=== PATIENT | male | born 1945 | race American Indian/Alaskan Native ===

== ENCOUNTER 2018-01-18 20:05 | Inpatient (IN) | payer MEDICARE ==
--- NOTE | 2018-01-18 20:49 | Emergency Department Report ---
HPI - General Chief Complaint: Altered Mental Status Time Seen by Provider: 01/18/18 20:38 - HPI HPI: 72-year-old male presents to the emergency department via EMS from [facility] with a complaint of altered mental status. Patient presents awake but confused and with a moderate fever. The notes from the facility say that the resident is usually alert and oriented but he has been having some functional decline and is altered. He was supposed to have a revision of a dialysis port on this week with the appointment to be canceled. His primary care physician is Dr. Keller. There is a listing of a past medical history of prostate cancer, end-stage renal disease, non-insulin- dependent diabetes, history of viral hepatitis, hypertension and he is known for having generalized muscle weakness and/or lack of coordination. The patient himself is a poor historian. ED Past Medical Hx - Past Medical History Previous Medical History?: Yes Hx Hypertension: Yes (unknown) Hx Diabetes: Yes (unknown) Hx Renal Disease: Yes (unknown) - Surgical History Past Surgical History?: Yes Additional Surgical History: dialysis port on right side of chest, left front of foot amputation. - Social History Smoking Status: Unknown if ever smoked Substance Use Type: None ED Review of Systems ROS: Stated complaint: AMS Other details as noted in HPI Comment: Unobtainable due to pts medical conditions Physical Exam - Physical Exam Vital Signs: Vital Signs 01/18/18 20:11 Temperature 103.6 F H Pulse Rate 110 H Blood Pressure 130/66 O2 Sat by Pulse 99 Oximetry Physical Exam: GENERAL: The patient is well-developed well-nourished. HENT: Normocephalic. Atraumatic. Patient has moist mucous membranes. EYES: Extraocular motions are intact. Pupils equal reactive to light bilaterally. NECK: Supple. Trachea is midline. CHEST/LUNGS: Clear to auscultation. There is no respiratory distress noted. Dialysis port to the right side of the chest. HEART/CARDIOVASCULAR: Regular. There is mild tachycardia. There is no murmur. ABDOMEN: Abdomen is soft, nontender. Patient has normal bowel sounds. There is no abdominal distention. SKIN: Skin is hot but dry. NEURO: Patient is awake but confused. He does follow commands. Oriented to name only. MUSCULOSKELETAL: There is no tenderness or deformity. There is no evidence of acute injury. ED Course Vital Signs 01/18/18 20:11 Temperature 103.6 F H Pulse Rate 110 H Blood Pressure 130/66 O2 Sat by Pulse 99 Oximetry ED Medical Decision Making - Lab Data Result diagrams: 01/18/18 21:01 01/18/18 21:01 - EKG Data -: EKG Interpreted by Me EKG shows normal: sinus rhythm (PVCs), axis, intervals, QRS complexes, ST-T waves Rate: tachycardia (121 bpm) - EKG Data When compared to previous EKG there are: previous EKG unavailable Interpretation: other (sinus tachycardia at 121 bpm with PVCs) - Radiology Data Radiology results: report reviewed, image reviewed interpreted by me: Chest x-ray does not show any acute process. There are no pleural effusions, obvious pneumonia and there is no pneumothorax. EXAM: CT HEAD/BRAIN WO CON HISTORY: AMS TECHNIQUE: Axial noncontrast CT images of the brain were performed. Total exam DLP 1380.72 mGy-cm Comparison: None FINDINGS: Exam is motion degraded. There is cortical atrophy and periventricular white matter hypodensity most suggestive of small vessel ischemic disease. There is minimal bilateral basal ganglia calcification. There are no acute extra-axial fluid collections or intraparenchymal blood products. Axial sequence was performed with persistent motion artifact. Mild prominence of the ventricles appears to be due to ex vacuo dilatation. There is bilateral anterior and posterior ethmoid air cell mucosal thickening. Mild bilateral maxillary sinus mucosal thickening. No displaced calvarial fracture. Mildly dysconjugate gaze. The orbital cones and apices are grossly normal. IMPRESSION: Cortical and central atrophy. No acute transcortical infarct or bleed identified. Ethmoid and maxillary sinus mucosal thickening. If symptoms persist and there are no contraindications, recommend MRI brain with diffusion-weighted imaging. Transcribed By: ANN Dictated By: TERRANCE BRENNER Electronically Authenticated By: TERRANCE BRENNER Signed Date/Time: 01/18/182141 - Medical Decision Making Patient presents from his [facility] with the complaint of altered mental status. He has a fever of 103. He has a Maharaj catheter in place that has what appears to be some bloody and infected urine. Urinalysis came back showing a significant urinary tract infection as the source of his sepsis. He will be admitted to the hospital for further evaluation and treatment and has been accepted for admission by the hospitalist, Dr. Morfin. Blood and urine cultures have been sent and the patient was started on Zosyn. Portions of this chart were dictated using dictation software, and therefore there may be some dictation errors within this note. - Differential Diagnosis sepsis, UTI, pneumonia, viral syndrome, dementia Critical Care Time: No Critical care attestation.: If time is entered above; I have spent that time in minutes in the direct care of this critically ill patient, excluding procedure time. ED Disposition Clinical Impression: Sepsis Qualifiers: Sepsis type: sepsis due to unspecified organism Qualified Code(s): A41.9 - Sepsis, unspecified organism UTI (urinary tract infection) Qualifiers: Urinary tract infection type: acute cystitis Hematuria presence: with hematuria Qualified Code(s): N30.01 - Acute cystitis with hematuria Altered mental status Qualifiers: Altered mental status type: unspecified Qualified Code(s): R41.82 - Altered mental status, unspecified Disposition: DC-09 OP ADMIT IP TO THIS HOSP Is pt being admited?: Yes Condition: Serious Time of Disposition: 04:29
[2018-01-18 21:18] LABS: Basophils # (Auto) 0.1 K/mm3 (0.0-0.1); Basophils % (Auto) 0.8 % (0.0-1.8); Eosinophils # (Auto) 0.2 K/mm3 (0.0-0.4); Eosinophils % (Auto) 1.9 % (0.0-4.3); Hematocrit 32.8 % (35.5-45.6); Hemoglobin 10.3 gm/dl (11.8-15.2); Lymphocytes # (Auto) 1.1 K/mm3 (1.2-5.4); Lymphocytes % (Auto) 11.6 % (13.4-35.0); Mean Corpuscular HGB Conc 31 % (32-34); Mean Corpuscular Hemoglobin 27 pg (28-32); Mean Corpuscular Volume 85 fl (84-94); Monocytes # (Auto) 0.9 K/mm3 (0.0-0.8); Monocytes % (Auto) 9.3 % (0.0-7.3); Platelet Count 260 K/mm3 (140-440); Red Blood Count 3.86 M/mm3 (3.65-5.03); Red Cell Distribution Width 19.8 % (13.2-15.2)
[2018-01-18 21:36] LABS: Albumin 2.8 g/dL (3.9-5); Calcium 8.2 mg/dL (8.4-10.2)
--- NOTE | 2018-01-18 21:47 | Cat Scan Report ---
FINAL REPORT EXAM: CT HEAD/BRAIN WO CON HISTORY: AMS TECHNIQUE: Axial noncontrast CT images of the brain were performed. Total exam DLP 1380.72 mGy-cm Comparison: None FINDINGS: Exam is motion degraded. There is cortical atrophy and periventricular white matter hypodensity most suggestive of small vessel ischemic disease. There is minimal bilateral basal ganglia calcification. There are no acute extra-axial fluid collections or intraparenchymal blood products. Axial sequence was performed with persistent motion artifact. Mild prominence of the ventricles appears to be due to ex vacuo dilatation. There is bilateral anterior and posterior ethmoid air cell mucosal thickening. Mild bilateral maxillary sinus mucosal thickening. No displaced calvarial fracture. Mildly dysconjugate gaze. The orbital cones and apices are grossly normal. IMPRESSION: Cortical and central atrophy. No acute transcortical infarct or bleed identified. Ethmoid and maxillary sinus mucosal thickening. If symptoms persist and there are no contraindications, recommend MRI brain with diffusion-weighted imaging.
[2018-01-18] MEDS ORDERED: ZOSYN/NS 4.5GM/100ML 4.5 GM/100 ML VIAL IV SCH (22:00)
[2018-01-18] MEDS ORDERED: TYLENOL ONE (23:06)
[2018-01-18] MEDS ORDERED: TYLENOL PO ONE (23:13)
--- NOTE | 2018-01-18 23:29 | XRay Report ---
FINAL REPORT PROCEDURE: XR CHEST 1V AP TECHNIQUE: Chest radiograph anteroposterior view. CPT 10244 HISTORY: fever COMPARISON: No prior studies are available for comparison. FINDINGS: Heart: Normal. Mediastinum/Vessels: Normal. Lungs/Pleural space: Normal. Bony thorax: No acute osseous abnormality. Life support devices: Central catheter on the right extending to the right atrium. IMPRESSION: No acute cardiopulmonary abnormality.
[2018-01-19] MEDS ORDERED: TYLENOL ONE (02:34)
[2018-01-19] MEDS ORDERED: TYLENOL PO ONE (02:43)
[2018-01-19] MEDS ORDERED: TYLENOL PO PRN (02:55)
[2018-01-19] MEDS ORDERED: D50W (25GM) Syringe IV PRN (02:55)
[2018-01-19] MEDS ORDERED: ZOFRAN IV PRN (02:55)
[2018-01-19] MEDS ORDERED: SODIUM CHLORIDE FLUSH SYRINGE 10 ML IV PRN (02:55)
--- NOTE | 2018-01-19 02:58 | History and Physical Report ---
History of Present Illness Date of examination: 01/19/18 History of present illness: 72 year-old man with history of hypertension, diabetes, ESRD comes to the ER for evaluation of altered mental status. The patient is unable to give a history , review of systems unobtainable. Ge has a foly, urine is purulent PAST MEDICAL HISTORY: hypertension, DM, ESRD PAST SURGICAL HISTORY: Unknown SOCIAL HISTORY: unknown FAMILY HISTORY: Unknown Medications and Allergies Allergies Allergy/AdvReac Type Severity Reaction Status Date / Time No Known Allergies Allergy Verified 01/18/18 20:10 Exam - Physical Exam Narrative exam: Gen. appearance: Patient lying in bed in no acute distress, on BIPAP HEENT: Normocephalic/atraumatic, pupils equal round reactive to light, extra occular movement intact, no scleral icterus, no JVD or thyromegaly or nodule, neck is supple, mucous membrane moist, no erythema or exudate Heart: S1-S2, regular rate and rhythm Lungs:Clear, breathing comfortable Abdomen: Positive bowel sounds, nontender, nondistended, no organomegaly Extremities: No edema, cyanosis, clubbing Neuro:: Oriented to self Skin: No rash, nodules, warm dry - Constitutional Vitals: Temp Pulse Resp BP Pulse Ox 101.0 F H 111 H 19 134/72 98 01/18/18 20:45 01/18/18 22:59 01/18/18 22:59 01/18/18 22:59 01/18/18 22:59 Results - Labs CBC & Chem 7: 01/18/18 21:01 01/18/18 21:01 Labs: Abnormal lab results 01/18/18 01/18/18 Range/Units 21:01 21:01 Hgb 10.3 L (11.8-15.2) gm/dl Hct 32.8 L (35.5-45.6) % MCH 27 L (28-32) pg MCHC 31 L (32-34) % RDW 19.8 H (13.2-15.2) % Lymph % (Auto) 11.6 L (13.4-35.0) % [place] % (Auto) 9.3 H (0.0-7.3) % Lymph # 1.1 L (1.2-5.4) K/mm3 [place] # 0.9 H (0.0-0.8) K/mm3 Seg Neutrophils % 76.4 H (40.0-70.0) % Sodium 133 L (137-145) mmol/L Chloride 95.4 L (98-107) mmol/L BUN 29 H (9-20) mg/dL Creatinine 3.2 H (0.8-1.5) mg/dL Glucose 125 H (75-100) mg/dL Calcium 8.2 L (8.4-10.2) mg/dL Albumin 2.8 L (3.9-5) g/dL - Imaging and Cardiology Chest x-ray: report reviewed CT Scan - head: report reviewed Assessment and Plan assessment Encephalopathy UTI hypertension Diabetes ESRD Plan Admit to medicine Srtart iv zosyn, follow cultures check fingersticks, sliding scale dvt prophalaxis s/p dialysis today
[2018-01-19] MEDS: ZOSYN/NS 2.25 GM/50ML 2.25 GM/50 ML BAG IV SCH ×3 (05:44→21:33)
[2018-01-19 05:58] LABS: Bacteria,Urine 4+ /HPF (Negative); Bilirubin,Urine NEG (Negative); Blood,Urine MOD (Negative); Color,Urine Red (Yellow); Urobilinogen,Urine < 2.0 mg/dL (<2.0)
[2018-01-19 05:59] LABS: RBC,Urine > 182.0 /HPF (0.0-6.0)
[2018-01-19 06:00] LABS: Mucus,Urine 2+ /HPF; WBC,Urine > 182.0 /HPF (0.0-6.0)
[2018-01-19] MEDS: HumaLOG SUB-Q SCH ×4 (07:30→22:30)
--- NOTE | 2018-01-19 10:25 | Progress Note ---
Assessment and Plan 72 year-old man with history of hypertension, diabetes, ESRD comes to the ER for evaluation of altered mental status. The patient is unable to give a history , Has a foly in place. urine is purulent Encephalopathy UTI hypertension Diabetes ESRD Plan Srtart iv zosyn, Urine cx follow cultures Optimize BP control check fingersticks, sliding scale dvt prophalaxis s/p dialysis today Subjective Date of service: 01/19/18 Principal diagnosis: metabolic encephalopathy, UTI, diabetes mellitus Interval history: Patient seen and examined. Lying quietly in bed. No distress. Objective - Exam Narrative Exam: Constitutional: Well-nourished well-developed. In no distress Head: Normocephalic atraumatic Eyes: Pupils are equal round and reactive to light Nose: No enlarged turbinates, no septal deviation. Mouth: Moist mucous membranes. Neck: Supple no thyromegaly. No bruit. No JVD Heart: Regular rate and rhythm, S1-S2 abnormal. No rubs murmurs or gallop Lungs: Clear to auscultation bilaterally no rales or rhonchi Abdomen: Soft, nontender. Bowel sound are present. Extremities: No edema no cyanosis and no clubbing. Neuro: Alert oriented Oriented x3. No focal sensory or motor deficit. Skin: No rashes no hyperemic spots Psychiatry: Euthymic. Calm. - Constitutional Vitals: Vital Signs - 12hr 01/18/18 01/19/18 01/19/18 22:59 01:20 02:56 Temperature 100.9 F H Pulse Rate 111 H 126 H Respiratory 19 20 27 H Rate Blood Pressure Blood Pressure 134/72 [Left] O2 Sat by Pulse 98 95 95 Oximetry 01/19/18 01/19/18 01/19/18 03:16 04:44 06:27 Temperature 100.9 F H 100.9 F H Pulse Rate 125 H 114 H Respiratory 21 16 18 Rate Blood Pressure 95/52 Blood Pressure 130/66 [Left] O2 Sat by Pulse 96 93 Oximetry 01/19/18 08:52 Temperature 98.3 F Pulse Rate 93 H Respiratory 20 Rate Blood Pressure Blood Pressure 94/53 [Left] O2 Sat by Pulse 95 Oximetry - Labs CBC & Chem 7: 01/18/18 21:01 01/18/18 21:01 Labs: Abnormal lab results 01/18/18 01/18/18 01/19/18 Range/Units 21:01 21:01 01:00 Hgb 10.3 L (11.8-15.2) gm/dl Hct 32.8 L (35.5-45.6) % MCH 27 L (28-32) pg MCHC 31 L (32-34) % RDW 19.8 H (13.2-15.2) % Lymph % (Auto) 11.6 L (13.4-35.0) % [place] % (Auto) 9.3 H (0.0-7.3) % Lymph # 1.1 L (1.2-5.4) K/mm3 [place] # 0.9 H (0.0-0.8) K/mm3 Seg Neutrophils % 76.4 H (40.0-70.0) % Sodium 133 L (137-145) mmol/L Chloride 95.4 L (98-107) mmol/L BUN 29 H (9-20) mg/dL Creatinine 3.2 H (0.8-1.5) mg/dL Glucose 125 H (75-100) mg/dL POC Glucose (70-105) Calcium 8.2 L (8.4-10.2) mg/dL Albumin 2.8 L (3.9-5) g/dL Urine pH 8.0 H (5.0-7.0) Urine WBC (Auto) > 182.0 H (0.0-6.0) /HPF 01/19/18 Range/Units 08:04 Hgb (11.8-15.2) gm/dl Hct (35.5-45.6) % MCH (28-32) pg MCHC (32-34) % RDW (13.2-15.2) % Lymph % (Auto) (13.4-35.0) % [place] % (Auto) (0.0-7.3) % Lymph # (1.2-5.4) K/mm3 [place] # (0.0-0.8) K/mm3 Seg Neutrophils % (40.0-70.0) % Sodium (137-145) mmol/L Chloride (98-107) mmol/L BUN (9-20) mg/dL Creatinine (0.8-1.5) mg/dL Glucose (75-100) mg/dL POC Glucose 153 H (70-105) Calcium (8.4-10.2) mg/dL Albumin (3.9-5) g/dL Urine pH (5.0-7.0) Urine WBC (Auto) (0.0-6.0) /HPF
[2018-01-19] MEDS: LOVENOX SUB-Q SCH (11:57)
[2018-01-19] MEDS: SODIUM CHLORIDE FLUSH SYRINGE 10 ML IV SCH ×2 (13:45→21:34)
--- NOTE | 2018-01-19 23:36 | Event Note ---
Date: 01/19/18 Patient of mine that i had sent to ER for sepsis like sxs. Patient seen in the ED, labs revealed uti, patient started on IV ABX. He is seen again, weak looking.and lethargic. easily aroused.exam other kimble fair for heart, lung, and abd. Sepsis due to UTI, Anemia of Chronic dz., NH patient. AFTT/debility.Will follow you with current management.
[2018-01-20] MEDS: ZOSYN/NS 2.25 GM/50ML 2.25 GM/50 ML BAG IV SCH ×3 (05:32→22:21)
[2018-01-20 08:03] LABS: Basophils # (Auto) 0.1 K/mm3 (0.0-0.1); Basophils % (Auto) 0.4 % (0.0-1.8); Eosinophils # (Auto) 0.1 K/mm3 (0.0-0.4); Eosinophils % (Auto) 0.4 % (0.0-4.3); Lymphocytes # (Auto) 1.5 K/mm3 (1.2-5.4); Lymphocytes % (Auto) 8.9 % (13.4-35.0); Mean Corpuscular HGB Conc 30 % (32-34); Mean Corpuscular Volume 87 fl (84-94); Monocytes # (Auto) 1.3 K/mm3 (0.0-0.8); Monocytes % (Auto) 7.8 % (0.0-7.3); Platelet Count 306 K/mm3 (140-440); Red Blood Count 3.86 M/mm3 (3.65-5.03)
[2018-01-20 08:05] LABS: Hematocrit 33.5 % (35.5-45.6); Mean Corpuscular Hemoglobin 26 pg (28-32); Red Cell Distribution Width 20.2 % (13.2-15.2)
[2018-01-20 08:14] LABS: Calcium 8.1 mg/dL (8.4-10.2)
[2018-01-20] MEDS: HumaLOG SUB-Q SCH ×4 (09:47→23:10)
--- NOTE | 2018-01-20 11:47 | Progress Note ---
Assessment and Plan Assessment and Plan 72 year-old man with history of hypertension, diabetes, ESRD comes to the ER for evaluation of altered mental status. The patient is unable to give a history Today more alert and oriented.Able to identify his Oxidation Operator as Dr Chacon, Has a foly in place. urine is purulent Encephalopathy UTI hypertension Diabetes ESRD Plan ON iv zosyn, Blood cultures 1 set --Gram positive cocci in pairs --no sensitivity yet Optimize BP control check fingersticks, sliding scale dvt prophalaxis Nephrology consult ordered Subjective Date of service: 01/20/18 Principal diagnosis: metabolic encephalopathy, UTI, diabetes mellitus Interval history: More alert and oriented today Objective - Constitutional Vitals: Vital Signs - 12hr 01/20/18 01/20/18 01/20/18 02:50 07:22 08:59 Temperature 100.2 F H Pulse Rate 113 H 99 H Respiratory 18 24 Rate Blood Pressure 119/62 Blood Pressure 90/54 [Left] O2 Sat by Pulse 94 92 93 Oximetry General appearance: Present: no acute distress, well-nourished - EENT Eyes: PERRL, EOM intact ENT: hearing intact, clear oral mucosa Ears: bilateral: normal - Neck Neck: supple, normal ROM - Respiratory Respiratory effort: normal Respiratory: bilateral: CTA - Breasts Breasts: normal - Cardiovascular Rhythm: regular Heart Sounds: Present: S1 & S2. Absent: gallop, rub Extremities: pulses intact, No edema, normal color, Full ROM - Gastrointestinal General gastrointestinal: Present: soft, non-tender, non-distended, normal bowel sounds - Genitourinary Male genitourinary: normal - Integumentary Integumentary: clear, warm, dry - Musculoskeletal Musculoskeletal: 1, strength equal bilaterally - Neurologic Neurologic: moves all extremities - Psychiatric Psychiatric: memory intact, appropriate mood/affect, intact judgment & insight - Labs CBC & Chem 7: 01/20/18 07:11 01/20/18 07:11 Labs: Abnormal lab results 01/19/18 01/19/18 01/19/18 Range/Units 11:30 16:35 22:40 WBC (4.5-11.0) K/mm3 Hgb (11.8-15.2) gm/dl Hct (35.5-45.6) % MCH (28-32) pg MCHC (32-34) % RDW (13.2-15.2) % Lymph % (Auto) (13.4-35.0) % [place] % (Auto) (0.0-7.3) % [place] # (0.0-0.8) K/mm3 Seg Neutrophils % (40.0-70.0) % Seg Neutrophils # (1.8-7.7) K/mm3 Sodium (137-145) mmol/L Chloride (98-107) mmol/L BUN (9-20) mg/dL Creatinine (0.8-1.5) mg/dL Glucose (75-100) mg/dL POC Glucose 210 H 177 H 137 H (70-105) Calcium (8.4-10.2) mg/dL 01/20/18 01/20/18 01/20/18 Range/Units 07:11 07:11 07:23 WBC 17.0 H (4.5-11.0) K/mm3 Hgb 10.0 L (11.8-15.2) gm/dl Hct 33.5 L (35.5-45.6) % MCH 26 L (28-32) pg MCHC 30 L (32-34) % RDW 20.2 H (13.2-15.2) % Lymph % (Auto) 8.9 L (13.4-35.0) % [place] % (Auto) 7.8 H (0.0-7.3) % [place] # 1.3 H (0.0-0.8) K/mm3 Seg Neutrophils % 82.5 H (40.0-70.0) % Seg Neutrophils # 14.0 H (1.8-7.7) K/mm3 Sodium 133 L (137-145) mmol/L Chloride 92.4 L (98-107) mmol/L BUN 53 H (9-20) mg/dL Creatinine 5.6 H D (0.8-1.5) mg/dL Glucose 128 H (75-100) mg/dL POC Glucose 132 H (70-105) Calcium 8.1 L (8.4-10.2) mg/dL
[2018-01-20] MEDS: LOVENOX SUB-Q SCH (11:49)
[2018-01-20] MEDS: SODIUM CHLORIDE FLUSH SYRINGE 10 ML IV SCH ×2 (11:49→22:21)
[2018-01-20] MEDS: NACL 0.9% 1000 ML 1,000 ML IV SCH (22:20)
--- NOTE | 2018-01-21 00:29 | Progress Note ---
Assessment and Plan - Patient Problems (1) Altered mental status Current Visit: Yes Status: Acute Qualifiers: Altered mental status type: unspecified Qualified Code(s): R41.82 - Altered mental status, unspecified Plan to address problem: supportive. (2) Sepsis Current Visit: Yes Status: Acute Qualifiers: Sepsis type: sepsis due to unspecified organism Qualified Code(s): A41.9 - Sepsis, unspecified organism Plan to address problem: continue with current management. (3) Debility, unspecified Current Visit: Yes Status: Acute Plan to address problem: supportive care Subjective Date of service: 01/21/18 Principal diagnosis: metabolic encephalopathy, UTI, diabetes mellitus Interval history: Patient seen, resting in bed, labs reviewed, and stable. Objective - Constitutional Vitals: Vital Signs - 12hr 01/20/18 19:37 Temperature 98.4 F Pulse Rate 96 H Respiratory 16 Rate Blood Pressure 93/57 O2 Sat by Pulse 93 Oximetry General appearance: Present: mild distress - EENT Eyes: PERRL, EOM intact ENT: hearing intact, clear oral mucosa Ears: bilateral: normal - Neck Neck: supple, normal ROM - Respiratory Respiratory effort: normal Respiratory: bilateral: CTA - Breasts Breasts: deferred - Cardiovascular Rhythm: regular Heart Sounds: Present: S1 & S2. Absent: gallop, rub Extremities: pulses intact, No edema, normal color, Full ROM - Gastrointestinal General gastrointestinal: Present: soft, non-tender, non-distended, normal bowel sounds Rectal Exam: deferred - Genitourinary Male genitourinary: deferred - Integumentary Integumentary: clear, warm, dry - Musculoskeletal Musculoskeletal: 1, strength equal bilaterally - Neurologic Neurologic: moves all extremities - Psychiatric Psychiatric: memory intact, appropriate mood/affect, intact judgment & insight - Labs CBC & Chem 7: 01/20/18 07:11 01/20/18 07:11 Labs: Abnormal lab results 01/20/18 01/20/18 01/20/18 Range/Units 07:11 07:11 07:23 WBC 17.0 H (4.5-11.0) K/mm3 Hgb 10.0 L (11.8-15.2) gm/dl Hct 33.5 L (35.5-45.6) % MCH 26 L (28-32) pg MCHC 30 L (32-34) % RDW 20.2 H (13.2-15.2) % Lymph % (Auto) 8.9 L (13.4-35.0) % [place] % (Auto) 7.8 H (0.0-7.3) % [place] # 1.3 H (0.0-0.8) K/mm3 Seg Neutrophils % 82.5 H (40.0-70.0) % Seg Neutrophils # 14.0 H (1.8-7.7) K/mm3 Sodium 133 L (137-145) mmol/L Chloride 92.4 L (98-107) mmol/L BUN 53 H (9-20) mg/dL Creatinine 5.6 H D (0.8-1.5) mg/dL Glucose 128 H (75-100) mg/dL POC Glucose 132 H (70-105) Calcium 8.1 L (8.4-10.2) mg/dL 01/20/18 01/20/18 Range/Units 16:28 21:02 WBC (4.5-11.0) K/mm3 Hgb (11.8-15.2) gm/dl Hct (35.5-45.6) % MCH (28-32) pg MCHC (32-34) % RDW (13.2-15.2) % Lymph % (Auto) (13.4-35.0) % [place] % (Auto) (0.0-7.3) % [place] # (0.0-0.8) K/mm3 Seg Neutrophils % (40.0-70.0) % Seg Neutrophils # (1.8-7.7) K/mm3 Sodium (137-145) mmol/L Chloride (98-107) mmol/L BUN (9-20) mg/dL Creatinine (0.8-1.5) mg/dL Glucose (75-100) mg/dL POC Glucose 106 H 169 H (70-105) Calcium (8.4-10.2) mg/dL
[2018-01-21] MEDS: ZOSYN/NS 2.25 GM/50ML 2.25 GM/50 ML BAG IV SCH ×3 (05:37→22:13)
[2018-01-21 05:45] LABS: Creatinine,Urine 69.4 mg/dL (0.1-20.0)
[2018-01-21 06:36] LABS: Calcium 7.8 mg/dL (8.4-10.2)
--- NOTE | 2018-01-21 08:20 | Consultation ---
<ROSANA HAWKINS - Last Filed: 01/21/18 15:25> Medications and Allergies Allergies Allergy/AdvReac Type Severity Reaction Status Date / Time No Known Allergies Allergy Verified 01/18/18 20:10 Active Meds: Active Medications Acetaminophen (Tylenol) 650 mg PO Q4H PRN PRN Reason: Pain MILD(1-3)/Fever >100.5/PARSON Last Admin: 01/19/18 16:37 Dose: 650 mg Dextrose (D50w (25gm) Syringe) 50 ml IV PRN PRN PRN Reason: Hypoglycemia Enoxaparin Sodium (Lovenox) 30 mg SUB-Q QDAY KIRSTEN Last Admin: 01/21/18 11:51 Dose: 30 mg Piperacillin Sod/Tazobactam Sod (Zosyn/Ns 2.25 Gm/50ml) 2.25 gm in 50 mls @ 100 mls/hr IV Q8HR KIRSTEN; Protocol Last Admin: 01/21/18 05:37 Dose: 100 mls/hr Sodium Chloride (Nacl 0.9% 1000 Ml) 1,000 mls @ 50 mls/hr IV DIRECT KIRSTEN Last Admin: 01/20/18 22:20 Dose: 100 mls/hr Insulin Human Lispro (Humalog) 0 unit SUB-Q ACHS KIRSTEN; Protocol Last Admin: 01/21/18 11:52 Dose: 3 unit Ondansetron HCl (Zofran) 4 mg IV Q8H PRN PRN Reason: Nausea And Vomiting Sodium Chloride (Sodium Chloride Flush Syringe 10 Ml) 10 ml IV BID KIRSTEN Last Admin: 01/21/18 11:52 Dose: 10 ml Sodium Chloride (Sodium Chloride Flush Syringe 10 Ml) 10 ml IV PRN PRN PRN Reason: LINE FLUSH Exam - Vital Signs Vital signs: Vital Signs Temp Pulse BP Pulse Ox 103.6 F H 110 H 130/66 99 01/18/18 20:11 01/18/18 20:11 01/18/18 20:11 01/18/18 20:11 Results - Lab Results 01/20/18 07:11 01/21/18 05:22 Most recent lab results Calcium 7.8 mg/dL (8.4-10.2) L 01/21/18 05:22 Urine Creatinine 69.4 mg/dL (0.1-20.0) H 01/20/18 05:00 Urine Sodium 92 mmol/L 01/20/18 05:00 <BEVERLY KNIGHT - Last Filed: 01/21/18 21:55> History of Present Illness - Reason for Consult Consult date: 01/21/18 end stage renal disease - History of Present Illness The patient is a 72 YO male with history significant for DM-2, HTN, ESRD on hemodialysis, Ca prostate and h/o Viral hepatitis who came to the hospital for evaluation of AMS. Patient is a poor historian and his daughters at the bedside were not able to provide any history. He gets hemodialysis at [facility] on TTS. He missed hemodialysis this past Monday and Monday. Patient reports decreased appetite. He denies any N, V, D, abd pain , fever, chills, dizziness, rash, CP, SOB, leg swelling or syncope. Past History Past Medical History: diabetes, dialysis, ESRD, hypertension Medications and Allergies Active Meds: Active Medications Acetaminophen (Tylenol) 650 mg PO Q4H PRN PRN Reason: Pain MILD(1-3)/Fever >100.5/PARSON Last Admin: 01/19/18 16:37 Dose: 650 mg Dextrose (D50w (25gm) Syringe) 50 ml IV PRN PRN PRN Reason: Hypoglycemia Enoxaparin Sodium (Lovenox) 30 mg SUB-Q QDAY KIRSTEN Last Admin: 01/20/18 11:49 Dose: 30 mg Piperacillin Sod/Tazobactam Sod (Zosyn/Ns 2.25 Gm/50ml) 2.25 gm in 50 mls @ 100 mls/hr IV Q8HR KIRSTEN; Protocol Last Admin: 01/21/18 05:37 Dose: 100 mls/hr Sodium Chloride (Nacl 0.9% 1000 Ml) 1,000 mls @ 100 mls/hr IV DIRECT KIRSTEN Last Admin: 01/20/18 22:20 Dose: 100 mls/hr Insulin Human Lispro (Humalog) 0 unit SUB-Q ACHS KIRSTEN; Protocol Last Admin: 01/20/18 23:10 Dose: 3 unit Ondansetron HCl (Zofran) 4 mg IV Q8H PRN PRN Reason: Nausea And Vomiting Sodium Chloride (Sodium Chloride Flush Syringe 10 Ml) 10 ml IV BID KIRSTEN Last Admin: 01/20/18 22:21 Dose: 10 ml Sodium Chloride (Sodium Chloride Flush Syringe 10 Ml) 10 ml IV PRN PRN PRN Reason: LINE FLUSH Review of Systems ROS unobtainable: due to mental status Exam - Vital Signs Vital signs: Vital Signs Temp Pulse BP Pulse Ox 103.6 F H 110 H 130/66 99 01/18/18 20:11 01/18/18 20:11 01/18/18 20:11 01/18/18 20:11 - General Appearance General appearance: well-developed, appears stated age, other (appears emaciated , right IJ tunnel catheter) EENT: ATNC, PERRL, mucous membranes dry Neck: Present: neck supple, trachea midline Respiratory: Clear to Ascultation Heart: regular, S1S2, no murmurs Gastrointestinal: Present: normoactive bowel sounds. Absent: tenderness Integumentary: no rash, warm and dry Neurologic: no focal deficit, no asterixis, confused, disoriented Musculoskeletal: Present: other (no edema) Psychiatric: cooperative Results - Lab Results 01/20/18 07:11 01/21/18 05:22 Most recent lab results Calcium 7.8 mg/dL (8.4-10.2) L 01/21/18 05:22 Urine Creatinine 69.4 mg/dL (0.1-20.0) H 01/20/18 05:00 Urine Sodium 92 mmol/L 01/20/18 05:00 Assessment and Plan 1. ESRD: Continue hemodialysis three times a week. Plan to do HD tomorrow. 2. Volume depletion: IV fluids. 3. Urosepsis. 4. Anemia. 5. AMS.
[2018-01-21] MEDS: HumaLOG SUB-Q SCH ×4 (08:23→22:13)
[2018-01-21] MEDS: LOVENOX SUB-Q SCH (11:51)
[2018-01-21] MEDS: SODIUM CHLORIDE FLUSH SYRINGE 10 ML IV SCH ×2 (11:52→22:14)
--- NOTE | 2018-01-21 15:17 | Progress Note ---
Assessment and Plan 72 year-old man with history of hypertension, diabetes, ESRD comes to the ER for evaluation of altered mental status. The patient is unable to give a history , Has a foly in place. urine is purulent Encephalopathy, metabolic UTI hypertension Diabetes ESRD Plan Continue iv zosyn, Urine cx follow cultures Optimize BP control check fingersticks, sliding scale dvt prophalaxis s/p dialysis today Subjective Date of service: 01/21/18 Principal diagnosis: metabolic encephalopathy, UTI, diabetes mellitus Interval history: Patient seen and examined. Lying quietly in bed. Afebrile, No distress. Objective - Exam Narrative Exam: Constitutional: Well-nourished well-developed. In no distress Head: Normocephalic atraumatic Eyes: Pupils are equal round and reactive to light Nose: No enlarged turbinates, no septal deviation. Mouth: Moist mucous membranes. Neck: Supple no thyromegaly. No bruit. No JVD Heart: Regular rate and rhythm, S1-S2 abnormal. No rubs murmurs or gallop Lungs: Clear to auscultation bilaterally no rales or rhonchi Abdomen: Soft, nontender. Bowel sound are present. Extremities: No edema no cyanosis and no clubbing. Neuro: Alert oriented Oriented x3. No focal sensory or motor deficit. Skin: No rashes no hyperemic spots Psychiatry: Euthymic. Calm. - Constitutional Vitals: Vital Signs - 12hr 01/21/18 01/21/18 07:21 10:00 Temperature 98.8 F Pulse Rate 99 H Respiratory 20 Rate Respiratory 20 Rate [Scrotum] Blood Pressure 128/72 O2 Sat by Pulse 97 Oximetry - Labs CBC & Chem 7: 01/20/18 07:11 01/21/18 05:22 Labs: Abnormal lab results 01/20/18 01/20/18 01/20/18 Range/Units 05:00 16:28 21:02 Sodium (137-145) mmol/L Chloride (98-107) mmol/L BUN (9-20) mg/dL Creatinine (0.8-1.5) mg/dL Glucose (75-100) mg/dL POC Glucose 106 H 169 H (70-105) Calcium (8.4-10.2) mg/dL Total Creatine Kinase (55-170) units/L Urine Creatinine 69.4 H (0.1-20.0) mg/dL 01/21/18 01/21/18 Range/Units 05:22 11:41 Sodium 134 L (137-145) mmol/L Chloride 95.8 L (98-107) mmol/L BUN 67 H (9-20) mg/dL Creatinine 6.5 H (0.8-1.5) mg/dL Glucose 72 L (75-100) mg/dL POC Glucose 234 H (70-105) Calcium 7.8 L (8.4-10.2) mg/dL Total Creatine Kinase 19 L (55-170) units/L Urine Creatinine (0.1-20.0) mg/dL
[2018-01-21] MEDS: NACL 0.9% 1000 ML 1,000 ML IV SCH (17:13)
[2018-01-21] MEDS ORDERED: NACL 0.9% 100 ML IV PRN (21:56)
--- NOTE | 2018-01-21 22:37 | Event Note ---
Date: 01/21/18 pATIENT SEEN/EXAMINED, RESTING IN BED, RECORDS/NOTES REVIEWED, no new issues at this time, He denies any problems, and he looks much stronger today.disposition as per you.
[2018-01-22] MEDS: ZOSYN/NS 2.25 GM/50ML 2.25 GM/50 ML BAG IV SCH (06:48)
[2018-01-22] MEDS: HumaLOG SUB-Q SCH (07:57)
--- NOTE | 2018-01-22 10:50 | Discharge Summary ---
Providers - Providers Date of Admission: 01/19/18 02:55 Attending physician: SANTIAGO POLK MD 01/19/18 16:48 Occupational Therapy Evaluate and Treat [CONS] Routine Comment: returning to SNF Reason For Exam: Debility Physical Therapy Evaluation and Treat [CONS] Routine Comment: Returning to SNF Reason For Exam: Debility 01/20/18 17:39 Consult to Physician [CONS] Routine Comment: left mess. to [id number]/ross Consulting Provider: KATTY SLATER Physician Instructions: Reason For Exam: pcp 01/20/18 18:08 Consult to Physician [CONS] Routine Comment: called answ. serv. /ross Consulting Provider: BEVERLY KNIGHT Physician Instructions: Reason For Exam: esrd Primary care physician: [employer] Hospitalization Reason for admission: encephalopathy Condition: Stable Hospital course: 72 year-old man with history of hypertension, diabetes, ESRD comes to the ER for evaluation of altered mental status. The patient is unable to give a history , Has a foly in place. urine is purulent, the patient has indwelling Maharaj catheter which was changed during admission. He remained afebrile with mental status improving. He was discharged on antibiotics with Cipro. He did have episodes of diarrhea while in-house. Prophylactically was started on Flagyl. Cultures from the urinalysis remained negative blood cultures were negative. Diet was emphasized considered malnutrition. Encephalopathy, metabolic UTI Sepsis secondary to acute cystitis Hypertensive urgency Diabetes ESRD Severe particular malnutrition Disposition: DC/TX-03 SNF [facility] Time spent for discharge: 35 MINS Core Measure Documentation - Palliative Care Palliative Care/ Comfort Measures: Not Applicable - Core Measures Any of the following diagnoses?: none - VTE Discharge Requirements Deep Vein Thrombosis/Pulmonary Embolism Present on Admission: No Exam - Physical Exam Narrative exam: VITAL SIGNS: Reviewed. GENERAL: The patient appeared chronically ill otherwise stable. Vital signs as documented. HEAD: No signs of head trauma. Cachectic EYES: Pupils are equal. Extraocular motions intact. EARS: Hearing grossly intact. MOUTH: Oropharynx is normal. NECK: No adenopathy, no JVD. CHEST: Chest with clear breath sounds bilaterally. No wheezes, rales, or rhonchi. CARDIAC: Regular rate and rhythm. S1 and S2, without murmurs, gallops, or rubs. VASCULAR: No Edema. Peripheral pulses normal and equal in all extremities. ABDOMEN: Soft, without detectable tenderness. No sign of distention. No rebound or guarding, and no masses palpated. Bowel Sounds normal. MUSCULOSKELETAL: Good range of motion of all major joints. Extremities without clubbing, cyanosis or edema. NEUROLOGIC EXAM: Alert and oriented x 3. No focal sensory or strength deficits. Speech normal. Follows commands. PSYCHIATRIC: Mood normal. SKIN: No rash or lesions. - Constitutional Vitals: Temp Pulse Resp BP Pulse Ox 97.9 F 84 18 138/83 96 01/22/18 09:40 01/22/18 10:30 01/22/18 09:40 01/22/18 10:30 01/22/18 08:03 Plan Activity: advance as tolerated, fall precautions Diet: diabetic, renal Special Instructions: record daily weights, record daily BP diary, record blood sugar diary Additional Instructions: FOLLOW WITH [employer] ATTENDANT Follow up with: PRIMARY CARE, [Primary Care Provider] - 3-5 Days Prescriptions: Ciprofloxacin HCl [Ciprofloxacin TAB] 500 mg PO Q12H #14 tab metroNIDAZOLE [Flagyl TAB] 500 mg PO Q8HR #20 tablet
--- NOTE | 2018-01-22 10:59 | Progress Note ---
Assessment and Plan 1. ESRD: Continue hemodialysis three times a week. Received HD today. 2. Volume depletion: IV fluids. 3. Urosepsis. 4. Anemia. 5. AMS. Subjective Date of service: 01/22/18 Principal diagnosis: metabolic encephalopathy, UTI, diabetes mellitus Interval history: Patient is feeling ok. Objective - Vital Signs Vital signs: Vital Signs - 12hr 01/22/18 01/22/18 01/22/18 02:31 08:03 09:40 Temperature 97.5 F L 98.7 F 97.9 F Pulse Rate 92 H 87 97 H Respiratory 18 16 18 Rate Blood Pressure 152/82 109/68 128/63 O2 Sat by Pulse 98 96 Oximetry 01/22/18 01/22/18 01/22/18 09:48 10:00 10:15 Temperature Pulse Rate 91 H 86 82 Respiratory Rate Blood Pressure 114/65 124/71 141/75 O2 Sat by Pulse Oximetry 01/22/18 10:30 Temperature Pulse Rate 84 Respiratory Rate Blood Pressure 138/83 O2 Sat by Pulse Oximetry - General Appearance General appearance: well-developed, appears stated age, other (emaciated, no distress, right IJ tunnel catheter) EENT: ATNC, PERRL, mucous membranes moist, vision intact Neck: supple Respiratory: Present: Clear to Ascultation Cardiology: regular, S1S2, no murmurs Gastrointestinal: normoactive bowel sounds, no tenderness Integumentary: no rash, warm and dry Neurologic: no focal deficit, no asterixis, confused, disoriented Musculoskeletal: other (no edema) Psychiatric: cooperative - Lab 01/20/18 07:11 01/21/18 05:22 Most recent lab results Calcium 7.8 mg/dL (8.4-10.2) L 01/21/18 05:22 Urine Creatinine 69.4 mg/dL (0.1-20.0) H 01/20/18 05:00 Urine Sodium 92 mmol/L 01/20/18 05:00
[2018-01-22] MEDS ORDERED: NACL 0.9 (PRIMING MACHINE ONLY DIALYSIS) MC ONE (11:08)
[2018-01-22 13:21] VITALS: BP 153/79
[2018-01-22] MEDS ORDERED: FLAGYL PO SCH (14:00)
== END 2018-01-22 15:30 | DRG 871 ==
LOC: ED 20:05 → 2B-ACE 01-19 02:55
PROVIDERS: ADMIT Internal Medicine; ATTEND Internal Medicine
PROC: 5A1D70Z Performance of Urinary Filtration, Intermittent, Less than 6 Hours Per Day (ICD-10-PCS; principal; 2018-01-22)
DX: A41.9 Sepsis, unspecified organism (principal); N18.6 End stage renal disease; G93.41 Metabolic encephalopathy; E43 Unspecified severe protein-calorie malnutrition; I12.0 Hypertensive chronic kidney disease with stage 5 chronic kidney disease or end stage renal disease; N30.00 Acute cystitis without hematuria; Z68.1 Body mass index [BMI] 19.9 or less, adult; K21.9 Gastro-esophageal reflux disease without esophagitis; E86.9 Volume depletion, unspecified; D64.9 Anemia, unspecified; I16.0 Hypertensive urgency; E11.22 Type 2 diabetes mellitus with diabetic chronic kidney disease; Z89.432 Acquired absence of left foot; Z85.46 Personal history of malignant neoplasm of prostate
CPT/HCPCS: 36415; 70450; 71045; 80048; 80053; 80320; 81001; 82140; 82550; 82570; 82962; 84300; 84443; 85025; 87040; 87086; 93005; 93010; 96365; 99285; G0480; G8978-GP; G8979-GP; J1650; J1815; J2543; J7030

== ENCOUNTER 2018-02-26 10:31 | Outpatient (CLI) | payer MEDICARE ==
--- NOTE | 2018-02-26 11:48 | Cat Scan Report ---
CT ABDOMEN PELVIS WITHOUT CONTRAST: HISTORY: Urine retention. COMPARISON: none. TECHNIQUE: Helical CT in 1.25mm intervals without IV contrast. Sagittal and coronal reconstructions. FINDINGS: Lung bases: Normal. Liver: Normal. Biliary system: Moderate noncalcified debris consistent with sludge is suspected in the gallbladder. No abnormal biliary dilatation. Pancreas: Normal. Spleen: Normal. Kidneys/ureters/bladder: There is moderate right perinephric stranding. The left kidney is unremarkable. There is moderate urothelial thickening identified in the right ureter. No ureteral stones or hydronephrosis. The bladder is decompressed with a Maharaj catheter. Mild to moderate bladder wall thickening could be present. The prostate gland is mildly enlarged. Adrenal glands: Normal. Aorta: Normal. Intestines: Unremarkable given no oral contrast was administered. No evidence for obstruction or focal inflammation. Appendix: Normal. Pelvic viscera: Normal. Ascites: None. Adenopathy: None. Musculoskeletal: Intact. Moderate lumbar spondylosis is noted. No suspicious bony lesions are detected. IMPRESSION: The bladder is collapsed and contains a Maharaj catheter. There may be mild bladder wall thickening compatible with trabeculation or UTI. Moderate right perinephric stranding. I cannot entirely exclude a right pyelonephritis on noncontrast CT. Please correlate with the patient's clinical presentation. Sludge in the gallbladder.
== END 2018-02-26 10:32 | disposition home or self-care (01) ==
LOC: CT 10:31
PROVIDERS: ATTEND Internal Medicine Hematology & Oncology
DX: K82.9 Disease of gallbladder, unspecified (principal); M47.896 Other spondylosis, lumbar region; I10 Essential (primary) hypertension
CPT/HCPCS: 74176

== ENCOUNTER 2018-03-28 23:31 | Inpatient (IN) | payer MEDICARE ==
--- NOTE | 2018-03-29 00:12 | Emergency Department Report ---
HPI - General Time Seen by Provider: 03/28/18 23:47 - HPI HPI: Room 5 The patient is a 72-year-old male presenting with a chief complaint of right lower extremity DVT. The patient states he had a discomfort in both legs earlier at the snf prompting them to perform bilateral lower extremity Dopplers. The Dopplers reveal right lower extremity DVT. Patient denies chest pain or shortness of breath. Patient currently denies leg pain Location: [See above] Duration: Days Quality: Discomfort Severity: Currently 0/10 Modifying factors: [see above] Context: [see above] Mode of transportation: [not driving] ED Past Medical Hx - Past Medical History Hx Hypertension: Yes (unknown) Hx Diabetes: Yes (unknown) Hx Renal Disease: Yes (unknown) Hx of Cancer: Yes (prostate CA) - Surgical History Past Surgical History?: No Additional Surgical History: dialysis port on right side of chest, left front of foot amputation. - Family History Family history: no significant - Social History Smoking Status: Never Smoker Substance Use Type: None - Medications Home Medications: Home Medications Medication Instructions Recorded Confirmed Last Taken Type Acetaminophen [Acetaminophen TAB] 650 mg PO Q4H PRN 03/12/18 03/12/18 Unknown History Calcium Acetate [Phoslo] 667 mg PO TID 03/12/18 03/12/18 Unknown History Carvedilol [Coreg] 6.25 mg PO BID 03/12/18 03/12/18 Unknown History Ergocalciferol 50,000 unit PO DAILY 03/12/18 03/12/18 Unknown History Flomax 0.4 mg PO HS 03/12/18 03/12/18 Unknown History Insulin Aspart [NovoLOG Flexpen] See Protocol SQ AC 03/12/18 03/12/18 Unknown History Loperamide [Imodium] 4 mg PO DAILY PRN 03/12/18 03/12/18 Unknown History ED Review of Systems ROS: Stated complaint: DVT LOWER LEGS Other details as noted in HPI Constitutional: no symptoms reported Eyes: denies: eye pain ENT: denies: throat pain Respiratory: no symptoms reported Cardiovascular: denies: chest pain Endocrine: no symptoms reported Gastrointestinal: denies: abdominal pain Genitourinary: denies: dysuria Musculoskeletal: denies: back pain Neurological: denies: headache Hematological/Lymphatic: other (right lower extremity DVT) Physical Exam - Physical Exam Physical Exam: GENERAL: The patient is well-developed well-nourished male sitting on stretcher not appearing to be in acute distress. [] HEENT: Normocephalic. Atraumatic. Extraocular motions are intact. Patient has moist mucous membranes. NECK: Supple. Trachea midline CHEST/LUNGS: Clear to auscultation. There is no respiratory distress noted. HEART/CARDIOVASCULAR: Regular. There is no tachycardia. There is no gallop rub or murmur. ABDOMEN: Abdomen is soft, nontender. Patient has normal bowel sounds. There is no abdominal distention. SKIN: There is no rash. There is no diaphoresis. NEURO: The patient is awake, alert, and oriented. The patient is cooperative. The patient has normal speech MUSCULOSKELETAL: There is no evidence of acute injury. ED Medical Decision Making - Lab Data Result diagrams: 03/29/18 00:01 03/29/18 00:01 Laboratory Tests 03/29/18 03/29/18 03/29/18 00:01 00:01 00:01 WBC 4.5 RBC 3.84 Hgb 10.6 L Hct 33.5 L MCV 87 MCH 28 MCHC 32 RDW 21.4 H Plt Count 206 Lymph % (Auto) Head Track Coach [place] % (Auto) Head Track Coach Baso % (Auto) Head Track Coach Lymph # Head Track Coach [place] # Head Track Coach Eos # Head Track Coach Baso # Head Track Coach Seg Neutrophils % Head Track Coach Seg Neutrophils # Head Track Coach PT 14.4 INR 1.07 APTT 39.4 H Sodium 139 Potassium 3.7 Chloride 101.7 Carbon Dioxide 24 Anion Gap 17 BUN 58 H Creatinine 3.4 H Estimated GFR 22 BUN/Creatinine Ratio 17 Glucose 89 Calcium 8.3 L - Differential Diagnosis DVT Critical care attestation.: If time is entered above; I have spent that time in minutes in the direct care of this critically ill patient, excluding procedure time. ED Disposition Clinical Impression: Acute deep vein thrombosis (DVT) of right lower extremity Disposition: OP ADMIT IP TO THIS HOSP Is pt being admited?: Yes Does the pt Need Aspirin: No Condition: Fair Referrals: PRIMARY CARE,MD [Primary Care Provider] - 3-5 Days Time of Disposition: 00:56 (hospitalist paged (Dr. Lilian Morfin))
[2018-03-29 00:23] LABS: INR 1.07 (0.87-1.13)
[2018-03-29 00:24] LABS: Partial Thromboplastin Time 39.4 Sec. (24.2-36.6)
[2018-03-29 00:30] LABS: Hematocrit 33.5 % (35.5-45.6); Hemoglobin 10.6 gm/dl (11.8-15.2); Mean Corpuscular HGB Conc 32 % (32-34); Mean Corpuscular Hemoglobin 28 pg (28-32); Mean Corpuscular Volume 87 fl (84-94); Platelet Count 206 K/mm3 (140-440); Red Blood Count 3.84 M/mm3 (3.65-5.03)
[2018-03-29 00:31] LABS: Red Cell Distribution Width 21.4 % (13.2-15.2)
[2018-03-29 00:53] LABS: Calcium 8.3 mg/dL (8.4-10.2)
[2018-03-29] MEDS ORDERED: LOVENOX SUB-Q ONE (00:59)
[2018-03-29 01:55] LABS: Total Cells Counted 100
[2018-03-29 01:56] LABS: Anisocytosis 1+; Hypochromasia 1+; Platelet Estimate Consistent w Auto
[2018-03-29] MEDS ORDERED: PERCOCET 5/325 PO PRN (02:23)
[2018-03-29] MEDS ORDERED: SODIUM CHLORIDE FLUSH SYRINGE 10 ML IV PRN (02:23)
[2018-03-29] MEDS ORDERED: ZOFRAN IV PRN (02:23)
[2018-03-29] MEDS ORDERED: TYLENOL PO PRN (02:23)
--- NOTE | 2018-03-29 02:23 | History and Physical Report ---
History of Present Illness Date of examination: 03/29/18 History of present illness: 72 year-old man with history of hypertension, diabetes, ESRD on dialysis Monday, , Monday, BPH, Prostate cancer was sent to the ER for evaluation of right leg pain. The patient had Doppler of the lower extremity which shows extensive right leg DVT. He denies any chest pain, shortness of her Review of systems Constitutional: no weight loss, chills, fever Ears, eyes, nose, mouth and throat: no nasal congestion, no nasal discharge, no sinus pressure, no vision change, no red eye. Neck: No neck pain or rigidity. Cardiovascular: no chest pain, palpitations Respiratory: no cough, shortness of breath Gastrointestinal: no abdominal pain hematochezia Genitourinary : no frequency , no hematuria Musculoskeletal: no joint swelling or muscle ache Integumentary: no rash, no pruritis Neurological: no parathesias, no numbness, no focal weakness Endocrine: no cold or heat intolerance, no polyuria or polydipsia Hematologic/Lymphatic: no easy bruising, no easy bleeding, no gland swelling Allergic/Immunologic: no urticaria, no angioedema. PAST MEDICAL HISTORY: hypertension, DM, ESRD PAST SURGICAL HISTORY: left TMA SOCIAL HISTORY: Denies alcohol, tobacco, drugs FAMILY HISTORY: Hypertension Medications and Allergies Allergies Allergy/AdvReac Type Severity Reaction Status Date / Time No Known Allergies Allergy Verified 01/18/18 20:10 Home Medications Medication Instructions Recorded Confirmed Last Taken Type Acetaminophen [Acetaminophen TAB] 650 mg PO Q4H PRN 03/12/18 03/29/18 Unknown History Calcium Acetate [Phoslo] 667 mg PO TID 03/12/18 03/29/18 Unknown History Carvedilol [Coreg] 6.25 mg PO BID 03/12/18 03/29/18 Unknown History Ergocalciferol 50,000 unit PO DAILY 03/12/18 03/29/18 Unknown History Flomax 0.4 mg PO HS 03/12/18 03/29/18 Unknown History Insulin Aspart [NovoLOG Flexpen] See Protocol SQ AC 03/12/18 03/29/18 Unknown History Loperamide [Imodium] 4 mg PO DAILY PRN 03/12/18 03/29/18 Unknown History Exam - Physical Exam Narrative exam: Gen. appearance: Patient lying in bed, no apparent distress HEENT: Normocephalic, atraumatic, pupils equally round and reactive to light, extraocular movement intact, and no sclericterus,. No JVD or thyromegaly or nodule,neck supple, no carotid bruit ,mucous membranes moist, no exudate or erythema Heart: S1, S2, regular rate and rhythm Lungs: Clear bilaterally, breathing comfortable Abdomen: Positive bowel sounds, non-tender, nondistended, no organomegaly Extremity:no edema cyanosis, clubbing Skin: no rash, dry, warm Neuro: Oriented 3, cranial nerves II-12 intact, speech is fluent, motor and sensory intact - Constitutional Vitals: Temp Pulse Resp BP Pulse Ox 98 F 99 H 12 169/90 100 03/29/18 00:38 03/29/18 00:38 03/29/18 00:38 03/29/18 00:38 03/29/18 00:38 Results - Labs CBC & Chem 7: 03/29/18 00:01 03/29/18 00:01 Labs: Abnormal lab results 03/29/18 03/29/18 03/29/18 Range/Units 00:01 00:01 00:01 Hgb 10.6 L (11.8-15.2) gm/dl Hct 33.5 L (35.5-45.6) % RDW 21.4 H (13.2-15.2) % Monocytes % (Manual) 8.0 H (0.0-7.3) % Eosinophils % (Manual) 10.0 H (0.0-4.3) % Lymphocytes # (Manual) 0.6 L (1.2-5.4) K/mm3 Eosinophils # (Manual) 0.5 H (0.0-0.4) K/mm3 APTT 39.4 H (24.2-36.6) Sec. BUN 58 H (9-20) mg/dL Creatinine 3.4 H (0.8-1.5) mg/dL Calcium 8.3 L (8.4-10.2) mg/dL Assessment and Plan assessment Right lower extremity DVT, extensive hypertension Diabetes ESRD Plan Admit to medicine Continue full dose Lovenox, consult renal for dialysis check fingersticks, sliding scale dvt prophalaxis
[2018-03-29] MEDS ORDERED: APRESOLINE IV PRN (02:26)
[2018-03-29] MEDS ORDERED: D50W (25GM) Syringe IV PRN (02:28)
--- NOTE | 2018-03-29 07:58 | Event Note ---
Date: 03/29/18 72-year-old male patient senior living resident was evaluated by lower extremity venous Doppler for swelling and pain Positive for right lower extremity DVT, admitted started on full dose Lovenox End-stage renal disease, on hemodialysis, nephrology consulted Patient seen and evaluated, Medical records reviewed Agree with the current management Consult hematology Assessment and plan; --Acute right lower extremity DVT; Continue Lovenox elevate the limb, transition to oral anticoagulants and stable, Consider hematology consultation as needed --Hypertension; continue current antihypertensives and when necessary medications --Type 2 diabetes mellitus; Accu-Chek sliding scale coverage ADA diet and insulin as needed --End-stage renal disease; on hemodialysis HD per schedule nephrology consulted --History of prostate cancer --DVT prophylaxis; patient is already on full dose Lovenox
[2018-03-29] MEDS: HumaLOG SUB-Q SCH ×4 (08:30→21:39)
[2018-03-29] MEDS ORDERED: NACL 0.9% 100 ML IV PRN (08:49)
[2018-03-29] MEDS: PHOSLO PO SCH ×3 (09:00→21:29)
--- NOTE | 2018-03-29 09:10 | Consultation ---
History of Present Illness - Reason for Consult Consult date: 03/29/18 end stage renal disease - History of Present Illness Pleasant 72 y/o AAM, with h/o DM. HTN and ESRD, HD dependant over the last year , [place] [facility] [place], who presented to the ED secondary to significant RLE swelling, found to have an extensive DVT. He states that he has also been experiencing pain in the right leg. Nephrology consulted for HD needs. Last HD session this past Monday. He is no acute distress at the present time. He is on room air with adequate 02 sats. He was sitting up in bed eating breakfast on my examination. He tells me that they have now started to cannualte his RUE AVF. I called the dialysis unit, and they informed me that they have been still cannulating with a 17 g needle, using low blood flows. Patient states that he still urinates but very little. He is unaware of his EDW. He still has his RIJ permcath in place. Past History Past Medical History: diabetes, dialysis, ESRD, hypertension Past Surgical History: Other (RUE AVF creation, Left TMA ) Social history: no significant social history Family history: hypertension Medications and Allergies Allergies Allergy/AdvReac Type Severity Reaction Status Date / Time No Known Allergies Allergy Verified 01/18/18 20:10 Home Medications Medication Instructions Recorded Confirmed Last Taken Type Acetaminophen [Acetaminophen TAB] 650 mg PO Q4H PRN 03/12/18 03/29/18 Unknown History Calcium Acetate [Phoslo] 667 mg PO TID 03/12/18 03/29/18 Unknown History Carvedilol [Coreg] 6.25 mg PO BID 03/12/18 03/29/18 Unknown History Ergocalciferol 50,000 unit PO DAILY 03/12/18 03/29/18 Unknown History Flomax 0.4 mg PO HS 03/12/18 03/29/18 Unknown History Insulin Aspart [NovoLOG Flexpen] See Protocol SQ AC 03/12/18 03/29/18 Unknown History Loperamide [Imodium] 4 mg PO DAILY PRN 03/12/18 03/29/18 Unknown History Active Meds: Active Medications Acetaminophen (Tylenol) 650 mg PO Q4H PRN PRN Reason: Pain MILD(1-3)/Fever >100.5/[facility] Calcium Acetate (Phoslo) 667 mg PO TID [facility] Carvedilol (Coreg) 6.25 mg PO BID [facility] Dextrose (D50w (25gm) Syringe) 50 ml IV PRN PRN PRN Reason: Hypoglycemia Hydralazine HCl (Apresoline) 5 mg IV Q6HR PRN PRN Reason: Hypertension Sodium Chloride (Nacl 0.9%) 100 mls @ 999 mls/hr IV ALEJO PRN PRN Reason: Hypotension Insulin Human Lispro (Humalog) 0 unit SUB-Q ACHS [facility]; Protocol Last Admin: 03/29/18 08:30 Dose: Not Given Miscellaneous Medication (Ergocalciferol) 50,000 unit PO DAILY [facility] Ondansetron HCl (Zofran) 4 mg IV Q8H PRN PRN Reason: Nausea And Vomiting Oxycodone/Acetaminophen (Percocet 5/325) 1 tab PO Q6H PRN PRN Reason: Pain, Moderate (4-6) Sodium Chloride (Sodium Chloride Flush Syringe 10 Ml) 10 ml IV BID [facility] Sodium Chloride (Sodium Chloride Flush Syringe 10 Ml) 10 ml IV PRN PRN PRN Reason: LINE FLUSH Tamsulosin HCl (Flomax) 0.4 mg PO HS [facility] Review of Systems All systems: negative Musculoskeletal: other (right leg pain. ) Exam - Vital Signs Vital signs: Vital Signs Temp Pulse Resp BP Pulse Ox 98 F 99 H 12 169/90 100 03/29/18 00:38 03/29/18 00:38 03/29/18 00:38 03/29/18 00:38 03/29/18 00:38 - General Appearance General appearance: well-developed, well-nourished, appears stated age EENT: ATNC, PERRL, mucous membranes moist Neck: Present: neck supple, trachea midline, Adenopathy Respiratory: Clear to Ascultation, Normal Exam Heart: regular, normal heart rate, S1S2, no murmurs, other (RUE AVF (+)T/B) Gastrointestinal: Present: normal, normoactive bowel sounds Integumentary: no rash, warm and dry Neurologic: no focal deficit, no asterixis Musculoskeletal: Present: other (RLE swelling, tenderness. ) Psychiatric: mood/affect appropriate, cooperative Results - Lab Results 03/29/18 00:01 03/29/18 00:01 Most recent lab results Calcium 8.3 mg/dL (8.4-10.2) L 03/29/18 00:01 Assessment and Plan - Patient Problems (1) ESRD needing dialysis Current Visit: No Status: Chronic Plan to address problem: Plan for his HD session today, per his TTS schedule Have written orders for low flow of Qb 250, Qd 500, and use of 17 G needles as he has just started with cannulating the AVF. Orders placed and dialysis unit notified. (2) Acute deep vein thrombosis (DVT) of right lower extremity Current Visit: Yes Status: Acute Plan to address problem: Administered lovenox with plan to oral anticoagulant therapy. Possible Hematology consult per primary team note. (3) Hypertension Current Visit: No Status: Chronic Qualifiers: Hypertension type: essential hypertension Qualified Code(s): I10 - Essential (primary) hypertension Plan to address problem: Agree with restarting his home regimen at this time. Will continue to monitor. (4) Diabetes mellitus with ESRD (end-stage renal disease) Current Visit: Yes Status: Acute Plan to address problem: Treatment per primary team.
[2018-03-29] MEDS: COREG PO SCH ×2 (09:54→21:29)
[2018-03-29] MEDS: SODIUM CHLORIDE FLUSH SYRINGE 10 ML IV SCH ×2 (09:54→21:30)
[2018-03-29] MEDS ORDERED: ERGOCALCIFEROL 50000 UNIT PO SCH (10:00)
--- NOTE | 2018-03-29 11:51 | Consultation ---
History of Present Illness - Reason for Consult Consult date: 03/29/18 DVT leg Requesting physician: AISHA HOOKS - History of Present Illness Thank you for this consult, patient seen, records reviewed, patient is my private patient, at the [place], sent by me for DVT management. No previous hx. He is now on LMWH, and will get his HD.Hx of prostate cancer. Please see work up orders. Eventually will remain on oral anticoag once D/Tomás back to the [place].Will also do a V/Q scan. Past History Past Medical History: diabetes, dialysis, ESRD, hypertension Past Surgical History: Other (RUE AVF creation, Left TMA ) Social history: no significant social history Family history: hypertension Medications and Allergies Allergies Allergy/AdvReac Type Severity Reaction Status Date / Time No Known Allergies Allergy Verified 01/18/18 20:10 Home Medications Medication Instructions Recorded Confirmed Last Taken Type Acetaminophen [Acetaminophen TAB] 650 mg PO Q4H PRN 03/12/18 03/29/18 Unknown History Calcium Acetate [Phoslo] 667 mg PO TID 03/12/18 03/29/18 Unknown History Carvedilol [Coreg] 6.25 mg PO BID 03/12/18 03/29/18 Unknown History Ergocalciferol 50,000 unit PO DAILY 03/12/18 03/29/18 Unknown History Flomax 0.4 mg PO HS 03/12/18 03/29/18 Unknown History Insulin Aspart [NovoLOG Flexpen] See Protocol SQ AC 03/12/18 03/29/18 Unknown History Loperamide [Imodium] 4 mg PO DAILY PRN 03/12/18 03/29/18 Unknown History Active Meds: Active Medications Acetaminophen (Tylenol) 650 mg PO Q4H PRN PRN Reason: Pain MILD(1-3)/Fever >100.5/[place] Calcium Acetate (Phoslo) 667 mg PO TID [facility] Last Admin: 03/29/18 09:00 Dose: Not Given Carvedilol (Coreg) 6.25 mg PO BID [facility] Last Admin: 03/29/18 09:54 Dose: Not Given Dextrose (D50w (25gm) Syringe) 50 ml IV PRN PRN PRN Reason: Hypoglycemia Hydralazine HCl (Apresoline) 5 mg IV Q6HR PRN PRN Reason: Hypertension Sodium Chloride (Nacl 0.9%) 100 mls @ 999 mls/hr IV ALEJO PRN PRN Reason: Hypotension Insulin Human Lispro (Humalog) 0 unit SUB-Q ACHS [facility]; Protocol Last Admin: 03/29/18 08:30 Dose: Not Given Miscellaneous Medication (Ergocalciferol) 50,000 unit PO DAILY KIRSTEN Ondansetron HCl (Zofran) 4 mg IV Q8H PRN PRN Reason: Nausea And Vomiting Oxycodone/Acetaminophen (Percocet 5/325) 1 tab PO Q6H PRN PRN Reason: Pain, Moderate (4-6) Sodium Chloride (Sodium Chloride Flush Syringe 10 Ml) 10 ml IV BID [facility] Last Admin: 03/29/18 09:54 Dose: Not Given Sodium Chloride (Sodium Chloride Flush Syringe 10 Ml) 10 ml IV PRN PRN PRN Reason: LINE FLUSH Tamsulosin HCl (Flomax) 0.4 mg PO HS [facility] Review of Systems Constitutional: chronic pain Exam - Constitutional Vitals: Temp Pulse Resp BP Pulse Ox 97.9 F 92 H 18 163/89 99 03/29/18 07:31 03/29/18 07:31 03/29/18 07:31 03/29/18 07:31 03/29/18 07:31 General appearance: Present: mild distress, well-nourished - EENT Eyes: Present: PERRL ENT: hearing intact, clear oral mucosa - Neck Neck: Present: supple, normal ROM - Respiratory Respiratory effort: normal Respiratory: bilateral: CTA - Cardiovascular Heart Sounds: Present: S1 & S2. Absent: rub, click - Extremities Extremities: pulses symmetrical, No edema Peripheral Pulses: within normal limits - Abdominal General gastrointestinal: Present: soft, non-tender, non-distended, normal bowel sounds Male genitourinary: Present: deferred - Rectal Rectal Exam: deferred - Integumentary Integumentary: Present: clear, warm, dry - Musculoskeletal Musculoskeletal: gait normal, strength equal bilaterally - Psychiatric Psychiatric: appropriate mood/affect, intact judgment & insight - Neurologic Neurologic: CNII-XII intact, moves all extremities Results - Labs CBC & Chem 7: 03/29/18 00:01 03/29/18 00:01 Labs: Abnormal lab results 08/30/18 08/30/18 08/30/18 Range/Units 00:01 00:01 00:01 Hgb 10.6 L (11.8-15.2) gm/dl Hct 33.5 L (35.5-45.6) % RDW 21.4 H (13.2-15.2) % Monocytes % (Manual) 8.0 H (0.0-7.3) % Eosinophils % (Manual) 10.0 H (0.0-4.3) % Lymphocytes # (Manual) 0.6 L (1.2-5.4) K/mm3 Eosinophils # (Manual) 0.5 H (0.0-0.4) K/mm3 APTT 39.4 H (24.2-36.6) Sec. BUN 58 H (9-20) mg/dL Creatinine 3.4 H (0.8-1.5) mg/dL Calcium 8.3 L (8.4-10.2) mg/dL Assessment and Plan - Patient Problems (1) Acute deep vein thrombosis (DVT) of right lower extremity Current Visit: Yes Status: Acute Plan to address problem: See notes. (2) Diabetes mellitus with ESRD (end-stage renal disease) Current Visit: Yes Status: Acute Plan to address problem: follow you.
[2018-03-29] MEDS ORDERED: NACL 0.9 (PRIMING MACHINE ONLY DIALYSIS) MC ONE (14:22)
[2018-03-29] MEDS ORDERED: HumaLOG SUB-Q ONE (17:40)
[2018-03-29] MEDS: FLOMAX PO SCH (21:29)
[2018-03-30 06:05] LABS: Basophils # (Auto) 0.1 K/mm3 (0.0-0.1); Basophils % (Auto) 1.2 % (0.0-1.8); Eosinophils # (Auto) 0.7 K/mm3 (0.0-0.4); Eosinophils % (Auto) 12.5 % (0.0-4.3); Hematocrit 33.9 % (35.5-45.6); Hemoglobin 10.5 gm/dl (11.8-15.2); Lymphocytes # (Auto) 1.4 K/mm3 (1.2-5.4); Lymphocytes % (Auto) 27.1 % (13.4-35.0); Mean Corpuscular HGB Conc 31 % (32-34); Mean Corpuscular Hemoglobin 27 pg (28-32); Mean Corpuscular Volume 89 fl (84-94); Monocytes # (Auto) 0.6 K/mm3 (0.0-0.8); Platelet Count 170 K/mm3 (140-440); Red Blood Count 3.83 M/mm3 (3.65-5.03)
[2018-03-30 06:06] LABS: Red Cell Distribution Width 21.2 % (13.2-15.2)
[2018-03-30 06:34] LABS: Calcium 8.2 mg/dL (8.4-10.2)
--- NOTE | 2018-03-30 06:34 | Progress Note ---
Assessment and Plan - Patient Problems (1) ESRD needing dialysis Current Visit: No Status: Chronic Plan to address problem: Tolerated HD yesterday. No acute needs for HD today. next session for tomorrow per his TTS schedule. Had written orders for low flow of Qb 250, Qd 500, and use of 17 G needles as he has just started with cannulating the AVF. (2) Acute deep vein thrombosis (DVT) of right lower extremity Current Visit: Yes Status: Acute Plan to address problem: Plan for chronic anticoagulation per hematology notes/assessment. Further management per primary team/hematology. (3) Hypertension Current Visit: No Status: Chronic Qualifiers: Hypertension type: essential hypertension Qualified Code(s): I10 - Essential (primary) hypertension Plan to address problem: Blood pressure stable on current regimen. Will continue to monitor. (4) Diabetes mellitus with ESRD (end-stage renal disease) Current Visit: Yes Status: Acute Plan to address problem: Treatment per primary team. Subjective Date of service: 03/30/18 Interval history: No acute issues overnight. Tolerated HD yesterday with removal of 2L UF. Labs noted. patient evaluated by hematology in regards to acute DVT and plan for chronic anticoagulation. Objective - Vital Signs Vital signs: Vital Signs - 12hr 03/29/18 03/29/18 03/29/18 20:00 22:00 23:29 Temperature 98.1 F 98.4 F Pulse Rate 103 H 98 H 100 H Respiratory 18 18 Rate Blood Pressure 142/74 Blood Pressure 142/72 [Left] O2 Sat by Pulse 98 97 Oximetry 03/30/18 03/30/18 04:29 06:00 Temperature 98.5 F Pulse Rate 98 H 101 H Respiratory 18 Rate Blood Pressure 142/79 Blood Pressure [Left] O2 Sat by Pulse 95 Oximetry - General Appearance General appearance: well-nourished, appears stated age EENT: ATNC, PERRL Neck: no JVD, no thyromegaly, supple Respiratory: Present: Clear to Ascultation, Normal Exam Cardiology: regular, S1S2 Gastrointestinal: normal, normoactive bowel sounds Integumentary: no rash Neurologic: no focal deficit, no asterixis Musculoskeletal: other (Left TMA, Right LE edema) Psychiatric: mood/affect appropriate, cooperative - Lab 03/30/18 04:39 03/29/18 00:01 Most recent lab results Calcium 8.3 mg/dL (8.4-10.2) L 03/29/18 00:01 - Allied health notes Allied health notes reviewed: nursing
[2018-03-30] MEDS: PHOSLO PO SCH ×3 (08:00→16:35)
--- NOTE | 2018-03-30 08:01 | Nuclear Medicine Report ---
LUNG SCAN, VENTILATION AND PERFUSION: Examination performed with 5 mCi technetium 99m -MAA History: Evaluate for PE. Findings: Inhalation of Xenon gas demonstrates a normal distribution of the activity throughout both lungs. The wash out phases show no focal retention of activity. After injection of Technetium 99m macroaggregated albumin gamma camera imaging of the lungs in multiple projections demonstrates normal pulmonary contours with a homogeneous distribution of activity. No focal areas of perfusion deficiency are identified. IMPRESSION: Normal study.
--- NOTE | 2018-03-30 08:13 | XRay Report ---
Single view chest: History: For lung scan/shortness of breath. Findings: Normal cardiomediastinal silhouette the trachea is midline. No consolidation, pneumothorax or pleural effusion. Stable large bore right venous catheter. Impression: No acute cardiopulmonary findings.
[2018-03-30] MEDS ORDERED: VITAMIN D2 PO SCH (10:00)
[2018-03-30] MEDS: HumaLOG SUB-Q SCH ×4 (11:30→22:56)
[2018-03-30] MEDS: COREG PO SCH ×2 (11:36→22:55)
[2018-03-30] MEDS: SODIUM CHLORIDE FLUSH SYRINGE 10 ML IV SCH ×2 (11:37→22:56)
[2018-03-30] MEDS ORDERED: LOVENOX SUB-Q SCH (12:00)
--- NOTE | 2018-03-30 12:05 | Progress Note ---
Assessment and Plan Assessment and plan: --Acute right lower extremity DVT; Continue Lovenox renal dose, VQ scan negative for PE Hematology evaluation noted and appreciated. Transition to oral anticoagulants tomorrow --End-stage renal disease on hemodialysis;HD per schedule, nephrology following --Hypertension; moderate control Continue current antihypertensives and when necessary medications --Type 2 diabetes mellitus; Accu-Chek sliding scale coverage and ADA diet Insulin if needed, check A1c --DVT prophylaxis; on Lovenox --Full CODE STATUS Condition stable to be transferred out of telemetry Out of bed to chair, ambulate as tolerated Possible discharge in 1-2 days stable History Interval history: Patient seen and examined medical records reviewed Patient feels better no new complaints Vital signs reviewed Alert, wake oriented 3 not in acute distress Hospitalist Physical - Constitutional Vitals: Temp Pulse Resp BP Pulse Ox 98.5 F 100 H 18 140/80 97 03/30/18 04:29 03/30/18 11:36 03/30/18 04:29 03/30/18 11:36 03/30/18 10:00 General appearance: Present: no acute distress, well-nourished - EENT Eyes: Present: PERRL, EOM intact - Neck Neck: Present: supple, normal ROM - Respiratory Respiratory effort: normal Respiratory: bilateral: diminished, negative: rales, rhonchi, wheezing - Cardiovascular Rhythm: regular Heart Sounds: Present: S1 & S2 - Extremities Extremities: no ischemia, No edema, abnormal (right lower extremity DVT) - Abdominal General gastrointestinal: soft, non-tender, non-distended, normal bowel sounds - Integumentary Integumentary: Present: clear, warm - Psychiatric Psychiatric: appropriate mood/affect, cooperative - Neurologic Neurologic: CNII-XII intact, moves all extremities Results - Labs CBC & Chem 7: 03/30/18 04:39 03/30/18 04:39 Labs: Laboratory Last Values WBC 5.3 K/mm3 (4.5-11.0) 03/30/18 04:39 RBC 3.83 M/mm3 (3.65-5.03) 03/30/18 04:39 Hgb 10.5 gm/dl (11.8-15.2) L 03/30/18 04:39 Hct 33.9 % (35.5-45.6) L 03/30/18 04:39 MCV 89 fl (84-94) 03/30/18 04:39 MCH 27 pg (28-32) L 03/30/18 04:39 MCHC 31 % (32-34) L 03/30/18 04:39 RDW 21.2 % (13.2-15.2) H 03/30/18 04:39 Plt Count 170 K/mm3 (140-440) 03/30/18 04:39 Lymph % (Auto) 27.1 % (13.4-35.0) 03/30/18 04:39 [place] % (Auto) 12.0 % (0.0-7.3) H 03/30/18 04:39 Eos % (Auto) 12.5 % (0.0-4.3) H 03/30/18 04:39 Baso % (Auto) 1.2 % (0.0-1.8) 03/30/18 04:39 Lymph # 1.4 K/mm3 (1.2-5.4) 03/30/18 04:39 [place] # 0.6 K/mm3 (0.0-0.8) 03/30/18 04:39 Eos # 0.7 K/mm3 (0.0-0.4) H 03/30/18 04:39 Baso # 0.1 K/mm3 (0.0-0.1) 03/30/18 04:39 Add Manual Diff Complete 03/29/18 00:01 Total Counted 100 03/29/18 00:01 Seg Neutrophils % 47.2 % (40.0-70.0) 03/30/18 04:39 Seg Neuts % (Manual) 66.0 % (40.0-70.0) 03/29/18 00:01 Band Neutrophils % 0 % 03/29/18 00:01 Lymphocytes % (Manual) 14.0 % (13.4-35.0) 03/29/18 00:01 Reactive Lymphs % (Man) 1.0 % 03/29/18 00:01 Monocytes % (Manual) 8.0 % (0.0-7.3) H 03/29/18 00:01 Eosinophils % (Manual) 10.0 % (0.0-4.3) H 03/29/18 00:01 Basophils % (Manual) 1.0 % (0.0-1.8) 03/29/18 00:01 Metamyelocytes % 0 % 03/29/18 00:01 Myelocytes % 0 % 03/29/18 00:01 Promyelocytes % 0 % 03/29/18 00:01 Blast Cells % 0 % 03/29/18 00:01 Nucleated RBC % Not Reportable 03/29/18 00:01 Seg Neutrophils # 2.5 K/mm3 (1.8-7.7) 03/30/18 04:39 Seg Neutrophils # Man 3.0 K/mm3 (1.8-7.7) 03/29/18 00:01 Band Neutrophils # 0.0 K/mm3 03/29/18 00:01 Lymphocytes # (Manual) 0.6 K/mm3 (1.2-5.4) L 03/29/18 00:01 Abs React Lymphs (Man) 0.0 K/mm3 03/29/18 00:01 Monocytes # (Manual) 0.4 K/mm3 (0.0-0.8) 03/29/18 00:01 Eosinophils # (Manual) 0.5 K/mm3 (0.0-0.4) H 03/29/18 00:01 Basophils # (Manual) 0.0 K/mm3 (0.0-0.1) 03/29/18 00:01 Metamyelocytes # 0.0 K/mm3 03/29/18 00:01 Myelocytes # 0.0 K/mm3 03/29/18 00:01 Promyelocytes # 0.0 K/mm3 03/29/18 00:01 Blast Cells # 0.0 K/mm3 03/29/18 00:01 WBC Morphology Not Reportable 03/29/18 00:01 Hypersegmented Neuts Not Reportable 03/29/18 00:01 Hyposegmented Neuts Not Reportable 03/29/18 00:01 Hypogranular Neuts Not Reportable 03/29/18 00:01 Smudge Cells Not Reportable 03/29/18 00:01 Toxic Granulation Not Reportable 03/29/18 00:01 Toxic Vacuolation Not Reportable 03/29/18 00:01 Dohle Bodies Not Reportable 03/29/18 00:01 Pelger-Huet Anomaly Not Reportable 03/29/18 00:01 Kalee Rods Not Reportable 08/30/18 00:01 Platelet Estimate Consistent w auto 03/29/18 00:01 Clumped Platelets Not Reportable 03/29/18 00:01 Plt Clumps, EDTA Not Reportable 03/29/18 00:01 Large Platelets Not Reportable 03/29/18 00:01 Giant Platelets Not Reportable 03/29/18 00:01 Platelet Satelliting Not Reportable 03/29/18 00:01 Plt Morphology Comment Not Reportable 03/29/18 00:01 RBC Morphology Not Reportable 03/29/18 00:01 Dimorphic RBCs Not Reportable 03/29/18 00:01 Polychromasia Not Reportable 03/29/18 00:01 Hypochromasia 1+ 03/29/18 00:01 Poikilocytosis Not Reportable 03/29/18 00:01 Anisocytosis 1+ 03/29/18 00:01 Microcytosis Not Reportable 03/29/18 00:01 Macrocytosis Not Reportable 03/29/18 00:01 Spherocytes Not Reportable 03/29/18 00:01 Pappenheimer Bodies Not Reportable 03/29/18 00:01 Sickle Cells Not Reportable 03/29/18 00:01 Target Cells Not Reportable 03/29/18 00:01 Tear Drop Cells Not Reportable 03/29/18 00:01 Ovalocytes Not Reportable 03/29/18 00:01 Helmet Cells Not Reportable 03/29/18 00:01 [place] Bodies Not Reportable 03/29/18 00:01 [place] Rings Not Reportable 03/29/18 00:01 [place] Cells Not Reportable 03/29/18 00:01 Bite Cells Not Reportable 03/29/18 00:01 Crenated Cell Not Reportable 03/29/18 00:01 Elliptocytes Not Reportable 03/29/18 00:01 Acanthocytes (Spur) Not Reportable 03/29/18 00:01 Rouleaux Not Reportable 03/29/18 00:01 Hemoglobin C Crystals Not Reportable 03/29/18 00:01 Schistocytes Not Reportable 03/29/18 00:01 Malaria parasites Not Reportable 03/29/18 00:01 Andi Bodies Not Reportable 03/29/18 00:01 Hem Pathologist Commnt No 03/29/18 00:01 PT 14.4 Sec. (12.2-14.9) 03/29/18 00:01 INR 1.07 (0.87-1.13) 03/29/18 00:01 APTT 39.4 Sec. (24.2-36.6) H 03/29/18 00:01 Sodium 139 mmol/L (137-145) 03/30/18 04:39 Potassium 4.2 mmol/L (3.6-5.0) 03/30/18 04:39 Chloride 100.3 mmol/L (98-107) 03/30/18 04:39 Carbon Dioxide 24 mmol/L (22-30) 03/30/18 04:39 Anion Gap 19 mmol/L 03/30/18 04:39 BUN 43 mg/dL (9-20) H 03/30/18 04:39 Creatinine 3.4 mg/dL (0.8-1.5) H 03/30/18 04:39 Estimated GFR 22 ml/min 03/30/18 04:39 BUN/Creatinine Ratio 13 % 03/30/18 04:39 Glucose 100 mg/dL (75-100) 03/30/18 04:39 POC Glucose 92 (70-105) 03/30/18 11:49 Calcium 8.2 mg/dL (8.4-10.2) L 03/30/18 04:39 Lactate Dehydrogenase 240 units/L (91-180) H 03/29/18 11:56
[2018-03-30] MEDS: FLOMAX PO SCH (22:55)
[2018-03-31] MEDS: HumaLOG SUB-Q SCH ×4 (07:30→22:01)
--- NOTE | 2018-03-31 08:19 | Progress Note ---
Assessment and Plan Assessment and plan: --Acute right lower extremity DVT; Continue Lovenox renal dose, VQ scan negative for PE Hematology following Transition to oral anticoagulants Eliquis --End-stage renal disease on hemodialysis;HD per schedule, nephrology following --Hypertension; moderate control Continue current antihypertensives and when necessary medications --Type 2 diabetes mellitus; Accu-Chek sliding scale coverage and ADA diet Insulin if needed, check A1c --DVT prophylaxis; on Lovenox --Full CODE STATUS Condition stable to be transferred out of telemetry Out of bed to chair, ambulate as tolerated Possible discharge tomorrow if stable History Interval history: Recent seen and evaluated medical records reviewed Patient feels better no new complaints Lovenox transition to Eliquis per protocol Alert awake oriented 3 Vital signs reviewed Hospitalist Physical - Constitutional Vitals: Temp Pulse Resp BP Pulse Ox 98.8 F 94 H 18 132/76 96 03/31/18 03:11 03/31/18 03:11 03/31/18 03:11 03/31/18 03:11 03/31/18 06:00 General appearance: Present: no acute distress, well-nourished - EENT Eyes: Present: PERRL, EOM intact - Neck Neck: Present: supple, normal ROM - Respiratory Respiratory effort: normal Respiratory: bilateral: diminished, negative: rales, rhonchi, wheezing - Cardiovascular Rhythm: regular Heart Sounds: Present: S1 & S2 - Extremities Extremities: no ischemia, No edema - Abdominal General gastrointestinal: soft, non-tender, non-distended, normal bowel sounds - Integumentary Integumentary: Present: clear - Psychiatric Psychiatric: appropriate mood/affect, cooperative - Neurologic Neurologic: CNII-XII intact, moves all extremities Results - Labs CBC & Chem 7: 03/30/18 04:39 03/30/18 04:39 Labs: Laboratory Last Values WBC 5.3 K/mm3 (4.5-11.0) 03/30/18 04:39 RBC 3.83 M/mm3 (3.65-5.03) 03/30/18 04:39 Hgb 10.5 gm/dl (11.8-15.2) L 03/30/18 04:39 Hct 33.9 % (35.5-45.6) L 03/30/18 04:39 MCV 89 fl (84-94) 03/30/18 04:39 MCH 27 pg (28-32) L 03/30/18 04:39 MCHC 31 % (32-34) L 03/30/18 04:39 RDW 21.2 % (13.2-15.2) H 03/30/18 04:39 Plt Count 170 K/mm3 (140-440) 03/30/18 04:39 Lymph % (Auto) 27.1 % (13.4-35.0) 03/30/18 04:39 [place] % (Auto) 12.0 % (0.0-7.3) H 03/30/18 04:39 Eos % (Auto) 12.5 % (0.0-4.3) H 03/30/18 04:39 Baso % (Auto) 1.2 % (0.0-1.8) 03/30/18 04:39 Lymph # 1.4 K/mm3 (1.2-5.4) 03/30/18 04:39 [place] # 0.6 K/mm3 (0.0-0.8) 03/30/18 04:39 Eos # 0.7 K/mm3 (0.0-0.4) H 03/30/18 04:39 Baso # 0.1 K/mm3 (0.0-0.1) 03/30/18 04:39 Add Manual Diff Complete 03/29/18 00:01 Total Counted 100 03/29/18 00:01 Seg Neutrophils % 47.2 % (40.0-70.0) 03/30/18 04:39 Seg Neuts % (Manual) 66.0 % (40.0-70.0) 03/29/18 00:01 Band Neutrophils % 0 % 03/29/18 00:01 Lymphocytes % (Manual) 14.0 % (13.4-35.0) 03/29/18 00:01 Reactive Lymphs % (Man) 1.0 % 03/29/18 00:01 Monocytes % (Manual) 8.0 % (0.0-7.3) H 03/29/18 00:01 Eosinophils % (Manual) 10.0 % (0.0-4.3) H 03/29/18 00:01 Basophils % (Manual) 1.0 % (0.0-1.8) 03/29/18 00:01 Metamyelocytes % 0 % 03/29/18 00:01 Myelocytes % 0 % 03/29/18 00:01 Promyelocytes % 0 % 03/29/18 00:01 Blast Cells % 0 % 03/29/18 00:01 Nucleated RBC % Not Reportable 03/29/18 00:01 Seg Neutrophils # 2.5 K/mm3 (1.8-7.7) 03/30/18 04:39 Seg Neutrophils # Man 3.0 K/mm3 (1.8-7.7) 03/29/18 00:01 Band Neutrophils # 0.0 K/mm3 03/29/18 00:01 Lymphocytes # (Manual) 0.6 K/mm3 (1.2-5.4) L 03/29/18 00:01 Abs React Lymphs (Man) 0.0 K/mm3 03/29/18 00:01 Monocytes # (Manual) 0.4 K/mm3 (0.0-0.8) 03/29/18 00:01 Eosinophils # (Manual) 0.5 K/mm3 (0.0-0.4) H 03/29/18 00:01 Basophils # (Manual) 0.0 K/mm3 (0.0-0.1) 03/29/18 00:01 Metamyelocytes # 0.0 K/mm3 03/29/18 00:01 Myelocytes # 0.0 K/mm3 03/29/18 00:01 Promyelocytes # 0.0 K/mm3 03/29/18 00:01 Blast Cells # 0.0 K/mm3 03/29/18 00:01 WBC Morphology Not Reportable 03/29/18 00:01 Hypersegmented Neuts Not Reportable 03/29/18 00:01 Hyposegmented Neuts Not Reportable 03/29/18 00:01 Hypogranular Neuts Not Reportable 03/29/18 00:01 Smudge Cells Not Reportable 03/29/18 00:01 Toxic Granulation Not Reportable 03/29/18 00:01 Toxic Vacuolation Not Reportable 03/29/18 00:01 Dohle Bodies Not Reportable 03/29/18 00:01 Pelger-Huet Anomaly Not Reportable 03/29/18 00:01 Kalee Rods Not Reportable 03/29/18 00:01 Platelet Estimate Consistent w auto 03/29/18 00:01 Clumped Platelets Not Reportable 03/29/18 00:01 Plt Clumps, EDTA Not Reportable 03/29/18 00:01 Large Platelets Not Reportable 03/29/18 00:01 Giant Platelets Not Reportable 03/29/18 00:01 Platelet Satelliting Not Reportable 03/29/18 00:01 Plt Morphology Comment Not Reportable 03/29/18 00:01 RBC Morphology Not Reportable 03/29/18 00:01 Dimorphic RBCs Not Reportable 03/29/18 00:01 Polychromasia Not Reportable 03/29/18 00:01 Hypochromasia 1+ 03/29/18 00:01 Poikilocytosis Not Reportable 03/29/18 00:01 Anisocytosis 1+ 03/29/18 00:01 Microcytosis Not Reportable 03/29/18 00:01 Macrocytosis Not Reportable 03/29/18 00:01 Spherocytes Not Reportable 03/29/18 00:01 Pappenheimer Bodies Not Reportable 03/29/18 00:01 Sickle Cells Not Reportable 03/29/18 00:01 Target Cells Not Reportable 03/29/18 00:01 Tear Drop Cells Not Reportable 03/29/18 00:01 Ovalocytes Not Reportable 03/29/18 00:01 Helmet Cells Not Reportable 03/29/18 00:01 Conteh-[place] Bodies Not Reportable 03/29/18 00:01 [place] Rings Not Reportable 03/29/18 00:01 [place] Cells Not Reportable 03/29/18 00:01 Bite Cells Not Reportable 03/29/18 00:01 Crenated Cell Not Reportable 03/29/18 00:01 Elliptocytes Not Reportable 03/29/18 00:01 Acanthocytes (Spur) Not Reportable 03/29/18 00:01 Rouleaux Not Reportable 03/29/18 00:01 Hemoglobin C Crystals Not Reportable 03/29/18 00:01 Schistocytes Not Reportable 03/29/18 00:01 Malaria parasites Not Reportable 03/29/18 00:01 Andi Bodies Not Reportable 03/29/18 00:01 Hem Pathologist Commnt No 03/29/18 00:01 PT 14.4 Sec. (12.2-14.9) 03/29/18 00:01 INR 1.07 (0.87-1.13) 03/29/18 00:01 APTT 39.4 Sec. (24.2-36.6) H 03/29/18 00:01 Sodium 139 mmol/L (137-145) 03/30/18 04:39 Potassium 4.2 mmol/L (3.6-5.0) 03/30/18 04:39 Chloride 100.3 mmol/L (98-107) 03/30/18 04:39 Carbon Dioxide 24 mmol/L (22-30) 03/30/18 04:39 Anion Gap 19 mmol/L 03/30/18 04:39 BUN 43 mg/dL (9-20) H 03/30/18 04:39 Creatinine 3.4 mg/dL (0.8-1.5) H 03/30/18 04:39 Estimated GFR 22 ml/min 03/30/18 04:39 BUN/Creatinine Ratio 13 % 03/30/18 04:39 Glucose 100 mg/dL (75-100) 03/30/18 04:39 POC Glucose 99 (70-105) 03/30/18 21:09 Calcium 8.2 mg/dL (8.4-10.2) L 03/30/18 04:39 Lactate Dehydrogenase 240 units/L (91-180) H 03/29/18 11:56
[2018-03-31] MEDS: COREG PO SCH ×2 (10:00→22:00)
[2018-03-31] MEDS: PHOSLO PO SCH ×3 (10:00→17:34)
[2018-03-31] MEDS: SODIUM CHLORIDE FLUSH SYRINGE 10 ML IV SCH ×2 (10:00→22:01)
[2018-03-31] MEDS ORDERED: ELIQUIS PO SCH (10:00)
--- NOTE | 2018-03-31 10:13 | Progress Note ---
Assessment and Plan - Patient Problems (1) ESRD needing dialysis Current Visit: No Status: Chronic Plan to address problem: Plan for HD today per his TTS schedule. (2) Acute deep vein thrombosis (DVT) of right lower extremity Current Visit: Yes Status: Acute Plan to address problem: Plan for chronic anticoagulation per hematology notes/assessment.To start on eliquis 5mg BID (3) Hypertension Current Visit: No Status: Chronic Qualifiers: Hypertension type: essential hypertension Qualified Code(s): I10 - Essential (primary) hypertension Plan to address problem: Blood pressure stable on current regimen. Will continue to monitor. (4) Diabetes mellitus with ESRD (end-stage renal disease) Current Visit: Yes Status: Acute Plan to address problem: Treatment per primary team. Subjective Date of service: 03/31/18 Interval history: NO acute issues overnight. Started on eliquis 5mg BID. Plan for HD today per his TTS schedule. Objective - Vital Signs Vital signs: Vital Signs - 12hr 03/30/18 03/31/18 03/31/18 22:55 03:11 06:00 Temperature 98.8 F Pulse Rate 94 H 94 H Respiratory 18 Rate Blood Pressure 133/71 132/76 O2 Sat by Pulse 100 96 Oximetry 03/31/18 03/31/18 07:39 07:42 Temperature 98.5 F 98.6 F Pulse Rate 93 H 84 Respiratory 18 18 Rate Blood Pressure 139/77 112/54 O2 Sat by Pulse 98 98 Oximetry - General Appearance General appearance: well-developed, appears stated age EENT: ATNC, PERRL Neck: no JVD, supple Respiratory: Present: Clear to Ascultation, Normal Exam Cardiology: regular, S1S2 Gastrointestinal: normal, normoactive bowel sounds Integumentary: no rash, warm and dry Neurologic: no focal deficit, no asterixis Musculoskeletal: other ((-) edema) Psychiatric: mood/affect appropriate, cooperative - Lab 03/30/18 04:39 03/30/18 04:39 Most recent lab results Calcium 8.2 mg/dL (8.4-10.2) L 03/30/18 04:39 - Allied health notes Allied health notes reviewed: nursing
[2018-03-31] MEDS ORDERED: NACL 0.9 (PRIMING MACHINE ONLY DIALYSIS) MC ONE (13:11)
[2018-03-31] MEDS: ELIQUIS PO SCH ×2 (17:19→22:00)
[2018-03-31] MEDS: FLOMAX PO SCH (22:00)
[2018-04-01] MEDS: HumaLOG SUB-Q SCH ×2 (08:13→11:59)
[2018-04-01] MEDS: PHOSLO PO SCH (08:15)
[2018-04-01 08:20] LABS: Calcium 8.1 mg/dL (8.4-10.2)
--- NOTE | 2018-04-01 08:29 | Progress Note ---
Hospitalist Physical - Constitutional Vitals: Temp Pulse Resp BP Pulse Ox 99.0 F 92 H 18 127/69 100 04/01/18 07:11 04/01/18 07:11 04/01/18 07:11 04/01/18 07:11 04/01/18 07:11 General appearance: Present: no acute distress, well-nourished Results - Labs CBC & Chem 7: 03/30/18 04:39 04/01/18 08:00 Labs: Laboratory Last Values WBC 5.3 K/mm3 (4.5-11.0) 03/30/18 04:39 RBC 3.83 M/mm3 (3.65-5.03) 03/30/18 04:39 Hgb 10.5 gm/dl (11.8-15.2) L 03/30/18 04:39 Hct 33.9 % (35.5-45.6) L 03/30/18 04:39 MCV 89 fl (84-94) 03/30/18 04:39 MCH 27 pg (28-32) L 03/30/18 04:39 MCHC 31 % (32-34) L 03/30/18 04:39 RDW 21.2 % (13.2-15.2) H 03/30/18 04:39 Plt Count 170 K/mm3 (140-440) 03/30/18 04:39 Lymph % (Auto) 27.1 % (13.4-35.0) 03/30/18 04:39 Maries % (Auto) 12.0 % (0.0-7.3) H 03/30/18 04:39 Eos % (Auto) 12.5 % (0.0-4.3) H 03/30/18 04:39 Baso % (Auto) 1.2 % (0.0-1.8) 03/30/18 04:39 Lymph # 1.4 K/mm3 (1.2-5.4) 03/30/18 04:39 Maries # 0.6 K/mm3 (0.0-0.8) 03/30/18 04:39 Eos # 0.7 K/mm3 (0.0-0.4) H 03/30/18 04:39 Baso # 0.1 K/mm3 (0.0-0.1) 03/30/18 04:39 Add Manual Diff Complete 03/29/18 00:01 Total Counted 100 03/29/18 00:01 Seg Neutrophils % 47.2 % (40.0-70.0) 03/30/18 04:39 Seg Neuts % (Manual) 66.0 % (40.0-70.0) 03/29/18 00:01 Band Neutrophils % 0 % 03/29/18 00:01 Lymphocytes % (Manual) 14.0 % (13.4-35.0) 03/29/18 00:01 Reactive Lymphs % (Man) 1.0 % 03/29/18 00:01 Monocytes % (Manual) 8.0 % (0.0-7.3) H 03/29/18 00:01 Eosinophils % (Manual) 10.0 % (0.0-4.3) H 03/29/18 00:01 Basophils % (Manual) 1.0 % (0.0-1.8) 03/29/18 00:01 Metamyelocytes % 0 % 03/29/18 00:01 Myelocytes % 0 % 03/29/18 00:01 Promyelocytes % 0 % 03/29/18 00:01 Blast Cells % 0 % 03/29/18 00:01 Nucleated RBC % Not Reportable 03/29/18 00:01 Seg Neutrophils # 2.5 K/mm3 (1.8-7.7) 03/30/18 04:39 Seg Neutrophils # Man 3.0 K/mm3 (1.8-7.7) 03/29/18 00:01 Band Neutrophils # 0.0 K/mm3 03/29/18 00:01 Lymphocytes # (Manual) 0.6 K/mm3 (1.2-5.4) L 03/29/18 00:01 Abs React Lymphs (Man) 0.0 K/mm3 03/29/18 00:01 Monocytes # (Manual) 0.4 K/mm3 (0.0-0.8) 03/29/18 00:01 Eosinophils # (Manual) 0.5 K/mm3 (0.0-0.4) H 03/29/18 00:01 Basophils # (Manual) 0.0 K/mm3 (0.0-0.1) 03/29/18 00:01 Metamyelocytes # 0.0 K/mm3 03/29/18 00:01 Myelocytes # 0.0 K/mm3 03/29/18 00:01 Promyelocytes # 0.0 K/mm3 03/29/18 00:01 Blast Cells # 0.0 K/mm3 03/29/18 00:01 WBC Morphology Not Reportable 03/29/18 00:01 Hypersegmented Neuts Not Reportable 03/29/18 00:01 Hyposegmented Neuts Not Reportable 03/29/18 00:01 Hypogranular Neuts Not Reportable 03/29/18 00:01 Smudge Cells Not Reportable 03/29/18 00:01 Toxic Granulation Not Reportable 03/29/18 00:01 Toxic Vacuolation Not Reportable 03/29/18 00:01 Dohle Bodies Not Reportable 03/29/18 00:01 Pelger-Huet Anomaly Not Reportable 03/29/18 00:01 Kalee Rods Not Reportable 03/29/18 00:01 Platelet Estimate Consistent w auto 03/29/18 00:01 Clumped Platelets Not Reportable 03/29/18 00:01 Plt Clumps, EDTA Not Reportable 03/29/18 00:01 Large Platelets Not Reportable 03/29/18 00:01 Giant Platelets Not Reportable 03/29/18 00:01 Platelet Satelliting Not Reportable 03/29/18 00:01 Plt Morphology Comment Not Reportable 03/29/18 00:01 RBC Morphology Not Reportable 03/29/18 00:01 Dimorphic RBCs Not Reportable 03/29/18 00:01 Polychromasia Not Reportable 03/29/18 00:01 Hypochromasia 1+ 03/29/18 00:01 Poikilocytosis Not Reportable 03/29/18 00:01 Anisocytosis 1+ 03/29/18 00:01 Microcytosis Not Reportable 03/29/18 00:01 Macrocytosis Not Reportable 03/29/18 00:01 Spherocytes Not Reportable 03/29/18 00:01 Pappenheimer Bodies Not Reportable 03/29/18 00:01 Sickle Cells Not Reportable 03/29/18 00:01 Target Cells Not Reportable 03/29/18 00:01 Tear Drop Cells Not Reportable 03/29/18 00:01 Ovalocytes Not Reportable 03/29/18 00:01 Helmet Cells Not Reportable 03/29/18 00:01 Conteh-Kalifornsky Bodies Not Reportable 03/29/18 00:01 Gerlach Rings Not Reportable 03/29/18 00:01 Mary Cells Not Reportable 03/29/18 00:01 Bite Cells Not Reportable 03/29/18 00:01 Crenated Cell Not Reportable 03/29/18 00:01 Elliptocytes Not Reportable 03/29/18 00:01 Acanthocytes (Spur) Not Reportable 03/29/18 00:01 Rouleaux Not Reportable 03/29/18 00:01 Hemoglobin C Crystals Not Reportable 03/29/18 00:01 Schistocytes Not Reportable 03/29/18 00:01 Malaria parasites Not Reportable 03/29/18 00:01 Andi Bodies Not Reportable 03/29/18 00:01 Hem Pathologist Commnt No 03/29/18 00:01 PT 14.4 Sec. (12.2-14.9) 03/29/18 00:01 INR 1.07 (0.87-1.13) 03/29/18 00:01 APTT 39.4 Sec. (24.2-36.6) H 03/29/18 00:01 APC Resistance 4.6 ratio (>=2.1) 03/29/18 12:50 Antithrombin III Ag 65 % (80-120) L 03/29/18 12:50 Sodium 135 mmol/L (137-145) L 04/01/18 08:00 Potassium 4.0 mmol/L (3.6-5.0) 04/01/18 08:00 Chloride 98.6 mmol/L (98-107) 04/01/18 08:00 Carbon Dioxide 25 mmol/L (22-30) 04/01/18 08:00 Anion Gap 15 mmol/L 04/01/18 08:00 BUN 29 mg/dL (9-20) H 04/01/18 08:00 Creatinine 3.1 mg/dL (0.8-1.5) H 04/01/18 08:00 Estimated GFR 24 ml/min 04/01/18 08:00 BUN/Creatinine Ratio 9 % 04/01/18 08:00 Glucose 150 mg/dL (75-100) H 04/01/18 08:00 POC Glucose 156 (70-105) H 04/01/18 07:31 Calcium 8.1 mg/dL (8.4-10.2) L 04/01/18 08:00 Lactate Dehydrogenase 240 units/L (91-180) H 03/29/18 11:56
[2018-04-01 08:30] LABS: Hematocrit 36.2 % (35.5-45.6); Hemoglobin 11.3 gm/dl (11.8-15.2); Mean Corpuscular HGB Conc 31 % (32-34); Mean Corpuscular Hemoglobin 28 pg (28-32); Mean Corpuscular Volume 89 fl (84-94); Platelet Count 145 K/mm3 (140-440); Red Blood Count 4.07 M/mm3 (3.65-5.03)
[2018-04-01 08:34] LABS: Red Cell Distribution Width 21.5 % (13.2-15.2)
--- NOTE | 2018-04-01 08:37 | Discharge Summary ---
Providers - Providers Date of Admission: 03/29/18 03:38 Date of discharge: 04/01/18 Attending physician: AISHA HOOKS 03/29/18 02:23 Consult to Physician [CONS] Routine Comment: Consulting Provider: FITZ ALCARAZ Physician Instructions: Reason For Exam: hd 03/29/18 08:04 Consult to Physician [CONS] Routine Comment: Consulting Provider: KATTY SLATER Physician Instructions: Reason For Exam: Acute Rt LE DVT Primary care physician: PLUMBING DESIGNER Hospitalization Condition: Fair Disposition: DC-01 TO HOME OR SELFCARE Time spent for discharge: 32 min Core Measure Documentation - Palliative Care Palliative Care/ Comfort Measures: Not Applicable - Core Measures Any of the following diagnoses?: DVT/PE - VTE Discharge Requirements Deep Vein Thrombosis/Pulmonary Embolism Present on Admission: Yes Has pt received <5 days of overlap therapy or INR<2.0: Yes (on Eliquis) Anticoagulant overlap therapy prescribed at discharge: No Contraindication No Overlap Therapy order at DC: Not Indicated (on Eliquis) Exam - Constitutional Vitals: Temp Pulse Resp BP Pulse Ox 99.0 F 92 H 18 127/69 100 04/01/18 07:11 04/01/18 07:11 04/01/18 07:11 04/01/18 07:11 04/01/18 07:11 Plan Follow up with: PRIMARY CAREMD [Primary Care Provider] - 3-5 Days
--- NOTE | 2018-04-01 08:42 | Discharge Summary ---
Providers - Providers Date of Admission: 03/29/18 03:38 Date of discharge: 04/01/18 Attending physician: AISHA HOOKS 03/29/18 02:23 Consult to Physician [CONS] Routine Comment: Consulting Provider: FITZ ALCARAZ Physician Instructions: Reason For Exam: hd 03/29/18 08:04 Consult to Physician [CONS] Routine Comment: Consulting Provider: KATTY SLATER Physician Instructions: Reason For Exam: Acute Rt LE DVT Primary care physician: PROGRAM DIRECTOR GROUP WORK Hospitalization Reason for admission: lower extremity swelling/right lower extremity DVT Condition: Fair Pertinent studies: VQ scan; normal study Lower extremity venous Doppler[ longterm] right lower extremity DVT Chest x-ray; no acute cardiopulmonary abnormality noted Hospital course: Very pleasant 72-year-old male patient in longterm resident with significant history of hypertension diabetes mellitus end-stage renal disease on hemodialysis, Was evaluated by lower extremity swelling at the longterm, Doppler was positive for right lower extremity DVT Patient was sent to the emergency room and subsequently admitted to the hospital , started on full dose Lovenox, VQ scan negative for PE, patient was evaluated by hematology, anticoagulation transition to oral Eliquis Patient was also seen by chin strap maker; received hemodialysis per schedule Today's comfortable no new complaints, Vital signs stable Physical examination prior to discharge is unremarkable Patient is stable at discharge Discharge diagnosis; --Acute right lower extremity DVT; discharged on Eliquis --End-stage renal disease on hemodialysis;HD per schedule, --Hypertension; moderate control --Type 2 diabetes mellitus; Disposition: DC/[place]-03 [facility] Time spent for discharge: 32 min Core Measure Documentation - Palliative Care Palliative Care/ Comfort Measures: Not Applicable - Core Measures Any of the following diagnoses?: DVT/PE - VTE Discharge Requirements Deep Vein Thrombosis/Pulmonary Embolism Present on Admission: Yes Has pt received <5 days of overlap therapy or INR<2.0: No (on Eliquis) Anticoagulant overlap therapy prescribed at discharge: No Contraindication No Overlap Therapy order at DC: Not Indicated (on Eliquis) Exam - Constitutional Vitals: Temp Pulse Resp BP Pulse Ox 99.0 F 92 H 18 127/69 100 04/01/18 07:11 04/01/18 07:11 04/01/18 07:11 04/01/18 07:11 04/01/18 07:11 General appearance: Present: no acute distress, well-nourished - EENT Eyes: Present: PERRL, EOM intact - Neck Neck: Present: supple, normal ROM - Respiratory Respiratory effort: normal Respiratory: negative: rales, rhonchi, wheezing - Cardiovascular Rhythm: regular Heart Sounds: Present: S1 & S2 - Extremities Extremities: no ischemia, No edema - Abdominal General gastrointestinal: Present: soft, non-tender, non-distended, normal bowel sounds - Integumentary Integumentary: Present: clear, warm - Musculoskeletal Musculoskeletal: strength equal bilaterally - Psychiatric Psychiatric: appropriate mood/affect, cooperative - Neurologic Neurologic: CNII-XII intact, moves all extremities Plan Activity: advance as tolerated, fall precautions Diet: renal Additional Instructions: Follow Renal /hemodialysis per schedule. If you notice any bleeding stop Eliquis and contact MD Follow up with: PRIMARY CARE,MD [Primary Care Provider] - 3-5 Days KATTY SLATER DO [Staff Physician] - 7 Days GARCIA OSBORN DO [Staff Physician] - 7 Days Prescriptions: Apixaban [Eliquis] 2 tab PO Q12HR #22 tablet Apixaban [Eliquis] 5 mg PO Q12HR #42 tablet
[2018-04-01] MEDS: ELIQUIS PO SCH ×2 (08:54→10:46)
[2018-04-01] MEDS: COREG PO SCH ×2 (08:54→10:45)
[2018-04-01] MEDS: SODIUM CHLORIDE FLUSH SYRINGE 10 ML IV SCH ×2 (08:55→10:46)
--- NOTE | 2018-04-01 11:56 | Progress Note ---
Assessment and Plan - Patient Problems (1) ESRD needing dialysis Current Visit: No Status: Chronic Plan to address problem: next HD Monday per his TTS schedule. From nephrology standpoint, patient stable for DC. (2) Acute deep vein thrombosis (DVT) of right lower extremity Current Visit: Yes Status: Acute Plan to address problem: Plan for chronic anticoagulation per hematology notes/assessment.To start on eliquis 5mg BID (3) Hypertension Current Visit: No Status: Chronic Qualifiers: Hypertension type: essential hypertension Qualified Code(s): I10 - Essential (primary) hypertension Plan to address problem: Blood pressure stable on current regimen. (4) Diabetes mellitus with ESRD (end-stage renal disease) Current Visit: Yes Status: Acute Plan to address problem: Treatment per primary team. Subjective Date of service: 04/01/18 Interval history: No acute issues overnight. labs noted. Objective - Vital Signs Vital signs: Vital Signs - 12hr 04/01/18 04/01/18 04/01/18 02:20 06:00 07:11 Temperature 97.8 F 99.0 F Pulse Rate 92 H 92 H Respiratory 18 18 Rate Blood Pressure 139/72 127/69 O2 Sat by Pulse 100 Oximetry - General Appearance General appearance: well-developed, well-nourished, appears stated age EENT: ATNC, PERRL Neck: no JVD, no thyromegaly, supple Respiratory: Present: Clear to Ascultation, Normal Exam Cardiology: regular, S1S2 Gastrointestinal: normal, normoactive bowel sounds Integumentary: no rash Neurologic: no focal deficit, no asterixis Musculoskeletal: other (RLE swelling/edema ) Psychiatric: mood/affect appropriate, cooperative - Lab 04/01/18 08:00 04/01/18 08:00 Most recent lab results Calcium 8.1 mg/dL (8.4-10.2) L 04/01/18 08:00 - Allied health notes Allied health notes reviewed: nursing
[2018-04-01 13:18] LABS: Anisocytosis 1+; Basophils % (Manual) 0 % (0.0-1.8); Platelet Estimate Consistent w Auto; Total Cells Counted 100
[2018-04-01 13:47] VITALS: BP 120/66
[2018-04-01 16:59] LABS: Protein S, Free 51 % normal (57-171); Protein S, Total 84 % (70-140)
[2018-04-07] MEDS ORDERED: ELIQUIS PO SCH (10:00)
== END 2018-04-01 14:20 | DRG 299 ==
LOC: ED 23:31 → 4A 03-29 03:38 → 2B-ACE 03-30 21:15
PROVIDERS: ADMIT Internal Medicine; ATTEND Internal Medicine
PROC: 5A1D70Z Performance of Urinary Filtration, Intermittent, Less than 6 Hours Per Day (ICD-10-PCS; principal; 2018-03-29)
PROC: 5A1D70Z Performance of Urinary Filtration, Intermittent, Less than 6 Hours Per Day (ICD-10-PCS; 2018-03-31)
DX: I82.401 Acute embolism and thrombosis of unspecified deep veins of right lower extremity (principal); N18.6 End stage renal disease; I12.0 Hypertensive chronic kidney disease with stage 5 chronic kidney disease or end stage renal disease; G89.29 Other chronic pain; N40.0 Benign prostatic hyperplasia without lower urinary tract symptoms; E11.22 Type 2 diabetes mellitus with diabetic chronic kidney disease; Z85.46 Personal history of malignant neoplasm of prostate; Z82.49 Family history of ischemic heart disease and other diseases of the circulatory system; Z79.4 Long term (current) use of insulin; Z79.899 Other long term (current) drug therapy
CPT/HCPCS: 36415; 71045; 78582; 80048; 82962; 83615; 84154; 85007; 85025; 85220; 85301; 85305; 85307; 85610; 85730; 96372; A9540; A9558; J1650; J1815; J7030

== ENCOUNTER 2018-08-14 08:04 | Outpatient (CLI) | payer MEDICARE ==
[2018-08-14] MEDS ORDERED: DAKIN'S FULL STRENGTH TP ONE (08:39)
[2018-08-14] MEDS ORDERED: DAKIN'S HALF STRENGTH TP SCH (10:00)
== END 2018-08-14 08:05 | disposition home or self-care (01) ==
LOC: WOUND 08:04
PROVIDERS: ATTEND Surgery
DX: E11.621 Type 2 diabetes mellitus with foot ulcer (principal); L89.894 Pressure ulcer of other site, stage 4; L97.516 Non-pressure chronic ulcer of other part of right foot with bone involvement without evidence of necrosis; E11.622 Type 2 diabetes mellitus with other skin ulcer; L97.315 Non-pressure chronic ulcer of right ankle with muscle involvement without evidence of necrosis; L97.821 Non-pressure chronic ulcer of other part of left lower leg limited to breakdown of skin; E11.69 Type 2 diabetes mellitus with other specified complication; M86.471 Chronic osteomyelitis with draining sinus, right ankle and foot; E11.22 Type 2 diabetes mellitus with diabetic chronic kidney disease; Z99.2 Dependence on renal dialysis; Z87.891 Personal history of nicotine dependence
CPT/HCPCS: 99214; A6260; G0463

== ENCOUNTER 2018-08-14 09:15 | Inpatient (IN) | payer MEDICARE ==
[2018-08-14 12:45] LABS: Hematocrit 34.9 % (35.5-45.6); Hemoglobin 10.9 gm/dl (11.8-15.2); Mean Corpuscular HGB Conc 31 % (32-34); Mean Corpuscular Volume 91 fl (84-94); Platelet Count 277 K/mm3 (140-440); Red Blood Count 3.85 M/mm3 (3.65-5.03)
[2018-08-14 12:47] LABS: Red Cell Distribution Width 20.4 % (13.2-15.2)
[2018-08-14 12:57] LABS: Calcium 8.1 mg/dL (8.4-10.2)
[2018-08-14 12:59] LABS: INR 1.14 (0.87-1.13)
[2018-08-14 13:00] LABS: Partial Thromboplastin Time 35.3 Sec. (24.2-36.6)
--- NOTE | 2018-08-14 13:02 | Event Note ---
Date: 08/14/18 Change attending to patient PCP, Dr. Jimenez I was called by Roderick from [facility] for direct admission from wound care center. She did not tell me that patient's PCP was Dr. Jimenez. So, I placed admit orders for Mr. Mcallister. Later after i reviewed old records, I found that patient was just discharged by Dr. Jimenez on 08/03/2018. So, I called and spoke with Dr. Jimenez who has accepted patient and asked that I place a change attending order in the computer.
--- NOTE | 2018-08-14 13:42 | Consultation ---
History of Present Illness Consult date: 08/14/17 Reason for consult: other (Right ankle wound) - History of present illness History of present illness: 73 yo diabetic male with a deep, open left ankle wound. Pt has been non- ambulatory for over 3 months. He is s/p left TMA. Past History Past Medical History: diabetes, other (ckd) Medications and Allergies Allergies Allergy/AdvReac Type Severity Reaction Status Date / Time No Known Allergies Allergy Verified 01/18/18 20:10 Home Medications Medication Instructions Recorded Confirmed Last Taken Type Acetaminophen [Acetaminophen TAB] 650 mg PO Q4H PRN 03/12/18 07/19/18 Unknown History Calcium Acetate [Phoslo] 667 mg PO TID 03/12/18 07/19/18 05/13/18 17:00 History Carvedilol [Coreg] 6.25 mg PO BID 03/12/18 07/19/18 05/13/18 09:00 History Ergocalciferol 50,000 unit PO QWEEK 03/12/18 07/19/18 05/11/18 09:00 History Flomax 0.4 mg PO HS 03/12/18 07/19/18 05/13/18 09:00 History Insulin Aspart [NovoLOG Flexpen] See Protocol SQ TID 03/12/18 07/19/18 05/13/18 History Loperamide [Imodium] 4 mg PO PRN PRN 03/12/18 07/19/18 Unknown History Review of Systems All systems: negative (none) Exam Vital Signs Temp Pulse Resp BP Pulse Ox 98.2 F 107 H 16 140/77 99 08/14/18 10:39 08/14/18 10:39 08/14/18 10:39 08/14/18 10:39 08/14/18 10:39 - General physical appearance Positive: well developed, well nourished, no distress - Eyes Positive: PERRL, normal occular movement - ENT Positive: normal pinna, normal nares, normal mucosa, no hearing loss, no congestion - Neck Positive: no masses, no bruits, trachea midline, no venous distension - Respiratory Positive: normal expansion, normal respiratory effort, clear to auscultation - Cardiovascular Rhythm: regular Heart Sounds: Present: S1 & S2. Absent: rub, click - Extremities Extremity abnormal: other (There is a 5 X 5 cm open wound of the medial right ankle which down to bone. The foot appears to be attached to the leg only by soft tissue as the normal ankle architecture is absent.) - Breasts Breasts: deferred - Abdomen Abdomen: Present: soft, bowel sounds normal. Absent: tender, distended Hernia: none - Genitourinary Male Genitourinary: deferred - Neurologic Neurologic: alert and oriented to time, place and person, motor strength and sensation are grossly intact - Psychiatric Psychiatric: appropriate mood/affect, intact judgment & insight Results - Labs 08/14/18 12:16 08/14/18 12:16 Abnormal lab results 08/14/18 08/14/18 08/14/18 Range/Units 12:16 12:16 12:16 WBC 4.3 L (4.5-11.0) K/mm3 Hgb 10.9 L (11.8-15.2) gm/dl Hct 34.9 L (35.5-45.6) % MCHC 31 L (32-34) % RDW 20.4 H (13.2-15.2) % PT 15.0 H (12.2-14.9) Sec. INR 1.14 H (0.87-1.13) Chloride 110.8 H (98-107) mmol/L BUN 45 H (9-20) mg/dL Creatinine 2.9 H (0.8-1.5) mg/dL Calcium 8.1 L (8.4-10.2) mg/dL Albumin 2.0 L (3.9-5) g/dL Diabetes panel 08/14/18 Range/Units 12:16 Sodium 144 (137-145) mmol/L Potassium 4.3 (3.6-5.0) mmol/L Chloride 110.8 H (98-107) mmol/L Carbon Dioxide 23 (22-30) mmol/L BUN 45 H (9-20) mg/dL Creatinine 2.9 H (0.8-1.5) mg/dL Glucose 82 (75-100) mg/dL Calcium 8.1 L (8.4-10.2) mg/dL AST 21 (5-40) units/L ALT 8 (7-56) units/L Alkaline Phosphatase 91 (35-129) units/L Total Protein 7.7 (6.3-8.2) g/dL Albumin 2.0 L (3.9-5) g/dL Calcium panel 08/14/18 Range/Units 12:16 Calcium 8.1 L (8.4-10.2) mg/dL Albumin 2.0 L (3.9-5) g/dL Pituitary panel 08/14/18 Range/Units 12:16 Sodium 144 (137-145) mmol/L Potassium 4.3 (3.6-5.0) mmol/L Chloride 110.8 H (98-107) mmol/L Carbon Dioxide 23 (22-30) mmol/L BUN 45 H (9-20) mg/dL Creatinine 2.9 H (0.8-1.5) mg/dL Glucose 82 (75-100) mg/dL Calcium 8.1 L (8.4-10.2) mg/dL Adrenal panel 08/14/18 Range/Units 12:16 Sodium 144 (137-145) mmol/L Potassium 4.3 (3.6-5.0) mmol/L Chloride 110.8 H (98-107) mmol/L Carbon Dioxide 23 (22-30) mmol/L BUN 45 H (9-20) mg/dL Creatinine 2.9 H (0.8-1.5) mg/dL Glucose 82 (75-100) mg/dL Calcium 8.1 L (8.4-10.2) mg/dL Total Bilirubin 0.50 (0.1-1.2) mg/dL AST 21 (5-40) units/L ALT 8 (7-56) units/L Alkaline Phosphatase 91 (35-129) units/L Total Protein 7.7 (6.3-8.2) g/dL Albumin 2.0 L (3.9-5) g/dL Assessment and Plan - Patient Problems (1) Diabetes with skin complication Current Visit: Yes Status: Acute (2) Diabetes mellitus with ulcer of ankle Current Visit: Yes Status: Acute Plan to address problem: 1) A major amputation is indicated. Since the pt is non-ambulatory, a right AKA seems prudent. This will be performed tomorrow if an OR is available. 2) NPO after MN 3) Pt is agreeable to #1.
--- NOTE | 2018-08-14 21:17 | History and Physical Report ---
History of Present Illness Date of examination: 08/14/18 Date of admission: 08/14/18 11:08 Chief complaint: Right ankle wound /osteo infection. History of present illness: Patient seen/examined, notes reviewed, case d/w patient. No family at the bed side. Patient was admitted directly from the wound care center for the above reasons.He was just d/c back to the [place], after long debate about need for amputation of the same limb. I have spoken to the patient, and he is now agreeing to amputation, and is planned for tomorrow pending availability of OR space.He has multiple other medical problems, including DM, poor oral intake, remote hx of prostate cancer.He is also anemic, but CBC fairly stable for surgery at this time. Past History Past Medical History: cancer, diabetes, renal failure, other (ckd) Past Surgical History: Other (left foot surgery.) Social history: no significant social history Family history: no significant family history Medications and Allergies Allergies Allergy/AdvReac Type Severity Reaction Status Date / Time No Known Allergies Allergy Verified 01/18/18 20:10 Home Medications Medication Instructions Recorded Confirmed Last Taken Type Acetaminophen [Acetaminophen TAB] 650 mg PO Q4H PRN 03/12/18 07/19/18 Unknown History Calcium Acetate [Phoslo] 667 mg PO TID 03/12/18 07/19/18 05/13/18 17:00 History Carvedilol [Coreg] 6.25 mg PO BID 03/12/18 07/19/18 05/13/18 09:00 History Ergocalciferol 50,000 unit PO QWEEK 03/12/18 07/19/18 05/11/18 09:00 History Flomax 0.4 mg PO HS 03/12/18 07/19/18 05/13/18 09:00 History Insulin Aspart [NovoLOG Flexpen] See Protocol SQ TID 03/12/18 07/19/18 05/13/18 History Loperamide [Imodium] 4 mg PO PRN PRN 03/12/18 07/19/18 Unknown History Review of Systems Constitutional: weight loss, fatigue, chronic pain Musculoskeletal: shooting leg pain Exam - Constitutional Vitals: Temp Pulse Resp BP Pulse Ox 97.9 F 107 H 18 135/84 100 08/14/18 17:24 08/14/18 17:24 08/14/18 17:24 08/14/18 17:24 08/14/18 17:24 General appearance: Present: mild distress, cachectic - EENT Eyes: Present: PERRL ENT: hearing intact, clear oral mucosa - Neck Neck: Present: supple, normal ROM - Respiratory Respiratory effort: normal Respiratory: bilateral: CTA - Cardiovascular Heart Sounds: Present: S1 & S2. Absent: rub, click - Extremities Extremities: pulses symmetrical, No edema Peripheral Pulses: within normal limits - Abdominal General gastrointestinal: Present: soft, tender, normal bowel sounds Male genitourinary: Present: deferred - Rectal Rectal Exam: deferred - Integumentary Integumentary: Present: clear, warm, dry - Musculoskeletal Musculoskeletal: gait normal, strength equal bilaterally - Psychiatric Psychiatric: appropriate mood/affect, intact judgment & insight - Neurologic Neurologic: CNII-XII intact, moves all extremities Results - Labs CBC & Chem 7: 08/14/18 12:16 08/14/18 12:16 Labs: Abnormal lab results 08/14/18 08/14/18 08/14/18 Range/Units 11:47 12:16 12:16 WBC 4.3 L (4.5-11.0) K/mm3 Hgb 10.9 L (11.8-15.2) gm/dl Hct 34.9 L (35.5-45.6) % MCHC 31 L (32-34) % RDW 20.4 H (13.2-15.2) % PT 15.0 H (12.2-14.9) Sec. INR 1.14 H (0.87-1.13) Chloride (98-107) mmol/L BUN (9-20) mg/dL Creatinine (0.8-1.5) mg/dL POC Glucose 122 H (70-105) Calcium (8.4-10.2) mg/dL Albumin (3.9-5) g/dL 08/14/18 08/14/18 Range/Units 12:16 17:31 WBC (4.5-11.0) K/mm3 Hgb (11.8-15.2) gm/dl Hct (35.5-45.6) % MCHC (32-34) % RDW (13.2-15.2) % PT (12.2-14.9) Sec. INR (0.87-1.13) Chloride 110.8 H (98-107) mmol/L BUN 45 H (9-20) mg/dL Creatinine 2.9 H (0.8-1.5) mg/dL POC Glucose 108 H (70-105) Calcium 8.1 L (8.4-10.2) mg/dL Albumin 2.0 L (3.9-5) g/dL Assessment and Plan - Patient Problems (1) Diabetes mellitus with ulcer of ankle Current Visit: Yes Status: Acute Plan to address problem: control BG. (2) Diabetes with skin complication Current Visit: Yes Status: Acute Plan to address problem: skin care. (3) Acute deep vein thrombosis (DVT) of right lower extremity Current Visit: No Status: Acute Plan to address problem: resume Eliquis, once safe.ie post surgery,if tomorrow, otherwise, resume ARPIT until surgery ready. (4) Acute encephalopathy Current Visit: No Status: Acute Plan to address problem: supportive care (5) Debility, unspecified Current Visit: No Status: Acute Plan to address problem: supportive care
[2018-08-14 22:23] LABS: INR 1.33 (0.87-1.13)
--- NOTE | 2018-08-15 07:26 | Anesthesia Consultation ---
Anesthesia Consult and Med Hx Date of service: 08/15/18 - Airway Anesthetic Teeth Evaluation: Poor ROM Head & Neck: Adequate Mental/Hyoid Distance: Adequate Mallampati Class: Class II Intubation Access Assessment: Probably Good - Pulmonary Exam CTA: Yes - Cardiac Exam Cardiac Exam: RRR - Pre-Operative Health Status ASA Pre-Surgery Classification: ASA3 - Pulmonary Hx Smoking: No Hx Sleep Apnea: No (KRISTEN PRE SCREEN HIGH RISK) - Cardiovascular System Hx Hypertension: Yes Hx Heart Attack/AMI: No Hx Cardia Arrhythmia: No Hx Peripheral Vascular Disease: Yes (LEGS-PARTIAL AMPUTATION LEFT FOOT) - Central Nervous System Hx Neuromuscular Disorder: No - Gastrointestinal Hx Gastroesophageal Reflux Disease: No - Endocrine Hx Renal Disease: Yes (unknown) Hx End Stage Renal Disease: Yes (elevated creatinine in chart (2.9) but patient denies renal problem. ) - Hematic Hx Anemia: Yes Hx Sickle Cell Disease: No - Other Systems Hx Alcohol Use: No Hx Substance Use: No Hx Cancer: Yes (H/O of prostate cancer) Hx Obesity: No (patient appears emaciated.) - Additional Comments Anesthesia Medical History Comments: No GAC, No FHAC
--- NOTE | 2018-08-15 09:50 | Consultation ---
History of Present Illness - Reason for Consult Consult date: 08/15/18 chronic renal failure - History of Present Illness Very pleasant 73-year-old -[place] male, resident of half-way facility, well known to us from the outpatient dialysis unit, who has a past medical history significant for advanced chronic kidney disease in the setting of diabetes and hypertension along with a history of nonhealing right ankle wound osteomyelitis who presents to the emergency room department yesterday secondary to worsening right ankle wound drainage and need for surgery. He had previously been at [facility] last month and was evaluated by surgery for the likely need of right [id number] amputation in the setting of nonhealing ulcer and osteomyelitis that had not been responsive to IV antibiotics. At that time patient was not willing to go through with the surgery. Apparently at this time he is willing to go through with the aforementioned procedure per primary physician noted. During that admission we were able to hold off on dialysis and he has not required dialysis over the last 3 weeks. I also confirmed this with the outpatient dialysis unit as Mr. Shine goyal's has not had to come back to the dialysis unit since discharge. Nephrology's has been asked consult on patient secondary to his advanced chronic kidney disease. Past History Past Medical History: cancer, diabetes, renal failure, other (ckd) Past Surgical History: Other (left foot surgery.) Social history: no significant social history Family history: no significant family history Medications and Allergies Allergies Allergy/AdvReac Type Severity Reaction Status Date / Time No Known Allergies Allergy Verified 01/18/18 20:10 Home Medications Medication Instructions Recorded Confirmed Last Taken Type Acetaminophen [Acetaminophen TAB] 650 mg PO Q4H PRN 03/12/18 07/19/18 Unknown History Calcium Acetate [Phoslo] 667 mg PO TID 03/12/18 07/19/18 05/13/18 17:00 History Carvedilol [Coreg] 6.25 mg PO BID 03/12/18 07/19/18 05/13/18 09:00 History Ergocalciferol 50,000 unit PO QWEEK 03/12/18 07/19/18 05/11/18 09:00 History Flomax 0.4 mg PO HS 03/12/18 07/19/18 05/13/18 09:00 History Insulin Aspart [NovoLOG Flexpen] See Protocol SQ TID 03/12/18 07/19/1818 History Loperamide [Imodium] 4 mg PO PRN PRN 03/12/18 07/19/18 Unknown History Review of Systems All systems: negative Constitutional: weakness Integumentary: foot/leg ulcers Exam - Vital Signs Vital signs: Vital Signs Temp Pulse Resp BP Pulse Ox 98.2 F 107 H 16 140/77 99 08/14/18 10:39 08/14/18 10:39 08/14/18 10:39 08/14/18 10:39 08/14/18 10:39 - General Appearance General appearance: well-developed, appears stated age, chronically ill, frail EENT: ATNC, PERRL Neck: Present: neck supple Respiratory: Clear to Ascultation Heart: regular, S1S2 Gastrointestinal: Present: normal, normoactive bowel sounds Integumentary: no rash, warm and dry Neurologic: no focal deficit, no asterixis Psychiatric: mood/affect appropriate, cooperative Results - Lab Results 08/14/18 12:16 08/14/18 12:16 Most recent lab results Calcium 8.1 mg/dL (8.4-10.2) L 08/14/18 12:16 Assessment and Plan - Patient Problems (1) CKD (chronic kidney disease) stage 4, GFR 15-29 ml/min Current Visit: Yes Status: Acute Plan to address problem: Labs noted and overall his renal function and clearance are stable and we will continue to hold off on HD at this time. Will monitor renal function closely especially in postoperative state. (2) Diabetes mellitus with ulcer of ankle Current Visit: Yes Status: Acute Plan to address problem: Plan for OR today. Appropriate wound care. Will follow up on further surgical recommendations. (3) Osteomyelitis Current Visit: No Status: Chronic Qualifiers: Osteomyelitis type: subacute Osteomyelitis location: foot Plan to address problem: s/p antibiotics without appropriate response. Plan for OR today for R. AKA (4) Hypertensive chronic kidney disease with stage 5 chronic kidney disease or end stage renal disease Current Visit: No Status: Chronic Plan to address problem: Continue on current regimen and will monitor closely. (5) Type 2 diabetes mellitus with diabetic chronic kidney disease Current Visit: No Status: Chronic Qualifiers: Chronic kidney disease stage: stage 4 (severe) Plan to address problem: DM management per primary team.
[2018-08-15] MEDS ORDERED: NACL 0.9% 1000 ML 1,000 ML ONE (12:37)
[2018-08-15] MEDS ORDERED: ANCEF/STERILE WATER 2 GM/20 ML 2 GM/20 ML SYRINGE IV ONE (12:38)
[2018-08-15] MEDS ORDERED: HEPARIN ONE (12:38)
[2018-08-15] MEDS: NACL 0.9% 1000 ML 1,000 ML IV SCH ×2 (12:47→23:09)
[2018-08-15] MEDS: HEPARIN SUB-Q SCH (12:48)
[2018-08-15] MEDS ORDERED: ANCEF/STERILE WATER 2 GM/20 ML IV NR (13:00)
[2018-08-15] MEDS ORDERED: Vasostrict ONE (13:14)
[2018-08-15] MEDS ORDERED: DECADRON ONE (13:15)
[2018-08-15] MEDS ORDERED: SUBLIMAZE ONE (13:15)
[2018-08-15] MEDS ORDERED: ZOFRAN ONE (13:15)
[2018-08-15] MEDS ORDERED: AMIDATE IV ONE (13:15)
[2018-08-15] MEDS ORDERED: NEO SYNEPHRINE ONE (13:34)
--- NOTE | 2018-08-15 14:43 | Anesthesia Day of Surgery ---
Anesthesia Day of Surgery - Day of Surgery Patient Examined: Yes Patient H&P Reviewed: Yes Patient is NPO: Yes
[2018-08-15] MEDS ORDERED: ZOFRAN IV PRN (14:44)
[2018-08-15] MEDS ORDERED: DILAUDID IV PRN (14:44)
--- NOTE | 2018-08-15 14:44 | Anesthesia Consultation ---
Anesthesia Consult and Med Hx Date of service: 08/15/18 - Airway Anesthetic Teeth Evaluation: Poor ROM Head & Neck: Adequate Mental/Hyoid Distance: Adequate Mallampati Class: Class I Intubation Access Assessment: Good - Pulmonary Exam CTA: Yes - Cardiac Exam Cardiac Exam: RRR - Pre-Operative Health Status ASA Pre-Surgery Classification: ASA3 Proposed Anesthetic Plan: General - Pulmonary Hx Smoking: No Hx Sleep Apnea: No (KRISTEN PRE SCREEN HIGH RISK) - Cardiovascular System Hx Hypertension: Yes Hx Heart Attack/AMI: No Hx Cardia Arrhythmia: No Hx Peripheral Vascular Disease: Yes (LEGS-PARTIAL AMPUTATION LEFT FOOT) - Central Nervous System Hx Neuromuscular Disorder: No - Gastrointestinal Hx Gastroesophageal Reflux Disease: No - Endocrine Hx Renal Disease: Yes (unknown) Hx End Stage Renal Disease: Yes (elevated creatinine in chart (2.9) but patient denies renal problem. ) - Hematic Hx Anemia: Yes Hx Sickle Cell Disease: No - Other Systems Hx Alcohol Use: No Hx Substance Use: No Hx Cancer: Yes (H/O of prostate cancer) Hx Obesity: No (patient appears emaciated.) - Additional Comments Anesthesia Medical History Comments: No GAC, No FHAC
--- NOTE | 2018-08-15 15:10 | Procedure Note ---
Date of procedure: 08/15/18 Pre-op diagnosis: Osteomyelitis with large open wound of right ankle Post-op diagnosis: same Procedure: Right AKA Description of procedure: Pt was placed supine on the OR table. General anesthesia by LMA was administered. The right lower extremity was prepped and draped. A fish mouth incision was made about the distal thigh. The greater saphenous vein was clamped, divided and ligated with ties of 2-0 silk. Muscle compartments were transected with the Bovie. The superficial femoral artery and vein were clamped, divided and ligated with 2-0 silk stick ties. The periosteum was elevated off of the distal femur. The distal femur was amputated several centimeters proximal to the skin flap with a bone saw. Sciatic nerve was maximally retracted and was amputated proximally with the Bovie. Wound was irrigated with warm saline. Anterior and posterior fascia were approximated with interrupted 3-0 Vicryl's. Skin was approximated with alejandra. Xeroform, fluffed gauze, a Kerlix roll and a Coban roll were applied. Pt tolerated the procedure well. He was taken to PACU in stable condition. Anesthesia: other (LMA) Event Marketing Representative: RONNIE LAY Estimated blood loss: other (150 ml) Pathology: list (right lower extremity) Specimen disposition: to lab Condition: stable Disposition: PACU
--- NOTE | 2018-08-15 15:45 | Post Anesthesia Evaluation ---
- Post Anesthesia Evaluation Patient Participated: Yes Airway Patent: Yes Stable Respiratory Function: Yes Nausea/Vomiting: No Temp > 96.8F: Yes Pain Manageable: Yes Adequeate Hydration: Yes Anesthesia Complications: No
--- NOTE | 2018-08-16 00:12 | Progress Note ---
Assessment and Plan - Patient Problems (1) Diabetes mellitus with ulcer of ankle Current Visit: Yes Status: Acute Plan to address problem: control BG. post amputation. (2) Diabetes with skin complication Current Visit: Yes Status: Acute Plan to address problem: skin care. (3) Acute deep vein thrombosis (DVT) of right lower extremity Current Visit: No Status: Acute Plan to address problem: resume Eliquis, once safe.ie post surgery,if tomorrow, otherwise, resume ARPIT until surgery ready. post amputation. (4) Acute encephalopathy Current Visit: No Status: Acute Plan to address problem: supportive care (5) Debility, unspecified Current Visit: No Status: Acute Plan to address problem: supportive care Subjective Date of service: 08/16/18 (patient seen earlier on 08/15/18) Principal diagnosis: post amputation. Interval history: Patient seen earlier, post amputation, resting ok, labs/records reviewed, as well as notes.will follow surgery, nutrition support. consult nutrition service. Objective - Constitutional Vitals: Vital Signs - 12hr 08/15/18 08/15/18 08/15/18 12:15 15:08 15:20 Temperature 98.7 F 97.1 F L Pulse Rate 97 H 94 H 95 H Respiratory 12 12 12 Rate Respiratory Rate [Bilateral Foot] Respiratory Rate [Left Jaw] Respiratory Rate [Scrotum] Blood Pressure 141/76 133/78 141/75 Blood Pressure [Left] O2 Sat by Pulse 100 100 100 Oximetry 08/15/18 08/15/18 08/15/18 15:28 15:33 16:07 Temperature 98.7 F Pulse Rate 93 H 93 H 94 H Respiratory 13 13 20 Rate Respiratory Rate [Bilateral Foot] Respiratory Rate [Left Jaw] Respiratory Rate [Scrotum] Blood Pressure 135/74 132/72 Blood Pressure 126/69 [Left] O2 Sat by Pulse 100 100 99 Oximetry 08/15/18 08/15/18 17:40 22:00 Temperature 97.5 F L Pulse Rate 95 H Respiratory 18 Rate Respiratory 17 Rate [Bilateral Foot] Respiratory 17 Rate [Left Jaw] Respiratory 17 Rate [Scrotum] Blood Pressure 134/76 Blood Pressure [Left] O2 Sat by Pulse 100 Oximetry General appearance: Present: mild distress, cachectic - EENT Eyes: PERRL, EOM intact ENT: hearing intact, clear oral mucosa Ears: bilateral: normal - Neck Neck: supple, normal ROM - Respiratory Respiratory effort: normal Respiratory: bilateral: CTA - Breasts Breasts: deferred - Cardiovascular Rhythm: regular Heart Sounds: Present: S1 & S2. Absent: gallop, rub Extremities: pulses intact, No edema, normal color, Full ROM - Gastrointestinal General gastrointestinal: Present: soft, non-tender, non-distended, normal bowel sounds Rectal Exam: deferred - Genitourinary Male genitourinary: deferred - Integumentary Integumentary: clear, warm, dry - Musculoskeletal Musculoskeletal: 1, strength equal bilaterally - Neurologic Neurologic: moves all extremities - Psychiatric Psychiatric: appropriate mood/affect - Labs CBC & Chem 7: 08/14/18 12:16 08/14/18 12:16 Labs: Abnormal lab results 08/15/18 08/15/18 08/15/18 Range/Units 13:11 21:08 21:26 POC Hgb 11.2 L (12-17) POC Hct 33 L (38-51) POC Sodium 150 H (138-146) mmol/L POC Chloride 116 H (98-109) POC BUN 40 H (8-26) mg/dl POC Glucose 163 H (70-105) Prealbumin 0.040 L (0.200-0.400) g/L Medications & Allergies - Medications Allergies/Adverse Reactions: Allergies No Known Allergies Allergy (Verified 01/18/18 20:10) Home Medications: Home Medications Medication Instructions Recorded Confirmed Last Taken Type Acetaminophen [Acetaminophen TAB] 650 mg PO Q4H PRN 03/12/18 07/19/18 Unknown History Calcium Acetate [Phoslo] 667 mg PO TID 03/12/18 07/19/18 05/13/18 17:00 History Carvedilol [Coreg] 6.25 mg PO BID 03/12/18 07/19/18 05/13/18 09:00 History Ergocalciferol 50,000 unit PO QWEEK 03/12/18 07/19/18 05/11/18 09:00 History Flomax 0.4 mg PO HS 03/12/18 07/19/18 05/13/18 09:00 History Insulin Aspart [NovoLOG Flexpen] See Protocol SQ TID 03/12/18 07/19/18 05/13/18 History Loperamide [Imodium] 4 mg PO PRN PRN 03/12/18 07/19/18 Unknown History Active Medications: Generic Name Dose Route Start Last Admin Trade Name Freq PRN Reason Stop Dose Admin Heparin Sodium (Porcine) 5,000 unit 08/15/18 12:30 08/15/18 12:48 Heparin SUB-Q 5,000 unit ONCE KIRSTEN Administration Hydromorphone HCl 0.5 mg 08/15/18 14:44 Dilaudid IV 08/16/18 14:43 Q10MIN PRN Pain , Severe (7-10) Sodium Chloride 1,000 mls @ 75 mls/hr 08/15/18 13:00 08/15/18 23:09 Nacl 0.9% 1000 Ml IV 75 mls/hr DIRECT KIRSTEN Administration
[2018-08-16 05:51] LABS: Hematocrit 27.9 % (35.5-45.6); Hemoglobin 8.9 gm/dl (11.8-15.2); Mean Corpuscular Volume 91 fl (84-94); Red Blood Count 3.05 M/mm3 (3.65-5.03)
[2018-08-16 05:52] LABS: Basophils % (Auto) 0.7 % (0.0-1.8); Eosinophils % (Auto) 1.3 % (0.0-4.3); Lymphocytes # (Auto) 0.9 K/mm3 (1.2-5.4); Lymphocytes % (Auto) 21.4 % (13.4-35.0); Mean Corpuscular HGB Conc 32 % (32-34); Monocytes # (Auto) 0.3 K/mm3 (0.0-0.8); Monocytes % (Auto) 8.6 % (0.0-7.3); Platelet Count 233 K/mm3 (140-440); Red Cell Distribution Width 20.1 % (13.2-15.2)
[2018-08-16 06:13] LABS: Albumin 1.8 g/dL (3.9-5); BUN/Creatinine Ratio 18; Blood Urea Nitrogen 42 mg/dL (9-20); Calcium 7.1 mg/dL (8.4-10.2); Hemolysis Index 5
[2018-08-16 06:14] LABS: Alanine Aminotransferase < 5 units/L (7-56)
--- NOTE | 2018-08-16 09:22 | Progress Note ---
Assessment and Plan - Patient Problems (1) CKD (chronic kidney disease) stage 4, GFR 15-29 ml/min Current Visit: Yes Status: Acute Plan to address problem: Labs noted and overall his renal function and clearance are stable and we will continue to hold off on HD at this time. Will monitor renal function closely especially in postoperative state. (2) Diabetes mellitus with ulcer of ankle Current Visit: Yes Status: Acute Plan to address problem: S/P R.AKA POD 1. Appropriate wound care. Will follow up on further surgical recommendations. (3) Osteomyelitis Current Visit: No Status: Chronic Qualifiers: Osteomyelitis type: subacute Osteomyelitis location: foot Plan to address problem: s/p antibiotics without appropriate response. S/P R. AKA POD 1 (4) Hypertensive chronic kidney disease with stage 5 chronic kidney disease or end stage renal disease Current Visit: No Status: Chronic Plan to address problem: Continue on current regimen and will monitor closely. (5) Type 2 diabetes mellitus with diabetic chronic kidney disease Current Visit: No Status: Chronic Qualifiers: Chronic kidney disease stage: stage 4 (severe) Plan to address problem: DM management per primary team. Subjective Date of service: 08/16/18 Principal diagnosis: post amputation. Interval history: s/p R.AKA. Labs noted, and renal function remains stable and there is no acute indications for HD today. On gentle IVF hydration with NS @ 75cc/hr. Objective - Vital Signs Vital signs: Vital Signs - 12hr 08/15/18 08/15/18 22:00 23:43 Temperature 97.4 F L Pulse Rate 93 H Respiratory 20 Rate Respiratory 17 Rate [Bilateral Foot] Respiratory 17 Rate [Left Jaw] Respiratory 17 Rate [Scrotum] Blood Pressure 139/44 O2 Sat by Pulse 100 Oximetry - General Appearance General appearance: appears stated age, cachectic, frail EENT: ATNC, PERRL Neck: no JVD, no thyromegaly Respiratory: Present: Clear to Ascultation, Normal Exam Cardiology: regular, S1S2 Gastrointestinal: normal, normoactive bowel sounds Integumentary: warm and dry, ulcer Neurologic: no focal deficit Musculoskeletal: other (R. AKA, left TMA with dressing in place ) Psychiatric: cooperative - Lab 08/16/18 05:12 08/16/18 05:12 Most recent lab results Calcium 7.1 mg/dL (8.4-10.2) L 08/16/18 05:12 - Allied health notes Allied health notes reviewed: nursing Medications & Allergies - Medications Allergies/Adverse Reactions: Allergies No Known Allergies Allergy (Verified 01/18/18 20:10) Home Medications: Home Medications Medication Instructions Recorded Confirmed Last Taken Type Acetaminophen [Acetaminophen TAB] 650 mg PO Q4H PRN 03/12/18 07/19/18 Unknown History Calcium Acetate [Phoslo] 667 mg PO TID 03/12/18 07/19/18 05/13/18 17:00 History Carvedilol [Coreg] 6.25 mg PO BID 03/12/18 07/19/18 05/13/18 09:00 History Ergocalciferol 50,000 unit PO QWEEK 03/12/18 07/19/18 05/11/18 09:00 History Flomax 0.4 mg PO HS 03/12/18 07/19/18 05/13/18 09:00 History Insulin Aspart [NovoLOG Flexpen] See Protocol SQ TID 03/12/18 07/19/18 05/13/18 History Loperamide [Imodium] 4 mg PO PRN PRN 03/12/18 07/19/18 Unknown History Active Medications: Generic Name Dose Route Start Last Admin Trade Name Freq PRN Reason Stop Dose Admin Heparin Sodium (Porcine) 5,000 unit 08/15/18 12:30 08/15/18 12:48 Heparin SUB-Q 5,000 unit ONCE KIRSTEN Administration Hydromorphone HCl 0.5 mg 08/15/18 14:44 Dilaudid IV 08/16/18 14:43 Q10MIN PRN Pain , Severe (7-10) Sodium Chloride 1,000 mls @ 75 mls/hr 08/15/18 13:00 08/15/18 23:09 Nacl 0.9% 1000 Ml IV 75 mls/hr DIRECT KIRSTEN Administration
[2018-08-16] MEDS: NACL 0.9% 1000 ML 1,000 ML IV SCH ×2 (11:15→21:39)
[2018-08-16] MEDS: HEPARIN SUB-Q SCH (11:17)
--- NOTE | 2018-08-16 11:17 | Progress Note ---
Assessment and Plan - Patient Problems (1) Diabetes with skin complication Current Visit: Yes Status: Acute (2) Diabetes mellitus with ulcer of ankle Current Visit: Yes Status: Acute (3) Severe protein-calorie malnutrition Current Visit: Yes Status: Acute Plan to address problem: 1) I told the pt he was severely malnourished and that I recommended a PEG tube to supplement his nutritional intake. He does not desire a PEG. However, I do not feel he is competent to make a decision (He couldn't give me the date yesterday.). I will discuss the possibility of PEG tube placement with his family. 2) It is okay to resume Eliquis from my perspective. 3) Pt can be discharged from my perspective. [facility]. Subjective Date of service: 08/16/18 Patient Reports: Positive: no new complaints Objective Vital Signs - 12hr 08/15/18 23:43 Temperature 97.4 F L Pulse Rate 93 H Respiratory 20 Rate Blood Pressure 139/44 O2 Sat by Pulse 100 Oximetry - Musculoskeletal other (Right thigh dressing is c/d/i.) - Labs 08/16/18 05:12 08/16/18 05:12 Diabetes panel 08/16/18 Range/Units 05:12 Sodium 141 (137-145) mmol/L Potassium 3.6 (3.6-5.0) mmol/L Chloride 110.4 H (98-107) mmol/L Carbon Dioxide 22 (22-30) mmol/L BUN 42 H (9-20) mg/dL Creatinine 2.4 H (0.8-1.5) mg/dL Glucose 94 (75-100) mg/dL Calcium 7.1 L (8.4-10.2) mg/dL AST 16 (5-40) units/L ALT < 5 L (7-56) units/L Alkaline Phosphatase 76 (35-129) units/L Total Protein 6.4 (6.3-8.2) g/dL Albumin 1.8 L (3.9-5) g/dL Calcium panel 08/16/18 Range/Units 05:12 Calcium 7.1 L (8.4-10.2) mg/dL Albumin 1.8 L (3.9-5) g/dL Pituitary panel 08/16/18 Range/Units 05:12 Sodium 141 (137-145) mmol/L Potassium 3.6 (3.6-5.0) mmol/L Chloride 110.4 H (98-107) mmol/L Carbon Dioxide 22 (22-30) mmol/L BUN 42 H (9-20) mg/dL Creatinine 2.4 H (0.8-1.5) mg/dL Glucose 94 (75-100) mg/dL Calcium 7.1 L (8.4-10.2) mg/dL Adrenal panel 08/16/18 Range/Units 05:12 Sodium 141 (137-145) mmol/L Potassium 3.6 (3.6-5.0) mmol/L Chloride 110.4 H (98-107) mmol/L Carbon Dioxide 22 (22-30) mmol/L BUN 42 H (9-20) mg/dL Creatinine 2.4 H (0.8-1.5) mg/dL Glucose 94 (75-100) mg/dL Calcium 7.1 L (8.4-10.2) mg/dL Total Bilirubin 0.30 (0.1-1.2) mg/dL AST 16 (5-40) units/L ALT < 5 L (7-56) units/L Alkaline Phosphatase 76 (35-129) units/L Total Protein 6.4 (6.3-8.2) g/dL Albumin 1.8 L (3.9-5) g/dL - Imaging Additional Studies: Albumin 1.8, prealbumin 0.04
--- NOTE | 2018-08-16 14:45 | Progress Note ---
Assessment and Plan - Patient Problems (1) Diabetes mellitus with ulcer of ankle Current Visit: Yes Status: Acute Plan to address problem: control BG. post amputation. (2) Diabetes with skin complication Current Visit: Yes Status: Acute Plan to address problem: skin care. (3) Acute deep vein thrombosis (DVT) of right lower extremity Current Visit: No Status: Acute Plan to address problem: resume Eliquis, once safe.ie post surgery,if tomorrow, otherwise, resume ARPIT until surgery ready. post amputation. (4) Acute encephalopathy Current Visit: No Status: Acute Plan to address problem: supportive care (5) Debility, unspecified Current Visit: No Status: Acute Plan to address problem: supportive care Subjective Date of service: 08/16/18 Principal diagnosis: post amputation. Interval history: Patient seen earlier, post amputation, resting ok, labs/records reviewed, as w ell as notes.will follow surgery, nutrition support. consult nutrition service. Patient seen, resting in bed, post op day1of right ankle amputation. He is very malnourished, and had, and continues to refuse peg tube feeding. I had discussed this with his daughter before, and she was deferring decision to him.will resume eliquis, and start TPt for mean time. i am speaking to the physics teacher this joanne dawkins. Objective - Constitutional Vitals: Vital Signs - 12hr 08/16/18 11:24 Temperature 97.6 F Pulse Rate 101 H Respiratory 18 Rate Blood Pressure 115/64 O2 Sat by Pulse 98 Oximetry General appearance: Present: mild distress, cachectic - EENT Eyes: PERRL, EOM intact ENT: hearing intact, clear oral mucosa Ears: bilateral: normal - Neck Neck: supple, normal ROM - Respiratory Respiratory effort: normal Respiratory: bilateral: CTA - Breasts Breasts: deferred - Cardiovascular Rhythm: regular Heart Sounds: Present: S1 & S2. Absent: gallop, rub Extremities: pulses intact, No edema, normal color, Full ROM - Gastrointestinal General gastrointestinal: Present: soft, non-tender, non-distended, normal bowel sounds Rectal Exam: deferred - Genitourinary Male genitourinary: deferred - Integumentary Integumentary: clear, warm, dry - Musculoskeletal Musculoskeletal: 1, strength equal bilaterally - Neurologic Neurologic: moves all extremities - Psychiatric Psychiatric: appropriate mood/affect - Labs CBC & Chem 7: 08/16/18 05:12 08/16/18 05:12 Labs: Abnormal lab results 08/15/18 08/15/18 08/16/18 Range/Units 21:08 21:26 05:12 WBC 4.0 L (4.5-11.0) K/mm3 RBC 3.05 L (3.65-5.03) M/mm3 Hgb 8.9 L (11.8-15.2) gm/dl Hct 27.9 L D (35.5-45.6) % RDW 20.1 H (13.2-15.2) % Meade % (Auto) 8.6 H (0.0-7.3) % Lymph # 0.9 L (1.2-5.4) K/mm3 Chloride (98-107) mmol/L BUN (9-20) mg/dL Creatinine (0.8-1.5) mg/dL POC Glucose 163 H (70-105) Calcium (8.4-10.2) mg/dL ALT (7-56) units/L Albumin (3.9-5) g/dL Prealbumin 0.040 L (0.200-0.400) g/L 08/16/18 Range/Units 05:12 WBC (4.5-11.0) K/mm3 RBC (3.65-5.03) M/mm3 Hgb (11.8-15.2) gm/dl Hct (35.5-45.6) % RDW (13.2-15.2) % Meade % (Auto) (0.0-7.3) % Lymph # (1.2-5.4) K/mm3 Chloride 110.4 H (98-107) mmol/L BUN 42 H (9-20) mg/dL Creatinine 2.4 H (0.8-1.5) mg/dL POC Glucose (70-105) Calcium 7.1 L (8.4-10.2) mg/dL ALT < 5 L (7-56) units/L Albumin 1.8 L (3.9-5) g/dL Prealbumin (0.200-0.400) g/L Medications & Allergies - Medications Allergies/Adverse Reactions: Allergies No Known Allergies Allergy (Verified 01/18/18 20:10) Home Medications: Home Medications Medication Instructions Recorded Confirmed Last Taken Type Acetaminophen [Acetaminophen TAB] 650 mg PO Q4H PRN 03/12/18 07/19/18 Unknown History Calcium Acetate [Phoslo] 667 mg PO TID 03/12/18 07/19/18 05/13/18 17:00 History Carvedilol [Coreg] 6.25 mg PO BID 03/12/18 07/19/18 05/13/18 09:00 History Ergocalciferol 50,000 unit PO QWEEK 03/12/18 07/19/18 05/11/18 09:00 History Flomax 0.4 mg PO HS 03/12/18 07/19/18 05/13/18 09:00 History Insulin Aspart [NovoLOG Flexpen] See Protocol SQ TID 03/12/18 07/19/18 05/13/18 History Loperamide [Imodium] 4 mg PO PRN PRN 03/12/18 07/19/18 Unknown History Active Medications: Generic Name Dose Route Start Last Admin Trade Name Kristen PRN Reason Stop Dose Admin Heparin Sodium (Porcine) 5,000 unit 08/15/18 12:30 08/16/18 11:17 Heparin SUB-Q 5,000 unit ONCE KIRSTEN Administration Hydromorphone HCl 0.5 mg 08/15/18 14:44 Dilaudid IV 08/16/18 14:43 Q10MIN PRN Pain , Severe (7-10) Sodium Chloride 1,000 mls @ 75 mls/hr 08/15/18 13:00 08/16/18 11:15 Nacl 0.9% 1000 Ml IV 75 mls/hr DIRECT KIRTSEN Administration
[2018-08-16] MEDS: ELIQUIS PO SCH (21:38)
[2018-08-16] MEDS ORDERED: ELIQUIS PO SCH (22:00)
--- NOTE | 2018-08-17 08:18 | Progress Note ---
Assessment and Plan - Patient Problems (1) CKD (chronic kidney disease) stage 4, GFR 15-29 ml/min Current Visit: Yes Status: Acute Plan to address problem: Labs pending this am, but overall his renal function and clearance have been stable and we will continue to hold off on HD at this time. Will monitor renal function closely especially in postoperative state. (2) Diabetes mellitus with ulcer of ankle Current Visit: Yes Status: Acute Plan to address problem: S/P R.AKA POD 2. Appropriate wound care. Will follow up on further surgical recommendations. (3) Osteomyelitis Current Visit: No Status: Chronic Qualifiers: Osteomyelitis type: subacute Osteomyelitis location: foot Plan to address problem: s/p antibiotics without appropriate response. S/P R. AKA POD 2 (4) Hypertensive chronic kidney disease with stage 5 chronic kidney disease or end stage renal disease Current Visit: No Status: Chronic Plan to address problem: Continue on current regimen and will monitor closely. (5) Type 2 diabetes mellitus with diabetic chronic kidney disease Current Visit: No Status: Chronic Qualifiers: Chronic kidney disease stage: stage 4 (severe) Plan to address problem: DM management per primary team. Subjective Date of service: 08/17/18 Principal diagnosis: post amputation. Interval history: Events overnight noted. Remains on gentle IVF hydration. No new renal function labs this am. s/p R.AKA POD 2 Objective - Vital Signs Vital signs: Vital Signs - 12hr 08/17/18 08/17/18 00:04 05:26 Temperature 97.5 F L 97.4 F L Pulse Rate 98 H 98 H Respiratory 16 18 Rate Blood Pressure 115/54 135/76 O2 Sat by Pulse 99 99 Oximetry - General Appearance General appearance: appears stated age, cachectic, frail EENT: ATNC, PERRL Neck: no JVD, no thyromegaly Respiratory: Present: Clear to Ascultation Cardiology: regular, S1S2 Gastrointestinal: normal, normoactive bowel sounds Integumentary: ulcer Neurologic: no focal deficit Musculoskeletal: other (RMiguel AKA, Left TMA) Psychiatric: cooperative - Lab 08/16/18 05:12 08/16/18 05:12 Most recent lab results Calcium 7.1 mg/dL (8.4-10.2) L 08/16/18 05:12 - Allied health notes Allied health notes reviewed: nursing Medications & Allergies - Medications Allergies/Adverse Reactions: Allergies No Known Allergies Allergy (Verified 01/18/18 20:10) Home Medications: Home Medications Medication Instructions Recorded Confirmed Last Taken Type Acetaminophen [Acetaminophen TAB] 650 mg PO Q4H PRN 03/12/18 07/19/18 Unknown History Calcium Acetate [Phoslo] 667 mg PO TID 03/12/18 07/19/18 05/13/18 17:00 History Carvedilol [Coreg] 6.25 mg PO BID 03/12/18 07/19/18 05/13/18 09:00 History Ergocalciferol 50,000 unit PO QWEEK 03/12/18 07/19/18 05/11/18 09:00 History Flomax 0.4 mg PO HS 03/12/18 07/19/18 05/13/18 09:00 History Insulin Aspart [NovoLOG Flexpen] See Protocol SQ TID 03/12/18 07/19/18 05/13/18 History Loperamide [Imodium] 4 mg PO PRN PRN 03/12/18 07/19/18 Unknown History Active Medications: Generic Name Dose Route Start Last Admin Trade Name Freq PRN Reason Stop Dose Admin Apixaban 2.5 mg 08/16/18 22:00 08/16/18 21:38 Eliquis PO 2.5 mg BID KIRSTEN Administration Sodium Chloride 1,000 mls @ 75 mls/hr 08/15/18 13:00 08/16/18 21:39 Nacl 0.9% 1000 Ml IV 75 mls/hr DIRECT KIRSTEN Administration
[2018-08-17] MEDS: ELIQUIS PO SCH ×2 (09:16→22:58)
[2018-08-17] MEDS: NACL 0.9% 1000 ML 1,000 ML IV SCH (14:27)
--- NOTE | 2018-08-17 19:28 | Progress Note ---
Assessment and Plan - Patient Problems (1) Diabetes mellitus with ulcer of ankle Current Visit: Yes Status: Acute Plan to address problem: control BG. post amputation. POD#2 (2) Diabetes with skin complication Current Visit: Yes Status: Acute Plan to address problem: skin care. (3) Acute deep vein thrombosis (DVT) of right lower extremity Current Visit: No Status: Acute Plan to address problem: resume Eliquis, once safe.ie post surgery,if tomorrow, otherwise, resume ARPIT until surgery ready. post amputation. (4) Acute encephalopathy Current Visit: No Status: Acute Plan to address problem: supportive care (5) Debility, unspecified Current Visit: No Status: Acute Plan to address problem: supportive care Subjective Date of service: 08/17/18 Principal diagnosis: post amputation. Interval history: Patient seen earlier, post amputation, resting ok, labs/records reviewed, as well as notes.will follow surgery, nutrition support. consult nutrition service. Patient seen, resting in bed, post op day1of right ankle amputation. He is very malnourished, and had, and continues to refuse peg tube feeding. I had discussed this with his daughter before, and she was deferring decision to him.will resume eliquis, and start TPt for mean time. i am speaking to the pattern drafter this moment. patient seen/examined, resting in bed, no new issues at this. Objective - Constitutional Vitals: Vital Signs - 12hr 08/17/18 08/17/18 11:51 17:54 Temperature 98.0 F 98.7 F Respiratory 19 18 Rate Blood Pressure 132/52 132/73 General appearance: Present: mild distress, cachectic - EENT Eyes: PERRL, EOM intact ENT: hearing intact, clear oral mucosa Ears: bilateral: normal - Neck Neck: supple, normal ROM - Respiratory Respiratory effort: normal Respiratory: bilateral: CTA - Breasts Breasts: deferred - Cardiovascular Rhythm: regular Heart Sounds: Present: S1 & S2. Absent: gallop, rub Extremities: pulses intact, No edema, normal color, Full ROM - Gastrointestinal General gastrointestinal: Present: soft, non-tender, non-distended, normal bowel sounds Rectal Exam: deferred - Genitourinary Male genitourinary: deferred - Integumentary Integumentary: clear, warm, dry - Musculoskeletal Musculoskeletal: 1, strength equal bilaterally - Neurologic Neurologic: moves all extremities - Psychiatric Psychiatric: appropriate mood/affect - Labs CBC & Chem 7: 08/16/18 05:12 08/16/18 05:12 Labs: Abnormal lab results 08/17/18 Range/Units 11:53 POC Glucose 119 H (70-105) Medications & Allergies - Medications Allergies/Adverse Reactions: Allergies No Known Allergies Allergy (Verified 01/18/18 20:10) Home Medications: Home Medications Medication Instructions Recorded Confirmed Last Taken Type Acetaminophen [Acetaminophen TAB] 650 mg PO Q4H PRN 03/12/18 07/19/18 Unknown History Calcium Acetate [Phoslo] 667 mg PO TID 03/12/18 07/19/18 05/13/18 17:00 History Carvedilol [Coreg] 6.25 mg PO BID 03/12/18 07/19/18 05/13/18 09:00 History Ergocalciferol 50,000 unit PO QWEEK 03/12/18 07/19/18 05/11/18 09:00 History Flomax 0.4 mg PO HS 03/12/18 07/19/18 05/13/18 09:00 History Insulin Aspart [NovoLOG Flexpen] See Protocol SQ TID 03/12/18 07/19/18 05/13/18 History Loperamide [Imodium] 4 mg PO PRN PRN 03/12/18 07/19/18 Unknown History Active Medications: Generic Name Dose Route Start Last Admin Trade Name Freq PRN Reason Stop Dose Admin Apixaban 2.5 mg 08/16/18 22:00 08/17/18 09:16 Eliquis PO 2.5 mg BID KIRSTEN Administration Sodium Chloride 1,000 mls @ 75 mls/hr 08/15/18 13:00 08/17/18 14:27 Nacl 0.9% 1000 Ml IV 75 mls/hr DIRECT KIRSTEN Administration
[2018-08-18 05:56] LABS: Hematocrit 27.8 % (35.5-45.6); Hemoglobin 8.8 gm/dl (11.8-15.2); Mean Corpuscular HGB Conc 32 % (32-34); Mean Corpuscular Volume 92 fl (84-94); Platelet Count 240 K/mm3 (140-440); Red Blood Count 3.01 M/mm3 (3.65-5.03)
[2018-08-18 06:04] LABS: Calcium 6.4 mg/dL (8.4-10.2)
[2018-08-18 06:34] LABS: Anisocytosis 1+; Ovalocytes 1+; Total Cells Counted 100
[2018-08-18 06:35] LABS: Burr Cells Rare; Tear Drop Cells Rare
[2018-08-18] MEDS: ELIQUIS PO SCH ×2 (10:45→21:42)
--- NOTE | 2018-08-18 10:52 | Progress Note ---
Assessment and Plan - Patient Problems (1) CKD (chronic kidney disease) stage 4, GFR 15-29 ml/min Current Visit: Yes Status: Acute Plan to address problem: Labs pending this am, but overall his renal function and clearance have been stable and we will continue to hold off on HD at this time. Will monitor renal function closely especially in postoperative state. (2) Diabetes mellitus with ulcer of ankle Current Visit: Yes Status: Acute Plan to address problem: S/P R.AKA POD 3. Appropriate wound care. Will follow up on further surgical recommendations. (3) Osteomyelitis Current Visit: No Status: Chronic Qualifiers: Osteomyelitis type: subacute Osteomyelitis location: foot Plan to address problem: s/p antibiotics without appropriate response. S/P R. AKA POD 3 (4) Hypertensive chronic kidney disease with stage 5 chronic kidney disease or end stage renal disease Current Visit: No Status: Chronic Plan to address problem: Continue on current regimen and will monitor closely. (5) Type 2 diabetes mellitus with diabetic chronic kidney disease Current Visit: No Status: Chronic Qualifiers: Chronic kidney disease stage: stage 4 (severe) Plan to address problem: DM management per primary team. Subjective Date of service: 08/18/18 Principal diagnosis: post amputation. Interval history: No acute issues overnight. Labs noted, Renal function is stable. Appetite slowly improving. Objective - Vital Signs Vital signs: Vital Signs - 12hr 08/18/18 08/18/18 08/18/18 00:37 00:41 05:35 Temperature 98.0 F 97.7 F 97.8 F Pulse Rate 96 H 94 H 84 Respiratory 18 18 18 Rate Blood Pressure 141/77 114/84 134/69 O2 Sat by Pulse 100 98 100 Oximetry - General Appearance General appearance: appears stated age, cachectic, frail EENT: ATNC, PERRL Neck: no JVD, no thyromegaly Respiratory: Present: Clear to Ascultation Cardiology: regular, S1S2 Gastrointestinal: normal, normoactive bowel sounds Integumentary: ulcer Neurologic: no focal deficit Musculoskeletal: other (R. AKA, Left TMA ) Psychiatric: mood/affect appropriate, cooperative - Lab 08/18/18 05:03 08/18/18 05:03 Most recent lab results Calcium 6.4 mg/dL (8.4-10.2) L 08/18/18 05:03 - Allied health notes Allied health notes reviewed: nursing Medications & Allergies - Medications Allergies/Adverse Reactions: Allergies No Known Allergies Allergy (Verified 01/18/18 20:10) Home Medications: Home Medications Medication Instructions Recorded Confirmed Last Taken Type Acetaminophen [Acetaminophen TAB] 650 mg PO Q4H PRN 03/12/18 07/19/18 Unknown History Calcium Acetate [Phoslo] 667 mg PO TID 03/12/18 07/19/18 05/13/18 17:00 History Carvedilol [Coreg] 6.25 mg PO BID 03/12/18 07/19/18 05/13/18 09:00 History Ergocalciferol 50,000 unit PO QWEEK 03/12/18 07/19/18 05/11/18 09:00 History Flomax 0.4 mg PO HS 03/12/18 07/19/18 05/13/18 09:00 History Insulin Aspart [NovoLOG Flexpen] See Protocol SQ TID 03/12/18 07/19/18 05/13/18 History Loperamide [Imodium] 4 mg PO PRN PRN 03/12/18 07/19/18 Unknown History Active Medications: Generic Name Dose Route Start Last Admin Trade Name Freq PRN Reason Stop Dose Admin Apixaban 2.5 mg 08/16/18 22:00 08/18/18 10:45 Eliquis PO 2.5 mg BID KIRSTEN Administration Sodium Chloride 1,000 mls @ 75 mls/hr 08/15/18 13:00 08/17/18 14:27 Nacl 0.9% 1000 Ml IV 75 mls/hr DIRECT KIRSTEN Administration
--- NOTE | 2018-08-18 19:54 | Progress Note ---
Assessment and Plan - Patient Problems (1) Diabetes mellitus with ulcer of ankle Current Visit: Yes Status: Acute Plan to address problem: control BG. post amputation. POD#2 POD#3, and doing ok. (2) Diabetes with skin complication Current Visit: Yes Status: Acute Plan to address problem: skin care. (3) Acute deep vein thrombosis (DVT) of right lower extremity Current Visit: No Status: Acute Plan to address problem: resume Eliquis, once safe.ie post surgery,if tomorrow, otherwise, resume ARPIT until surgery ready. post amputation. (4) Acute encephalopathy Current Visit: No Status: Acute Plan to address problem: supportive care (5) Debility, unspecified Current Visit: No Status: Acute Plan to address problem: supportive care Subjective Date of service: 08/18/18 Principal diagnosis: post amputation. Interval history: Patient seen earlier, post amputation, resting ok, labs/records reviewed, as well as notes.will follow surgery, nutrition support. consult nutrition service. Patient seen, resting in bed, post op day1of right ankle amputation. He is very malnourished, and had, and continues to refuse peg tube feeding. I had discussed this with his daughter before, and she was deferring decision to him.will resume eliquis, and start TPt for mean time. i am speaking to the police patrol lieutenant this moment. patient seen/examined, resting in bed, no new issues at this. patient seen/examined, resting in bed, labs reviewed, NAD.He will need knee prostheses, the can d/c back to the NH.Will do physiscal therapy in bed. Objective - Constitutional Vitals: Vital Signs - 12hr 08/18/18 13:15 Temperature 97.6 F Pulse Rate 100 H Respiratory 18 Rate Blood Pressure 140/81 O2 Sat by Pulse 90 Oximetry General appearance: Present: no acute distress, cachectic - EENT Eyes: PERRL, EOM intact ENT: hearing intact, clear oral mucosa Ears: bilateral: normal - Neck Neck: supple, normal ROM - Respiratory Respiratory effort: normal Respiratory: bilateral: CTA - Breasts Breasts: deferred - Cardiovascular Rhythm: regular Heart Sounds: Present: S1 & S2. Absent: gallop, rub Extremities: pulses intact, No edema, normal color, Full ROM - Gastrointestinal General gastrointestinal: Present: soft, non-tender, non-distended, normal bowel sounds Rectal Exam: deferred - Genitourinary Male genitourinary: deferred - Integumentary Integumentary: clear, warm, dry - Musculoskeletal Musculoskeletal: 1, strength equal bilaterally - Neurologic Neurologic: moves all extremities - Psychiatric Psychiatric: appropriate mood/affect, intact judgment & insight - Labs CBC & Chem 7: 08/18/18 05:03 08/18/18 05:03 Labs: Abnormal lab results 08/18/18 08/18/18 Range/Units 05:03 05:03 WBC 3.6 L (4.5-11.0) K/mm3 RBC 3.01 L (3.65-5.03) M/mm3 Hgb 8.8 L (11.8-15.2) gm/dl Hct 27.8 L (35.5-45.6) % RDW 20.0 H (13.2-15.2) % Chloride 111.6 H (98-107) mmol/L Carbon Dioxide 19 L (22-30) mmol/L BUN 41 H (9-20) mg/dL Creatinine 2.0 H (0.8-1.5) mg/dL Glucose 66 L (75-100) mg/dL Calcium 6.4 L (8.4-10.2) mg/dL Medications & Allergies - Medications Allergies/Adverse Reactions: Allergies No Known Allergies Allergy (Verified 01/18/18 20:10) Home Medications: Home Medications Medication Instructions Recorded Confirmed Last Taken Type Acetaminophen [Acetaminophen TAB] 650 mg PO Q4H PRN 03/12/18 07/19/18 Unknown History Calcium Acetate [Phoslo] 667 mg PO TID 03/12/18 07/19/18 05/13/18 17:00 History Carvedilol [Coreg] 6.25 mg PO BID 03/12/18 07/19/18 05/13/18 09:00 History Ergocalciferol 50,000 unit PO QWEEK 03/12/18 07/19/18 05/11/18 09:00 History Flomax 0.4 mg PO HS 03/12/18 07/19/18 05/13/18 09:00 History Insulin Aspart [NovoLOG Flexpen] See Protocol SQ TID 03/12/18 07/19/18 05/13/18 History Loperamide [Imodium] 4 mg PO PRN PRN 03/12/18 07/19/18 Unknown History Active Medications: Generic Name Dose Route Start Last Admin Trade Name Freq PRN Reason Stop Dose Admin Apixaban 2.5 mg 08/16/18 22:00 08/18/18 10:45 Eliquis PO 2.5 mg BID KIRSTEN Administration Sodium Chloride 1,000 mls @ 75 mls/hr 08/15/18 13:00 08/17/18 14:27 Nacl 0.9% 1000 Ml IV 75 mls/hr DIRECT KIRSTEN Administration
[2018-08-18] MEDS: HumaLOG SUB-Q SCH (21:40)
[2018-08-18] MEDS: D5NS 1,000 ML IV SCH (21:42)
[2018-08-19] MEDS: D5NS 1,000 ML IV SCH ×2 (06:40→16:25)
[2018-08-19] MEDS: HumaLOG SUB-Q SCH ×4 (09:26→22:22)
[2018-08-19] MEDS: ELIQUIS PO SCH ×2 (09:28→22:23)
--- NOTE | 2018-08-19 11:30 | Progress Note ---
Assessment and Plan - Patient Problems (1) CKD (chronic kidney disease) stage 4, GFR 15-29 ml/min Current Visit: Yes Status: Acute Plan to address problem: Labs pending this am, but overall his renal function and clearance have been stable and we will continue to hold off on HD at this time. Will monitor renal function closely especially in postoperative state. (2) Diabetes mellitus with ulcer of ankle Current Visit: Yes Status: Acute Plan to address problem: S/P R.AKA POD 4. Appropriate wound care. Will follow up on further surgical recommendations. (3) Osteomyelitis Current Visit: No Status: Chronic Qualifiers: Osteomyelitis type: subacute Osteomyelitis location: foot Plan to address problem: s/p antibiotics without appropriate response. S/P R. AKA POD 4 (4) Hypertensive chronic kidney disease with stage 5 chronic kidney disease or end stage renal disease Current Visit: No Status: Chronic Plan to address problem: Continue on current regimen and will monitor closely. (5) Type 2 diabetes mellitus with diabetic chronic kidney disease Current Visit: No Status: Chronic Qualifiers: Chronic kidney disease stage: stage 4 (severe) Plan to address problem: DM management per primary team. Subjective Date of service: 08/19/18 Principal diagnosis: post amputation. Interval history: No acute issues this morning. No new labs. Vital signs are stable. Objective - Vital Signs Vital signs: Vital Signs - 12hr 08/19/18 05:34 Temperature 98.2 F Pulse Rate 89 Respiratory 20 Rate Blood Pressure 127/70 O2 Sat by Pulse 100 Oximetry - General Appearance General appearance: appears stated age, cachectic, chronically ill, frail EENT: ATNC, PERRL Neck: no JVD, no thyromegaly Respiratory: Present: Clear to Ascultation, Normal Exam Cardiology: regular, normal heart rate, S1S2 Gastrointestinal: normal, normoactive bowel sounds Integumentary: no rash, warm and dry Neurologic: no focal deficit Psychiatric: mood/affect appropriate, cooperative - Lab 08/18/18 05:03 08/18/18 05:03 Most recent lab results Calcium 6.4 mg/dL (8.4-10.2) L 08/18/18 05:03 - Allied health notes Allied health notes reviewed: nursing Medications & Allergies - Medications Allergies/Adverse Reactions: Allergies No Known Allergies Allergy (Verified 01/18/18 20:10) Home Medications: Home Medications Medication Instructions Recorded Confirmed Last Taken Type Acetaminophen [Acetaminophen TAB] 650 mg PO Q4H PRN 03/12/18 07/19/18 Unknown History Calcium Acetate [Phoslo] 667 mg PO TID 03/12/18 07/19/18 05/13/18 17:00 History Carvedilol [Coreg] 6.25 mg PO BID 03/12/18 07/19/18 05/13/18 09:00 History Ergocalciferol 50,000 unit PO QWEEK 03/12/18 07/19/18 05/11/18 09:00 History Flomax 0.4 mg PO HS 03/12/18 07/19/18 05/13/18 09:00 History Insulin Aspart [NovoLOG Flexpen] See Protocol SQ TID 03/12/18 07/19/18 05/13/18 History Loperamide [Imodium] 4 mg PO PRN PRN 03/12/18 07/19/18 Unknown History Active Medications: Generic Name Dose Route Start Last Admin Trade Name Kristen PRN Reason Stop Dose Admin Apixaban 2.5 mg 08/16/18 22:00 08/19/18 09:28 Eliquis PO 2.5 mg BID KIRSTEN Administration Dextrose/Sodium Chloride 1,000 mls @ 125 mls/hr 08/18/18 21:00 08/19/18 06:40 D5ns IV 125 mls/hr DIRECT KIRSTEN Administration Insulin Human Lispro 0 unit 08/18/18 22:00 08/19/18 11:17 Humalog SUB-Q Not Given ACHS KIRSTEN Protocol
--- NOTE | 2018-08-19 14:44 | Progress Note ---
Assessment and Plan - Patient Problems (1) Diabetes mellitus with ulcer of ankle Current Visit: Yes Status: Acute Plan to address problem: control BG. post amputation. POD#2 POD#3, and doing ok. POD#4 (2) Diabetes with skin complication Current Visit: Yes Status: Acute Plan to address problem: skin care. (3) Acute deep vein thrombosis (DVT) of right lower extremity Current Visit: No Status: Acute Plan to address problem: resume Eliquis, once safe.ie post surgery,if tomorrow, otherwise, resume ARPIT until surgery ready. post amputation. (4) Acute encephalopathy Current Visit: No Status: Acute Plan to address problem: supportive care (5) Debility, unspecified Current Visit: No Status: Acute Plan to address problem: supportive care Subjective Date of service: 08/19/18 Principal diagnosis: post amputation. Interval history: Patient seen earlier, post amputation, resting ok, labs/records reviewed, as well as notes.will follow surgery, nutrition support. consult nutrition service. Patient seen, resting in bed, post op day1of right ankle amputation. He is very malnourished, and had, and continues to refuse peg tube feeding. I had discussed this with his daughter before, and she was deferring decision to him.will resume eliquis, and start TPt for mean time. i am speaking to the channel layer this moment. patient seen/examined, resting in bed, no new issues at this. patient seen/examined, resting in bed, labs reviewed, NAD.He will need knee prostheses, the can d/c back to the NH.Will do physiscal therapy in bed. Patient seen/examined, resting in bed, labs reviewed. Objective - Constitutional Vitals: Vital Signs - 12hr 08/19/18 08/19/18 05:34 11:59 Temperature 98.2 F 97.8 F Pulse Rate 89 95 H Respiratory 20 16 Rate Blood Pressure 127/70 137/78 O2 Sat by Pulse 100 100 Oximetry General appearance: Present: no acute distress, cachectic - EENT Eyes: PERRL, EOM intact ENT: hearing intact, clear oral mucosa Ears: bilateral: normal - Neck Neck: supple, normal ROM - Respiratory Respiratory effort: normal Respiratory: bilateral: CTA - Breasts Breasts: deferred - Cardiovascular Rhythm: regular Heart Sounds: Present: S1 & S2. Absent: gallop, rub Extremities: pulses intact, No edema, normal color, Full ROM - Gastrointestinal General gastrointestinal: Present: soft, non-tender, non-distended, normal bowel sounds Rectal Exam: deferred - Genitourinary Male genitourinary: deferred - Integumentary Integumentary: clear, warm, dry - Musculoskeletal Musculoskeletal: 1, strength equal bilaterally - Neurologic Neurologic: moves all extremities - Psychiatric Psychiatric: appropriate mood/affect, intact judgment & insight, memory intact - Labs CBC & Chem 7: 08/18/18 05:03 08/18/18 05:03 Labs: Abnormal lab results 08/19/18 08/19/18 Range/Units 09:10 11:16 POC Glucose 108 H 118 H (70-105) Medications & Allergies - Medications Allergies/Adverse Reactions: Allergies No Known Allergies Allergy (Verified 01/18/18 20:10) Home Medications: Home Medications Medication Instructions Recorded Confirmed Last Taken Type Acetaminophen [Acetaminophen TAB] 650 mg PO Q4H PRN 03/12/18 07/19/18 Unknown History Calcium Acetate [Phoslo] 667 mg PO TID 03/12/18 07/19/18 05/13/18 17:00 History Carvedilol [Coreg] 6.25 mg PO BID 03/12/18 07/19/18 05/13/18 09:00 History Ergocalciferol 50,000 unit PO QWEEK 03/12/18 07/19/18 05/11/18 09:00 History Flomax 0.4 mg PO HS 03/12/18 07/19/18 05/13/18 09:00 History Insulin Aspart [NovoLOG Flexpen] See Protocol SQ TID 03/12/18 07/19/18 05/13/18 History Loperamide [Imodium] 4 mg PO PRN PRN 03/12/18 07/19/18 Unknown History Active Medications: Generic Name Dose Route Start Last Admin Trade Name Freq PRN Reason Stop Dose Admin Apixaban 2.5 mg 08/16/18 22:00 08/19/18 09:28 Eliquis PO 2.5 mg BID KIRSTEN Administration Dextrose/Sodium Chloride 1,000 mls @ 125 mls/hr 08/18/18 21:00 08/19/18 06:40 D5ns IV 125 mls/hr DIRECT KIRSTEN Administration Insulin Human Lispro 0 unit 08/18/18 22:00 08/19/18 11:17 Humalog SUB-Q Not Given ACHS KIRSTEN Protocol Sodium Bicarbonate 650 mg 08/19/18 22:00 Sodium Bicarbonate PO BID KIRSTEN
[2018-08-19] MEDS: SODIUM BICARBONATE PO SCH (22:23)
[2018-08-20] MEDS: D5NS 1,000 ML IV SCH ×3 (01:33→20:28)
[2018-08-20 05:59] LABS: Eosinophils # (Auto) 0.1 K/mm3 (0.0-0.4); Eosinophils % (Auto) 2.8 % (0.0-4.3); Hematocrit 26.3 % (35.5-45.6); Lymphocytes # (Auto) 0.7 K/mm3 (1.2-5.4); Lymphocytes % (Auto) 24.9 % (13.4-35.0); Mean Corpuscular HGB Conc 31 % (32-34); Mean Corpuscular Volume 94 fl (84-94); Monocytes # (Auto) 0.2 K/mm3 (0.0-0.8); Monocytes % (Auto) 6.4 % (0.0-7.3); Platelet Count 235 K/mm3 (140-440)
[2018-08-20 06:07] LABS: Red Cell Distribution Width 20.5 % (13.2-15.2)
[2018-08-20 07:00] LABS: Calcium 6.2 mg/dL (8.4-10.2)
[2018-08-20] MEDS: HumaLOG SUB-Q SCH ×4 (07:30→22:24)
[2018-08-20] MEDS: ELIQUIS PO SCH ×2 (10:55→21:39)
[2018-08-20] MEDS: SODIUM BICARBONATE PO SCH ×2 (10:55→21:39)
--- NOTE | 2018-08-20 12:31 | Progress Note ---
Assessment and Plan - Patient Problems (1) CKD (chronic kidney disease) stage 4, GFR 15-29 ml/min Current Visit: Yes Status: Acute Plan to address problem: Labs noted this am, overall renal function and clearance have been stable and we will continue to hold off on HD at this time. Will monitor renal function closely. (2) Diabetes mellitus with ulcer of ankle Current Visit: Yes Status: Acute Plan to address problem: S/P R.AKA POD 5. Appropriate wound care. Will follow up on further surgical recommendations. (3) Osteomyelitis Current Visit: No Status: Chronic Qualifiers: Osteomyelitis type: subacute Osteomyelitis location: foot Plan to address problem: s/p antibiotics without appropriate response. S/P R. AKA POD 5 (4) Hypertensive chronic kidney disease with stage 5 chronic kidney disease or end stage renal disease Current Visit: No Status: Chronic Plan to address problem: Continue on current regimen and will monitor closely. (5) Type 2 diabetes mellitus with diabetic chronic kidney disease Current Visit: No Status: Chronic Qualifiers: Chronic kidney disease stage: stage 4 (severe) Plan to address problem: DM management per primary team. Subjective Date of service: 08/20/18 Principal diagnosis: post amputation. Interval history: No acute changes overnight. Renal function is improving. Objective - Vital Signs Vital signs: Vital Signs - 12hr 08/20/18 06:20 Temperature 98.5 F Pulse Rate 92 H Respiratory 18 Rate Blood Pressure 131/73 O2 Sat by Pulse 100 Oximetry - General Appearance General appearance: appears stated age, cachectic, chronically ill, frail EENT: ATNC, PERRL Neck: no JVD, no thyromegaly Respiratory: Present: Clear to Ascultation, Normal Exam Cardiology: regular, S1S2 Gastrointestinal: normal, normoactive bowel sounds Integumentary: warm and dry Neurologic: no focal deficit Musculoskeletal: other (R AKA and Left TMA) Psychiatric: cooperative - Lab 08/20/18 05:30 08/20/18 05:30 Most recent lab results Calcium 6.2 mg/dL (8.4-10.2) L 08/20/18 05:30 - Allied health notes Allied health notes reviewed: nursing Medications & Allergies - Medications Allergies/Adverse Reactions: Allergies No Known Allergies Allergy (Verified 01/18/18 20:10) Home Medications: Home Medications Medication Instructions Recorded Confirmed Last Taken Type Acetaminophen [Acetaminophen TAB] 650 mg PO Q4H PRN 03/12/18 07/19/18 Unknown History Calcium Acetate [Phoslo] 667 mg PO TID 03/12/18 07/19/18 05/13/18 17:00 History Carvedilol [Coreg] 6.25 mg PO BID 03/12/18 07/19/18 05/13/18 09:00 History Ergocalciferol 50,000 unit PO QWEEK 03/12/18 07/19/18 05/11/18 09:00 History Flomax 0.4 mg PO HS 03/12/18 07/19/18 05/13/18 09:00 History Insulin Aspart [NovoLOG Flexpen] See Protocol SQ TID 03/12/18 07/19/18 05/13/18 History Loperamide [Imodium] 4 mg PO PRN PRN 03/12/18 07/19/18 Unknown History Active Medications: Generic Name Dose Route Start Last Admin Trade Name Freq PRN Reason Stop Dose Admin Apixaban 2.5 mg 08/16/18 22:00 08/20/18 10:55 Eliquis PO 2.5 mg BID KIRSTEN Administration Dextrose/Sodium Chloride 1,000 mls @ 125 mls/hr 08/18/18 21:00 08/20/18 10:26 D5ns IV 125 mls/hr DIRECT KIRSTEN Administration Insulin Human Lispro 0 unit 08/18/18 22:00 08/20/18 07:30 Humalog SUB-Q Not Given ACHS KIRSTEN Protocol Sodium Bicarbonate 650 mg 08/19/18 22:00 08/20/18 10:55 Sodium Bicarbonate PO 650 mg BID KIRSTEN Administration
[2018-08-20] MEDS ORDERED: ULTRAM PO PRN (12:36)
--- NOTE | 2018-08-20 17:59 | Progress Note ---
Assessment and Plan - Patient Problems (1) Diabetes mellitus with ulcer of ankle Current Visit: Yes Status: Acute Plan to address problem: control BG. post amputation. POD#2 POD#3, and doing ok. POD#4 POD#5 (2) Diabetes with skin complication Current Visit: Yes Status: Acute Plan to address problem: skin care. (3) Acute deep vein thrombosis (DVT) of right lower extremity Current Visit: No Status: Acute Plan to address problem: resume Eliquis, once safe.ie post surgery,if tomorrow, otherwise, resume ARPIT until surgery ready. post amputation. (4) Acute encephalopathy Current Visit: No Status: Acute Plan to address problem: supportive care (5) Debility, unspecified Current Visit: No Status: Acute Plan to address problem: supportive care (6) SIRS without acute organ dysfunction due to infectious process Current Visit: Yes Status: Acute Plan to address problem: continue with current management. Subjective Date of service: 08/20/18 Principal diagnosis: post amputation. Interval history: Patient seen earlier, post amputation, resting ok, labs/records reviewed, as well as notes.will follow surgery, nutrition support. consult nutrition service. Patient seen, resting in bed, post op day1of right ankle amputation. He is very malnourished, and had, and continues to refuse peg tube feeding. I had discussed this with his daughter before, and she was deferring decision to him.will resume eliquis, and start TPt for mean time. 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 patient seen/examined, resting in bed, no new issues at this. patient seen/examined, resting in bed, labs reviewed, NAD.He will need knee prostheses, the can d/c back to the [place].Will do physiscal therapy in bed. Patient seen/examined, resting in bed, labs reviewed. Patient seen/examined, resting in bed, labs reviewed, wbc coming down to 2.9 from 3.6, hgb 8.0 will recheck labs tomorrow, and plan on d/c if ok. Since he had AKA, he does not need any prostheses. Objective - Constitutional Vitals: Vital Signs - 12hr 08/20/18 06:20 Temperature 98.5 F Pulse Rate 92 H Respiratory 18 Rate Blood Pressure 131/73 O2 Sat by Pulse 100 Oximetry General appearance: Present: no acute distress, cachectic - EENT Eyes: PERRL, EOM intact ENT: hearing intact, clear oral mucosa Ears: bilateral: normal - Neck Neck: supple, normal ROM - Respiratory Respiratory effort: normal Respiratory: bilateral: CTA - Breasts Breasts: deferred - Cardiovascular Rhythm: regular Heart Sounds: Present: S1 & S2. Absent: gallop, rub Extremities: pulses intact, No edema, normal color, Full ROM - Gastrointestinal General gastrointestinal: Present: soft, non-tender, non-distended, normal bowel sounds Rectal Exam: deferred - Genitourinary Male genitourinary: deferred - Integumentary Integumentary: clear, warm, dry - Musculoskeletal Musculoskeletal: 1, strength equal bilaterally - Neurologic Neurologic: moves all extremities - Psychiatric Psychiatric: memory intact, appropriate mood/affect, intact judgment & insight - Labs CBC & Chem 7: 08/20/18 05:30 08/20/18 05:30 Labs: Abnormal lab results 08/19/18 08/20/18 08/20/18 Range/Units 21:32 05:30 05:30 WBC 2.9 L (4.5-11.0) K/mm3 RBC 2.80 L (3.65-5.03) M/mm3 Hgb 8.0 L (11.8-15.2) gm/dl Hct 26.3 L (35.5-45.6) % MCHC 31 L (32-34) % RDW 20.5 H (13.2-15.2) % Lymph # 0.7 L (1.2-5.4) K/mm3 Chloride 119.4 H (98-107) mmol/L Carbon Dioxide 18 L (22-30) mmol/L BUN 33 H (9-20) mg/dL Creatinine 1.7 H (0.8-1.5) mg/dL Glucose 221 H (75-100) mg/dL POC Glucose 174 H (70-105) Calcium 6.2 L (8.4-10.2) mg/dL Medications & Allergies - Medications Allergies/Adverse Reactions: Allergies No Known Allergies Allergy (Verified 01/18/18 20:10) Home Medications: Home Medications Medication Instructions Recorded Confirmed Last Taken Type Acetaminophen [Acetaminophen TAB] 650 mg PO Q4H PRN 03/12/18 07/19/18 Unknown History Calcium Acetate [Phoslo] 667 mg PO TID 03/12/18 07/19/18 05/13/18 17:00 History Carvedilol [Coreg] 6.25 mg PO BID 03/12/18 07/19/18 05/13/18 09:00 History Ergocalciferol 50,000 unit PO QWEEK 03/12/18 07/19/18 05/11/18 09:00 History Flomax 0.4 mg PO HS 03/12/18 07/19/18 05/13/18 09:00 History Insulin Aspart [NovoLOG Flexpen] See Protocol SQ TID 03/12/18 07/19/18 05/13/18 History Loperamide [Imodium] 4 mg PO PRN PRN 03/12/18 07/19/18 Unknown History Active Medications: Generic Name Dose Route Start Last Admin Trade Name Freq PRN Reason Stop Dose Admin Apixaban 2.5 mg 08/16/18 22:00 08/20/18 10:55 Eliquis PO 2.5 mg BID KIRSTEN Administration Dextrose/Sodium Chloride 1,000 mls @ 125 mls/hr 08/18/18 21:00 08/20/18 10:26 D5ns IV 125 mls/hr DIRECT KIRSTEN Administration Insulin Human Lispro 0 unit 08/18/18 22:00 08/20/18 13:00 Humalog SUB-Q Not Given ACHS KIRSTEN Protocol Sodium Bicarbonate 650 mg 08/19/18 22:00 08/20/18 10:55 Sodium Bicarbonate PO 650 mg BID KIRSTEN Administration Tramadol HCl 25 mg 08/20/18 12:36 08/20/18 13:11 Ultram PO 25 mg Q12H PRN Administration Pain, Moderate (4-6)
[2018-08-21] MEDS: D5NS 1,000 ML IV SCH (04:55)
[2018-08-21] MEDS: HumaLOG SUB-Q SCH ×3 (07:30→18:01)
--- NOTE | 2018-08-21 10:47 | Progress Note ---
Assessment and Plan - Patient Problems (1) Chronic kidney disease, stage III (moderate) Current Visit: Yes Status: Chronic Plan to address problem: Labs noted, renal function and clearance have been stable and we will continue to hold off on HD at this time. Will monitor renal function. (2) Diabetes mellitus with ulcer of ankle Current Visit: Yes Status: Acute Plan to address problem: S/P R.AKA POD 6. Appropriate wound care. Will follow up on further surgical recommendations. (3) Osteomyelitis Current Visit: No Status: Chronic Qualifiers: Osteomyelitis type: subacute Osteomyelitis location: foot Plan to address problem: s/p antibiotics without appropriate response. S/P R. AKA POD 6 (4) Hypertension Current Visit: No Status: Chronic Qualifiers: Hypertension type: essential hypertension Qualified Code(s): I10 - Essential (primary) hypertension Plan to address problem: Continue on current regimen and will monitor closely. (5) Type 2 diabetes mellitus with diabetic nephropathy Current Visit: No Status: Acute Plan to address problem: DM management per primary team. Subjective Date of service: 08/21/18 Principal diagnosis: post amputation. Interval history: Pt in no acute distress, no interval events reported. Objective - Vital Signs Vital signs: Vital Signs - 12hr 08/20/18 08/21/18 23:43 06:45 Temperature 97.8 F 99.2 F Pulse Rate 98 H 99 H Respiratory 20 20 Rate Blood Pressure 146/81 145/80 O2 Sat by Pulse 99 100 Oximetry - General Appearance General appearance: appears stated age, chronically ill EENT: ATNC, PERRL, mucous membranes moist Neck: no JVD Respiratory: Present: Clear to Ascultation Cardiology: regular, S1S2 Gastrointestinal: normoactive bowel sounds Integumentary: no rash, other (no edema ) Neurologic: no focal deficit, alert and oriented x3, strength 5/5, CN 3-12 intact - Lab 08/20/18 05:30 08/20/18 05:30 Most recent lab results Calcium 6.2 mg/dL (8.4-10.2) L 08/20/18 05:30 Medications & Allergies - Medications Allergies/Adverse Reactions: Allergies No Known Allergies Allergy (Verified 01/18/18 20:10) Home Medications: Home Medications Medication Instructions Recorded Confirmed Last Taken Type Acetaminophen [Acetaminophen TAB] 650 mg PO Q4H PRN 03/12/18 07/19/18 Unknown History Calcium Acetate [Phoslo] 667 mg PO TID 03/12/18 07/19/18 05/13/18 17:00 History Carvedilol [Coreg] 6.25 mg PO BID 03/12/18 07/19/18 05/13/18 09:00 History Ergocalciferol 50,000 unit PO QWEEK 03/12/18 07/19/18 05/11/18 09:00 History Flomax 0.4 mg PO HS 03/12/18 07/19/18 05/13/18 09:00 History Insulin Aspart [NovoLOG Flexpen] See Protocol SQ TID 03/12/18 07/19/18 05/13/18 History Loperamide [Imodium] 4 mg PO PRN PRN 03/12/18 07/19/18 Unknown History Active Medications: Generic Name Dose Route Start Last Admin Trade Name Freq PRN Reason Stop Dose Admin Apixaban 2.5 mg 08/16/18 22:00 08/20/18 21:39 Eliquis PO 2.5 mg BID KIRSTEN Administration Dextrose/Sodium Chloride 1,000 mls @ 125 mls/hr 08/18/18 21:00 08/21/18 04:55 D5ns IV 125 mls/hr DIRECT KIRSTEN Administration Insulin Human Lispro 0 unit 08/18/18 22:00 08/20/18 22:24 Humalog SUB-Q 3 unit ACHS KIRSTEN Administration Protocol Sodium Bicarbonate 650 mg 08/19/18 22:00 08/20/18 21:39 Sodium Bicarbonate PO 650 mg BID KIRSTEN Administration Tramadol HCl 25 mg 08/20/18 12:36 08/20/18 13:11 Ultram PO 25 mg Q12H PRN Administration Pain, Moderate (4-6)
[2018-08-21] MEDS: SODIUM BICARBONATE PO SCH (11:23)
[2018-08-21] MEDS: ELIQUIS PO SCH (11:24)
--- NOTE | 2018-08-21 13:56 | Progress Note ---
Assessment and Plan - Patient Problems (1) Diabetes with skin complication Current Visit: Yes Status: Acute Plan to address problem: 1) Local wound care to his left anterior leg. (2) Diabetes mellitus with ulcer of ankle Current Visit: Yes Status: Acute (3) Severe protein-calorie malnutrition Current Visit: Yes Status: Acute Plan to address problem: 1) I talked this problem over with is daughter. She will try to convince the pt of his need for a PEG tube. Subjective Date of service: 08/21/18 Patient Reports: Positive: no new complaints (Pt ate <10% of his lunch. He again adamantly refuses PEG placement.) Objective Vital Signs - 12hr 08/21/18 06:45 Temperature 99.2 F Pulse Rate 99 H Respiratory 20 Rate Blood Pressure 145/80 O2 Sat by Pulse 100 Oximetry - Integumentary other (Right AKA stump is healing nicely. There is a 1 X 0.7 X 0.4 cm loose eschar on his left anterior leg. This was surgically debrided with scissors down to clean SQ tissue.) - Labs 08/20/18 05:30 08/20/18 05:30
[2018-08-21 14:26] LABS: Basophils # (Auto) 0.1 K/mm3 (0.0-0.1); Basophils % (Auto) 1.3 % (0.0-1.8); Eosinophils # (Auto) 0.1 K/mm3 (0.0-0.4); Eosinophils % (Auto) 3.1 % (0.0-4.3); Hematocrit 30.6 % (35.5-45.6); Hemoglobin 9.5 gm/dl (11.8-15.2); Lymphocytes # (Auto) 1.1 K/mm3 (1.2-5.4); Lymphocytes % (Auto) 26.8 % (13.4-35.0); Mean Corpuscular HGB Conc 31 % (32-34); Mean Corpuscular Volume 93 fl (84-94); Monocytes # (Auto) 0.3 K/mm3 (0.0-0.8); Monocytes % (Auto) 7.9 % (0.0-7.3); Platelet Count 257 K/mm3 (140-440); Red Cell Distribution Width 20.8 % (13.2-15.2)
[2018-08-21 15:33] LABS: Calcium 6.5 mg/dL (8.4-10.2)
[2018-08-21 18:01] VITALS: BP 144/83
--- NOTE | 2018-08-21 18:51 | Discharge Summary ---
Providers - Providers Date of Admission: 08/14/18 11:08 Date of discharge: 08/21/18 Attending physician: KATTY SLATER 08/14/18 13:02 Consult to Physician [CONS] Routine Comment: Consulting Provider: GARCIA OSBORN Physician Instructions: Reason For Exam: esrd, pt known to you 08/14/18 13:04 Consult to Physician [CONS] Routine Comment: Consulting Provider: RONNIE LAY Physician Instructions: Reason For Exam: right ankle osteomyelitis, you sent over 08/14/18 20:55 Consult to Wound/ET Nurse [CONS] Routine Reason For Exam: wound eval 08/16/18 00:13 Consult to Dietitian/Nutrition [CONS] Routine Physician Instructions: Reason For Exam: Reason for Consult: Malnutrition 08/16/18 15:18 Speech Therapy Evaluation and Treat [CONS] Routine Reason For Exam: pt. not eating. 08/20/18 16:46 Consult to Physician [CONS] Routine Comment: Consulting Provider: KATTY SLATER Physician Instructions: Reason For Exam: rt hip and sacral area Primary care physician: KATTY SLATER Hospitalization Procedures: Right AKA. Hospital course: [place] via [facility] [place] [facility], and admitted for right leg amputation. After a lema discussion, with patient, he finally agreed to the surgery. He did fairly well post op, the remaining of his hospital stay. He has chronic poor oral intake, and hence poor nutrition. He tries some times to eat better, but for the most time, he will not eat as much as we desire him to. He has over, and repeatedly, and adamantly,refused peg tube , despite every effort to persuade him . He states, that he will eat better when he gets bacl to the [place].He is examined, and remains stable, case d/w him, and is willing to go back today.He will be d/c with PT/wound care at the [place].He will be transported by EMS. Disposition: [id number] - Discharge Diagnoses (1) Diabetes mellitus with ulcer of ankle Status: Chronic (2) Diabetes with skin complication Status: Chronic (3) Acute deep vein thrombosis (DVT) of right lower extremity Status: Chronic (4) Acute encephalopathy Status: Chronic (5) Debility, unspecified Status: Chronic (6) SIRS without acute organ dysfunction due to infectious process Status: Resolved Core Measure Documentation - Palliative Care Palliative Care/ Comfort Measures: Hospice Care (at the [facility], as he was prior to this admission.) - Core Measures Any of the following diagnoses?: history only (He was on eliquis, and going back with this.) Exam - Constitutional Vitals: Temp Pulse Resp BP Pulse Ox 97.9 F 102 H 18 144/83 99 08/21/18 17:37 08/21/18 17:37 08/21/18 17:37 08/21/18 17:37 08/21/18 17:37 General appearance: Present: no acute distress, cachectic - EENT Eyes: Present: PERRL ENT: hearing intact, clear oral mucosa - Neck Neck: Present: supple, normal ROM - Respiratory Respiratory effort: normal Respiratory: bilateral: CTA - Cardiovascular Heart Sounds: Present: S1 & S2. Absent: rub, click - Extremities Extremities: pulses symmetrical, No edema Peripheral Pulses: within normal limits - Abdominal General gastrointestinal: Present: soft, non-tender, non-distended, normal bowel sounds Male genitourinary: Present: deferred - Rectal Rectal Exam: deferred - Integumentary Integumentary: Present: clear, warm, dry - Musculoskeletal Musculoskeletal: gait normal, strength equal bilaterally - Psychiatric Psychiatric: appropriate mood/affect, intact judgment & insight - Neurologic Neurologic: CNII-XII intact, moves all extremities Plan Activity: up only with assistance, fall precautions Weight Bearing Status: Non-Weight Bearing Diet: diabetic Wound: change dressing, per wound nurse instructions Follow up with: KATTY SLATER DO [Primary Care Provider] - 7 Days
== END 2018-08-21 21:21 | DRG 616 ==
LOC: 3A 09:15 → UNDOADMIN 09:15 → 3A 11:08
PROVIDERS: ADMIT Internal Medicine; ATTEND Internal Medicine Hematology & Oncology
PROC: 0Y6C0Z3 Detachment at Right Upper Leg, Low, Open Approach (ICD-10-PCS; principal; 2018-08-15)
DX: E11.69 Type 2 diabetes mellitus with other specified complication (principal); E43 Unspecified severe protein-calorie malnutrition; L97.319 Non-pressure chronic ulcer of right ankle with unspecified severity; G93.40 Encephalopathy, unspecified; R65.10 Systemic inflammatory response syndrome (SIRS) of non-infectious origin without acute organ dysfunction; M86.271 Subacute osteomyelitis, right ankle and foot; Z68.1 Body mass index [BMI] 19.9 or less, adult; I12.0 Hypertensive chronic kidney disease with stage 5 chronic kidney disease or end stage renal disease; E11.51 Type 2 diabetes mellitus with diabetic peripheral angiopathy without gangrene; E11.22 Type 2 diabetes mellitus with diabetic chronic kidney disease; E11.621 Type 2 diabetes mellitus with foot ulcer; E11.622 Type 2 diabetes mellitus with other skin ulcer; N18.6 End stage renal disease; E11.21 Type 2 diabetes mellitus with diabetic nephropathy; Z79.899 Other long term (current) drug therapy; Z85.46 Personal history of malignant neoplasm of prostate; Z79.4 Long term (current) use of insulin
CPT/HCPCS: 36415; 80048; 80053; 82803; 82962; 84134; 85007; 85025; 85027; 85610; 85730; 87040; 87116; 88307; 88311; 88312; 88313; 88342; 93005; 93010; 99214; G0378; A6260; G0463; J0690; J1100; J1644; J1815; J2370; J2405; J3010; J7030; J7042

== ENCOUNTER 2018-10-29 14:47 | Inpatient (IN) | payer MEDICARE ==
--- NOTE | 2018-10-29 16:53 | Emergency Department Report ---
HPI - General Chief Complaint: Altered Mental Status Time Seen by Provider: 10/29/18 16:39 - HPI HPI: 73-year-old -[place] male presents to the emergency department via EMS from his [facility] with complaints of altered mental status and noncompliance with dialysis. Patient has a history of prostate cancer, end-stage renal disease on hemodialysis, non-insulin dependent diabetes, urinary retention with catheter in place,. The patient is currently nonverbal and is a poor historian. Allegedly, per the facility, the patient has not eaten anything for the past 24 hours and has been refusing dialysis for the past week. ED Past Medical Hx - Past Medical History Previous Medical History?: Yes Hx Hypertension: Yes Hx Heart Attack/AMI: No Hx Diabetes: Yes Hx Renal Disease: Yes (dialysis) Hx Sickle Cell Disease: No - Surgical History Past Surgical History?: Yes Additional Surgical History: dialysis port on right side of chest, left front of foot amputation. - Social History Smoking Status: Unknown if ever smoked Substance Use Type: None - Medications Home Medications: Home Medications Medication Instructions Recorded Confirmed Last Taken Type Acetaminophen [Acetaminophen TAB] 650 mg PO Q4H PRN 03/12/18 07/19/18 Unknown History Calcium Acetate [Phoslo] 667 mg PO TID 03/12/18 07/19/18 05/13/18 17:00 History Carvedilol [Coreg] 6.25 mg PO BID 03/12/18 07/19/18 05/13/18 09:00 History Ergocalciferol 50,000 unit PO QWEEK 03/12/18 07/19/18 05/11/18 09:00 History Flomax 0.4 mg PO HS 03/12/18 07/19/18 05/13/18 09:00 History Insulin Aspart [NovoLOG Flexpen] See Protocol SQ TID 03/12/18 07/19/18 05/13/18 History Apixaban [Eliquis] 2.5 mg PO BID tablet 08/21/18 Unknown Rx Lispro Insulin [Humalog] 0 unit SUB-Q ACHS units 08/21/18 Unknown Rx Sodium Bicarbonate 650 mg PO BID tablet 08/21/18 Unknown Rx traMADol [Ultram 50 MG tab] 25 mg PO Q12H PRN tablet 08/21/18 Unknown Rx ED Review of Systems ROS: Stated complaint: ALTERED MENTAL STATUS Other details as noted in HPI Comment: Unobtainable due to pts medical conditions Physical Exam - Physical Exam Vital Signs: Vital Signs 10/29/18 16:25 Pulse Rate 87 Respiratory 20 Rate Blood Pressure 124/76 O2 Sat by Pulse 100 Oximetry Physical Exam: GENERAL: The patient is cachectic and ill-appearing. HEENT: Normocephalic. Atraumatic. Patient has moist mucous membranes. EYES: Extraocular motions are intact. Pupils are equal and reactive to light bilaterally. NECK: Supple. Trachea is midline. CHEST/LUNGS: Slightly coarse breath sounds. No tachypnea or accessory muscle use. There is no respiratory distress noted. HEART/CARDIOVASCULAR: Regular. There is no tachycardia. There is no obvious murmur. ABDOMEN: Abdomen is soft, nontender. Patient has normal bowel sounds. There is no abdominal distention. SKIN: Skin is warm and dry. NEURO: Patient is nonverbal and appears confused. Withdraws from painful stimuli. MUSCULOSKELETAL: Right above-knee amputation. There is no evidence of acute injury. ED Course Vital Signs 10/29/18 16:25 Pulse Rate 87 Respiratory 20 Rate Blood Pressure 124/76 O2 Sat by Pulse 100 Oximetry - Consultations Consultation #1: 10/29/18 18:58 I spoke with the critical care technician on-call, Dr. Garrison, who is the patient's need for dialysis, hyponatremia, hyperkalemia, uremia. The patient will get dialysis this evening. ED Medical Decision Making - Lab Data Result diagrams: 10/29/18 17:13 10/29/18 17:13 - EKG Data -: EKG Interpreted by Me EKG shows normal: sinus rhythm, axis, intervals, QRS complexes, ST-T waves (nonspecific T waves) Rate: normal - EKG Data When compared to previous EKG there are: previous EKG unavailable Interpretation: other (sinus rhythm, 99 bpm, nonspecific T waves) - Radiology Data Radiology results: report reviewed, image reviewed interpreted by me: Chest x-ray does not show any pneumothorax, pleural effusion, pneumonia or obvious focal consolidation. PROCEDURE: CT HEAD/BRAIN WO CON TECHNIQUE: Spiral imaging of the brain was obtained without IV contrast. HISTORY: Altered Mental Status COMPARISONS: Prior CT scan of the brain 03/10/2018 FINDINGS: Brain: There is no evidence of intracranial hemorrhage. No parenchymal hemorrhage is seen. No mass lesions or mass effect is identified. No abnormal extra-axial fluid collections or masses are seen. There is some decreased density seen in the periventricular white matter without mass effect. This is fairly symmetric and does not exhibit any mass effect consistent with gliosis probably on the basis of microvascular disease or white matter changes of aging. Ventricles: The ventricles, sulcal pattern and fissures are prominent consistent with atrophy. Bone Windows: No evidence of fracture. Paranasal sinuses: There is mucosal thickening and a moderate-sized air-fluid level in the right side of the sphenoid sinus. There appears to be a small amount of mucosal thickening posteriorly in the left maxillary sinus. There are a few opacified ethmoid air cells bilaterally. There is nodular mucosal thickening in the visualized portions of the maxillary sinuses which are otherwise clear. Mastoid air cells: Clear. IMPRESSION: No acute intracranial abnormalities are identified. There is evidence of mild to moderate atrophy and moderate gliosis. Paranasal sinus disease as described. Mucosal thickening and air-fluid level right side of the sphenoid sinus suggesting acute sinusitis. This document is electronically signed by Irena Whatley MD., October 29 2018 06:23:33 PM ET Transcribed By: ISABELLA Dictated By: IRENA WHATLEY MD Electronically Authenticated By: IRENA WAHTLEY MD Signed Date/Time: 10/29/18 3285 - Medical Decision Making This patient presents from his [facility] with a complaint of decreased appetite and oral intake, as well as noncompliance with dialysis for the past week. He is nonverbal and appears confused. Labs show uremia, hyperkalemia, hyponatremia, chronic kidney disease. We are awaiting a urine sample from his [facility] catheter and collection bag but I have high suspicion of urinary tract infection. For the hyperkalemia, the patient has been given calcium, insulin, glucose, albuterol and Kayexalate. Nephrology has been contacted and the patient will receive dialysis this evening. A CT scan of the head was done that does not show any bleed, shift, mass, ischemia, or any other acute process. The patient was accepted for admission by his primary care physician, Dr. Kellre. - Differential Diagnosis CVA, TIA, uremia, encephalopathy Critical Care Time: Yes Critical care time in (mins) excluding proc time.: 35 Critical care attestation.: If time is entered above; I have spent that time in minutes in the direct care of this critically ill patient, excluding procedure time. Critical care time was spent on this patient and during his initial evaluation, multiple re- evaluations, ordering and interpretation of labs and imaging, medications, discussion with the critical care technician and primary care physician. There is a high probability of clinically significant, sudden, or life-threatening deterioration that has required multiple evaluations and direct attention, intervention, and management. Critical Care Time: 35 minutes ED Disposition Clinical Impression: Uremia, ESRD needing dialysis, Acute encephalopathy, Hypernatremia, Hyperkalemia Altered mental status Qualifiers: Altered mental status type: unspecified Qualified Code(s): R41.82 - Altered mental status, unspecified Disposition: DC-[id number] OP ADMIT IP TO THIS HOSP Is pt being admited?: Yes Condition: Serious Time of Disposition: 18:49
[2018-10-29 17:34] LABS: Basophils % (Auto) 0.5 % (0.0-1.8); Eosinophils # (Auto) 0.1 K/mm3 (0.0-0.4); Hematocrit 36.8 % (35.5-45.6); Hemoglobin 12.2 gm/dl (11.8-15.2); Lymphocytes # (Auto) 1.2 K/mm3 (1.2-5.4); Lymphocytes % (Auto) 19.5 % (13.4-35.0); Mean Corpuscular HGB Conc 33 % (32-34); Mean Corpuscular Volume 102 fl (84-94); Monocytes # (Auto) 0.5 K/mm3 (0.0-0.8); Monocytes % (Auto) 7.8 % (0.0-7.3); Platelet Count 273 K/mm3 (140-440); Red Blood Count 3.62 M/mm3 (3.65-5.03); Red Cell Distribution Width 19.6 % (13.2-15.2)
[2018-10-29 17:54] LABS: Albumin 2.6 g/dL (3.9-5); Calcium 10.7 mg/dL (8.4-10.2)
--- NOTE | 2018-10-29 18:02 | XRay Report ---
PROCEDURE: XR CHEST 1V AP TECHNIQUE: Portable upright AP chest HISTORY: Altered Mental Status COMPARISONS: Chest x-ray March 30, 2018 FINDINGS: Right internal jugular line no longer present. Trachea midline. Heart size normal. No pneumothorax. No sizable effusion. No acute airspace disease No acute bony abnormality IMPRESSION: No acute pulmonary disease. This document is electronically signed by Yon Coronel MD., October 29 2018 06:00:18 PM ET
--- NOTE | 2018-10-29 18:25 | Cat Scan Report ---
PROCEDURE: CT HEAD/BRAIN WO CON TECHNIQUE: Spiral imaging of the brain was obtained without IV contrast. HISTORY: Altered Mental Status COMPARISONS: Prior CT scan of the brain 03/10/2018 FINDINGS: Brain: There is no evidence of intracranial hemorrhage. No parenchymal hemorrhage is seen. No mass lesions or mass effect is identified. No abnormal extra-axial fluid collections or masses are seen. There is some decreased density seen in the periventricular white matter without mass effect. This i s fairly symmetric and does not exhibit any mass effect consistent with gliosis probably on the basis of microvascular disease or white matter changes of aging. Ventricles: The ventricles, sulcal pattern and fissures are prominent consistent with atrophy. Bone Windows: No evidence of fracture. Paranasal sinuses: There is mucosal thickening and a moderate-sized air-fluid level in the right side of the sphenoid sinus. There appears to be a small amount of mucosal thickening posteriorly in the l eft maxillary sinus. There are a few opacified ethmoid air cells bilaterally. There is nodular mucosa l thickening in the visualized portions of the maxillary sinuses which are otherwise clear. Mastoid air cells: Clear. IMPRESSION: No acute intracranial abnormalities are identified. There is evidence of mild to moderate atrophy and moderate gliosis. Paranasal sinus disease as described. Mucosal thickening and air-fluid level right side of the spheno id sinus suggesting acute sinusitis. This document is electronically signed by Horacio Amador MD., October 29 2018 06:23:33 PM ET
[2018-10-29] MEDS ORDERED: KIONEX PO ONE (18:43)
[2018-10-29] MEDS ORDERED: PROVENTIL IH ONE (18:46)
[2018-10-29] MEDS ORDERED: HumuLIN R IV ONE (18:46)
[2018-10-29] MEDS ORDERED: D50W (25GM) Syringe IV ONE (18:47)
[2018-10-29] MEDS ORDERED: NACL 0.9% 100 ML IV PRN (19:01)
[2018-10-29] MEDS ORDERED: CALCIUM GLUCONATE 1,000 MG in NACL 0.9% 100 ML IV ONE (19:30)
[2018-10-29] MEDS ORDERED: D5/0.45NS 1,000 ML IV SCH (20:00)
[2018-10-29] MEDS ORDERED: ATROPINE 0.1% (CARDIAC) ONE (22:00)
[2018-10-29] MEDS ORDERED: CALCIUM CHLORIDE IV ONE (22:00)
[2018-10-29] MEDS ORDERED: ADRENALIN ONE (22:00)
--- NOTE | 2018-10-29 22:38 | Emergency Department Report ---
Blank Doc - Documentation Documentation: I responded to Code Blue in hemodialysis unit. Reported agonal breathing and hypotension. I directed ACLS resuscitation with chest compressions, atropine one dose, one dose epinephrine. PEA narrow complex rhythm. After approximately 10 minutes, ROSC achieved with palpable carotid pulse. I gave verbal order of calcium and sodium bicarbonate to treat hyperkalemia. Procedure Note: emergent intubation for airway protection and ventilation Due to comatose state, I performed intubation with direct laryngoscopy without induction medications or paralytics, I was able to insert 7.5 ETT 22 cm at corner of lips with direct visualization of the vocal cords using 4-0 Vincent blade. +condensation +equal breaths sounds. +CO2 detected with color change. I provided order for CXR ordered.
--- NOTE | 2018-10-29 23:19 | XRay Report ---
PROCEDURE: XR CHEST 1V AP TECHNIQUE: Single AP view of the chest HISTORY: intubation COMPARISONS: FINDINGS: Cardiac and mediastinal contours are unremarkable. No focal pulmonary infiltrate identified. No pleur al fluid collection seen. There is been placement of an ET tube in satisfactory position. No addition al interval change appreciated IMPRESSION: ET tube in satisfactory position. This document is electronically signed by Leonel Wolff MD., October 29 2018 11:16:47 PM ET
--- NOTE | 2018-10-29 23:38 | History and Physical Report ---
History of Present Illness Date of examination: 10/29/18 Date of admission: 10/29/18 18:49 Chief complaint: Altered mental. History of present illness: called about patients change in clinical condition, from [facility].Apparently, patient had not had HD in 5days. he was sent to the Ed, W/up revealed hyperkalemia, and sepsis syndrome. He was treated for hyperkalemia, sent to dialysis center, where he coded, ACLS was done, and patient was intubated, for air ways protection. he was moved to the CCU.He has multiple medical problems, including LE amputation, DM, PVD, Prostate cancer. He had been refusing some tx at the [facility], as per the staff.He was under hospice care at the [facility], at some popint, but have elected to come to the hospital.Will discuss with the daughter regarding code status, going forward.Ct of the brain reveals sphenoidal sinusitis, and will therefore, put on IV ABX.He will continue HD under the nephrology. Will ask for NGT, for feeding.He will need anti coagulation. Past History Past Medical History: cancer, diabetes, DVT Past Surgical History: Other (LE amputation.) Social history: no significant social history Family history: no significant family history Medications and Allergies Allergies Allergy/AdvReac Type Severity Reaction Status Date / Time No Known Allergies Allergy Verified 01/18/18 20:10 Home Medications Medication Instructions Recorded Confirmed Last Taken Type Acetaminophen [Acetaminophen TAB] 650 mg PO Q4H PRN 03/12/18 07/19/18 Unknown History Calcium Acetate [Phoslo] 667 mg PO TID 03/12/18 07/19/18 05/13/18 17:00 History Carvedilol [Coreg] 6.25 mg PO BID 03/12/18 07/19/18 05/13/18 09:00 History Ergocalciferol 50,000 unit PO QWEEK 03/12/18 07/19/18 05/11/18 09:00 History Flomax 0.4 mg PO HS 03/12/18 07/19/18 05/13/18 09:00 History Insulin Aspart [NovoLOG Flexpen] See Protocol SQ TID 03/12/18 07/19/18 05/13/18 History Apixaban [Eliquis] 2.5 mg PO BID tablet 08/21/18 Unknown Rx Lispro Insulin [Humalog] 0 unit SUB-Q ACHS units 08/21/18 Unknown Rx Sodium Bicarbonate 650 mg PO BID tablet 08/21/18 Unknown Rx traMADol [Ultram 50 MG tab] 25 mg PO Q12H PRN tablet 08/21/18 Unknown Rx Active Meds: Active Medications Heparin Sodium (Porcine) (Heparin) 5,000 unit SUB-Q Q8HR KIRSTEN Dextrose/Sodium Chloride (D5/0.45ns) 1,000 mls @ 75 mls/hr IV DIRECT KIRSTEN Sodium Chloride (Nacl 0.9%) 100 mls @ 999 mls/hr IV ALEJO PRN PRN Reason: Hypotension Ceftriaxone Sodium (Rocephin/Ns 1 Gm/50 Ml) 1 gm in 50 mls @ 100 mls/hr IV Q24HR KIRSTEN; Protocol Review of Systems Respiratory: other (on full vent support.) Exam - Constitutional Vitals: Temp Pulse Resp BP Pulse Ox 97.7 F 90 18 100/60 100 10/29/18 23:23 10/29/18 20:45 10/29/18 20:15 10/29/18 20:45 10/29/18 20:15 General appearance: Present: severe distress, cachectic - EENT Eyes: Present: PERRL ENT: hearing intact, clear oral mucosa - Neck Neck: Present: supple, normal ROM - Respiratory Respiratory: bilateral: other (on full vent support.) - Cardiovascular Heart Sounds: Present: S1 & S2. Absent: rub, click - Extremities Extremities: No edema, abnormal Extremity abnormal: pulses diminished Peripheral Pulses: within normal limits - Abdominal General gastrointestinal: Present: soft, non-tender, non-distended, normal bowel sounds Male genitourinary: Present: deferred - Rectal Rectal Exam: deferred - Integumentary Integumentary: Present: clear, warm, dry - Musculoskeletal Musculoskeletal: generalized weakness Results - Labs CBC & Chem 7: 10/29/18 17:13 10/29/18 17:13 Labs: Abnormal lab results 10/29/18 10/29/18 10/29/18 Range/Units 17:13 17:13 17:13 RBC 3.62 L (3.65-5.03) M/mm3 MCV 102 H (84-94) fl MCH 34 H (28-32) pg RDW 19.6 H (13.2-15.2) % [place] % (Auto) 7.8 H (0.0-7.3) % Seg Neutrophils % 71.2 H (40.0-70.0) % Sodium 164 H* (137-145) mmol/L Potassium 6.2 H* (3.6-5.0) mmol/L Chloride 127.5 H (98-107) mmol/L BUN 178 H (9-20) mg/dL Creatinine 4.2 H (0.8-1.5) mg/dL Glucose 131 H (75-100) mg/dL Calcium 10.7 H (8.4-10.2) mg/dL Total Protein 9.5 H (6.3-8.2) g/dL Albumin 2.6 L (3.9-5) g/dL TSH 5.310 H (0.270-4.200) mlU/mL Assessment and Plan - Patient Problems (1) Altered mental status Current Visit: Yes Status: Acute Qualifiers: Altered mental status type: unspecified Qualified Code(s): R41.82 - Altered mental status, unspecified Plan to address problem: most likely due to sinus infection. (2) Hyperkalemia Current Visit: Yes Status: Acute Plan to address problem: Treated, and continue to correct with HD. (3) Hypernatremia Current Visit: Yes Status: Acute Plan to address problem: correct with HD. (4) Uremia Current Visit: Yes Status: Acute Plan to address problem: treat underlying cause. (5) Acute encephalopathy Current Visit: Yes Status: Chronic Plan to address problem: supportive care. (6) ESRD needing dialysis Current Visit: Yes Status: Chronic Plan to address problem: Continue on HD. (7) Sepsis Current Visit: Yes Status: Acute Plan to address problem: treat the etiology.Most likely due to sinus infection.
[2018-10-29] MEDS ORDERED: NACL 0.9 (PRIMING MACHINE ONLY DIALYSIS) MC ONE (23:54)
[2018-10-30] MEDS: LEVOPHED DRIP 4 MG/NS 250 ML 4 MG/250 ML BAG IV SCH ×4 (00:20→23:03)
--- NOTE | 2018-10-30 05:28 | XRay Report ---
PROCEDURE: XR ABDOMEN 1V AP TECHNIQUE: A portable supine view the abdomen was obtained. HISTORY: NG tube placement COMPARISONS: None FINDINGS: The tip of the Dobbhoff tube is coiled in the upper stomach. The bowel gas pattern otherwise is nondi agnostic. Free air is not seen. The skeletal structures reveal spurring of the lumbar spine. IMPRESSION: Tip of the Dobbhoff tube is coiled in the upper stomach.. This document is electronically signed by Tj Benz MD., October 30 2018 05:25:19 AM ET
[2018-10-30] MEDS: HEPARIN SUB-Q SCH ×3 (05:50→22:59)
--- NOTE | 2018-10-30 08:14 | Consultation ---
History of Present Illness Consult date: 10/30/18 Requesting physician: KATTY SLATER History of present illness: 73-year-old -[place]ian male presents to the emergency department via EMS from his [place] [facility] with complaints of altered mental status and noncompliance with dialysis. Patient has a history of prostate cancer, end-stage renal disease on hemodialysis, non-insulin dependent diabetes, urinary retention suprapubic catheter in place. Allegedly, per the facility, the patient has not eaten anything for the past 24 hours and has been refusing dialysis for the past week. He was admitted, sent to HD unit for hemodialysis when he went into a PEA arrest, s/p Code blue with ROSC, within 5 minutes. Orally intubated and admitted to the ICU. I was consulted for critical care and ventilator management. Patient was seen and examined. Vitals, labs, medications, chart and imaging reviewed. Documented history is as noted in the medical records. The patient is unable to give any history On 4mcg of norepinephrine Currently on MVS AC 18/400/6/35% ABG 7.43/35/144/23 REVIEW OF SYSTEMS Unable to obtain, orally intubated, encephalopathic - Past Medical History Previous Medical History?: Yes Hx Hypertension: Yes Hx Heart Attack/AMI: No Hx Diabetes: Yes Hx Renal Disease: Yes (dialysis) Hx Sickle Cell Disease: No - Surgical History Past Surgical History?: Yes Additional Surgical History: dialysis port on right side of chest, left front of foot amputation. - Social History Smoking Status: Unknown if ever smoked Substance Use Type: None Past History Past Medical History: cancer, diabetes, DVT Past Surgical History: Other (LE amputation.) Social history: no significant social history Family history: no significant family history Medications and Allergies Allergies Allergy/AdvReac Type Severity Reaction Status Date / Time No Known Allergies Allergy Verified 01/18/18 20:10 Home Medications Medication Instructions Recorded Confirmed Last Taken Type Ergocalciferol 50,000 unit PO QWEEK 03/12/18 07/19/18 05/11/18 09:00 History Flomax 0.4 mg PO HS 03/12/18 07/19/18 05/13/18 09:00 History RX: Acetaminophen [Acetaminophen 650 mg PO Q4H PRN 03/12/18 07/19/18 Unknown History TAB] RX: Calcium Acetate [Phoslo] 667 mg PO TID 03/12/18 07/19/18 05/13/18 17:00 History RX: Carvedilol [Coreg] 6.25 mg PO BID 03/12/18 07/19/18 05/13/18 09:00 History RX: Insulin Aspart [NovoLOG See Protocol SQ TID 03/12/18 07/19/18 05/13/18 History Flexpen] RX: Apixaban [Eliquis] 2.5 mg PO BID tablet 08/21/18 Unknown Rx RX: Lispro Insulin [Humalog] 0 unit SUB-Q ACHS units 08/21/18 Unknown Rx RX: Sodium Bicarbonate 650 mg PO BID tablet 08/21/18 Unknown Rx RX: traMADol [Ultram 50 MG tab] 25 mg PO Q12H PRN tablet 08/21/18 Unknown Rx Active Meds: Active Medications Heparin Sodium (Porcine) (Heparin) 5,000 unit SUB-Q Q8HR KIRSTEN Last Admin: 10/30/18 05:50 Dose: 5,000 unit Documented by: Dextrose/Sodium Chloride (D5/0.45ns) 1,000 mls @ 75 mls/hr IV DIRECT KIRSTEN Last Admin: 10/29/18 23:36 Dose: 75 mls/hr Documented by: Sodium Chloride (Nacl 0.9%) 100 mls @ 999 mls/hr IV ALEJO PRN PRN Reason: Hypotension Ceftriaxone Sodium (Rocephin/Ns 1 Gm/50 Ml) 1 gm in 50 mls @ 100 mls/hr IV Q24HR KIRSTEN; Protocol Norepinephrine (Levophed Drip 4 Mg/Ns 250 Ml) 4 mg in 250 mls @ 7.5 mls/hr IV TITR KIRSTEN; Protocol Last Admin: 10/30/18 06:59 Dose: 10 mcg/min, 37.5 mls/hr Documented by: Review of Systems ROS unobtainable: due to endotracheal tube, due to mental status Physical Examination Vital signs: Vital Signs Pulse Resp BP Pulse Ox 87 20 124/76 100 10/29/18 16:25 10/29/18 16:25 10/29/18 16:25 10/29/18 16:25 GENERAL: The patient is cachectic and ill-appearing, temporal wasting with lanu go hair. ETT to MVS, no patient-ventilator dys-synchrony HEENT: Normocephalic. Atraumatic. Patient has moist mucous membranes. EYES: Extraocular motions are intact. Pupils are equal and reactive to light bilaterally. NECK: Supple. Trachea is midline. CHEST/LUNGS: Slightly coarse breath sounds. No tachypnea or accessory muscle use. There is no respiratory distress noted. HEART/CARDIOVASCULAR: Regular. There is no tachycardia. There is no obvious murmur. ABDOMEN: Abdomen is soft, nontender. Patient has normal bowel sounds. There is no abdominal distention. Supra pubic catheter SKIN: Skin is warm and dry. NEURO: Unresponsive MUSCULOSKELETAL: Right above-knee amputation. RUExt AV-graft, Left IO Results - Laboratory Findings CBC and BMP: 10/30/18 08:54 10/30/18 19:51 ABG POC ABG pH 7.433 (7.35-7.45) 10/30/18 04:35 POC ABG pCO2 34.9 (35-45) L 10/30/18 04:35 POC ABG pO2 144 (80-105) H 10/30/18 04:35 POC ABG HCO3 23.3 (22-26 mml/L) 10/30/18 04:35 POC ABG Total CO2 24 (23-27mmol/L) 10/30/18 04:35 POC ABG O2 Sat 99 10/30/18 04:35 Abnormal lab findings: Abnormal Labs 10/29/18 10/29/18 10/29/18 17:13 17:13 17:13 RBC 3.62 L MCV 102 H MCH 34 H RDW 19.6 H Coles % (Auto) 7.8 H Seg Neutrophils % 71.2 H POC ABG pH POC ABG pCO2 POC ABG pO2 Sodium 164 H* Potassium 6.2 H* Chloride 127.5 H BUN 178 H Creatinine 4.2 H Glucose 131 H POC Glucose Calcium 10.7 H Total Protein 9.5 H Albumin 2.6 L TSH 5.310 H 10/29/18 10/30/18 10/30/18 23:57 00:06 04:35 RBC MCV MCH RDW Coles % (Auto) Seg Neutrophils % POC ABG pH 7.488 H POC ABG pCO2 32.1 L 34.9 L POC ABG pO2 144 H Sodium Potassium Chloride BUN Creatinine Glucose POC Glucose 131 H Calcium Total Protein Albumin TSH 10/30/18 05:13 RBC MCV MCH RDW Coles % (Auto) Seg Neutrophils % POC ABG pH POC ABG pCO2 POC ABG pO2 Sodium Potassium Chloride BUN Creatinine Glucose POC Glucose 316 H Calcium Total Protein Albumin TSH - Diagnostic Findings Chest x-ray: image reviewed (ETT in position, no acute pulmonary infiltrates) Assessment and Plan -s/p PEA arrest -Acute hypoxic respiratory failure on MVS -Acute encephalopathy( toxic, metabolic) -Severe protein calorie malnutrition -Hyperkalemia -ESRD on HD -Hyperosmolar hyperglycemic state -Hypotension, multifactorial, ?sepsis, dehydration -Hypernatremia -PVD s/p right BKA -Prostate cancer s/p suprapubic catheter -Continue with MVS -Lung protective strategies -Supplemental oxygen, wean for O2 sats>90% -Daily SBTs as tolerated -VTE prophylaxis( heparin) -Stress ulcer prophylaxis( Famotidine) -High dose sliding scale insulin with accuchecks -Place small bowel feeding tube, check placement -Nutrition consult for tube feedings -Free water flushes -Wound consult -Supportive HD -Follow cultures. The patient is currently on Ceftriaxone. Lactate was 1:1, no clinical evidence of infection. Follow cultures, then de-escalate based on ID and TOÑO -Wean vasopressor support for MAP.65 -Volume resuscitation -ABG and CXR in am -Serial BMP to monitor sodium levels CONDITION: CRITICAL PROGNOSIS: GUARDED CODE STATUS: FULL Discussed with ICU care team during IDT rounds Discussed with CM/SW to identify the POA/NOK for us to have discussions on goals of care and code status. I have spent 65 minutes in the direct care of this critically ill patient, excluding procedure time. Critical care time was spent on this patient and during his initial evaluation, multiple re-evaluations, ordering and interpretation of labs and imaging, medications, discussion with the ICU care team. There is a high probability of clinically significant, sudden, or life- threatening deterioration that has required multiple evaluations and direct attention, intervention, and management.
--- NOTE | 2018-10-30 08:54 | XRay Report ---
AP ABDOMEN: HISTORY: Dobbhoff tube repositioning. The Dobbhoff tube has been repositioned slightly but still terminates in the fundus of the stomach. The stomach and proximal small bowel loops appear mildly dilated as is unchanged. There is moderate stool the visualized colon. Lung bases are clear.
[2018-10-30 09:09] LABS: Hematocrit 36.4 % (35.5-45.6); Hemoglobin 11.7 gm/dl (11.8-15.2); Mean Corpuscular HGB Conc 32 % (32-34); Mean Corpuscular Volume 102 fl (84-94); Platelet Count 238 K/mm3 (140-440); Red Blood Count 3.56 M/mm3 (3.65-5.03); Red Cell Distribution Width 19.2 % (13.2-15.2)
--- NOTE | 2018-10-30 09:22 | Consultation ---
History of Present Illness - Reason for Consult Consult date: 10/30/18 end stage renal disease, hypernatremia, hyperkalemia - History of Present Illness The patient is a 73 YO AAM with history significant for Prostate cancer, ESRD on hemodialysis, DM type 2, Urinary retention and PAD s/p R AKA who presented to the ED via EMS from his detention with complaints of altered mental status and noncompliance with dialysis. Patient was not able to provide any history and tehre was no family member at the bedside. The patient has been refusing dialysis for the past week. Labs were significant for BUN 178 and K 6.2 He received urgent hemodialysis yesterday. He coded yesterday with agonal breathing. He was resuscitated, intubated and currently on the vent. He was under hospice care at the [place], at some point. Nephrology was consulted for managing ESRD. Past History Past Medical History: cancer, diabetes, dialysis, DVT, ESRD, hypertension Past Surgical History: Other (LE amputation.) Social history: no significant social history Family history: no significant family history Medications and Allergies Allergies Allergy/AdvReac Type Severity Reaction Status Date / Time No Known Allergies Allergy Verified 01/18/18 20:10 Home Medications Medication Instructions Recorded Confirmed Last Taken Type Acetaminophen [Acetaminophen TAB] 650 mg PO Q4H PRN 03/12/18 07/19/18 Unknown History Calcium Acetate [Phoslo] 667 mg PO TID 03/12/18 07/19/18 05/13/18 17:00 History Carvedilol [Coreg] 6.25 mg PO BID 03/12/18 07/19/18 05/13/18 09:00 History Ergocalciferol 50,000 unit PO QWEEK 03/12/18 07/19/18 05/11/18 09:00 History Flomax 0.4 mg PO HS 03/12/18 07/19/18 05/13/18 09:00 History Insulin Aspart [NovoLOG Flexpen] See Protocol SQ TID 03/12/18 07/19/18 05/13/18 History Apixaban [Eliquis] 2.5 mg PO BID tablet 08/21/18 Unknown Rx Lispro Insulin [Humalog] 0 unit SUB-Q ACHS units 08/21/18 Unknown Rx Sodium Bicarbonate 650 mg PO BID tablet 08/21/18 Unknown Rx traMADol [Ultram 50 MG tab] 25 mg PO Q12H PRN tablet 08/21/18 Unknown Rx Active Meds: Active Medications Famotidine (Pepcid) 20 mg IV DAILY [facility] Heparin Sodium (Porcine) (Heparin) 5,000 unit SUB-Q Q8HR [facility] Last Admin: 10/30/18 05:50 Dose: 5,000 unit Documented by: Dextrose/Sodium Chloride (D5/0.45ns) 1,000 mls @ 75 mls/hr IV DIRECT KIRSTEN Last Admin: 10/29/18 23:36 Dose: 75 mls/hr Documented by: Sodium Chloride (Nacl 0.9%) 100 mls @ 999 mls/hr IV ALEJO PRN PRN Reason: Hypotension Ceftriaxone Sodium (Rocephin/Ns 1 Gm/50 Ml) 1 gm in 50 mls @ 100 mls/hr IV Q24HR KIRSTEN; Protocol Norepinephrine (Levophed Drip 4 Mg/Ns 250 Ml) 4 mg in 250 mls @ 7.5 mls/hr IV T ITR KIRSTEN; Protocol Last Admin: 10/30/18 06:59 Dose: 10 mcg/min, 37.5 mls/hr Documented by: Insulin Human Lispro (Humalog) 0 unit SUB-Q Q6HR KIRSTEN; Protocol Review of Systems ROS unobtainable: due to mental status Exam - Vital Signs Vital signs: Vital Signs Pulse Resp BP Pulse Ox 87 20 124/76 100 10/29/18 16:25 10/29/18 16:25 10/29/18 16:25 10/29/18 16:25 - General Appearance General appearance: well-developed, appears stated age, cachectic, intubated, other (on vent) EENT: ATNC, PERRL Neck: Present: neck supple, trachea midline Respiratory: Clear to Ascultation Heart: regular, S1S2, no murmurs Gastrointestinal: Present: normoactive bowel sounds. Absent: tenderness, distended Integumentary: warm and dry Neurologic: obtunded Musculoskeletal: Present: other (right arm AVF, right AKA, left TMA) Results - Lab Results 10/30/18 08:54 10/30/18 08:59 Most recent lab results Calcium 10.7 mg/dL (8.4-10.2) H 10/29/18 17:13 Assessment and Plan 1. ESRD: Patient received hemodialysis yesterday. Monitor. 2. FEN: Hyperkalemia, s/p HD yesterday. Hypernatremia, improving. 3. Respiratory failure: On vent. 4. Shock: Levophed. 5. Urosepsis.
[2018-10-30 09:31] LABS: Albumin 2.2 g/dL (3.9-5); C-Reactive Protein 5.2 mg/dL (0.00-1.30)
[2018-10-30 09:31] LABS: Calcium 9.5 mg/dL (8.4-10.2)
[2018-10-30] MEDS: ROCEPHIN/NS 1 GM/50 ML 1 GM/50 ML BAG IV SCH (09:46)
[2018-10-30] MEDS: PEPCID IV SCH (09:47)
[2018-10-30] MEDS: HumaLOG SUB-Q SCH ×3 (09:47→18:25)
[2018-10-30] MEDS ORDERED: SIMPLE SYRUP FEEDTUBE PRN ×2 (11:37)
[2018-10-30] MEDS ORDERED: PANCREAZE DR 10,500 UNIT FEEDTUBE PRN (11:37)
[2018-10-30] MEDS ORDERED: SODIUM BICARBONATE FEEDTUBE PRN (11:37)
[2018-10-30] MEDS ORDERED: D50W (25GM) Syringe IV STA (19:04)
[2018-10-30 20:14] LABS: Bilirubin,Urine NEG (Negative); Blood,Urine MOD (Negative); Color,Urine Red (Yellow); Mucus,Urine 3+ /HPF; RBC,Urine > 182.0 /HPF (0.0-6.0); Sperm,Urine 3+ /HPF (NP); Urobilinogen,Urine < 2.0 mg/dL (<2.0); WBC,Urine > 182.0 /HPF (0.0-6.0)
--- NOTE | 2018-10-30 23:45 | Progress Note ---
Assessment and Plan - Patient Problems (1) Altered mental status Current Visit: Yes Status: Acute Qualifiers: Altered mental status type: unspecified Qualified Code(s): R41.82 - Altered mental status, unspecified Plan to address problem: most likely due to sinus infection. (2) Hyperkalemia Current Visit: Yes Status: Acute Plan to address problem: Treated, and continue to correct with HD. corrected. (3) Hypernatremia Current Visit: Yes Status: Acute Plan to address problem: correct with HD. As above when feasible with the Renal service. (4) Uremia Current Visit: Yes Status: Acute Plan to address problem: treat underlying cause. (5) Acute encephalopathy Current Visit: Yes Status: Chronic Plan to address problem: supportive care. (6) ESRD needing dialysis Current Visit: Yes Status: Chronic Plan to address problem: Continue on HD. as above once feasible. (7) Sepsis Current Visit: Yes Status: Acute Plan to address problem: treat the etiology.Most likely due to sinus infection. Subjective Date of service: 10/30/18 Principal diagnosis: sepsis, acute resp, failure. Interval history: Patient seen/examined,in the ICU. I have spoken to the daughter, and his sister today, regarding plan of care, and prognosis. I have rec less agressive path, including hospice. They will think about it ,and let me know. Mean while, will continue current management. His prognosis is quite poor at this time. Objective - Constitutional Vitals: Vital Signs - 12hr 10/30/18 10/30/18 10/30/18 11:45 12:00 12:10 Temperature 98.4 F Pulse Rate 101 H 100 H Respiratory 20 20 18 Rate Blood Pressure 69/47 84/57 O2 Sat by Pulse 99 99 100 Oximetry 10/30/18 10/30/18 10/30/18 12:15 12:30 12:45 Temperature Pulse Rate 100 H 101 H 101 H Respiratory 21 19 20 Rate Blood Pressure 87/61 99/71 101/71 O2 Sat by Pulse 99 99 99 Oximetry 10/30/18 10/30/18 10/30/18 12:47 13:00 13:15 Temperature Pulse Rate 101 H 100 H 100 H Respiratory 21 19 Rate Blood Pressure 101/71 107/72 87/55 O2 Sat by Pulse 99 100 99 Oximetry 10/30/18 10/30/18 10/30/18 13:30 13:45 14:00 Temperature Pulse Rate 100 H 101 H 101 H Respiratory 19 24 24 Rate Blood Pressure 83/61 87/65 85/58 O2 Sat by Pulse 99 99 99 Oximetry 10/30/18 10/30/18 10/30/18 14:15 14:30 14:45 Temperature Pulse Rate 100 H 101 H 101 H Respiratory 18 18 24 Rate Blood Pressure 87/62 86/63 97/61 O2 Sat by Pulse 99 100 100 Oximetry 10/30/18 10/30/18 10/30/18 15:00 15:15 15:30 Temperature Pulse Rate 100 H 102 H 101 H Respiratory 18 22 18 Rate Blood Pressure 83/58 77/53 77/53 O2 Sat by Pulse 100 99 100 Oximetry 10/30/18 10/30/18 10/30/18 15:45 16:00 16:05 Temperature 97.7 F Pulse Rate 101 H 101 H Respiratory 19 20 18 Rate Blood Pressure 80/53 69/45 O2 Sat by Pulse 99 99 100 Oximetry 10/30/18 10/30/18 10/30/18 16:15 16:30 16:45 Temperature Pulse Rate 100 H 100 H 100 H Respiratory 18 18 18 Rate Blood Pressure 75/53 69/46 64/43 O2 Sat by Pulse 99 99 99 Oximetry 10/30/18 10/30/18 10/30/18 16:53 17:00 17:15 Temperature Pulse Rate 100 H 99 H 100 H Respiratory 19 20 Rate Blood Pressure 75/48 79/50 93/59 O2 Sat by Pulse 99 100 100 Oximetry 10/30/18 10/30/18 10/30/18 17:30 17:45 18:00 Temperature Pulse Rate 102 H 101 H 101 H Respiratory 19 21 25 H Rate Blood Pressure 110/73 70/33 88/60 O2 Sat by Pulse 100 99 97 Oximetry 10/30/18 10/30/18 10/30/18 20:00 20:20 23:31 Temperature 99.9 F H Pulse Rate 100 H 100 H Respiratory Rate Blood Pressure 125/81 105/71 O2 Sat by Pulse 98 100 Oximetry General appearance: Present: severe distress, cachectic - EENT Ears: bilateral: normal - Neck Neck: supple - Respiratory Respiratory: bilateral: rhonchi - Breasts Breasts: deferred - Cardiovascular Rhythm: regular Heart Sounds: Present: S1 & S2. Absent: gallop, rub Extremities: No edema, Full ROM Extremity abnormal: other (amputation.) - Gastrointestinal General gastrointestinal: Present: soft, non-tender, non-distended, normal bowel sounds Rectal Exam: deferred - Genitourinary Male genitourinary: deferred - Integumentary Integumentary: clear, warm, dry - Labs CBC & Chem 7: 10/30/18 08:54 10/30/18 19:51 Labs: Abnormal lab results 10/29/18 10/30/18 10/30/18 Range/Units 23:57 00:06 04:35 RBC (3.65-5.03) M/mm3 Hgb (11.8-15.2) gm/dl MCV (84-94) fl MCH (28-32) pg RDW (13.2-15.2) % POC ABG pH 7.488 H (7.35-7.45) POC ABG pCO2 32.1 L 34.9 L (35-45) POC ABG pO2 144 H (80-105) Sodium (137-145) mmol/L BUN (9-20) mg/dL Creatinine (0.8-1.5) mg/dL Glucose (75-100) mg/dL POC Glucose 131 H (70-105) C-Reactive Protein (0.00-1.30) mg/dL Albumin (3.9-5) g/dL Urine pH (5.0-7.0) Urine WBC (Auto) (0.0-6.0) /HPF 10/30/18 10/30/18 10/30/18 Range/Units 05:13 08:54 08:54 RBC 3.56 L (3.65-5.03) M/mm3 Hgb 11.7 L (11.8-15.2) gm/dl MCV 102 H (84-94) fl MCH 33 H (28-32) pg RDW 19.2 H (13.2-15.2) % POC ABG pH (7.35-7.45) POC ABG pCO2 (35-45) POC ABG pO2 (80-105) Sodium (137-145) mmol/L BUN (9-20) mg/dL Creatinine (0.8-1.5) mg/dL Glucose (75-100) mg/dL POC Glucose 316 H (70-105) C-Reactive Protein 5.20 H (0.00-1.30) mg/dL Albumin 2.2 L (3.9-5) g/dL Urine pH (5.0-7.0) Urine WBC (Auto) (0.0-6.0) /HPF 10/30/18 10/30/18 10/30/18 Range/Units 08:59 12:03 18:30 RBC (3.65-5.03) M/mm3 Hgb (11.8-15.2) gm/dl MCV (84-94) fl MCH (28-32) pg RDW (13.2-15.2) % POC ABG pH (7.35-7.45) POC ABG pCO2 (35-45) POC ABG pO2 (80-105) Sodium 146 H D (137-145) mmol/L BUN 86 H (9-20) mg/dL Creatinine 2.7 H (0.8-1.5) mg/dL Glucose 262 H (75-100) mg/dL POC Glucose 232 H 57 L (70-105) C-Reactive Protein (0.00-1.30) mg/dL Albumin (3.9-5) g/dL Urine pH (5.0-7.0) Urine WBC (Auto) (0.0-6.0) /HPF 10/30/18 10/30/18 10/30/18 Range/Units 18:39 19:07 19:42 RBC (3.65-5.03) M/mm3 Hgb (11.8-15.2) gm/dl MCV (84-94) fl MCH (28-32) pg RDW (13.2-15.2) % POC ABG pH (7.35-7.45) POC ABG pCO2 (35-45) POC ABG pO2 (80-105) Sodium (137-145) mmol/L BUN (9-20) mg/dL Creatinine (0.8-1.5) mg/dL Glucose (75-100) mg/dL POC Glucose < 40 L 51 L (70-105) C-Reactive Protein (0.00-1.30) mg/dL Albumin (3.9-5) g/dL Urine pH 8.0 H (5.0-7.0) Urine WBC (Auto) > 182.0 H (0.0-6.0) /HPF 10/30/18 10/30/18 10/30/18 Range/Units 19:51 23:13 23:40 RBC (3.65-5.03) M/mm3 Hgb (11.8-15.2) gm/dl MCV (84-94) fl MCH (28-32) pg RDW (13.2-15.2) % POC ABG pH (7.35-7.45) POC ABG pCO2 (35-45) POC ABG pO2 (80-105) Sodium (137-145) mmol/L BUN (9-20) mg/dL Creatinine (0.8-1.5) mg/dL Glucose 865 H* (75-100) mg/dL POC Glucose 152 H 145 H (70-105) C-Reactive Protein (0.00-1.30) mg/dL Albumin (3.9-5) g/dL Urine pH (5.0-7.0) Urine WBC (Auto) (0.0-6.0) /HPF
[2018-10-31] MEDS: HumaLOG SUB-Q SCH ×4 (00:29→17:49)
[2018-10-31] MEDS: LEVOPHED DRIP 4 MG/NS 250 ML 4 MG/250 ML BAG IV SCH ×2 (04:16→13:33)
[2018-10-31 05:31] LABS: Hematocrit 36.8 % (35.5-45.6); Mean Corpuscular HGB Conc 33 % (32-34); Mean Corpuscular Volume 100 fl (84-94); Platelet Count 220 K/mm3 (140-440); Red Blood Count 3.68 M/mm3 (3.65-5.03); Red Cell Distribution Width 18.1 % (13.2-15.2)
[2018-10-31] MEDS: HEPARIN SUB-Q SCH ×3 (06:01→22:01)
[2018-10-31 06:05] LABS: Calcium 8.5 mg/dL (8.4-10.2)
[2018-10-31 06:54] LABS: Anisocytosis 1+; Band Neutrophils # (Manual) 2.4 K/mm3; Basophils % (Manual) 0 % (0.0-1.8); Crenated RBC Few; Eosinophils % (Manual) 0 % (0.0-4.3); Monocytes % (Manual) 0 % (0.0-7.3); Platelet Estimate Consistent w Auto; Target Cells 1+; Total Cells Counted 100
--- NOTE | 2018-10-31 07:04 | Progress Note ---
Assessment and Plan 1. ESRD: Patient received hemodialysis 2 days ago. Monitor for PATIENT SUPPORT TECH needs. Remain on pressors. 2. FEN: Hyperkalemia, improved. Hypernatremia, improved. 3. Respiratory failure: On vent. 4. Shock: Levophed. 5. Urosepsis. Subjective Date of service: 10/31/18 Principal diagnosis: sepsis, acute resp, failure. Interval history: Patient was seen and examined at the bedside. Objective - Vital Signs Vital signs: Vital Signs - 12hr 10/30/18 10/30/18 10/30/18 19:15 19:30 19:45 Temperature Pulse Rate 100 H 100 H 99 H Respiratory 23 23 21 Rate Blood Pressure 105/70 125/80 109/70 O2 Sat by Pulse 98 99 99 Oximetry 10/30/18 10/30/18 10/30/18 20:00 20:15 20:20 Temperature 99.9 F H Pulse Rate 99 H 100 H 100 H Respiratory 21 19 Rate Blood Pressure 109/70 125/81 125/81 O2 Sat by Pulse 99 97 98 Oximetry 10/30/18 10/30/18 10/30/18 20:30 20:45 21:00 Temperature Pulse Rate 100 H 100 H 100 H Respiratory 21 21 23 Rate Blood Pressure 123/78 120/78 128/84 O2 Sat by Pulse 98 99 99 Oximetry 10/30/18 10/30/18 10/30/18 21:15 21:30 21:45 Temperature Pulse Rate 101 H 101 H 102 H Respiratory 22 19 22 Rate Blood Pressure 130/87 118/81 130/86 O2 Sat by Pulse 99 99 99 Oximetry 10/30/18 10/30/18 10/30/18 22:00 22:15 22:30 Temperature Pulse Rate 103 H 103 H 103 H Respiratory 21 22 20 Rate Blood Pressure 135/86 126/85 131/85 O2 Sat by Pulse 100 99 100 Oximetry 10/30/18 10/30/18 10/30/18 22:45 23:00 23:15 Temperature Pulse Rate 102 H 104 H 103 H Respiratory 21 19 19 Rate Blood Pressure 114/72 123/79 115/70 O2 Sat by Pulse 99 99 100 Oximetry 10/30/18 10/30/18 10/30/18 23:30 23:31 23:45 Temperature Pulse Rate 103 H 100 H 103 H Respiratory 20 20 Rate Blood Pressure 105/71 105/71 113/73 O2 Sat by Pulse 100 100 100 Oximetry 10/31/18 10/31/18 10/31/18 00:00 00:15 00:30 Temperature 100.9 F H Pulse Rate 103 H 104 H 105 H Respiratory 20 20 21 Rate Blood Pressure 113/73 119/81 125/84 O2 Sat by Pulse 100 100 100 Oximetry 10/31/18 10/31/18 10/31/18 00:45 01:00 01:15 Temperature Pulse Rate 106 H 107 H 106 H Respiratory 23 20 21 Rate Blood Pressure 115/79 94/67 92/65 O2 Sat by Pulse 99 99 99 Oximetry 10/31/18 10/31/18 10/31/18 01:30 01:45 02:00 Temperature Pulse Rate 106 H 106 H 107 H Respiratory 21 20 23 Rate Blood Pressure 99/65 100/65 108/70 O2 Sat by Pulse 99 99 99 Oximetry 10/31/18 10/31/18 10/31/18 02:15 02:30 02:45 Temperature Pulse Rate 108 H 108 H 108 H Respiratory 20 19 21 Rate Blood Pressure 95/62 80/53 94/67 O2 Sat by Pulse 99 99 99 Oximetry 10/31/18 10/31/18 10/31/18 03:00 03:15 03:20 Temperature Pulse Rate 102 H 108 H 100 H Respiratory 22 18 Rate Blood Pressure 102/64 97/69 97/69 O2 Sat by Pulse 99 36 L 99 Oximetry 10/31/18 10/31/18 10/31/18 03:30 03:45 04:00 Temperature 100.8 F H Pulse Rate 108 H 103 H 103 H Respiratory 22 21 21 Rate Blood Pressure 112/73 107/72 115/74 O2 Sat by Pulse 97 99 99 Oximetry 10/31/18 10/31/18 10/31/18 04:15 04:30 04:45 Temperature Pulse Rate 104 H 103 H 104 H Respiratory 22 20 22 Rate Blood Pressure 88/58 103/64 92/65 O2 Sat by Pulse 98 98 97 Oximetry 10/31/18 10/31/18 10/31/18 05:00 05:15 05:30 Temperature Pulse Rate 103 H 103 H 103 H Respiratory 21 22 21 Rate Blood Pressure 89/63 84/54 69/40 O2 Sat by Pulse 97 98 98 Oximetry 10/31/18 10/31/18 05:45 06:00 Temperature Pulse Rate 103 H 103 H Respiratory 21 21 Rate Blood Pressure 68/38 80/57 O2 Sat by Pulse 98 99 Oximetry - General Appearance General appearance: well-developed, appears stated age, intubated, other (on vent) EENT: ATNC Neck: supple Respiratory: Present: Clear to Ascultation Cardiology: regular, S1S2, no murmurs Gastrointestinal: normoactive bowel sounds, no tenderness Neurologic: obtunded Musculoskeletal: other (right arm AVF, right AKA, left TMA) - Lab 10/31/18 04:43 10/31/18 04:43 Most recent lab results Calcium 8.5 mg/dL (8.4-10.2) 10/31/18 04:43 Phosphorus 3.70 mg/dL (2.5-4.5) 10/31/18 04:43 Medications & Allergies - Medications Allergies/Adverse Reactions: Allergies No Known Allergies Allergy (Verified 01/18/18 20:10) Home Medications: Home Medications Medication Instructions Recorded Confirmed Last Taken Type Acetaminophen [Acetaminophen TAB] 650 mg PO Q4H PRN 03/12/18 10/31/18 Unknown History Calcium Acetate [Phoslo] 667 mg PO TID 03/12/18 10/31/18 05/13/18 17:00 History Carvedilol [Coreg] 6.25 mg PO BID 03/12/18 10/31/18 05/13/18 09:00 History Ergocalciferol 50,000 unit PO QWEEK 03/12/18 10/31/18 05/11/18 09:00 History Apixaban [Eliquis] 2.5 mg PO BID tablet 08/21/18 10/31/18 Unknown Rx Megestrol [Megace] 400 mg PO QDAY 10/31/18 10/31/18 Unknown History Mirtazapine [Remeron] 15 mg PO QHS 10/31/18 10/31/18 Unknown History Elaine-José Rx Tablet 1 tab PO QDAY 10/31/18 10/31/18 Unknown History Sodium Bicarbonate 650 mg PO BID 10/31/18 10/31/18 Unknown History traMADol [Ultram 50 MG tab] 25 mg PO Q12H PRN 10/31/18 10/31/18 Unknown History Active Medications: Generic Name Dose Route Start Last Admin Trade Name Freq PRN Reason Stop Dose Admin Lipase/Protease/Amylase 1 each 10/30/18 11:[address] 10,500 Unit FEEDTUBE PRN PRN For Clogged Feeding Tube Famotidine 20 mg 10/30/18 10:00 10/30/18 09:47 Pepcid IV 20 mg DAILY KIRSTEN Administration Heparin Sodium (Porcine) 5,000 unit 10/29/18 22:00 10/31/18 06:01 Heparin SUB-Q 5,000 unit Q8HR KIRSTEN Administration Sodium Chloride 100 mls @ 999 mls/hr 10/29/18 19:01 Nacl 0.9% IV ALEJO PRN Hypotension Ceftriaxone Sodium 1 gm in 50 mls @ 100 mls/hr 10/30/18 10:00 10/30/18 09:46 Rocephin/Ns 1 Gm/50 Ml IV 100 mls/hr Q24HR KIRSTEN Administration Protocol Norepinephrine 4 mg in 250 mls @ 7.5 mls/hr 10/30/18 01:00 10/31/18 06:01 Levophed Drip 4 Mg/Ns 250 Ml IV 12 mcg/min TITR KIRSTEN 45 mls/hr Titration Protocol 2 MCG/MIN Insulin Human Lispro 0 unit 10/30/18 10:00 10/31/18 06:02 Humalog SUB-Q Not Given Q6HR KIRSTEN Protocol Simple Syrup 15 ml 10/30/18 11:37 Simple Syrup FEEDTUBE PRN PRN Hypoglycemia Simple Syrup 30 ml 10/30/18 11:37 10/30/18 18:43 Simple Syrup FEEDTUBE 30 ml PRN PRN Administration Hypoglycemia Sodium Bicarbonate 325 mg 10/30/18 11:37 Sodium Bicarbonate FEEDTUBE PRN PRN For Clogged Feeding Tube
--- NOTE | 2018-10-31 08:57 | Progress Note ---
Assessment and Plan -s/p PEA arrest -Acute hypoxic respiratory failure on MVS -Acute encephalopathy( toxic, metabolic) -Severe protein calorie malnutrition -Hyperkalemia -ESRD on HD -Hyperosmolar hyperglycemic state -Hypotension, multifactorial, ?sepsis, dehydration -Hypernatremia -PVD s/p right BKA -Prostate cancer s/p suprapubic catheter -Continue with MVS -Lung protective strategies -Supplemental oxygen, wean for O2 sats>90% -Daily SBTs as tolerated -VTE prophylaxis( heparin) -Stress ulcer prophylaxis( Famotidine) -High dose sliding scale insulin with accuchecks -Place small bowel feeding tube, check placement -Nutrition consult for tube feedings -Free water flushes -Wound consult -Supportive HD -Follow cultures. The patient is currently on Ceftriaxone. Follow cultures, then de-escalate based on ID and TOÑO -Wean vasopressor support for MAP>65 -Volume resuscitation -ABG and CXR in am -Serial BMP to monitor sodium levels CONDITION: CRITICAL PROGNOSIS: GUARDED CODE STATUS: FULL Discussed with ICU care team during IDT rounds I have spent 35 minutes in the direct care of this critically ill patient, excluding procedure time. Critical care time was spent on this patient and during his initial evaluation, multiple re-evaluations, ordering and interpretation of labs and imaging, medications, discussion with the ICU care team. There is a high probability of clinically significant, sudden, or life- threatening deterioration that has required multiple evaluations and direct attention, intervention, and management. Subjective Date of service: 10/31/18 Principal diagnosis: sepsis, acute resp, failure. Interval history: Patient is seen today for: Acute hypoxemic respiratory failure on MVS; Severe sepsis with septic shock; acute encephaloapthy; Seen and examined at bedside; 24hour events reviewed; nursing and respiratory care staff consulted; Fevers of 102.9, hypotension Remains unresponsive, on mechanical ventilatory support, no dys-synchrony Objective - Exam Narrative Exam: Physical Exam: Constitutional: unresponsive. on mechnaical ventilatory support Head, Ears, Nose: Normocephalic, atraumatic. External ears, nose normal. Eyes: Conjunctivae/corneas clear. No icterus. No ptosis. Neck: trach + Cardiovascular: S1, S2 normal. Respiratory: Good air entry, clear to auscultation bilaterally GI: Soft, bowel sounds +. PEG + Suprapubic catheter + Musculoskeletal: Right AKA, left TMA stumps healed. Right gluteal region with eschar. Left femoral trialysis cath +. Edema + Skin: No rash or abscess Hem/Lymphatic: No palpable cervical or supraclavicular nodes. No lymphangitis Psych: no agitation Neurological: unresponsive, intubated, on vent. Vital Signs - 12hr 10/30/18 10/30/18 10/30/18 21:00 21:15 21:30 Temperature Pulse Rate 100 H 101 H 101 H Respiratory 23 22 19 Rate Blood Pressure 128/84 130/87 118/81 O2 Sat by Pulse 99 99 99 Oximetry 10/30/18 10/30/18 10/30/18 21:45 22:00 22:15 Temperature Pulse Rate 102 H 103 H 103 H Respiratory 22 21 22 Rate Blood Pressure 130/86 135/86 126/85 O2 Sat by Pulse 99 100 99 Oximetry 10/30/18 10/30/18 10/30/18 22:30 22:45 23:00 Temperature Pulse Rate 103 H 102 H 104 H Respiratory 20 21 19 Rate Blood Pressure 131/85 114/72 123/79 O2 Sat by Pulse 100 99 99 Oximetry 10/30/18 10/30/18 10/30/18 23:15 23:30 23:31 Temperature Pulse Rate 103 H 103 H 100 H Respiratory 19 20 Rate Blood Pressure 115/70 105/71 105/71 O2 Sat by Pulse 100 100 100 Oximetry 10/30/18 10/31/18 10/31/18 23:45 00:00 00:15 Temperature 100.9 F H Pulse Rate 103 H 103 H 104 H Respiratory 20 20 20 Rate Blood Pressure 113/73 113/73 119/81 O2 Sat by Pulse 100 100 100 Oximetry 10/31/18 10/31/18 10/31/18 00:30 00:45 01:00 Temperature Pulse Rate 105 H 106 H 107 H Respiratory 21 23 20 Rate Blood Pressure 125/84 115/79 94/67 O2 Sat by Pulse 100 99 99 Oximetry 10/31/18 10/31/18 10/31/18 01:15 01:30 01:45 Temperature Pulse Rate 106 H 106 H 106 H Respiratory 21 21 20 Rate Blood Pressure 92/65 99/65 100/65 O2 Sat by Pulse 99 99 99 Oximetry 10/31/18 10/31/18 10/31/18 02:00 02:15 02:30 Temperature Pulse Rate 107 H 108 H 108 H Respiratory 23 20 19 Rate Blood Pressure 108/70 95/62 80/53 O2 Sat by Pulse 99 99 99 Oximetry 10/31/18 10/31/18 10/31/18 02:45 03:00 03:15 Temperature Pulse Rate 108 H 102 H 108 H Respiratory 21 22 18 Rate Blood Pressure 94/67 102/64 97/69 O2 Sat by Pulse 99 99 36 L Oximetry 10/31/18 10/31/18 10/31/18 03:20 03:30 03:45 Temperature Pulse Rate 100 H 108 H 103 H Respiratory 22 21 Rate Blood Pressure 97/69 112/73 107/72 O2 Sat by Pulse 99 97 99 Oximetry 10/31/18 10/31/18 10/31/18 04:00 04:15 04:30 Temperature 100.8 F H Pulse Rate 103 H 104 H 103 H Respiratory 21 22 20 Rate Blood Pressure 115/74 88/58 103/64 O2 Sat by Pulse 99 98 98 Oximetry 10/31/18 10/31/18 10/31/18 04:45 05:00 05:15 Temperature Pulse Rate 104 H 103 H 103 H Respiratory 22 21 22 Rate Blood Pressure 92/65 89/63 84/54 O2 Sat by Pulse 97 97 98 Oximetry 10/31/18 10/31/18 10/31/18 05:30 05:45 06:00 Temperature Pulse Rate 103 H 103 H 103 H Respiratory 21 21 21 Rate Blood Pressure 69/40 68/38 80/57 O2 Sat by Pulse 98 98 99 Oximetry 10/31/18 10/31/18 10/31/18 06:15 06:30 06:45 Temperature Pulse Rate 103 H 102 H 103 H Respiratory 20 21 22 Rate Blood Pressure 111/72 96/66 83/51 O2 Sat by Pulse 99 97 96 Oximetry 10/31/18 10/31/18 10/31/18 07:00 07:15 07:30 Temperature Pulse Rate 102 H 102 H 102 H Respiratory 22 20 21 Rate Blood Pressure 98/65 104/68 104/72 O2 Sat by Pulse 98 98 97 Oximetry 10/31/18 10/31/18 10/31/18 07:45 08:00 08:08 Temperature 99.9 F H Pulse Rate 103 H 102 H 102 H Respiratory 24 20 Rate Blood Pressure 83/49 100/67 100/67 O2 Sat by Pulse 96 97 97 Oximetry 10/31/18 10/31/18 10/31/18 08:12 08:15 08:30 Temperature Pulse Rate 102 H 103 H 103 H Respiratory 29 H 29 H 29 H Rate Blood Pressure 100/67 104/69 103/66 O2 Sat by Pulse 98 97 97 Oximetry CBC and BMP: 11/16/18 05:45 11/16/18 05:45 ABG, PT/INR, D-dimer: ABG POC ABG pH 7.433 (7.35-7.45) 10/30/18 04:35 POC ABG pCO2 34.9 (35-45) L 10/30/18 04:35 POC ABG pO2 144 (80-105) H 10/30/18 04:35 POC ABG HCO3 23.3 (22-26 mml/L) 10/30/18 04:35 POC ABG Total CO2 24 (23-27mmol/L) 10/30/18 04:35 POC ABG O2 Sat 99 10/30/18 04:35 Abnormal lab findings: Abnormal Labs 10/29/18 10/29/18 10/29/18 17:13 17:13 17:13 RBC 3.62 L Hgb MCV 102 H MCH 34 H RDW 19.6 H Castro % (Auto) 7.8 H Seg Neutrophils % 71.2 H Lymphocytes % (Manual) Lymphocytes # (Manual) POC ABG pH POC ABG pCO2 POC ABG pO2 Sodium 164 H* Potassium 6.2 H* Chloride 127.5 H Carbon Dioxide BUN 178 H Creatinine 4.2 H Glucose 131 H POC Glucose Calcium 10.7 H C-Reactive Protein Total Protein 9.5 H Albumin 2.6 L TSH 5.310 H Urine pH Urine WBC (Auto) 10/29/18 10/30/18 10/30/18 23:57 00:06 04:35 RBC Hgb MCV MCH RDW Castro % (Auto) Seg Neutrophils % Lymphocytes % (Manual) Lymphocytes # (Manual) POC ABG pH 7.488 H POC ABG pCO2 32.1 L 34.9 L POC ABG pO2 144 H Sodium Potassium Chloride Carbon Dioxide BUN Creatinine Glucose POC Glucose 131 H Calcium C-Reactive Protein Total Protein Albumin TSH Urine pH Urine WBC (Auto) 10/30/18 10/30/18 10/30/18 05:13 08:54 08:54 RBC 3.56 L Hgb 11.7 L MCV 102 H MCH 33 H RDW 19.2 H Castro % (Auto) Seg Neutrophils % Lymphocytes % (Manual) Lymphocytes # (Manual) POC ABG pH POC ABG pCO2 POC ABG pO2 Sodium Potassium Chloride Carbon Dioxide BUN Creatinine Glucose POC Glucose 316 H Calcium C-Reactive Protein 5.20 H Total Protein Albumin 2.2 L TSH Urine pH Urine WBC (Auto) 10/30/18 10/30/18 10/30/18 08:59 12:03 18:30 RBC Hgb MCV MCH RDW Castro % (Auto) Seg Neutrophils % Lymphocytes % (Manual) Lymphocytes # (Manual) POC ABG pH POC ABG pCO2 POC ABG pO2 Sodium 146 H D Potassium Chloride Carbon Dioxide BUN 86 H Creatinine 2.7 H Glucose 262 H POC Glucose 232 H 57 L Calcium C-Reactive Protein Total Protein Albumin TSH Urine pH Urine WBC (Auto) 10/30/18 10/30/18 10/30/18 18:39 19:07 19:42 RBC Hgb MCV MCH RDW Castro % (Auto) Seg Neutrophils % Lymphocytes % (Manual) Lymphocytes # (Manual) POC ABG pH POC ABG pCO2 POC ABG pO2 Sodium Potassium Chloride Carbon Dioxide BUN Creatinine Glucose POC Glucose < 40 L 51 L Calcium C-Reactive Protein Total Protein Albumin TSH Urine pH 8.0 H Urine WBC (Auto) > 182.0 H 10/30/18 10/30/18 10/30/18 19:51 23:13 23:20 RBC Hgb MCV MCH RDW Castro % (Auto) Seg Neutrophils % Lymphocytes % (Manual) Lymphocytes # (Manual) POC ABG pH POC ABG pCO2 POC ABG pO2 Sodium Potassium Chloride 108.5 H Carbon Dioxide 21 L BUN 96 H Creatinine 3.0 H Glucose 865 H* 150 H POC Glucose 152 H Calcium C-Reactive Protein Total Protein Albumin TSH Urine pH Urine WBC (Auto) 10/30/18 10/31/18 10/31/18 23:40 04:43 04:43 RBC Hgb MCV 100 H MCH 33 H RDW 18.1 H Castro % (Auto) Seg Neutrophils % Lymphocytes % (Manual) 4.0 L Lymphocytes # (Manual) 0.3 L POC ABG pH POC ABG pCO2 POC ABG pO2 Sodium Potassium Chloride Carbon Dioxide 19 L BUN 98 H Creatinine 3.2 H Glucose 184 H POC Glucose 145 H Calcium C-Reactive Protein Total Protein Albumin TSH Urine pH Urine WBC (Auto) 10/31/18 05:44 RBC Hgb MCV MCH RDW Castro % (Auto) Seg Neutrophils % Lymphocytes % (Manual) Lymphocytes # (Manual) POC ABG pH POC ABG pCO2 POC ABG pO2 Sodium Potassium Chloride Carbon Dioxide BUN Creatinine Glucose POC Glucose 142 H Calcium C-Reactive Protein Total Protein Albumin TSH Urine pH Urine WBC (Auto)
[2018-10-31] MEDS: ROCEPHIN/NS 1 GM/50 ML 1 GM/50 ML BAG IV SCH (09:46)
[2018-10-31] MEDS: PEPCID IV SCH (09:46)
[2018-10-31] MEDS ORDERED: NACL 0.9% 500 ML IV SCH (10:00)
--- NOTE | 2018-10-31 13:00 | Operative Report ---
Operative Report Operative Report: EXAM: 1. Ultrasound-guided puncture of the left common femoral vein 2. Placement of a left common femoral vein nontunneled noncuffed catheter. DATE: 10/31/18 INDICATION: On pressors, end-stage renal disease, no central IV access. Intubated. Multiple accesses in the neck in the past. MEDICATIONS: Local anesthetic (1% lidocaine). TRAINMASTER: LINDA MEYERS MD DEVICES: 7F triple lumen nontunneled noncuffed catheter CONTRAST: None PROCEDURE: The risks, benefits, and alternatives were discussed and informed consent was obtained. The patient's left common femoral vein was assessed with ultrasound at bedside and determined to be patent prior to procedure. The patient was prepped and draped in a sterile fashion. The puncture site was anesthetized. Under sonographic guidance, the left common femoral vein was punctured with a 18-gauge micropuncture needle and a 0.035 inch wire was advanced through the needle. Over the 0.035 inch wire, dilatation was performed. The catheter was advanced over the wire. 2-0 silk suture was used to secure the catheter. The catheter was charged with saline. Biopatch and tegaderm were applied. Sterile dressing applied. FINDINGS: 1. Ultrasound documented patency of the left common femoral vein. The vessel was accessed under direct ultrasound guidance. IMPRESSION: 1. Successful ultrasound guided bedside placement of a left common femoral vein nontunneled noncuffed triple lumen catheter.
--- NOTE | 2018-10-31 13:07 | Post Operative Note ---
Date of procedure: 10/31/18 Pre-op diagnosis: ESRD with need for pressor support with inability Post-op diagnosis: same Procedure: L CFV TLC catheter placement Anesthesia: local (w/ conscious sedation) Surgeon: LINDA MEYERS Estimated blood loss: minimal Condition: stable Disposition: no change
--- NOTE | 2018-10-31 23:31 | Progress Note ---
Assessment and Plan - Patient Problems (1) Altered mental status Current Visit: Yes Status: Acute Qualifiers: Altered mental status type: unspecified Qualified Code(s): R41.82 - Altered mental status, unspecified Plan to address problem: most likely due to sinus infection. (2) Hyperkalemia Current Visit: Yes Status: Acute Plan to address problem: Treated, and continue to correct with HD. corrected. (3) Hypernatremia Current Visit: Yes Status: Acute Plan to address problem: correct with HD. As above when feasible with the Renal service. (4) Uremia Current Visit: Yes Status: Acute Plan to address problem: treat underlying cause. (5) Acute encephalopathy Current Visit: Yes Status: Chronic Plan to address problem: supportive care. (6) ESRD needing dialysis Current Visit: Yes Status: Chronic Plan to address problem: Continue on HD. as above once feasible. (7) Sepsis Current Visit: Yes Status: Acute Plan to address problem: treat the etiology.Most likely due to sinus infection. Subjective Date of service: 10/31/18 Principal diagnosis: sepsis, acute resp, failure. Interval history: Patient seen/examined,in the ICU. I have spoken to the daughter, and his sister today, regarding plan of care, and prognosis. I have rec less agressive path, including hospice. They will think about it ,and let me know. Mean while, will continue current management. His prognosis is quite poor at this time. Patient seen/examined, resting in bed, labs reviewed.Still on the vent.If unable to be weaned off the vent, on timely /expected time, will push for [facility] eval[facility] at [facility] to start preparing fot this possibility. Objective - Constitutional Vitals: Vital Signs - 12hr 10/31/18 10/31/18 10/31/18 11:30 11:45 12:00 Temperature 98.9 F Pulse Rate 102 H 102 H 102 H Pulse Rate [ From Monitor] Pulse Rate [ Right Radial] Respiratory 34 H 33 H 32 H Rate Blood Pressure 100/67 100/66 94/64 O2 Sat by Pulse 93 93 93 Oximetry 10/31/18 10/31/18 10/31/18 12:15 12:30 12:45 Temperature Pulse Rate 101 H 100 H 99 H Pulse Rate [ From Monitor] Pulse Rate [ Right Radial] Respiratory 32 H 30 H 30 H Rate Blood Pressure 93/63 94/60 101/65 O2 Sat by Pulse 93 94 95 Oximetry 10/31/18 10/31/18 10/31/18 13:00 13:14 13:15 Temperature Pulse Rate 99 H 98 H 98 H Pulse Rate [ From Monitor] Pulse Rate [ Right Radial] Respiratory 30 H 30 H 30 H Rate Blood Pressure 94/64 107/69 107/69 O2 Sat by Pulse 95 95 95 Oximetry 10/31/18 10/31/18 10/31/18 13:19 13:30 13:45 Temperature Pulse Rate 98 H 99 H 100 H Pulse Rate [ From Monitor] Pulse Rate [ Right Radial] Respiratory 21 22 Rate Blood Pressure 107/69 98/71 92/62 O2 Sat by Pulse 95 95 94 Oximetry 10/31/18 10/31/18 10/31/18 14:00 14:15 14:30 Temperature Pulse Rate 101 H 101 H 102 H Pulse Rate [ From Monitor] Pulse Rate [ Right Radial] Respiratory 22 25 H 26 H Rate Blood Pressure 93/59 95/57 92/60 O2 Sat by Pulse 93 94 94 Oximetry 10/31/18 10/31/18 10/31/18 14:45 15:00 15:15 Temperature Pulse Rate 102 H 101 H 100 H Pulse Rate [ From Monitor] Pulse Rate [ Right Radial] Respiratory 23 24 24 Rate Blood Pressure 82/58 92/67 97/67 O2 Sat by Pulse 94 95 95 Oximetry 10/31/18 10/31/18 10/31/18 15:30 15:45 15:56 Temperature 98.0 F Pulse Rate 100 H 100 H Pulse Rate [ From Monitor] Pulse Rate [ Right Radial] Respiratory 22 25 H Rate Blood Pressure 104/67 101/66 O2 Sat by Pulse 95 95 Oximetry 10/31/18 10/31/18 10/31/18 16:00 16:15 16:30 Temperature Pulse Rate 100 H 99 H 99 H Pulse Rate [ From Monitor] Pulse Rate [ Right Radial] Respiratory 21 22 22 Rate Blood Pressure 101/67 97/68 103/74 O2 Sat by Pulse 95 95 95 Oximetry 10/31/18 10/31/18 10/31/18 16:37 16:45 17:00 Temperature Pulse Rate 100 H 99 H 98 H Pulse Rate [ From Monitor] Pulse Rate [ Right Radial] Respiratory 23 20 Rate Blood Pressure 103/74 106/71 93/61 O2 Sat by Pulse 95 95 96 Oximetry 10/31/18 10/31/18 10/31/18 17:15 17:30 17:45 Temperature Pulse Rate 96 H 95 H 95 H Pulse Rate [ From Monitor] Pulse Rate [ Right Radial] Respiratory 23 24 22 Rate Blood Pressure 88/58 93/65 102/71 O2 Sat by Pulse 94 95 96 Oximetry 10/31/18 10/31/18 10/31/18 18:00 18:15 18:30 Temperature Pulse Rate 95 H 94 H 94 H Pulse Rate [ From Monitor] Pulse Rate [ Right Radial] Respiratory 21 21 22 Rate Blood Pressure 87/60 86/60 77/53 O2 Sat by Pulse 96 96 95 Oximetry 10/31/18 10/31/18 10/31/18 18:45 19:00 19:15 Temperature Pulse Rate 93 H 93 H 94 H Pulse Rate [ From Monitor] Pulse Rate [ Right Radial] Respiratory 22 23 24 Rate Blood Pressure 89/62 90/62 92/64 O2 Sat by Pulse 96 96 96 Oximetry 10/31/18 10/31/18 10/31/18 19:30 19:44 19:45 Temperature Pulse Rate 93 H 96 H 94 H Pulse Rate [ From Monitor] Pulse Rate [ Right Radial] Respiratory 23 23 Rate Blood Pressure 92/64 96/67 96/67 O2 Sat by Pulse 96 96 96 Oximetry 10/31/18 10/31/18 10/31/18 20:00 20:15 20:30 Temperature 99.0 F Pulse Rate 94 H 94 H 94 H Pulse Rate [ 95 H From Monitor] Pulse Rate [ 95 H Right Radial] Respiratory 23 24 24 Rate Blood Pressure 104/68 99/68 105/72 O2 Sat by Pulse 96 96 96 Oximetry 10/31/18 10/31/18 10/31/18 20:45 21:00 21:15 Temperature Pulse Rate 95 H 96 H 96 H Pulse Rate [ From Monitor] Pulse Rate [ Right Radial] Respiratory 21 24 24 Rate Blood Pressure 113/72 102/68 107/71 O2 Sat by Pulse 97 95 95 Oximetry 10/31/18 10/31/18 10/31/18 21:30 21:45 23:21 Temperature Pulse Rate 98 H 98 H 99 H Pulse Rate [ From Monitor] Pulse Rate [ Right Radial] Respiratory 20 24 Rate Blood Pressure 100/66 138/79 114/68 O2 Sat by Pulse 98 97 95 Oximetry General appearance: Present: cachectic - EENT Eyes: PERRL, EOM intact ENT: hearing intact, clear oral mucosa Ears: bilateral: normal - Neck Neck: supple, normal ROM - Breasts Breasts: deferred - Cardiovascular Rhythm: regular Heart Sounds: Present: S1 & S2. Absent: gallop, rub Extremities: pulses intact, No edema, normal color, Full ROM - Gastrointestinal General gastrointestinal: Present: soft, non-tender, non-distended, normal bowel sounds Rectal Exam: deferred - Genitourinary Male genitourinary: deferred - Integumentary Integumentary: clear, warm, dry - Labs CBC & Chem 7: 10/31/18 04:43 10/31/18 04:43 Labs: Abnormal lab results 10/30/18 10/30/18 10/31/18 Range/Units 23:20 23:40 04:43 MCV 100 H (84-94) fl MCH 33 H (28-32) pg RDW 18.1 H (13.2-15.2) % Lymphocytes % (Manual) 4.0 L (13.4-35.0) % Lymphocytes # (Manual) 0.3 L (1.2-5.4) K/mm3 POC ABG pO2 (80-105) Chloride 108.5 H (98-107) mmol/L Carbon Dioxide 21 L (22-30) mmol/L BUN 96 H (9-20) mg/dL Creatinine 3.0 H (0.8-1.5) mg/dL Glucose 150 H (75-100) mg/dL POC Glucose 145 H (70-105) 10/31/18 10/31/18 10/31/18 Range/Units 04:43 05:44 11:44 MCV (84-94) fl MCH (28-32) pg RDW (13.2-15.2) % Lymphocytes % (Manual) (13.4-35.0) % Lymphocytes # (Manual) (1.2-5.4) K/mm3 POC ABG pO2 (80-105) Chloride (98-107) mmol/L Carbon Dioxide 19 L (22-30) mmol/L BUN 98 H (9-20) mg/dL Creatinine 3.2 H (0.8-1.5) mg/dL Glucose 184 H (75-100) mg/dL POC Glucose 142 H 196 H (70-105) 10/31/18 10/31/18 Range/Units 13:19 17:36 MCV (84-94) fl MCH (28-32) pg RDW (13.2-15.2) % Lymphocytes % (Manual) (13.4-35.0) % Lymphocytes # (Manual) (1.2-5.4) K/mm3 POC ABG pO2 64 L (80-105) Chloride (98-107) mmol/L Carbon Dioxide (22-30) mmol/L BUN (9-20) mg/dL Creatinine (0.8-1.5) mg/dL Glucose (75-100) mg/dL POC Glucose 174 H (70-105) Medications & Allergies - Medications Allergies/Adverse Reactions: Allergies No Known Allergies Allergy (Verified 01/18/18 20:10) Home Medications: Home Medications Medication Instructions Recorded Confirmed Last Taken Type Acetaminophen [Acetaminophen TAB] 650 mg PO Q4H PRN 03/12/18 10/31/18 Unknown History Calcium Acetate [Phoslo] 667 mg PO TID 03/12/18 10/31/18 05/13/18 17:00 History Carvedilol [Coreg] 6.25 mg PO BID 03/12/18 10/31/18 05/13/18 09:00 History Ergocalciferol 50,000 unit PO QWEEK 03/12/18 10/31/18 05/11/18 09:00 History Apixaban [Eliquis] 2.5 mg PO BID tablet 08/21/18 10/31/18 Unknown Rx Megestrol [Megace] 400 mg PO QDAY 10/31/18 10/31/18 Unknown History Mirtazapine [Remeron] 15 mg PO QHS 10/31/18 10/31/18 Unknown History Elaine-José Rx Tablet 1 tab PO QDAY 10/31/18 10/31/18 Unknown History Sodium Bicarbonate 650 mg PO BID 10/31/18 10/31/18 Unknown History traMADol [Ultram 50 MG tab] 25 mg PO Q12H PRN 10/31/18 10/31/18 Unknown History Active Medications: Generic Name Dose Route Start Last Admin Trade Name Freq PRN Reason Stop Dose Admin Lipase/Protease/Amylase 1 each 10/30/18 11:[address] 10,500 Unit FEEDTUBE PRN PRN For Clogged Feeding Tube Famotidine 20 mg 10/30/18 10:00 10/31/18 09:46 Pepcid IV 20 mg DAILY KIRSTEN Administration Heparin Sodium (Porcine) 5,000 unit 10/29/18 22:00 10/31/18 22:01 Heparin SUB-Q 5,000 unit Q8HR KIRSTEN Administration Sodium Chloride 100 mls @ 999 mls/hr 10/29/18 19:01 Nacl 0.9% IV ALEJO PRN Hypotension Ceftriaxone Sodium 1 gm in 50 mls @ 100 mls/hr 10/30/18 10:00 10/31/18 09:46 Rocephin/Ns 1 Gm/50 Ml IV 100 mls/hr Q24HR KIRSTEN Administration Protocol Norepinephrine 4 mg in 250 mls @ 7.5 mls/hr 10/30/18 01:00 10/31/18 18:45 Levophed Drip 4 Mg/Ns 250 Ml IV 2 mcg/min TITR KIRSTEN 7.5 mls/hr Titration Protocol 2 MCG/MIN Insulin Human Lispro 0 unit 10/30/18 10:00 10/31/18 17:49 Humalog SUB-Q 3 unit Q6HR KIRSTEN Administration Protocol Simple Syrup 15 ml 10/30/18 11:37 Simple Syrup FEEDTUBE PRN PRN Hypoglycemia Simple Syrup 30 ml 10/30/18 11:37 10/30/18 18:43 Simple Syrup FEEDTUBE 30 ml PRN PRN Administration Hypoglycemia Sodium Bicarbonate 325 mg 10/30/18 11:37 Sodium Bicarbonate FEEDTUBE PRN PRN For Clogged Feeding Tube
[2018-11-01] MEDS: HumaLOG SUB-Q SCH ×4 (00:36→18:34)
[2018-11-01 04:43] LABS: Hematocrit 33.6 % (35.5-45.6); Hemoglobin 11.2 gm/dl (11.8-15.2); Mean Corpuscular HGB Conc 33 % (32-34); Mean Corpuscular Volume 99 fl (84-94); Platelet Count 172 K/mm3 (140-440); Red Cell Distribution Width 17.5 % (13.2-15.2)
[2018-11-01 05:03] LABS: Calcium 7.9 mg/dL (8.4-10.2)
[2018-11-01] MEDS: HEPARIN SUB-Q SCH ×4 (06:09→22:35)
--- NOTE | 2018-11-01 09:07 | Progress Note ---
Assessment and Plan 1. ESRD: Patient was last dialzyed 3 days ago. HD today. Monitor for [employer] needs. 2. FEN: Hyperkalemia, improved. Hypernatremia, improved. 3. Respiratory failure: On vent. 4. Shock: Off pressors. No UF with HD. 5. Urosepsis. Subjective Date of service: 11/01/18 Principal diagnosis: sepsis, acute resp, failure. Interval history: Patient was seen and examined at the bedside. Objective - Vital Signs Vital signs: Vital Signs - 12hr 10/31/18 10/31/18 10/31/18 21:15 21:30 21:45 Temperature Pulse Rate 96 H 98 H 98 H Pulse Rate [ From Monitor] Pulse Rate [ Right Radial] Respiratory 24 20 24 Rate Blood Pressure 107/71 100/66 138/79 O2 Sat by Pulse 95 98 97 Oximetry 10/31/18 10/31/18 10/31/18 22:00 22:15 22:30 Temperature Pulse Rate 99 H 99 H 101 H Pulse Rate [ From Monitor] Pulse Rate [ Right Radial] Respiratory 24 27 H 20 Rate Blood Pressure 128/74 125/75 146/84 O2 Sat by Pulse 97 96 97 Oximetry 10/31/18 10/31/18 10/31/18 22:45 23:00 23:15 Temperature Pulse Rate 100 H 99 H 98 H Pulse Rate [ From Monitor] Pulse Rate [ Right Radial] Respiratory 26 H 27 H 26 H Rate Blood Pressure 128/79 122/73 114/68 O2 Sat by Pulse 94 94 94 Oximetry 10/31/18 10/31/18 10/31/18 23:21 23:30 23:45 Temperature Pulse Rate 99 H 99 H 99 H Pulse Rate [ From Monitor] Pulse Rate [ Right Radial] Respiratory 25 H 26 H Rate Blood Pressure 114/68 127/80 120/77 O2 Sat by Pulse 95 96 92 Oximetry 11/01/18 11/01/18 11/01/18 00:00 00:01 00:15 Temperature 98.7 F Pulse Rate 97 H 98 H 99 H Pulse Rate [ 99 H From Monitor] Pulse Rate [ 99 H Right Radial] Respiratory 27 H 26 H 29 H Rate Blood Pressure 108/72 108/72 114/72 O2 Sat by Pulse 93 94 93 Oximetry 11/01/18 11/01/18 11/01/18 00:30 00:45 01:00 Temperature Pulse Rate 99 H 97 H 97 H Pulse Rate [ From Monitor] Pulse Rate [ Right Radial] Respiratory 28 H 26 H 26 H Rate Blood Pressure 112/69 110/74 121/69 O2 Sat by Pulse 90 95 96 Oximetry 11/01/18 11/01/18 11/01/18 01:15 01:30 01:45 Temperature Pulse Rate 97 H 97 H 98 H Pulse Rate [ From Monitor] Pulse Rate [ Right Radial] Respiratory 26 H 25 H 26 H Rate Blood Pressure 114/74 120/73 125/80 O2 Sat by Pulse 96 96 97 Oximetry 11/01/18 11/01/18 11/01/18 02:00 02:15 02:30 Temperature Pulse Rate 96 H 97 H 96 H Pulse Rate [ From Monitor] Pulse Rate [ Right Radial] Respiratory 25 H 27 H 25 H Rate Blood Pressure 125/80 117/76 126/77 O2 Sat by Pulse 96 96 96 Oximetry 11/01/18 11/01/18 11/01/18 02:45 03:00 03:15 Temperature Pulse Rate 95 H 96 H 97 H Pulse Rate [ From Monitor] Pulse Rate [ Right Radial] Respiratory 24 31 H 28 H Rate Blood Pressure 95/62 136/80 124/76 O2 Sat by Pulse 95 94 94 Oximetry 11/01/18 11/01/18 11/01/18 03:30 03:42 03:45 Temperature Pulse Rate 97 H 97 H Pulse Rate [ 98 H From Monitor] Pulse Rate [ 95 H Right Radial] Respiratory 30 H 29 H Rate Blood Pressure 116/75 120/73 O2 Sat by Pulse 95 95 Oximetry 11/01/18 11/01/18 11/01/18 04:00 04:15 04:30 Temperature 98.8 F Pulse Rate 97 H 98 H 97 H Pulse Rate [ From Monitor] Pulse Rate [ Right Radial] Respiratory 27 H 29 H 27 H Rate Blood Pressure 104/66 113/72 113/71 O2 Sat by Pulse 95 96 96 Oximetry 11/01/18 11/01/18 11/01/18 04:45 05:00 05:15 Temperature Pulse Rate 98 H 97 H 96 H Pulse Rate [ From Monitor] Pulse Rate [ Right Radial] Respiratory 28 H 25 H 25 H Rate Blood Pressure 111/74 123/77 107/66 O2 Sat by Pulse 96 96 96 Oximetry 11/01/18 11/01/18 11/01/18 05:30 05:45 06:00 Temperature Pulse Rate 97 H 98 H 99 H Pulse Rate [ From Monitor] Pulse Rate [ Right Radial] Respiratory 25 H 26 H 26 H Rate Blood Pressure 117/69 116/69 116/69 O2 Sat by Pulse 96 96 97 Oximetry 11/01/18 11/01/18 11/01/18 06:15 06:30 06:45 Temperature Pulse Rate 101 H 101 H 102 H Pulse Rate [ From Monitor] Pulse Rate [ Right Radial] Respiratory 26 H 27 H 26 H Rate Blood Pressure 107/67 103/68 107/70 O2 Sat by Pulse 97 97 97 Oximetry 11/01/18 11/01/18 11/01/18 07:00 07:15 07:30 Temperature Pulse Rate 101 H 105 H 103 H Pulse Rate [ From Monitor] Pulse Rate [ Right Radial] Respiratory 25 H 26 H 25 H Rate Blood Pressure 107/70 123/78 108/69 O2 Sat by Pulse 97 97 97 Oximetry 11/01/18 11/01/18 11/01/18 07:45 08:00 08:15 Temperature 98.2 F Pulse Rate 103 H 104 H 105 H Pulse Rate [ From Monitor] Pulse Rate [ Right Radial] Respiratory 26 H 25 H 26 H Rate Blood Pressure 116/69 112/71 113/68 O2 Sat by Pulse 97 97 97 Oximetry 11/01/18 11/01/18 08:30 08:45 Temperature Pulse Rate 106 H 106 H Pulse Rate [ From Monitor] Pulse Rate [ Right Radial] Respiratory 26 H 26 H Rate Blood Pressure 110/71 109/65 O2 Sat by Pulse 96 97 Oximetry - General Appearance General appearance: well-developed, appears stated age, cachectic, intubated, ot her (on vent) EENT: ATNC Neck: supple Respiratory: Present: Clear to Ascultation Cardiology: regular, S1S2, no murmurs Gastrointestinal: normoactive bowel sounds, no tenderness, other (PEG tube noted) Integumentary: chronic venous stasis (left LE) Neurologic: obtunded Musculoskeletal: other (right arm AVF with bruit, right AKA) - Lab 11/01/18 04:07 11/01/18 04:07 Most recent lab results Calcium 7.9 mg/dL (8.4-10.2) L 11/01/18 04:07 Phosphorus 3.70 mg/dL (2.5-4.5) 10/31/18 04:43 Medications & Allergies - Medications Allergies/Adverse Reactions: Allergies No Known Allergies Allergy (Verified 01/18/18 20:10) Home Medications: Home Medications Medication Instructions Recorded Confirmed Last Taken Type Acetaminophen [Acetaminophen TAB] 650 mg PO Q4H PRN 03/12/18 10/31/18 Unknown History Calcium Acetate [Phoslo] 667 mg PO TID 03/12/18 10/31/18 05/13/18 17:00 History Carvedilol [Coreg] 6.25 mg PO BID 03/12/18 10/31/18 05/13/18 09:00 History Ergocalciferol 50,000 unit PO QWEEK 03/12/18 10/31/18 05/11/18 09:00 History Apixaban [Eliquis] 2.5 mg PO BID tablet 08/21/18 10/31/18 Unknown Rx Megestrol [Megace] 400 mg PO QDAY 10/31/18 10/31/18 Unknown History Mirtazapine [Remeron] 15 mg PO QHS 10/31/18 10/31/18 Unknown History Elaine-José Rx Tablet 1 tab PO QDAY 10/31/18 10/31/18 Unknown History Sodium Bicarbonate 650 mg PO BID 10/31/18 10/31/18 Unknown History traMADol [Ultram 50 MG tab] 25 mg PO Q12H PRN 10/31/18 10/31/18 Unknown History Active Medications: Generic Name Dose Route Start Last Admin Trade Name Freq PRN Reason Stop Dose Admin Lipase/Protease/Amylase 1 each 10/30/18 11:37 Pancreazjoselyn Palomo 10,500 Unit FEEDTUBE PRN PRN For Clogged Feeding Tube Famotidine 20 mg 11/01/18 10:00 Pepcid PO DAILY KIRSTEN Heparin Sodium (Porcine) 5,000 unit 10/29/18 22:00 11/01/18 06:09 Heparin SUB-Q 5,000 unit Q8HR KIRSTEN Administration Sodium Chloride 100 mls @ 999 mls/hr 10/29/18 19:01 Nacl 0.9% IV ALEJO PRN Hypotension Ceftriaxone Sodium 1 gm in 50 mls @ 100 mls/hr 10/30/18 10:00 10/31/18 09:46 Rocephin/Ns 1 Gm/50 Ml IV 11/05/18 10:29 100 mls/hr Q24HR KIRSTEN Administration Protocol Norepinephrine 4 mg in 250 mls @ 7.5 mls/hr 10/30/18 01:00 10/31/18 18:45 Levophed Drip 4 Mg/Ns 250 Ml IV 2 mcg/min TITR KIRSTEN 7.5 mls/hr Titration Protocol 2 MCG/MIN Insulin Human Lispro 0 unit 10/30/18 10:00 11/01/18 06:11 Humalog SUB-Q 3 unit Q6HR KIRSTEN Administration Protocol Simple Syrup 15 ml 10/30/18 11:37 Simple Syrup FEEDTUBE PRN PRN Hypoglycemia Simple Syrup 30 ml 10/30/18 11:37 10/30/18 18:43 Simple Syrup FEEDTUBE 30 ml PRN PRN Administration Hypoglycemia Sodium Bicarbonate 325 mg 10/30/18 11:37 Sodium Bicarbonate FEEDTUBE PRN PRN For Clogged Feeding Tube
[2018-11-01] MEDS ORDERED: NACL 0.9% 100 ML IV PRN (09:22)
[2018-11-01] MEDS ORDERED: PANCREAZE DR 10,500 UNIT FEEDTUBE PRN (10:04)
[2018-11-01] MEDS ORDERED: SIMPLE SYRUP FEEDTUBE PRN ×2 (10:04)
[2018-11-01] MEDS ORDERED: SODIUM BICARBONATE FEEDTUBE PRN (10:04)
[2018-11-01] MEDS: PEPCID PO SCH (10:15)
[2018-11-01 10:22] LABS: Anisocytosis 1+; Band Neutrophils # (Manual) 0.9 K/mm3; Eosinophils % (Manual) 0 % (0.0-4.3); Platelet Estimate Consistent w Auto; Total Cells Counted 100
[2018-11-01] MEDS: ROCEPHIN/NS 1 GM/50 ML 1 GM/50 ML BAG IV SCH (11:00)
--- NOTE | 2018-11-01 13:28 | Progress Note ---
Assessment and Plan -s/p PEA arrest -Severe sepsis with septic shock -Acute hypoxic respiratory failure on MVS -Acute encephalopathy( toxic, metabolic) -Severe protein calorie malnutrition -Hyperkalemia -ESRD on HD -Hyperosmolar hyperglycemic state, imroving -Hypernatremia -PVD s/p right BKA -Prostate cancer s/p suprapubic catheter Continue with antibiotics, vasopressor support Wean vasopressors for MAP >65 No weaning trials at this time secondary to hemodynamic instability Discussed with the daughters who state he is to be full code and full aggressive care Discussed in ICU-IDT rounds -Continue with MVS -Lung protective strategies -Supplemental oxygen, wean for O2 sats>90% -Daily SBTs when hemodynamically normal -VTE prophylaxis( heparin) -Stress ulcer prophylaxis( Famotidine) -High dose sliding scale insulin with accuchecks -Enteric nutrition with aspiration precautions -HOB>40 -Free water flushes -Wound care on going -Supportive HD, per Renal service -Antibiotics per ID -Wean vasopressor support for MAP.65 -ABG and CXR daily for the next few days CONDITION: CRITICAL PROGNOSIS: GUARDED CODE STATUS: FULL I have spent 35 minutes in the direct care of this critically ill patient, excluding procedure time. Critical care time was spent on this patient and during his initial evaluation, multiple re-evaluations, ordering and interpretation of labs and imaging, medications, discussion with the ICU care team. There is a high probability of clinically significant, sudden, or life- threatening deterioration that has required multiple evaluations and direct attention, intervention, and management. Subjective Date of service: 11/01/18 Principal diagnosis: sepsis, acute resp, failure. Interval history: Patient is seen today for: Acute hypoxemic respiratory failure on MVS; Severe sepsis with septic shock; acute encephaloapthy; Seen and examined at bedside; 24hour events reviewed; nursing and respiratory care staff consulted; On going fevers, no vomiting, remains on norepinephrine for hemodynamic support and on full mechanical ventilatory support Remains unresponsive Objective - Exam Narrative Exam: Physical Exam: Constitutional: unresponsive. on mechnaical ventilatory support Head, Ears, Nose: Normocephalic, atraumatic. External ears, nose normal. Eyes: Conjunctivae/corneas clear. No icterus. No ptosis. Neck: trach + Cardiovascular: S1, S2 normal. Respiratory: Good air entry, clear to auscultation bilaterally GI: Soft, bowel sounds +. PEG + Suprapubic catheter + Musculoskeletal: Right AKA, left TMA stumps healed. Right gluteal region with eschar. Left femoral trialysis cath +. Edema + Skin: No rash or abscess Hem/Lymphatic: No palpable cervical or supraclavicular nodes. No lymphangitis Psych: no agitation Neurological: unresponsive, intubated, on vent. Vital Signs - 12hr 11/01/18 11/01/18 11/01/18 01:30 01:45 02:00 Temperature Pulse Rate 97 H 98 H 96 H Pulse Rate [ From Monitor] Pulse Rate [ Right Radial] Respiratory 25 H 26 H 25 H Rate Blood Pressure 120/73 125/80 125/80 O2 Sat by Pulse 96 97 96 Oximetry 11/01/18 11/01/18 11/01/18 02:15 02:30 02:45 Temperature Pulse Rate 97 H 96 H 95 H Pulse Rate [ From Monitor] Pulse Rate [ Right Radial] Respiratory 27 H 25 H 24 Rate Blood Pressure 117/76 126/77 95/62 O2 Sat by Pulse 96 96 95 Oximetry 11/01/18 11/01/18 11/01/18 03:00 03:15 03:30 Temperature Pulse Rate 96 H 97 H 97 H Pulse Rate [ From Monitor] Pulse Rate [ Right Radial] Respiratory 31 H 28 H 30 H Rate Blood Pressure 136/80 124/76 116/75 O2 Sat by Pulse 94 94 95 Oximetry 11/01/18 11/01/18 11/01/18 03:42 03:45 04:00 Temperature 98.8 F Pulse Rate 97 H 97 H Pulse Rate [ 98 H From Monitor] Pulse Rate [ 95 H Right Radial] Respiratory 29 H 27 H Rate Blood Pressure 120/73 104/66 O2 Sat by Pulse 95 95 Oximetry 11/01/18 11/01/18 11/01/18 04:15 04:30 04:45 Temperature Pulse Rate 98 H 97 H 98 H Pulse Rate [ From Monitor] Pulse Rate [ Right Radial] Respiratory 29 H 27 H 28 H Rate Blood Pressure 113/72 113/71 111/74 O2 Sat by Pulse 96 96 96 Oximetry 11/01/18 11/01/18 11/01/18 05:00 05:15 05:30 Temperature Pulse Rate 97 H 96 H 97 H Pulse Rate [ From Monitor] Pulse Rate [ Right Radial] Respiratory 25 H 25 H 25 H Rate Blood Pressure 123/77 107/66 117/69 O2 Sat by Pulse 96 96 96 Oximetry 11/01/18 11/01/18 11/01/18 05:45 06:00 06:15 Temperature Pulse Rate 98 H 99 H 101 H Pulse Rate [ From Monitor] Pulse Rate [ Right Radial] Respiratory 26 H 26 H 26 H Rate Blood Pressure 116/69 116/69 107/67 O2 Sat by Pulse 96 97 97 Oximetry 11/01/18 11/01/18 11/01/18 06:30 06:45 07:00 Temperature Pulse Rate 101 H 102 H 101 H Pulse Rate [ From Monitor] Pulse Rate [ Right Radial] Respiratory 27 H 26 H 25 H Rate Blood Pressure 103/68 107/70 107/70 O2 Sat by Pulse 97 97 97 Oximetry 11/01/18 11/01/18 11/01/18 07:15 07:30 07:45 Temperature Pulse Rate 105 H 103 H 103 H Pulse Rate [ From Monitor] Pulse Rate [ Right Radial] Respiratory 26 H 25 H 26 H Rate Blood Pressure 123/78 108/69 116/69 O2 Sat by Pulse 97 97 97 Oximetry 11/01/18 11/01/18 11/01/18 08:00 08:15 08:30 Temperature 98.2 F Pulse Rate 104 H 105 H 106 H Pulse Rate [ From Monitor] Pulse Rate [ Right Radial] Respiratory 25 H 26 H 26 H Rate Blood Pressure 112/71 113/68 110/71 O2 Sat by Pulse 97 97 96 Oximetry 11/01/18 11/01/18 11/01/18 08:45 09:51 12:35 Temperature Pulse Rate 106 H 106 H 104 H Pulse Rate [ From Monitor] Pulse Rate [ Right Radial] Respiratory 26 H 24 23 Rate Blood Pressure 109/65 91/57 107/67 O2 Sat by Pulse 97 96 97 Oximetry CBC and BMP: 11/16/18 05:45 11/16/18 05:45 ABG, PT/INR, D-dimer: ABG POC ABG pH 7.405 (7.35-7.45) 11/01/18 05:36 POC ABG pCO2 34.9 (35-45) L 10/30/18 04:35 POC ABG pO2 65 (80-105) L 11/01/18 05:36 POC ABG HCO3 18.5 (22-26 mml/L) 11/01/18 05:36 POC ABG Total CO2 19 (23-27mmol/L) 11/01/18 05:36 POC ABG O2 Sat 93 11/01/18 05:36 Abnormal lab findings: Abnormal Labs 10/29/18 10/29/18 10/29/18 17:13 17:13 17:13 RBC 3.62 L Hgb Hct MCV 102 H MCH 34 H RDW 19.6 H [place] % (Auto) 7.8 H Seg Neutrophils % 71.2 H Seg Neuts % (Manual) Lymphocytes % (Manual) Lymphocytes # (Manual) POC ABG pH POC ABG pCO2 POC ABG pO2 Sodium 164 H* Potassium 6.2 H* Chloride 127.5 H Carbon Dioxide BUN 178 H Creatinine 4.2 H Glucose 131 H POC Glucose Calcium 10.7 H C-Reactive Protein Total Protein 9.5 H Albumin 2.6 L TSH 5.310 H Urine pH Urine WBC (Auto) 10/29/18 10/30/18 10/30/18 23:57 00:06 04:35 RBC Hgb Hct MCV MCH RDW [place] % (Auto) Seg Neutrophils % Seg Neuts % (Manual) Lymphocytes % (Manual) Lymphocytes # (Manual) POC ABG pH 7.488 H POC ABG pCO2 32.1 L 34.9 L POC ABG pO2 144 H Sodium Potassium Chloride Carbon Dioxide BUN Creatinine Glucose POC Glucose 131 H Calcium C-Reactive Protein Total Protein Albumin TSH Urine pH Urine WBC (Auto) 10/30/18 10/30/18 10/30/18 05:13 08:54 08:54 RBC 3.56 L Hgb 11.7 L Hct MCV 102 H MCH 33 H RDW 19.2 H [place] % (Auto) Seg Neutrophils % Seg Neuts % (Manual) Lymphocytes % (Manual) Lymphocytes # (Manual) POC ABG pH POC ABG pCO2 POC ABG pO2 Sodium Potassium Chloride Carbon Dioxide BUN Creatinine Glucose POC Glucose 316 H Calcium C-Reactive Protein 5.20 H Total Protein Albumin 2.2 L TSH Urine pH Urine WBC (Auto) 10/30/18 10/30/18 10/30/18 08:59 12:03 18:30 RBC Hgb Hct MCV MCH RDW [place] % (Auto) Seg Neutrophils % Seg Neuts % (Manual) Lymphocytes % (Manual) Lymphocytes # (Manual) POC ABG pH POC ABG pCO2 POC ABG pO2 Sodium 146 H D Potassium Chloride Carbon Dioxide BUN 86 H Creatinine 2.7 H Glucose 262 H POC Glucose 232 H 57 L Calcium C-Reactive Protein Total Protein Albumin TSH Urine pH Urine WBC (Auto) 10/30/18 10/30/18 10/30/18 18:39 19:07 19:42 RBC Hgb Hct MCV MCH RDW [place] % (Auto) Seg Neutrophils % Seg Neuts % (Manual) Lymphocytes % (Manual) Lymphocytes # (Manual) POC ABG pH POC ABG pCO2 POC ABG pO2 Sodium Potassium Chloride Carbon Dioxide BUN Creatinine Glucose POC Glucose < 40 L 51 L Calcium C-Reactive Protein Total Protein Albumin TSH Urine pH 8.0 H Urine WBC (Auto) > 182.0 H 10/30/18 10/30/18 10/30/18 19:51 23:13 23:20 RBC Hgb Hct MCV MCH RDW [place] % (Auto) Seg Neutrophils % Seg Neuts % (Manual) Lymphocytes % (Manual) Lymphocytes # (Manual) POC ABG pH POC ABG pCO2 POC ABG pO2 Sodium Potassium Chloride 108.5 H Carbon Dioxide 21 L BUN 96 H Creatinine 3.0 H Glucose 865 H* 150 H POC Glucose 152 H Calcium C-Reactive Protein Total Protein Albumin TSH Urine pH Urine WBC (Auto) 10/30/18 10/31/18 10/31/18 23:40 04:43 04:43 RBC Hgb Hct MCV 100 H MCH 33 H RDW 18.1 H [place] % (Auto) Seg Neutrophils % Seg Neuts % (Manual) Lymphocytes % (Manual) 4.0 L Lymphocytes # (Manual) 0.3 L POC ABG pH POC ABG pCO2 POC ABG pO2 Sodium Potassium Chloride Carbon Dioxide 19 L BUN 98 H Creatinine 3.2 H Glucose 184 H POC Glucose 145 H Calcium C-Reactive Protein Total Protein Albumin TSH Urine pH Urine WBC (Auto) 10/31/18 10/31/18 10/31/18 05:44 11:44 13:19 RBC Hgb Hct MCV MCH RDW [place] % (Auto) Seg Neutrophils % Seg Neuts % (Manual) Lymphocytes % (Manual) Lymphocytes # (Manual) POC ABG pH POC ABG pCO2 POC ABG pO2 64 L Sodium Potassium Chloride Carbon Dioxide BUN Creatinine Glucose POC Glucose 142 H 196 H Calcium C-Reactive Protein Total Protein Albumin TSH Urine pH Urine WBC (Auto) 10/31/18 11/01/18 11/01/18 17:36 04:07 04:07 RBC 3.40 L Hgb 11.2 L Hct 33.6 L MCV 99 H MCH 33 H RDW 17.5 H [place] % (Auto) Seg Neutrophils % Seg Neuts % (Manual) 80.0 H Lymphocytes % (Manual) 4.0 L Lymphocytes # (Manual) 0.3 L POC ABG pH POC ABG pCO2 POC ABG pO2 Sodium Potassium Chloride Carbon Dioxide 19 L BUN 108 H Creatinine 3.9 H Glucose 138 H POC Glucose 174 H Calcium 7.9 L C-Reactive Protein Total Protein Albumin TSH Urine pH Urine WBC (Auto) 11/01/18 11/01/18 11/01/18 05:24 05:36 13:09 RBC Hgb Hct MCV MCH RDW [place] % (Auto) Seg Neutrophils % Seg Neuts % (Manual) Lymphocytes % (Manual) Lymphocytes # (Manual) POC ABG pH POC ABG pCO2 POC ABG pO2 65 L Sodium Potassium Chloride Carbon Dioxide BUN Creatinine Glucose POC Glucose 153 H 249 H Calcium C-Reactive Protein Total Protein Albumin TSH Urine pH Urine WBC (Auto) Chest x-ray: image reviewed (No new CXR) Allied health notes reviewed: RT
--- NOTE | 2018-11-01 14:56 | Operative Report ---
Operative Report Operative Report: EXAM: 1. Exchange of a left common femoral vein triple lumen non-tunneled non-cuffed catheter for a left common femoral vein triple lumen nontunneled noncuffed hemodialysis catheter. DATE: 11/01/18 INDICATION: Right upper extremity AV access has thrombosed and patient needs alternative dialysis access. MEDICATIONS: Local anesthetic (1% lidocaine). DEVICES: Triple lumen nontunneled noncuffed hemodialysis catheter MED[employer] INSURANCE SPECIALIST: LINDA MEYERS MD CONTRAST: None PROCEDURE: The risks, benefits, and alternatives were discussed and informed consent was obtained. The left common femoral vein triple lumen catheter was prepped and draped in a sterile fashion. The triple lumen catheter was then removed over 0.035 inch wire. Over the 0.035 inch wire, dilatation was performed. The temporary hemodialysis catheter was advanced over the wire. 2-0 silk suture was used to secure the catheter. The central catheter lumen was charged with saline. The peripheral lumens were charged with heparinized saline at 1000 units per mL of heparin per mL of space. Biopatch and tegaderm were applied. Sterile dressing applied. FINDINGS: Successful exchange of a non-tunneled non-cuffed triple-lumen catheter. IMPRESSION: 1. Successful exchange of a left common femoral vein triple lumen non-tunneled non-cuffed catheter for a left common femoral vein triple lumen nontunneled noncuffed hemodialysis catheter.
--- NOTE | 2018-11-01 14:58 | Progress Note ---
Assessment and Plan 73-year-old male with end-stage renal disease and thrombosed right upper extremity AV graft. Patient has multiple medical issues that make long-term prognosis poor. He has an eschar of the left foot, right above-knee amputation, severe cachexia, and malignancy. He would not be able to tolerate an AV graft thrombectomy. He is also currently intubated. Plan to exchange the triple-lumen catheter in his groin for a dialysis catheter. Subjective Date of service: 11/01/18 Principal diagnosis: sepsis, acute resp, failure. Interval history: Intubated. Does not respond. Cachectic. Objective - Constitutional Vitals: Vital Signs - 12hr 11/01/18 11/01/18 11/01/18 03:00 03:15 03:30 Temperature Pulse Rate 96 H 97 H 97 H Pulse Rate [ From Monitor] Pulse Rate [ Right Radial] Respiratory 31 H 28 H 30 H Rate Blood Pressure 136/80 124/76 116/75 O2 Sat by Pulse 94 94 95 Oximetry 11/01/18 11/01/18 11/01/18 03:42 03:45 04:00 Temperature 98.8 F Pulse Rate 97 H 97 H Pulse Rate [ 98 H From Monitor] Pulse Rate [ 95 H Right Radial] Respiratory 29 H 27 H Rate Blood Pressure 120/73 104/66 O2 Sat by Pulse 95 95 Oximetry 11/01/18 11/01/18 11/01/18 04:15 04:30 04:45 Temperature Pulse Rate 98 H 97 H 98 H Pulse Rate [ From Monitor] Pulse Rate [ Right Radial] Respiratory 29 H 27 H 28 H Rate Blood Pressure 113/72 113/71 111/74 O2 Sat by Pulse 96 96 96 Oximetry 11/01/18 11/01/18 11/01/18 05:00 05:15 05:30 Temperature Pulse Rate 97 H 96 H 97 H Pulse Rate [ From Monitor] Pulse Rate [ Right Radial] Respiratory 25 H 25 H 25 H Rate Blood Pressure 123/77 107/66 117/69 O2 Sat by Pulse 96 96 96 Oximetry 11/01/18 11/01/18 11/01/18 05:45 06:00 06:15 Temperature Pulse Rate 98 H 99 H 101 H Pulse Rate [ From Monitor] Pulse Rate [ Right Radial] Respiratory 26 H 26 H 26 H Rate Blood Pressure 116/69 116/69 107/67 O2 Sat by Pulse 96 97 97 Oximetry 04/04/19 04/04/19 04/04/19 06:30 06:45 07:00 Temperature Pulse Rate 101 H 102 H 101 H Pulse Rate [ From Monitor] Pulse Rate [ Right Radial] Respiratory 27 H 26 H 25 H Rate Blood Pressure 103/68 107/70 107/70 O2 Sat by Pulse 97 97 97 Oximetry 11/01/18 11/01/18 11/01/18 07:15 07:30 07:45 Temperature Pulse Rate 105 H 103 H 103 H Pulse Rate [ From Monitor] Pulse Rate [ Right Radial] Respiratory 26 H 25 H 26 H Rate Blood Pressure 123/78 108/69 116/69 O2 Sat by Pulse 97 97 97 Oximetry 11/01/18 11/01/18 11/01/18 08:00 08:15 08:30 Temperature 98.2 F Pulse Rate 104 H 105 H 106 H Pulse Rate [ From Monitor] Pulse Rate [ Right Radial] Respiratory 25 H 26 H 26 H Rate Blood Pressure 112/71 113/68 110/71 O2 Sat by Pulse 97 97 96 Oximetry 11/01/18 11/01/18 11/01/18 08:45 09:51 12:35 Temperature Pulse Rate 106 H 106 H 104 H Pulse Rate [ From Monitor] Pulse Rate [ Right Radial] Respiratory 26 H 24 23 Rate Blood Pressure 109/65 91/57 107/67 O2 Sat by Pulse 97 96 97 Oximetry General appearance: Present: cachectic, other (intubated) - Respiratory Respiratory effort: other (intubated) Extremities: abnormal (eschars on the left foot, right AKA) - Psychiatric Psychiatric: other (intubated) - Labs CBC & Chem 7: 11/01/18 04:07 11/01/18 04:07 Labs: Abnormal lab results 10/31/18 11/01/18 11/01/18 Range/Units 17:36 04:07 04:07 RBC 3.40 L (3.65-5.03) M/mm3 Hgb 11.2 L (11.8-15.2) gm/dl Hct 33.6 L (35.5-45.6) % MCV 99 H (84-94) fl MCH 33 H (28-32) pg RDW 17.5 H (13.2-15.2) % Seg Neuts % (Manual) 80.0 H (40.0-70.0) % Lymphocytes % (Manual) 4.0 L (13.4-35.0) % Lymphocytes # (Manual) 0.3 L (1.2-5.4) K/mm3 POC ABG pO2 (80-105) Carbon Dioxide 19 L (22-30) mmol/L BUN 108 H (9-20) mg/dL Creatinine 3.9 H (0.8-1.5) mg/dL Glucose 138 H (75-100) mg/dL POC Glucose 174 H (70-105) Calcium 7.9 L (8.4-10.2) mg/dL 11/01/18 11/01/18 11/01/18 Range/Units 05:24 05:36 13:09 RBC (3.65-5.03) M/mm3 Hgb (11.8-15.2) gm/dl Hct (35.5-45.6) % MCV (84-94) fl MCH (28-32) pg RDW (13.2-15.2) % Seg Neuts % (Manual) (40.0-70.0) % Lymphocytes % (Manual) (13.4-35.0) % Lymphocytes # (Manual) (1.2-5.4) K/mm3 POC ABG pO2 65 L (80-105) Carbon Dioxide (22-30) mmol/L BUN (9-20) mg/dL Creatinine (0.8-1.5) mg/dL Glucose (75-100) mg/dL POC Glucose 153 H 249 H (70-105) Calcium (8.4-10.2) mg/dL Medications & Allergies - Medications Allergies/Adverse Reactions: Allergies No Known Allergies Allergy (Verified 01/18/18 20:10) Home Medications: Home Medications Medication Instructions Recorded Confirmed Last Taken Type Acetaminophen [Acetaminophen TAB] 650 mg PO Q4H PRN 03/12/18 10/31/18 Unknown History Calcium Acetate [Phoslo] 667 mg PO TID 03/12/18 10/31/18 05/13/18 17:00 History Carvedilol [Coreg] 6.25 mg PO BID 03/12/18 10/31/18 05/13/18 09:00 History Ergocalciferol 50,000 unit PO QWEEK 03/12/18 10/31/1818 09:00 History Apixaban [Eliquis] 2.5 mg PO BID tablet 08/21/18 10/31/18 Unknown Rx Megestrol [Megace] 400 mg PO QDAY 10/31/18 10/31/18 Unknown History Mirtazapine [Remeron] 15 mg PO QHS 10/31/18 10/31/18 Unknown History Elaine-José Rx Tablet 1 tab PO QDAY 10/31/18 10/31/18 Unknown History Sodium Bicarbonate 650 mg PO BID 10/31/18 10/31/18 Unknown History traMADol [Ultram 50 MG tab] 25 mg PO Q12H PRN 10/31/18 10/31/18 Unknown History Active Medications: Generic Name Dose Route Start Last Admin Trade Name Freq PRN Reason Stop Dose Admin Lipase/Protease/Amylase 1 each 10/30/18 11:37 Pancreyobani Palomo 10,500 Unit FEEDTUBE PRN PRN For Clogged Feeding Tube Lipase/Protease/Amylase 1 each 11/01/18 10:04 Raf Palomo 10,500 Unit FEEDTUBE PRN PRN For Clogged Feeding Tube Famotidine 20 mg 11/01/18 10:00 11/01/18 10:15 Pepcid PO 20 mg DAILY KIRSTEN Administration Heparin Sodium (Porcine) 5,000 unit 10/29/18 22:00 11/01/18 13:15 Heparin SUB-Q 5,000 unit Q8HR KIRSTEN Administration Ceftriaxone Sodium 1 gm in 50 mls @ 100 mls/hr 10/30/18 10:00 11/01/18 11:00 Rocephin/Ns 1 Gm/50 Ml IV 11/05/18 10:29 100 mls/hr Q24HR KIRSTEN Administration Protocol Norepinephrine 4 mg in 250 mls @ 7.5 mls/hr 10/30/18 01:00 10/31/18 18:45 Levophed Drip 4 Mg/Ns 250 Ml IV 2 mcg/min TITR KIRSTEN 7.5 mls/hr Titration Protocol 2 MCG/MIN Sodium Chloride 100 mls @ 999 mls/hr 11/01/18 09:22 Nacl 0.9% IV ALEJO PRN Hypotension Insulin Human Lispro 0 unit 10/30/18 10:00 11/01/18 13:16 Humalog SUB-Q 4 unit Q6HR KIRSTEN Administration Protocol Simple Syrup 15 ml 10/30/18 11:37 Simple Syrup FEEDTUBE PRN PRN Hypoglycemia Simple Syrup 30 ml 10/30/18 11:37 10/30/18 18:43 Simple Syrup FEEDTUBE 30 ml PRN PRN Administration Hypoglycemia Simple Syrup 15 ml 11/01/18 10:04 Simple Syrup FEEDTUBE PRN PRN Hypoglycemia Simple Syrup 30 ml 11/01/18 10:04 Simple Syrup FEEDTUBE PRN PRN Hypoglycemia Sodium Bicarbonate 325 mg 10/30/18 11:37 Sodium Bicarbonate FEEDTUBE PRN PRN For Clogged Feeding Tube Sodium Bicarbonate 325 mg 11/01/18 10:04 Sodium Bicarbonate FEEDTUBE PRN PRN For Clogged Feeding Tube
--- NOTE | 2018-11-01 22:52 | Progress Note ---
Assessment and Plan - Patient Problems (1) Altered mental status Current Visit: Yes Status: Acute Qualifiers: Altered mental status type: unspecified Qualified Code(s): R41.82 - Altered mental status, unspecified Plan to address problem: most likely due to sinus infection. (2) Hyperkalemia Current Visit: Yes Status: Acute Plan to address problem: Treated, and continue to correct with HD. corrected. (3) Hypernatremia Current Visit: Yes Status: Acute Plan to address problem: correct with HD. As above when feasible with the Renal service. (4) Uremia Current Visit: Yes Status: Acute Plan to address problem: treat underlying cause. (5) Acute encephalopathy Current Visit: Yes Status: Chronic Plan to address problem: supportive care. (6) ESRD needing dialysis Current Visit: Yes Status: Chronic Plan to address problem: Continue on HD. as above once feasible. (7) Sepsis Current Visit: Yes Status: Acute Plan to address problem: treat the etiology.Most likely due to sinus infection. Subjective Date of service: 11/01/18 Principal diagnosis: sepsis, acute resp, failure. Interval history: Patient seen/examined,in the ICU. I have spoken to the daughter, and his sister today, regarding plan of care, and prognosis. I have rec less agressive path, including hospice. They will think about it ,and let me know. Mean while, will continue current management. His prognosis is quite poor at this time. Patient seen/examined, resting in bed, labs reviewed.Still on the vent.If unable to be weaned off the vent, on timely /expected time, will push for [facility] eval[facility]placement at [facility] proposal development [facility] to start preparing fot this possibility. Patient seen/examined, resting in bed, still not weanable yet.He had HD today. Objective - Constitutional Vitals: Vital Signs - 12hr 11/01/18 11/01/18 11/01/18 11:00 11:15 11:30 Temperature Pulse Rate 104 H 104 H 106 H Respiratory 23 23 24 Rate Blood Pressure 97/60 97/60 89/65 O2 Sat by Pulse 97 97 97 Oximetry O2 Sat by Pulse Oximetry [ Anterior Bilateral] 11/01/18 11/01/18 11/01/18 11:45 12:00 12:15 Temperature Pulse Rate 105 H 103 H 103 H Respiratory 24 25 H 20 Rate Blood Pressure 107/63 93/63 94/60 O2 Sat by Pulse 96 97 97 Oximetry O2 Sat by Pulse Oximetry [ Anterior Bilateral] 11/01/18 11/01/18 11/01/18 12:30 12:35 12:45 Temperature Pulse Rate 103 H 104 H 105 H Respiratory 22 23 26 H Rate Blood Pressure 107/67 107/67 95/61 O2 Sat by Pulse 100 97 95 Oximetry O2 Sat by Pulse Oximetry [ Anterior Bilateral] 11/01/18 11/01/18 11/01/18 13:00 13:15 13:30 Temperature Pulse Rate 105 H 105 H 104 H Respiratory 26 H 22 22 Rate Blood Pressure 92/61 88/64 88/64 O2 Sat by Pulse 95 96 96 Oximetry O2 Sat by Pulse Oximetry [ Anterior Bilateral] 11/01/18 11/01/18 11/01/18 13:45 14:00 14:15 Temperature Pulse Rate 103 H 103 H 105 H Respiratory 22 24 23 Rate Blood Pressure 98/62 94/59 95/59 O2 Sat by Pulse 96 95 96 Oximetry O2 Sat by Pulse Oximetry [ Anterior Bilateral] 11/01/18 11/01/18 11/01/18 14:30 14:45 15:00 Temperature Pulse Rate 104 H 103 H 104 H Respiratory 29 H 27 H 31 H Rate Blood Pressure 101/63 90/57 93/57 O2 Sat by Pulse 95 95 93 Oximetry O2 Sat by Pulse Oximetry [ Anterior Bilateral] 11/01/18 11/01/18 11/01/18 15:15 15:30 15:45 Temperature 98.3 F Pulse Rate 103 H 103 H 104 H Respiratory 30 H 24 28 H Rate Blood Pressure 100/61 100/65 103/61 O2 Sat by Pulse 97 97 97 Oximetry O2 Sat by Pulse 97 Oximetry [ Anterior Bilateral] 11/01/18 11/01/18 11/01/18 16:00 16:15 16:30 Temperature 98.3 F Pulse Rate 106 H 107 H 109 H Respiratory 27 H 25 H 27 H Rate Blood Pressure 83/57 79/51 106/69 O2 Sat by Pulse 97 94 95 Oximetry O2 Sat by Pulse Oximetry [ Anterior Bilateral] 11/01/18 11/01/18 11/01/18 16:45 17:00 17:15 Temperature Pulse Rate 110 H 109 H 112 H Respiratory 24 22 28 H Rate Blood Pressure 111/73 101/68 104/68 O2 Sat by Pulse 96 96 94 Oximetry O2 Sat by Pulse Oximetry [ Anterior Bilateral] 11/01/18 11/01/18 11/01/18 17:19 17:30 17:45 Temperature Pulse Rate 109 H 110 H 112 H Respiratory 32 H 31 H Rate Blood Pressure 104/68 103/69 102/67 O2 Sat by Pulse 100 94 95 Oximetry O2 Sat by Pulse Oximetry [ Anterior Bilateral] 11/01/18 11/01/18 11/01/18 17:46 18:00 18:15 Temperature Pulse Rate 112 H 112 H 113 H Respiratory 31 H 31 H Rate Blood Pressure 102/67 103/66 110/68 O2 Sat by Pulse 95 95 Oximetry O2 Sat by Pulse Oximetry [ Anterior Bilateral] 11/01/18 11/01/18 11/01/18 18:30 18:45 19:05 Temperature 98.3 F Pulse Rate 113 H 114 H 113 H Respiratory 30 H 32 H Rate Blood Pressure 113/67 101/66 123/79 O2 Sat by Pulse 94 Oximetry O2 Sat by Pulse 95 Oximetry [ Anterior Bilateral] 11/01/18 11/01/18 19:28 20:00 Temperature 98.2 F Pulse Rate 113 H Respiratory Rate Blood Pressure 108/70 O2 Sat by Pulse 94 Oximetry O2 Sat by Pulse Oximetry [ Anterior Bilateral] General appearance: Present: mild distress, cachectic - EENT Eyes: PERRL, EOM intact ENT: hearing intact, clear oral mucosa Ears: bilateral: normal - Neck Neck: supple, normal ROM - Respiratory Respiratory effort: normal Respiratory: bilateral: other (on the vent.) - Breasts Breasts: deferred - Cardiovascular Rhythm: regular Heart Sounds: Present: S1 & S2. Absent: gallop, rub Extremities: pulses intact, No edema, normal color, Full ROM - Gastrointestinal General gastrointestinal: Present: soft, non-tender, non-distended, normal bowel sounds - Genitourinary Male genitourinary: deferred - Integumentary Integumentary: clear, warm, dry - Labs CBC & Chem 7: 11/01/18 04:07 11/01/18 04:07 Labs: Abnormal lab results 11/01/18 11/01/18 11/01/18 Range/Units 04:07 04:07 05:24 RBC 3.40 L (3.65-5.03) M/mm3 Hgb 11.2 L (11.8-15.2) gm/dl Hct 33.6 L (35.5-45.6) % MCV 99 H (84-94) fl MCH 33 H (28-32) pg RDW 17.5 H (13.2-15.2) % Seg Neuts % (Manual) 80.0 H (40.0-70.0) % Lymphocytes % (Manual) 4.0 L (13.4-35.0) % Lymphocytes # (Manual) 0.3 L (1.2-5.4) K/mm3 POC ABG pO2 (80-105) Carbon Dioxide 19 L (22-30) mmol/L BUN 108 H (9-20) mg/dL Creatinine 3.9 H (0.8-1.5) mg/dL Glucose 138 H (75-100) mg/dL POC Glucose 153 H (70-105) Calcium 7.9 L (8.4-10.2) mg/dL 11/01/18 11/01/18 11/01/18 Range/Units 05:36 13:09 18:11 RBC (3.65-5.03) M/mm3 Hgb (11.8-15.2) gm/dl Hct (35.5-45.6) % MCV (84-94) fl MCH (28-32) pg RDW (13.2-15.2) % Seg Neuts % (Manual) (40.0-70.0) % Lymphocytes % (Manual) (13.4-35.0) % Lymphocytes # (Manual) (1.2-5.4) K/mm3 POC ABG pO2 65 L (80-105) Carbon Dioxide (22-30) mmol/L BUN (9-20) mg/dL Creatinine (0.8-1.5) mg/dL Glucose (75-100) mg/dL POC Glucose 249 H 175 H (70-105) Calcium (8.4-10.2) mg/dL Medications & Allergies - Medications Allergies/Adverse Reactions: Allergies No Known Allergies Allergy (Verified 01/18/18 20:10) Home Medications: Home Medications Medication Instructions Recorded Confirmed Last Taken Type Acetaminophen [Acetaminophen TAB] 650 mg PO Q4H PRN 03/12/18 10/31/18 Unknown History Calcium Acetate [Phoslo] 667 mg PO TID 03/12/18 10/31/18 05/13/18 17:00 History Carvedilol [Coreg] 6.25 mg PO BID 03/12/18 10/31/18 05/13/18 09:00 History Ergocalciferol 50,000 unit PO QWEEK 03/12/18 10/31/18 05/11/18 09:00 History Apixaban [Eliquis] 2.5 mg PO BID tablet 08/21/18 10/31/18 Unknown Rx Megestrol [Megace] 400 mg PO QDAY 10/31/18 10/31/18 Unknown History Mirtazapine [Remeron] 15 mg PO QHS 10/31/18 10/31/18 Unknown History Elaine-José Rx Tablet 1 tab PO QDAY 10/31/18 10/31/18 Unknown History Sodium Bicarbonate 650 mg PO BID 10/31/18 10/31/18 Unknown History traMADol [Ultram 50 MG tab] 25 mg PO Q12H PRN 10/31/18 10/31/18 Unknown History Active Medications: Generic Name Dose Route Start Last Admin Trade Name Freq PRN Reason Stop Dose Admin Lipase/Protease/Amylase 1 each 10/30/18 11:37 Raf Palomo 10,500 Unit FEEDTUBE PRN PRN For Clogged Feeding Tube Lipase/Protease/Amylase 1 each 11/01/18 10:04 Raf aPlomo 10,500 Unit FEEDTUBE PRN PRN For Clogged Feeding Tube Famotidine 20 mg 11/01/18 10:00 11/01/18 10:15 Pepcid PO 20 mg DAILY KIRSTEN Administration Heparin Sodium (Porcine) 5,000 unit 10/29/18 22:00 11/01/18 22:31 Heparin SUB-Q 5,000 unit Q8HR KIRSTEN Administration Ceftriaxone Sodium 1 gm in 50 mls @ 100 mls/hr 10/30/18 10:00 11/01/18 11:00 Rocephin/Ns 1 Gm/50 Ml IV 11/05/18 10:29 100 mls/hr Q24HR KIRSTEN Administration Protocol Norepinephrine 4 mg in 250 mls @ 7.5 mls/hr 10/30/18 01:00 11/01/18 22:26 Levophed Drip 4 Mg/Ns 250 Ml IV 4 mcg/min TITR KIRSTEN 15 mls/hr Titration Protocol 2 MCG/MIN Sodium Chloride 100 mls @ 999 mls/hr 11/01/18 09:22 Nacl 0.9% IV ALEJO PRN Hypotension Insulin Human Lispro 0 unit 10/30/18 10:00 11/01/18 18:34 Humalog SUB-Q 3 unit Q6HR KIRSTEN Administration Protocol Simple Syrup 15 ml 10/30/18 11:37 Simple Syrup FEEDTUBE PRN PRN Hypoglycemia Simple Syrup 30 ml 10/30/18 11:37 10/30/18 18:43 Simple Syrup FEEDTUBE 30 ml PRN PRN Administration Hypoglycemia Simple Syrup 15 ml 11/01/18 10:04 Simple Syrup FEEDTUBE PRN PRN Hypoglycemia Simple Syrup 30 ml 11/01/18 10:04 Simple Syrup FEEDTUBE PRN PRN Hypoglycemia Sodium Bicarbonate 325 mg 10/30/18 11:37 Sodium Bicarbonate FEEDTUBE PRN PRN For Clogged Feeding Tube Sodium Bicarbonate 325 mg 11/01/18 10:04 Sodium Bicarbonate FEEDTUBE PRN PRN For Clogged Feeding Tube
[2018-11-01] MEDS: LEVOPHED DRIP 4 MG/NS 250 ML 4 MG/250 ML BAG IV SCH (23:00)
[2018-11-02] MEDS: HumaLOG SUB-Q SCH ×4 (00:28→17:52)
[2018-11-02] MEDS: HEPARIN SUB-Q SCH ×3 (05:51→21:18)
[2018-11-02] MEDS: LEVOPHED DRIP 4 MG/NS 250 ML 4 MG/250 ML BAG IV SCH ×3 (06:03→20:30)
[2018-11-02 07:30] LABS: Hematocrit 30.1 % (35.5-45.6); Hemoglobin 10.1 gm/dl (11.8-15.2); Mean Corpuscular HGB Conc 34 % (32-34); Mean Corpuscular Volume 98 fl (84-94); Platelet Count 176 K/mm3 (140-440); Red Blood Count 3.08 M/mm3 (3.65-5.03); Red Cell Distribution Width 16.7 % (13.2-15.2)
--- NOTE | 2018-11-02 07:41 | Progress Note ---
Assessment and Plan 1. ESRD: Patient was last dialyzed yesterday. 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 2. FEN: Hyperkalemia, improved. Hypernatremia, improved. 3. Respiratory failure: On vent. 4. Shock: On Levophed. 5. Urosepsis. Subjective Date of service: 11/02/18 Principal diagnosis: sepsis, acute resp, failure. Interval history: Patient was seen and examined at the bedside. Objective - Vital Signs Vital signs: Vital Signs - 12hr 11/01/18 11/01/18 11/01/18 19:45 20:00 20:15 Temperature 98.2 F Pulse Rate 114 H 114 H 116 H Respiratory 32 H 31 H 31 H Rate Blood Pressure 92/57 98/63 95/57 O2 Sat by Pulse 93 91 93 Oximetry 11/01/18 11/01/18 11/01/18 20:31 20:45 21:00 Temperature Pulse Rate 121 H 120 H 122 H Respiratory 34 H 30 H 33 H Rate Blood Pressure 124/64 99/59 100/63 O2 Sat by Pulse 95 92 94 Oximetry 11/01/18 11/01/18 11/01/18 21:15 21:30 21:45 Temperature Pulse Rate 122 H 126 H 124 H Respiratory 35 H 35 H 36 H Rate Blood Pressure 100/60 100/60 94/60 O2 Sat by Pulse 93 95 92 Oximetry 11/01/18 11/01/18 11/01/18 22:00 22:15 22:30 Temperature Pulse Rate 126 H 125 H 128 H Respiratory 35 H 35 H 38 H Rate Blood Pressure 81/63 78/57 118/68 O2 Sat by Pulse 92 92 88 Oximetry 11/01/18 11/01/18 11/01/18 22:45 23:00 23:15 Temperature Pulse Rate 125 H 133 H 123 H Respiratory 38 H 40 H 34 H Rate Blood Pressure 97/58 143/95 143/95 O2 Sat by Pulse 90 95 92 Oximetry 11/01/18 11/01/18 11/01/18 23:30 23:40 23:45 Temperature Pulse Rate 126 H 125 H 127 H Respiratory 14 34 H 37 H Rate Blood Pressure 86/56 86/56 89/59 O2 Sat by Pulse 93 100 95 Oximetry 11/01/18 11/01/18 11/02/18 23:51 23:57 00:00 Temperature 98.8 F Pulse Rate 127 H 126 H Respiratory 38 H 34 H Rate Blood Pressure 89/59 81/52 O2 Sat by Pulse 92 90 Oximetry 11/02/18 11/02/18 11/02/18 00:03 00:15 00:30 Temperature Pulse Rate 125 H 126 H 125 H Respiratory 34 H 35 H 35 H Rate Blood Pressure 81/52 94/59 98/62 O2 Sat by Pulse 90 91 94 Oximetry 11/02/18 11/02/18 11/02/18 00:45 01:00 01:15 Temperature Pulse Rate 123 H 124 H 125 H Respiratory 31 H 31 H 29 H Rate Blood Pressure 83/54 93/57 102/65 O2 Sat by Pulse 93 93 95 Oximetry 11/02/18 11/02/18 11/02/18 01:30 01:45 02:00 Temperature Pulse Rate 124 H 122 H 121 H Respiratory 29 H 24 32 H Rate Blood Pressure 106/66 87/55 85/56 O2 Sat by Pulse 96 94 95 Oximetry 11/02/18 11/02/18 11/02/18 02:15 02:30 02:45 Temperature Pulse Rate 120 H 117 H 124 H Respiratory 29 H 26 H 33 H Rate Blood Pressure 85/57 70/40 122/71 O2 Sat by Pulse 95 94 96 Oximetry 11/02/18 11/02/18 11/02/18 03:00 03:15 03:20 Temperature Pulse Rate 117 H 117 H 117 H Respiratory 25 H 26 H 8 L Rate Blood Pressure 68/43 85/51 88/51 O2 Sat by Pulse 94 95 95 Oximetry 11/02/18 11/02/18 11/02/18 03:30 03:45 04:00 Temperature 101.6 F H Pulse Rate 115 H 114 H Respiratory 26 H 25 H 30 H Rate Blood Pressure 97/56 91/57 91/57 O2 Sat by Pulse 95 96 96 Oximetry 11/02/18 11/02/18 11/02/18 04:15 04:30 04:45 Temperature Pulse Rate 120 H 117 H 124 H Respiratory 18 36 H 34 H Rate Blood Pressure 98/68 89/53 118/67 O2 Sat by Pulse 97 95 97 Oximetry 11/02/18 11/02/18 11/02/18 05:00 05:15 05:30 Temperature Pulse Rate 118 H 119 H 121 H Respiratory 33 H 37 H 35 H Rate Blood Pressure 91/57 91/55 108/64 O2 Sat by Pulse 95 95 96 Oximetry 11/02/18 11/02/18 11/02/18 05:45 06:00 06:15 Temperature Pulse Rate 121 H 120 H 125 H Respiratory 33 H 33 H 37 H Rate Blood Pressure 70/45 91/58 110/65 O2 Sat by Pulse 96 96 97 Oximetry 11/02/18 07:31 Temperature Pulse Rate 127 H Respiratory Rate Blood Pressure 118/66 O2 Sat by Pulse 98 Oximetry - General Appearance General appearance: well-developed, appears stated age, cachectic, intubated, other (on vent) EENT: ATNC Neck: supple Respiratory: Present: Clear to Ascultation Cardiology: regular, S1S2, no murmurs Gastrointestinal: normoactive bowel sounds, no tenderness, other (Suprapubic catheter noted) Integumentary: chronic venous stasis (left leg) Neurologic: obtunded Musculoskeletal: other (right AKA) - Lab 11/03/18 05:10 11/02/18 07:54 Most recent lab results Calcium 7.9 mg/dL (8.4-10.2) L 11/01/18 04:07 Phosphorus 3.70 mg/dL (2.5-4.5) 10/31/18 04:43 Medications & Allergies - Medications Allergies/Adverse Reactions: Allergies No Known Allergies Allergy (Verified 01/18/18 20:10) Home Medications: Home Medications Medication Instructions Recorded Confirmed Last Taken Type Acetaminophen [Acetaminophen TAB] 650 mg PO Q4H PRN 03/12/18 10/31/18 Unknown History Calcium Acetate [Phoslo] 667 mg PO TID 03/12/18 10/31/18 05/13/18 17:00 History Carvedilol [Coreg] 6.25 mg PO BID 03/12/18 10/31/18 05/13/18 09:00 History Ergocalciferol 50,000 unit PO QWEEK 03/12/18 10/31/18 05/11/18 09:00 History Apixaban [Eliquis] 2.5 mg PO BID tablet 08/21/18 10/31/18 Unknown Rx Megestrol [Megace] 400 mg PO QDAY 10/31/18 10/31/18 Unknown History Mirtazapine [Remeron] 15 mg PO QHS 10/31/18 10/31/18 Unknown History Elaine-José Rx Tablet 1 tab PO QDAY 10/31/18 10/31/18 Unknown History Sodium Bicarbonate 650 mg PO BID 10/31/18 10/31/18 Unknown History traMADol [Ultram 50 MG tab] 25 mg PO Q12H PRN 10/31/18 10/31/18 Unknown History Active Medications: Generic Name Dose Route Start Last Admin Trade Name Freq PRN Reason Stop Dose Admin Lipase/Protease/Amylase 1 each 10/30/18 11:37 Raf Palomo 10,500 Unit FEEDTUBE PRN PRN For Clogged Feeding Tube Lipase/Protease/Amylase 1 each 11/01/18 10:04 Raf Palomo 10,500 Unit FEEDTUBE PRN PRN For Clogged Feeding Tube Famotidine 20 mg 11/01/18 10:00 11/01/18 10:15 Pepcid PO 20 mg DAILY KIRSTEN Administration Heparin Sodium (Porcine) 5,000 unit 10/29/18 22:00 11/02/18 05:51 Heparin SUB-Q 5,000 unit Q8HR KIRSTEN Administration Ceftriaxone Sodium 1 gm in 50 mls @ 100 mls/hr 10/30/18 10:00 11/01/18 11:00 Rocephin/Ns 1 Gm/50 Ml IV 11/05/18 10:29 100 mls/hr Q24HR KIRSTEN Administration Protocol Norepinephrine 4 mg in 250 mls @ 7.5 mls/hr 10/30/18 01:00 11/02/18 06:19 Levophed Drip 4 Mg/Ns 250 Ml IV 14 mcg/min TITR KIRSTEN 52.5 mls/hr Titration Protocol 2 MCG/MIN Sodium Chloride 100 mls @ 999 mls/hr 11/01/18 09:22 Nacl 0.9% IV ALEJO PRN Hypotension Insulin Human Lispro 0 unit 10/30/18 10:00 11/02/18 06:21 Humalog SUB-Q Not Given Q6HR KIRSTEN Protocol Simple Syrup 15 ml 10/30/18 11:37 Simple Syrup FEEDTUBE PRN PRN Hypoglycemia Simple Syrup 30 ml 10/30/18 11:37 10/30/18 18:43 Simple Syrup FEEDTUBE 30 ml PRN PRN Administration Hypoglycemia Simple Syrup 15 ml 11/01/18 10:04 Simple Syrup FEEDTUBE PRN PRN Hypoglycemia Simple Syrup 30 ml 11/01/18 10:04 Simple Syrup FEEDTUBE PRN PRN Hypoglycemia Sodium Bicarbonate 325 mg 10/30/18 11:37 Sodium Bicarbonate FEEDTUBE PRN PRN For Clogged Feeding Tube Sodium Bicarbonate 325 mg 11/01/18 10:04 Sodium Bicarbonate FEEDTUBE PRN PRN For Clogged Feeding Tube
[2018-11-02 08:28] LABS: Basophils % (Manual) 0 % (0.0-1.8); Eosinophils % (Manual) 0 % (0.0-4.3); Total Cells Counted 100
[2018-11-02 08:29] LABS: Anisocytosis 1+; Platelet Estimate Consistent w Auto; Poikilocytosis Few; Target Cells Rare
[2018-11-02 08:53] LABS: Calcium 7.4 mg/dL (8.4-10.2)
--- NOTE | 2018-11-02 09:42 | XRay Report ---
Portable chest: Respiratory failure. There is a patchy infiltrate at the right lung base. The lungs otherwise appear generally hyperinflated, and clear. The heart is normal in size and there is no vascular congestion. Endotracheal and nasogastric tubes are in good positions. Compared to prior exam of October 29 right lower lobe infiltrate is new as is the nasogastric tube. Impression: Pulmonary hyperinflation; interval development of right lower lobe infiltrate.
[2018-11-02] MEDS: ROCEPHIN/NS 1 GM/50 ML 1 GM/50 ML BAG IV SCH (11:04)
[2018-11-02] MEDS: PEPCID PO SCH (11:04)
--- NOTE | 2018-11-02 12:35 | Progress Note ---
Assessment and Plan -s/p PEA arrest -Severe sepsis with septic shock -Fevers -Acute hypoxic respiratory failure on MVS -Acute encephalopathy( toxic, metabolic) -Severe protein calorie malnutrition -Hyperkalemia -ESRD on HD -Hyperosmolar hyperglycemic state -Hypotension, multifactorial, ?sepsis, dehydration -Hypernatremia -PVD s/p right BKA -Prostate cancer s/p suprapubic catheter -Continue with MVS -Lung protective strategies -VAP bundle addressed. -With new fevers, re-culture -Supplemental oxygen, wean for O2 sats>90% -Daily SBTs as tolerated -VTE prophylaxis( heparin) -Stress ulcer prophylaxis( Famotidine) -High dose sliding scale insulin with accuchecks -Tube feedings with aspiration precautions -Glycemic control, target blood glucose of 140-180mg/dL -Free water flushes -Wound care be wound care team -Supportive HD -Wean vasopressor support for MAP>65 -Volume resuscitation -ABG and CXR in am -Serial BMP to monitor sodium levels Sputum positive for MRSA, start Vancomycin, ID consult, Pharmacy fro pharmacokinteics/dosing CONDITION: CRITICAL PROGNOSIS: GUARDED CODE STATUS: FULL Discussed with ICU care team during IDT rounds Discussed with CM/SW to identify the POA/NOK for us to have discussions on goals of care and code status. One daughter has signed DNAR and we are waiting on lamont second daughter to come and co-sign the DNAR orders I have spent 35 minutes in the direct care of this critically ill patient, excluding procedure time. Critical care time was spent on this patient and during his initial evaluation, multiple re-evaluations, ordering and interpretation of labs and imaging, medications, discussion with the ICU care team. There is a high probability of clinically significant, sudden, or life- threatening deterioration that has required multiple evaluations and direct attention, intervention, and management. Subjective Date of service: 11/02/18 Principal diagnosis: sepsis, acute resp, failure. Interval history: Patient is seen today for: Acute hypoxemic respiratory failure on MVS; Severe sepsis with septic shock; acute encephaloapthy; Seen and examined at bedside; 24hour events reviewed; nursing and respiratory care staff consulted; fevers of 102.9, remains on norepinephrine fro hemodynamic support remains unresponsive, on mechanical ventilatory support, no dys-synchrony Vent AC- 18/350/6/25% ABG Respiratory failure Objective - Exam Narrative Exam: GENERAL: The patient is cachectic and ill-appearing, temporal wasting with lanugo hair. ETT to MVS, no patient-ventilator dys-synchrony HEENT: Normocephalic. Atraumatic. Patient has moist mucous membranes. EYES: Extraocular motions are intact. Pupils are equal and reactive to light bilaterally. NECK: Supple. Trachea is midline. CHEST/LUNGS: Slightly coarse breath sounds. No tachypnea or accessory muscle use. There is no respiratory distress noted. HEART/CARDIOVASCULAR: Regular. There is no tachycardia. There is no obvious murmur. ABDOMEN: Abdomen is soft, nontender. Patient has normal bowel sounds. There is no abdominal distention. Supra pubic catheter. Right groin CVC SKIN: Skin is warm and dry. NEURO: Unresponsive MUSCULOSKELETAL: Right above-knee amputation. RUExt AV-graft Vital Signs - 12hr 11/02/18 11/02/18 11/02/18 00:30 00:45 01:00 Temperature Pulse Rate 125 H 123 H 124 H Respiratory 35 H 31 H 31 H Rate Blood Pressure 98/62 83/54 93/57 O2 Sat by Pulse 94 93 93 Oximetry 11/02/18 11/02/18 11/02/18 01:15 01:30 01:45 Temperature Pulse Rate 125 H 124 H 122 H Respiratory 29 H 29 H 24 Rate Blood Pressure 102/65 106/66 87/55 O2 Sat by Pulse 95 96 94 Oximetry 11/02/18 11/02/18 11/02/18 02:00 02:15 02:30 Temperature Pulse Rate 121 H 120 H 117 H Respiratory 32 H 29 H 26 H Rate Blood Pressure 85/56 85/57 70/40 O2 Sat by Pulse 95 95 94 Oximetry 11/02/18 11/02/18 11/02/18 02:45 03:00 03:15 Temperature Pulse Rate 124 H 117 H 117 H Respiratory 33 H 25 H 26 H Rate Blood Pressure 122/71 68/43 85/51 O2 Sat by Pulse 96 94 95 Oximetry 11/02/18 11/02/18 11/02/18 03:20 03:30 03:45 Temperature Pulse Rate 117 H 115 H 114 H Respiratory 8 L 26 H 25 H Rate Blood Pressure 88/51 97/56 91/57 O2 Sat by Pulse 95 95 96 Oximetry 11/02/18 11/02/18 11/02/18 04:00 04:15 04:30 Temperature 101.6 F H Pulse Rate 120 H 117 H Respiratory 30 H 18 36 H Rate Blood Pressure 91/57 98/68 89/53 O2 Sat by Pulse 96 97 95 Oximetry 11/02/18 11/02/18 11/02/18 04:45 05:00 05:15 Temperature Pulse Rate 124 H 118 H 119 H Respiratory 34 H 33 H 37 H Rate Blood Pressure 118/67 91/57 91/55 O2 Sat by Pulse 97 95 95 Oximetry 11/02/18 11/02/18 11/02/18 05:30 05:45 06:00 Temperature Pulse Rate 121 H 121 H 120 H Respiratory 35 H 33 H 33 H Rate Blood Pressure 108/64 70/45 91/58 O2 Sat by Pulse 96 96 96 Oximetry 11/02/18 11/02/18 11/02/18 06:15 06:30 06:45 Temperature Pulse Rate 125 H 125 H 125 H Respiratory 37 H 31 H 35 H Rate Blood Pressure 110/65 101/65 99/66 O2 Sat by Pulse 97 97 97 Oximetry 11/02/18 11/02/18 11/02/18 07:00 07:15 07:30 Temperature Pulse Rate 130 H 124 H 126 H Respiratory 38 H 36 H 38 H Rate Blood Pressure 140/73 102/63 118/66 O2 Sat by Pulse 98 98 98 Oximetry 11/02/18 11/02/18 11/02/18 07:31 07:45 08:00 Temperature 102.9 F H Pulse Rate 127 H 126 H 124 H Respiratory 27 H 37 H Rate Blood Pressure 118/66 116/70 104/68 O2 Sat by Pulse 98 99 99 Oximetry 11/02/18 11/02/18 11/02/18 09:32 10:26 12:21 Temperature Pulse Rate 122 H 123 H 120 H Respiratory 30 H 17 Rate Blood Pressure 88/57 91/57 90/60 O2 Sat by Pulse 98 98 97 Oximetry CBC and BMP: 11/02/18 07:17 11/02/18 07:54 ABG, PT/INR, D-dimer: ABG POC ABG pH 7.514 (7.35-7.45) H 11/02/18 09:32 POC ABG pCO2 34.9 (35-45) L 10/30/18 04:35 POC ABG pO2 70 (80-105) L 11/02/18 09:32 POC ABG HCO3 23.4 (22-26 mml/L) 11/02/18 09:32 POC ABG Total CO2 24 (23-27mmol/L) 11/02/18 09:32 POC ABG O2 Sat 96 11/02/18 09:32 Abnormal lab findings: Abnormal Labs 10/29/18 10/29/18 10/29/18 17:13 17:13 17:13 RBC 3.62 L Hgb Hct MCV 102 H MCH 34 H RDW 19.6 H [place] % (Auto) 7.8 H Seg Neutrophils % 71.2 H Seg Neuts % (Manual) Lymphocytes % (Manual) Lymphocytes # (Manual) POC ABG pH POC ABG pCO2 POC ABG pO2 Sodium 164 H* Potassium 6.2 H* Chloride 127.5 H Carbon Dioxide BUN 178 H Creatinine 4.2 H Glucose 131 H POC Glucose Calcium 10.7 H C-Reactive Protein Total Protein 9.5 H Albumin 2.6 L TSH 5.310 H Urine pH Urine WBC (Auto) 10/29/18 10/30/18 10/30/18 23:57 00:06 04:35 RBC Hgb Hct MCV MCH RDW [place] % (Auto) Seg Neutrophils % Seg Neuts % (Manual) Lymphocytes % (Manual) Lymphocytes # (Manual) POC ABG pH 7.488 H POC ABG pCO2 32.1 L 34.9 L POC ABG pO2 144 H Sodium Potassium Chloride Carbon Dioxide BUN Creatinine Glucose POC Glucose 131 H Calcium C-Reactive Protein Total Protein Albumin TSH Urine pH Urine WBC (Auto) 10/30/18 10/30/18 10/30/18 05:13 08:54 08:54 RBC 3.56 L Hgb 11.7 L Hct MCV 102 H MCH 33 H RDW 19.2 H [place] % (Auto) Seg Neutrophils % Seg Neuts % (Manual) Lymphocytes % (Manual) Lymphocytes # (Manual) POC ABG pH POC ABG pCO2 POC ABG pO2 Sodium Potassium Chloride Carbon Dioxide BUN Creatinine Glucose POC Glucose 316 H Calcium C-Reactive Protein 5.20 H Total Protein Albumin 2.2 L TSH Urine pH Urine WBC (Auto) 10/30/18 10/30/18 10/30/18 08:59 12:03 18:30 RBC Hgb Hct MCV MCH RDW [place] % (Auto) Seg Neutrophils % Seg Neuts % (Manual) Lymphocytes % (Manual) Lymphocytes # (Manual) POC ABG pH POC ABG pCO2 POC ABG pO2 Sodium 146 H D Potassium Chloride Carbon Dioxide BUN 86 H Creatinine 2.7 H Glucose 262 H POC Glucose 232 H 57 L Calcium C-Reactive Protein Total Protein Albumin TSH Urine pH Urine WBC (Auto) 10/30/18 10/30/18 10/30/18 18:39 19:07 19:42 RBC Hgb Hct MCV MCH RDW [place] % (Auto) Seg Neutrophils % Seg Neuts % (Manual) Lymphocytes % (Manual) Lymphocytes # (Manual) POC ABG pH POC ABG pCO2 POC ABG pO2 Sodium Potassium Chloride Carbon Dioxide BUN Creatinine Glucose POC Glucose < 40 L 51 L Calcium C-Reactive Protein Total Protein Albumin TSH Urine pH 8.0 H Urine WBC (Auto) > 182.0 H 10/30/18 10/30/18 10/30/18 19:51 23:13 23:20 RBC Hgb Hct MCV MCH RDW [place] % (Auto) Seg Neutrophils % Seg Neuts % (Manual) Lymphocytes % (Manual) Lymphocytes # (Manual) POC ABG pH POC ABG pCO2 POC ABG pO2 Sodium Potassium Chloride 108.5 H Carbon Dioxide 21 L BUN 96 H Creatinine 3.0 H Glucose 865 H* 150 H POC Glucose 152 H Calcium C-Reactive Protein Total Protein Albumin TSH Urine pH Urine WBC (Auto) 10/30/18 10/31/18 10/31/18 23:40 04:43 04:43 RBC Hgb Hct MCV 100 H MCH 33 H RDW 18.1 H [place] % (Auto) Seg Neutrophils % Seg Neuts % (Manual) Lymphocytes % (Manual) 4.0 L Lymphocytes # (Manual) 0.3 L POC ABG pH POC ABG pCO2 POC ABG pO2 Sodium Potassium Chloride Carbon Dioxide 19 L BUN 98 H Creatinine 3.2 H Glucose 184 H POC Glucose 145 H Calcium C-Reactive Protein Total Protein Albumin TSH Urine pH Urine WBC (Auto) 10/31/18 10/31/18 10/31/18 05:44 11:44 13:19 RBC Hgb Hct MCV MCH RDW [place] % (Auto) Seg Neutrophils % Seg Neuts % (Manual) Lymphocytes % (Manual) Lymphocytes # (Manual) POC ABG pH POC ABG pCO2 POC ABG pO2 64 L Sodium Potassium Chloride Carbon Dioxide BUN Creatinine Glucose POC Glucose 142 H 196 H Calcium C-Reactive Protein Total Protein Albumin TSH Urine pH Urine WBC (Auto) 10/31/18 11/01/18 11/01/18 17:36 04:07 04:07 RBC 3.40 L Hgb 11.2 L Hct 33.6 L MCV 99 H MCH 33 H RDW 17.5 H [place] % (Auto) Seg Neutrophils % Seg Neuts % (Manual) 80.0 H Lymphocytes % (Manual) 4.0 L Lymphocytes # (Manual) 0.3 L POC ABG pH POC ABG pCO2 POC ABG pO2 Sodium Potassium Chloride Carbon Dioxide 19 L BUN 108 H Creatinine 3.9 H Glucose 138 H POC Glucose 174 H Calcium 7.9 L C-Reactive Protein Total Protein Albumin TSH Urine pH Urine WBC (Auto) 11/01/18 11/01/18 11/01/18 05:24 05:36 13:09 RBC Hgb Hct MCV MCH RDW [place] % (Auto) Seg Neutrophils % Seg Neuts % (Manual) Lymphocytes % (Manual) Lymphocytes # (Manual) POC ABG pH POC ABG pCO2 POC ABG pO2 65 L Sodium Potassium Chloride Carbon Dioxide BUN Creatinine Glucose POC Glucose 153 H 249 H Calcium C-Reactive Protein Total Protein Albumin TSH Urine pH Urine WBC (Auto) 11/01/18 11/02/18 11/02/18 18:11 05:04 07:17 RBC 3.08 L Hgb 10.1 L Hct 30.1 L MCV 98 H MCH 33 H RDW 16.7 H [place] % (Auto) Seg Neutrophils % Seg Neuts % (Manual) 92.0 H Lymphocytes % (Manual) 3.0 L Lymphocytes # (Manual) 0.2 L POC ABG pH POC ABG pCO2 POC ABG pO2 Sodium Potassium Chloride Carbon Dioxide BUN Creatinine Glucose POC Glucose 175 H 118 H Calcium C-Reactive Protein Total Protein Albumin TSH Urine pH Urine WBC (Auto) 11/02/18 11/02/18 07:54 09:32 RBC Hgb Hct MCV MCH RDW [place] % (Auto) Seg Neutrophils % Seg Neuts % (Manual) Lymphocytes % (Manual) Lymphocytes # (Manual) POC ABG pH 7.514 H POC ABG pCO2 POC ABG pO2 70 L Sodium 135 L Potassium Chloride Carbon Dioxide BUN 48 H Creatinine 2.2 H Glucose 170 H POC Glucose Calcium 7.4 L C-Reactive Protein Total Protein Albumin TSH Urine pH Urine WBC (Auto) Chest x-ray: image reviewed (Right lower lobe infiltrate, ETT in good position)
[2018-11-02] MEDS ORDERED: VANCOMYCIN IV ONE (12:57)
[2018-11-02] MEDS ORDERED: NACL 0.9% IV ONE (12:57)
[2018-11-02] MEDS ORDERED: VANCOMYCIN 500 MG in NACL 0.9% 100 ML IV ONE (13:30)
--- NOTE | 2018-11-02 16:28 | Consultation ---
History of Present Illness - Reason for Consult Consult date: 11/02/18 Fever Requesting physician: JESSICA MILLS - History of Present Illness The patient is a 73-year-old male with prostate cancer, ESRD on hemodialysis, diabetes mellitus, peripheral vascular disease status post right-sided AKA is admitted to the [facility] due to altered mental status. Apparently, the patient had been refusing dialysis for a week prior to admission. He was admitted to the hospital and then developed a cardiac arrest requiring ACLS and resuscitation with ROSC in ~5 minutes. He was noted to have a thrombosed AV graft but since he remains critically ill, he underwent a right femoral dialysis catheter placement. Patient had a few low-grade temperatures on 10/30/2018 and 10/31/2018. Since this morning, the patient has been spiking high fevers, MAXIMUM TEMPERATURE of 102.9F. Hence, infectious diseases was consulted. Patient has been on IV ce ftriaxone since 10/30/2018 and vancomycin was added today. Remains critically ill, on pressors and intubated on mechanical ventilation. Review of Systems: Intubated, unable to provide ROS. Past History Past Medical History: cancer, diabetes, DVT Past Surgical History: Other (LE amputation.) Social history: no significant social history Family history: no significant family history Medications and Allergies Allergies Allergy/AdvReac Type Severity Reaction Status Date / Time No Known Allergies Allergy Verified 01/18/18 20:10 Home Medications Medication Instructions Recorded Confirmed Last Taken Type Acetaminophen [Acetaminophen TAB] 650 mg PO Q4H PRN 03/12/18 10/31/18 Unknown History Calcium Acetate [Phoslo] 667 mg PO TID 03/12/18 10/31/18 05/13/18 17:00 History Carvedilol [Coreg] 6.25 mg PO BID 03/12/18 10/31/18 05/13/18 09:00 History Ergocalciferol 50,000 unit PO QWEEK 03/12/18 10/31/18 05/11/18 09:00 History Apixaban [Eliquis] 2.5 mg PO BID tablet 08/21/18 10/31/18 Unknown Rx Megestrol [Megace] 400 mg PO QDAY 10/31/18 10/31/18 Unknown History Mirtazapine [Remeron] 15 mg PO QHS 10/31/18 10/31/18 Unknown History Elaine-José Rx Tablet 1 tab PO QDAY 10/31/18 10/31/18 Unknown History Sodium Bicarbonate 650 mg PO BID 10/31/18 10/31/18 Unknown History traMADol [Ultram 50 MG tab] 25 mg PO Q12H PRN 10/31/18 10/31/18 Unknown History Active Meds: Active Medications Acetaminophen (Tylenol) 650 mg FEEDTUBE Q6H PRN PRN Reason: Fever >101 Lipase/Protease/Amylase (Pancreaze Dr 10,500 Unit) 1 each FEEDTUBE PRN PRN PRN Reason: For Clogged Feeding Tube Lipase/Protease/Amylase (Pancreaze Dr 10,500 Unit) 1 each FEEDTUBE PRN PRN PRN Reason: For Clogged Feeding Tube Famotidine (Pepcid) 20 mg PO DAILY [facility] Last Admin: 11/02/18 11:04 Dose: 20 mg Documented by: Heparin Sodium (Porcine) (Heparin) 5,000 unit SUB-Q Q8HR KIRSTEN Last Admin: 11/02/18 13:15 Dose: 5,000 unit Documented by: Norepinephrine (Levophed Drip 4 Mg/Ns 250 Ml) 4 mg in 250 mls @ 7.5 mls/hr IV TITR KIRSTEN; Protocol Last Admin: 11/02/18 13:00 Dose: 6 mcg/min, 22.5 mls/hr Documented by: Sodium Chloride (Nacl 0.9%) 100 mls @ 999 mls/hr IV ALEJO PRN PRN Reason: Hypotension Insulin Human Lispro (Humalog) 0 unit SUB-Q Q6HR KIRSTEN; Protocol Last Admin: 11/02/18 13:15 Dose: 3 unit Documented by: Simple Syrup (Simple Syrup) 15 ml FEEDTUBE PRN PRN PRN Reason: Hypoglycemia Simple Syrup (Simple Syrup) 30 ml FEEDTUBE PRN PRN PRN Reason: Hypoglycemia Last Admin: 10/30/18 18:43 Dose: 30 ml Documented by: Simple Syrup (Simple Syrup) 15 ml FEEDTUBE PRN PRN PRN Reason: Hypoglycemia Simple Syrup (Simple Syrup) 30 ml FEEDTUBE PRN PRN PRN Reason: Hypoglycemia Sodium Bicarbonate (Sodium Bicarbonate) 325 mg FEEDTUBE PRN PRN PRN Reason: For Clogged Feeding Tube Sodium Bicarbonate (Sodium Bicarbonate) 325 mg FEEDTUBE PRN PRN PRN Reason: For Clogged Feeding Tube Physical Examination - Physical Exam Narrative exam: Physical Exam: Constitutional: sedated, intubated Head, Ears, Nose: Normocephalic, atraumatic. External ears, nose normal Eyes: Conjunctivae/corneas clear. No icterus. No ptosis. Neck: Supple, no meningeal signs Oral: intubated Cardiovascular: S1, S2 normal. Respiratory: Good air entry, clear to auscultation bilaterally GI: Soft, bowel sounds hypoactive. Suprapubic cath + with cloudy urine Musculoskeletal: Right AKA, left TMA stumps healed. Right gluteal region with eschar. Left femoral HD cath + Skin: No rash or abscess Hem/Lymphatic: No palpable cervical or supraclavicular nodes. No lymphangitis Psych: no agitation Neurological: sedated, intubated, on vent - Constitutional Vitals: Vital Signs Temp Pulse Resp BP Pulse Ox 100.4 F H 117 H 36 H 99/72 98 11/02/18 12:00 11/02/18 15:34 11/02/18 14:30 11/02/18 15:34 11/02/18 15:34 Temperature -Last 24 Hours Temperature 100.4 F Temperature 102.9 F Temperature 101.6 F Temperature 98.8 F Temperature 98.2 F Temperature 98.3 F Results - Labs CBC & Chem 7: 11/02/18 07:17 11/02/18 07:54 Labs: Abnormal lab results 11/01/18 11/02/18 11/02/18 Range/Units 18:11 05:04 07:17 RBC 3.08 L (3.65-5.03) M/mm3 Hgb 10.1 L (11.8-15.2) gm/dl Hct 30.1 L (35.5-45.6) % MCV 98 H (84-94) fl MCH 33 H (28-32) pg RDW 16.7 H (13.2-15.2) % Seg Neuts % (Manual) 92.0 H (40.0-70.0) % Lymphocytes % (Manual) 3.0 L (13.4-35.0) % Lymphocytes # (Manual) 0.2 L (1.2-5.4) K/mm3 POC ABG pH (7.35-7.45) POC ABG pO2 (80-105) Sodium (137-145) mmol/L BUN (9-20) mg/dL Creatinine (0.8-1.5) mg/dL Glucose (75-100) mg/dL POC Glucose 175 H 118 H (70-105) Calcium (8.4-10.2) mg/dL 11/02/18 11/02/18 11/02/18 Range/Units 07:54 09:32 12:28 RBC (3.65-5.03) M/mm3 Hgb (11.8-15.2) gm/dl Hct (35.5-45.6) % MCV (84-94) fl MCH (28-32) pg RDW (13.2-15.2) % Seg Neuts % (Manual) (40.0-70.0) % Lymphocytes % (Manual) (13.4-35.0) % Lymphocytes # (Manual) (1.2-5.4) K/mm3 POC ABG pH 7.514 H (7.35-7.45) POC ABG pO2 70 L (80-105) Sodium 135 L (137-145) mmol/L BUN 48 H (9-20) mg/dL Creatinine 2.2 H (0.8-1.5) mg/dL Glucose 170 H (75-100) mg/dL POC Glucose 242 H (70-105) Calcium 7.4 L (8.4-10.2) mg/dL - Imaging and Cardiology Chest x-ray: report reviewed, image reviewed (Chest x-ray from today shows interval development of right lower lobe infiltrate.) Abdominal x-ray: report reviewed, image reviewed (X-ray abdomen 10/30/2018 shows mildly dilated bowel.) Assessment and Plan Cultures: 10/29/2018 Blood culture: No growth 10/30/2018 sputum culture: MRSA 10/30/2018 urine culture: Mixed growth 11/02/2018 blood culture: In progress A/P: 73-year-old male with prostate cancer, ESRD on hemodialysis, diabetes mellitus, peripheral vascular disease status post right-sided AKA is admitted to the [facility] due to altered mental status. Apparently, the patient had been refusing dialysis for a week prior to admission. Now with: 1) Severe sepsis with shock s/p PEA arrest: on pressors, mechanical ventilation. 2) Right-sided pneumonia with acute hypoxic respiratory failure: On mechanical ventilation. Chest x-ray showing right-sided infiltrate. Sputum culture growing MRSA. 3) Possible UTI: Patient with indwelling suprapubic catheter. Also with ESRD on hemodialysis. This makes UA difficult to interpret for infection since quite likely to have urinary sediment. 4) ESRD on hemodialysis: Noncompliant. Renally dose abx. 5) Peripheral vascular disease: Status post right BKA, left TMA. 6) Right gluteal decubitus ulcer with eschar: continue wound care. 7) R sphenoid sinusitis noted on CT: already on abx. Recs: Renally adjusted IV cefepime and vancomycin, target pre-dialysis level 10-20 mcg/ml Follow-up blood cultures Overall extremely poor prognosis MD [facility] C: [phone] O: [phone] F: [phone]
[2018-11-02] MEDS ORDERED: VANCOMYCIN PHARMACY TO DOSE IV SCH (17:00)
--- NOTE | 2018-11-02 18:32 | Progress Note ---
Assessment and Plan - Patient Problems (1) Altered mental status Current Visit: Yes Status: Acute Qualifiers: Altered mental status type: unspecified Qualified Code(s): R41.82 - Altered mental status, unspecified Plan to address problem: most likely due to sinus infection. (2) Hyperkalemia Current Visit: Yes Status: Acute Plan to address problem: Treated, and continue to correct with HD. corrected. (3) Hypernatremia Current Visit: Yes Status: Acute Plan to address problem: correct with HD. As above when feasible with the Renal service. (4) Uremia Current Visit: Yes Status: Acute Plan to address problem: treat underlying cause. (5) Acute encephalopathy Current Visit: Yes Status: Chronic Plan to address problem: supportive care. (6) ESRD needing dialysis Current Visit: Yes Status: Chronic Plan to address problem: Continue on HD. as above once feasible. (7) Sepsis Current Visit: Yes Status: Acute Plan to address problem: treat the etiology.Most likely due to sinus infection. Subjective Date of service: 11/02/18 Principal diagnosis: sepsis, acute resp, failure. Interval history: Patient seen/examined,in the ICU. I have spoken to the daughter, and his sister today, regarding plan of care, and prognosis. I have rec less agressive path, including hospice. They will think about it ,and let me know. Mean while, will continue current management. His prognosis is quite poor at this time. Patient seen/examined, resting in bed, labs reviewed.Still on the vent.If unable to be weaned off the vent, on timely /expected time, will push for [facility] eval[facility] to start preparing fot this possibility. Patient seen/examined, resting in bed, still not weanable yet.He had HD today. patient seen/examined, resting in bed. labs/records/notes reviewed, including ID consult notes. Cxr with PNA., 24hr Tm 102. Objective - Constitutional Vitals: Vital Signs - 12hr 11/02/18 11/02/18 11/02/18 06:30 06:45 07:00 Temperature Pulse Rate 125 H 125 H 130 H Respiratory 31 H 35 H 38 H Rate Blood Pressure 101/65 99/66 140/73 O2 Sat by Pulse 97 97 98 Oximetry 11/02/18 11/02/18 11/02/18 07:15 07:30 07:31 Temperature Pulse Rate 124 H 126 H 127 H Respiratory 36 H 38 H Rate Blood Pressure 102/63 118/66 118/66 O2 Sat by Pulse 98 98 98 Oximetry 11/02/18 11/02/18 11/02/18 07:45 08:00 08:15 Temperature 102.9 F H Pulse Rate 126 H 124 H 123 H Respiratory 27 H 37 H 38 H Rate Blood Pressure 116/70 104/68 113/67 O2 Sat by Pulse 99 99 99 Oximetry 11/02/18 11/02/18 11/02/18 08:30 08:45 09:00 Temperature Pulse Rate 122 H 122 H 123 H Respiratory 38 H 38 H 37 H Rate Blood Pressure 102/63 100/61 96/56 O2 Sat by Pulse 98 98 98 Oximetry 11/02/18 11/02/18 11/02/18 09:15 09:30 09:32 Temperature Pulse Rate 121 H 122 H 122 H Respiratory 36 H 35 H Rate Blood Pressure 98/58 88/57 88/57 O2 Sat by Pulse 99 97 98 Oximetry 11/02/18 11/02/18 11/02/18 09:45 10:00 10:15 Temperature Pulse Rate 122 H 123 H 123 H Respiratory 38 H 37 H 37 H Rate Blood Pressure 95/56 93/59 91/57 O2 Sat by Pulse 98 98 98 Oximetry 11/02/18 11/02/18 11/02/18 10:26 10:30 10:45 Temperature Pulse Rate 123 H 123 H 122 H Respiratory 30 H 35 H 38 H Rate Blood Pressure 91/57 90/63 99/62 O2 Sat by Pulse 98 98 98 Oximetry 11/02/18 11/02/18 11/02/18 11:00 11:15 11:30 Temperature Pulse Rate 122 H 121 H 118 H Respiratory 36 H 36 H 34 H Rate Blood Pressure 92/54 95/57 82/50 O2 Sat by Pulse 97 98 97 Oximetry 11/02/18 11/02/18 11/02/18 11:45 12:00 12:15 Temperature 100.4 F H Pulse Rate 118 H 119 H 120 H Respiratory 35 H 41 H 35 H Rate Blood Pressure 92/53 81/53 90/60 O2 Sat by Pulse 97 98 98 Oximetry 11/02/18 11/02/18 11/02/18 12:21 12:30 12:45 Temperature Pulse Rate 120 H 120 H 119 H Respiratory 17 35 H 35 H Rate Blood Pressure 90/60 99/60 98/61 O2 Sat by Pulse 97 97 97 Oximetry 11/02/18 11/02/18 11/02/18 13:00 13:15 13:30 Temperature Pulse Rate 120 H 120 H 118 H Respiratory 36 H 34 H 34 H Rate Blood Pressure 84/49 97/58 109/66 O2 Sat by Pulse 97 98 98 Oximetry 11/02/18 11/02/18 11/02/18 13:45 14:00 14:15 Temperature Pulse Rate 117 H 118 H 118 H Respiratory 37 H 34 H 34 H Rate Blood Pressure 103/64 142/76 109/63 O2 Sat by Pulse 98 100 99 Oximetry 11/02/18 11/02/18 11/02/18 14:30 14:45 15:00 Temperature Pulse Rate 117 H 118 H 117 H Respiratory 36 H 35 H 36 H Rate Blood Pressure 96/61 97/63 100/61 O2 Sat by Pulse 98 98 98 Oximetry 11/02/18 11/02/18 11/02/18 15:15 15:30 15:34 Temperature Pulse Rate 118 H 117 H 117 H Respiratory 36 H 33 H Rate Blood Pressure 109/65 99/72 99/72 O2 Sat by Pulse 98 99 98 Oximetry 11/02/18 11/02/18 11/02/18 15:45 16:00 16:15 Temperature Pulse Rate 117 H 118 H 118 H Respiratory 35 H 34 H 33 H Rate Blood Pressure 116/71 98/64 95/60 O2 Sat by Pulse 100 98 98 Oximetry 11/02/18 11/02/18 11/02/18 16:30 16:45 17:00 Temperature Pulse Rate 119 H 116 H 115 H Respiratory 37 H 33 H 34 H Rate Blood Pressure 84/53 88/54 92/59 O2 Sat by Pulse 98 98 99 Oximetry 11/02/18 17:21 Temperature Pulse Rate 113 H Respiratory Rate Blood Pressure 106/65 O2 Sat by Pulse 98 Oximetry General appearance: Present: mild distress, cachectic - EENT Eyes: PERRL, EOM intact ENT: hearing intact, clear oral mucosa Ears: bilateral: normal - Neck Neck: supple, normal ROM - Breasts Breasts: deferred - Cardiovascular Rhythm: regular Heart Sounds: Present: S1 & S2. Absent: gallop, rub Extremities: pulses intact, No edema, normal color, Full ROM - Gastrointestinal General gastrointestinal: Present: soft, non-tender, non-distended, normal bowel sounds Rectal Exam: deferred - Genitourinary Male genitourinary: deferred - Integumentary Integumentary: clear, warm, dry - Labs CBC & Chem 7: 11/02/18 07:17 11/02/18 07:54 Labs: Abnormal lab results 11/01/18 11/02/18 11/02/18 Range/Units 18:11 05:04 07:17 RBC 3.08 L (3.65-5.03) M/mm3 Hgb 10.1 L (11.8-15.2) gm/dl Hct 30.1 L (35.5-45.6) % MCV 98 H (84-94) fl MCH 33 H (28-32) pg RDW 16.7 H (13.2-15.2) % Seg Neuts % (Manual) 92.0 H (40.0-70.0) % Lymphocytes % (Manual) 3.0 L (13.4-35.0) % Lymphocytes # (Manual) 0.2 L (1.2-5.4) K/mm3 POC ABG pH (7.35-7.45) POC ABG pO2 (80-105) Sodium (137-145) mmol/L BUN (9-20) mg/dL Creatinine (0.8-1.5) mg/dL Glucose (75-100) mg/dL POC Glucose 175 H 118 H (70-105) Calcium (8.4-10.2) mg/dL 11/02/18 11/02/18 11/02/18 Range/Units 07:54 09:32 12:28 RBC (3.65-5.03) M/mm3 Hgb (11.8-15.2) gm/dl Hct (35.5-45.6) % MCV (84-94) fl MCH (28-32) pg RDW (13.2-15.2) % Seg Neuts % (Manual) (40.0-70.0) % Lymphocytes % (Manual) (13.4-35.0) % Lymphocytes # (Manual) (1.2-5.4) K/mm3 POC ABG pH 7.514 H (7.35-7.45) POC ABG pO2 70 L (80-105) Sodium 135 L (137-145) mmol/L BUN 48 H (9-20) mg/dL Creatinine 2.2 H (0.8-1.5) mg/dL Glucose 170 H (75-100) mg/dL POC Glucose 242 H (70-105) Calcium 7.4 L (8.4-10.2) mg/dL Medications & Allergies - Medications Allergies/Adverse Reactions: Allergies No Known Allergies Allergy (Verified 01/18/18 20:10) Home Medications: Home Medications Medication Instructions Recorded Confirmed Last Taken Type Acetaminophen [Acetaminophen TAB] 650 mg PO Q4H PRN 03/12/18 10/31/18 Unknown History Calcium Acetate [Phoslo] 667 mg PO TID 03/12/18 10/31/18 05/13/18 17:00 History Carvedilol [Coreg] 6.25 mg PO BID 03/12/18 10/31/18 05/13/18 09:00 History Ergocalciferol 50,000 unit PO QWEEK 03/12/18 10/31/18 05/11/18 09:00 History Apixaban [Eliquis] 2.5 mg PO BID tablet 08/21/18 10/31/18 Unknown Rx Megestrol [Megace] 400 mg PO QDAY 10/31/18 10/31/18 Unknown History Mirtazapine [Remeron] 15 mg PO QHS 10/31/18 10/31/18 Unknown History Elaine-José Rx Tablet 1 tab PO QDAY 10/31/18 10/31/18 Unknown History Sodium Bicarbonate 650 mg PO BID 10/31/18 10/31/18 Unknown History traMADol [Ultram 50 MG tab] 25 mg PO Q12H PRN 10/31/18 10/31/18 Unknown History Active Medications: Generic Name Dose Route Start Last Admin Trade Name Freq PRN Reason Stop Dose Admin Acetaminophen 650 mg 11/02/18 09:25 Tylenol FEEDTUBE Q6H PRN Fever >101 Lipase/Protease/Amylase 1 each 10/30/18 11:37 Raf Palomo 10,500 Unit FEEDTUBE PRN PRN For Clogged Feeding Tube Lipase/Protease/Amylase 1 each 11/01/18 10:[address] 10,500 Unit FEEDTUBE PRN PRN For Clogged Feeding Tube Famotidine 20 mg 11/01/18 10:00 11/02/18 11:04 Pepcid PO 20 mg DAILY KIRSTEN Administration Heparin Sodium (Porcine) 5,000 unit 10/29/18 22:00 11/02/18 13:15 Heparin SUB-Q 5,000 unit Q8HR KIRSTEN Administration Norepinephrine 4 mg in 250 mls @ 7.5 mls/hr 10/30/18 01:00 11/02/18 17:51 Levophed Drip 4 Mg/Ns 250 Ml IV 8 mcg/min TITR KIRSTEN 30 mls/hr Titration Protocol 2 MCG/MIN Sodium Chloride 100 mls @ 999 mls/hr 11/01/18 09:22 Nacl 0.9% IV ALEJO PRN Hypotension Cefepime HCl 1 gm in 100 mls @ 200 mls/hr 11/02/18 18:00 Maxipime/Ns 1 Gm/100 Ml IV QPM KIRSTEN Protocol Insulin Human Lispro 0 unit 10/30/18 10:00 11/02/18 17:52 Humalog SUB-Q 4 unit Q6HR KIRSTEN Administration Protocol Simple Syrup 15 ml 10/30/18 11:37 Simple Syrup FEEDTUBE PRN PRN Hypoglycemia Simple Syrup 30 ml 10/30/18 11:37 10/30/18 18:43 Simple Syrup FEEDTUBE 30 ml PRN PRN Administration Hypoglycemia Simple Syrup 15 ml 11/01/18 10:04 Simple Syrup FEEDTUBE PRN PRN Hypoglycemia Simple Syrup 30 ml 11/01/18 10:04 Simple Syrup FEEDTUBE PRN PRN Hypoglycemia Sodium Bicarbonate 325 mg 10/30/18 11:37 Sodium Bicarbonate FEEDTUBE PRN PRN For Clogged Feeding Tube Sodium Bicarbonate 325 mg 11/01/18 10:04 Sodium Bicarbonate FEEDTUBE PRN PRN For Clogged Feeding Tube
[2018-11-02] MEDS: MAXIPIME/NS 1 GM/100 ML 1 GM/100 ML BAG IV SCH (18:35)
[2018-11-03] MEDS: LEVOPHED DRIP 4 MG/NS 250 ML 4 MG/250 ML BAG IV SCH ×3 (03:21→20:49)
[2018-11-03] MEDS: HEPARIN SUB-Q SCH ×3 (05:11→23:48)
[2018-11-03 05:29] LABS: Hematocrit 28.5 % (35.5-45.6); Hemoglobin 9.4 gm/dl (11.8-15.2); Mean Corpuscular HGB Conc 33 % (32-34); Mean Corpuscular Volume 99 fl (84-94); Platelet Count 159 K/mm3 (140-440); Red Blood Count 2.87 M/mm3 (3.65-5.03); Red Cell Distribution Width 16.7 % (13.2-15.2)
[2018-11-03 06:16] LABS: Basophils % (Manual) 0 % (0.0-1.8); Eosinophils % (Manual) 0 % (0.0-4.3); Platelet Estimate Consistent w Auto; RBC Morphology Normal; Total Cells Counted 100
[2018-11-03] MEDS: HumaLOG SUB-Q SCH ×5 (06:30→23:48)
--- NOTE | 2018-11-03 07:35 | Progress Note ---
Assessment and Plan 1. ESRD: Patient was last dialyzed 2 days ago. Since patient is hypotensive on pressors and tachycardia will hold HD today. No acute indication for HD today. Monitor for [employer] needs. 2. FEN: Hyperkalemia, improved. Hypernatremia, improved. 3. Respiratory failure: On vent. 4. Shock: On Levophed. 5. Urosepsis. 6. Anemia. Subjective Date of service: 11/03/18 Principal diagnosis: sepsis, acute resp, failure. Interval history: Patient was seen and examined at the bedside. Objective - Vital Signs Vital signs: Vital Signs - 12hr 11/02/18 11/02/18 11/02/18 19:45 20:00 20:15 Temperature 100.0 F H Pulse Rate 111 H 110 H 110 H Respiratory 36 H 35 H 36 H Rate Blood Pressure 78/50 95/59 95/62 O2 Sat by Pulse 98 99 100 Oximetry 11/02/18 11/02/18 11/02/18 20:24 20:28 20:30 Temperature Pulse Rate 109 H 113 H 107 H Respiratory 32 H 19 Rate Blood Pressure 95/62 95/62 101/56 O2 Sat by Pulse 99 99 100 Oximetry 11/02/18 11/02/18 11/02/18 20:46 21:00 21:15 Temperature Pulse Rate 110 H 109 H 109 H Respiratory 37 H 35 H 35 H Rate Blood Pressure 126/76 99/59 135/76 O2 Sat by Pulse 100 99 100 Oximetry 11/02/18 11/02/18 11/02/18 21:30 21:45 22:00 Temperature Pulse Rate 108 H 110 H 106 H Respiratory 35 H 38 H 32 H Rate Blood Pressure 109/63 105/63 113/63 O2 Sat by Pulse 99 99 99 Oximetry 11/02/18 11/02/18 11/02/18 22:15 22:30 22:45 Temperature Pulse Rate 108 H 111 H 106 H Respiratory 37 H 35 H 36 H Rate Blood Pressure 97/59 65/33 88/54 O2 Sat by Pulse 99 99 99 Oximetry 11/02/18 11/02/18 11/02/18 23:00 23:15 23:30 Temperature Pulse Rate 107 H 108 H 105 H Respiratory 36 H 36 H 31 H Rate Blood Pressure 106/63 107/63 106/64 O2 Sat by Pulse 99 99 99 Oximetry 11/02/18 11/02/18 11/03/18 23:45 23:46 00:00 Temperature 100.4 F H Pulse Rate 106 H 108 H 107 H Respiratory 34 H 37 H Rate Blood Pressure 103/66 107/63 119/71 O2 Sat by Pulse 99 99 99 Oximetry 11/03/18 11/03/18 11/03/18 00:15 00:30 00:45 Temperature Pulse Rate 104 H 107 H 107 H Respiratory 25 H 35 H 29 H Rate Blood Pressure 99/59 106/62 116/68 O2 Sat by Pulse 99 99 99 Oximetry 11/03/18 11/03/18 11/03/18 01:00 01:15 01:30 Temperature Pulse Rate 106 H 109 H 109 H Respiratory 22 21 37 H Rate Blood Pressure 93/54 120/73 118/73 O2 Sat by Pulse 99 100 100 Oximetry 11/03/18 11/03/18 11/03/18 01:45 02:00 02:15 Temperature Pulse Rate 107 H 107 H 105 H Respiratory 35 H 15 32 H Rate Blood Pressure 120/75 112/79 100/63 O2 Sat by Pulse 100 100 99 Oximetry 11/03/18 11/03/18 11/03/18 02:30 02:45 03:00 Temperature Pulse Rate 105 H 107 H 104 H Respiratory 36 H 39 H 34 H Rate Blood Pressure 99/72 112/73 102/69 O2 Sat by Pulse 100 99 100 Oximetry 11/03/18 11/03/18 11/03/18 03:15 03:30 03:45 Temperature Pulse Rate 108 H 103 H 103 H Respiratory 38 H 32 H 36 H Rate Blood Pressure 87/50 150/75 132/77 O2 Sat by Pulse 100 100 100 Oximetry 11/03/18 11/03/18 11/03/18 04:00 04:15 04:30 Temperature 100.6 F H Pulse Rate 101 H 102 H 103 H Respiratory 25 H 33 H 26 H Rate Blood Pressure 115/67 123/74 128/68 O2 Sat by Pulse 100 100 100 Oximetry 11/03/18 11/03/18 11/03/18 04:34 04:45 05:00 Temperature Pulse Rate 103 H 109 H 101 H Respiratory 35 H 33 H Rate Blood Pressure 123/74 128/95 126/64 O2 Sat by Pulse 100 100 100 Oximetry 11/03/18 11/03/18 11/03/18 05:15 05:30 05:45 Temperature Pulse Rate 100 H 101 H 101 H Respiratory 19 30 H 31 H Rate Blood Pressure 130/71 96/54 119/67 O2 Sat by Pulse 100 99 100 Oximetry 11/03/18 11/03/18 11/03/18 06:00 06:15 06:30 Temperature Pulse Rate 100 H 101 H 102 H Respiratory 25 H 30 H 24 Rate Blood Pressure 115/71 113/71 123/78 O2 Sat by Pulse 100 99 98 Oximetry - General Appearance General appearance: well-developed, appears stated age, cachectic, intubated EENT: ATNC Neck: supple Respiratory: Present: Clear to Ascultation Cardiology: regular, tachycardia, S1S2, no murmurs Gastrointestinal: normoactive bowel sounds, no tenderness, other (suprapubic catheter noted) Integumentary: ulcer (left LE) Neurologic: obtunded Musculoskeletal: other (right AKA, left TMA, left groin hemodialysis catheter) - Lab 11/04/18 05:05 11/04/18 05:05 Most recent lab results Calcium 7.4 mg/dL (8.4-10.2) L 11/02/18 07:54 Phosphorus 3.70 mg/dL (2.5-4.5) 10/31/18 04:43 Medications & Allergies - Medications Allergies/Adverse Reactions: Allergies No Known Allergies Allergy (Verified 01/18/18 20:10) Home Medications: Home Medications Medication Instructions Recorded Confirmed Last Taken Type Acetaminophen [Acetaminophen TAB] 650 mg PO Q4H PRN 03/12/18 10/31/18 Unknown History Calcium Acetate [Phoslo] 667 mg PO TID 03/12/18 10/31/18 05/13/18 17:00 History Carvedilol [Coreg] 6.25 mg PO BID 03/12/18 10/31/18 05/13/18 09:00 History Ergocalciferol 50,000 unit PO QWEEK 03/12/18 10/31/18 05/11/18 09:00 History Apixaban [Eliquis] 2.5 mg PO BID tablet 08/21/18 10/31/18 Unknown Rx Megestrol [Megace] 400 mg PO QDAY 10/31/18 10/31/18 Unknown History Mirtazapine [Remeron] 15 mg PO QHS 10/31/18 10/31/18 Unknown History Elaine-José Rx Tablet 1 tab PO QDAY 10/31/18 10/31/18 Unknown History Sodium Bicarbonate 650 mg PO BID 10/31/18 10/31/18 Unknown History traMADol [Ultram 50 MG tab] 25 mg PO Q12H PRN 10/31/18 10/31/18 Unknown History Active Medications: Generic Name Dose Route Start Last Admin Trade Name Gustavoq PRN Reason Stop Dose Admin Acetaminophen 650 mg 11/02/18 09:25 Tylenol FEEDTUBE Q6H PRN Fever >101 Lipase/Protease/Amylase 1 each 11/01/18 10:[address] 10,500 Unit FEEDTUBE PRN PRN For Clogged Feeding Tube Famotidine 20 mg 11/01/18 10:00 11/02/18 11:04 Pepcid PO 20 mg DAILY KIRSTEN Administration Heparin Sodium (Porcine) 5,000 unit 10/29/18 22:00 11/03/18 05:11 Heparin SUB-Q 5,000 unit Q8HR KIRSTEN Administration Norepinephrine 4 mg in 250 mls @ 7.5 mls/hr 10/30/18 01:00 11/03/18 03:21 Levophed Drip 4 Mg/Ns 250 Ml IV 10 mcg/min TITR KIRSTEN 37.5 mls/hr Administration Protocol 2 MCG/MIN Sodium Chloride 100 mls @ 999 mls/hr 11/01/18 09:22 Nacl 0.9% IV ALEJO PRN Hypotension Cefepime HCl 1 gm in 100 mls @ 200 mls/hr 11/02/18 18:00 11/02/18 18:35 Maxipime/Ns 1 Gm/100 Ml IV 200 mls/hr QPM KIRSTEN Administration Protocol Insulin Human Lispro 0 unit 10/30/18 10:00 11/03/18 06:30 Humalog SUB-Q 3 unit Q6HR KIRSTEN Administration Protocol Simple Syrup 15 ml 11/01/18 10:04 Simple Syrup FEEDTUBE PRN PRN Hypoglycemia Simple Syrup 30 ml 11/01/18 10:04 Simple Syrup FEEDTUBE PRN PRN Hypoglycemia Sodium Bicarbonate 325 mg 11/01/18 10:04 Sodium Bicarbonate FEEDTUBE PRN PRN For Clogged Feeding Tube
[2018-11-03] MEDS: PEPCID PO SCH (14:42)
--- NOTE | 2018-11-03 17:33 | Progress Note ---
Assessment and Plan - Patient Problems (1) Altered mental status Current Visit: Yes Status: Acute Qualifiers: Altered mental status type: unspecified Qualified Code(s): R41.82 - Altered mental status, unspecified Plan to address problem: most likely due to sinus infection. (2) Hyperkalemia Current Visit: Yes Status: Acute Plan to address problem: Treated, and continue to correct with HD. corrected. (3) Hypernatremia Current Visit: Yes Status: Acute Plan to address problem: correct with HD. As above when feasible with the Renal service. (4) Uremia Current Visit: Yes Status: Acute Plan to address problem: treat underlying cause. (5) Acute encephalopathy Current Visit: Yes Status: Chronic Plan to address problem: supportive care. (6) ESRD needing dialysis Current Visit: Yes Status: Chronic Plan to address problem: Continue on HD. as above once feasible. (7) Sepsis Current Visit: Yes Status: Acute Plan to address problem: treat the etiology.Most likely due to sinus infection. Subjective Date of service: 11/03/18 Principal diagnosis: sepsis, acute resp, failure. Interval history: Patient seen/examined,in the ICU. I have spoken to the daughter, and his sister today, regarding plan of care, and prognosis. I have rec less aggressive path, including hospice. They will think about it ,and let me know. Mean while, will continue current management. His prognosis is quite poor at this time. Patient seen/examined, resting in bed, labs reviewed.Still on the vent.If unable to be weaned off the vent, on timely /expected time, will push for LTAC eval/placement at [facility].[employer] site manager to start preparing for this possibility. Patient seen/examined, resting in bed, still not wean able yet.He had HD today. patient seen/examined, resting in bed. labs/records/notes reviewed, including ID consult notes. Cxr with PNA., 24hr Tm 102. Patient seen/examined, resting in bed, NR, BP low, and Levo increased back up ,to maintain any appreciable reading. Labs reviewed. I have discussed/updated the daughter Ramón today, discussed code status again, and prognosis,as well as long time plan/disposition.She has signed a Do NOT Resuscitate, and the other family member suppose to sign hers today, or tomorrow. I have recommended, and she is in agreement to the LTAC placement at [facility], where he can also get trached, if, and when feasible. I want the case sealer to act on this on timely manner.MRSA positive in the sputum.ID on the case. Objective - Constitutional Vitals: Vital Signs - 12hr 11/03/18 11/03/18 11/03/18 05:30 05:45 06:00 Temperature Pulse Rate 101 H 101 H 100 H Pulse Rate [ From Monitor] Respiratory 30 H 31 H 25 H Rate Blood Pressure 96/54 119/67 115/71 O2 Sat by Pulse 99 100 100 Oximetry 11/03/18 11/03/18 11/03/18 06:15 06:30 06:45 Temperature Pulse Rate 101 H 102 H 104 H Pulse Rate [ From Monitor] Respiratory 30 H 24 23 Rate Blood Pressure 113/71 123/78 107/58 O2 Sat by Pulse 99 98 98 Oximetry 11/03/18 11/03/18 11/03/18 07:00 07:15 07:30 Temperature Pulse Rate 101 H 103 H 105 H Pulse Rate [ From Monitor] Respiratory 24 32 H 32 H Rate Blood Pressure 119/69 87/51 116/74 O2 Sat by Pulse 98 98 98 Oximetry 11/03/18 11/03/18 11/03/18 07:33 07:45 08:00 Temperature Pulse Rate 107 H 105 H 107 H Pulse Rate [ 105 H From Monitor] Respiratory 33 H 35 H Rate Blood Pressure 116/74 105/68 140/78 O2 Sat by Pulse 99 99 99 Oximetry 11/03/18 11/03/18 11/03/18 08:15 08:30 08:32 Temperature 99.3 F Pulse Rate 107 H 108 H Pulse Rate [ From Monitor] Respiratory 33 H 36 H Rate Blood Pressure 127/74 138/80 O2 Sat by Pulse 99 99 Oximetry 11/03/18 11/03/18 11/03/18 08:45 09:00 09:15 Temperature Pulse Rate 107 H 108 H 106 H Pulse Rate [ From Monitor] Respiratory 35 H 36 H 36 H Rate Blood Pressure 121/76 114/75 128/79 O2 Sat by Pulse 98 99 99 Oximetry 11/03/18 11/03/18 11/03/18 09:30 09:45 10:00 Temperature Pulse Rate 108 H 111 H 110 H Pulse Rate [ From Monitor] Respiratory 35 H 35 H 37 H Rate Blood Pressure 131/72 133/72 87/52 O2 Sat by Pulse 99 100 100 Oximetry 11/03/18 11/03/18 11/03/18 10:15 10:30 10:45 Temperature Pulse Rate 109 H 106 H 105 H Pulse Rate [ From Monitor] Respiratory 36 H 34 H 32 H Rate Blood Pressure 78/49 89/58 107/62 O2 Sat by Pulse 99 99 99 Oximetry 11/03/18 11/03/18 11/03/18 11:00 11:15 11:30 Temperature Pulse Rate 105 H 105 H 104 H Pulse Rate [ From Monitor] Respiratory 36 H 36 H 34 H Rate Blood Pressure 112/72 97/61 125/69 O2 Sat by Pulse 99 99 100 Oximetry 11/03/18 11/03/18 11/03/18 11:45 12:00 12:15 Temperature 99.1 F Pulse Rate 103 H 106 H 112 H Pulse Rate [ From Monitor] Respiratory 25 H 34 H 36 H Rate Blood Pressure 92/58 125/77 163/90 O2 Sat by Pulse 98 99 100 Oximetry 11/03/18 11/03/18 11/03/18 12:30 12:45 13:00 Temperature Pulse Rate 107 H 107 H 106 H Pulse Rate [ From Monitor] Respiratory 36 H 34 H 32 H Rate Blood Pressure 119/74 118/72 130/72 O2 Sat by Pulse 99 99 99 Oximetry 11/03/18 11/03/18 11/03/18 13:15 13:30 13:45 Temperature Pulse Rate 105 H 105 H 107 H Pulse Rate [ From Monitor] Respiratory 32 H 34 H 37 H Rate Blood Pressure 138/69 111/70 111/70 O2 Sat by Pulse 99 98 98 Oximetry 11/03/18 11/03/18 11/03/18 14:00 14:15 14:30 Temperature Pulse Rate 106 H 105 H 110 H Pulse Rate [ From Monitor] Respiratory 25 H 33 H 35 H Rate Blood Pressure 92/52 102/62 150/78 O2 Sat by Pulse 98 98 99 Oximetry 11/03/18 11/03/18 11/03/18 14:45 15:00 15:15 Temperature Pulse Rate 107 H 107 H 108 H Pulse Rate [ From Monitor] Respiratory 32 H 32 H 33 H Rate Blood Pressure 112/67 111/62 119/63 O2 Sat by Pulse 99 99 99 Oximetry 11/03/18 11/03/1819 15:30 15:45 16:00 Temperature Pulse Rate 112 H 113 H 112 H Pulse Rate [ 105 H From Monitor] Respiratory 35 H 32 H 33 H Rate Blood Pressure 106/61 85/46 95/48 O2 Sat by Pulse 99 98 98 Oximetry 11/03/18 11/03/18 11/03/18 16:15 16:30 16:57 Temperature 99.8 F H Pulse Rate 112 H 113 H Pulse Rate [ From Monitor] Respiratory 21 38 H Rate Blood Pressure 100/56 123/72 O2 Sat by Pulse 98 98 Oximetry General appearance: Present: mild distress, cachectic - EENT Eyes: PERRL, EOM intact ENT: hearing intact, clear oral mucosa Ears: bilateral: normal - Neck Neck: supple, normal ROM - Respiratory Respiratory: bilateral: other (on the vent.) - Breasts Breasts: deferred - Cardiovascular Rhythm: regular Heart Sounds: Present: S1 & S2. Absent: gallop, rub Extremities: pulses intact, No edema, normal color, Full ROM - Gastrointestinal General gastrointestinal: Present: soft, non-tender, non-distended, normal bowel sounds Rectal Exam: deferred - Genitourinary Male genitourinary: deferred - Integumentary Integumentary: clear, warm, dry - Labs CBC & Chem 7: 11/03/18 05:10 11/02/18 07:54 Labs: Abnormal lab results 11/02/18 11/03/18 11/03/18 Range/Units 23:32 04:34 05:10 RBC 2.87 L (3.65-5.03) M/mm3 Hgb 9.4 L (11.8-15.2) gm/dl Hct 28.5 L (35.5-45.6) % MCV 99 H (84-94) fl MCH 33 H (28-32) pg RDW 16.7 H (13.2-15.2) % Seg Neuts % (Manual) 91.0 H (40.0-70.0) % Lymphocytes % (Manual) 4.0 L (13.4-35.0) % Lymphocytes # (Manual) 0.3 L (1.2-5.4) K/mm3 POC ABG pCO2 33.2 L (35-45) POC ABG pO2 76 L (80-105) POC Glucose 177 H (70-105) 11/03/18 11/03/18 Range/Units 06:04 12:26 RBC (3.65-5.03) M/mm3 Hgb (11.8-15.2) gm/dl Hct (35.5-45.6) % MCV (84-94) fl MCH (28-32) pg RDW (13.2-15.2) % Seg Neuts % (Manual) (40.0-70.0) % Lymphocytes % (Manual) (13.4-35.0) % Lymphocytes # (Manual) (1.2-5.4) K/mm3 POC ABG pCO2 (35-45) POC ABG pO2 (80-105) POC Glucose 168 H 196 H (70-105) Medications & Allergies - Medications Allergies/Adverse Reactions: Allergies No Known Allergies Allergy (Verified 01/18/18 20:10) Home Medications: Home Medications Medication Instructions Recorded Confirmed Last Taken Type Acetaminophen [Acetaminophen TAB] 650 mg PO Q4H PRN 03/12/18 10/31/18 Unknown History Calcium Acetate [Phoslo] 667 mg PO TID 03/12/18 10/31/18 05/13/18 17:00 History Carvedilol [Coreg] 6.25 mg PO BID 03/12/18 10/31/18 05/13/18 09:00 History Ergocalciferol 50,000 unit PO QWEEK 03/12/18 10/31/18 05/11/18 09:00 History Apixaban [Eliquis] 2.5 mg PO BID tablet 08/21/18 10/31/18 Unknown Rx Megestrol [Megace] 400 mg PO QDAY 10/31/18 10/31/18 Unknown History Mirtazapine [Remeron] 15 mg PO QHS 10/31/18 10/31/18 Unknown History Elaine-José Rx Tablet 1 tab PO QDAY 10/31/18 10/31/18 Unknown History Sodium Bicarbonate 650 mg PO BID 10/31/18 10/31/18 Unknown History traMADol [Ultram 50 MG tab] 25 mg PO Q12H PRN 10/31/18 10/31/18 Unknown History Active Medications: Generic Name Dose Route Start Last Admin Trade Name Freq PRN Reason Stop Dose Admin Acetaminophen 650 mg 11/02/18 09:25 Tylenol FEEDTUBE Q6H PRN Fever >101 Lipase/Protease/Amylase 1 each 11/01/18 10:[address] 10,500 Unit FEEDTUBE PRN PRN For Clogged Feeding Tube Famotidine 20 mg 11/01/18 10:00 11/03/18 14:42 Pepcid PO 20 mg DAILY KIRSTEN Administration Heparin Sodium (Porcine) 5,000 unit 10/29/18 22:00 11/03/18 14:42 Heparin SUB-Q 5,000 unit Q8HR KIRSTEN Administration Norepinephrine 4 mg in 250 mls @ 7.5 mls/hr 10/30/18 01:00 11/03/18 16:05 Levophed Drip 4 Mg/Ns 250 Ml IV 8 mcg/min TITR KIRSTEN 30 mls/hr Titration Protocol 2 MCG/MIN Sodium Chloride 100 mls @ 999 mls/hr 11/01/18 09:22 Nacl 0.9% IV ALEJO PRN Hypotension Cefepime HCl 1 gm in 100 mls @ 200 mls/hr 11/02/18 18:00 11/02/18 18:35 Maxipime/Ns 1 Gm/100 Ml IV 200 mls/hr QPM KIRSTEN Administration Protocol Insulin Human Lispro 0 unit 10/30/18 10:00 11/03/18 14:42 Humalog SUB-Q 4 unit Q6HR KIRSTEN Administration Protocol Simple Syrup 15 ml 11/01/18 10:04 Simple Syrup FEEDTUBE PRN PRN Hypoglycemia Simple Syrup 30 ml 11/01/18 10:04 Simple Syrup FEEDTUBE PRN PRN Hypoglycemia Sodium Bicarbonate 325 mg 11/01/18 10:04 Sodium Bicarbonate FEEDTUBE PRN PRN For Clogged Feeding Tube
[2018-11-03] MEDS: MAXIPIME/NS 1 GM/100 ML 1 GM/100 ML BAG IV SCH (17:54)
--- NOTE | 2018-11-03 18:38 | Progress Note ---
Assessment and Plan -s/p PEA arrest -Severe sepsis with septic shock -Fevers -Acute hypoxic respiratory failure on MVS -Acute encephalopathy( toxic, metabolic) -Severe protein calorie malnutrition -Hyperkalemia -ESRD on HD -Hyperosmolar hyperglycemic state -Hypotension, multifactorial, ?sepsis, dehydration -Hypernatremia -PVD s/p right BKA -Prostate cancer s/p suprapubic catheter -Continue with MVS -Lung protective strategies -VAP bundle addressed. -With new fevers, re-culture -Supplemental oxygen, wean for O2 sats>90% -Aspiration precautions, HOB >40 -Mobility as tolerated by hemodynamics -Daily SBTs as tolerated -VTE prophylaxis( heparin) -Stress ulcer prophylaxis( Famotidine) -Tube feedings -Glycemic control, target blood glucose of 140-180mg/dL -Free water flushes -Wound care by wound care team -Supportive HD -Wean vasopressor support for MAP>65 -ABG and CXR in am Sputum positive for MRSA, on Vancomycin, ID following Pharmacy following for pharmacokinteics/dosing CONDITION: CRITICAL PROGNOSIS: GUARDED I have spent 35 minutes in the direct care of this critically ill patient, excluding procedure time. Critical care time was spent on this patient and during his initial evaluation, multiple re-evaluations, ordering and interpretation of labs and imaging, medications, discussion with the ICU care team. There is a high probability of clinically significant, sudden, or life- threatening deterioration that has required multiple evaluations and direct attention, intervention, and management. Subjective Date of service: 11/03/18 Principal diagnosis: sepsis, acute resp, failure. Interval history: Patient is seen today for: Acute hypoxemic respiratory failure on MVS; Severe sepsis with septic shock; acute encephaloapthy; Seen and examined at bedside; 24hour events reviewed; nursing and respiratory care staff consulted; Remains unresponsive, on mechanical ventilatory support, no dys-synchrony, critically ill Objective - Exam Narrative Exam: Physical Exam: Constitutional: unresponsive. on mechnaical ventilatory support Head, Ears, Nose: Normocephalic, atraumatic. External ears, nose normal. Eyes: Conjunctivae/corneas clear. No icterus. No ptosis. Neck: trach + Cardiovascular: S1, S2 normal. Respiratory: Good air entry, clear to auscultation bilaterally GI: Soft, bowel sounds +. PEG + Suprapubic catheter + Musculoskeletal: Right AKA, left TMA stumps healed. Right gluteal region with eschar. Left femoral trialysis cath +. Edema + Skin: No rash or abscess Hem/Lymphatic: No palpable cervical or supraclavicular nodes. No lymphangitis Psych: no agitation Neurological: unresponsive, intubated, on vent. Vital Signs - 12hr 11/03/18 11/03/18 11/03/18 06:45 07:00 07:15 Temperature Pulse Rate 104 H 101 H 103 H Pulse Rate [ From Monitor] Respiratory 23 24 32 H Rate Blood Pressure 107/58 119/69 87/51 O2 Sat by Pulse 98 98 98 Oximetry 11/03/18 11/03/18 11/03/18 07:30 07:33 07:45 Temperature Pulse Rate 105 H 107 H 105 H Pulse Rate [ From Monitor] Respiratory 32 H 33 H Rate Blood Pressure 116/74 116/74 105/68 O2 Sat by Pulse 98 99 99 Oximetry 11/03/18 11/03/18 11/03/18 08:00 08:15 08:30 Temperature Pulse Rate 107 H 107 H 108 H Pulse Rate [ 105 H From Monitor] Respiratory 35 H 33 H 36 H Rate Blood Pressure 140/78 127/74 138/80 O2 Sat by Pulse 99 99 99 Oximetry 11/03/18 11/03/18 11/03/18 08:32 08:45 09:00 Temperature 99.3 F Pulse Rate 107 H 108 H Pulse Rate [ From Monitor] Respiratory 35 H 36 H Rate Blood Pressure 121/76 114/75 O2 Sat by Pulse 98 99 Oximetry 11/03/18 11/03/18 11/03/18 09:15 09:30 09:45 Temperature Pulse Rate 106 H 108 H 111 H Pulse Rate [ From Monitor] Respiratory 36 H 35 H 35 H Rate Blood Pressure 128/79 131/72 133/72 O2 Sat by Pulse 99 99 100 Oximetry 11/03/18 11/03/18 11/03/18 10:00 10:15 10:30 Temperature Pulse Rate 110 H 109 H 106 H Pulse Rate [ From Monitor] Respiratory 37 H 36 H 34 H Rate Blood Pressure 87/52 78/49 89/58 O2 Sat by Pulse 100 99 99 Oximetry 11/03/18 11/03/18 11/03/18 10:45 11:00 11:15 Temperature Pulse Rate 105 H 105 H 105 H Pulse Rate [ From Monitor] Respiratory 32 H 36 H 36 H Rate Blood Pressure 107/62 112/72 97/61 O2 Sat by Pulse 99 99 99 Oximetry 11/03/18 11/03/18 11/03/18 11:30 11:45 12:00 Temperature 99.1 F Pulse Rate 104 H 103 H 106 H Pulse Rate [ From Monitor] Respiratory 34 H 25 H 34 H Rate Blood Pressure 125/69 92/58 125/77 O2 Sat by Pulse 100 98 99 Oximetry 11/03/18 11/03/18 11/03/18 12:15 12:30 12:45 Temperature Pulse Rate 112 H 107 H 107 H Pulse Rate [ From Monitor] Respiratory 36 H 36 H 34 H Rate Blood Pressure 163/90 119/74 118/72 O2 Sat by Pulse 100 99 99 Oximetry 11/03/18 11/03/18 11/03/18 13:00 13:15 13:30 Temperature Pulse Rate 106 H 105 H 105 H Pulse Rate [ From Monitor] Respiratory 32 H 32 H 34 H Rate Blood Pressure 130/72 138/69 111/70 O2 Sat by Pulse 99 99 98 Oximetry 11/03/18 11/03/18 11/03/18 13:45 14:00 14:15 Temperature Pulse Rate 107 H 106 H 105 H Pulse Rate [ From Monitor] Respiratory 37 H 25 H 33 H Rate Blood Pressure 111/70 92/52 102/62 O2 Sat by Pulse 98 98 98 Oximetry 11/03/18 11/03/18 11/03/18 14:30 14:45 15:00 Temperature Pulse Rate 110 H 107 H 107 H Pulse Rate [ From Monitor] Respiratory 35 H 32 H 32 H Rate Blood Pressure 150/78 112/67 111/62 O2 Sat by Pulse 99 99 99 Oximetry 11/03/18 11/03/18 11/03/18 15:15 15:30 15:45 Temperature Pulse Rate 108 H 112 H 113 H Pulse Rate [ From Monitor] Respiratory 33 H 35 H 32 H Rate Blood Pressure 119/63 106/61 85/46 O2 Sat by Pulse 99 99 98 Oximetry 11/03/18 11/03/18 11/03/18 16:00 16:15 16:30 Temperature Pulse Rate 112 H 112 H 113 H Pulse Rate [ 105 H From Monitor] Respiratory 33 H 21 38 H Rate Blood Pressure 95/48 100/56 123/72 O2 Sat by Pulse 98 98 98 Oximetry 11/03/18 11/03/18 11/03/18 16:45 16:57 17:00 Temperature 99.8 F H Pulse Rate 117 H 112 H Pulse Rate [ From Monitor] Respiratory 33 H 37 H Rate Blood Pressure 149/74 135/74 O2 Sat by Pulse 99 99 Oximetry 11/03/18 11/03/18 11/03/18 17:15 17:30 17:45 Temperature Pulse Rate 109 H 114 H 110 H Pulse Rate [ From Monitor] Respiratory 34 H 36 H 33 H Rate Blood Pressure 126/68 158/85 115/63 O2 Sat by Pulse 99 99 99 Oximetry 11/03/18 11/03/18 11/03/18 18:00 18:15 18:30 Temperature Pulse Rate 108 H 109 H 112 H Pulse Rate [ From Monitor] Respiratory 31 H 36 H 32 H Rate Blood Pressure 118/63 117/71 112/66 O2 Sat by Pulse 98 98 98 Oximetry CBC and BMP: 11/16/18 05:45 11/16/18 05:45 ABG, PT/INR, D-dimer: ABG POC ABG pH 7.445 (7.35-7.45) 11/03/18 04:34 POC ABG pCO2 33.2 (35-45) L 11/03/18 04:34 POC ABG pO2 76 (80-105) L 11/03/18 04:34 POC ABG HCO3 22.8 (22-26 mml/L) 11/03/18 04:34 POC ABG Total CO2 24 (23-27mmol/L) 11/03/18 04:34 POC ABG O2 Sat 96 11/03/18 04:34 Abnormal lab findings: Abnormal Labs 10/29/18 10/29/18 10/29/18 17:13 17:13 17:13 RBC 3.62 L Hgb Hct MCV 102 H MCH 34 H RDW 19.6 H Knott % (Auto) 7.8 H Seg Neutrophils % 71.2 H Seg Neuts % (Manual) Lymphocytes % (Manual) Lymphocytes # (Manual) POC ABG pH POC ABG pCO2 POC ABG pO2 Sodium 164 H* Potassium 6.2 H* Chloride 127.5 H Carbon Dioxide BUN 178 H Creatinine 4.2 H Glucose 131 H POC Glucose Calcium 10.7 H C-Reactive Protein Total Protein 9.5 H Albumin 2.6 L TSH 5.310 H Urine pH Urine WBC (Auto) 10/29/18 10/30/18 10/30/18 23:57 00:06 04:35 RBC Hgb Hct MCV MCH RDW Knott % (Auto) Seg Neutrophils % Seg Neuts % (Manual) Lymphocytes % (Manual) Lymphocytes # (Manual) POC ABG pH 7.488 H POC ABG pCO2 32.1 L 34.9 L POC ABG pO2 144 H Sodium Potassium Chloride Carbon Dioxide BUN Creatinine Glucose POC Glucose 131 H Calcium C-Reactive Protein Total Protein Albumin TSH Urine pH Urine WBC (Auto) 10/30/18 10/30/18 10/30/18 05:13 08:54 08:54 RBC 3.56 L Hgb 11.7 L Hct MCV 102 H MCH 33 H RDW 19.2 H Knott % (Auto) Seg Neutrophils % Seg Neuts % (Manual) Lymphocytes % (Manual) Lymphocytes # (Manual) POC ABG pH POC ABG pCO2 POC ABG pO2 Sodium Potassium Chloride Carbon Dioxide BUN Creatinine Glucose POC Glucose 316 H Calcium C-Reactive Protein 5.20 H Total Protein Albumin 2.2 L TSH Urine pH Urine WBC (Auto) 10/30/18 10/30/18 10/30/18 08:59 12:03 18:30 RBC Hgb Hct MCV MCH RDW Knott % (Auto) Seg Neutrophils % Seg Neuts % (Manual) Lymphocytes % (Manual) Lymphocytes # (Manual) POC ABG pH POC ABG pCO2 POC ABG pO2 Sodium 146 H D Potassium Chloride Carbon Dioxide BUN 86 H Creatinine 2.7 H Glucose 262 H POC Glucose 232 H 57 L Calcium C-Reactive Protein Total Protein Albumin TSH Urine pH Urine WBC (Auto) 10/30/18 10/30/18 10/30/18 18:39 19:07 19:42 RBC Hgb Hct MCV MCH RDW Knott % (Auto) Seg Neutrophils % Seg Neuts % (Manual) Lymphocytes % (Manual) Lymphocytes # (Manual) POC ABG pH POC ABG pCO2 POC ABG pO2 Sodium Potassium Chloride Carbon Dioxide BUN Creatinine Glucose POC Glucose < 40 L 51 L Calcium C-Reactive Protein Total Protein Albumin TSH Urine pH 8.0 H Urine WBC (Auto) > 182.0 H 10/30/18 10/30/18 10/30/18 19:51 23:13 23:20 RBC Hgb Hct MCV MCH RDW Knott % (Auto) Seg Neutrophils % Seg Neuts % (Manual) Lymphocytes % (Manual) Lymphocytes # (Manual) POC ABG pH POC ABG pCO2 POC ABG pO2 Sodium Potassium Chloride 108.5 H Carbon Dioxide 21 L BUN 96 H Creatinine 3.0 H Glucose 865 H* 150 H POC Glucose 152 H Calcium C-Reactive Protein Total Protein Albumin TSH Urine pH Urine WBC (Auto) 10/30/18 10/31/18 10/31/18 23:40 04:43 04:43 RBC Hgb Hct MCV 100 H MCH 33 H RDW 18.1 H Knott % (Auto) Seg Neutrophils % Seg Neuts % (Manual) Lymphocytes % (Manual) 4.0 L Lymphocytes # (Manual) 0.3 L POC ABG pH POC ABG pCO2 POC ABG pO2 Sodium Potassium Chloride Carbon Dioxide 19 L BUN 98 H Creatinine 3.2 H Glucose 184 H POC Glucose 145 H Calcium C-Reactive Protein Total Protein Albumin TSH Urine pH Urine WBC (Auto) 10/31/18 10/31/18 10/31/18 05:44 11:44 13:19 RBC Hgb Hct MCV MCH RDW Knott % (Auto) Seg Neutrophils % Seg Neuts % (Manual) Lymphocytes % (Manual) Lymphocytes # (Manual) POC ABG pH POC ABG pCO2 POC ABG pO2 64 L Sodium Potassium Chloride Carbon Dioxide BUN Creatinine Glucose POC Glucose 142 H 196 H Calcium C-Reactive Protein Total Protein Albumin TSH Urine pH Urine WBC (Auto) 10/31/18 11/01/18 11/01/18 17:36 04:07 04:07 RBC 3.40 L Hgb 11.2 L Hct 33.6 L MCV 99 H MCH 33 H RDW 17.5 H Knott % (Auto) Seg Neutrophils % Seg Neuts % (Manual) 80.0 H Lymphocytes % (Manual) 4.0 L Lymphocytes # (Manual) 0.3 L POC ABG pH POC ABG pCO2 POC ABG pO2 Sodium Potassium Chloride Carbon Dioxide 19 L BUN 108 H Creatinine 3.9 H Glucose 138 H POC Glucose 174 H Calcium 7.9 L C-Reactive Protein Total Protein Albumin TSH Urine pH Urine WBC (Auto) 11/01/18 11/01/18 11/01/18 05:24 05:36 13:09 RBC Hgb Hct MCV MCH RDW Knott % (Auto) Seg Neutrophils % Seg Neuts % (Manual) Lymphocytes % (Manual) Lymphocytes # (Manual) POC ABG pH POC ABG pCO2 POC ABG pO2 65 L Sodium Potassium Chloride Carbon Dioxide BUN Creatinine Glucose POC Glucose 153 H 249 H Calcium C-Reactive Protein Total Protein Albumin TSH Urine pH Urine WBC (Auto) 11/01/18 11/02/18 11/02/18 18:11 05:04 07:17 RBC 3.08 L Hgb 10.1 L Hct 30.1 L MCV 98 H MCH 33 H RDW 16.7 H Knott % (Auto) Seg Neutrophils % Seg Neuts % (Manual) 92.0 H Lymphocytes % (Manual) 3.0 L Lymphocytes # (Manual) 0.2 L POC ABG pH POC ABG pCO2 POC ABG pO2 Sodium Potassium Chloride Carbon Dioxide BUN Creatinine Glucose POC Glucose 175 H 118 H Calcium C-Reactive Protein Total Protein Albumin TSH Urine pH Urine WBC (Auto) 11/02/18 11/02/18 11/02/18 07:54 09:32 12:28 RBC Hgb Hct MCV MCH RDW Knott % (Auto) Seg Neutrophils % Seg Neuts % (Manual) Lymphocytes % (Manual) Lymphocytes # (Manual) POC ABG pH 7.514 H POC ABG pCO2 POC ABG pO2 70 L Sodium 135 L Potassium Chloride Carbon Dioxide BUN 48 H Creatinine 2.2 H Glucose 170 H POC Glucose 242 H Calcium 7.4 L C-Reactive Protein Total Protein Albumin TSH Urine pH Urine WBC (Auto) 11/02/18 11/03/18 11/03/18 23:32 04:34 05:10 RBC 2.87 L Hgb 9.4 L Hct 28.5 L MCV 99 H MCH 33 H RDW 16.7 H [place] % (Auto) Seg Neutrophils % Seg Neuts % (Manual) 91.0 H Lymphocytes % (Manual) 4.0 L Lymphocytes # (Manual) 0.3 L POC ABG pH POC ABG pCO2 33.2 L POC ABG pO2 76 L Sodium Potassium Chloride Carbon Dioxide BUN Creatinine Glucose POC Glucose 177 H Calcium C-Reactive Protein Total Protein Albumin TSH Urine pH Urine WBC (Auto) 11/03/18 11/03/18 06:04 12:26 RBC Hgb Hct MCV MCH RDW [place] % (Auto) Seg Neutrophils % Seg Neuts % (Manual) Lymphocytes % (Manual) Lymphocytes # (Manual) POC ABG pH POC ABG pCO2 POC ABG pO2 Sodium Potassium Chloride Carbon Dioxide BUN Creatinine Glucose POC Glucose 168 H 196 H Calcium C-Reactive Protein Total Protein Albumin TSH Urine pH Urine WBC (Auto)
[2018-11-04] MEDS: LEVOPHED DRIP 4 MG/NS 250 ML 4 MG/250 ML BAG IV SCH ×3 (05:10→22:16)
[2018-11-04] MEDS: HEPARIN SUB-Q SCH ×3 (05:11→22:15)
[2018-11-04 05:41] LABS: Hematocrit 27.3 % (35.5-45.6); Hemoglobin 9.1 gm/dl (11.8-15.2); Mean Corpuscular HGB Conc 33 % (32-34); Mean Corpuscular Volume 99 fl (84-94); Platelet Count 147 K/mm3 (140-440); Red Blood Count 2.74 M/mm3 (3.65-5.03); Red Cell Distribution Width 16.5 % (13.2-15.2)
[2018-11-04 05:52] LABS: Calcium 7.6 mg/dL (8.4-10.2)
[2018-11-04] MEDS: HumaLOG SUB-Q SCH ×3 (06:27→17:17)
--- NOTE | 2018-11-04 10:11 | Progress Note ---
Assessment and Plan 1. ESRD: Patient was last dialyzed 3 days ago. Patient remain hypotensive on pressors. No acute indication for HD today. Monitor for [employer] needs. 2. FEN: Hyperkalemia, improved. Hypernatremia, improved. 3. Respiratory failure: On vent. 4. Shock: On Levophed. 5. Urosepsis. 6. Anemia: One dose of Epogen today. Subjective Date of service: 11/04/18 Principal diagnosis: sepsis, acute resp, failure. Interval history: Patient was seen and examined at the bedside. Objective - Vital Signs Vital signs: Vital Signs - 12hr 11/03/18 11/03/18 11/03/18 22:15 22:30 22:45 Temperature Pulse Rate 104 H 105 H 105 H Pulse Rate [ From Monitor] Respiratory 31 H 26 H 33 H Rate Blood Pressure 116/66 110/61 125/75 O2 Sat by Pulse 100 100 99 Oximetry 11/03/18 11/03/18 11/03/18 22:46 23:00 23:15 Temperature Pulse Rate 103 H 106 H 104 H Pulse Rate [ From Monitor] Respiratory 31 H 33 H 33 H Rate Blood Pressure 125/75 136/73 122/73 O2 Sat by Pulse 99 100 100 Oximetry 11/03/18 11/03/18 11/03/18 23:30 23:45 23:47 Temperature Pulse Rate 104 H 102 H 105 H Pulse Rate [ From Monitor] Respiratory 32 H 28 H Rate Blood Pressure 138/74 105/59 122/73 O2 Sat by Pulse 100 100 100 Oximetry 11/04/18 11/04/18 11/04/18 00:00 00:15 00:30 Temperature 98.8 F Pulse Rate 104 H 105 H 103 H Pulse Rate [ 110 H From Monitor] Respiratory 21 35 H 29 H Rate Blood Pressure 108/56 109/61 109/62 O2 Sat by Pulse 100 100 100 Oximetry 11/04/18 11/04/18 11/04/18 00:45 01:00 01:15 Temperature Pulse Rate 103 H 101 H 104 H Pulse Rate [ From Monitor] Respiratory 29 H 33 H 33 H Rate Blood Pressure 106/61 106/61 119/67 O2 Sat by Pulse 100 100 100 Oximetry 11/04/18 11/04/18 11/04/18 01:30 01:45 02:00 Temperature Pulse Rate 102 H 102 H 101 H Pulse Rate [ 101 H From Monitor] Respiratory 32 H 34 H 34 H Rate Blood Pressure 117/66 118/68 111/67 O2 Sat by Pulse 100 99 100 Oximetry 11/04/18 11/04/18 11/04/18 02:15 02:30 02:45 Temperature Pulse Rate 102 H 100 H 99 H Pulse Rate [ From Monitor] Respiratory 34 H 27 H 28 H Rate Blood Pressure 122/70 114/68 109/65 O2 Sat by Pulse 100 100 100 Oximetry 11/04/18 11/04/18 11/04/18 03:00 03:15 03:30 Temperature Pulse Rate 99 H 99 H 99 H Pulse Rate [ From Monitor] Respiratory 22 32 H 33 H Rate Blood Pressure 117/66 126/72 133/71 O2 Sat by Pulse 100 100 100 Oximetry 11/04/18 11/04/18 11/04/18 03:44 03:45 04:00 Temperature 100.0 F H Pulse Rate 99 H 99 H 97 H Pulse Rate [ 97 H From Monitor] Respiratory 33 H 30 H Rate Blood Pressure 126/74 126/74 126/74 O2 Sat by Pulse 100 100 100 Oximetry 11/04/18 11/04/18 11/04/18 04:15 04:30 04:45 Temperature Pulse Rate 99 H 97 H 99 H Pulse Rate [ From Monitor] Respiratory 33 H 26 H 32 H Rate Blood Pressure 125/74 119/67 114/67 O2 Sat by Pulse 100 99 99 Oximetry 11/04/18 11/04/18 11/04/18 05:00 05:15 08:00 Temperature 98.8 F Pulse Rate 97 H 99 H Pulse Rate [ From Monitor] Respiratory 28 H 31 H Rate Blood Pressure 119/67 96/54 O2 Sat by Pulse 99 100 Oximetry - General Appearance General appearance: well-developed, appears stated age, cachectic, intubated EENT: ATNC Neck: supple Respiratory: Present: Clear to Ascultation Cardiology: regular, S1S2, no murmurs Gastrointestinal: normoactive bowel sounds, no tenderness, distended, other (suprapubic catheter) Integumentary: ulcer (left LE) Neurologic: obtunded Musculoskeletal: other (right AKA, clotted right arm AVF, left groin hemodialysis catheter) - Lab 11/04/18 05:05 11/04/18 05:05 Most recent lab results Calcium 7.6 mg/dL (8.4-10.2) L 11/04/18 05:05 Phosphorus 3.70 mg/dL (2.5-4.5) 10/31/18 04:43 Medications & Allergies - Medications Allergies/Adverse Reactions: Allergies No Known Allergies Allergy (Verified 01/18/18 20:10) Home Medications: Home Medications Medication Instructions Recorded Confirmed Last Taken Type Acetaminophen [Acetaminophen TAB] 650 mg PO Q4H PRN 03/12/18 10/31/18 Unknown History Calcium Acetate [Phoslo] 667 mg PO TID 03/12/18 10/31/18 05/13/18 17:00 History Carvedilol [Coreg] 6.25 mg PO BID 03/12/18 10/31/18 05/13/18 09:00 History Ergocalciferol 50,000 unit PO QWEEK 03/12/18 10/31/18 05/11/18 09:00 History Apixaban [Eliquis] 2.5 mg PO BID tablet 08/21/18 10/31/18 Unknown Rx Megestrol [Megace] 400 mg PO QDAY 10/31/18 10/31/18 Unknown History Mirtazapine [Remeron] 15 mg PO QHS 10/31/18 10/31/18 Unknown History Elaine-José Rx Tablet 1 tab PO QDAY 10/31/18 10/31/18 Unknown History Sodium Bicarbonate 650 mg PO BID 10/31/18 10/31/18 Unknown History traMADol [Ultram 50 MG tab] 25 mg PO Q12H PRN 10/31/18 10/31/18 Unknown History Active Medications: Generic Name Dose Route Start Last Admin Trade Name Freq PRN Reason Stop Dose Admin Acetaminophen 650 mg 11/02/18 09:25 Tylenol FEEDTUBE Q6H PRN Fever >101 Lipase/Protease/Amylase 1 each 11/01/18 10:04 Pancreyobani Palomo 10,500 Unit FEEDTUBE PRN PRN For Clogged Feeding Tube Famotidine 20 mg 11/01/18 10:00 11/03/18 14:42 Pepcid PO 20 mg DAILY KIRSTEN Administration Heparin Sodium (Porcine) 5,000 unit 10/29/18 22:00 11/04/18 05:11 Heparin SUB-Q 5,000 unit Q8HR KIRSTEN Administration Norepinephrine 4 mg in 250 mls @ 7.5 mls/hr 10/30/18 01:00 11/04/18 05:10 Levophed Drip 4 Mg/Ns 250 Ml IV 8 mcg/min TITR KIRSTEN 30 mls/hr Administration Protocol 2 MCG/MIN Sodium Chloride 100 mls @ 999 mls/hr 11/01/18 09:22 Nacl 0.9% IV ALEJO PRN Hypotension Cefepime HCl 1 gm in 100 mls @ 200 mls/hr 11/02/18 18:00 11/03/18 17:54 Maxipime/Ns 1 Gm/100 Ml IV 200 mls/hr QPM KIRSTEN Administration Protocol Insulin Human Lispro 0 unit 10/30/18 10:00 11/04/18 06:27 Humalog SUB-Q 3 unit Q6HR KIRSTEN Administration Protocol Simple Syrup 15 ml 11/01/18 10:04 Simple Syrup FEEDTUBE PRN PRN Hypoglycemia Simple Syrup 30 ml 11/01/18 10:04 Simple Syrup FEEDTUBE PRN PRN Hypoglycemia Sodium Bicarbonate 325 mg 11/01/18 10:04 Sodium Bicarbonate FEEDTUBE PRN PRN For Clogged Feeding Tube
[2018-11-04] MEDS: PEPCID PO SCH (10:13)
--- NOTE | 2018-11-04 11:03 | Progress Note ---
Assessment and Plan - Patient Problems (1) Altered mental status Current Visit: Yes Status: Acute Qualifiers: Altered mental status type: unspecified Qualified Code(s): R41.82 - Altered mental status, unspecified Plan to address problem: most likely due to sinus infection. (2) Hyperkalemia Current Visit: Yes Status: Acute Plan to address problem: Treated, and continue to correct with HD. corrected. (3) Hypernatremia Current Visit: Yes Status: Acute Plan to address problem: correct with HD. As above when feasible with the Renal service. (4) Uremia Current Visit: Yes Status: Acute Plan to address problem: treat underlying cause. (5) Acute encephalopathy Current Visit: Yes Status: Chronic Plan to address problem: supportive care. (6) ESRD needing dialysis Current Visit: Yes Status: Chronic Plan to address problem: Continue on HD. as above once feasible. (7) Sepsis Current Visit: Yes Status: Acute Plan to address problem: treat the etiology.Most likely due to sinus infection. Subjective Date of service: 11/04/18 Principal diagnosis: sepsis, acute resp, failure. Interval history: Patient seen/examined,in the ICU. I have spoken to the daughter, and his sister today, regarding plan of care, and prognosis. I have rec less aggressive path, including hospice. They will think about it ,and let me know. Mean while, will continue current management. His prognosis is quite poor at this time. Patient seen/examined, resting in bed, labs reviewed.Still on the vent.If unable to be weaned off the vent, on timely /expected time, will push for LTAC eval/placement at [email or web address] senior facilities manager to start preparing for this possibility. Patient seen/examined, resting in bed, still not wean able yet.He had HD today. patient seen/examined, resting in bed. labs/records/notes reviewed, including ID consult notes. Cxr with PNA., 24hr Tm 102. Patient seen/examined, resting in bed, NR, BP low, and Levo increased back up ,to maintain any appreciable reading. Labs reviewed. I have discussed/updated the daughter Ramón today, discussed code status again, and prognosis,as well as long time plan/disposition.She has signed a Do NOT Resuscitate, and the other family member suppose to sign hers today, or tomorrow. I have recommended, and she is in agreement to the LTAC placement at [facility], where he can also get trached, if, and when feasible. I want the case assistant to act on this on timely manner.MRSA positive in the sputum.ID on the case. Patient seen/examined, resting in bed, labs reviewed. Patient is now an AND stat us.Plan for LTAC refferal by the case assistant, I have spoken to the family about [facility], and she was in agreement. Objective - Constitutional Vitals: Vital Signs - 12hr 11/03/18 11/03/18 11/03/18 23:00 23:15 23:30 Temperature Pulse Rate 106 H 104 H 104 H Pulse Rate [ From Monitor] Respiratory 33 H 33 H 32 H Rate Blood Pressure 136/73 122/73 138/74 O2 Sat by Pulse 100 100 100 Oximetry 11/03/18 11/03/18 11/04/18 23:45 23:47 00:00 Temperature 98.8 F Pulse Rate 102 H 105 H 104 H Pulse Rate [ 110 H From Monitor] Respiratory 28 H 21 Rate Blood Pressure 105/59 122/73 108/56 O2 Sat by Pulse 100 100 100 Oximetry 11/04/18 11/04/18 11/04/18 00:15 00:30 00:45 Temperature Pulse Rate 105 H 103 H 103 H Pulse Rate [ From Monitor] Respiratory 35 H 29 H 29 H Rate Blood Pressure 109/61 109/62 106/61 O2 Sat by Pulse 100 100 100 Oximetry 11/04/18 11/04/18 11/04/18 01:00 01:15 01:30 Temperature Pulse Rate 101 H 104 H 102 H Pulse Rate [ From Monitor] Respiratory 33 H 33 H 32 H Rate Blood Pressure 106/61 119/67 117/66 O2 Sat by Pulse 100 100 100 Oximetry 11/04/18 11/04/18 11/04/18 01:45 02:00 02:15 Temperature Pulse Rate 102 H 101 H 102 H Pulse Rate [ 101 H From Monitor] Respiratory 34 H 34 H 34 H Rate Blood Pressure 118/68 111/67 122/70 O2 Sat by Pulse 99 100 100 Oximetry 11/04/18 11/04/18 11/04/18 02:30 02:45 03:00 Temperature Pulse Rate 100 H 99 H 99 H Pulse Rate [ From Monitor] Respiratory 27 H 28 H 22 Rate Blood Pressure 114/68 109/65 117/66 O2 Sat by Pulse 100 100 100 Oximetry 11/04/18 11/04/18 11/04/18 03:15 03:30 03:44 Temperature Pulse Rate 99 H 99 H 99 H Pulse Rate [ From Monitor] Respiratory 32 H 33 H Rate Blood Pressure 126/72 133/71 126/74 O2 Sat by Pulse 100 100 100 Oximetry 11/04/18 11/04/18 11/04/18 03:45 04:00 04:15 Temperature 100.0 F H Pulse Rate 99 H 97 H 99 H Pulse Rate [ 97 H From Monitor] Respiratory 33 H 30 H 33 H Rate Blood Pressure 126/74 126/74 125/74 O2 Sat by Pulse 100 100 100 Oximetry 11/04/18 11/04/18 11/04/18 04:30 04:45 05:00 Temperature Pulse Rate 97 H 99 H 97 H Pulse Rate [ From Monitor] Respiratory 26 H 32 H 28 H Rate Blood Pressure 119/67 114/67 119/67 O2 Sat by Pulse 99 99 99 Oximetry 11/04/18 11/04/18 05:15 08:00 Temperature 98.8 F Pulse Rate 99 H Pulse Rate [ From Monitor] Respiratory 31 H Rate Blood Pressure 96/54 O2 Sat by Pulse 100 Oximetry General appearance: Present: mild distress, cachectic - EENT Eyes: PERRL, EOM intact ENT: hearing intact, clear oral mucosa Ears: bilateral: normal - Neck Neck: supple, normal ROM - Respiratory Respiratory effort: normal Respiratory: bilateral: CTA - Breasts Breasts: deferred - Cardiovascular Rhythm: regular Heart Sounds: Present: S1 & S2. Absent: gallop, rub Extremities: pulses intact, No edema, normal color, Full ROM - Gastrointestinal General gastrointestinal: Present: soft, non-tender, non-distended, normal bowel sounds Rectal Exam: deferred - Genitourinary Male genitourinary: deferred - Integumentary Integumentary: clear, warm, dry - Labs CBC & Chem 7: 11/04/18 05:05 11/04/18 05:05 Labs: Abnormal lab results 11/03/18 11/03/18 11/03/18 Range/Units 12:26 18:43 23:34 RBC (3.65-5.03) M/mm3 Hgb (11.8-15.2) gm/dl Hct (35.5-45.6) % MCV (84-94) fl MCH (28-32) pg RDW (13.2-15.2) % POC ABG pCO2 (35-45) POC ABG pO2 (80-105) BUN (9-20) mg/dL Creatinine (0.8-1.5) mg/dL Glucose (75-100) mg/dL POC Glucose 196 H 153 H 213 H (70-105) Calcium (8.4-10.2) mg/dL 11/04/18 11/04/18 11/04/18 Range/Units 03:50 05:05 05:05 RBC 2.74 L (3.65-5.03) M/mm3 Hgb 9.1 L (11.8-15.2) gm/dl Hct 27.3 L (35.5-45.6) % MCV 99 H (84-94) fl MCH 33 H (28-32) pg RDW 16.5 H (13.2-15.2) % POC ABG pCO2 31.7 L (35-45) POC ABG pO2 74 L (80-105) BUN 84 H (9-20) mg/dL Creatinine 3.3 H (0.8-1.5) mg/dL Glucose 177 H (75-100) mg/dL POC Glucose (70-105) Calcium 7.6 L (8.4-10.2) mg/dL 11/04/18 Range/Units 05:23 RBC (3.65-5.03) M/mm3 Hgb (11.8-15.2) gm/dl Hct (35.5-45.6) % MCV (84-94) fl MCH (28-32) pg RDW (13.2-15.2) % POC ABG pCO2 (35-45) POC ABG pO2 (80-105) BUN (9-20) mg/dL Creatinine (0.8-1.5) mg/dL Glucose (75-100) mg/dL POC Glucose 196 H (70-105) Calcium (8.4-10.2) mg/dL Medications & Allergies - Medications Allergies/Adverse Reactions: Allergies No Known Allergies Allergy (Verified 01/18/18 20:10) Home Medications: Home Medications Medication Instructions Recorded Confirmed Last Taken Type Acetaminophen [Acetaminophen TAB] 650 mg PO Q4H PRN 03/12/18 10/31/18 Unknown History Calcium Acetate [Phoslo] 667 mg PO TID 03/12/18 10/31/18 05/13/18 17:00 History Carvedilol [Coreg] 6.25 mg PO BID 03/12/18 10/31/18 05/13/18 09:00 History Ergocalciferol 50,000 unit PO QWEEK 03/12/18 10/31/18 05/11/18 09:00 History Apixaban [Eliquis] 2.5 mg PO BID tablet 08/21/18 10/31/18 Unknown Rx Megestrol [Megace] 400 mg PO QDAY 10/31/18 10/31/18 Unknown History Mirtazapine [Remeron] 15 mg PO QHS 10/31/18 10/31/18 Unknown History Elaine-José Rx Tablet 1 tab PO QDAY 10/31/18 10/31/18 Unknown History Sodium Bicarbonate 650 mg PO BID 10/31/18 10/31/18 Unknown History traMADol [Ultram 50 MG tab] 25 mg PO Q12H PRN 10/31/18 10/31/18 Unknown History Active Medications: Generic Name Dose Route Start Last Admin Trade Name Freq PRN Reason Stop Dose Admin Acetaminophen 650 mg 11/02/18 09:25 Tylenol FEEDTUBE Q6H PRN Fever >101 Lipase/Protease/Amylase 1 each 11/01/18 10:[address] 10,500 Unit FEEDTUBE PRN PRN For Clogged Feeding Tube Famotidine 20 mg 11/01/18 10:00 11/04/18 10:13 Pepcid PO 20 mg DAILY KIRSTEN Administration Heparin Sodium (Porcine) 5,000 unit 10/29/18 22:00 11/04/18 05:11 Heparin SUB-Q 5,000 unit Q8HR KIRSTEN Administration Norepinephrine 4 mg in 250 mls @ 7.5 mls/hr 10/30/18 01:00 11/04/18 05:10 Levophed Drip 4 Mg/Ns 250 Ml IV 8 mcg/min TITR KIRSTEN 30 mls/hr Administration Protocol 2 MCG/MIN Sodium Chloride 100 mls @ 999 mls/hr 11/01/18 09:22 Nacl 0.9% IV ALEJO PRN Hypotension Cefepime HCl 1 gm in 100 mls @ 200 mls/hr 11/02/18 18:00 11/03/18 17:54 Maxipime/Ns 1 Gm/100 Ml IV 200 mls/hr QPM KIRSTEN Administration Protocol Insulin Human Lispro 0 unit 10/30/18 10:00 11/04/18 06:27 Humalog SUB-Q 3 unit Q6HR KIRSTEN Administration Protocol Simple Syrup 15 ml 11/01/18 10:04 Simple Syrup FEEDTUBE PRN PRN Hypoglycemia Simple Syrup 30 ml 11/01/18 10:04 Simple Syrup FEEDTUBE PRN PRN Hypoglycemia Sodium Bicarbonate 325 mg 11/01/18 10:04 Sodium Bicarbonate FEEDTUBE PRN PRN For Clogged Feeding Tube
[2018-11-04 11:28] LABS: Basophils % (Manual) 0 % (0.0-1.8); Total Cells Counted 100
[2018-11-04 11:29] LABS: Dohle Bodies Few; Platelet Estimate Consistent w Auto; Poikilocytosis Few
--- NOTE | 2018-11-04 13:41 | Progress Note ---
Assessment and Plan -s/p PEA arrest -Severe sepsis with septic shock -Fevers, Tracheal aspirate positive for MRSA -Acute hypoxic respiratory failure on MVS -Acute encephalopathy( toxic, metabolic) -Severe protein calorie malnutrition -Hyperkalemia( resolved) -ESRD on HD, clotted graft femoral HD catheter -Hyperosmolar hyperglycemic state( improving) -Hypotension, multifactorial, ?sepsis, dehydration -Hypernatremia, resolved -PVD s/p right BKA -Prostate cancer s/p suprapubic catheter -Continue with MVS -With lateral gaze, get EEG -Lung protective strategies -VAP bundle addressed. -Supplemental oxygen, wean for O2 sats>90% -Daily SBTs as tolerated -VTE prophylaxis( heparin) -Stress ulcer prophylaxis( Famotidine) -High dose sliding scale insulin with accuchecks -Tube feedings with aspiration precautions -Glycemic control, target blood glucose of 140-180mg/dL -Free water flushes - Continue wound care by wound care team -Supportive HD -Wean vasopressor support for MAP>65 -Volume resuscitation -ABG and CXR in am -Serial BMP to monitor sodium levels Sputum positive for MRSA, CONDITION: CRITICAL PROGNOSIS: GUARDED CODE STATUS: DNAR DNAR per daughters wishes, yesterday bith signed. Goals of care to be determined I have spent 35 minutes in the direct care of this critically ill patient, excluding procedure time. Critical care time was spent on this patient and during his initial evaluation, multiple re-evaluations, ordering and interpretation of labs and imaging, medications, discussion with the ICU care team. There is a high probability of clinically significant, sudden, or life- threatening deterioration that has required multiple evaluations and direct attention, intervention, and management. Subjective Date of service: 11/04/18 Principal diagnosis: sepsis, acute resp, failure. Interval history: Patient is seen today for: Acute hypoxemic respiratory failure on MVS; Severe sepsis with septic shock; acute encephaloapthy; Seen and examined at bedside; 24hour events reviewed; nursing and respiratory care staff consulted; No fevers overnight, remains on norepinephrine for hemodynamic support Remains unresponsive, on mechanical ventilatory support, no dys-synchrony Vent AC- 18/350/6/25% ABG 7.424/31.7/74/20.8 Objective - Exam Narrative Exam: Physical Exam: Constitutional: unresponsive, intubated No dyssynchrony Head, Ears, Nose: Normocephalic, atraumatic. External ears, nose normal Eyes: Conjunctivae/corneas clear. No icterus. Lateral gaze, fixed Neck: Supple, no meningeal signs Oral: intubated Cardiovascular: RRR, S1, S2 normal. Respiratory: Good air entry, clear to auscultation bilaterally GI: Soft, bowel sounds hypoactive. Suprapubic cath + with cloudy urine, with some purulence around the catheter site Musculoskeletal: Right AKA, left TMA stumps healed. Right gluteal region with eschar. Left femoral HD cath + Skin: No rash or abscess Hem/Lymphatic: No palpable cervical or supraclavicular nodes. No lymphangitis Psych: no agitation Neurological: unresponsive, intubated, on vent Vital Signs - 12hr 11/04/18 11/04/18 11/04/18 01:45 02:00 02:15 Temperature Pulse Rate 102 H 101 H 102 H Pulse Rate [ 101 H From Monitor] Respiratory 34 H 34 H 34 H Rate Blood Pressure 118/68 111/67 122/70 O2 Sat by Pulse 99 100 100 Oximetry 11/04/18 11/04/18 11/04/18 02:30 02:45 03:00 Temperature Pulse Rate 100 H 99 H 99 H Pulse Rate [ From Monitor] Respiratory 27 H 28 H 22 Rate Blood Pressure 114/68 109/65 117/66 O2 Sat by Pulse 100 100 100 Oximetry 11/04/18 11/04/18 11/04/18 03:15 03:30 03:44 Temperature Pulse Rate 99 H 99 H 99 H Pulse Rate [ From Monitor] Respiratory 32 H 33 H Rate Blood Pressure 126/72 133/71 126/74 O2 Sat by Pulse 100 100 100 Oximetry 11/04/18 11/04/18 11/04/18 03:45 04:00 04:15 Temperature 100.0 F H Pulse Rate 99 H 97 H 99 H Pulse Rate [ 97 H From Monitor] Respiratory 33 H 30 H 33 H Rate Blood Pressure 126/74 126/74 125/74 O2 Sat by Pulse 100 100 100 Oximetry 11/04/18 11/04/18 11/04/18 04:30 04:45 05:00 Temperature Pulse Rate 97 H 99 H 97 H Pulse Rate [ From Monitor] Respiratory 26 H 32 H 28 H Rate Blood Pressure 119/67 114/67 119/67 O2 Sat by Pulse 99 99 99 Oximetry 11/04/18 11/04/18 11/04/18 05:15 08:00 12:00 Temperature 98.8 F 98.4 F Pulse Rate 99 H Pulse Rate [ From Monitor] Respiratory 31 H Rate Blood Pressure 96/54 O2 Sat by Pulse 100 Oximetry 11/04/18 13:13 Temperature Pulse Rate 94 H Pulse Rate [ From Monitor] Respiratory Rate Blood Pressure 120/67 O2 Sat by Pulse 100 Oximetry CBC and BMP: 11/04/18 05:05 11/04/18 05:05 ABG, PT/INR, D-dimer: ABG POC ABG pH 7.424 (7.35-7.45) 11/04/18 03:50 POC ABG pCO2 31.7 (35-45) L 11/04/18 03:50 POC ABG pO2 74 (80-105) L 11/04/18 03:50 POC ABG HCO3 20.8 (22-26 mml/L) 11/04/18 03:50 POC ABG Total CO2 22 (23-27mmol/L) 11/04/18 03:50 POC ABG O2 Sat 95 11/04/18 03:50 Abnormal lab findings: Abnormal Labs 10/29/18 10/29/18 10/29/18 17:13 17:13 17:13 RBC 3.62 L Hgb Hct MCV 102 H MCH 34 H RDW 19.6 H [place] % (Auto) 7.8 H Seg Neutrophils % 71.2 H Seg Neuts % (Manual) Lymphocytes % (Manual) Lymphocytes # (Manual) POC ABG pH POC ABG pCO2 POC ABG pO2 Sodium 164 H* Potassium 6.2 H* Chloride 127.5 H Carbon Dioxide BUN 178 H Creatinine 4.2 H Glucose 131 H POC Glucose Calcium 10.7 H C-Reactive Protein Total Protein 9.5 H Albumin 2.6 L TSH 5.310 H Urine pH Urine WBC (Auto) 10/29/18 10/30/18 10/30/18 23:57 00:06 04:35 RBC Hgb Hct MCV MCH RDW [place] % (Auto) Seg Neutrophils % Seg Neuts % (Manual) Lymphocytes % (Manual) Lymphocytes # (Manual) POC ABG pH 7.488 H POC ABG pCO2 32.1 L 34.9 L POC ABG pO2 144 H Sodium Potassium Chloride Carbon Dioxide BUN Creatinine Glucose POC Glucose 131 H Calcium C-Reactive Protein Total Protein Albumin TSH Urine pH Urine WBC (Auto) 10/30/18 10/30/18 10/30/18 05:13 08:54 08:54 RBC 3.56 L Hgb 11.7 L Hct MCV 102 H MCH 33 H RDW 19.2 H [place] % (Auto) Seg Neutrophils % Seg Neuts % (Manual) Lymphocytes % (Manual) Lymphocytes # (Manual) POC ABG pH POC ABG pCO2 POC ABG pO2 Sodium Potassium Chloride Carbon Dioxide BUN Creatinine Glucose POC Glucose 316 H Calcium C-Reactive Protein 5.20 H Total Protein Albumin 2.2 L TSH Urine pH Urine WBC (Auto) 10/30/18 10/30/18 10/30/18 08:59 12:03 18:30 RBC Hgb Hct MCV MCH RDW [place] % (Auto) Seg Neutrophils % Seg Neuts % (Manual) Lymphocytes % (Manual) Lymphocytes # (Manual) POC ABG pH POC ABG pCO2 POC ABG pO2 Sodium 146 H D Potassium Chloride Carbon Dioxide BUN 86 H Creatinine 2.7 H Glucose 262 H POC Glucose 232 H 57 L Calcium C-Reactive Protein Total Protein Albumin TSH Urine pH Urine WBC (Auto) 10/30/18 10/30/18 10/30/18 18:39 19:07 19:42 RBC Hgb Hct MCV MCH RDW [place] % (Auto) Seg Neutrophils % Seg Neuts % (Manual) Lymphocytes % (Manual) Lymphocytes # (Manual) POC ABG pH POC ABG pCO2 POC ABG pO2 Sodium Potassium Chloride Carbon Dioxide BUN Creatinine Glucose POC Glucose < 40 L 51 L Calcium C-Reactive Protein Total Protein Albumin TSH Urine pH 8.0 H Urine WBC (Auto) > 182.0 H 10/30/18 10/30/18 10/30/18 19:51 23:13 23:20 RBC Hgb Hct MCV MCH RDW [place] % (Auto) Seg Neutrophils % Seg Neuts % (Manual) Lymphocytes % (Manual) Lymphocytes # (Manual) POC ABG pH POC ABG pCO2 POC ABG pO2 Sodium Potassium Chloride 108.5 H Carbon Dioxide 21 L BUN 96 H Creatinine 3.0 H Glucose 865 H* 150 H POC Glucose 152 H Calcium C-Reactive Protein Total Protein Albumin TSH Urine pH Urine WBC (Auto) 10/30/18 10/31/18 10/31/18 23:40 04:43 04:43 RBC Hgb Hct MCV 100 H MCH 33 H RDW 18.1 H [place] % (Auto) Seg Neutrophils % Seg Neuts % (Manual) Lymphocytes % (Manual) 4.0 L Lymphocytes # (Manual) 0.3 L POC ABG pH POC ABG pCO2 POC ABG pO2 Sodium Potassium Chloride Carbon Dioxide 19 L BUN 98 H Creatinine 3.2 H Glucose 184 H POC Glucose 145 H Calcium C-Reactive Protein Total Protein Albumin TSH Urine pH Urine WBC (Auto) 10/31/18 10/31/18 10/31/18 05:44 11:44 13:19 RBC Hgb Hct MCV MCH RDW [place] % (Auto) Seg Neutrophils % Seg Neuts % (Manual) Lymphocytes % (Manual) Lymphocytes # (Manual) POC ABG pH POC ABG pCO2 POC ABG pO2 64 L Sodium Potassium Chloride Carbon Dioxide BUN Creatinine Glucose POC Glucose 142 H 196 H Calcium C-Reactive Protein Total Protein Albumin TSH Urine pH Urine WBC (Auto) 10/31/18 11/01/18 11/01/18 17:36 04:07 04:07 RBC 3.40 L Hgb 11.2 L Hct 33.6 L MCV 99 H MCH 33 H RDW 17.5 H [place] % (Auto) Seg Neutrophils % Seg Neuts % (Manual) 80.0 H Lymphocytes % (Manual) 4.0 L Lymphocytes # (Manual) 0.3 L POC ABG pH POC ABG pCO2 POC ABG pO2 Sodium Potassium Chloride Carbon Dioxide 19 L BUN 108 H Creatinine 3.9 H Glucose 138 H POC Glucose 174 H Calcium 7.9 L C-Reactive Protein Total Protein Albumin TSH Urine pH Urine WBC (Auto) 11/01/18 11/01/18 11/01/18 05:24 05:36 13:09 RBC Hgb Hct MCV MCH RDW [place] % (Auto) Seg Neutrophils % Seg Neuts % (Manual) Lymphocytes % (Manual) Lymphocytes # (Manual) POC ABG pH POC ABG pCO2 POC ABG pO2 65 L Sodium Potassium Chloride Carbon Dioxide BUN Creatinine Glucose POC Glucose 153 H 249 H Calcium C-Reactive Protein Total Protein Albumin TSH Urine pH Urine WBC (Auto) 11/01/18 11/02/18 11/02/18 18:11 05:04 07:17 RBC 3.08 L Hgb 10.1 L Hct 30.1 L MCV 98 H MCH 33 H RDW 16.7 H [place] % (Auto) Seg Neutrophils % Seg Neuts % (Manual) 92.0 H Lymphocytes % (Manual) 3.0 L Lymphocytes # (Manual) 0.2 L POC ABG pH POC ABG pCO2 POC ABG pO2 Sodium Potassium Chloride Carbon Dioxide BUN Creatinine Glucose POC Glucose 175 H 118 H Calcium C-Reactive Protein Total Protein Albumin TSH Urine pH Urine WBC (Auto) 11/02/18 11/02/18 11/02/18 07:54 09:32 12:28 RBC Hgb Hct MCV MCH RDW [place] % (Auto) Seg Neutrophils % Seg Neuts % (Manual) Lymphocytes % (Manual) Lymphocytes # (Manual) POC ABG pH 7.514 H POC ABG pCO2 POC ABG pO2 70 L Sodium 135 L Potassium Chloride Carbon Dioxide BUN 48 H Creatinine 2.2 H Glucose 170 H POC Glucose 242 H Calcium 7.4 L C-Reactive Protein Total Protein Albumin TSH Urine pH Urine WBC (Auto) 11/02/18 11/03/18 11/03/18 23:32 04:34 05:10 RBC 2.87 L Hgb 9.4 L Hct 28.5 L MCV 99 H MCH 33 H RDW 16.7 H [place] % (Auto) Seg Neutrophils % Seg Neuts % (Manual) 91.0 H Lymphocytes % (Manual) 4.0 L Lymphocytes # (Manual) 0.3 L POC ABG pH POC ABG pCO2 33.2 L POC ABG pO2 76 L Sodium Potassium Chloride Carbon Dioxide BUN Creatinine Glucose POC Glucose 177 H Calcium C-Reactive Protein Total Protein Albumin TSH Urine pH Urine WBC (Auto) 11/03/18 11/03/18 11/03/18 06:04 12:26 18:43 RBC Hgb Hct MCV MCH RDW [place] % (Auto) Seg Neutrophils % Seg Neuts % (Manual) Lymphocytes % (Manual) Lymphocytes # (Manual) POC ABG pH POC ABG pCO2 POC ABG pO2 Sodium Potassium Chloride Carbon Dioxide BUN Creatinine Glucose POC Glucose 168 H 196 H 153 H Calcium C-Reactive Protein Total Protein Albumin TSH Urine pH Urine WBC (Auto) 11/03/18 11/04/18 11/04/18 23:34 03:50 05:05 RBC 2.74 L Hgb 9.1 L Hct 27.3 L MCV 99 H MCH 33 H RDW 16.5 H [place] % (Auto) Seg Neutrophils % Seg Neuts % (Manual) 87.0 H Lymphocytes % (Manual) 7.0 L Lymphocytes # (Manual) 0.5 L POC ABG pH POC ABG pCO2 31.7 L POC ABG pO2 74 L Sodium Potassium Chloride Carbon Dioxide BUN Creatinine Glucose POC Glucose 213 H Calcium C-Reactive Protein Total Protein Albumin TSH Urine pH Urine WBC (Auto) 11/04/18 11/04/18 11/04/18 05:05 05:23 12:26 RBC Hgb Hct MCV MCH RDW [place] % (Auto) Seg Neutrophils % Seg Neuts % (Manual) Lymphocytes % (Manual) Lymphocytes # (Manual) POC ABG pH POC ABG pCO2 POC ABG pO2 Sodium Potassium Chloride Carbon Dioxide BUN 84 H Creatinine 3.3 H Glucose 177 H POC Glucose 196 H 182 H Calcium 7.6 L C-Reactive Protein Total Protein Albumin TSH Urine pH Urine WBC (Auto) Chest x-ray: image reviewed
[2018-11-04] MEDS ORDERED: HEPARIN ONE (14:24)
--- NOTE | 2018-11-04 16:41 | Progress Note ---
Assessment and Plan Cultures: 10/29/2018 Blood culture: No growth 10/30/2018 sputum culture: MRSA 10/30/2018 urine culture: Mixed growth 11/02/2018 blood culture: no growth A/P: 73-year-old male with prostate cancer, ESRD on hemodialysis, diabetes mellitus, peripheral vascular disease status post right-sided AKA is admitted to the hospital [facility] a [facility] due to altered mental status. Apparently, the patient had been refusing dialysis for a week prior to admission. Now with: 1) Severe sepsis with shock s/p PEA arrest: on pressors, mechanical ventilation. 2) Right-sided pneumonia with acute hypoxic respiratory failure: On mechanical ventilation. Chest x-ray showing right-sided infiltrate. Sputum culture growing MRSA. 3) Possible UTI: Patient with indwelling suprapubic catheter. Also with ESRD on hemodialysis. This makes UA difficult to interpret for infection since quite likely to have urinary sediment. 4) ESRD on hemodialysis: Noncompliant. Renally dose abx. 5) Peripheral vascular disease: Status post right BKA, left TMA. 6) Right gluteal decubitus ulcer with eschar: continue wound care. 7) R sphenoid sinusitis noted on CT: already on abx. Recs: continue renally adjusted IV cefepime and vancomycin, target pre-dialysis level 10-20 mcg/ml Overall extremely poor prognosis, recommend comfort care Aaron Regan MD [facility] C: [phone] O: [phone] F: [phone] Subjective Date of service: 11/04/18 Principal diagnosis: sepsis, acute resp, failure. Interval history: Remains unresponsive. on vent. Intermittent fevers + Objective - Exam Narrative Exam: Physical Exam: Constitutional: unresponsive, intubated Head, Ears, Nose: Normocephalic, atraumatic. External ears, nose normal Eyes: Conjunctivae/corneas clear. No icterus. No ptosis. Neck: Supple, no meningeal signs Oral: intubated Cardiovascular: S1, S2 normal. Respiratory: Good air entry, clear to auscultation bilaterally GI: Soft, bowel sounds hypoactive. Suprapubic cath + with cloudy urine Musculoskeletal: Right AKA, left TMA stumps healed. Right gluteal region with eschar. Left femoral HD cath + Skin: No rash or abscess Hem/Lymphatic: No palpable cervical or supraclavicular nodes. No lymphangitis Psych: no agitation Neurological: unresponsive, intubated, on vent - Constitutional Vitals: Vital Signs Temp Pulse Resp BP Pulse Ox 98.4 F 97 H 25 H 124/71 100 11/04/18 12:00 11/04/18 16:00 11/04/18 16:00 11/04/18 16:00 11/04/18 16:00 Temperature -Last 24 Hours Temperature 98.4 F Temperature 98.8 F Temperature 100.0 F Temperature 98.8 F Temperature 98.4 F Temperature 99.8 F - Labs CBC & Chem 7: 11/04/18 05:05 11/04/18 05:05 Labs: Abnormal lab results 11/03/18 11/03/18 11/04/18 Range/Units 18:43 23:34 03:50 RBC (3.65-5.03) M/mm3 Hgb (11.8-15.2) gm/dl Hct (35.5-45.6) % MCV (84-94) fl MCH (28-32) pg RDW (13.2-15.2) % Seg Neuts % (Manual) (40.0-70.0) % Lymphocytes % (Manual) (13.4-35.0) % Lymphocytes # (Manual) (1.2-5.4) K/mm3 POC ABG pCO2 31.7 L (35-45) POC ABG pO2 74 L (80-105) BUN (9-20) mg/dL Creatinine (0.8-1.5) mg/dL Glucose (75-100) mg/dL POC Glucose 153 H 213 H (70-105) Calcium (8.4-10.2) mg/dL Vancomycin Trough (5.0-20.0) ug/mL 11/04/18 11/04/18 11/04/18 Range/Units 05:05 05:05 05:23 RBC 2.74 L (3.65-5.03) M/mm3 Hgb 9.1 L (11.8-15.2) gm/dl Hct 27.3 L (35.5-45.6) % MCV 99 H (84-94) fl MCH 33 H (28-32) pg RDW 16.5 H (13.2-15.2) % Seg Neuts % (Manual) 87.0 H (40.0-70.0) % Lymphocytes % (Manual) 7.0 L (13.4-35.0) % Lymphocytes # (Manual) 0.5 L (1.2-5.4) K/mm3 POC ABG pCO2 (35-45) POC ABG pO2 (80-105) BUN 84 H (9-20) mg/dL Creatinine 3.3 H (0.8-1.5) mg/dL Glucose 177 H (75-100) mg/dL POC Glucose 196 H (70-105) Calcium 7.6 L (8.4-10.2) mg/dL Vancomycin Trough (5.0-20.0) ug/mL 11/04/18 11/04/18 Range/Units 12:26 13:25 RBC (3.65-5.03) M/mm3 Hgb (11.8-15.2) gm/dl Hct (35.5-45.6) % MCV (84-94) fl MCH (28-32) pg RDW (13.2-15.2) % Seg Neuts % (Manual) (40.0-70.0) % Lymphocytes % (Manual) (13.4-35.0) % Lymphocytes # (Manual) (1.2-5.4) K/mm3 POC ABG pCO2 (35-45) POC ABG pO2 (80-105) BUN (9-20) mg/dL Creatinine (0.8-1.5) mg/dL Glucose (75-100) mg/dL POC Glucose 182 H (70-105) Calcium (8.4-10.2) mg/dL Vancomycin Trough 4.4 L (5.0-20.0) ug/mL
[2018-11-04] MEDS: MAXIPIME/NS 1 GM/100 ML 1 GM/100 ML BAG IV SCH (17:16)
[2018-11-04] MEDS ORDERED: VANCOMYCIN 500 MG in NACL 0.9% 100 ML IV ONE (18:00)
[2018-11-05] MEDS: LEVOPHED DRIP 4 MG/NS 250 ML 4 MG/250 ML BAG IV SCH (05:52)
[2018-11-05] MEDS: HumaLOG SUB-Q SCH ×4 (06:00→19:35)
[2018-11-05 07:16] LABS: Calcium 7.8 mg/dL (8.4-10.2)
[2018-11-05] MEDS ORDERED: NACL 0.9% 100 ML IV PRN (08:53)
[2018-11-05] MEDS: PEPCID PO SCH (09:58)
--- NOTE | 2018-11-05 11:25 | Progress Note ---
Assessment and Plan Cultures: 10/29/2018 Blood culture: No growth 10/30/2018 sputum culture: MRSA 10/30/2018 urine culture: Mixed growth 11/02/2018 blood culture: no growth A/P: 73-year-old male with prostate cancer, ESRD on hemodialysis, diabetes mellitus, peripheral vascular disease status post right-sided AKA is admitted to the hospital as a transfer from the [facility] due to altered mental status. Apparently, the patient had been refusing dialysis for a week prior to admission. Now with: 1) Severe sepsis with shock s/p PEA arrest: on pressors, mechanical ventilation. 2) Right-sided pneumonia with acute hypoxic respiratory failure: On mechanical ventilation. Chest x-ray showing right-sided infiltrate. Sputum culture growing MRSA. 3) Possible UTI: Patient with indwelling suprapubic catheter. Also with ESRD on hemodialysis. This makes UA difficult to interpret for infection since quite likely to have urinary sediment. 4) ESRD on hemodialysis: Noncompliant. Renally dose abx. 5) Peripheral vascular disease: Status post right BKA, left TMA. 6) Right gluteal decubitus ulcer with eschar: continue wound care. 7) R sphenoid sinusitis noted on CT: already on abx. Recs: continue renally adjusted IV cefepime and vancomycin, target pre-dialysis level 10-20 mcg/ml Overall extremely poor prognosis, recommend comfort care Aaron Regan MD [facility] C: [phone] O: [phone] F: [phone] Subjective Date of service: 11/05/18 Principal diagnosis: sepsis, acute resp, failure. Interval history: Remains on pressors. Low grade fevers. On the vent. Objective - Exam Narrative Exam: Physical Exam: Constitutional: unresponsive, intubated Head, Ears, Nose: Normocephalic, atraumatic. External ears, nose normal Eyes: Conjunctivae/corneas clear. No icterus. No ptosis. Neck: Supple, no meningeal signs Oral: intubated Cardiovascular: S1, S2 normal. Respiratory: Good air entry, clear to auscultation bilaterally GI: Soft, bowel sounds hypoactive. Suprapubic cath + with cloudy urine Musculoskeletal: Right AKA, left TMA stumps healed. Right gluteal region with eschar. Left femoral HD cath + Skin: No rash or abscess Hem/Lymphatic: No palpable cervical or supraclavicular nodes. No lymphangitis Psych: no agitation Neurological: unresponsive, intubated, on vent - Constitutional Vitals: Vital Signs Temp Pulse Resp BP Pulse Ox 98.7 F 90 23 135/74 99 11/04/18 17:21 11/05/18 11:00 11/05/18 11:00 11/05/18 11:00 11/05/18 11:00 Temperature -Last 24 Hours Temperature 98.7 F Temperature 98.4 F - Labs CBC & Chem 7: 11/04/18 05:05 11/05/18 06:36 Labs: Abnormal lab results 11/04/18 11/04/18 11/04/18 Range/Units 05:05 12:26 13:25 Seg Neuts % (Manual) 87.0 H (40.0-70.0) % Lymphocytes % (Manual) 7.0 L (13.4-35.0) % Lymphocytes # (Manual) 0.5 L (1.2-5.4) K/mm3 POC ABG pCO2 (35-45) POC ABG pO2 (80-105) Sodium (137-145) mmol/L Potassium (3.6-5.0) mmol/L Carbon Dioxide (22-30) mmol/L BUN (9-20) mg/dL Creatinine (0.8-1.5) mg/dL Glucose (75-100) mg/dL POC Glucose 182 H (70-105) Calcium (8.4-10.2) mg/dL Vancomycin Trough 4.4 L (5.0-20.0) ug/mL 11/04/18 11/05/18 11/05/18 Range/Units 22:36 05:07 05:42 Seg Neuts % (Manual) (40.0-70.0) % Lymphocytes % (Manual) (13.4-35.0) % Lymphocytes # (Manual) (1.2-5.4) K/mm3 POC ABG pCO2 30.1 L (35-45) POC ABG pO2 63 L (80-105) Sodium (137-145) mmol/L Potassium (3.6-5.0) mmol/L Carbon Dioxide (22-30) mmol/L BUN (9-20) mg/dL Creatinine (0.8-1.5) mg/dL Glucose (75-100) mg/dL POC Glucose 159 H 233 H (70-105) Calcium (8.4-10.2) mg/dL Vancomycin Trough (5.0-20.0) ug/mL 11/05/18 Range/Units 06:36 Seg Neuts % (Manual) (40.0-70.0) % Lymphocytes % (Manual) (13.4-35.0) % Lymphocytes # (Manual) (1.2-5.4) K/mm3 POC ABG pCO2 (35-45) POC ABG pO2 (80-105) Sodium 134 L (137-145) mmol/L Potassium 3.4 L (3.6-5.0) mmol/L Carbon Dioxide 18 L (22-30) mmol/L BUN 93 H (9-20) mg/dL Creatinine 3.7 H (0.8-1.5) mg/dL Glucose 230 H (75-100) mg/dL POC Glucose (70-105) Calcium 7.8 L (8.4-10.2) mg/dL Vancomycin Trough (5.0-20.0) ug/mL
--- NOTE | 2018-11-05 11:44 | Progress Note ---
Assessment and Plan s/p PEA arrest Severe sepsis with septic shock Fevers, Tracheal aspirate positive for MRSA Acute hypoxic respiratory failure on MVS Acute encephalopathy( toxic, metabolic) Severe protein calorie malnutrition Hyperkalemia( resolved) ESRD on HD, clotted graft femoral HD catheter Hyperosmolar hyperglycemic state( improving) Hypotension, multifactorial, ?sepsis, dehydration Hypernatremia, resolved PVD s/p right BKA Prostate cancer s/p suprapubic catheter - prn saline boluses for MAP < 65 mmHg - target vasopressors to keep MAP > 65 mmHg if not volume responsive - Continue with full MVS - follow EEG report - neurology evaluation - continue Lung protective strategies - daily SAT's - VAP bundle addressed. - Supplemental oxygen, wean for O2 sats>90% - Daily SBTs as tolerated - VTE prophylaxis( heparin) - Stress ulcer prophylaxis( Famotidine) - High dose sliding scale insulin with accuchecks - Tube feedings with aspiration precautions - Glycemic control, target blood glucose of 140-180mg/dL - Free water flushes - Continue wound care by wound care team - Supportive HD/UF for toxin and volu - Wean vasopressor support for MAP>65 - Volume resuscitation - ABG and CXR in am - Serial BMP to monitor sodium levels - Sputum positive for MRSA (contact isolation instituted) CONDITION: CRITICAL PROGNOSIS: GUARDED CODE STATUS: DNAR DNAR per daughters wishes, yesterday bith signed. Goals of care to be determined Subjective Date of service: 11/05/18 Principal diagnosis: sepsis, acute resp, failure. Interval history: Patient is seen today for: Acute hypoxemic respiratory failure on MVS; Severe sepsis with septic shock; acute encephaloapthy Seen and examined at bedside; 24hour events reviewed; nursing and respiratory care staff consulted; no adverse overnight events reported to me; resting peacefully in bed; remains on MVS; AMS is persistent; BP's labile and on vasopressors; no emesis or overt aspiration Objective Vital Signs - 12hr 11/04/18 11/05/18 11/05/18 23:45 00:00 00:15 Pulse Rate 99 H 99 H 98 H Pulse Rate [ 102 H From Monitor] Respiratory 15 30 H 29 H Rate Blood Pressure 121/65 116/66 120/66 O2 Sat by Pulse 97 96 96 Oximetry 11/05/18 11/05/18 11/05/18 00:30 00:45 01:00 Pulse Rate 99 H 99 H 100 H Pulse Rate [ From Monitor] Respiratory 31 H 29 H 31 H Rate Blood Pressure 116/66 115/62 115/62 O2 Sat by Pulse 96 96 96 Oximetry 11/05/18 11/05/18 11/05/18 01:15 01:30 01:45 Pulse Rate 100 H 100 H 100 H Pulse Rate [ From Monitor] Respiratory 30 H 29 H 31 H Rate Blood Pressure 116/66 117/64 113/63 O2 Sat by Pulse 96 97 96 Oximetry 11/05/18 11/05/18 11/05/18 02:00 02:15 02:30 Pulse Rate 101 H 101 H 102 H Pulse Rate [ From Monitor] Respiratory 29 H 29 H 30 H Rate Blood Pressure 113/63 120/65 111/64 O2 Sat by Pulse 97 97 96 Oximetry 11/05/18 11/05/18 11/05/18 02:45 03:00 03:15 Pulse Rate 102 H 102 H 102 H Pulse Rate [ From Monitor] Respiratory 30 H 30 H 30 H Rate Blood Pressure 116/66 121/64 111/64 O2 Sat by Pulse 96 96 95 Oximetry 11/05/18 11/05/18 11/05/18 03:30 03:45 04:00 Pulse Rate 103 H 102 H 105 H Pulse Rate [ 98 H From Monitor] Respiratory 31 H 30 H 30 H Rate Blood Pressure 120/67 110/64 125/71 O2 Sat by Pulse 96 94 100 Oximetry 11/05/18 11/05/18 11/05/18 04:15 04:28 04:30 Pulse Rate 100 H 100 H 101 H Pulse Rate [ From Monitor] Respiratory 30 H 30 H Rate Blood Pressure 113/65 115/66 115/66 O2 Sat by Pulse 93 94 94 Oximetry 11/05/18 11/05/18 11/05/18 04:45 05:00 05:15 Pulse Rate 100 H 103 H 102 H Pulse Rate [ From Monitor] Respiratory 31 H 29 H 29 H Rate Blood Pressure 124/67 85/51 103/57 O2 Sat by Pulse 94 95 95 Oximetry 11/05/18 11/05/18 11/05/18 05:30 05:45 06:00 Pulse Rate 99 H 99 H 99 H Pulse Rate [ From Monitor] Respiratory 29 H 28 H 28 H Rate Blood Pressure 120/64 125/67 125/67 O2 Sat by Pulse 96 97 96 Oximetry 11/05/18 11/05/18 11/05/18 06:15 06:30 06:45 Pulse Rate 98 H 98 H 98 H Pulse Rate [ From Monitor] Respiratory 27 H 29 H 26 H Rate Blood Pressure 123/64 121/65 116/63 O2 Sat by Pulse 97 97 97 Oximetry 11/05/18 11/05/18 11/05/18 07:00 07:15 07:28 Pulse Rate 98 H 97 H 96 H Pulse Rate [ From Monitor] Respiratory 28 H 28 H Rate Blood Pressure 113/64 109/63 109/63 O2 Sat by Pulse 97 98 98 Oximetry 11/05/18 11/05/18 11/05/18 07:30 07:31 07:45 Pulse Rate 96 H 96 H 97 H Pulse Rate [ From Monitor] Respiratory 27 H 26 H 22 Rate Blood Pressure 118/66 118/66 130/68 O2 Sat by Pulse 98 98 98 Oximetry 11/05/18 11/05/18 11/05/18 08:00 08:15 08:30 Pulse Rate 95 H 96 H 97 H Pulse Rate [ From Monitor] Respiratory 25 H 28 H 27 H Rate Blood Pressure 113/63 117/65 122/66 O2 Sat by Pulse 98 98 98 Oximetry 11/05/18 11/05/18 11/05/18 08:45 09:00 09:15 Pulse Rate 95 H 93 H 93 H Pulse Rate [ From Monitor] Respiratory 27 H 23 24 Rate Blood Pressure 124/66 114/63 113/61 O2 Sat by Pulse 96 97 96 Oximetry 11/05/18 11/05/18 11/05/18 09:30 09:45 10:00 Pulse Rate 93 H 94 H 91 H Pulse Rate [ From Monitor] Respiratory 25 H 25 H 24 Rate Blood Pressure 120/67 127/68 121/64 O2 Sat by Pulse 97 97 98 Oximetry 11/05/18 11/05/18 11/05/18 10:15 10:30 10:45 Pulse Rate 91 H 90 91 H Pulse Rate [ From Monitor] Respiratory 26 H 26 H 26 H Rate Blood Pressure 133/73 123/76 125/76 O2 Sat by Pulse 99 99 99 Oximetry 11/05/18 11:00 Pulse Rate 90 Pulse Rate [ From Monitor] Respiratory 23 Rate Blood Pressure 135/74 O2 Sat by Pulse 99 Oximetry Constitutional: no acute distress, other (elderly looking AAM, normocepahlic and atraumatic with mildly increased resp effort at rest) Eyes: non-icteric ENT: oropharynx moist, other (ETT 23 cm CATHLEEN) Neck: supple, no lymphadenopathy, no JVD, other (no thyromegaly) Effort: mildly labored Ascultation: Bilateral: diminished breath sounds, rhonchi Percussion: Bilateral: not dull Cardiovascular: regular rate and rhythm, murmur noted (systolic) Gastrointestinal: normoactive bowel sounds, soft, non-tender, non-distended Integumentary: rash Extremities: no cyanosis, no edema, pulses normal, no ischemia or petechiae Neurologic: unable to assess Psychiatric: other (unable to assess) CBC and BMP: 11/15/18 07:40 11/14/18 04:32 ABG, PT/INR, D-dimer: ABG POC ABG pH 7.412 (7.35-7.45) 11/05/18 05:07 POC ABG pCO2 30.1 (35-45) L 11/05/18 05:07 POC ABG pO2 63 (80-105) L 11/05/18 05:07 POC ABG HCO3 19.2 (22-26 mml/L) 11/05/18 05:07 POC ABG Total CO2 20 (23-27mmol/L) 11/05/18 05:07 POC ABG O2 Sat 93 11/05/18 05:07 Abnormal lab findings: Abnormal Labs 10/29/18 10/29/18 10/29/18 17:13 17:13 17:13 RBC 3.62 L Hgb Hct MCV 102 H MCH 34 H RDW 19.6 H [place] % (Auto) 7.8 H Seg Neutrophils % 71.2 H Seg Neuts % (Manual) Lymphocytes % (Manual) Lymphocytes # (Manual) POC ABG pH POC ABG pCO2 POC ABG pO2 Sodium 164 H* Potassium 6.2 H* Chloride 127.5 H Carbon Dioxide BUN 178 H Creatinine 4.2 H Glucose 131 H POC Glucose Calcium 10.7 H C-Reactive Protein Total Protein 9.5 H Albumin 2.6 L TSH 5.310 H Urine pH Urine WBC (Auto) Vancomycin Trough 10/29/18 10/30/18 10/30/18 23:57 00:06 04:35 RBC Hgb Hct MCV MCH RDW [place] % (Auto) Seg Neutrophils % Seg Neuts % (Manual) Lymphocytes % (Manual) Lymphocytes # (Manual) POC ABG pH 7.488 H POC ABG pCO2 32.1 L 34.9 L POC ABG pO2 144 H Sodium Potassium Chloride Carbon Dioxide BUN Creatinine Glucose POC Glucose 131 H Calcium C-Reactive Protein Total Protein Albumin TSH Urine pH Urine WBC (Auto) Vancomycin Trough 10/30/18 10/30/18 10/30/18 05:13 08:54 08:54 RBC 3.56 L Hgb 11.7 L Hct MCV 102 H MCH 33 H RDW 19.2 H [place] % (Auto) Seg Neutrophils % Seg Neuts % (Manual) Lymphocytes % (Manual) Lymphocytes # (Manual) POC ABG pH POC ABG pCO2 POC ABG pO2 Sodium Potassium Chloride Carbon Dioxide BUN Creatinine Glucose POC Glucose 316 H Calcium C-Reactive Protein 5.20 H Total Protein Albumin 2.2 L TSH Urine pH Urine WBC (Auto) Vancomycin Trough 10/30/18 10/30/18 10/30/18 08:59 12:03 18:30 RBC Hgb Hct MCV MCH RDW [place] % (Auto) Seg Neutrophils % Seg Neuts % (Manual) Lymphocytes % (Manual) Lymphocytes # (Manual) POC ABG pH POC ABG pCO2 POC ABG pO2 Sodium 146 H D Potassium Chloride Carbon Dioxide BUN 86 H Creatinine 2.7 H Glucose 262 H POC Glucose 232 H 57 L Calcium C-Reactive Protein Total Protein Albumin TSH Urine pH Urine WBC (Auto) Vancomycin Trough 10/30/18 10/30/18 10/30/18 18:39 19:07 19:42 RBC Hgb Hct MCV MCH RDW [place] % (Auto) Seg Neutrophils % Seg Neuts % (Manual) Lymphocytes % (Manual) Lymphocytes # (Manual) POC ABG pH POC ABG pCO2 POC ABG pO2 Sodium Potassium Chloride Carbon Dioxide BUN Creatinine Glucose POC Glucose < 40 L 51 L Calcium C-Reactive Protein Total Protein Albumin TSH Urine pH 8.0 H Urine WBC (Auto) > 182.0 H Vancomycin Trough 10/30/18 10/30/18 10/30/18 19:51 23:13 23:20 RBC Hgb Hct MCV MCH RDW [place] % (Auto) Seg Neutrophils % Seg Neuts % (Manual) Lymphocytes % (Manual) Lymphocytes # (Manual) POC ABG pH POC ABG pCO2 POC ABG pO2 Sodium Potassium Chloride 108.5 H Carbon Dioxide 21 L BUN 96 H Creatinine 3.0 H Glucose 865 H* 150 H POC Glucose 152 H Calcium C-Reactive Protein Total Protein Albumin TSH Urine pH Urine WBC (Auto) Vancomycin Trough 10/30/18 10/31/18 10/31/18 23:40 04:43 04:43 RBC Hgb Hct MCV 100 H MCH 33 H RDW 18.1 H [place] % (Auto) Seg Neutrophils % Seg Neuts % (Manual) Lymphocytes % (Manual) 4.0 L Lymphocytes # (Manual) 0.3 L POC ABG pH POC ABG pCO2 POC ABG pO2 Sodium Potassium Chloride Carbon Dioxide 19 L BUN 98 H Creatinine 3.2 H Glucose 184 H POC Glucose 145 H Calcium C-Reactive Protein Total Protein Albumin TSH Urine pH Urine WBC (Auto) Vancomycin Trough 10/31/18 10/31/18 10/31/18 05:44 11:44 13:19 RBC Hgb Hct MCV MCH RDW [place] % (Auto) Seg Neutrophils % Seg Neuts % (Manual) Lymphocytes % (Manual) Lymphocytes # (Manual) POC ABG pH POC ABG pCO2 POC ABG pO2 64 L Sodium Potassium Chloride Carbon Dioxide BUN Creatinine Glucose POC Glucose 142 H 196 H Calcium C-Reactive Protein Total Protein Albumin TSH Urine pH Urine WBC (Auto) Vancomycin Trough 10/31/18 11/01/18 11/01/18 17:36 04:07 04:07 RBC 3.40 L Hgb 11.2 L Hct 33.6 L MCV 99 H MCH 33 H RDW 17.5 H [place] % (Auto) Seg Neutrophils % Seg Neuts % (Manual) 80.0 H Lymphocytes % (Manual) 4.0 L Lymphocytes # (Manual) 0.3 L POC ABG pH POC ABG pCO2 POC ABG pO2 Sodium Potassium Chloride Carbon Dioxide 19 L BUN 108 H Creatinine 3.9 H Glucose 138 H POC Glucose 174 H Calcium 7.9 L C-Reactive Protein Total Protein Albumin TSH Urine pH Urine WBC (Auto) Vancomycin Trough 11/01/18 11/01/18 11/01/18 05:24 05:36 13:09 RBC Hgb Hct MCV MCH RDW [place] % (Auto) Seg Neutrophils % Seg Neuts % (Manual) Lymphocytes % (Manual) Lymphocytes # (Manual) POC ABG pH POC ABG pCO2 POC ABG pO2 65 L Sodium Potassium Chloride Carbon Dioxide BUN Creatinine Glucose POC Glucose 153 H 249 H Calcium C-Reactive Protein Total Protein Albumin TSH Urine pH Urine WBC (Auto) Vancomycin Trough 11/01/18 11/02/18 11/02/18 18:11 05:04 07:17 RBC 3.08 L Hgb 10.1 L Hct 30.1 L MCV 98 H MCH 33 H RDW 16.7 H [place] % (Auto) Seg Neutrophils % Seg Neuts % (Manual) 92.0 H Lymphocytes % (Manual) 3.0 L Lymphocytes # (Manual) 0.2 L POC ABG pH POC ABG pCO2 POC ABG pO2 Sodium Potassium Chloride Carbon Dioxide BUN Creatinine Glucose POC Glucose 175 H 118 H Calcium C-Reactive Protein Total Protein Albumin TSH Urine pH Urine WBC (Auto) Vancomycin Trough 11/02/18 11/02/18 11/02/18 07:54 09:32 12:28 RBC Hgb Hct MCV MCH RDW [place] % (Auto) Seg Neutrophils % Seg Neuts % (Manual) Lymphocytes % (Manual) Lymphocytes # (Manual) POC ABG pH 7.514 H POC ABG pCO2 POC ABG pO2 70 L Sodium 135 L Potassium Chloride Carbon Dioxide BUN 48 H Creatinine 2.2 H Glucose 170 H POC Glucose 242 H Calcium 7.4 L C-Reactive Protein Total Protein Albumin TSH Urine pH Urine WBC (Auto) Vancomycin Trough 11/02/18 11/03/18 11/03/18 23:32 04:34 05:10 RBC 2.87 L Hgb 9.4 L Hct 28.5 L MCV 99 H MCH 33 H RDW 16.7 H [place] % (Auto) Seg Neutrophils % Seg Neuts % (Manual) 91.0 H Lymphocytes % (Manual) 4.0 L Lymphocytes # (Manual) 0.3 L POC ABG pH POC ABG pCO2 33.2 L POC ABG pO2 76 L Sodium Potassium Chloride Carbon Dioxide BUN Creatinine Glucose POC Glucose 177 H Calcium C-Reactive Protein Total Protein Albumin TSH Urine pH Urine WBC (Auto) Vancomycin Trough 11/03/18 11/03/18 11/03/18 06:04 12:26 18:43 RBC Hgb Hct MCV MCH RDW [place] % (Auto) Seg Neutrophils % Seg Neuts % (Manual) Lymphocytes % (Manual) Lymphocytes # (Manual) POC ABG pH POC ABG pCO2 POC ABG pO2 Sodium Potassium Chloride Carbon Dioxide BUN Creatinine Glucose POC Glucose 168 H 196 H 153 H Calcium C-Reactive Protein Total Protein Albumin TSH Urine pH Urine WBC (Auto) Vancomycin Trough 11/03/18 11/04/18 11/04/18 23:34 03:50 05:05 RBC 2.74 L Hgb 9.1 L Hct 27.3 L MCV 99 H MCH 33 H RDW 16.5 H [place] % (Auto) Seg Neutrophils % Seg Neuts % (Manual) 87.0 H Lymphocytes % (Manual) 7.0 L Lymphocytes # (Manual) 0.5 L POC ABG pH POC ABG pCO2 31.7 L POC ABG pO2 74 L Sodium Potassium Chloride Carbon Dioxide BUN Creatinine Glucose POC Glucose 213 H Calcium C-Reactive Protein Total Protein Albumin TSH Urine pH Urine WBC (Auto) Vancomycin Trough 11/04/18 11/04/18 11/04/18 05:05 05:23 12:26 RBC Hgb Hct MCV MCH RDW [place] % (Auto) Seg Neutrophils % Seg Neuts % (Manual) Lymphocytes % (Manual) Lymphocytes # (Manual) POC ABG pH POC ABG pCO2 POC ABG pO2 Sodium Potassium Chloride Carbon Dioxide BUN 84 H Creatinine 3.3 H Glucose 177 H POC Glucose 196 H 182 H Calcium 7.6 L C-Reactive Protein Total Protein Albumin TSH Urine pH Urine WBC (Auto) Vancomycin Trough 11/04/18 11/04/18 11/05/18 13:25 22:36 05:07 RBC Hgb Hct MCV MCH RDW [place] % (Auto) Seg Neutrophils % Seg Neuts % (Manual) Lymphocytes % (Manual) Lymphocytes # (Manual) POC ABG pH POC ABG pCO2 30.1 L POC ABG pO2 63 L Sodium Potassium Chloride Carbon Dioxide BUN Creatinine Glucose POC Glucose 159 H Calcium C-Reactive Protein Total Protein Albumin TSH Urine pH Urine WBC (Auto) Vancomycin Trough 4.4 L 11/05/18 11/05/18 05:42 06:36 RBC Hgb Hct MCV MCH RDW [place] % (Auto) Seg Neutrophils % Seg Neuts % (Manual) Lymphocytes % (Manual) Lymphocytes # (Manual) POC ABG pH POC ABG pCO2 POC ABG pO2 Sodium 134 L Potassium 3.4 L Chloride Carbon Dioxide 18 L BUN 93 H Creatinine 3.7 H Glucose 230 H POC Glucose 233 H Calcium 7.8 L C-Reactive Protein Total Protein Albumin TSH Urine pH Urine WBC (Auto) Vancomycin Trough Chest x-ray: pending Allied health notes reviewed: nursing
--- NOTE | 2018-11-05 12:48 | Progress Note ---
Assessment and Plan 1. ESRD: Patient was last dialyzed 4 days ago. Patient remain hypotensive on pressors. HD today. Monitor for COWLMAN needs. 2. FEN: Hyperkalemia, improved. Hypernatremia, improved. 3. Respiratory failure: On vent. 4. Septic Shock: On Levophed. 5. Pneumonia. 6. Anemia: Epogen today. D/w his daughters at the bedside. Subjective Date of service: 11/05/18 Principal diagnosis: sepsis, acute resp, failure. Interval history: Patient was seen and examined at the bedside. Objective - Vital Signs Vital signs: Vital Signs - 12hr 11/05/18 11/05/18 11/05/18 01:00 01:15 01:30 Pulse Rate 100 H 100 H 100 H Pulse Rate [ From Monitor] Respiratory 31 H 30 H 29 H Rate Blood Pressure 115/62 116/66 117/64 O2 Sat by Pulse 96 96 97 Oximetry 11/05/18 11/05/18 11/05/18 01:45 02:00 02:15 Pulse Rate 100 H 101 H 101 H Pulse Rate [ From Monitor] Respiratory 31 H 29 H 29 H Rate Blood Pressure 113/63 113/63 120/65 O2 Sat by Pulse 96 97 97 Oximetry 11/05/18 11/05/18 11/05/18 02:30 02:45 03:00 Pulse Rate 102 H 102 H 102 H Pulse Rate [ From Monitor] Respiratory 30 H 30 H 30 H Rate Blood Pressure 111/64 116/66 121/64 O2 Sat by Pulse 96 96 96 Oximetry 11/05/18 11/05/18 11/05/18 03:15 03:30 03:45 Pulse Rate 102 H 103 H 102 H Pulse Rate [ From Monitor] Respiratory 30 H 31 H 30 H Rate Blood Pressure 111/64 120/67 110/64 O2 Sat by Pulse 95 96 94 Oximetry 11/05/18 11/05/18 11/05/18 04:00 04:15 04:28 Pulse Rate 105 H 100 H 100 H Pulse Rate [ 98 H From Monitor] Respiratory 30 H 30 H Rate Blood Pressure 125/71 113/65 115/66 O2 Sat by Pulse 100 93 94 Oximetry 11/05/18 11/05/18 11/05/18 04:30 04:45 05:00 Pulse Rate 101 H 100 H 103 H Pulse Rate [ From Monitor] Respiratory 30 H 31 H 29 H Rate Blood Pressure 115/66 124/67 85/51 O2 Sat by Pulse 94 94 95 Oximetry 11/05/18 11/05/18 11/05/18 05:15 05:30 05:45 Pulse Rate 102 H 99 H 99 H Pulse Rate [ From Monitor] Respiratory 29 H 29 H 28 H Rate Blood Pressure 103/57 120/64 125/67 O2 Sat by Pulse 95 96 97 Oximetry 11/05/18 11/05/18 11/05/18 06:00 06:15 06:30 Pulse Rate 99 H 98 H 98 H Pulse Rate [ From Monitor] Respiratory 28 H 27 H 29 H Rate Blood Pressure 125/67 123/64 121/65 O2 Sat by Pulse 96 97 97 Oximetry 11/05/18 11/05/18 11/05/18 06:45 07:00 07:15 Pulse Rate 98 H 98 H 97 H Pulse Rate [ From Monitor] Respiratory 26 H 28 H 28 H Rate Blood Pressure 116/63 113/64 109/63 O2 Sat by Pulse 97 97 98 Oximetry 11/05/18 11/05/18 11/05/18 07:28 07:30 07:31 Pulse Rate 96 H 96 H 96 H Pulse Rate [ From Monitor] Respiratory 27 H 26 H Rate Blood Pressure 109/63 118/66 118/66 O2 Sat by Pulse 98 98 98 Oximetry 11/05/18 11/05/18 11/05/18 07:45 08:00 08:15 Pulse Rate 97 H 95 H 96 H Pulse Rate [ From Monitor] Respiratory 22 25 H 28 H Rate Blood Pressure 130/68 113/63 117/65 O2 Sat by Pulse 98 98 98 Oximetry 11/05/18 11/05/18 11/05/18 08:30 08:45 09:00 Pulse Rate 97 H 95 H 93 H Pulse Rate [ From Monitor] Respiratory 27 H 27 H 23 Rate Blood Pressure 122/66 124/66 114/63 O2 Sat by Pulse 98 96 97 Oximetry 11/05/18 11/05/18 11/05/18 09:15 09:30 09:45 Pulse Rate 93 H 93 H 94 H Pulse Rate [ From Monitor] Respiratory 24 25 H 25 H Rate Blood Pressure 113/61 120/67 127/68 O2 Sat by Pulse 96 97 97 Oximetry 11/05/18 11/05/18 11/05/18 10:00 10:15 10:30 Pulse Rate 91 H 91 H 90 Pulse Rate [ From Monitor] Respiratory 24 26 H 26 H Rate Blood Pressure 121/64 133/73 123/76 O2 Sat by Pulse 98 99 99 Oximetry 11/05/18 11/05/18 11/05/18 10:45 11:00 12:41 Pulse Rate 91 H 90 90 Pulse Rate [ From Monitor] Respiratory 26 H 23 23 Rate Blood Pressure 125/76 135/74 124/68 O2 Sat by Pulse 99 99 98 Oximetry - General Appearance General appearance: well-developed, appears stated age, cachectic, intubated EENT: ATNC Neck: supple Respiratory: Present: Other (coarse breath sounds) Cardiology: regular, S1S2, no murmurs Gastrointestinal: normoactive bowel sounds, no tenderness, no distended Integumentary: ulcer (left LE) Neurologic: obtunded Musculoskeletal: other (Left groin hemodialysis catheter, right AKA, left TMA) - Lab 11/04/18 05:05 11/05/18 06:36 Most recent lab results Calcium 7.8 mg/dL (8.4-10.2) L 11/05/18 06:36 Phosphorus 3.10 mg/dL (2.5-4.5) 11/05/18 06:36 Medications & Allergies - Medications Allergies/Adverse Reactions: Allergies No Known Allergies Allergy (Verified 01/18/18 20:10) Home Medications: Home Medications Medication Instructions Recorded Confirmed Last Taken Type Acetaminophen [Acetaminophen TAB] 650 mg PO Q4H PRN 03/12/18 10/31/18 Unknown History Calcium Acetate [Phoslo] 667 mg PO TID 03/12/18 10/31/18 05/13/18 17:00 History Carvedilol [Coreg] 6.25 mg PO BID 03/12/18 10/31/18 05/13/18 09:00 History Ergocalciferol 50,000 unit PO QWEEK 03/12/18 10/31/18 05/11/18 09:00 History Apixaban [Eliquis] 2.5 mg PO BID tablet 08/21/18 10/31/18 Unknown Rx Megestrol [Megace] 400 mg PO QDAY 10/31/18 10/31/18 Unknown History Mirtazapine [Remeron] 15 mg PO QHS 10/31/18 10/31/18 Unknown History Elaine-José Rx Tablet 1 tab PO QDAY 10/31/18 10/31/18 Unknown History Sodium Bicarbonate 650 mg PO BID 10/31/18 10/31/18 Unknown History traMADol [Ultram 50 MG tab] 25 mg PO Q12H PRN 10/31/18 10/31/18 Unknown History Active Medications: Generic Name Dose Route Start Last Admin Trade Name Freq PRN Reason Stop Dose Admin Acetaminophen 650 mg 11/02/18 09:25 Tylenol FEEDTUBE Q6H PRN Fever >101 Lipase/Protease/Amylase 1 each 11/01/18 10:[address] 10,500 Unit FEEDTUBE PRN PRN For Clogged Feeding Tube Epoetin [place] 20,000 unit 11/05/18 10:21 Procrit SUB-Q ALEJO PRN hemodialysis Famotidine 20 mg 11/01/18 10:00 11/05/18 09:58 Pepcid PO 20 mg DAILY KIRSTEN Administration Heparin Sodium (Porcine) 5,000 unit 10/29/18 22:00 11/04/18 22:15 Heparin SUB-Q 5,000 unit Q8HR KIRSTEN Administration Norepinephrine 4 mg in 250 mls @ 7.5 mls/hr 10/30/18 01:00 11/05/18 05:52 Levophed Drip 4 Mg/Ns 250 Ml IV 8 mcg/min TITR KIRSTEN 30 mls/hr Administration Protocol 2 MCG/MIN Sodium Chloride 100 mls @ 999 mls/hr 11/01/18 09:22 Nacl 0.9% IV ALEJO PRN Hypotension Cefepime HCl 1 gm in 100 mls @ 200 mls/hr 11/02/18 18:00 11/04/18 17:16 Maxipime/Ns 1 Gm/100 Ml IV 200 mls/hr QPM KIRSTEN Administration Protocol Sodium Chloride 100 mls @ 999 mls/hr 11/05/18 08:53 Nacl 0.9% IV ALEJO PRN Hypotension Vancomycin HCl 500 mg/ Sodium 110 mls @ 66.667 mls/hr 11/05/18 20:00 Chloride IV 11/05/18 21:38 ONCE ONE Insulin Human Lispro 0 unit 10/30/18 10:00 11/05/18 06:00 Humalog SUB-Q 4 unit Q6HR KIRSTEN Administration Protocol Simple Syrup 15 ml 11/01/18 10:04 Simple Syrup FEEDTUBE PRN PRN Hypoglycemia Simple Syrup 30 ml 11/01/18 10:04 Simple Syrup FEEDTUBE PRN PRN Hypoglycemia Sodium Bicarbonate 325 mg 11/01/18 10:04 Sodium Bicarbonate FEEDTUBE PRN PRN For Clogged Feeding Tube
[2018-11-05] MEDS: HEPARIN SUB-Q SCH ×3 (12:50→22:11)
[2018-11-05] MEDS ORDERED: NACL 0.9% 1000 ML 2,000 ML ONE (18:13)
[2018-11-05] MEDS: PROCRIT SUB-Q PRN (18:44)
--- NOTE | 2018-11-05 19:53 | Progress Note ---
Assessment and Plan - Patient Problems (1) Altered mental status Current Visit: Yes Status: Acute Qualifiers: Altered mental status type: unspecified Qualified Code(s): R41.82 - Altered mental status, unspecified Plan to address problem: most likely due to sinus infectionfollow ID. (2) Hyperkalemia Current Visit: Yes Status: Acute Plan to address problem: Treated, and continue to correct with HD. corrected. (3) Hypernatremia Current Visit: Yes Status: Acute Plan to address problem: correct with HD. As above when feasible with the Renal service. patient continues with HD. (4) Uremia Current Visit: Yes Status: Acute Plan to address problem: treat underlying cause. Follow Renal. (5) Acute encephalopathy Current Visit: Yes Status: Chronic Plan to address problem: supportive care. (6) ESRD needing dialysis Current Visit: Yes Status: Chronic (7) Sepsis Current Visit: Yes Status: Acute Subjective Date of service: 11/05/18 Principal diagnosis: sepsis, acute resp, failure. Interval history: Patient seen/examined,in the ICU. I have spoken to the daughter, and his sister today, regarding plan of care, and prognosis. I have rec less aggressive path, including hospice. They will think about it ,and let me know. Mean while, will continue current management. His prognosis is quite poor at this time. Patient seen/examined, resting in bed, labs reviewed.Still on the vent.If unable to be weaned off the vent, on timely /expected time, will push for LTAC eval/placement at [facility].[email or web address] to start preparing for this possibility. Patient seen/examined, resting in bed, still not wean able yet.He had HD today. patient seen/examined, resting in bed. labs/records/notes reviewed, including ID consult notes. Cxr with PNA., 24hr Tm 102. Patient seen/examined, resting in bed, NR, BP low, and Levo increased back up ,to maintain any appreciable reading. Labs reviewed. I have discussed/updated the daughter Ramón today, discussed code status again, and prognosis,as well as long time plan/disposition.She has signed a Do NOT Resuscitate, and the other family member suppose to sign hers today, or tomorrow. I have recommended, and she is in agreement to the LTAC placement at [facility], where he can also get trached, if, and when feasible. I want the case worker to act on this on timely manner.MRSA positive in the sputum.ID on the case. Patient seen/examined, resting in bed, labs reviewed. Patient is now an AND status.Plan for LTAC refferal by the case worker, I have spoken to the family about [facility] LTAC, and she was in agreement. patient seen/examined, resting in bed, records reviewed, case d/w Dr Garcia.I had already spoken to the primary daughter about LTAC this past week, and she was in agreement. I do not think patient has to be trached/peg here before d/c, and transfer to the LTAC, both the patient, and family will have ample time to think tis over ,if /when it comes to that.I will however continue to speak to them. PLs read notes, so we can all be on the same plan for disposition. Objective - Constitutional Vitals: Vital Signs - 12hr 11/05/18 11/05/18 11/05/18 08:00 08:15 08:30 Temperature Pulse Rate 95 H 96 H 97 H Respiratory 25 H 28 H 27 H Rate Blood Pressure 113/63 117/65 122/66 O2 Sat by Pulse 98 98 98 Oximetry O2 Sat by Pulse Oximetry [ Bilateral Lower Lobe] 11/05/18 11/05/18 11/05/18 08:45 09:00 09:15 Temperature Pulse Rate 95 H 93 H 93 H Respiratory 27 H 23 24 Rate Blood Pressure 124/66 114/63 113/61 O2 Sat by Pulse 96 97 96 Oximetry O2 Sat by Pulse Oximetry [ Bilateral Lower Lobe] 11/05/18 11/05/18 11/05/18 09:30 09:45 10:00 Temperature Pulse Rate 93 H 94 H 91 H Respiratory 25 H 25 H 24 Rate Blood Pressure 120/67 127/68 121/64 O2 Sat by Pulse 97 97 98 Oximetry O2 Sat by Pulse Oximetry [ Bilateral Lower Lobe] 11/05/18 11/05/18 11/05/18 10:15 10:30 10:45 Temperature Pulse Rate 91 H 90 91 H Respiratory 26 H 26 H 26 H Rate Blood Pressure 133/73 123/76 125/76 O2 Sat by Pulse 99 99 99 Oximetry O2 Sat by Pulse Oximetry [ Bilateral Lower Lobe] 11/05/18 11/05/18 11/05/18 11:00 11:15 11:30 Temperature Pulse Rate 90 92 H 89 Respiratory 23 21 23 Rate Blood Pressure 135/74 135/76 126/72 O2 Sat by Pulse 99 99 98 Oximetry O2 Sat by Pulse Oximetry [ Bilateral Lower Lobe] 11/05/18 11/05/18 11/05/18 11:45 12:00 12:15 Temperature 96.9 F L Pulse Rate 91 H 90 89 Respiratory 23 24 22 Rate Blood Pressure 133/76 131/73 136/69 O2 Sat by Pulse 99 99 98 Oximetry O2 Sat by Pulse Oximetry [ Bilateral Lower Lobe] 11/05/18 11/05/18 11/05/18 12:30 12:41 12:45 Temperature Pulse Rate 89 90 89 Respiratory 21 23 23 Rate Blood Pressure 124/68 124/68 128/72 O2 Sat by Pulse 98 98 98 Oximetry O2 Sat by Pulse Oximetry [ Bilateral Lower Lobe] 11/05/18 11/05/18 11/05/18 13:00 13:15 13:30 Temperature Pulse Rate 89 93 H 93 H Respiratory 23 25 H 24 Rate Blood Pressure 133/73 101/56 98/55 O2 Sat by Pulse 98 97 98 Oximetry O2 Sat by Pulse Oximetry [ Bilateral Lower Lobe] 11/05/18 11/05/18 11/05/18 13:45 14:00 14:15 Temperature Pulse Rate 92 H 92 H 94 H Respiratory 24 25 H 23 Rate Blood Pressure 95/53 97/54 101/56 O2 Sat by Pulse 99 98 98 Oximetry O2 Sat by Pulse Oximetry [ Bilateral Lower Lobe] 11/05/18 11/05/18 11/05/18 14:30 14:45 15:00 Temperature Pulse Rate 92 H 92 H 91 H Respiratory 23 21 21 Rate Blood Pressure 106/58 100/60 112/64 O2 Sat by Pulse 99 99 99 Oximetry O2 Sat by Pulse Oximetry [ Bilateral Lower Lobe] 11/05/18 11/05/18 11/05/18 15:15 15:30 15:45 Temperature Pulse Rate 91 H 95 H 93 H Respiratory 21 16 22 Rate Blood Pressure 110/64 123/70 107/61 O2 Sat by Pulse 99 97 95 Oximetry O2 Sat by Pulse Oximetry [ Bilateral Lower Lobe] 11/05/18 11/05/18 11/05/18 16:00 16:10 16:15 Temperature 98.9 F Pulse Rate 91 H 91 H 90 Respiratory 21 22 21 Rate Blood Pressure 105/60 105/60 110/62 O2 Sat by Pulse 95 95 Oximetry O2 Sat by Pulse 98 Oximetry [ Bilateral Lower Lobe] 11/05/18 11/05/18 11/05/18 16:30 16:45 16:52 Temperature Pulse Rate 91 H 93 H 94 H Respiratory 23 22 21 Rate Blood Pressure 118/64 113/64 113/64 O2 Sat by Pulse 97 98 98 Oximetry O2 Sat by Pulse Oximetry [ Bilateral Lower Lobe] 11/05/18 11/05/18 11/05/18 17:00 17:15 17:30 Temperature 97.5 F L Pulse Rate 93 H 93 H 94 H Respiratory 24 21 23 Rate Blood Pressure 96/59 98/65 105/69 O2 Sat by Pulse 98 98 99 Oximetry O2 Sat by Pulse Oximetry [ Bilateral Lower Lobe] 11/05/18 11/05/18 11/05/18 17:45 18:00 18:15 Temperature Pulse Rate 95 H 92 H 93 H Respiratory 22 23 23 Rate Blood Pressure 110/67 108/67 116/68 O2 Sat by Pulse 100 100 100 Oximetry O2 Sat by Pulse Oximetry [ Bilateral Lower Lobe] 11/05/18 11/05/18 11/05/18 18:30 18:45 19:00 Temperature Pulse Rate 94 H 98 H 97 H Respiratory 23 Rate Blood Pressure 115/64 116/68 100/56 O2 Sat by Pulse 98 Oximetry O2 Sat by Pulse Oximetry [ Bilateral Lower Lobe] 11/05/18 11/05/18 19:15 19:40 Temperature 98.9 F Pulse Rate 98 H 99 H Respiratory 31 H Rate Blood Pressure 115/65 130/74 O2 Sat by Pulse Oximetry O2 Sat by Pulse 91 Oximetry [ Bilateral Lower Lobe] General appearance: Present: mild distress, cachectic - EENT Eyes: PERRL, EOM intact ENT: hearing intact, clear oral mucosa Ears: bilateral: normal - Respiratory Respiratory: bilateral: other (remains on the vent.) - Breasts Breasts: deferred - Cardiovascular Rhythm: regular Heart Sounds: Present: S1 & S2. Absent: gallop, rub Extremities: pulses intact, No edema, normal color, Full ROM - Gastrointestinal General gastrointestinal: Present: soft, non-tender, non-distended, normal bowel sounds Rectal Exam: deferred - Genitourinary Male genitourinary: deferred - Integumentary Integumentary: clear, warm, dry - Musculoskeletal Musculoskeletal: 1, strength equal bilaterally - Neurologic Neurologic: moves all extremities - Labs CBC & Chem 7: 11/04/18 05:05 11/05/18 06:36 Labs: Abnormal lab results 11/04/18 11/05/18 11/05/18 Range/Units 22:36 05:07 05:42 POC ABG pCO2 30.1 L (35-45) POC ABG pO2 63 L (80-105) Sodium (137-145) mmol/L Potassium (3.6-5.0) mmol/L Carbon Dioxide (22-30) mmol/L BUN (9-20) mg/dL Creatinine (0.8-1.5) mg/dL Glucose (75-100) mg/dL POC Glucose 159 H 233 H (70-105) Calcium (8.4-10.2) mg/dL 11/05/18 11/05/18 11/05/18 Range/Units 06:36 12:54 19:36 POC ABG pCO2 (35-45) POC ABG pO2 (80-105) Sodium 134 L (137-145) mmol/L Potassium 3.4 L (3.6-5.0) mmol/L Carbon Dioxide 18 L (22-30) mmol/L BUN 93 H (9-20) mg/dL Creatinine 3.7 H (0.8-1.5) mg/dL Glucose 230 H (75-100) mg/dL POC Glucose 237 H 174 H (70-105) Calcium 7.8 L (8.4-10.2) mg/dL Medications & Allergies - Medications Allergies/Adverse Reactions: Allergies No Known Allergies Allergy (Verified 01/18/18 20:10) Home Medications: Home Medications Medication Instructions Recorded Confirmed Last Taken Type Acetaminophen [Acetaminophen TAB] 650 mg PO Q4H PRN 03/12/18 10/31/18 Unknown History Calcium Acetate [Phoslo] 667 mg PO TID 03/12/18 10/31/18 05/13/18 17:00 History Carvedilol [Coreg] 6.25 mg PO BID 03/12/18 10/31/18 05/13/18 09:00 History Ergocalciferol 50,000 unit PO QWEEK 03/12/18 10/31/1818 09:00 History Apixaban [Eliquis] 2.5 mg PO BID tablet 08/21/18 10/31/18 Unknown Rx Megestrol [Megace] 400 mg PO QDAY 10/31/18 10/31/18 Unknown History Mirtazapine [Remeron] 15 mg PO QHS 10/31/18 10/31/18 Unknown History Elaine-José Rx Tablet 1 tab PO QDAY 10/31/18 10/31/18 Unknown History Sodium Bicarbonate 650 mg PO BID 10/31/18 10/31/18 Unknown History traMADol [Ultram 50 MG tab] 25 mg PO Q12H PRN 10/31/18 10/31/18 Unknown History Active Medications: Generic Name Dose Route Start Last Admin Trade Name Freq PRN Reason Stop Dose Admin Acetaminophen 650 mg 11/02/18 09:25 Tylenol FEEDTUBE Q6H PRN Fever >101 Lipase/Protease/Amylase 1 each 11/01/18 10:[address] 10,500 Unit FEEDTUBE PRN PRN For Clogged Feeding Tube E[place]etin [place] 20,000 unit 11/05/18 10:21 11/05/18 18:44 Procrit SUB-Q 20,000 unit ALEJO PRN Administration hemodialysis Famotidine 20 mg 11/01/18 10:00 11/05/18 09:58 Pepcid PO 20 mg DAILY KIRSTEN Administration Heparin Sodium (Porcine) 5,000 unit 10/29/18 22:00 11/05/18 13:23 Heparin SUB-Q 5,000 unit Q8HR KIRSTEN Administration Norepinephrine 4 mg in 250 mls @ 7.5 mls/hr 10/30/18 01:00 11/05/18 18:57 Levophed Drip 4 Mg/Ns 250 Ml IV Infused TITR KIRSTEN Titration Protocol 2 MCG/MIN Sodium Chloride 100 mls @ 999 mls/hr 11/01/18 09:22 Nacl 0.9% IV ALEJO PRN Hypotension Cefepime HCl 1 gm in 100 mls @ 200 mls/hr 11/02/18 18:00 11/04/18 17:16 Maxipime/Ns 1 Gm/100 Ml IV 200 mls/hr QPM KIRSTEN Administration Protocol Sodium Chloride 100 mls @ 999 mls/hr 11/05/18 08:53 Nacl 0.9% IV ALEJO PRN Hypotension Vancomycin HCl 500 mg/ Sodium 110 mls @ 66.667 mls/hr 11/05/18 20:00 Chloride IV 11/05/18 21:38 ONCE ONE Insulin Human Lispro 0 unit 10/30/18 10:00 11/05/18 19:35 Humalog SUB-Q 3 unit Q6HR KIRSTEN Administration Protocol Simple Syrup 15 ml 11/01/18 10:04 Simple Syrup FEEDTUBE PRN PRN Hypoglycemia Simple Syrup 30 ml 11/01/18 10:04 Simple Syrup FEEDTUBE PRN PRN Hypoglycemia Sodium Bicarbonate 325 mg 11/01/18 10:04 Sodium Bicarbonate FEEDTUBE PRN PRN For Clogged Feeding Tube
[2018-11-05] MEDS ORDERED: VANCOMYCIN 500 MG in NACL 0.9% 100 ML IV ONE (20:00)
[2018-11-06] MEDS: HumaLOG SUB-Q SCH ×4 (00:04→17:56)
[2018-11-06] MEDS: LEVOPHED DRIP 4 MG/NS 250 ML 4 MG/250 ML BAG IV SCH ×2 (00:38→17:56)
[2018-11-06] MEDS: HEPARIN SUB-Q SCH ×3 (05:55→21:56)
[2018-11-06 08:07] LABS: Hematocrit 27.9 % (35.5-45.6); Hemoglobin 9.3 gm/dl (11.8-15.2); Mean Corpuscular HGB Conc 33 % (32-34); Mean Corpuscular Volume 99 fl (84-94); Platelet Count 133 K/mm3 (140-440); Red Blood Count 2.83 M/mm3 (3.65-5.03); Red Cell Distribution Width 15.9 % (13.2-15.2)
[2018-11-06 08:23] LABS: Calcium 7.4 mg/dL (8.4-10.2)
[2018-11-06] MEDS: MAXIPIME/NS 1 GM/100 ML 1 GM/100 ML BAG IV SCH (08:55)
--- NOTE | 2018-11-06 09:30 | Progress Note ---
Assessment and Plan -s/p PEA arrest -Severe sepsis with septic shock -Fevers, Tracheal aspirate positive for MRSA -Acute hypoxic respiratory failure on MVS -Acute encephalopathy( toxic, metabolic) -Severe protein calorie malnutrition -Hyperkalemia( resolved) -ESRD on HD, clotted graft femoral HD catheter -Hyperosmolar hyperglycemic state( improving) -Hypotension, multifactorial, -Hypernatremia, resolved -PVD s/p right BKA -Prostate cancer s/p suprapubic catheter -Continue with MVS -With lateral gaze, get EEG -Lung protective strategies -VAP bundle addressed. -Supplemental oxygen, wean for O2 sats>90% -Daily SBTs as tolerated -VTE prophylaxis( heparin) -Stress ulcer prophylaxis( Famotidine) -Tube feedings with aspiration precautions -Glycemic control, target blood glucose of 140-180mg/dL -Free water flushes - Continue wound care by wound care team -Supportive HD -Wean vasopressor support for MAP>65 -Volume resuscitation CONDITION: CRITICAL PROGNOSIS: GUARDED CODE STATUS: DNAR I have spent 35 minutes in the direct care of this critically ill patient, excluding procedure time. Critical care time was spent on this patient and during his initial evaluation, multiple re-evaluations, ordering and interpretation of labs and imaging, medications, discussion with the ICU care team. There is a high probability of clinically significant, sudden, or life- threatening deterioration that has required multiple evaluations and direct attention, intervention, and management. Subjective Date of service: 11/06/18 Principal diagnosis: sepsis, acute resp, failure. Interval history: Patient is seen today for: Acute hypoxemic respiratory failure on MVS; Severe sepsis with septic shock; acute encephaloapthy; Seen and examined at bedside; 24hour events reviewed; nursing and respiratory care staff consulted; No fevers overnight, remains on norepinephrine for hemodynamic support Remains unresponsive, on mechanical ventilatory support, no dys-synchrony Vent AC- 18/350/6/25% ABG 7.424/31.7/74/20.8 Objective - Exam Narrative Exam: Physical Exam: Constitutional: unresponsive. on mechnaical ventilatory support Head, Ears, Nose: Normocephalic, atraumatic. External ears, nose normal. Eyes: Conjunctivae/corneas clear. No icterus. No ptosis. Neck: trach + Cardiovascular: S1, S2 normal. Respiratory: Good air entry, clear to auscultation bilaterally GI: Soft, bowel sounds +. PEG + Suprapubic catheter + Musculoskeletal: Right AKA, left TMA stumps healed. Right gluteal region with eschar. Left femoral trialysis cath +. Edema + Skin: No rash or abscess Hem/Lymphatic: No palpable cervical or supraclavicular nodes. No lymphangitis Psych: no agitation Neurological: unresponsive, intubated, on vent. Vital Signs - 12hr 11/05/18 11/05/18 11/05/18 21:45 22:00 22:16 Temperature Pulse Rate 112 H 115 H 120 H Respiratory 29 H 28 H 27 H Rate Blood Pressure 113/62 119/59 103/61 O2 Sat by Pulse 94 94 95 Oximetry 11/05/18 11/05/18 11/05/18 22:30 22:45 23:00 Temperature Pulse Rate 121 H 120 H 118 H Respiratory 27 H 27 H 18 Rate Blood Pressure 123/63 123/63 118/56 O2 Sat by Pulse 94 94 94 Oximetry 11/05/18 11/05/18 11/05/18 23:12 23:15 23:30 Temperature 97.9 F Pulse Rate 117 H 114 H 117 H Respiratory 20 22 21 Rate Blood Pressure 118/56 106/54 99/62 O2 Sat by Pulse 94 94 96 Oximetry 11/05/18 11/06/18 11/06/18 23:45 00:00 00:15 Temperature Pulse Rate 117 H 116 H 115 H Respiratory 24 22 25 H Rate Blood Pressure 90/60 96/58 90/60 O2 Sat by Pulse 98 98 98 Oximetry 11/06/18 11/06/18 11/06/18 00:30 00:45 00:51 Temperature Pulse Rate 118 H 116 H 119 H Respiratory 28 H 22 Rate Blood Pressure 92/54 123/69 123/69 O2 Sat by Pulse 98 98 98 Oximetry 11/06/18 11/06/18 11/06/18 01:00 01:15 01:30 Temperature Pulse Rate 117 H 117 H 112 H Respiratory 25 H 27 H 24 Rate Blood Pressure 139/73 139/73 91/54 O2 Sat by Pulse 98 98 98 Oximetry 11/06/18 11/06/18 11/06/18 01:45 02:00 02:15 Temperature Pulse Rate 111 H 116 H 116 H Respiratory 23 23 25 H Rate Blood Pressure 99/48 91/59 98/56 O2 Sat by Pulse 98 98 97 Oximetry 11/06/18 11/06/18 11/06/18 02:30 02:45 03:00 Temperature Pulse Rate 115 H 114 H 116 H Respiratory 26 H 24 26 H Rate Blood Pressure 107/55 97/49 101/58 O2 Sat by Pulse 98 98 98 Oximetry 11/06/18 11/06/18 11/06/18 03:15 03:16 03:30 Temperature 99.8 F H Pulse Rate 117 H 113 H Respiratory 26 H 26 H Rate Blood Pressure 92/59 107/56 O2 Sat by Pulse 98 98 Oximetry 11/06/18 11/06/18 11/06/18 03:45 04:00 04:15 Temperature Pulse Rate 113 H 112 H 110 H Respiratory 26 H 26 H 26 H Rate Blood Pressure 92/53 100/58 90/51 O2 Sat by Pulse 98 97 98 Oximetry 11/06/18 11/06/18 11/06/18 04:16 04:30 04:45 Temperature Pulse Rate 112 H 109 H 108 H Respiratory 26 H 24 Rate Blood Pressure 90/51 94/52 86/49 O2 Sat by Pulse 98 98 98 Oximetry 11/06/18 11/06/18 11/06/18 05:00 05:15 05:30 Temperature Pulse Rate 109 H 107 H 109 H Respiratory 24 25 H 23 Rate Blood Pressure 86/49 80/52 91/61 O2 Sat by Pulse 99 99 100 Oximetry 11/06/18 11/06/18 11/06/18 05:46 06:00 06:15 Temperature Pulse Rate 106 H 106 H 105 H Respiratory 24 24 24 Rate Blood Pressure 113/60 118/60 100/54 O2 Sat by Pulse 100 100 99 Oximetry 11/06/18 11/06/18 11/06/18 06:30 06:45 07:00 Temperature Pulse Rate 103 H 103 H 103 H Respiratory 23 22 26 H Rate Blood Pressure 94/53 108/56 118/59 O2 Sat by Pulse 99 99 100 Oximetry 11/06/18 11/06/18 11/06/18 07:15 07:30 07:46 Temperature Pulse Rate 105 H 105 H 102 H Respiratory 25 H 24 25 H Rate Blood Pressure 115/64 120/66 115/64 O2 Sat by Pulse 99 100 99 Oximetry 04/09/19 04/09/19 04/09/19 08:00 08:16 08:25 Temperature 99.6 F Pulse Rate 101 H 100 H 103 H Respiratory 23 22 Rate Blood Pressure 115/64 120/66 O2 Sat by Pulse 99 99 100 Oximetry 11/06/18 11/06/18 11/06/18 08:28 08:30 08:46 Temperature Pulse Rate 104 H 102 H 101 H Respiratory 19 24 24 Rate Blood Pressure 120/66 120/66 O2 Sat by Pulse 100 100 100 Oximetry CBC and BMP: 11/16/18 05:45 11/16/18 05:45 ABG, PT/INR, D-dimer: ABG POC ABG pH 7.443 (7.35-7.45) 11/06/18 04:33 POC ABG pCO2 32.4 (35-45) L 11/06/18 04:33 POC ABG pO2 73 (80-105) L 11/06/18 04:33 POC ABG HCO3 22.2 (22-26 mml/L) 11/06/18 04:33 POC ABG Total CO2 23 (23-27mmol/L) 11/06/18 04:33 POC ABG O2 Sat 95 11/06/18 04:33 Abnormal lab findings: Abnormal Labs 10/29/18 10/29/18 10/29/18 17:13 17:13 17:13 RBC 3.62 L Hgb Hct MCV 102 H MCH 34 H RDW 19.6 H Plt Count [place] % (Auto) 7.8 H Seg Neutrophils % 71.2 H Seg Neuts % (Manual) Lymphocytes % (Manual) Lymphocytes # (Manual) POC ABG pH POC ABG pCO2 POC ABG pO2 Sodium 164 H* Potassium 6.2 H* Chloride 127.5 H Carbon Dioxide BUN 178 H Creatinine 4.2 H Glucose 131 H POC Glucose Calcium 10.7 H C-Reactive Protein Total Protein 9.5 H Albumin 2.6 L TSH 5.310 H Urine pH Urine WBC (Auto) Vancomycin Trough 10/29/18 10/30/18 10/30/18 23:57 00:06 04:35 RBC Hgb Hct MCV MCH RDW Plt Count [place] % (Auto) Seg Neutrophils % Seg Neuts % (Manual) Lymphocytes % (Manual) Lymphocytes # (Manual) POC ABG pH 7.488 H POC ABG pCO2 32.1 L 34.9 L POC ABG pO2 144 H Sodium Potassium Chloride Carbon Dioxide BUN Creatinine Glucose POC Glucose 131 H Calcium C-Reactive Protein Total Protein Albumin TSH Urine pH Urine WBC (Auto) Vancomycin Trough 10/30/18 10/30/18 10/30/18 05:13 08:54 08:54 RBC 3.56 L Hgb 11.7 L Hct MCV 102 H MCH 33 H RDW 19.2 H Plt Count [place] % (Auto) Seg Neutrophils % Seg Neuts % (Manual) Lymphocytes % (Manual) Lymphocytes # (Manual) POC ABG pH POC ABG pCO2 POC ABG pO2 Sodium Potassium Chloride Carbon Dioxide BUN Creatinine Glucose POC Glucose 316 H Calcium C-Reactive Protein 5.20 H Total Protein Albumin 2.2 L TSH Urine pH Urine WBC (Auto) Vancomycin Trough 10/30/18 10/30/18 10/30/18 08:59 12:03 18:30 RBC Hgb Hct MCV MCH RDW Plt Count [place] % (Auto) Seg Neutrophils % Seg Neuts % (Manual) Lymphocytes % (Manual) Lymphocytes # (Manual) POC ABG pH POC ABG pCO2 POC ABG pO2 Sodium 146 H D Potassium Chloride Carbon Dioxide BUN 86 H Creatinine 2.7 H Glucose 262 H POC Glucose 232 H 57 L Calcium C-Reactive Protein Total Protein Albumin TSH Urine pH Urine WBC (Auto) Vancomycin Trough 10/30/18 10/30/18 10/30/18 18:39 19:07 19:42 RBC Hgb Hct MCV MCH RDW Plt Count [place] % (Auto) Seg Neutrophils % Seg Neuts % (Manual) Lymphocytes % (Manual) Lymphocytes # (Manual) POC ABG pH POC ABG pCO2 POC ABG pO2 Sodium Potassium Chloride Carbon Dioxide BUN Creatinine Glucose POC Glucose < 40 L 51 L Calcium C-Reactive Protein Total Protein Albumin TSH Urine pH 8.0 H Urine WBC (Auto) > 182.0 H Vancomycin Trough 10/30/18 10/30/18 10/30/18 19:51 23:13 23:20 RBC Hgb Hct MCV MCH RDW Plt Count [place] % (Auto) Seg Neutrophils % Seg Neuts % (Manual) Lymphocytes % (Manual) Lymphocytes # (Manual) POC ABG pH POC ABG pCO2 POC ABG pO2 Sodium Potassium Chloride 108.5 H Carbon Dioxide 21 L BUN 96 H Creatinine 3.0 H Glucose 865 H* 150 H POC Glucose 152 H Calcium C-Reactive Protein Total Protein Albumin TSH Urine pH Urine WBC (Auto) Vancomycin Trough 10/30/18 10/31/18 10/31/18 23:40 04:43 04:43 RBC Hgb Hct MCV 100 H MCH 33 H RDW 18.1 H Plt Count [place] % (Auto) Seg Neutrophils % Seg Neuts % (Manual) Lymphocytes % (Manual) 4.0 L Lymphocytes # (Manual) 0.3 L POC ABG pH POC ABG pCO2 POC ABG pO2 Sodium Potassium Chloride Carbon Dioxide 19 L BUN 98 H Creatinine 3.2 H Glucose 184 H POC Glucose 145 H Calcium C-Reactive Protein Total Protein Albumin TSH Urine pH Urine WBC (Auto) Vancomycin Trough 10/31/18 10/31/18 10/31/18 05:44 11:44 13:19 RBC Hgb Hct MCV MCH RDW Plt Count [place] % (Auto) Seg Neutrophils % Seg Neuts % (Manual) Lymphocytes % (Manual) Lymphocytes # (Manual) POC ABG pH POC ABG pCO2 POC ABG pO2 64 L Sodium Potassium Chloride Carbon Dioxide BUN Creatinine Glucose POC Glucose 142 H 196 H Calcium C-Reactive Protein Total Protein Albumin TSH Urine pH Urine WBC (Auto) Vancomycin Trough 10/31/18 11/01/18 11/01/18 17:36 04:07 04:07 RBC 3.40 L Hgb 11.2 L Hct 33.6 L MCV 99 H MCH 33 H RDW 17.5 H Plt Count [place] % (Auto) Seg Neutrophils % Seg Neuts % (Manual) 80.0 H Lymphocytes % (Manual) 4.0 L Lymphocytes # (Manual) 0.3 L POC ABG pH POC ABG pCO2 POC ABG pO2 Sodium Potassium Chloride Carbon Dioxide 19 L BUN 108 H Creatinine 3.9 H Glucose 138 H POC Glucose 174 H Calcium 7.9 L C-Reactive Protein Total Protein Albumin TSH Urine pH Urine WBC (Auto) Vancomycin Trough 11/01/18 11/01/18 11/01/18 05:24 05:36 13:09 RBC Hgb Hct MCV MCH RDW Plt Count [place] % (Auto) Seg Neutrophils % Seg Neuts % (Manual) Lymphocytes % (Manual) Lymphocytes # (Manual) POC ABG pH POC ABG pCO2 POC ABG pO2 65 L Sodium Potassium Chloride Carbon Dioxide BUN Creatinine Glucose POC Glucose 153 H 249 H Calcium C-Reactive Protein Total Protein Albumin TSH Urine pH Urine WBC (Auto) Vancomycin Trough 11/01/18 11/02/18 11/02/18 18:11 05:04 07:17 RBC 3.08 L Hgb 10.1 L Hct 30.1 L MCV 98 H MCH 33 H RDW 16.7 H Plt Count [place] % (Auto) Seg Neutrophils % Seg Neuts % (Manual) 92.0 H Lymphocytes % (Manual) 3.0 L Lymphocytes # (Manual) 0.2 L POC ABG pH POC ABG pCO2 POC ABG pO2 Sodium Potassium Chloride Carbon Dioxide BUN Creatinine Glucose POC Glucose 175 H 118 H Calcium C-Reactive Protein Total Protein Albumin TSH Urine pH Urine WBC (Auto) Vancomycin Trough 11/02/18 11/02/18 11/02/18 07:54 09:32 12:28 RBC Hgb Hct MCV MCH RDW Plt Count [place] % (Auto) Seg Neutrophils % Seg Neuts % (Manual) Lymphocytes % (Manual) Lymphocytes # (Manual) POC ABG pH 7.514 H POC ABG pCO2 POC ABG pO2 70 L Sodium 135 L Potassium Chloride Carbon Dioxide BUN 48 H Creatinine 2.2 H Glucose 170 H POC Glucose 242 H Calcium 7.4 L C-Reactive Protein Total Protein Albumin TSH Urine pH Urine WBC (Auto) Vancomycin Trough 11/02/18 11/03/18 11/03/18 23:32 04:34 05:10 RBC 2.87 L Hgb 9.4 L Hct 28.5 L MCV 99 H MCH 33 H RDW 16.7 H Plt Count [place] % (Auto) Seg Neutrophils % Seg Neuts % (Manual) 91.0 H Lymphocytes % (Manual) 4.0 L Lymphocytes # (Manual) 0.3 L POC ABG pH POC ABG pCO2 33.2 L POC ABG pO2 76 L Sodium Potassium Chloride Carbon Dioxide BUN Creatinine Glucose POC Glucose 177 H Calcium C-Reactive Protein Total Protein Albumin TSH Urine pH Urine WBC (Auto) Vancomycin Trough 11/03/18 11/03/18 11/03/18 06:04 12:26 18:43 RBC Hgb Hct MCV MCH RDW Plt Count [place] % (Auto) Seg Neutrophils % Seg Neuts % (Manual) Lymphocytes % (Manual) Lymphocytes # (Manual) POC ABG pH POC ABG pCO2 POC ABG pO2 Sodium Potassium Chloride Carbon Dioxide BUN Creatinine Glucose POC Glucose 168 H 196 H 153 H Calcium C-Reactive Protein Total Protein Albumin TSH Urine pH Urine WBC (Auto) Vancomycin Trough 11/03/18 11/04/18 11/04/18 23:34 03:50 05:05 RBC 2.74 L Hgb 9.1 L Hct 27.3 L MCV 99 H MCH 33 H RDW 16.5 H Plt Count [place] % (Auto) Seg Neutrophils % Seg Neuts % (Manual) 87.0 H Lymphocytes % (Manual) 7.0 L Lymphocytes # (Manual) 0.5 L POC ABG pH POC ABG pCO2 31.7 L POC ABG pO2 74 L Sodium Potassium Chloride Carbon Dioxide BUN Creatinine Glucose POC Glucose 213 H Calcium C-Reactive Protein Total Protein Albumin TSH Urine pH Urine WBC (Auto) Vancomycin Trough 11/04/18 11/04/18 11/04/18 05:05 05:23 12:26 RBC Hgb Hct MCV MCH RDW Plt Count [place] % (Auto) Seg Neutrophils % Seg Neuts % (Manual) Lymphocytes % (Manual) Lymphocytes # (Manual) POC ABG pH POC ABG pCO2 POC ABG pO2 Sodium Potassium Chloride Carbon Dioxide BUN 84 H Creatinine 3.3 H Glucose 177 H POC Glucose 196 H 182 H Calcium 7.6 L C-Reactive Protein Total Protein Albumin TSH Urine pH Urine WBC (Auto) Vancomycin Trough 11/04/18 11/04/18 11/05/18 13:25 22:36 05:07 RBC Hgb Hct MCV MCH RDW Plt Count [place] % (Auto) Seg Neutrophils % Seg Neuts % (Manual) Lymphocytes % (Manual) Lymphocytes # (Manual) POC ABG pH POC ABG pCO2 30.1 L POC ABG pO2 63 L Sodium Potassium Chloride Carbon Dioxide BUN Creatinine Glucose POC Glucose 159 H Calcium C-Reactive Protein Total Protein Albumin TSH Urine pH Urine WBC (Auto) Vancomycin Trough 4.4 L 11/05/18 11/05/18 11/05/18 05:42 06:36 12:54 RBC Hgb Hct MCV MCH RDW Plt Count [place] % (Auto) Seg Neutrophils % Seg Neuts % (Manual) Lymphocytes % (Manual) Lymphocytes # (Manual) POC ABG pH POC ABG pCO2 POC ABG pO2 Sodium 134 L Potassium 3.4 L Chloride Carbon Dioxide 18 L BUN 93 H Creatinine 3.7 H Glucose 230 H POC Glucose 233 H 237 H Calcium 7.8 L C-Reactive Protein Total Protein Albumin TSH Urine pH Urine WBC (Auto) Vancomycin Trough 11/05/18 11/05/18 11/06/18 19:36 23:35 01:59 RBC Hgb Hct MCV MCH RDW Plt Count [place] % (Auto) Seg Neutrophils % Seg Neuts % (Manual) Lymphocytes % (Manual) Lymphocytes # (Manual) POC ABG pH POC ABG pCO2 POC ABG pO2 Sodium Potassium Chloride Carbon Dioxide BUN Creatinine Glucose POC Glucose 174 H 56 L 112 H Calcium C-Reactive Protein Total Protein Albumin TSH Urine pH Urine WBC (Auto) Vancomycin Trough 11/06/18 11/06/18 11/06/18 04:33 05:06 07:24 RBC 2.83 L Hgb 9.3 L Hct 27.9 L MCV 99 H MCH 33 H RDW 15.9 H Plt Count 133 L [place] % (Auto) Seg Neutrophils % Seg Neuts % (Manual) Lymphocytes % (Manual) Lymphocytes # (Manual) POC ABG pH POC ABG pCO2 32.4 L POC ABG pO2 73 L Sodium Potassium Chloride Carbon Dioxide BUN Creatinine Glucose POC Glucose 139 H Calcium C-Reactive Protein Total Protein Albumin TSH Urine pH Urine WBC (Auto) Vancomycin Trough 11/06/18 07:24 RBC Hgb Hct MCV MCH RDW Plt Count [place] % (Auto) Seg Neutrophils % Seg Neuts % (Manual) Lymphocytes % (Manual) Lymphocytes # (Manual) POC ABG pH POC ABG pCO2 POC ABG pO2 Sodium 136 L Potassium 3.2 L Chloride Carbon Dioxide BUN 59 H Creatinine 2.3 H Glucose 137 H POC Glucose Calcium 7.4 L C-Reactive Protein Total Protein Albumin TSH Urine pH Urine WBC (Auto) Vancomycin Trough
[2018-11-06] MEDS ORDERED: POTASSIUM CHLORIDE FEEDTUBE ONE (10:00)
[2018-11-06 10:09] LABS: Basophils % (Manual) 0 % (0.0-1.8); Eosinophils % (Manual) 0 % (0.0-4.3); Total Cells Counted 100
[2018-11-06 10:10] LABS: Platelet Estimate Consistent w Auto; Poikilocytosis Few
--- NOTE | 2018-11-06 10:30 | Progress Note ---
Assessment and Plan 1. ESRD: Patient was last dialyzed yesterday. Patient remain hypotensive on pressors. 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 2. FEN: Hyperkalemia, improved. Hypernatremia, improved. 3. Respiratory failure: On vent. 4. Septic Shock: On Levophed. 5. Pneumonia. 6. Anemia: Epogen. Subjective Date of service: 11/06/18 Principal diagnosis: sepsis, acute resp, failure. Interval history: Patient was seen and examined at the bedside. Objective - Vital Signs Vital signs: Vital Signs - 12hr 11/05/18 11/05/18 11/05/18 22:45 23:00 23:12 Temperature 97.9 F Pulse Rate 120 H 118 H 117 H Respiratory 27 H 18 20 Rate Blood Pressure 123/63 118/56 118/56 O2 Sat by Pulse 94 94 94 Oximetry 11/05/18 11/05/18 11/05/18 23:15 23:30 23:45 Temperature Pulse Rate 114 H 117 H 117 H Respiratory 22 21 24 Rate Blood Pressure 106/54 99/62 90/60 O2 Sat by Pulse 94 96 98 Oximetry 11/06/18 11/06/18 11/06/18 00:00 00:15 00:30 Temperature Pulse Rate 116 H 115 H 118 H Respiratory 22 25 H 28 H Rate Blood Pressure 96/58 90/60 92/54 O2 Sat by Pulse 98 98 98 Oximetry 11/06/18 11/06/18 11/06/18 00:45 00:51 01:00 Temperature Pulse Rate 116 H 119 H 117 H Respiratory 22 25 H Rate Blood Pressure 123/69 123/69 139/73 O2 Sat by Pulse 98 98 98 Oximetry 11/06/18 11/06/18 11/06/18 01:15 01:30 01:45 Temperature Pulse Rate 117 H 112 H 111 H Respiratory 27 H 24 23 Rate Blood Pressure 139/73 91/54 99/48 O2 Sat by Pulse 98 98 98 Oximetry 11/06/18 11/06/18 11/06/18 02:00 02:15 02:30 Temperature Pulse Rate 116 H 116 H 115 H Respiratory 23 25 H 26 H Rate Blood Pressure 91/59 98/56 107/55 O2 Sat by Pulse 98 97 98 Oximetry 11/06/18 11/06/18 11/06/18 02:45 03:00 03:15 Temperature Pulse Rate 114 H 116 H 117 H Respiratory 24 26 H 26 H Rate Blood Pressure 97/49 101/58 92/59 O2 Sat by Pulse 98 98 98 Oximetry 11/06/18 11/06/18 11/06/18 03:16 03:30 03:45 Temperature 99.8 F H Pulse Rate 113 H 113 H Respiratory 26 H 26 H Rate Blood Pressure 107/56 92/53 O2 Sat by Pulse 98 98 Oximetry 11/06/18 11/06/18 11/06/18 04:00 04:15 04:16 Temperature Pulse Rate 112 H 110 H 112 H Respiratory 26 H 26 H Rate Blood Pressure 100/58 90/51 90/51 O2 Sat by Pulse 97 98 98 Oximetry 11/06/18 11/06/18 11/06/18 04:30 04:45 05:00 Temperature Pulse Rate 109 H 108 H 109 H Respiratory 26 H 24 24 Rate Blood Pressure 94/52 86/49 86/49 O2 Sat by Pulse 98 98 99 Oximetry 11/06/18 11/06/18 11/06/18 05:15 05:30 05:46 Temperature Pulse Rate 107 H 109 H 106 H Respiratory 25 H 23 24 Rate Blood Pressure 80/52 91/61 113/60 O2 Sat by Pulse 99 100 100 Oximetry 11/06/18 11/06/18 11/06/18 06:00 06:15 06:30 Temperature Pulse Rate 106 H 105 H 103 H Respiratory 24 24 23 Rate Blood Pressure 118/60 100/54 94/53 O2 Sat by Pulse 100 99 99 Oximetry 11/06/18 11/06/18 11/06/18 06:45 07:00 07:15 Temperature Pulse Rate 103 H 103 H 105 H Respiratory 22 26 H 25 H Rate Blood Pressure 108/56 118/59 115/64 O2 Sat by Pulse 99 100 99 Oximetry 11/06/18 11/06/18 11/06/18 07:30 07:46 08:00 Temperature 99.6 F Pulse Rate 105 H 102 H 101 H Respiratory 24 25 H 23 Rate Blood Pressure 120/66 115/64 115/64 O2 Sat by Pulse 100 99 99 Oximetry 11/06/18 11/06/18 11/06/18 08:16 08:25 08:28 Temperature Pulse Rate 100 H 103 H 104 H Respiratory 22 19 Rate Blood Pressure 120/66 O2 Sat by Pulse 99 100 100 Oximetry 11/06/18 11/06/18 08:30 08:46 Temperature Pulse Rate 102 H 101 H Respiratory 24 24 Rate Blood Pressure 120/66 120/66 O2 Sat by Pulse 100 100 Oximetry - General Appearance General appearance: well-developed, appears stated age, cachectic, intubated, other (left groin hemodialysis catheter) EENT: ATNC Neck: supple Respiratory: Present: Clear to Ascultation Cardiology: regular, S1S2, no murmurs Gastrointestinal: normoactive bowel sounds, no tenderness, other (suprapubic catheter noted) Integumentary: ulcer (left leg) Neurologic: obtunded Musculoskeletal: other (right AKA, left TMA) - Lab 11/06/18 07:24 11/06/18 07:24 Most recent lab results Calcium 7.4 mg/dL (8.4-10.2) L 11/06/18 07:24 Phosphorus 3.10 mg/dL (2.5-4.5) 11/05/18 06:36 Medications & Allergies - Medications Allergies/Adverse Reactions: Allergies No Known Allergies Allergy (Verified 01/18/18 20:10) Home Medications: Home Medications Medication Instructions Recorded Confirmed Last Taken Type Acetaminophen [Acetaminophen TAB] 650 mg PO Q4H PRN 03/12/18 10/31/18 Unknown History Calcium Acetate [Phoslo] 667 mg PO TID 03/12/18 10/31/18 05/13/18 17:00 History Carvedilol [Coreg] 6.25 mg PO BID 03/12/18 10/31/18 05/13/18 09:00 History Ergocalciferol 50,000 unit PO QWEEK 03/12/18 10/31/18 05/11/18 09:00 History Apixaban [Eliquis] 2.5 mg PO BID tablet 08/21/18 10/31/18 Unknown Rx Megestrol [Megace] 400 mg PO QDAY 10/31/18 10/31/18 Unknown History Mirtazapine [Remeron] 15 mg PO QHS 10/31/18 10/31/18 Unknown History Elaine-José Rx Tablet 1 tab PO QDAY 10/31/18 10/31/18 Unknown History Sodium Bicarbonate 650 mg PO BID 10/31/18 10/31/18 Unknown History traMADol [Ultram 50 MG tab] 25 mg PO Q12H PRN 10/31/18 10/31/18 Unknown History Active Medications: Generic Name Dose Route Start Last Admin Trade Name Kristen PRN Reason Stop Dose Admin Acetaminophen 650 mg 11/02/18 09:25 Tylenol FEEDTUBE Q6H PRN Fever >101 Lipase/Protease/Amylase 1 each 11/01/18 10:[address] 10,500 Unit FEEDTUBE PRN PRN For Clogged Feeding Tube E[place] 20,000 unit 11/05/18 10:21 11/05/18 18:44 Procrit SUB-Q 20,000 unit ALEJO PRN Administration hemodialysis Famotidine 20 mg 11/01/18 10:00 11/05/18 09:58 Pepcid PO 20 mg DAILY KIRSTEN Administration Heparin Sodium (Porcine) 5,000 unit 10/29/18 22:00 11/06/18 05:55 Heparin SUB-Q 5,000 unit Q8HR KIRSTEN Administration Norepinephrine 4 mg in 250 mls @ 7.5 mls/hr 10/30/18 01:00 11/06/18 10:00 Levophed Drip 4 Mg/Ns 250 Ml IV 7 mcg/min TITR KIRSTEN 26.25 mls/hr Titration Protocol 2 MCG/MIN Cefepime HCl 1 gm in 100 mls @ 200 mls/hr 11/02/18 18:00 11/06/18 08:55 Maxipime/Ns 1 Gm/100 Ml IV Not Given QPM KIRSTEN Protocol Sodium Chloride 100 mls @ 999 mls/hr 11/05/18 08:53 Nacl 0.9% IV ALEJO PRN Hypotension Insulin Human Lispro 0 unit 10/30/18 10:00 11/06/18 06:00 Humalog SUB-Q Not Given Q6HR KIRSTEN Protocol Simple Syrup 15 ml 11/01/18 10:04 11/06/18 00:09 Simple Syrup FEEDTUBE 15 ml PRN PRN Administration Hypoglycemia Simple Syrup 30 ml 11/01/18 10:04 Simple Syrup FEEDTUBE PRN PRN Hypoglycemia Sodium Bicarbonate 325 mg 11/01/18 10:04 Sodium Bicarbonate FEEDTUBE PRN PRN For Clogged Feeding Tube
[2018-11-06] MEDS: PEPCID PO SCH (11:50)
--- NOTE | 2018-11-06 14:39 | Progress Note ---
Assessment and Plan Cultures: 10/29/2018 Blood culture: No growth 10/30/2018 sputum culture: MRSA 10/30/2018 urine culture: Mixed growth 11/02/2018 blood culture: no growth A/P: 73-year-old male with prostate cancer, ESRD on hemodialysis, diabetes mellitus, peripheral vascular disease status post right-sided AKA is admitted to the hospital [facility] a [facility] due to altered mental status. Apparently, the patient had been refusing dialysis for a week prior to admission. Now with: 1) Severe sepsis with shock s/p PEA arrest: on pressors, mechanical ventilation. 2) Right-sided pneumonia with acute hypoxic respiratory failure: On mechanical ventilation. Chest x-ray showing right-sided infiltrate. Sputum culture growing MRSA. 3) Possible UTI: Patient with indwelling suprapubic catheter. Also with ESRD on hemodialysis. This makes UA difficult to interpret for infection since quite likely to have urinary sediment. 4) ESRD on hemodialysis: Noncompliant. Renally dose abx. 5) Peripheral vascular disease: Status post right BKA, left TMA. 6) Right gluteal decubitus ulcer with eschar: continue wound care. 7) R sphenoid sinusitis noted on CT: already on abx. Recs: discontinued Cefepime continue renally vancomycin, target pre-dialysis level 10-20 mcg/ml (today is Day 7 of 10) Overall extremely poor prognosis, recommend comfort care Aaron Regan MD [facility] C: [phone] O: [phone] F: [phone] Subjective Date of service: 11/06/18 Principal diagnosis: sepsis, acute resp, failure. Interval history: Remains intubated. Remains on pressors. Unresponsive. Objective - Exam Narrative Exam: Physical Exam: Constitutional: unresponsive, intubated Head, Ears, Nose: Normocephalic, atraumatic. External ears, nose normal Eyes: Conjunctivae/corneas clear. No icterus. No ptosis. Neck: Supple, no meningeal signs Oral: intubated Cardiovascular: S1, S2 normal. Respiratory: Good air entry, clear to auscultation bilaterally GI: Soft, bowel sounds hypoactive. Suprapubic cath + with cloudy urine Musculoskeletal: Right AKA, left TMA stumps healed. Right gluteal region with eschar. Left femoral HD cath + Skin: No rash or abscess Hem/Lymphatic: No palpable cervical or supraclavicular nodes. No lymphangitis Psych: no agitation Neurological: unresponsive, intubated, on vent. - Constitutional Vitals: Vital Signs Temp Pulse Resp BP Pulse Ox 97 F L 102 H 26 H 124/67 99 11/06/18 12:00 11/06/18 13:38 11/06/18 13:38 11/06/18 13:38 11/06/18 13:38 Temperature -Last 24 Hours Temperature 97.0 F Temperature 97 F Temperature 99.6 F Temperature 99.8 F Temperature 97.9 F Temperature 98.2 F Temperature 98.9 F Temperature 97.5 F Temperature 98.9 F - Labs CBC & Chem 7: 11/06/18 07:24 11/06/18 07:24 Labs: Abnormal lab results 11/05/18 11/05/18 11/06/18 Range/Units 19:36 23:35 01:59 RBC (3.65-5.03) M/mm3 Hgb (11.8-15.2) gm/dl Hct (35.5-45.6) % MCV (84-94) fl MCH (28-32) pg RDW (13.2-15.2) % Plt Count (140-440) K/mm3 Seg Neuts % (Manual) (40.0-70.0) % Lymphocytes % (Manual) (13.4-35.0) % Lymphocytes # (Manual) (1.2-5.4) K/mm3 POC ABG pCO2 (35-45) POC ABG pO2 (80-105) Sodium (137-145) mmol/L Potassium (3.6-5.0) mmol/L BUN (9-20) mg/dL Creatinine (0.8-1.5) mg/dL Glucose (75-100) mg/dL POC Glucose 174 H 56 L 112 H (70-105) Calcium (8.4-10.2) mg/dL 11/06/18 11/06/18 11/06/18 Range/Units 04:33 05:06 07:24 RBC 2.83 L (3.65-5.03) M/mm3 Hgb 9.3 L (11.8-15.2) gm/dl Hct 27.9 L (35.5-45.6) % MCV 99 H (84-94) fl MCH 33 H (28-32) pg RDW 15.9 H (13.2-15.2) % Plt Count 133 L (140-440) K/mm3 Seg Neuts % (Manual) 94.0 H (40.0-70.0) % Lymphocytes % (Manual) 4.0 L (13.4-35.0) % Lymphocytes # (Manual) 0.3 L (1.2-5.4) K/mm3 POC ABG pCO2 32.4 L (35-45) POC ABG pO2 73 L (80-105) Sodium (137-145) mmol/L Potassium (3.6-5.0) mmol/L BUN (9-20) mg/dL Creatinine (0.8-1.5) mg/dL Glucose (75-100) mg/dL POC Glucose 139 H (70-105) Calcium (8.4-10.2) mg/dL 11/06/18 11/06/18 Range/Units 07:24 11:52 RBC (3.65-5.03) M/mm3 Hgb (11.8-15.2) gm/dl Hct (35.5-45.6) % MCV (84-94) fl MCH (28-32) pg RDW (13.2-15.2) % Plt Count (140-440) K/mm3 Seg Neuts % (Manual) (40.0-70.0) % Lymphocytes % (Manual) (13.4-35.0) % Lymphocytes # (Manual) (1.2-5.4) K/mm3 POC ABG pCO2 (35-45) POC ABG pO2 (80-105) Sodium 136 L (137-145) mmol/L Potassium 3.2 L (3.6-5.0) mmol/L BUN 59 H (9-20) mg/dL Creatinine 2.3 H (0.8-1.5) mg/dL Glucose 137 H (75-100) mg/dL POC Glucose 212 H (70-105) Calcium 7.4 L (8.4-10.2) mg/dL
--- NOTE | 2018-11-06 20:13 | Progress Note ---
Assessment and Plan - Patient Problems (1) Altered mental status Current Visit: Yes Status: Acute Qualifiers: Altered mental status type: unspecified Qualified Code(s): R41.82 - Altered mental status, unspecified Plan to address problem: most likely due to sinus infection follow ID. (2) Hyperkalemia Current Visit: Yes Status: Acute Plan to address problem: Treated, and continue to correct with HD. corrected. (3) Hypernatremia Current Visit: Yes Status: Acute Plan to address problem: correct with HD. As above when feasible with the Renal service. patient continues with HD. (4) Uremia Current Visit: Yes Status: Acute Plan to address problem: treat underlying cause. Follow Renal. (5) Acute encephalopathy Current Visit: Yes Status: Chronic Plan to address problem: supportive care. (6) ESRD needing dialysis Current Visit: Yes Status: Chronic Plan to address problem: Continue on HD. as above once feasible. (7) Sepsis Current Visit: Yes Status: Acute Plan to address problem: treat the etiology.Most likely due to sinus infection. Subjective Date of service: 11/06/18 Principal diagnosis: sepsis, acute resp, failure. Interval history: Patient seen/examined,in the ICU. I have spoken to the daughter, and his sister today, regarding plan of care, and prognosis. I have rec less aggressive path, including hospice. They will think about it ,and let me know. Mean while, will continue current management. His prognosis is quite poor at this time. Patient seen/examined, resting in bed, labs reviewed.Still on the vent.If unable to be weaned off the vent, on timely /expected time, will push for LTAC eval[facility]placement [facility] to start preparing for this possibility. Patient seen/examined, resting in bed, still not wean able yet.He had HD today. patient seen/examined, resting in bed. labs/records/notes reviewed, including ID consult notes. Cxr with PNA., 24hr Tm 102. Patient seen/examined, resting in bed, NR, BP low, and Levo increased back up ,to maintain any appreciable reading. Labs reviewed. I have discussed/updated the daughter Ramón today, discussed code status again, and prognosis,as well as long time plan/disposition.She has signed a Do NOT Resuscitate, and the other family member suppose to sign hers today, or tomorrow. I have recommended, and she is in agreement to the LTAC placement at [facility], where he can also get trached, if, and when feasible. I want the casey saw operator to act on this on timely manner.MRSA positive in the sputum.ID on the case. Patient seen/examined, resting in bed, labs reviewed. Patient is now an AND status.Plan for LTAC referral by the casey saw operator, I have spoken to the family about [facility], and she was in agreement. patient seen/examined, resting in bed, records reviewed, case d/w Dr Garcia.I had already spoken to the primary daughter about LTAC this past week, and she was in agreement. I do not think patient has to be trached/peg here before d/c, and transfer to the LTAC, both the patient, and family will have ample time to think tis over ,if /when it comes to that.I will however continue to speak to them. PLs read notes, so we can all be on the same plan for disposition. patient seen/examined, resting in bed. labs/records reviewed, family meeting held with the 3 Daughters by me. Spent time discussing prognosis, trach/peg. they have agreed to these procedures, even if there could be serious complication. I will consult ENT- Dr West,while waiting on EEG results.Once completed, will transfer to the LTAC as agreed to by the family.I have ensured them , that the prognosis is poor, no matter what is done hence forth. Objective - Constitutional Vitals: Vital Signs - 12hr 11/06/18 11/06/18 11/06/18 08:16 08:25 08:28 Temperature Pulse Rate 100 H 103 H 104 H Respiratory 22 19 Rate Blood Pressure 120/66 O2 Sat by Pulse 99 100 100 Oximetry 11/06/18 11/06/18 11/06/18 08:30 08:46 09:00 Temperature Pulse Rate 102 H 101 H 102 H Respiratory 24 24 25 H Rate Blood Pressure 120/66 120/66 120/66 O2 Sat by Pulse 100 100 99 Oximetry 11/06/18 11/06/18 11/06/18 09:16 09:30 09:46 Temperature Pulse Rate 100 H 100 H 100 H Respiratory 21 20 23 Rate Blood Pressure 120/66 120/66 120/66 O2 Sat by Pulse 99 99 99 Oximetry 04/04/1811/06/18 11/06/18 10:00 10:16 10:30 Temperature Pulse Rate 99 H 101 H 101 H Respiratory 22 25 H 24 Rate Blood Pressure 87/48 108/64 126/69 O2 Sat by Pulse 99 100 100 Oximetry 11/06/18 11/06/18 11/06/18 10:46 11:00 11:16 Temperature Pulse Rate 99 H 98 H 98 H Respiratory 21 21 22 Rate Blood Pressure 115/62 126/66 126/61 O2 Sat by Pulse 100 100 100 Oximetry 11/06/18 11/06/18 11/06/18 11:30 11:46 12:00 Temperature 97.0 F L Pulse Rate 99 H 101 H 100 H Respiratory 22 24 24 Rate Blood Pressure 110/55 122/63 131/69 O2 Sat by Pulse 100 100 100 Oximetry 11/06/18 11/06/18 11/06/18 12:16 12:30 12:45 Temperature Pulse Rate 102 H 103 H 102 H Respiratory 23 24 24 Rate Blood Pressure 136/69 134/71 127/67 O2 Sat by Pulse 100 100 99 Oximetry 11/06/18 11/06/18 11/06/18 13:00 13:15 13:31 Temperature Pulse Rate 102 H 103 H 103 H Respiratory 24 26 H 22 Rate Blood Pressure 120/68 101/54 117/62 O2 Sat by Pulse 100 99 100 Oximetry 11/06/18 11/06/18 11/06/18 13:38 13:45 14:01 Temperature Pulse Rate 102 H 102 H 102 H Respiratory 26 H 25 H 25 H Rate Blood Pressure 124/67 122/65 126/66 O2 Sat by Pulse 99 100 100 Oximetry 11/06/18 11/06/18 11/06/18 14:15 14:31 14:45 Temperature Pulse Rate 102 H 100 H 100 H Respiratory 24 25 H 25 H Rate Blood Pressure 126/67 126/64 115/61 O2 Sat by Pulse 100 100 99 Oximetry 11/06/18 11/06/18 11/06/18 15:01 15:15 15:31 Temperature Pulse Rate 100 H 100 H 101 H Respiratory 25 H 25 H 24 Rate Blood Pressure 120/62 126/67 123/66 O2 Sat by Pulse 100 100 100 Oximetry 11/06/18 11/06/18 11/06/18 15:45 16:01 16:15 Temperature Pulse Rate 100 H 100 H 99 H Respiratory 26 H 26 H 25 H Rate Blood Pressure 133/69 122/65 112/59 O2 Sat by Pulse 100 99 100 Oximetry 11/06/18 11/06/18 11/06/18 16:28 16:30 16:45 Temperature 99.2 F Pulse Rate 99 H 100 H Respiratory 23 26 H Rate Blood Pressure 116/59 117/59 O2 Sat by Pulse 100 100 Oximetry 11/06/18 11/06/18 11/06/18 17:00 17:10 17:15 Temperature 99.6 F Pulse Rate 102 H 100 H Respiratory 28 H 25 H Rate Blood Pressure 106/59 143/71 O2 Sat by Pulse 100 100 Oximetry 11/06/18 11/06/18 11/06/18 17:31 17:45 17:48 Temperature Pulse Rate 102 H 102 H 102 H Respiratory 26 H 26 H 27 H Rate Blood Pressure 91/49 86/48 86/48 O2 Sat by Pulse 100 100 100 Oximetry 11/06/18 11/06/18 18:01 18:15 Temperature Pulse Rate 100 H 99 H Respiratory 25 H 24 Rate Blood Pressure 101/54 119/65 O2 Sat by Pulse 100 100 Oximetry General appearance: Present: cachectic - EENT Eyes: PERRL, EOM intact ENT: hearing intact, clear oral mucosa Ears: bilateral: normal - Neck Neck: supple, normal ROM - Respiratory Respiratory effort: normal Respiratory: bilateral: CTA - Breasts Breasts: deferred - Cardiovascular Rhythm: regular Heart Sounds: Present: S1 & S2. Absent: gallop, rub - Gastrointestinal General gastrointestinal: Present: soft, non-tender, non-distended, normal bowel sounds Rectal Exam: deferred - Genitourinary Male genitourinary: deferred - Integumentary Integumentary: clear, warm, dry - Musculoskeletal Musculoskeletal: 1, strength equal bilaterally - Labs CBC & Chem 7: 11/06/18 07:24 11/06/18 07:24 Labs: Abnormal lab results 11/05/18 11/06/18 11/06/18 Range/Units 23:35 01:59 04:33 RBC (3.65-5.03) M/mm3 Hgb (11.8-15.2) gm/dl Hct (35.5-45.6) % MCV (84-94) fl MCH (28-32) pg RDW (13.2-15.2) % Plt Count (140-440) K/mm3 Seg Neuts % (Manual) (40.0-70.0) % Lymphocytes % (Manual) (13.4-35.0) % Lymphocytes # (Manual) (1.2-5.4) K/mm3 POC ABG pCO2 32.4 L (35-45) POC ABG pO2 73 L (80-105) Sodium (137-145) mmol/L Potassium (3.6-5.0) mmol/L BUN (9-20) mg/dL Creatinine (0.8-1.5) mg/dL Glucose (75-100) mg/dL POC Glucose 56 L 112 H (70-105) Calcium (8.4-10.2) mg/dL 11/06/18 11/06/18 11/06/18 Range/Units 05:06 07:24 07:24 RBC 2.83 L (3.65-5.03) M/mm3 Hgb 9.3 L (11.8-15.2) gm/dl Hct 27.9 L (35.5-45.6) % MCV 99 H (84-94) fl MCH 33 H (28-32) pg RDW 15.9 H (13.2-15.2) % Plt Count 133 L (140-440) K/mm3 Seg Neuts % (Manual) 94.0 H (40.0-70.0) % Lymphocytes % (Manual) 4.0 L (13.4-35.0) % Lymphocytes # (Manual) 0.3 L (1.2-5.4) K/mm3 POC ABG pCO2 (35-45) POC ABG pO2 (80-105) Sodium 136 L (137-145) mmol/L Potassium 3.2 L (3.6-5.0) mmol/L BUN 59 H (9-20) mg/dL Creatinine 2.3 H (0.8-1.5) mg/dL Glucose 137 H (75-100) mg/dL POC Glucose 139 H (70-105) Calcium 7.4 L (8.4-10.2) mg/dL 11/06/18 11/06/18 Range/Units 11:52 17:16 RBC (3.65-5.03) M/mm3 Hgb (11.8-15.2) gm/dl Hct (35.5-45.6) % MCV (84-94) fl MCH (28-32) pg RDW (13.2-15.2) % Plt Count (140-440) K/mm3 Seg Neuts % (Manual) (40.0-70.0) % Lymphocytes % (Manual) (13.4-35.0) % Lymphocytes # (Manual) (1.2-5.4) K/mm3 POC ABG pCO2 (35-45) POC ABG pO2 (80-105) Sodium (137-145) mmol/L Potassium (3.6-5.0) mmol/L BUN (9-20) mg/dL Creatinine (0.8-1.5) mg/dL Glucose (75-100) mg/dL POC Glucose 212 H 194 H (70-105) Calcium (8.4-10.2) mg/dL Medications & Allergies - Medications Allergies/Adverse Reactions: Allergies No Known Allergies Allergy (Verified 01/18/18 20:10) Home Medications: Home Medications Medication Instructions Recorded Confirmed Last Taken Type Acetaminophen [Acetaminophen TAB] 650 mg PO Q4H PRN 03/12/18 10/31/18 Unknown History Calcium Acetate [Phoslo] 667 mg PO TID 03/12/18 10/31/18 05/13/18 17:00 History Carvedilol [Coreg] 6.25 mg PO BID 03/12/18 10/31/18 05/13/18 09:00 History Ergocalciferol 50,000 unit PO QWEEK 03/12/18 10/31/18 05/11/18 09:00 History Apixaban [Eliquis] 2.5 mg PO BID tablet 08/21/18 10/31/18 Unknown Rx Megestrol [Megace] 400 mg PO QDAY 10/31/18 10/31/18 Unknown History Mirtazapine [Remeron] 15 mg PO QHS 10/31/18 10/31/18 Unknown History Elaine-José Rx Tablet 1 tab PO QDAY 10/31/18 10/31/18 Unknown History Sodium Bicarbonate 650 mg PO BID 10/31/18 10/31/18 Unknown History traMADol [Ultram 50 MG tab] 25 mg PO Q12H PRN 10/31/18 10/31/18 Unknown History Active Medications: Generic Name Dose Route Start Last Admin Trade Name Kristen PRN Reason Stop Dose Admin Acetaminophen 650 mg 11/02/18 09:25 Tylenol FEEDTUBE Q6H PRN Fever >101 Lipase/Protease/Amylase 1 each 11/01/18 10:[address] 10,500 Unit FEEDTUBE PRN PRN For Clogged Feeding Tube Epoetin [place] 20,000 unit 11/05/18 10:21 11/05/18 18:44 Procrit SUB-Q 20,000 unit ALEJO PRN Administration hemodialysis Famotidine 20 mg 11/01/18 10:00 11/06/18 11:50 Pepcid PO 20 mg DAILY KIRSTEN Administration Heparin Sodium (Porcine) 5,000 unit 10/29/18 22:00 11/06/18 16:06 Heparin SUB-Q 5,000 unit Q8HR KIRSTEN Administration Norepinephrine 4 mg in 250 mls @ 7.5 mls/hr 10/30/18 01:00 11/06/18 17:56 Levophed Drip 4 Mg/Ns 250 Ml IV 6 mcg/min TITR KIRSTEN 22.5 mls/hr Administration Protocol 2 MCG/MIN Sodium Chloride 100 mls @ 999 mls/hr 11/05/18 08:53 Nacl 0.9% IV ALEJO PRN Hypotension Insulin Human Lispro 0 unit 10/30/18 10:00 11/06/18 17:56 Humalog SUB-Q 3 unit Q6HR KIRSTEN Administration Protocol Simple Syrup 15 ml 11/01/18 10:04 11/06/18 00:09 Simple Syrup FEEDTUBE 15 ml PRN PRN Administration Hypoglycemia Simple Syrup 30 ml 11/01/18 10:04 Simple Syrup FEEDTUBE PRN PRN Hypoglycemia Sodium Bicarbonate 325 mg 11/01/18 10:04 Sodium Bicarbonate FEEDTUBE PRN PRN For Clogged Feeding Tube
[2018-11-07] MEDS: HumaLOG SUB-Q SCH ×4 (01:08→18:18)
[2018-11-07 06:30] LABS: Basophils % (Auto) 0.2 % (0.0-1.8); Eosinophils # (Auto) 0.1 K/mm3 (0.0-0.4); Eosinophils % (Auto) 1.2 % (0.0-4.3); Hematocrit 26.3 % (35.5-45.6); Hemoglobin 8.7 gm/dl (11.8-15.2); Lymphocytes # (Auto) 0.4 K/mm3 (1.2-5.4); Lymphocytes % (Auto) 4.6 % (13.4-35.0); Mean Corpuscular HGB Conc 33 % (32-34); Mean Corpuscular Volume 100 fl (84-94); Monocytes # (Auto) 0.4 K/mm3 (0.0-0.8); Monocytes % (Auto) 4.6 % (0.0-7.3); Platelet Count 172 K/mm3 (140-440); Red Blood Count 2.64 M/mm3 (3.65-5.03); Red Cell Distribution Width 15.7 % (13.2-15.2)
[2018-11-07] MEDS: HEPARIN SUB-Q SCH ×3 (06:42→22:08)
[2018-11-07 07:00] LABS: Calcium 7.7 mg/dL (8.4-10.2)
[2018-11-07] MEDS ORDERED: NACL 0.9% 100 ML IV PRN (07:09)
[2018-11-07] MEDS: LEVOPHED DRIP 4 MG/NS 250 ML 4 MG/250 ML BAG IV SCH ×2 (08:57→18:25)
[2018-11-07] MEDS ORDERED: ATIVAN IV ONE (09:30)
--- NOTE | 2018-11-07 09:37 | Progress Note ---
Assessment and Plan -s/p PEA arrest -Severe sepsis with septic shock -Fevers, Tracheal aspirate positive for MRSA -Acute hypoxic respiratory failure on MVS -Acute encephalopathy( toxic, metabolic) -Severe protein calorie malnutrition -Hyperkalemia( resolved) -ESRD on HD, clotted graft s/p femoral HD catheter -Hyperosmolar hyperglycemic state( improving) -Hypotension, multifactorial, -Hypernatremia, resolved -PVD s/p right BKA -Prostate cancer s/p suprapubic catheter -Continue with MVS -Lung protective strategies -VAP bundle addressed. -Supplemental oxygen, wean for O2 sats>90% -Daily SBTs as tolerated -VTE prophylaxis( heparin) -Stress ulcer prophylaxis( Famotidine) -High dose sliding scale insulin with accuchecks -Tube feedings with aspiration precautions -Glycemic control, target blood glucose of 140-180mg/dL -Free water flushes - Continue wound care by wound care team -Supportive HD -Wean vasopressor support for MAP>65 -Volume resuscitation -ABG and CXR in am -Critical care bundles addressed CONDITION: CRITICAL PROGNOSIS: GUARDED CODE STATUS: DNAR I have spent 35 minutes in the direct care of this critically ill patient, excluding procedure time. Critical care time was spent on this patient and during his initial evaluation, multiple re-evaluations, ordering and interpretation of labs and imaging, medications, discussion with the ICU care team. There is a high probability of clinically significant, sudden, or life-threatening deterioration that has required multiple evaluations and direct attention, intervention, and management. Subjective Date of service: 11/07/18 Principal diagnosis: sepsis, acute resp, failure. Interval history: Patient is seen today for: Acute hypoxemic respiratory failure on MVS; Severe sepsis with septic shock; acute encephaloapthy; Seen and examined at bedside; 24hour events reviewed; nursing and respiratory care staff consulted; No fevers overnight, remains on norepinephrine for hemodynamic support Remains unresponsive, on mechanical ventilatory support, no dys-synchrony Objective - Exam Narrative Exam: Physical Exam: Constitutional: unresponsive. on mechanical ventilatory support Head, Ears, Nose: Normocephalic, atraumatic. External ears, nose normal. Eyes: Conjunctivae/corneas clear. No icterus. No ptosis. Neck: trach + Cardiovascular: S1, S2 normal. Respiratory: Good air entry, clear to auscultation bilaterally GI: Soft, bowel sounds +. PEG + Suprapubic catheter + Musculoskeletal: Right AKA, left TMA stumps healed. Right gluteal region with eschar. Left femoral trialysis cath +. Edema + Skin: No rash or abscess Hem/Lymphatic: No palpable cervical or supraclavicular nodes. No lymphangitis Psych: no agitation Neurological: unresponsive, intubated, on vent. Vital Signs - 12hr 11/06/18 11/06/18 11/06/18 21:45 22:01 22:15 Temperature Pulse Rate 99 H 100 H 100 H Pulse Rate [ From Monitor] Respiratory 24 25 H 27 H Rate Blood Pressure 114/64 101/58 127/68 O2 Sat by Pulse 100 100 100 Oximetry 11/06/18 11/06/18 11/06/18 22:30 22:45 22:52 Temperature Pulse Rate 99 H 98 H 97 H Pulse Rate [ From Monitor] Respiratory 24 23 22 Rate Blood Pressure 97/54 98/54 111/63 O2 Sat by Pulse 100 100 100 Oximetry 11/06/18 11/06/18 11/06/18 23:01 23:03 23:15 Temperature Pulse Rate 97 H 97 H 97 H Pulse Rate [ From Monitor] Respiratory 22 22 24 Rate Blood Pressure 108/61 114/60 112/61 O2 Sat by Pulse 100 100 100 Oximetry 11/06/18 11/06/18 11/07/18 23:31 23:45 00:00 Temperature Pulse Rate 99 H 97 H 83 Pulse Rate [ 98 H From Monitor] Respiratory 20 25 H Rate Blood Pressure 112/62 115/63 O2 Sat by Pulse 100 100 100 Oximetry 11/07/18 11/07/18 11/07/18 00:01 00:10 00:15 Temperature Pulse Rate 98 H 99 H 99 H Pulse Rate [ From Monitor] Respiratory 24 20 24 Rate Blood Pressure 110/60 111/60 111/60 O2 Sat by Pulse 100 100 100 Oximetry 11/07/18 11/07/18 11/07/18 00:31 00:45 01:01 Temperature Pulse Rate 98 H 98 H 97 H Pulse Rate [ From Monitor] Respiratory 24 12 25 H Rate Blood Pressure 118/65 122/88 107/59 O2 Sat by Pulse 100 100 100 Oximetry 11/07/18 11/07/18 11/07/18 01:15 01:31 01:45 Temperature Pulse Rate 97 H 97 H 98 H Pulse Rate [ From Monitor] Respiratory 24 24 25 H Rate Blood Pressure 109/60 113/60 114/60 O2 Sat by Pulse 100 100 100 Oximetry 11/07/18 11/07/18 11/07/18 02:00 02:01 02:15 Temperature 99.6 F Pulse Rate 99 H 99 H Pulse Rate [ From Monitor] Respiratory 25 H 26 H Rate Blood Pressure 111/59 109/58 O2 Sat by Pulse 100 100 Oximetry 11/07/18 11/07/18 11/07/18 02:31 02:45 03:01 Temperature Pulse Rate 99 H 100 H 101 H Pulse Rate [ From Monitor] Respiratory 25 H 25 H 25 H Rate Blood Pressure 106/57 105/57 106/57 O2 Sat by Pulse 99 100 100 Oximetry 11/07/18 11/07/18 11/07/18 03:15 03:31 03:45 Temperature Pulse Rate 101 H 103 H 103 H Pulse Rate [ From Monitor] Respiratory 26 H 26 H 17 Rate Blood Pressure 106/55 99/54 101/55 O2 Sat by Pulse 100 99 99 Oximetry 11/07/18 11/07/18 11/07/18 04:00 04:01 04:15 Temperature Pulse Rate 102 H 103 H Pulse Rate [ 102 H From Monitor] Respiratory 25 H 25 H Rate Blood Pressure 100/53 107/61 O2 Sat by Pulse 100 99 100 Oximetry 11/07/18 11/07/18 11/07/18 04:31 04:45 05:01 Temperature Pulse Rate 102 H 101 H 102 H Pulse Rate [ From Monitor] Respiratory 25 H 25 H 25 H Rate Blood Pressure 93/51 97/54 101/55 O2 Sat by Pulse 99 99 99 Oximetry 11/07/18 11/07/18 11/07/18 05:15 05:31 05:45 Temperature Pulse Rate 101 H 104 H 102 H Pulse Rate [ From Monitor] Respiratory 25 H 25 H 30 H Rate Blood Pressure 100/56 114/62 118/58 O2 Sat by Pulse 100 97 98 Oximetry 11/07/18 11/07/18 11/07/18 06:01 06:15 06:31 Temperature Pulse Rate 102 H 101 H 100 H Pulse Rate [ From Monitor] Respiratory 27 H 22 23 Rate Blood Pressure 110/59 103/56 110/59 O2 Sat by Pulse 99 98 96 Oximetry 11/07/18 11/07/18 06:45 08:58 Temperature Pulse Rate 100 H 98 H Pulse Rate [ From Monitor] Respiratory 23 Rate Blood Pressure 116/61 94/45 O2 Sat by Pulse 95 97 Oximetry CBC and BMP: 11/16/18 05:45 11/16/18 05:45 ABG, PT/INR, D-dimer: ABG POC ABG pH 7.443 (7.35-7.45) 11/06/18 04:33 POC ABG pCO2 32.4 (35-45) L 11/06/18 04:33 POC ABG pO2 73 (80-105) L 11/06/18 04:33 POC ABG HCO3 22.2 (22-26 mml/L) 11/06/18 04:33 POC ABG Total CO2 23 (23-27mmol/L) 11/06/18 04:33 POC ABG O2 Sat 95 11/06/18 04:33 Abnormal lab findings: Abnormal Labs 10/29/18 10/29/18 10/29/18 17:13 17:13 17:13 RBC 3.62 L Hgb Hct MCV 102 H MCH 34 H RDW 19.6 H Plt Count Lymph % (Auto) [place] % (Auto) 7.8 H Lymph # Seg Neutrophils % 71.2 H Seg Neuts % (Manual) Lymphocytes % (Manual) Seg Neutrophils # Lymphocytes # (Manual) POC ABG pH POC ABG pCO2 POC ABG pO2 Sodium 164 H* Potassium 6.2 H* Chloride 127.5 H Carbon Dioxide BUN 178 H Creatinine 4.2 H Glucose 131 H POC Glucose Calcium 10.7 H C-Reactive Protein Total Protein 9.5 H Albumin 2.6 L TSH 5.310 H Urine pH Urine WBC (Auto) Vancomycin Trough 10/29/18 10/30/18 10/30/18 23:57 00:06 04:35 RBC Hgb Hct MCV MCH RDW Plt Count Lymph % (Auto) [place] % (Auto) Lymph # Seg Neutrophils % Seg Neuts % (Manual) Lymphocytes % (Manual) Seg Neutrophils # Lymphocytes # (Manual) POC ABG pH 7.488 H POC ABG pCO2 32.1 L 34.9 L POC ABG pO2 144 H Sodium Potassium Chloride Carbon Dioxide BUN Creatinine Glucose POC Glucose 131 H Calcium C-Reactive Protein Total Protein Albumin TSH Urine pH Urine WBC (Auto) Vancomycin Trough 10/30/18 10/30/18 10/30/18 05:13 08:54 08:54 RBC 3.56 L Hgb 11.7 L Hct MCV 102 H MCH 33 H RDW 19.2 H Plt Count Lymph % (Auto) [place] % (Auto) Lymph # Seg Neutrophils % Seg Neuts % (Manual) Lymphocytes % (Manual) Seg Neutrophils # Lymphocytes # (Manual) POC ABG pH POC ABG pCO2 POC ABG pO2 Sodium Potassium Chloride Carbon Dioxide BUN Creatinine Glucose POC Glucose 316 H Calcium C-Reactive Protein 5.20 H Total Protein Albumin 2.2 L TSH Urine pH Urine WBC (Auto) Vancomycin Trough 10/30/18 10/30/18 10/30/18 08:59 12:03 18:30 RBC Hgb Hct MCV MCH RDW Plt Count Lymph % (Auto) [place] % (Auto) Lymph # Seg Neutrophils % Seg Neuts % (Manual) Lymphocytes % (Manual) Seg Neutrophils # Lymphocytes # (Manual) POC ABG pH POC ABG pCO2 POC ABG pO2 Sodium 146 H D Potassium Chloride Carbon Dioxide BUN 86 H Creatinine 2.7 H Glucose 262 H POC Glucose 232 H 57 L Calcium C-Reactive Protein Total Protein Albumin TSH Urine pH Urine WBC (Auto) Vancomycin Trough 10/30/18 10/30/18 10/30/18 18:39 19:07 19:42 RBC Hgb Hct MCV MCH RDW Plt Count Lymph % (Auto) [place] % (Auto) Lymph # Seg Neutrophils % Seg Neuts % (Manual) Lymphocytes % (Manual) Seg Neutrophils # Lymphocytes # (Manual) POC ABG pH POC ABG pCO2 POC ABG pO2 Sodium Potassium Chloride Carbon Dioxide BUN Creatinine Glucose POC Glucose < 40 L 51 L Calcium C-Reactive Protein Total Protein Albumin TSH Urine pH 8.0 H Urine WBC (Auto) > 182.0 H Vancomycin Trough 10/30/18 10/30/18 10/30/18 19:51 23:13 23:20 RBC Hgb Hct MCV MCH RDW Plt Count Lymph % (Auto) [place] % (Auto) Lymph # Seg Neutrophils % Seg Neuts % (Manual) Lymphocytes % (Manual) Seg Neutrophils # Lymphocytes # (Manual) POC ABG pH POC ABG pCO2 POC ABG pO2 Sodium Potassium Chloride 108.5 H Carbon Dioxide 21 L BUN 96 H Creatinine 3.0 H Glucose 865 H* 150 H POC Glucose 152 H Calcium C-Reactive Protein Total Protein Albumin TSH Urine pH Urine WBC (Auto) Vancomycin Trough 10/30/18 10/31/18 10/31/18 23:40 04:43 04:43 RBC Hgb Hct MCV 100 H MCH 33 H RDW 18.1 H Plt Count Lymph % (Auto) [place] % (Auto) Lymph # Seg Neutrophils % Seg Neuts % (Manual) Lymphocytes % (Manual) 4.0 L Seg Neutrophils # Lymphocytes # (Manual) 0.3 L POC ABG pH POC ABG pCO2 POC ABG pO2 Sodium Potassium Chloride Carbon Dioxide 19 L BUN 98 H Creatinine 3.2 H Glucose 184 H POC Glucose 145 H Calcium C-Reactive Protein Total Protein Albumin TSH Urine pH Urine WBC (Auto) Vancomycin Trough 10/31/18 10/31/18 10/31/18 05:44 11:44 13:19 RBC Hgb Hct MCV MCH RDW Plt Count Lymph % (Auto) [place] % (Auto) Lymph # Seg Neutrophils % Seg Neuts % (Manual) Lymphocytes % (Manual) Seg Neutrophils # Lymphocytes # (Manual) POC ABG pH POC ABG pCO2 POC ABG pO2 64 L Sodium Potassium Chloride Carbon Dioxide BUN Creatinine Glucose POC Glucose 142 H 196 H Calcium C-Reactive Protein Total Protein Albumin TSH Urine pH Urine WBC (Auto) Vancomycin Trough 10/31/18 11/01/18 11/01/18 17:36 04:07 04:07 RBC 3.40 L Hgb 11.2 L Hct 33.6 L MCV 99 H MCH 33 H RDW 17.5 H Plt Count Lymph % (Auto) [place] % (Auto) Lymph # Seg Neutrophils % Seg Neuts % (Manual) 80.0 H Lymphocytes % (Manual) 4.0 L Seg Neutrophils # Lymphocytes # (Manual) 0.3 L POC ABG pH POC ABG pCO2 POC ABG pO2 Sodium Potassium Chloride Carbon Dioxide 19 L BUN 108 H Creatinine 3.9 H Glucose 138 H POC Glucose 174 H Calcium 7.9 L C-Reactive Protein Total Protein Albumin TSH Urine pH Urine WBC (Auto) Vancomycin Trough 11/01/18 11/01/18 11/01/18 05:24 05:36 13:09 RBC Hgb Hct MCV MCH RDW Plt Count Lymph % (Auto) [place] % (Auto) Lymph # Seg Neutrophils % Seg Neuts % (Manual) Lymphocytes % (Manual) Seg Neutrophils # Lymphocytes # (Manual) POC ABG pH POC ABG pCO2 POC ABG pO2 65 L Sodium Potassium Chloride Carbon Dioxide BUN Creatinine Glucose POC Glucose 153 H 249 H Calcium C-Reactive Protein Total Protein Albumin TSH Urine pH Urine WBC (Auto) Vancomycin Trough 11/01/18 11/02/18 11/02/18 18:11 05:04 07:17 RBC 3.08 L Hgb 10.1 L Hct 30.1 L MCV 98 H MCH 33 H RDW 16.7 H Plt Count Lymph % (Auto) [place] % (Auto) Lymph # Seg Neutrophils % Seg Neuts % (Manual) 92.0 H Lymphocytes % (Manual) 3.0 L Seg Neutrophils # Lymphocytes # (Manual) 0.2 L POC ABG pH POC ABG pCO2 POC ABG pO2 Sodium Potassium Chloride Carbon Dioxide BUN Creatinine Glucose POC Glucose 175 H 118 H Calcium C-Reactive Protein Total Protein Albumin TSH Urine pH Urine WBC (Auto) Vancomycin Trough 11/02/18 11/02/18 11/02/18 07:54 09:32 12:28 RBC Hgb Hct MCV MCH RDW Plt Count Lymph % (Auto) [place] % (Auto) Lymph # Seg Neutrophils % Seg Neuts % (Manual) Lymphocytes % (Manual) Seg Neutrophils # Lymphocytes # (Manual) POC ABG pH 7.514 H POC ABG pCO2 POC ABG pO2 70 L Sodium 135 L Potassium Chloride Carbon Dioxide BUN 48 H Creatinine 2.2 H Glucose 170 H POC Glucose 242 H Calcium 7.4 L C-Reactive Protein Total Protein Albumin TSH Urine pH Urine WBC (Auto) Vancomycin Trough 11/02/18 11/03/18 11/03/18 23:32 04:34 05:10 RBC 2.87 L Hgb 9.4 L Hct 28.5 L MCV 99 H MCH 33 H RDW 16.7 H Plt Count Lymph % (Auto) [place] % (Auto) Lymph # Seg Neutrophils % Seg Neuts % (Manual) 91.0 H Lymphocytes % (Manual) 4.0 L Seg Neutrophils # Lymphocytes # (Manual) 0.3 L POC ABG pH POC ABG pCO2 33.2 L POC ABG pO2 76 L Sodium Potassium Chloride Carbon Dioxide BUN Creatinine Glucose POC Glucose 177 H Calcium C-Reactive Protein Total Protein Albumin TSH Urine pH Urine WBC (Auto) Vancomycin Trough 11/03/18 11/03/18 11/03/18 06:04 12:26 18:43 RBC Hgb Hct MCV MCH RDW Plt Count Lymph % (Auto) [place] % (Auto) Lymph # Seg Neutrophils % Seg Neuts % (Manual) Lymphocytes % (Manual) Seg Neutrophils # Lymphocytes # (Manual) POC ABG pH POC ABG pCO2 POC ABG pO2 Sodium Potassium Chloride Carbon Dioxide BUN Creatinine Glucose POC Glucose 168 H 196 H 153 H Calcium C-Reactive Protein Total Protein Albumin TSH Urine pH Urine WBC (Auto) Vancomycin Trough 11/03/18 11/04/18 11/04/18 23:34 03:50 05:05 RBC 2.74 L Hgb 9.1 L Hct 27.3 L MCV 99 H MCH 33 H RDW 16.5 H Plt Count Lymph % (Auto) [place] % (Auto) Lymph # Seg Neutrophils % Seg Neuts % (Manual) 87.0 H Lymphocytes % (Manual) 7.0 L Seg Neutrophils # Lymphocytes # (Manual) 0.5 L POC ABG pH POC ABG pCO2 31.7 L POC ABG pO2 74 L Sodium Potassium Chloride Carbon Dioxide BUN Creatinine Glucose POC Glucose 213 H Calcium C-Reactive Protein Total Protein Albumin TSH Urine pH Urine WBC (Auto) Vancomycin Trough 11/04/18 11/04/18 11/04/18 05:05 05:23 12:26 RBC Hgb Hct MCV MCH RDW Plt Count Lymph % (Auto) [place] % (Auto) Lymph # Seg Neutrophils % Seg Neuts % (Manual) Lymphocytes % (Manual) Seg Neutrophils # Lymphocytes # (Manual) POC ABG pH POC ABG pCO2 POC ABG pO2 Sodium Potassium Chloride Carbon Dioxide BUN 84 H Creatinine 3.3 H Glucose 177 H POC Glucose 196 H 182 H Calcium 7.6 L C-Reactive Protein Total Protein Albumin TSH Urine pH Urine WBC (Auto) Vancomycin Trough 11/04/18 11/04/18 11/05/18 13:25 22:36 05:07 RBC Hgb Hct MCV MCH RDW Plt Count Lymph % (Auto) [place] % (Auto) Lymph # Seg Neutrophils % Seg Neuts % (Manual) Lymphocytes % (Manual) Seg Neutrophils # Lymphocytes # (Manual) POC ABG pH POC ABG pCO2 30.1 L POC ABG pO2 63 L Sodium Potassium Chloride Carbon Dioxide BUN Creatinine Glucose POC Glucose 159 H Calcium C-Reactive Protein Total Protein Albumin TSH Urine pH Urine WBC (Auto) Vancomycin Trough 4.4 L 11/05/18 11/05/18 11/05/18 05:42 06:36 12:54 RBC Hgb Hct MCV MCH RDW Plt Count Lymph % (Auto) [place] % (Auto) Lymph # Seg Neutrophils % Seg Neuts % (Manual) Lymphocytes % (Manual) Seg Neutrophils # Lymphocytes # (Manual) POC ABG pH POC ABG pCO2 POC ABG pO2 Sodium 134 L Potassium 3.4 L Chloride Carbon Dioxide 18 L BUN 93 H Creatinine 3.7 H Glucose 230 H POC Glucose 233 H 237 H Calcium 7.8 L C-Reactive Protein Total Protein Albumin TSH Urine pH Urine WBC (Auto) Vancomycin Trough 11/05/18 11/05/18 11/06/18 19:36 23:35 01:59 RBC Hgb Hct MCV MCH RDW Plt Count Lymph % (Auto) [place] % (Auto) Lymph # Seg Neutrophils % Seg Neuts % (Manual) Lymphocytes % (Manual) Seg Neutrophils # Lymphocytes # (Manual) POC ABG pH POC ABG pCO2 POC ABG pO2 Sodium Potassium Chloride Carbon Dioxide BUN Creatinine Glucose POC Glucose 174 H 56 L 112 H Calcium C-Reactive Protein Total Protein Albumin TSH Urine pH Urine WBC (Auto) Vancomycin Trough 11/06/18 11/06/18 11/06/18 04:33 05:06 07:24 RBC 2.83 L Hgb 9.3 L Hct 27.9 L MCV 99 H MCH 33 H RDW 15.9 H Plt Count 133 L Lymph % (Auto) [place] % (Auto) Lymph # Seg Neutrophils % Seg Neuts % (Manual) 94.0 H Lymphocytes % (Manual) 4.0 L Seg Neutrophils # Lymphocytes # (Manual) 0.3 L POC ABG pH POC ABG pCO2 32.4 L POC ABG pO2 73 L Sodium Potassium Chloride Carbon Dioxide BUN Creatinine Glucose POC Glucose 139 H Calcium C-Reactive Protein Total Protein Albumin TSH Urine pH Urine WBC (Auto) Vancomycin Trough 11/06/18 11/06/18 11/06/18 07:24 11:52 17:16 RBC Hgb Hct MCV MCH RDW Plt Count Lymph % (Auto) [place] % (Auto) Lymph # Seg Neutrophils % Seg Neuts % (Manual) Lymphocytes % (Manual) Seg Neutrophils # Lymphocytes # (Manual) POC ABG pH POC ABG pCO2 POC ABG pO2 Sodium 136 L Potassium 3.2 L Chloride Carbon Dioxide BUN 59 H Creatinine 2.3 H Glucose 137 H POC Glucose 212 H 194 H Calcium 7.4 L C-Reactive Protein Total Protein Albumin TSH Urine pH Urine WBC (Auto) Vancomycin Trough 11/07/18 11/07/18 11/07/18 00:44 05:56 06:12 RBC 2.64 L Hgb 8.7 L Hct 26.3 L MCV 100 H MCH 33 H RDW 15.7 H Plt Count Lymph % (Auto) 4.6 L [place] % (Auto) Lymph # 0.4 L Seg Neutrophils % 89.4 H Seg Neuts % (Manual) Lymphocytes % (Manual) Seg Neutrophils # 8.3 H Lymphocytes # (Manual) POC ABG pH POC ABG pCO2 POC ABG pO2 Sodium Potassium Chloride Carbon Dioxide BUN Creatinine Glucose POC Glucose 193 H 145 H Calcium C-Reactive Protein Total Protein Albumin TSH Urine pH Urine WBC (Auto) Vancomycin Trough 11/07/18 06:12 RBC Hgb Hct MCV MCH RDW Plt Count Lymph % (Auto) [place] % (Auto) Lymph # Seg Neutrophils % Seg Neuts % (Manual) Lymphocytes % (Manual) Seg Neutrophils # Lymphocytes # (Manual) POC ABG pH POC ABG pCO2 POC ABG pO2 Sodium Potassium Chloride Carbon Dioxide BUN 74 H Creatinine 2.8 H Glucose 143 H POC Glucose Calcium 7.7 L C-Reactive Protein Total Protein Albumin TSH Urine pH Urine WBC (Auto) Vancomycin Trough
[2018-11-07] MEDS ORDERED: NACL 0.9% 500 ML IV SCH ×2 (10:00→11:00)
[2018-11-07] MEDS: PEPCID PO SCH (10:01)
[2018-11-07] MEDS: KEPPRA PO SCH ×2 (10:01→22:07)
--- NOTE | 2018-11-07 12:49 | Progress Note ---
Assessment and Plan Cultures: 10/29/2018 Blood culture: No growth 10/30/2018 sputum culture: MRSA 10/30/2018 urine culture: Mixed growth 11/02/2018 blood culture: no growth A/P: 73-year-old male with prostate cancer, ESRD on hemodialysis, diabetes mellitus, peripheral vascular disease status post right-sided AKA is admitted to the hospital as a transfer from the group home due to altered mental status. Apparently, the patient had been refusing dialysis for a week prior to admission. Now with: 1) Severe sepsis with shock s/p PEA arrest: on pressors, mechanical ventilation. 2) Right-sided pneumonia with acute hypoxic respiratory failure: On mechanical ventilation. Chest x-ray showing right-sided infiltrate. Sputum culture growing MRSA. 3) Possible UTI: Patient with indwelling suprapubic catheter. Also with ESRD on hemodialysis. This makes UA difficult to interpret for infection since quite likely to have urinary sediment. 4) ESRD on hemodialysis: Noncompliant. Renally dose abx. 5) Peripheral vascular disease: Status post right BKA, left TMA. 6) Right gluteal decubitus ulcer with eschar: continue wound care. 7) R sphenoid sinusitis noted on CT: already on abx. Recs: continue renally vancomycin, target pre-dialysis level 10-20 mcg/ml (today is Day 8 of 10) Overall extremely poor prognosis, strongly recommend comfort care Aaron Regan MD [facility] C: [phone] O: [phone] F: [phone] Subjective Date of service: 11/07/18 Principal diagnosis: sepsis, acute resp, failure. Interval history: no fever. remains on pressors. unresponsive. Objective - Exam Narrative Exam: Physical Exam: Constitutional: unresponsive, intubated Head, Ears, Nose: Normocephalic, atraumatic. External ears, nose normal Eyes: Conjunctivae/corneas clear. No icterus. No ptosis. Neck: Supple, no meningeal signs Oral: intubated Cardiovascular: S1, S2 normal. Respiratory: Good air entry, clear to auscultation bilaterally GI: Soft, bowel sounds hypo. Suprapubic cath + Musculoskeletal: Right AKA, left TMA stumps healed. Right gluteal region with eschar. Left femoral HD cath + Skin: No rash or abscess Hem/Lymphatic: No palpable cervical or supraclavicular nodes. No lymphangitis Psych: no agitation Neurological: unresponsive, intubated, on vent. - Constitutional Vitals: Vital Signs Temp Pulse Resp BP Pulse Ox 97.5 F L 97 H 31 H 118/59 100 11/07/18 08:00 11/07/18 11:00 11/07/18 11:00 11/07/18 11:00 11/07/18 11:00 Temperature -Last 24 Hours Temperature 97.5 F Temperature 99.6 F Temperature 99.1 F Temperature 99.6 F Temperature 99.2 F - Labs CBC & Chem 7: 11/07/18 06:12 11/07/18 06:12 Labs: Abnormal lab results 11/06/18 11/07/18 11/07/18 Range/Units 17:16 00:44 05:56 RBC (3.65-5.03) M/mm3 Hgb (11.8-15.2) gm/dl Hct (35.5-45.6) % MCV (84-94) fl MCH (28-32) pg RDW (13.2-15.2) % Lymph % (Auto) (13.4-35.0) % Lymph # (1.2-5.4) K/mm3 Seg Neutrophils % (40.0-70.0) % Seg Neutrophils # (1.8-7.7) K/mm3 BUN (9-20) mg/dL Creatinine (0.8-1.5) mg/dL Glucose (75-100) mg/dL POC Glucose 194 H 193 H 145 H (70-105) Calcium (8.4-10.2) mg/dL 11/07/18 11/07/18 11/07/18 Range/Units 06:12 06:12 12:20 RBC 2.64 L (3.65-5.03) M/mm3 Hgb 8.7 L (11.8-15.2) gm/dl Hct 26.3 L (35.5-45.6) % MCV 100 H (84-94) fl MCH 33 H (28-32) pg RDW 15.7 H (13.2-15.2) % Lymph % (Auto) 4.6 L (13.4-35.0) % Lymph # 0.4 L (1.2-5.4) K/mm3 Seg Neutrophils % 89.4 H (40.0-70.0) % Seg Neutrophils # 8.3 H (1.8-7.7) K/mm3 BUN 74 H (9-20) mg/dL Creatinine 2.8 H (0.8-1.5) mg/dL Glucose 143 H (75-100) mg/dL POC Glucose 207 H (70-105) Calcium 7.7 L (8.4-10.2) mg/dL
--- NOTE | 2018-11-07 15:01 | Progress Note ---
Assessment and Plan 1. ESRD: Patient was last dialyzed 2 days ago. Patient remain hypotensive on pressors. HD today. Monitor for GEOTECHNICIAN needs. 2. FEN: Hyperkalemia, improved. Hypernatremia, improved. UF witH HD as tolerated. 3. Respiratory failure: On vent. 4. Septic Shock: On Levophed. 5. Pneumonia. 6. Anemia: Epogen. Subjective Date of service: 11/07/18 Principal diagnosis: sepsis, acute resp, failure. Interval history: Patient was seen and examined at the bedside. Objective - Vital Signs Vital signs: Vital Signs - 12hr 11/07/18 11/07/18 11/07/18 03:15 03:31 03:45 Temperature Pulse Rate 101 H 103 H 103 H Pulse Rate [ From Monitor] Respiratory 26 H 26 H 17 Rate Blood Pressure 106/55 99/54 101/55 O2 Sat by Pulse 100 99 99 Oximetry 11/07/18 11/07/18 11/07/18 04:00 04:01 04:15 Temperature Pulse Rate 102 H 103 H Pulse Rate [ 102 H From Monitor] Respiratory 25 H 25 H Rate Blood Pressure 100/53 107/61 O2 Sat by Pulse 100 99 100 Oximetry 11/07/18 11/07/18 11/07/18 04:31 04:45 05:01 Temperature Pulse Rate 102 H 101 H 102 H Pulse Rate [ From Monitor] Respiratory 25 H 25 H 25 H Rate Blood Pressure 93/51 97/54 101/55 O2 Sat by Pulse 99 99 99 Oximetry 11/07/18 11/07/18 11/07/18 05:15 05:31 05:45 Temperature Pulse Rate 101 H 104 H 102 H Pulse Rate [ From Monitor] Respiratory 25 H 25 H 30 H Rate Blood Pressure 100/56 114/62 118/58 O2 Sat by Pulse 100 97 98 Oximetry 11/07/18 11/07/18 11/07/18 06:01 06:15 06:31 Temperature Pulse Rate 102 H 101 H 100 H Pulse Rate [ From Monitor] Respiratory 27 H 22 23 Rate Blood Pressure 110/59 103/56 110/59 O2 Sat by Pulse 99 98 96 Oximetry 11/07/18 11/07/18 11/07/18 06:45 07:01 07:15 Temperature Pulse Rate 100 H 102 H 102 H Pulse Rate [ From Monitor] Respiratory 23 24 21 Rate Blood Pressure 116/61 126/66 118/64 O2 Sat by Pulse 95 95 93 Oximetry 11/07/18 11/07/18 11/07/18 07:30 07:45 08:00 Temperature 97.5 F L Pulse Rate 103 H 103 H Pulse Rate [ From Monitor] Respiratory 17 26 H Rate Blood Pressure 117/65 124/67 O2 Sat by Pulse 95 95 100 Oximetry 11/07/18 11/07/18 11/07/18 08:01 08:15 08:30 Temperature Pulse Rate 102 H 103 H 100 H Pulse Rate [ From Monitor] Respiratory 24 18 20 Rate Blood Pressure 115/60 89/50 83/48 O2 Sat by Pulse 95 98 97 Oximetry 11/07/18 11/07/18 11/07/18 08:45 08:58 09:00 Temperature Pulse Rate 99 H 98 H 98 H Pulse Rate [ From Monitor] Respiratory 25 H 21 Rate Blood Pressure 86/47 94/45 94/45 O2 Sat by Pulse 97 97 98 Oximetry 11/07/18 11/07/18 11/07/18 09:15 09:30 09:45 Temperature Pulse Rate 97 H 95 H 96 H Pulse Rate [ From Monitor] Respiratory 24 25 H 25 H Rate Blood Pressure 84/46 103/51 98/49 O2 Sat by Pulse 98 98 99 Oximetry 11/07/18 11/07/18 11/07/18 10:00 10:15 10:30 Temperature Pulse Rate 96 H 96 H 97 H Pulse Rate [ From Monitor] Respiratory 26 H 25 H 11 L Rate Blood Pressure 102/55 100/51 117/57 O2 Sat by Pulse 100 100 100 Oximetry 11/07/18 11/07/18 11/07/18 10:45 11:00 12:00 Temperature 98.0 F Pulse Rate 101 H 97 H Pulse Rate [ From Monitor] Respiratory 25 H 31 H Rate Blood Pressure 89/45 118/59 O2 Sat by Pulse 99 100 Oximetry 11/07/18 13:00 Temperature Pulse Rate 97 H Pulse Rate [ From Monitor] Respiratory Rate Blood Pressure 104/55 O2 Sat by Pulse 100 Oximetry - General Appearance General appearance: well-developed, appears stated age, cachectic, intubated, other (on vent) EENT: ATNC Neck: supple Respiratory: Present: Clear to Ascultation Cardiology: regular, S1S2, no murmurs Gastrointestinal: normoactive bowel sounds, no tenderness, no distended, other (suprapubic catheter) Integumentary: ulcer (left leg) Neurologic: obtunded Musculoskeletal: other (trace extremity edema noted, left groin dialysis catheter) - Lab 11/07/18 06:12 11/07/18 06:12 Most recent lab results Calcium 7.7 mg/dL (8.4-10.2) L 11/07/18 06:12 Phosphorus 3.10 mg/dL (2.5-4.5) 11/05/18 06:36 Medications & Allergies - Medications Allergies/Adverse Reactions: Allergies No Known Allergies Allergy (Verified 01/18/18 20:10) Home Medications: Home Medications Medication Instructions Recorded Confirmed Last Taken Type Acetaminophen [Acetaminophen TAB] 650 mg PO Q4H PRN 03/12/18 10/31/18 Unknown History Calcium Acetate [Phoslo] 667 mg PO TID 03/12/18 10/31/18 05/13/18 17:00 History Carvedilol [Coreg] 6.25 mg PO BID 03/12/18 10/31/18 05/13/18 09:00 History Ergocalciferol 50,000 unit PO QWEEK 03/12/18 10/31/18 05/11/18 09:00 History Apixaban [Eliquis] 2.5 mg PO BID tablet 08/21/18 10/31/18 Unknown Rx Megestrol [Megace] 400 mg PO QDAY 10/31/18 10/31/18 Unknown History Mirtazapine [Remeron] 15 mg PO QHS 10/31/18 10/31/18 Unknown History Elaine-José Rx Tablet 1 tab PO QDAY 10/31/18 10/31/18 Unknown History Sodium Bicarbonate 650 mg PO BID 10/31/18 10/31/18 Unknown History traMADol [Ultram 50 MG tab] 25 mg PO Q12H PRN 10/31/18 10/31/18 Unknown History Active Medications: Generic Name Dose Route Start Last Admin Trade Name Freq PRN Reason Stop Dose Admin Acetaminophen 650 mg 11/02/18 09:25 Tylenol FEEDTUBE Q6H PRN Fever >101 Lipase/Protease/Amylase 1 each 11/01/18 10:04 Pancreazjoselyn Palomo 10,500 Unit FEEDTUBE PRN PRN For Clogged Feeding Tube Epoetin [place] 20,000 unit 11/05/18 10:21 11/05/18 18:44 Procrit SUB-Q 20,000 unit ALEJO PRN Administration hemodialysis Famotidine 20 mg 11/01/18 10:00 11/07/18 10:01 Pepcid PO 20 mg DAILY KIRSTEN Administration Heparin Sodium (Porcine) 5,000 unit 10/29/18 22:00 11/07/18 06:42 Heparin SUB-Q 5,000 unit Q8HR KIRSTEN Administration Norepinephrine 4 mg in 250 mls @ 7.5 mls/hr 10/30/18 01:00 11/07/18 08:57 Levophed Drip 4 Mg/Ns 250 Ml IV 4 mcg/min TITR KIRSTEN 15 mls/hr Administration Protocol 2 MCG/MIN Sodium Chloride 100 mls @ 999 mls/hr 11/07/18 07:09 Nacl 0.9% IV ALEJO PRN Hypotension Vancomycin HCl 500 mg/ Sodium 110 mls @ 66.667 mls/hr 11/07/18 20:00 Chloride IV 11/09/18 23:59 MoWeFr [facility] Insulin Human Lispro 0 unit 10/30/18 10:00 11/07/18 06:51 Humalog SUB-Q Not Given Q6HR [facility] Protocol Levetiracetam 500 mg 11/07/18 10:00 11/07/18 10:01 Keppra PO 500 mg BID KIRSTEN Administration Simple Syrup 15 ml 11/01/18 10:04 11/06/18 00:09 Simple Syrup FEEDTUBE 15 ml PRN PRN Administration Hypoglycemia Simple Syrup 30 ml 11/01/18 10:04 Simple Syrup FEEDTUBE PRN PRN Hypoglycemia Sodium Bicarbonate 325 mg 11/01/18 10:04 Sodium Bicarbonate FEEDTUBE PRN PRN For Clogged Feeding Tube
[2018-11-07] MEDS: PROCRIT SUB-Q PRN (21:35)
[2018-11-07] MEDS: VANCOMYCIN 500 MG in NACL 0.9% 100 ML IV SCH (22:07)
--- NOTE | 2018-11-07 23:49 | Progress Note ---
Assessment and Plan - Patient Problems (1) Altered mental status Current Visit: Yes Status: Acute Qualifiers: Altered mental status type: unspecified Qualified Code(s): R41.82 - Altered mental status, unspecified Plan to address problem: most likely due to sinus infection follow ID. (2) Hyperkalemia Current Visit: Yes Status: Acute Plan to address problem: Treated, and continue to correct with HD. corrected. (3) Hypernatremia Current Visit: Yes Status: Acute Plan to address problem: correct with HD. As above when feasible with the Renal service. patient continues with HD. (4) Uremia Current Visit: Yes Status: Acute Plan to address problem: treat underlying cause. Follow Renal. (5) Acute encephalopathy Current Visit: Yes Status: Chronic Plan to address problem: supportive care. (6) ESRD needing dialysis Current Visit: Yes Status: Chronic Plan to address problem: Continue on HD. as above once feasible. (7) Sepsis Current Visit: Yes Status: Acute Plan to address problem: treat the etiology.Most likely due to sinus infection. Subjective Date of service: 11/07/18 Principal diagnosis: sepsis, acute resp, failure. Interval history: Patient seen/examined,in the ICU. I have spoken to the daughter, and his sister today, regarding plan of care, and prognosis. I have rec less aggressive path, including hospice. They will think about it ,and let me know. Mean while, will continue current management. His prognosis is quite poor at this time. Patient seen/examined, resting in bed, labs reviewed.Still on the vent.If unable to be weaned off the vent, on timely /expected time, will push for LTAC eval/placement at [facility] human [employer] manager to start preparing for this possibility. Patient seen/examined, resting in bed, still not wean able yet.He had HD today. patient seen/examined, resting in bed. labs/records/notes reviewed, including ID consult notes. Cxr with PNA., 24hr Tm 102. Patient seen/examined, resting in bed, NR, BP low, and Levo increased back up ,to maintain any appreciable reading. Labs reviewed. I have discussed/updated the daughter Ramón today, discussed code status again, and prognosis,as well as long time plan/disposition.She has signed a Do NOT Resuscitate, and the other family member suppose to sign hers today, or tomorrow. I have recommended, and she is in agreement to the LTAC placement at [facility], where he can also get trached, if, and when feasible. I want the disability case manager to act on this on timely manner.MRSA positive in the sputum.ID on the case. Patient seen/examined, resting in bed, labs reviewed. Patient is now an AND status.Plan for LTAC referral by the disability case manager, I have spoken to the family about [facility], and she was in agreement. patient seen/examined, resting in bed, records reviewed, case d/w Dr Garcia.I had already spoken to the primary daughter about LTAC this past week, and she was in agreement. I do not think patient has to be trached/peg here before d/c, and transfer to the LTAC, both the patient, and family will have ample time to think tis over ,if /when it comes to that.I will however continue to speak to them. PLs read notes, so we can all be on the same plan for disposition. patient seen/examined, resting in bed. labs/records reviewed, family meeting held with the 3 Daughters by me. Spent time discussing prognosis, trach/peg. they have agreed to these procedures, even if there could be serious complication. I will consult ENT- Dr West,while waiting on EEG results.Once completed, will transfer to the LTAC as agreed to by the family.I have ensured them , that the prognosis is poor, no matter what is done hence forth. patient seen/examined, resting in bed, discussed EEG results with pulm, and with the Nurse. This an abn EEG, and the family had indicated the wish to proceed with treach/peg.Will consult Gen surgery. Objective - Constitutional Vitals: Vital Signs - 12hr 11/07/18 11/07/18 11/07/18 12:00 12:15 12:30 Temperature 98.0 F Pulse Rate 94 H 95 H 94 H Pulse Rate [ From Monitor] Respiratory 30 H 28 H 28 H Rate Blood Pressure 111/59 113/60 104/56 O2 Sat by Pulse 100 100 100 Oximetry O2 Sat by Pulse Oximetry [ Anterior Bilateral] 11/07/18 11/07/18 11/07/18 12:45 13:00 13:15 Temperature Pulse Rate 94 H 95 H 97 H Pulse Rate [ From Monitor] Respiratory 27 H 29 H 29 H Rate Blood Pressure 108/57 104/55 105/51 O2 Sat by Pulse 100 100 100 Oximetry O2 Sat by Pulse Oximetry [ Anterior Bilateral] 11/07/18 11/07/18 11/07/18 13:30 13:45 14:00 Temperature 98.8 F Pulse Rate 94 H 97 H 95 H Pulse Rate [ From Monitor] Respiratory 22 13 22 Rate Blood Pressure 103/51 117/60 100/56 O2 Sat by Pulse 100 100 100 Oximetry O2 Sat by Pulse Oximetry [ Anterior Bilateral] 11/07/18 11/07/18 11/07/18 14:15 14:30 14:45 Temperature Pulse Rate 93 H 93 H 93 H Pulse Rate [ From Monitor] Respiratory 26 H 21 27 H Rate Blood Pressure 102/55 120/63 102/59 O2 Sat by Pulse 100 100 100 Oximetry O2 Sat by Pulse Oximetry [ Anterior Bilateral] 11/07/18 11/07/18 11/07/18 15:00 15:15 15:30 Temperature Pulse Rate 94 H 94 H 93 H Pulse Rate [ From Monitor] Respiratory 21 27 H 26 H Rate Blood Pressure 104/58 118/63 116/59 O2 Sat by Pulse 100 100 100 Oximetry O2 Sat by Pulse Oximetry [ Anterior Bilateral] 11/07/18 11/07/18 11/07/18 15:45 16:00 16:15 Temperature Pulse Rate 95 H 101 H 99 H Pulse Rate [ From Monitor] Respiratory 24 14 30 H Rate Blood Pressure 114/59 127/61 108/60 O2 Sat by Pulse 100 100 100 Oximetry O2 Sat by Pulse Oximetry [ Anterior Bilateral] 11/07/18 11/07/18 11/07/18 16:30 16:35 16:45 Temperature Pulse Rate 101 H 101 H 100 H Pulse Rate [ From Monitor] Respiratory 27 H 31 H 28 H Rate Blood Pressure 121/63 121/63 115/58 O2 Sat by Pulse 100 100 100 Oximetry O2 Sat by Pulse Oximetry [ Anterior Bilateral] 11/07/18 11/07/18 11/07/18 17:00 17:15 17:30 Temperature Pulse Rate 101 H 103 H 103 H Pulse Rate [ From Monitor] Respiratory 24 26 H 32 H Rate Blood Pressure 109/61 113/64 118/65 O2 Sat by Pulse 100 100 100 Oximetry O2 Sat by Pulse Oximetry [ Anterior Bilateral] 11/07/18 11/07/18 11/07/18 17:45 18:00 18:15 Temperature Pulse Rate 102 H 102 H 102 H Pulse Rate [ From Monitor] Respiratory 27 H 22 28 H Rate Blood Pressure 116/63 112/60 106/58 O2 Sat by Pulse 100 100 100 Oximetry O2 Sat by Pulse Oximetry [ Anterior Bilateral] 11/07/18 11/07/18 11/07/18 18:30 18:45 19:00 Temperature 99.8 F H Pulse Rate 104 H 103 H 102 H Pulse Rate [ From Monitor] Respiratory 28 H 22 32 H Rate Blood Pressure 132/67 116/63 113/63 O2 Sat by Pulse 100 100 99 Oximetry O2 Sat by Pulse 99 Oximetry [ Anterior Bilateral] 11/07/18 11/07/18 11/07/18 19:15 19:30 19:45 Temperature Pulse Rate 98 H 98 H 100 H Pulse Rate [ From Monitor] Respiratory 25 H 31 H 26 H Rate Blood Pressure 113/60 103/57 109/57 O2 Sat by Pulse 99 98 98 Oximetry O2 Sat by Pulse Oximetry [ Anterior Bilateral] 11/07/18 11/07/18 11/07/18 19:47 20:00 20:15 Temperature 99.0 F Pulse Rate 100 H 102 H 104 H Pulse Rate [ 102 H From Monitor] Respiratory 31 H 28 H 25 H Rate Blood Pressure 109/57 124/67 118/71 O2 Sat by Pulse 98 98 98 Oximetry O2 Sat by Pulse Oximetry [ Anterior Bilateral] 11/07/18 11/07/18 11/07/18 20:30 20:45 21:00 Temperature Pulse Rate 106 H 106 H 110 H Pulse Rate [ From Monitor] Respiratory 18 28 H 28 H Rate Blood Pressure 124/71 118/65 113/69 O2 Sat by Pulse 96 95 96 Oximetry O2 Sat by Pulse Oximetry [ Anterior Bilateral] 11/07/18 11/07/18 11/07/18 21:15 21:30 21:45 Temperature Pulse Rate 108 H 109 H 108 H Pulse Rate [ From Monitor] Respiratory 27 H 29 H 24 Rate Blood Pressure 105/63 118/69 132/81 O2 Sat by Pulse 97 97 98 Oximetry O2 Sat by Pulse Oximetry [ Anterior Bilateral] 11/07/18 11/07/18 11/07/18 22:00 22:05 22:15 Temperature 99.0 F Pulse Rate 107 H 107 H 110 H Pulse Rate [ From Monitor] Respiratory 26 H 22 25 H Rate Blood Pressure 123/75 132/81 123/75 O2 Sat by Pulse 98 98 Oximetry O2 Sat by Pulse 98 Oximetry [ Anterior Bilateral] 11/07/18 11/07/18 11/07/18 22:30 22:45 23:00 Temperature Pulse Rate 108 H 108 H 107 H Pulse Rate [ From Monitor] Respiratory 26 H 27 H 24 Rate Blood Pressure 116/66 104/57 91/51 O2 Sat by Pulse 98 97 98 Oximetry O2 Sat by Pulse Oximetry [ Anterior Bilateral] 11/07/18 23:39 Temperature Pulse Rate 107 H Pulse Rate [ From Monitor] Respiratory 31 H Rate Blood Pressure 91/51 O2 Sat by Pulse 98 Oximetry O2 Sat by Pulse Oximetry [ Anterior Bilateral] General appearance: Present: no acute distress, cachectic - EENT Eyes: PERRL, EOM intact ENT: hearing intact, clear oral mucosa Ears: bilateral: normal - Neck Neck: supple, normal ROM - Respiratory Respiratory: bilateral: other (vent support.) - Breasts Breasts: deferred - Cardiovascular Rhythm: regular Heart Sounds: Present: S1 & S2. Absent: gallop, rub Extremities: pulses intact, No edema, normal color, Full ROM - Gastrointestinal General gastrointestinal: Present: soft, non-tender, non-distended, normal bowel sounds Rectal Exam: deferred - Genitourinary Male genitourinary: deferred - Integumentary Integumentary: clear, warm, dry - Musculoskeletal Musculoskeletal: 1, strength equal bilaterally - Neurologic Neurologic: moves all extremities - Psychiatric Psychiatric: memory intact, appropriate mood/affect, intact judgment & insight - Labs CBC & Chem 7: 11/07/18 06:12 11/07/18 06:12 Labs: Abnormal lab results 11/07/18 11/07/18 11/07/18 Range/Units 00:44 05:56 06:12 RBC 2.64 L (3.65-5.03) M/mm3 Hgb 8.7 L (11.8-15.2) gm/dl Hct 26.3 L (35.5-45.6) % MCV 100 H (84-94) fl MCH 33 H (28-32) pg RDW 15.7 H (13.2-15.2) % Lymph % (Auto) 4.6 L (13.4-35.0) % Lymph # 0.4 L (1.2-5.4) K/mm3 Seg Neutrophils % 89.4 H (40.0-70.0) % Seg Neutrophils # 8.3 H (1.8-7.7) K/mm3 BUN (9-20) mg/dL Creatinine (0.8-1.5) mg/dL Glucose (75-100) mg/dL POC Glucose 193 H 145 H (70-105) Calcium (8.4-10.2) mg/dL 11/07/18 11/07/18 11/07/18 Range/Units 06:12 12:20 17:27 RBC (3.65-5.03) M/mm3 Hgb (11.8-15.2) gm/dl Hct (35.5-45.6) % MCV (84-94) fl MCH (28-32) pg RDW (13.2-15.2) % Lymph % (Auto) (13.4-35.0) % Lymph # (1.2-5.4) K/mm3 Seg Neutrophils % (40.0-70.0) % Seg Neutrophils # (1.8-7.7) K/mm3 BUN 74 H (9-20) mg/dL Creatinine 2.8 H (0.8-1.5) mg/dL Glucose 143 H (75-100) mg/dL POC Glucose 207 H 170 H (70-105) Calcium 7.7 L (8.4-10.2) mg/dL Medications & Allergies - Medications Allergies/Adverse Reactions: Allergies No Known Allergies Allergy (Verified 01/18/18 20:10) Home Medications: Home Medications Medication Instructions Recorded Confirmed Last Taken Type Acetaminophen [Acetaminophen TAB] 650 mg PO Q4H PRN 03/12/18 10/31/18 Unknown History Calcium Acetate [Phoslo] 667 mg PO TID 03/12/18 10/31/18 05/13/18 17:00 History Carvedilol [Coreg] 6.25 mg PO BID 03/12/18 10/31/18 05/13/18 09:00 History Ergocalciferol 50,000 unit PO QWEEK 03/12/18 10/31/18 05/11/18 09:00 History Apixaban [Eliquis] 2.5 mg PO BID tablet 08/21/18 10/31/18 Unknown Rx Megestrol [Megace] 400 mg PO QDAY 10/31/18 10/31/18 Unknown History Mirtazapine [Remeron] 15 mg PO QHS 10/31/18 10/31/18 Unknown History Elaine-José Rx Tablet 1 tab PO QDAY 10/31/18 10/31/18 Unknown History Sodium Bicarbonate 650 mg PO BID 10/31/18 10/31/18 Unknown History traMADol [Ultram 50 MG tab] 25 mg PO Q12H PRN 10/31/18 10/31/18 Unknown History Active Medications: Generic Name Dose Route Start Last Admin Trade Name Freq PRN Reason Stop Dose Admin Acetaminophen 650 mg 11/02/18 09:25 Tylenol FEEDTUBE Q6H PRN Fever >101 Lipase/Protease/Amylase 1 each 11/01/18 10:[address] 10,500 Unit FEEDTUBE PRN PRN For Clogged Feeding Tube Epoetin Cliff 20,000 unit 11/05/18 10:21 11/07/18 21:35 Procrit SUB-Q 20,000 unit ALEJO PRN Administration hemodialysis Famotidine 20 mg 11/01/18 10:00 11/07/18 10:01 Pepcid PO 20 mg DAILY KIRSTEN Administration Heparin Sodium (Porcine) 5,000 unit 10/29/18 22:00 11/07/18 22:08 Heparin SUB-Q 5,000 unit Q8HR KIRSTEN Administration Norepinephrine 4 mg in 250 mls @ 7.5 mls/hr 10/30/18 01:00 11/07/18 18:25 Levophed Drip 4 Mg/Ns 250 Ml IV 6 mcg/min TITR KIRSTEN 22.5 mls/hr Administration Protocol 2 MCG/MIN Sodium Chloride 100 mls @ 999 mls/hr 11/07/18 07:09 Nacl 0.9% IV ALEJO PRN Hypotension Vancomycin HCl 500 mg/ Sodium 110 mls @ 66.667 mls/hr 11/07/18 20:00 11/07/18 22:07 Chloride IV 11/09/18 23:59 66.667 mls/hr MoWeFr KIRSTEN Administration Insulin Human Lispro 0 unit 10/30/18 10:00 11/07/18 18:18 Humalog SUB-Q 3 unit Q6HR KIRSTEN Administration Protocol Levetiracetam 500 mg 11/07/18 10:00 11/07/18 22:07 Keppra PO 500 mg BID KIRSTEN Administration Simple Syrup 15 ml 11/01/18 10:04 11/06/18 00:09 Simple Syrup FEEDTUBE 15 ml PRN PRN Administration Hypoglycemia Simple Syrup 30 ml 11/01/18 10:04 Simple Syrup FEEDTUBE PRN PRN Hypoglycemia Sodium Bicarbonate 325 mg 11/01/18 10:04 Sodium Bicarbonate FEEDTUBE PRN PRN For Clogged Feeding Tube
[2018-11-08] MEDS: HumaLOG SUB-Q SCH ×4 (01:00→18:31)
[2018-11-08] MEDS: HEPARIN SUB-Q SCH ×3 (06:22→22:02)
[2018-11-08 07:38] LABS: INR 1.18 (0.87-1.13)
[2018-11-08 07:39] LABS: Partial Thromboplastin Time 35.4 Sec. (24.2-36.6)
--- NOTE | 2018-11-08 09:56 | Progress Note ---
Assessment and Plan -s/p PEA arrest -Severe sepsis with septic shock -Fevers, Tracheal aspirate positive for MRSA -Acute hypoxic respiratory failure on MVS -Acute encephalopathy( toxic, metabolic) -Severe protein calorie malnutrition -Hyperkalemia( resolved) -ESRD on HD, clotted graft femoral HD catheter -Hyperosmolar hyperglycemic state( improving) -Hypotension, multifactorial, -Hypernatremia, resolved -PVD s/p right BKA -Prostate cancer s/p suprapubic catheter -Continue with MVS -Lung protective strategies -VAP bundle addressed. -Supplemental oxygen, wean for O2 sats>90% -Daily SBTs as tolerated -VTE prophylaxis( heparin) -Stress ulcer prophylaxis( Famotidine) -High dose sliding scale insulin with accuchecks -Tube feedings with aspiration precautions, HOB >40 -Glycemic control, target blood glucose of 140-180mg/dL -Free water flushes -Continue wound care by wound care team -Supportive HD -Wean vasopressor support for MAP>65 -Volume resuscitation -ABG and CXR in am -Antibitoics per ID CONDITION: CRITICAL PROGNOSIS: GUARDED CODE STATUS: DNAR I have spent 35 minutes in the direct care of this critically ill patient, excluding procedure time. Critical care time was spent on this patient and during his initial evaluation, multiple re-evaluations, ordering and interpretation of labs and imaging, medications, discussion with the ICU care team. There is a high probability of clinically significant, sudden, or life- threatening deterioration that has required multiple evaluations and direct attention, intervention, and management. Subjective Date of service: 11/08/18 Principal diagnosis: sepsis, acute resp, failure. Interval history: Patient is seen today for: Acute hypoxemic respiratory failure on MVS; Severe sepsis with septic shock; acute encephaloapthy; Seen and examined at bedside; 24hour events reviewed; nursing and respiratory care staff consulted; Fevers, remains on norepinephrine for hemodynamic support Remains unresponsive, on mechanical ventilatory support, no dys-synchrony Objective - Exam Narrative Exam: Physical Exam: Constitutional: unresponsive. on mechnaical ventilatory support Head, Ears, Nose: Normocephalic, atraumatic. External ears, nose normal. Eyes: Conjunctivae/corneas clear. No icterus. No ptosis. Neck: trach + Cardiovascular: S1, S2 normal. Respiratory: Good air entry, clear to auscultation bilaterally GI: Soft, bowel sounds +. PEG + Suprapubic catheter + Musculoskeletal: Right AKA, left TMA stumps healed. Right gluteal region with eschar. Left femoral trialysis cath +. Edema + Skin: No rash or abscess Hem/Lymphatic: No palpable cervical or supraclavicular nodes. No lymphangitis Psych: no agitation Neurological: unresponsive, intubated, on vent. Vital Signs - 12hr 11/07/18 11/07/18 11/07/18 22:00 22:05 22:15 Temperature 99.0 F Pulse Rate 107 H 107 H 110 H Pulse Rate [ From Monitor] Respiratory 26 H 22 25 H Rate Blood Pressure 123/75 132/81 123/75 O2 Sat by Pulse 98 98 Oximetry O2 Sat by Pulse 98 Oximetry [ Anterior Bilateral] 11/07/18 11/07/18 11/07/18 22:30 22:42 22:45 Temperature Pulse Rate 108 H 107 H 108 H Pulse Rate [ From Monitor] Respiratory 26 H 28 H 27 H Rate Blood Pressure 116/66 113/69 104/57 O2 Sat by Pulse 98 98 97 Oximetry O2 Sat by Pulse Oximetry [ Anterior Bilateral] 11/07/18 11/07/18 11/07/18 23:00 23:05 23:15 Temperature Pulse Rate 107 H 107 H 108 H Pulse Rate [ From Monitor] Respiratory 24 22 27 H Rate Blood Pressure 91/51 91/51 105/59 O2 Sat by Pulse 98 98 98 Oximetry O2 Sat by Pulse Oximetry [ Anterior Bilateral] 11/07/18 11/07/18 11/07/18 23:30 23:39 23:45 Temperature Pulse Rate 108 H 107 H 108 H Pulse Rate [ From Monitor] Respiratory 28 H 31 H 27 H Rate Blood Pressure 106/58 91/51 95/52 O2 Sat by Pulse 97 98 97 Oximetry O2 Sat by Pulse Oximetry [ Anterior Bilateral] 11/08/18 11/08/18 11/08/18 00:00 00:15 00:30 Temperature 98.9 F Pulse Rate 108 H 109 H 108 H Pulse Rate [ 108 H From Monitor] Respiratory 28 H 27 H 26 H Rate Blood Pressure 100/56 97/57 98/56 O2 Sat by Pulse 98 98 98 Oximetry O2 Sat by Pulse Oximetry [ Anterior Bilateral] 11/08/18 11/08/18 11/08/18 00:45 01:00 01:15 Temperature Pulse Rate 108 H 108 H 108 H Pulse Rate [ From Monitor] Respiratory 26 H 26 H 28 H Rate Blood Pressure 99/58 91/52 100/56 O2 Sat by Pulse 98 98 98 Oximetry O2 Sat by Pulse Oximetry [ Anterior Bilateral] 11/08/18 11/08/18 11/08/18 01:30 01:45 02:00 Temperature Pulse Rate 106 H 107 H 109 H Pulse Rate [ From Monitor] Respiratory 30 H 30 H 31 H Rate Blood Pressure 92/53 95/52 95/52 O2 Sat by Pulse 99 99 99 Oximetry O2 Sat by Pulse Oximetry [ Anterior Bilateral] 11/08/18 11/08/18 11/08/18 02:15 02:30 02:45 Temperature Pulse Rate 110 H 110 H 110 H Pulse Rate [ From Monitor] Respiratory 30 H 30 H 31 H Rate Blood Pressure 91/57 100/54 93/54 O2 Sat by Pulse 99 100 100 Oximetry O2 Sat by Pulse Oximetry [ Anterior Bilateral] 11/08/18 11/08/18 11/08/18 03:00 03:15 03:30 Temperature Pulse Rate 111 H 112 H 110 H Pulse Rate [ From Monitor] Respiratory 30 H 29 H 32 H Rate Blood Pressure 100/56 101/56 88/54 O2 Sat by Pulse 99 99 99 Oximetry O2 Sat by Pulse Oximetry [ Anterior Bilateral] 11/08/18 11/08/18 11/08/18 03:45 03:52 04:00 Temperature 99.3 F Pulse Rate 110 H 110 H Pulse Rate [ 110 H From Monitor] Respiratory 29 H 28 H Rate Blood Pressure 96/56 90/55 O2 Sat by Pulse 98 99 Oximetry O2 Sat by Pulse Oximetry [ Anterior Bilateral] 11/08/18 11/08/18 11/08/18 04:15 04:30 04:36 Temperature Pulse Rate 109 H 110 H 110 H Pulse Rate [ From Monitor] Respiratory 22 25 H 27 H Rate Blood Pressure 93/53 93/50 93/50 O2 Sat by Pulse 99 98 98 Oximetry O2 Sat by Pulse Oximetry [ Anterior Bilateral] 11/08/18 11/08/18 11/08/18 04:45 05:00 05:15 Temperature Pulse Rate 109 H 110 H 109 H Pulse Rate [ From Monitor] Respiratory 23 29 H 16 Rate Blood Pressure 86/50 92/50 94/48 O2 Sat by Pulse 98 98 100 Oximetry O2 Sat by Pulse Oximetry [ Anterior Bilateral] 11/08/18 11/08/18 11/08/18 05:30 05:45 06:00 Temperature Pulse Rate 110 H 109 H 110 H Pulse Rate [ From Monitor] Respiratory 28 H 25 H 25 H Rate Blood Pressure 89/56 101/54 100/55 O2 Sat by Pulse 99 99 98 Oximetry O2 Sat by Pulse Oximetry [ Anterior Bilateral] 11/08/18 11/08/18 11/08/18 06:15 06:30 06:45 Temperature Pulse Rate 111 H 110 H 110 H Pulse Rate [ From Monitor] Respiratory 26 H 23 24 Rate Blood Pressure 106/56 112/56 86/44 O2 Sat by Pulse 99 99 97 Oximetry O2 Sat by Pulse Oximetry [ Anterior Bilateral] 11/08/18 11/08/18 11/08/18 07:00 07:15 07:30 Temperature Pulse Rate 113 H 112 H 114 H Pulse Rate [ From Monitor] Respiratory 24 26 H 28 H Rate Blood Pressure 103/45 94/49 89/52 O2 Sat by Pulse 98 98 98 Oximetry O2 Sat by Pulse Oximetry [ Anterior Bilateral] 11/08/18 11/08/18 11/08/18 07:45 08:00 08:15 Temperature 101.9 F H Pulse Rate 115 H 118 H 118 H Pulse Rate [ 116 H From Monitor] Respiratory 32 H 19 26 H Rate Blood Pressure 98/54 119/69 119/69 O2 Sat by Pulse 99 98 97 Oximetry O2 Sat by Pulse Oximetry [ Anterior Bilateral] 11/08/18 11/08/18 11/08/18 08:30 08:45 09:00 Temperature Pulse Rate 116 H 116 H 115 H Pulse Rate [ From Monitor] Respiratory 30 H 29 H 33 H Rate Blood Pressure 105/49 96/53 102/50 O2 Sat by Pulse 98 98 98 Oximetry O2 Sat by Pulse Oximetry [ Anterior Bilateral] 11/08/18 11/08/18 09:15 09:30 Temperature Pulse Rate 115 H 115 H Pulse Rate [ From Monitor] Respiratory 27 H 30 H Rate Blood Pressure 97/49 100/51 O2 Sat by Pulse 98 98 Oximetry O2 Sat by Pulse Oximetry [ Anterior Bilateral] CBC and BMP: 11/16/18 05:45 11/16/18 05:45 ABG, PT/INR, D-dimer: ABG POC ABG pH 7.384 (7.35-7.45) 11/07/18 11:37 POC ABG pCO2 35.9 (35-45) 11/07/18 11:37 POC ABG pO2 94 (80-105) 11/07/18 11:37 POC ABG HCO3 21.5 (22-26 mml/L) 11/07/18 11:37 POC ABG Total CO2 23 (23-27mmol/L) 11/07/18 11:37 POC ABG O2 Sat 97 11/07/18 11:37 PT/INR, D-dimer PT 15.8 Sec. (12.2-14.9) H 11/08/18 07:09 INR 1.18 (0.87-1.13) H 11/08/18 07:09 Abnormal lab findings: Abnormal Labs 10/29/18 10/29/18 10/29/18 17:13 17:13 17:13 RBC 3.62 L Hgb Hct MCV 102 H MCH 34 H RDW 19.6 H Plt Count Lymph % (Auto) [place] % (Auto) 7.8 H Lymph # Seg Neutrophils % 71.2 H Seg Neuts % (Manual) Lymphocytes % (Manual) Seg Neutrophils # Lymphocytes # (Manual) PT INR POC ABG pH POC ABG pCO2 POC ABG pO2 Sodium 164 H* Potassium 6.2 H* Chloride 127.5 H Carbon Dioxide BUN 178 H Creatinine 4.2 H Glucose 131 H POC Glucose Calcium 10.7 H C-Reactive Protein Total Protein 9.5 H Albumin 2.6 L TSH 5.310 H Urine pH Urine WBC (Auto) Vancomycin Trough 10/29/18 10/30/18 10/30/18 23:57 00:06 04:35 RBC Hgb Hct MCV MCH RDW Plt Count Lymph % (Auto) [place] % (Auto) Lymph # Seg Neutrophils % Seg Neuts % (Manual) Lymphocytes % (Manual) Seg Neutrophils # Lymphocytes # (Manual) PT INR POC ABG pH 7.488 H POC ABG pCO2 32.1 L 34.9 L POC ABG pO2 144 H Sodium Potassium Chloride Carbon Dioxide BUN Creatinine Glucose POC Glucose 131 H Calcium C-Reactive Protein Total Protein Albumin TSH Urine pH Urine WBC (Auto) Vancomycin Trough 10/30/18 10/30/18 10/30/18 05:13 08:54 08:54 RBC 3.56 L Hgb 11.7 L Hct MCV 102 H MCH 33 H RDW 19.2 H Plt Count Lymph % (Auto) [place] % (Auto) Lymph # Seg Neutrophils % Seg Neuts % (Manual) Lymphocytes % (Manual) Seg Neutrophils # Lymphocytes # (Manual) PT INR POC ABG pH POC ABG pCO2 POC ABG pO2 Sodium Potassium Chloride Carbon Dioxide BUN Creatinine Glucose POC Glucose 316 H Calcium C-Reactive Protein 5.20 H Total Protein Albumin 2.2 L TSH Urine pH Urine WBC (Auto) Vancomycin Trough 10/30/18 10/30/18 10/30/18 08:59 12:03 18:30 RBC Hgb Hct MCV MCH RDW Plt Count Lymph % (Auto) [place] % (Auto) Lymph # Seg Neutrophils % Seg Neuts % (Manual) Lymphocytes % (Manual) Seg Neutrophils # Lymphocytes # (Manual) PT INR POC ABG pH POC ABG pCO2 POC ABG pO2 Sodium 146 H D Potassium Chloride Carbon Dioxide BUN 86 H Creatinine 2.7 H Glucose 262 H POC Glucose 232 H 57 L Calcium C-Reactive Protein Total Protein Albumin TSH Urine pH Urine WBC (Auto) Vancomycin Trough 10/30/18 10/30/18 10/30/18 18:39 19:07 19:42 RBC Hgb Hct MCV MCH RDW Plt Count Lymph % (Auto) [place] % (Auto) Lymph # Seg Neutrophils % Seg Neuts % (Manual) Lymphocytes % (Manual) Seg Neutrophils # Lymphocytes # (Manual) PT INR POC ABG pH POC ABG pCO2 POC ABG pO2 Sodium Potassium Chloride Carbon Dioxide BUN Creatinine Glucose POC Glucose < 40 L 51 L Calcium C-Reactive Protein Total Protein Albumin TSH Urine pH 8.0 H Urine WBC (Auto) > 182.0 H Vancomycin Trough 10/30/18 10/30/18 10/30/18 19:51 23:13 23:20 RBC Hgb Hct MCV MCH RDW Plt Count Lymph % (Auto) [place] % (Auto) Lymph # Seg Neutrophils % Seg Neuts % (Manual) Lymphocytes % (Manual) Seg Neutrophils # Lymphocytes # (Manual) PT INR POC ABG pH POC ABG pCO2 POC ABG pO2 Sodium Potassium Chloride 108.5 H Carbon Dioxide 21 L BUN 96 H Creatinine 3.0 H Glucose 865 H* 150 H POC Glucose 152 H Calcium C-Reactive Protein Total Protein Albumin TSH Urine pH Urine WBC (Auto) Vancomycin Trough 10/30/18 10/31/18 10/31/18 23:40 04:43 04:43 RBC Hgb Hct MCV 100 H MCH 33 H RDW 18.1 H Plt Count Lymph % (Auto) [place] % (Auto) Lymph # Seg Neutrophils % Seg Neuts % (Manual) Lymphocytes % (Manual) 4.0 L Seg Neutrophils # Lymphocytes # (Manual) 0.3 L PT INR POC ABG pH POC ABG pCO2 POC ABG pO2 Sodium Potassium Chloride Carbon Dioxide 19 L BUN 98 H Creatinine 3.2 H Glucose 184 H POC Glucose 145 H Calcium C-Reactive Protein Total Protein Albumin TSH Urine pH Urine WBC (Auto) Vancomycin Trough 10/31/18 10/31/18 10/31/18 05:44 11:44 13:19 RBC Hgb Hct MCV MCH RDW Plt Count Lymph % (Auto) [place] % (Auto) Lymph # Seg Neutrophils % Seg Neuts % (Manual) Lymphocytes % (Manual) Seg Neutrophils # Lymphocytes # (Manual) PT INR POC ABG pH POC ABG pCO2 POC ABG pO2 64 L Sodium Potassium Chloride Carbon Dioxide BUN Creatinine Glucose POC Glucose 142 H 196 H Calcium C-Reactive Protein Total Protein Albumin TSH Urine pH Urine WBC (Auto) Vancomycin Trough 10/31/18 11/01/18 11/01/18 17:36 04:07 04:07 RBC 3.40 L Hgb 11.2 L Hct 33.6 L MCV 99 H MCH 33 H RDW 17.5 H Plt Count Lymph % (Auto) [place] % (Auto) Lymph # Seg Neutrophils % Seg Neuts % (Manual) 80.0 H Lymphocytes % (Manual) 4.0 L Seg Neutrophils # Lymphocytes # (Manual) 0.3 L PT INR POC ABG pH POC ABG pCO2 POC ABG pO2 Sodium Potassium Chloride Carbon Dioxide 19 L BUN 108 H Creatinine 3.9 H Glucose 138 H POC Glucose 174 H Calcium 7.9 L C-Reactive Protein Total Protein Albumin TSH Urine pH Urine WBC (Auto) Vancomycin Trough 11/01/18 11/01/18 11/01/18 05:24 05:36 13:09 RBC Hgb Hct MCV MCH RDW Plt Count Lymph % (Auto) [place] % (Auto) Lymph # Seg Neutrophils % Seg Neuts % (Manual) Lymphocytes % (Manual) Seg Neutrophils # Lymphocytes # (Manual) PT INR POC ABG pH POC ABG pCO2 POC ABG pO2 65 L Sodium Potassium Chloride Carbon Dioxide BUN Creatinine Glucose POC Glucose 153 H 249 H Calcium C-Reactive Protein Total Protein Albumin TSH Urine pH Urine WBC (Auto) Vancomycin Trough 11/01/18 11/02/18 11/02/18 18:11 05:04 07:17 RBC 3.08 L Hgb 10.1 L Hct 30.1 L MCV 98 H MCH 33 H RDW 16.7 H Plt Count Lymph % (Auto) [place] % (Auto) Lymph # Seg Neutrophils % Seg Neuts % (Manual) 92.0 H Lymphocytes % (Manual) 3.0 L Seg Neutrophils # Lymphocytes # (Manual) 0.2 L PT INR POC ABG pH POC ABG pCO2 POC ABG pO2 Sodium Potassium Chloride Carbon Dioxide BUN Creatinine Glucose POC Glucose 175 H 118 H Calcium C-Reactive Protein Total Protein Albumin TSH Urine pH Urine WBC (Auto) Vancomycin Trough 11/02/18 11/02/18 11/02/18 07:54 09:32 12:28 RBC Hgb Hct MCV MCH RDW Plt Count Lymph % (Auto) [place] % (Auto) Lymph # Seg Neutrophils % Seg Neuts % (Manual) Lymphocytes % (Manual) Seg Neutrophils # Lymphocytes # (Manual) PT INR POC ABG pH 7.514 H POC ABG pCO2 POC ABG pO2 70 L Sodium 135 L Potassium Chloride Carbon Dioxide BUN 48 H Creatinine 2.2 H Glucose 170 H POC Glucose 242 H Calcium 7.4 L C-Reactive Protein Total Protein Albumin TSH Urine pH Urine WBC (Auto) Vancomycin Trough 11/02/18 11/03/18 11/03/18 23:32 04:34 05:10 RBC 2.87 L Hgb 9.4 L Hct 28.5 L MCV 99 H MCH 33 H RDW 16.7 H Plt Count Lymph % (Auto) [place] % (Auto) Lymph # Seg Neutrophils % Seg Neuts % (Manual) 91.0 H Lymphocytes % (Manual) 4.0 L Seg Neutrophils # Lymphocytes # (Manual) 0.3 L PT INR POC ABG pH POC ABG pCO2 33.2 L POC ABG pO2 76 L Sodium Potassium Chloride Carbon Dioxide BUN Creatinine Glucose POC Glucose 177 H Calcium C-Reactive Protein Total Protein Albumin TSH Urine pH Urine WBC (Auto) Vancomycin Trough 11/03/18 11/03/18 11/03/18 06:04 12:26 18:43 RBC Hgb Hct MCV MCH RDW Plt Count Lymph % (Auto) [place] % (Auto) Lymph # Seg Neutrophils % Seg Neuts % (Manual) Lymphocytes % (Manual) Seg Neutrophils # Lymphocytes # (Manual) PT INR POC ABG pH POC ABG pCO2 POC ABG pO2 Sodium Potassium Chloride Carbon Dioxide BUN Creatinine Glucose POC Glucose 168 H 196 H 153 H Calcium C-Reactive Protein Total Protein Albumin TSH Urine pH Urine WBC (Auto) Vancomycin Trough 11/03/18 11/04/18 11/04/18 23:34 03:50 05:05 RBC 2.74 L Hgb 9.1 L Hct 27.3 L MCV 99 H MCH 33 H RDW 16.5 H Plt Count Lymph % (Auto) [place] % (Auto) Lymph # Seg Neutrophils % Seg Neuts % (Manual) 87.0 H Lymphocytes % (Manual) 7.0 L Seg Neutrophils # Lymphocytes # (Manual) 0.5 L PT INR POC ABG pH POC ABG pCO2 31.7 L POC ABG pO2 74 L Sodium Potassium Chloride Carbon Dioxide BUN Creatinine Glucose POC Glucose 213 H Calcium C-Reactive Protein Total Protein Albumin TSH Urine pH Urine WBC (Auto) Vancomycin Trough 11/04/18 11/04/18 11/04/18 05:05 05:23 12:26 RBC Hgb Hct MCV MCH RDW Plt Count Lymph % (Auto) [place] % (Auto) Lymph # Seg Neutrophils % Seg Neuts % (Manual) Lymphocytes % (Manual) Seg Neutrophils # Lymphocytes # (Manual) PT INR POC ABG pH POC ABG pCO2 POC ABG pO2 Sodium Potassium Chloride Carbon Dioxide BUN 84 H Creatinine 3.3 H Glucose 177 H POC Glucose 196 H 182 H Calcium 7.6 L C-Reactive Protein Total Protein Albumin TSH Urine pH Urine WBC (Auto) Vancomycin Trough 11/04/18 11/04/18 11/05/18 13:25 22:36 05:07 RBC Hgb Hct MCV MCH RDW Plt Count Lymph % (Auto) [place] % (Auto) Lymph # Seg Neutrophils % Seg Neuts % (Manual) Lymphocytes % (Manual) Seg Neutrophils # Lymphocytes # (Manual) PT INR POC ABG pH POC ABG pCO2 30.1 L POC ABG pO2 63 L Sodium Potassium Chloride Carbon Dioxide BUN Creatinine Glucose POC Glucose 159 H Calcium C-Reactive Protein Total Protein Albumin TSH Urine pH Urine WBC (Auto) Vancomycin Trough 4.4 L 11/05/18 11/05/18 11/05/18 05:42 06:36 12:54 RBC Hgb Hct MCV MCH RDW Plt Count Lymph % (Auto) [place] % (Auto) Lymph # Seg Neutrophils % Seg Neuts % (Manual) Lymphocytes % (Manual) Seg Neutrophils # Lymphocytes # (Manual) PT INR POC ABG pH POC ABG pCO2 POC ABG pO2 Sodium 134 L Potassium 3.4 L Chloride Carbon Dioxide 18 L BUN 93 H Creatinine 3.7 H Glucose 230 H POC Glucose 233 H 237 H Calcium 7.8 L C-Reactive Protein Total Protein Albumin TSH Urine pH Urine WBC (Auto) Vancomycin Trough 11/05/18 11/05/18 11/06/18 19:36 23:35 01:59 RBC Hgb Hct MCV MCH RDW Plt Count Lymph % (Auto) [place] % (Auto) Lymph # Seg Neutrophils % Seg Neuts % (Manual) Lymphocytes % (Manual) Seg Neutrophils # Lymphocytes # (Manual) PT INR POC ABG pH POC ABG pCO2 POC ABG pO2 Sodium Potassium Chloride Carbon Dioxide BUN Creatinine Glucose POC Glucose 174 H 56 L 112 H Calcium C-Reactive Protein Total Protein Albumin TSH Urine pH Urine WBC (Auto) Vancomycin Trough 11/06/18 11/06/18 11/06/18 04:33 05:06 07:24 RBC 2.83 L Hgb 9.3 L Hct 27.9 L MCV 99 H MCH 33 H RDW 15.9 H Plt Count 133 L Lymph % (Auto) [place] % (Auto) Lymph # Seg Neutrophils % Seg Neuts % (Manual) 94.0 H Lymphocytes % (Manual) 4.0 L Seg Neutrophils # Lymphocytes # (Manual) 0.3 L PT INR POC ABG pH POC ABG pCO2 32.4 L POC ABG pO2 73 L Sodium Potassium Chloride Carbon Dioxide BUN Creatinine Glucose POC Glucose 139 H Calcium C-Reactive Protein Total Protein Albumin TSH Urine pH Urine WBC (Auto) Vancomycin Trough 11/06/18 11/06/18 11/06/18 07:24 11:52 17:16 RBC Hgb Hct MCV MCH RDW Plt Count Lymph % (Auto) [place] % (Auto) Lymph # Seg Neutrophils % Seg Neuts % (Manual) Lymphocytes % (Manual) Seg Neutrophils # Lymphocytes # (Manual) PT INR POC ABG pH POC ABG pCO2 POC ABG pO2 Sodium 136 L Potassium 3.2 L Chloride Carbon Dioxide BUN 59 H Creatinine 2.3 H Glucose 137 H POC Glucose 212 H 194 H Calcium 7.4 L C-Reactive Protein Total Protein Albumin TSH Urine pH Urine WBC (Auto) Vancomycin Trough 11/07/18 11/07/18 11/07/18 00:44 05:56 06:12 RBC 2.64 L Hgb 8.7 L Hct 26.3 L MCV 100 H MCH 33 H RDW 15.7 H Plt Count Lymph % (Auto) 4.6 L [place] % (Auto) Lymph # 0.4 L Seg Neutrophils % 89.4 H Seg Neuts % (Manual) Lymphocytes % (Manual) Seg Neutrophils # 8.3 H Lymphocytes # (Manual) PT INR POC ABG pH POC ABG pCO2 POC ABG pO2 Sodium Potassium Chloride Carbon Dioxide BUN Creatinine Glucose POC Glucose 193 H 145 H Calcium C-Reactive Protein Total Protein Albumin TSH Urine pH Urine WBC (Auto) Vancomycin Trough 11/07/18 11/07/18 11/07/18 06:12 12:20 17:27 RBC Hgb Hct MCV MCH RDW Plt Count Lymph % (Auto) [place] % (Auto) Lymph # Seg Neutrophils % Seg Neuts % (Manual) Lymphocytes % (Manual) Seg Neutrophils # Lymphocytes # (Manual) PT INR POC ABG pH POC ABG pCO2 POC ABG pO2 Sodium Potassium Chloride Carbon Dioxide BUN 74 H Creatinine 2.8 H Glucose 143 H POC Glucose 207 H 170 H Calcium 7.7 L C-Reactive Protein Total Protein Albumin TSH Urine pH Urine WBC (Auto) Vancomycin Trough 11/07/18 11/08/18 11/08/18 23:40 06:04 07:09 RBC Hgb Hct MCV MCH RDW Plt Count Lymph % (Auto) [place] % (Auto) Lymph # Seg Neutrophils % Seg Neuts % (Manual) Lymphocytes % (Manual) Seg Neutrophils # Lymphocytes # (Manual) PT 15.8 H INR 1.18 H POC ABG pH POC ABG pCO2 POC ABG pO2 Sodium Potassium Chloride Carbon Dioxide BUN Creatinine Glucose POC Glucose 188 H 170 H Calcium C-Reactive Protein Total Protein Albumin TSH Urine pH Urine WBC (Auto) Vancomycin Trough Chest x-ray: image reviewed
--- NOTE | 2018-11-08 10:52 | Progress Note ---
Assessment and Plan Cultures: 10/29/2018 Blood culture: No growth 10/30/2018 sputum culture: MRSA 10/30/2018 urine culture: Mixed growth 11/02/2018 blood culture: no growth A/P: 73-year-old male with prostate cancer, ESRD on hemodialysis, diabetes mellitus, peripheral vascular disease status post right-sided AKA is admitted to the hospital as a transfer from the group home due to altered mental status. Apparently, the patient had been refusing dialysis for a week prior to admission. Now with: 1) Severe sepsis with shock s/p PEA arrest: remains on pressors, mechanical ventilation. 2) Right-sided pneumonia with acute hypoxic respiratory failure: On mechanical ventilation. Chest x-ray showing right-sided infiltrate. Sputum culture growing MRSA. 3) Possible UTI: Patient with indwelling suprapubic catheter. Also with ESRD on hemodialysis. This makes UA difficult to interpret for infection since quite likely to have urinary sediment. 4) ESRD on hemodialysis: Noncompliant. Renally dose abx. 5) Peripheral vascular disease: Status post right BKA, left TMA. 6) Right gluteal decubitus ulcer with eschar: continue wound care. 7) R sphenoid sinusitis noted on CT: already on abx. Recs: continue renally vancomycin, target pre-dialysis level 10-20 mcg/ml (today is Day 9 of 10) fevers could be from seizure activity Overall extremely poor prognosis, strongly recommend comfort care Aaron Regan MD [facility], [place], [facility] C: [phone] O: [phone] F: [phone] Subjective Date of service: 11/08/18 Principal diagnosis: sepsis, acute resp, failure. Interval history: Fever +. Remains on pressors. Unresponsive. On the ventilator. Objective - Exam Narrative Exam: Physical Exam: Constitutional: unresponsive, intubated Head, Ears, Nose: Normocephalic, atraumatic. External ears, nose normal Eyes: Conjunctivae/corneas clear. No icterus. No ptosis. Neck: Supple, no meningeal signs Oral: intubated Cardiovascular: S1, S2 normal. Respiratory: Good air entry, clear to auscultation bilaterally GI: Soft, bowel sounds hypo. Suprapubic cath + Musculoskeletal: Right AKA, left TMA stumps healed. Right gluteal region with eschar. Left femoral HD cath + Skin: No rash or abscess Hem/Lymphatic: No palpable cervical or supraclavicular nodes. No lymphangitis Psych: no agitation Neurological: unresponsive, intubated, on vent. - Constitutional Vitals: Vital Signs Temp Pulse Resp BP Pulse Ox 101.9 F H 115 H 30 H 100/51 98 11/08/18 08:00 11/08/18 09:30 11/08/18 09:30 11/08/18 09:30 11/08/18 09:30 Temperature -Last 24 Hours Temperature 101.9 F Temperature 99.3 F Temperature 98.9 F Temperature 99.0 F Temperature 99.0 F Temperature 99.8 F Temperature 98.8 F Temperature 98.0 F - Labs CBC & Chem 7: 11/07/18 06:12 11/07/18 06:12 Labs: Abnormal lab results 11/07/18 11/07/18 11/07/18 Range/Units 12:20 17:27 23:40 PT (12.2-14.9) Sec. INR (0.87-1.13) POC Glucose 207 H 170 H 188 H (70-105) 11/08/18 11/08/18 Range/Units 06:04 07:09 PT 15.8 H (12.2-14.9) Sec. INR 1.18 H (0.87-1.13) POC Glucose 170 H (70-105)
[2018-11-08] MEDS: TYLENOL FEEDTUBE PRN (10:57)
[2018-11-08] MEDS: KEPPRA PO SCH ×2 (10:57→21:58)
[2018-11-08] MEDS: PEPCID PO SCH (10:57)
[2018-11-08] MEDS: LEVOPHED DRIP 4 MG/NS 250 ML 4 MG/250 ML BAG IV SCH ×2 (11:30→23:34)
--- NOTE | 2018-11-08 11:53 | Progress Note ---
Assessment and Plan 1. ESRD: Patient was last dialyzed yesterday. Patient remain hypotensive on pressors. Monitor for INTERVENTIONAL TECHNOLOGIST needs. 2. FEN: Hyperkalemia, improved. Hypernatremia, improved. UF with HD as tolerated. 3. Respiratory failure: On vent. 4. Septic Shock: On Levophed. 5. Pneumonia. 6. Anemia: Epogen. Subjective Date of service: 11/08/18 Principal diagnosis: sepsis, acute resp, failure. Interval history: Patient was seen and examined at the bedside. Objective - Vital Signs Vital signs: Vital Signs - 12hr 11/08/18 11/08/18 11/08/18 00:00 00:15 00:30 Temperature 98.9 F Pulse Rate 108 H 109 H 108 H Pulse Rate [ 108 H From Monitor] Respiratory 28 H 27 H 26 H Rate Blood Pressure 100/56 97/57 98/56 O2 Sat by Pulse 98 98 98 Oximetry 11/08/18 11/08/18 11/08/18 00:45 01:00 01:15 Temperature Pulse Rate 108 H 108 H 108 H Pulse Rate [ From Monitor] Respiratory 26 H 26 H 28 H Rate Blood Pressure 99/58 91/52 100/56 O2 Sat by Pulse 98 98 98 Oximetry 11/08/18 11/08/18 11/08/18 01:30 01:45 02:00 Temperature Pulse Rate 106 H 107 H 109 H Pulse Rate [ From Monitor] Respiratory 30 H 30 H 31 H Rate Blood Pressure 92/53 95/52 95/52 O2 Sat by Pulse 99 99 99 Oximetry 11/08/18 11/08/18 11/08/18 02:15 02:30 02:45 Temperature Pulse Rate 110 H 110 H 110 H Pulse Rate [ From Monitor] Respiratory 30 H 30 H 31 H Rate Blood Pressure 91/57 100/54 93/54 O2 Sat by Pulse 99 100 100 Oximetry 11/08/18 11/08/18 11/08/18 03:00 03:15 03:30 Temperature Pulse Rate 111 H 112 H 110 H Pulse Rate [ From Monitor] Respiratory 30 H 29 H 32 H Rate Blood Pressure 100/56 101/56 88/54 O2 Sat by Pulse 99 99 99 Oximetry 11/08/18 11/08/18 11/08/18 03:45 03:52 04:00 Temperature 99.3 F Pulse Rate 110 H 110 H Pulse Rate [ 110 H From Monitor] Respiratory 29 H 28 H Rate Blood Pressure 96/56 90/55 O2 Sat by Pulse 98 99 Oximetry 11/08/18 11/08/18 11/08/18 04:15 04:30 04:36 Temperature Pulse Rate 109 H 110 H 110 H Pulse Rate [ From Monitor] Respiratory 22 25 H 27 H Rate Blood Pressure 93/53 93/50 93/50 O2 Sat by Pulse 99 98 98 Oximetry 11/08/18 11/08/18 11/08/18 04:45 05:00 05:15 Temperature Pulse Rate 109 H 110 H 109 H Pulse Rate [ From Monitor] Respiratory 23 29 H 16 Rate Blood Pressure 86/50 92/50 94/48 O2 Sat by Pulse 98 98 100 Oximetry 11/08/18 11/08/18 11/08/18 05:30 05:45 06:00 Temperature Pulse Rate 110 H 109 H 110 H Pulse Rate [ From Monitor] Respiratory 28 H 25 H 25 H Rate Blood Pressure 89/56 101/54 100/55 O2 Sat by Pulse 99 99 98 Oximetry 11/08/18 11/08/18 11/08/18 06:15 06:30 06:45 Temperature Pulse Rate 111 H 110 H 110 H Pulse Rate [ From Monitor] Respiratory 26 H 23 24 Rate Blood Pressure 106/56 112/56 86/44 O2 Sat by Pulse 99 99 97 Oximetry 11/08/18 11/08/18 11/08/18 07:00 07:15 07:30 Temperature Pulse Rate 113 H 112 H 114 H Pulse Rate [ From Monitor] Respiratory 24 26 H 28 H Rate Blood Pressure 103/45 94/49 89/52 O2 Sat by Pulse 98 98 98 Oximetry 11/08/18 11/08/18 11/08/18 07:45 08:00 08:15 Temperature 101.9 F H Pulse Rate 115 H 118 H 118 H Pulse Rate [ 116 H From Monitor] Respiratory 32 H 19 26 H Rate Blood Pressure 98/54 119/69 119/69 O2 Sat by Pulse 99 98 97 Oximetry 11/08/18 11/08/18 11/08/18 08:30 08:45 09:00 Temperature Pulse Rate 116 H 116 H 115 H Pulse Rate [ From Monitor] Respiratory 30 H 29 H 33 H Rate Blood Pressure 105/49 96/53 102/50 O2 Sat by Pulse 98 98 98 Oximetry 11/08/18 11/08/18 11/08/18 09:15 09:30 09:45 Temperature Pulse Rate 115 H 115 H 115 H Pulse Rate [ From Monitor] Respiratory 27 H 30 H 26 H Rate Blood Pressure 97/49 100/51 108/49 O2 Sat by Pulse 98 98 98 Oximetry 11/08/18 11/08/18 11/08/18 10:00 10:15 10:30 Temperature Pulse Rate 115 H 114 H 114 H Pulse Rate [ From Monitor] Respiratory 24 34 H 35 H Rate Blood Pressure 97/53 108/54 108/54 O2 Sat by Pulse 99 99 100 Oximetry 11/08/18 11/08/18 11/08/18 10:45 11:00 11:15 Temperature Pulse Rate 115 H 115 H 118 H Pulse Rate [ From Monitor] Respiratory 35 H 35 H 43 H Rate Blood Pressure 115/60 110/56 133/64 O2 Sat by Pulse 100 99 100 Oximetry 11/08/18 11:31 Temperature Pulse Rate 121 H Pulse Rate [ From Monitor] Respiratory 36 H Rate Blood Pressure 87/46 O2 Sat by Pulse 99 Oximetry - General Appearance General appearance: well-developed, appears stated age, cachectic, intubated, other (on vent, NG tube noted) EENT: ATNC Respiratory: Present: Clear to Ascultation Cardiology: tachycardia, S1S2, no murmurs Gastrointestinal: normoactive bowel sounds, no tenderness, no distended, other (suprapubic catheter noted) Neurologic: obtunded Musculoskeletal: other (left TMA and right AKA, extremity edema noted, left groin dialysis catheter noted) - Lab 11/07/18 06:12 11/07/18 06:12 Most recent lab results Calcium 7.7 mg/dL (8.4-10.2) L 11/07/18 06:12 Phosphorus 3.10 mg/dL (2.5-4.5) 11/05/18 06:36 Medications & Allergies - Medications Allergies/Adverse Reactions: Allergies No Known Allergies Allergy (Verified 01/18/18 20:10) Home Medications: Home Medications Medication Instructions Recorded Confirmed Last Taken Type Acetaminophen [Acetaminophen TAB] 650 mg PO Q4H PRN 03/12/18 10/31/18 Unknown History Calcium Acetate [Phoslo] 667 mg PO TID 03/12/18 10/31/18 05/13/18 17:00 History Carvedilol [Coreg] 6.25 mg PO BID 03/12/18 10/31/18 05/13/18 09:00 History Ergocalciferol 50,000 unit PO QWEEK 03/12/18 10/31/18 05/11/18 09:00 History Apixaban [Eliquis] 2.5 mg PO BID tablet 08/21/18 10/31/18 Unknown Rx Megestrol [Megace] 400 mg PO QDAY 10/31/18 10/31/18 Unknown History Mirtazapine [Remeron] 15 mg PO QHS 10/31/18 10/31/18 Unknown History Elaine-José Rx Tablet 1 tab PO QDAY 10/31/18 10/31/18 Unknown History Sodium Bicarbonate 650 mg PO BID 10/31/18 10/31/18 Unknown History traMADol [Ultram 50 MG tab] 25 mg PO Q12H PRN 10/31/18 10/31/18 Unknown History Active Medications: Generic Name Dose Route Start Last Admin Trade Name Freq PRN Reason Stop Dose Admin Acetaminophen 650 mg 11/02/18 09:25 11/08/18 10:57 Tylenol FEEDTUBE 650 mg Q6H PRN Administration Fever >101 Lipase/Protease/Amylase 1 each 11/01/18 10:[address] 10,500 Unit FEEDTUBE PRN PRN For Clogged Feeding Tube Epoetin Cliff 20,000 unit 11/05/18 10:21 11/07/18 21:35 Procrit SUB-Q 20,000 unit ALEJO PRN Administration hemodialysis Famotidine 20 mg 11/01/18 10:00 11/08/18 10:57 Pepcid PO 20 mg DAILY KIRSTEN Administration Heparin Sodium (Porcine) 5,000 unit 10/29/18 22:00 11/08/18 06:22 Heparin SUB-Q 5,000 unit Q8HR KIRSTEN Administration Norepinephrine 4 mg in 250 mls @ 7.5 mls/hr 10/30/18 01:00 11/08/18 11:30 Levophed Drip 4 Mg/Ns 250 Ml IV 2 mcg/min TITR KIRSTEN 7.5 mls/hr Administration Protocol 2 MCG/MIN Sodium Chloride 100 mls @ 999 mls/hr 11/07/18 07:09 Nacl 0.9% IV ALEJO PRN Hypotension Vancomycin HCl 500 mg/ Sodium 110 mls @ 66.667 mls/hr 11/07/18 20:00 11/07/18 22:07 Chloride IV 11/09/18 23:59 66.667 mls/hr MoWeFr KIRSTEN Administration Insulin Human Lispro 0 unit 10/30/18 10:00 11/08/18 11:34 Humalog SUB-Q 3 unit Q6HR KIRSTEN Administration Protocol Levetiracetam 500 mg 11/07/18 10:00 11/08/18 10:57 Keppra PO 500 mg BID KIRSTEN Administration Simple Syrup 15 ml 11/01/18 10:04 11/06/18 00:09 Simple Syrup FEEDTUBE 15 ml PRN PRN Administration Hypoglycemia Simple Syrup 30 ml 11/01/18 10:04 Simple Syrup FEEDTUBE PRN PRN Hypoglycemia Sodium Bicarbonate 325 mg 11/01/18 10:04 Sodium Bicarbonate FEEDTUBE PRN PRN For Clogged Feeding Tube
--- NOTE | 2018-11-08 12:32 | Consultation ---
Past History Past Medical History: cancer, diabetes, DVT Past Surgical History: Other (LE amputation.) Social history: no significant social history Family history: no significant family history Medications and Allergies Allergies Allergy/AdvReac Type Severity Reaction Status Date / Time No Known Allergies Allergy Verified 01/18/18 20:10 Home Medications Medication Instructions Recorded Confirmed Last Taken Type Acetaminophen [Acetaminophen TAB] 650 mg PO Q4H PRN 03/12/18 10/31/18 Unknown History Calcium Acetate [Phoslo] 667 mg PO TID 03/12/18 10/31/18 05/13/18 17:00 History Carvedilol [Coreg] 6.25 mg PO BID 03/12/18 10/31/18 05/13/18 09:00 History Ergocalciferol 50,000 unit PO QWEEK 03/12/18 10/31/18 05/11/18 09:00 History Apixaban [Eliquis] 2.5 mg PO BID tablet 08/21/18 10/31/18 Unknown Rx Megestrol [Megace] 400 mg PO QDAY 10/31/18 10/31/18 Unknown History Mirtazapine [Remeron] 15 mg PO QHS 10/31/18 10/31/18 Unknown History Elaine-José Rx Tablet 1 tab PO QDAY 10/31/18 10/31/18 Unknown History Sodium Bicarbonate 650 mg PO BID 10/31/18 10/31/18 Unknown History traMADol [Ultram 50 MG tab] 25 mg PO Q12H PRN 10/31/18 10/31/18 Unknown History Active Meds: Active Medications Acetaminophen (Tylenol) 650 mg FEEDTUBE Q6H PRN PRN Reason: Fever >101 Last Admin: 11/08/18 10:57 Dose: 650 mg Documented by: Lipase/Protease/Amylase (Pancreyobani Palomo 10,500 Unit) 1 each FEEDTUBE PRN PRN PRN Reason: For Clogged Feeding Tube Epoetin Cliff (Procrit) 20,000 unit SUB-Q ALEJO PRN PRN Reason: hemodialysis Last Admin: 11/07/18 21:35 Dose: 20,000 unit Documented by: Famotidine (Pepcid) 20 mg PO DAILY KIRSTEN Last Admin: 11/08/18 10:57 Dose: 20 mg Documented by: Heparin Sodium (Porcine) (Heparin) 5,000 unit SUB-Q Q8HR [facility] Last Admin: 11/08/18 06:22 Dose: 5,000 unit Documented by: Norepinephrine (Levophed Drip 4 Mg/Ns 250 Ml) 4 mg in 250 mls @ 7.5 mls/hr IV TITR KIRSTEN; Protocol Last Admin: 11/08/18 11:30 Dose: 2 mcg/min, 7.5 mls/hr Documented by: Sodium Chloride (Nacl 0.9%) 100 mls @ 999 mls/hr IV ALEJO PRN PRN Reason: Hypotension Vancomycin HCl 500 mg/ Sodium (Chloride) 110 mls @ 66.667 mls/hr IV MoWeFr [facility] Stop: 11/09/18 23:59 Last Admin: 11/07/18 22:07 Dose: 66.667 mls/hr Documented by: Insulin Human Lispro (Humalog) 0 unit SUB-Q Q6HR [facility]; Protocol Last Admin: 11/08/18 11:34 Dose: 3 unit Documented by: Levetiracetam (Keppra) 500 mg PO BID [facility] Last Admin: 11/08/18 10:57 Dose: 500 mg Documented by: Simple Syrup (Simple Syrup) 15 ml FEEDTUBE PRN PRN PRN Reason: Hypoglycemia Last Admin: 11/06/18 00:09 Dose: 15 ml Documented by: Simple Syrup (Simple Syrup) 30 ml FEEDTUBE PRN PRN PRN Reason: Hypoglycemia Sodium Bicarbonate (Sodium Bicarbonate) 325 mg FEEDTUBE PRN PRN PRN Reason: For Clogged Feeding Tube Exam Vital Signs Pulse Resp BP Pulse Ox 87 20 124/76 100 10/29/18 16:25 10/29/18 16:25 10/29/18 16:25 10/29/18 16:25 Results - Labs 11/07/18 06:12 11/07/18 06:12 Abnormal lab results 11/07/18 11/07/18 11/07/18 Range/Units 12:20 17:27 23:40 PT (12.2-14.9) Sec. INR (0.87-1.13) POC Glucose 207 H 170 H 188 H (70-105) 11/08/18 11/08/18 11/08/18 Range/Units 06:04 07:09 11:21 PT 15.8 H (12.2-14.9) Sec. INR 1.18 H (0.87-1.13) POC Glucose 170 H 191 H (70-105)
--- NOTE | 2018-11-08 16:51 | Event Note ---
Date: 11/08/18 Pt has been seen and evaluated. Will hold off on placing formal consult until family meeting is completed and plan of care has been determined.
--- NOTE | 2018-11-08 19:00 | Progress Note ---
Assessment and Plan - Patient Problems (1) Altered mental status Current Visit: Yes Status: Acute Qualifiers: Altered mental status type: unspecified Qualified Code(s): R41.82 - Altered mental status, unspecified Plan to address problem: most likely due to sinus infection follow ID. (2) Hyperkalemia Current Visit: Yes Status: Acute Plan to address problem: Treated, and continue to correct with HD. corrected. (3) Hypernatremia Current Visit: Yes Status: Acute Plan to address problem: correct with HD. As above when feasible with the Renal service. patient continues with HD. (4) Uremia Current Visit: Yes Status: Acute Plan to address problem: treat underlying cause. Follow Renal. (5) Acute encephalopathy Current Visit: Yes Status: Chronic Plan to address problem: supportive care. (6) ESRD needing dialysis Current Visit: Yes Status: Chronic Plan to address problem: Continue on HD. as above once feasible. (7) Sepsis Current Visit: Yes Status: Acute Plan to address problem: treat the etiology.Most likely due to sinus infection. Subjective Date of service: 11/08/18 Principal diagnosis: sepsis, acute resp, failure. Interval history: Patient seen/examined,in the ICU. I have spoken to the daughter, and his sister today, regarding plan of care, and prognosis. I have rec less aggressive path, including hospice. They will think about it ,and let me know. Mean while, will continue current management. His prognosis is quite poor at this time. Patient seen/examined, resting in bed, labs reviewed.Still on the vent.If unable to be weaned off the vent, on timely /expected time, will push for LTAC eval[facility]placement [facility] to start preparing for this possibility. Patient seen/examined, resting in bed, still not wean able yet.He had HD today. patient seen/examined, resting in bed. labs/records/notes reviewed, including ID consult notes. Cxr with PNA., 24hr Tm 102. Patient seen/examined, resting in bed, NR, BP low, and Levo increased back up ,to maintain any appreciable reading. Labs reviewed. I have discussed/updated the daughter Ramón today, discussed code status again, and prognosis,as well as long time plan/disposition.She has signed a Do NOT Resuscitate, and the other family member suppose to sign hers today, or tomorrow. I have recommended, and she is in agreement to the LTAC placement at [facility], where he can also get trached, if, and when feasible. I want the case therapist to act on this on timely manner.MRSA positive in the sputum.ID on the case. Patient seen/examined, resting in bed, labs reviewed. Patient is now an AND status.Plan for LTAC referral by the case therapist, I have spoken to the family about [facility], and she was in agreement. patient seen/examined, resting in bed, records reviewed, case d/w Dr Garcia.I had already spoken to the primary daughter about LTAC this past week, and she was in agreement. I do not think patient has to be trached/peg here before d/c, and transfer to the LTAC, both the patient, and family will have ample time to think tis over ,if /when it comes to that.I will however continue to speak to them. PLs read notes, so we can all be on the same plan for disposition. patient seen/examined, resting in bed. labs/records reviewed, family meeting held with the 3 Daughters by me. Spent time discussing prognosis, trach/peg. they have agreed to these procedures, even if there could be serious complication. I will consult ENT- Dr West,while waiting on EEG results.Once completed, will transfer to the LTAC as agreed to by the family.I have ensured them , that the prognosis is poor, no matter what is done hence forth. patient seen/examined, resting in bed, discussed EEG results with pulm, and with the Nurse. This an abn EEG, and the family had indicated the wish to proceed with treach/peg.Will consult Gen surgery. Patient seen/examined, resting in bed, not readily responsive. Gen surgery awaiting family meeting between himself, and the family, before proceeding with any surgery. I have had all the meeting needed with the family , and every thing is documented on the notes.Dr Phipps will cover my rounds from monday till monday. I am avalable on the phone [phone]. Objective - Constitutional Vitals: Vital Signs - 12hr 11/08/18 11/08/18 11/08/18 07:00 07:15 07:30 Temperature Pulse Rate 113 H 112 H 114 H Pulse Rate [ From Monitor] Respiratory 24 26 H 28 H Rate Blood Pressure 103/45 94/49 89/52 O2 Sat by Pulse 98 98 98 Oximetry 11/08/18 11/08/18 11/08/18 07:45 08:00 08:15 Temperature 101.9 F H Pulse Rate 115 H 118 H 118 H Pulse Rate [ 116 H From Monitor] Respiratory 32 H 19 26 H Rate Blood Pressure 98/54 119/69 119/69 O2 Sat by Pulse 99 98 97 Oximetry 11/08/18 11/08/18 11/08/18 08:30 08:45 09:00 Temperature Pulse Rate 116 H 116 H 115 H Pulse Rate [ From Monitor] Respiratory 30 H 29 H 33 H Rate Blood Pressure 105/49 96/53 102/50 O2 Sat by Pulse 98 98 98 Oximetry 11/08/18 11/08/18 11/08/18 09:15 09:30 09:45 Temperature Pulse Rate 115 H 115 H 115 H Pulse Rate [ From Monitor] Respiratory 27 H 30 H 26 H Rate Blood Pressure 97/49 100/51 108/49 O2 Sat by Pulse 98 98 98 Oximetry 11/08/18 11/08/18 11/08/18 10:00 10:15 10:30 Temperature Pulse Rate 115 H 114 H 114 H Pulse Rate [ From Monitor] Respiratory 24 34 H 35 H Rate Blood Pressure 97/53 108/54 108/54 O2 Sat by Pulse 99 99 100 Oximetry 11/08/18 11/08/18 11/08/18 10:45 11:00 11:15 Temperature Pulse Rate 115 H 115 H 118 H Pulse Rate [ From Monitor] Respiratory 35 H 35 H 43 H Rate Blood Pressure 115/60 110/56 133/64 O2 Sat by Pulse 100 99 100 Oximetry 11/08/18 11/08/18 11/08/18 11:31 11:45 11:54 Temperature Pulse Rate 121 H 118 H 117 H Pulse Rate [ From Monitor] Respiratory 36 H 33 H 35 H Rate Blood Pressure 87/46 74/53 74/53 O2 Sat by Pulse 99 99 100 Oximetry 11/08/18 11/08/18 11/08/18 12:00 12:15 12:30 Temperature 100.4 F H Pulse Rate 118 H 118 H 120 H Pulse Rate [ 116 H From Monitor] Respiratory 31 H 35 H 34 H Rate Blood Pressure 95/50 96/47 102/50 O2 Sat by Pulse 100 100 100 Oximetry 11/08/18 11/08/18 11/08/18 12:45 13:00 13:15 Temperature Pulse Rate 120 H 119 H 121 H Pulse Rate [ From Monitor] Respiratory 35 H 31 H 35 H Rate Blood Pressure 106/51 99/49 99/48 O2 Sat by Pulse 100 99 99 Oximetry 11/08/18 11/08/18 11/08/18 13:30 13:45 14:00 Temperature Pulse Rate 120 H 123 H 117 H Pulse Rate [ From Monitor] Respiratory 33 H 36 H 35 H Rate Blood Pressure 106/48 115/61 108/57 O2 Sat by Pulse 99 94 99 Oximetry 11/08/18 11/08/18 11/08/18 14:15 14:30 14:45 Temperature Pulse Rate 115 H 114 H 112 H Pulse Rate [ From Monitor] Respiratory 35 H 31 H 32 H Rate Blood Pressure 115/64 96/52 101/54 O2 Sat by Pulse 99 99 100 Oximetry 11/08/18 11/08/18 11/08/18 15:00 15:15 15:30 Temperature Pulse Rate 112 H 111 H 107 H Pulse Rate [ From Monitor] Respiratory 32 H 33 H 32 H Rate Blood Pressure 102/55 101/58 104/54 O2 Sat by Pulse 100 100 100 Oximetry 11/08/18 11/08/18 11/08/18 15:33 15:45 16:00 Temperature 101.1 F H Pulse Rate 109 H 110 H 108 H Pulse Rate [ 108 H From Monitor] Respiratory 35 H 25 H 25 H Rate Blood Pressure 104/54 111/60 90/49 O2 Sat by Pulse 100 100 100 Oximetry 11/08/18 11/08/18 11/08/18 16:15 16:30 16:45 Temperature Pulse Rate 107 H 107 H 106 H Pulse Rate [ From Monitor] Respiratory 22 24 22 Rate Blood Pressure 91/48 90/57 96/53 O2 Sat by Pulse 99 100 100 Oximetry 11/08/18 11/08/18 11/08/18 17:00 17:15 17:30 Temperature Pulse Rate 106 H 106 H 107 H Pulse Rate [ From Monitor] Respiratory 22 20 26 H Rate Blood Pressure 103/57 95/57 111/59 O2 Sat by Pulse 100 100 100 Oximetry 11/08/18 11/08/18 17:45 18:00 Temperature Pulse Rate 106 H 105 H Pulse Rate [ From Monitor] Respiratory 25 H 26 H Rate Blood Pressure 96/56 92/56 O2 Sat by Pulse 100 100 Oximetry General appearance: Present: no acute distress, cachectic - EENT Eyes: PERRL, EOM intact ENT: hearing intact, clear oral mucosa Ears: bilateral: normal - Neck Neck: supple, normal ROM - Respiratory Respiratory effort: normal Respiratory: bilateral: other (on the vent.) - Breasts Breasts: normal - Cardiovascular Rhythm: regular Heart Sounds: Present: S1 & S2. Absent: gallop, rub Extremities: pulses intact, No edema, normal color, Full ROM - Gastrointestinal General gastrointestinal: Present: soft, non-tender, non-distended, normal bowel sounds Rectal Exam: deferred - Genitourinary Male genitourinary: deferred - Integumentary Integumentary: clear, warm, dry - Labs CBC & Chem 7: 11/07/18 06:12 11/07/18 06:12 Labs: Abnormal lab results 11/07/18 11/07/18 11/08/18 Range/Units 17:27 23:40 06:04 PT (12.2-14.9) Sec. INR (0.87-1.13) POC Glucose 170 H 188 H 170 H (70-105) 11/08/18 11/08/18 11/08/18 Range/Units 07:09 11:21 18:29 PT 15.8 H (12.2-14.9) Sec. INR 1.18 H (0.87-1.13) POC Glucose 191 H 224 H (70-105) Medications & Allergies - Medications Allergies/Adverse Reactions: Allergies No Known Allergies Allergy (Verified 01/18/18 20:10) Home Medications: Home Medications Medication Instructions Recorded Confirmed Last Taken Type Acetaminophen [Acetaminophen TAB] 650 mg PO Q4H PRN 03/12/18 10/31/18 Unknown History Calcium Acetate [Phoslo] 667 mg PO TID 03/12/18 10/31/18 05/13/18 17:00 History Carvedilol [Coreg] 6.25 mg PO BID 03/12/18 10/31/18 05/13/18 09:00 History Ergocalciferol 50,000 unit PO QWEEK 03/12/18 10/31/18 05/11/18 09:00 History Apixaban [Eliquis] 2.5 mg PO BID tablet 08/21/18 10/31/18 Unknown Rx Megestrol [Megace] 400 mg PO QDAY 10/31/18 10/31/18 Unknown History Mirtazapine [Remeron] 15 mg PO QHS 10/31/18 10/31/18 Unknown History Elaine-José Rx Tablet 1 tab PO QDAY 10/31/18 10/31/18 Unknown History Sodium Bicarbonate 650 mg PO BID 10/31/18 10/31/18 Unknown History traMADol [Ultram 50 MG tab] 25 mg PO Q12H PRN 10/31/18 10/31/18 Unknown History Active Medications: Generic Name Dose Route Start Last Admin Trade Name Freq PRN Reason Stop Dose Admin Acetaminophen 650 mg 11/02/18 09:25 11/08/18 10:57 Tylenol FEEDTUBE 650 mg Q6H PRN Administration Fever >101 Lipase/Protease/Amylase 1 each 11/01/18 10:[address] 10,500 Unit FEEDTUBE PRN PRN For Clogged Feeding Tube Epoetin Cliff 20,000 unit 11/05/18 10:21 11/07/18 21:35 Procrit SUB-Q 20,000 unit ALEJO PRN Administration hemodialysis Famotidine 20 mg 11/01/18 10:00 11/08/18 10:57 Pepcid PO 20 mg DAILY KIRSTEN Administration Heparin Sodium (Porcine) 5,000 unit 10/29/18 22:00 11/08/18 13:52 Heparin SUB-Q 5,000 unit Q8HR KIRSTEN Administration Norepinephrine 4 mg in 250 mls @ 7.5 mls/hr 10/30/18 01:00 11/08/18 11:30 Levophed Drip 4 Mg/Ns 250 Ml IV 2 mcg/min TITR KIRSTEN 7.5 mls/hr Administration Protocol 2 MCG/MIN Sodium Chloride 100 mls @ 999 mls/hr 11/07/18 07:09 Nacl 0.9% IV ALEJO PRN Hypotension Vancomycin HCl 500 mg/ Sodium 110 mls @ 66.667 mls/hr 11/07/18 20:00 11/07/18 22:07 Chloride IV 11/09/18 23:59 66.667 mls/hr MoWeFr KIRSTEN Administration Insulin Human Lispro 0 unit 10/30/18 10:00 11/08/18 18:31 Humalog SUB-Q 4 unit Q6HR KIRSTEN Administration Protocol Levetiracetam 500 mg 11/07/18 10:00 11/08/18 10:57 Keppra PO 500 mg BID KIRSTEN Administration Simple Syrup 15 ml 11/01/18 10:04 11/06/18 00:09 Simple Syrup FEEDTUBE 15 ml PRN PRN Administration Hypoglycemia Simple Syrup 30 ml 11/01/18 10:04 Simple Syrup FEEDTUBE PRN PRN Hypoglycemia Sodium Bicarbonate 325 mg 11/01/18 10:04 Sodium Bicarbonate FEEDTUBE PRN PRN For Clogged Feeding Tube
[2018-11-09] MEDS: HumaLOG SUB-Q SCH ×4 (00:01→17:58)
[2018-11-09] MEDS: HEPARIN SUB-Q SCH ×3 (05:58→23:44)
--- NOTE | 2018-11-09 07:14 | Progress Note ---
Assessment and Plan 1. ESRD: Patient was last dialyzed 2 days ago. Patient remain hypotensive on pressors. Monitor for [employer] needs. Hemodialysis today. 2. FEN: Hyperkalemia, improved. Hypernatremia, improved. UF with HD as tolerated. 3. Respiratory failure: On vent. 4. Septic Shock: On Levophed. Persistent fever, hemodialysis catheter can be taken out after dialysis today for line holiday. 5. Pneumonia. 6. Anemia: Epogen. Subjective Date of service: 11/09/18 Principal diagnosis: sepsis, acute resp, failure. Interval history: Patient was seen and examined at the bedside. Objective - Vital Signs Vital signs: Vital Signs - 12hr 11/08/18 11/08/18 11/08/18 19:15 19:30 19:45 Temperature Pulse Rate 108 H 110 H 109 H Respiratory 29 H 28 H 29 H Rate Blood Pressure 91/47 85/49 89/51 O2 Sat by Pulse 98 98 99 Oximetry 11/08/18 11/08/18 11/08/18 19:47 20:00 20:15 Temperature Pulse Rate 109 H 109 H 110 H Respiratory 31 H 33 H Rate Blood Pressure 89/51 96/54 93/55 O2 Sat by Pulse 99 100 100 Oximetry 11/08/18 11/08/18 11/08/18 20:30 20:45 21:00 Temperature Pulse Rate 110 H 109 H 109 H Respiratory 28 H 29 H 27 H Rate Blood Pressure 95/54 97/52 92/50 O2 Sat by Pulse 99 100 100 Oximetry 11/08/18 11/08/18 11/08/18 21:15 21:30 21:45 Temperature Pulse Rate 108 H 107 H 108 H Respiratory 35 H 29 H 32 H Rate Blood Pressure 94/50 103/55 103/59 O2 Sat by Pulse 99 100 100 Oximetry 11/08/18 11/08/18 11/08/18 22:00 22:10 22:15 Temperature Pulse Rate 108 H 108 H 108 H Respiratory 30 H 32 H 26 H Rate Blood Pressure 108/59 108/59 103/57 O2 Sat by Pulse 100 100 100 Oximetry 11/08/18 11/08/18 11/08/18 22:18 22:30 22:33 Temperature Pulse Rate 108 H 108 H 107 H Respiratory 29 H 29 H 25 H Rate Blood Pressure 103/57 109/58 109/58 O2 Sat by Pulse 100 100 100 Oximetry 04/11/19 04/11/19 04/11/19 22:45 23:00 23:15 Temperature Pulse Rate 108 H 108 H 109 H Respiratory 29 H 31 H 26 H Rate Blood Pressure 103/57 101/57 97/56 O2 Sat by Pulse 100 100 100 Oximetry 11/08/18 11/08/18 11/08/18 23:30 23:41 23:45 Temperature Pulse Rate 109 H 109 H 109 H Respiratory 28 H 25 H Rate Blood Pressure 104/55 103/57 108/56 O2 Sat by Pulse 100 100 100 Oximetry 11/09/18 11/09/18 11/09/18 00:00 00:15 00:30 Temperature 99.4 F Pulse Rate 108 H 108 H 108 H Respiratory 28 H 29 H 35 H Rate Blood Pressure 96/52 105/55 99/53 O2 Sat by Pulse 100 100 100 Oximetry 11/09/18 11/09/18 11/09/18 00:45 01:00 01:15 Temperature Pulse Rate 108 H 111 H 112 H Respiratory 13 30 H 33 H Rate Blood Pressure 113/52 95/55 106/56 O2 Sat by Pulse 100 99 100 Oximetry 11/09/18 11/09/18 11/09/18 01:30 01:45 02:00 Temperature Pulse Rate 112 H 114 H 112 H Respiratory 30 H 36 H 33 H Rate Blood Pressure 94/50 112/58 98/51 O2 Sat by Pulse 100 100 100 Oximetry 11/09/18 11/09/18 11/09/18 02:15 02:30 02:45 Temperature Pulse Rate 114 H 113 H 113 H Respiratory 35 H 28 H 27 H Rate Blood Pressure 100/53 101/50 93/48 O2 Sat by Pulse 100 100 99 Oximetry 11/09/18 11/09/18 11/09/18 03:00 03:15 03:30 Temperature Pulse Rate 113 H 114 H 114 H Respiratory 26 H 31 H 31 H Rate Blood Pressure 93/48 94/53 94/52 O2 Sat by Pulse 99 100 100 Oximetry 11/09/18 11/09/18 11/09/18 03:45 03:47 04:00 Temperature 99.9 F H Pulse Rate 114 H 114 H Respiratory 31 H 29 H Rate Blood Pressure 93/50 92/53 O2 Sat by Pulse 100 99 Oximetry 11/09/18 11/09/18 11/09/18 04:15 04:17 04:30 Temperature Pulse Rate 114 H 114 H 115 H Respiratory 24 25 H Rate Blood Pressure 93/52 92/53 95/53 O2 Sat by Pulse 99 99 99 Oximetry 11/09/18 11/09/18 11/09/18 04:45 05:00 05:15 Temperature Pulse Rate 117 H 118 H 115 H Respiratory 33 H 32 H 28 H Rate Blood Pressure 103/58 97/57 96/52 O2 Sat by Pulse 98 98 98 Oximetry 11/09/18 11/09/18 11/09/18 05:30 05:45 06:00 Temperature Pulse Rate 116 H 116 H 117 H Respiratory 29 H 19 21 Rate Blood Pressure 105/55 85/52 97/51 O2 Sat by Pulse 99 99 99 Oximetry 11/09/18 06:15 Temperature Pulse Rate 116 H Respiratory 25 H Rate Blood Pressure 94/55 O2 Sat by Pulse 99 Oximetry - General Appearance General appearance: well-developed, appears stated age, cachectic, intubated, other (on vent) EENT: ATNC Neck: supple Respiratory: Present: Clear to Ascultation Cardiology: regular, tachycardia, S1S2, no murmurs Gastrointestinal: normoactive bowel sounds, no tenderness, no distended, other (suprapubic catheter) Neurologic: obtunded Musculoskeletal: other (left TMA, R AKA, left groin hemodialysis catheter, extremity edema noted) - Lab 11/09/18 07:35 11/09/18 07:35 Most recent lab results Calcium 7.7 mg/dL (8.4-10.2) L 11/07/18 06:12 Phosphorus 3.10 mg/dL (2.5-4.5) 11/05/18 06:36 Medications & Allergies - Medications Allergies/Adverse Reactions: Allergies No Known Allergies Allergy (Verified 01/18/18 20:10) Home Medications: Home Medications Medication Instructions Recorded Confirmed Last Taken Type Acetaminophen [Acetaminophen TAB] 650 mg PO Q4H PRN 03/12/18 10/31/18 Unknown History Calcium Acetate [Phoslo] 667 mg PO TID 03/12/18 10/31/18 05/13/18 17:00 History Carvedilol [Coreg] 6.25 mg PO BID 03/12/18 10/31/18 05/13/18 09:00 History Ergocalciferol 50,000 unit PO QWEEK 03/12/18 10/31/18 05/11/18 09:00 History Apixaban [Eliquis] 2.5 mg PO BID tablet 08/21/18 10/31/18 Unknown Rx Megestrol [Megace] 400 mg PO QDAY 10/31/18 10/31/18 Unknown History Mirtazapine [Remeron] 15 mg PO QHS 10/31/18 10/31/18 Unknown History Elaine-José Rx Tablet 1 tab PO QDAY 10/31/18 10/31/18 Unknown History Sodium Bicarbonate 650 mg PO BID 10/31/18 10/31/18 Unknown History traMADol [Ultram 50 MG tab] 25 mg PO Q12H PRN 10/31/18 10/31/18 Unknown History Active Medications: Generic Name Dose Route Start Last Admin Trade Name Freq PRN Reason Stop Dose Admin Acetaminophen 650 mg 11/02/18 09:25 11/08/18 10:57 Tylenol FEEDTUBE 650 mg Q6H PRN Administration Fever >101 Lipase/Protease/Amylase 1 each 11/01/18 10:[address] 10,500 Unit FEEDTUBE PRN PRN For Clogged Feeding Tube Epoetin [place] 20,000 unit 11/05/18 10:21 11/07/18 21:35 Procrit SUB-Q 20,000 unit ALEJO PRN Administration hemodialysis Famotidine 20 mg 11/01/18 10:00 11/08/18 10:57 Pepcid PO 20 mg DAILY KIRSTEN Administration Heparin Sodium (Porcine) 5,000 unit 10/29/18 22:00 11/09/18 05:58 Heparin SUB-Q 5,000 unit Q8HR KIRSTEN Administration Norepinephrine 4 mg in 250 mls @ 7.5 mls/hr 10/30/18 01:00 11/09/18 01:00 Levophed Drip 4 Mg/Ns 250 Ml IV 4 mcg/min TITR KIRSTEN 15 mls/hr Titration Protocol 2 MCG/MIN Sodium Chloride 100 mls @ 999 mls/hr 11/07/18 07:09 Nacl 0.9% IV ALEJO PRN Hypotension Vancomycin HCl 500 mg/ Sodium 110 mls @ 66.667 mls/hr 11/07/18 20:00 11/07/18 22:07 Chloride IV 11/09/18 23:59 66.667 mls/hr MoWeFr KIRSTEN Administration Insulin Human Lispro 0 unit 10/30/18 10:00 11/09/18 05:56 Humalog SUB-Q 3 unit Q6HR KIRSTEN Administration Protocol Levetiracetam 500 mg 11/07/18 10:00 11/08/18 21:58 Keppra PO 500 mg BID KIRSTEN Administration Simple Syrup 15 ml 11/01/18 10:04 11/06/18 00:09 Simple Syrup FEEDTUBE 15 ml PRN PRN Administration Hypoglycemia Simple Syrup 30 ml 11/01/18 10:04 Simple Syrup FEEDTUBE PRN PRN Hypoglycemia Sodium Bicarbonate 325 mg 11/01/18 10:04 Sodium Bicarbonate FEEDTUBE PRN PRN For Clogged Feeding Tube
[2018-11-09 08:03] LABS: Hematocrit 25.3 % (35.5-45.6); Hemoglobin 8.3 gm/dl (11.8-15.2); Mean Corpuscular HGB Conc 33 % (32-34); Mean Corpuscular Volume 101 fl (84-94); Platelet Count 254 K/mm3 (140-440); Red Blood Count 2.51 M/mm3 (3.65-5.03); Red Cell Distribution Width 15.1 % (13.2-15.2)
[2018-11-09] MEDS ORDERED: NACL 0.9% 100 ML IV PRN (08:48)
--- NOTE | 2018-11-09 09:04 | Progress Note ---
Assessment and Plan - Severe sepsis with septic shock with positive MRSA in tracheal aspirate On pressors and ivf iv antibiotic per ID - s/p PEA arrest continue cardiac monitoring with vent support - Right sided Pneumonia Sputum Cx showed MRSA continue with iv antibiotic per ID - Hypotension Multifactorial On pressors - Acute hypoxemic respiratory failure continue with mechanical ventilation - Acute metabolic encephalopathy with lateral gaze on mechamical ventilation and treatment of multiple underlying factors - ESRD on HD nephrology following - Hypokalemia Trend, and continue to supplement. - Hypernatremia - corrected - s/p right BKA - Prostate cancer s/p s/p catheter functioning wll - DVT on Heparin - Severe protein calorie malnutrition Dietary consult - Prognosis : very poor Subjective Date of service: 11/09/18 Principal diagnosis: sepsis, acute resp, failure. Interval history: remins intubated and on vent Objective - Constitutional Vitals: Vital Signs - 12hr 11/08/18 11/08/18 11/08/18 21:15 21:30 21:45 Temperature Pulse Rate 108 H 107 H 108 H Respiratory 35 H 29 H 32 H Rate Blood Pressure 94/50 103/55 103/59 O2 Sat by Pulse 99 100 100 Oximetry 11/08/18 11/08/18 11/08/18 22:00 22:10 22:15 Temperature Pulse Rate 108 H 108 H 108 H Respiratory 30 H 32 H 26 H Rate Blood Pressure 108/59 108/59 103/57 O2 Sat by Pulse 100 100 100 Oximetry 11/08/18 11/08/18 11/08/18 22:18 22:30 22:33 Temperature Pulse Rate 108 H 108 H 107 H Respiratory 29 H 29 H 25 H Rate Blood Pressure 103/57 109/58 109/58 O2 Sat by Pulse 100 100 100 Oximetry 11/08/18 11/08/18 11/08/18 22:45 23:00 23:15 Temperature Pulse Rate 108 H 108 H 109 H Respiratory 29 H 31 H 26 H Rate Blood Pressure 103/57 101/57 97/56 O2 Sat by Pulse 100 100 100 Oximetry 11/08/18 11/08/18 11/08/18 23:30 23:41 23:45 Temperature Pulse Rate 109 H 109 H 109 H Respiratory 28 H 25 H Rate Blood Pressure 104/55 103/57 108/56 O2 Sat by Pulse 100 100 100 Oximetry 11/09/18 11/09/18 11/09/18 00:00 00:15 00:30 Temperature 99.4 F Pulse Rate 108 H 108 H 108 H Respiratory 28 H 29 H 35 H Rate Blood Pressure 96/52 105/55 99/53 O2 Sat by Pulse 100 100 100 Oximetry 11/09/18 11/09/18 11/09/18 00:45 01:00 01:15 Temperature Pulse Rate 108 H 111 H 112 H Respiratory 13 30 H 33 H Rate Blood Pressure 113/52 95/55 106/56 O2 Sat by Pulse 100 99 100 Oximetry 11/09/18 11/09/18 11/09/18 01:30 01:45 02:00 Temperature Pulse Rate 112 H 114 H 112 H Respiratory 30 H 36 H 33 H Rate Blood Pressure 94/50 112/58 98/51 O2 Sat by Pulse 100 100 100 Oximetry 11/09/18 11/09/18 11/09/18 02:15 02:30 02:45 Temperature Pulse Rate 114 H 113 H 113 H Respiratory 35 H 28 H 27 H Rate Blood Pressure 100/53 101/50 93/48 O2 Sat by Pulse 100 100 99 Oximetry 11/09/18 11/09/18 11/09/18 03:00 03:15 03:30 Temperature Pulse Rate 113 H 114 H 114 H Respiratory 26 H 31 H 31 H Rate Blood Pressure 93/48 94/53 94/52 O2 Sat by Pulse 99 100 100 Oximetry 11/09/18 11/09/18 11/09/18 03:45 03:47 04:00 Temperature 99.9 F H Pulse Rate 114 H 114 H Respiratory 31 H 29 H Rate Blood Pressure 93/50 92/53 O2 Sat by Pulse 100 99 Oximetry 11/09/18 11/09/18 11/09/18 04:15 04:17 04:30 Temperature Pulse Rate 114 H 114 H 115 H Respiratory 24 25 H Rate Blood Pressure 93/52 92/53 95/53 O2 Sat by Pulse 99 99 99 Oximetry 11/09/18 11/09/18 11/09/18 04:45 05:00 05:15 Temperature Pulse Rate 117 H 118 H 115 H Respiratory 33 H 32 H 28 H Rate Blood Pressure 103/58 97/57 96/52 O2 Sat by Pulse 98 98 98 Oximetry 11/09/18 11/09/18 11/09/18 05:30 05:45 06:00 Temperature Pulse Rate 116 H 116 H 117 H Respiratory 29 H 19 21 Rate Blood Pressure 105/55 85/52 97/51 O2 Sat by Pulse 99 99 99 Oximetry 11/09/18 11/09/18 06:15 08:00 Temperature Pulse Rate 116 H 117 H Respiratory 25 H Rate Blood Pressure 94/55 124/56 O2 Sat by Pulse 99 97 Oximetry General appearance: Present: no acute distress, well-nourished, other (intubate mauro don vent) - EENT Eyes: PERRL - Neck Neck: supple - Respiratory Respiratory effort: normal Respiratory: bilateral: diminished - Cardiovascular Rhythm: regular Heart Sounds: Present: S1 & S2. Absent: gallop, rub Extremities: pulses intact, No edema, normal color, Full ROM Extremity abnormal: other (ro=ight AKA and left TMA) - Gastrointestinal General gastrointestinal: Present: soft, non-tender, normal bowel sounds - Integumentary Integumentary: clear, warm, dry - Musculoskeletal Musculoskeletal: other (on vent) - Neurologic Neurologic: moves all extremities - Labs CBC & Chem 7: 11/10/18 04:34 11/10/18 04:34 Labs: Abnormal lab results 11/08/18 11/08/18 11/08/18 Range/Units 11:21 18:29 23:10 RBC (3.65-5.03) M/mm3 Hgb (11.8-15.2) gm/dl Hct (35.5-45.6) % MCV (84-94) fl MCH (28-32) pg Sodium (137-145) mmol/L Potassium (3.6-5.0) mmol/L BUN (9-20) mg/dL Creatinine (0.8-1.5) mg/dL Glucose (75-100) mg/dL POC Glucose 191 H 224 H 197 H (70-105) Calcium (8.4-10.2) mg/dL 11/09/18 11/09/18 11/09/18 Range/Units 04:59 07:35 07:35 RBC 2.51 L (3.65-5.03) M/mm3 Hgb 8.3 L (11.8-15.2) gm/dl Hct 25.3 L (35.5-45.6) % MCV 101 H (84-94) fl MCH 33 H (28-32) pg Sodium 133 L (137-145) mmol/L Potassium 3.5 L (3.6-5.0) mmol/L BUN 54 H (9-20) mg/dL Creatinine 2.4 H (0.8-1.5) mg/dL Glucose 166 H (75-100) mg/dL POC Glucose 173 H (70-105) Calcium 8.0 L (8.4-10.2) mg/dL
[2018-11-09 09:33] LABS: Basophils % (Manual) 0 % (0.0-1.8); Total Cells Counted 100
[2018-11-09 09:34] LABS: Anisocytosis 1+; Macrocytosis 1+
[2018-11-09 09:35] LABS: Platelet Estimate Consistent w Auto
[2018-11-09] MEDS: TYLENOL FEEDTUBE PRN ×2 (09:50→18:46)
[2018-11-09] MEDS: PEPCID PO SCH (09:51)
[2018-11-09] MEDS: KEPPRA PO SCH ×2 (09:51→23:44)
--- NOTE | 2018-11-09 10:23 | Progress Note ---
Assessment and Plan Cultures: 10/29/2018 Blood culture: No growth 10/30/2018 sputum culture: MRSA 10/30/2018 urine culture: Mixed growth 11/02/2018 blood culture: no growth A/P: 73-year-old male with prostate cancer, ESRD on hemodialysis, diabetes mellitus, peripheral vascular disease status post right-sided AKA is admitted to the hospital as a transfer from the halfway due to altered mental status. Apparently, the patient had been refusing dialysis for a week prior to admission. Now with: 1) Severe sepsis with shock s/p PEA arrest: remains on pressors, mechanical ventilation. 2) Right-sided pneumonia with acute hypoxic respiratory failure: On mechanical ventilation. Chest x-ray showing right-sided infiltrate. Sputum culture growing MRSA. 3) Possible UTI: Patient with indwelling suprapubic catheter. Also with ESRD on hemodialysis. This makes UA difficult to interpret for infection since quite likely to have urinary sediment. 4) ESRD on hemodialysis: Noncompliant. Renally dose abx. 5) Peripheral vascular disease: Status post right BKA, left TMA. 6) Right gluteal decubitus ulcer with eschar: continue wound care. 7) R sphenoid sinusitis noted on CT: already on abx. Recs: continue renally vancomycin, target pre-dialysis level 10-20 mcg/ml (today is Day 10) repeat blood cultures ordered added IV Cefepime renally adjusted new fevers, etiology unclear, agree with nephrology, consider removal of femoral HD cath Overall extremely poor prognosis, strongly recommend comfort care MD [facility] C: [phone] O: [phone] F: [phone] Subjective Date of service: 11/09/18 Principal diagnosis: sepsis, acute resp, failure. Interval history: Fevers +. Remains unresponsive, on the vent, on pressors. Objective - Exam Narrative Exam: Physical Exam: Constitutional: unresponsive, intubated Head, Ears, Nose: Normocephalic, atraumatic. External ears, nose normal Eyes: Conjunctivae/corneas clear. No icterus. No ptosis. Neck: Supple, no meningeal signs Oral: intubated Cardiovascular: S1, S2 normal. Respiratory: Good air entry, clear to auscultation bilaterally GI: Soft, bowel sounds hypo. Suprapubic cath + Musculoskeletal: Right AKA, left TMA stumps healed. Right gluteal region with eschar. Left femoral HD cath + Skin: No rash or abscess Hem/Lymphatic: No palpable cervical or supraclavicular nodes. No lymphangitis Psych: no agitation Neurological: unresponsive, intubated, on vent - Constitutional Vitals: Vital Signs Temp Pulse Resp BP Pulse Ox 102.1 F H 117 H 35 H 128/55 98 11/09/18 08:00 11/09/18 09:15 11/09/18 09:15 11/09/18 09:15 11/09/18 09:15 Temperature -Last 24 Hours Temperature 102.1 F Temperature 99.9 F Temperature 99.4 F Temperature 99.4 F Temperature 101.1 F Temperature 100.4 F - Labs CBC & Chem 7: 11/09/18 07:35 11/09/18 07:35 Labs: Abnormal lab results 11/08/18 11/08/18 11/08/18 Range/Units 11:21 18:29 23:10 RBC (3.65-5.03) M/mm3 Hgb (11.8-15.2) gm/dl Hct (35.5-45.6) % MCV (84-94) fl MCH (28-32) pg Seg Neuts % (Manual) (40.0-70.0) % Lymphocytes % (Manual) (13.4-35.0) % Monocytes % (Manual) (0.0-7.3) % Lymphocytes # (Manual) (1.2-5.4) K/mm3 Sodium (137-145) mmol/L Potassium (3.6-5.0) mmol/L BUN (9-20) mg/dL Creatinine (0.8-1.5) mg/dL Glucose (75-100) mg/dL POC Glucose 191 H 224 H 197 H (70-105) Calcium (8.4-10.2) mg/dL 11/09/18 11/09/18 11/09/18 Range/Units 04:59 07:35 07:35 RBC 2.51 L (3.65-5.03) M/mm3 Hgb 8.3 L (11.8-15.2) gm/dl Hct 25.3 L (35.5-45.6) % MCV 101 H (84-94) fl MCH 33 H (28-32) pg Seg Neuts % (Manual) 79.0 H (40.0-70.0) % Lymphocytes % (Manual) 8.0 L (13.4-35.0) % Monocytes % (Manual) 9.0 H (0.0-7.3) % Lymphocytes # (Manual) 0.6 L (1.2-5.4) K/mm3 Sodium 133 L (137-145) mmol/L Potassium 3.5 L (3.6-5.0) mmol/L BUN 54 H (9-20) mg/dL Creatinine 2.4 H (0.8-1.5) mg/dL Glucose 166 H (75-100) mg/dL POC Glucose 173 H (70-105) Calcium 8.0 L (8.4-10.2) mg/dL
[2018-11-09] MEDS: PROCRIT SUB-Q PRN (12:15)
[2018-11-09] MEDS: LEVOPHED DRIP 4 MG/NS 250 ML 4 MG/250 ML BAG IV SCH ×2 (12:26→23:46)
--- NOTE | 2018-11-09 13:43 | Progress Note ---
Assessment and Plan -s/p PEA arrest -Severe sepsis with septic shock -Fevers, Tracheal aspirate positive for MRSA -Acute hypoxic respiratory failure on MVS -Acute encephalopathy( toxic, metabolic) -Severe protein calorie malnutrition -Hyperkalemia( resolved) -ESRD on HD, clotted graft , now has femoral HD catheter -Hyperosmolar hyperglycemic state( improving) -Hypotension, multifactorial, -Hypernatremia, resolved -PVD s/p right BKA -Prostate cancer s/p suprapubic catheter -Continue with MVS -Lung protective strategies -VAP bundle addressed. -Supplemental oxygen, wean for O2 sats>90% -Daily SBTs as tolerated -VTE prophylaxis( heparin) -Stress ulcer prophylaxis( Famotidine) -Tube feedings with aspiration precautions, HOB >40 -Glycemic control, target blood glucose of 140-180mg/dL -Free water flushes -Continue wound care by wound care team -Supportive HD -Wean vasopressor support for MAP>65 -Volume resuscitation -ABG and CXR in am -Antibitoics per ID CONDITION: CRITICAL PROGNOSIS: GUARDED CODE STATUS: DNAR I have spent 35 minutes in the direct care of this critically ill patient, excluding procedure time. Critical care time was spent on this patient and during his initial evaluation, multiple re-evaluations, ordering and interpretation of labs and imaging, medications, discussion with the ICU care team. There is a high probability of clinically significant, sudden, or life- threatening deterioration that has required multiple evaluations and direct attention, intervention, and management. Subjective Date of service: 11/09/18 Principal diagnosis: sepsis, acute resp, failure. Interval history: Patient is seen today for: Acute hypoxemic respiratory failure on MVS; Severe sepsis with septic shock; acute encephaloapthy; Seen and examined at bedside; 24hour events reviewed; nursing and respiratory care staff consulted; No fevers overnight, remains on norepinephrine for hemodynamic support Remains unresponsive, on mechanical ventilatory support, no dys-synchrony Vent AC- 18/350/6/25% ABG 7.424/31.7/74/20.8 Objective - Exam Narrative Exam: Physical Exam: Constitutional: unresponsive. on mechanical ventilatory support Head, Ears, Nose: Normocephalic, atraumatic. External ears, nose normal. Eyes: Conjunctivae/corneas clear. No icterus. No ptosis. Neck: trach + Cardiovascular: S1, S2 normal. Respiratory: Good air entry, clear to auscultation bilaterally GI: Soft, bowel sounds +. PEG + Suprapubic catheter + Musculoskeletal: Right AKA, left TMA stumps healed. Right gluteal region with eschar. Left femoral trialysis cath +. Edema + Skin: No rash or abscess Hem/Lymphatic: No palpable cervical or supraclavicular nodes. No lymphangitis Psych: no agitation Neurological: unresponsive, intubated, on vent. Vital Signs - 12hr 11/09/18 11/09/18 11/09/18 01:45 02:00 02:15 Temperature Pulse Rate 114 H 112 H 114 H Pulse Rate [ From Monitor] Respiratory 36 H 33 H 35 H Rate Blood Pressure 112/58 98/51 100/53 O2 Sat by Pulse 100 100 100 Oximetry O2 Sat by Pulse Oximetry [ Bilateral Lower Lobe] 11/09/18 11/09/18 11/09/18 02:30 02:45 03:00 Temperature Pulse Rate 113 H 113 H 113 H Pulse Rate [ From Monitor] Respiratory 28 H 27 H 26 H Rate Blood Pressure 101/50 93/48 93/48 O2 Sat by Pulse 100 99 99 Oximetry O2 Sat by Pulse Oximetry [ Bilateral Lower Lobe] 11/09/18 11/09/18 11/09/18 03:15 03:30 03:45 Temperature Pulse Rate 114 H 114 H 114 H Pulse Rate [ From Monitor] Respiratory 31 H 31 H 31 H Rate Blood Pressure 94/53 94/52 93/50 O2 Sat by Pulse 100 100 100 Oximetry O2 Sat by Pulse Oximetry [ Bilateral Lower Lobe] 11/09/18 11/09/18 11/09/18 03:47 04:00 04:15 Temperature 99.9 F H Pulse Rate 114 H 114 H Pulse Rate [ From Monitor] Respiratory 29 H 24 Rate Blood Pressure 92/53 93/52 O2 Sat by Pulse 99 99 Oximetry O2 Sat by Pulse Oximetry [ Bilateral Lower Lobe] 11/09/18 11/09/18 11/09/18 04:17 04:30 04:45 Temperature Pulse Rate 114 H 115 H 117 H Pulse Rate [ From Monitor] Respiratory 25 H 33 H Rate Blood Pressure 92/53 95/53 103/58 O2 Sat by Pulse 99 99 98 Oximetry O2 Sat by Pulse Oximetry [ Bilateral Lower Lobe] 11/09/18 11/09/18 11/09/18 05:00 05:15 05:30 Temperature Pulse Rate 118 H 115 H 116 H Pulse Rate [ From Monitor] Respiratory 32 H 28 H 29 H Rate Blood Pressure 97/57 96/52 105/55 O2 Sat by Pulse 98 98 99 Oximetry O2 Sat by Pulse Oximetry [ Bilateral Lower Lobe] 11/09/18 11/09/18 11/09/18 05:45 06:00 06:15 Temperature Pulse Rate 116 H 117 H 116 H Pulse Rate [ From Monitor] Respiratory 19 21 25 H Rate Blood Pressure 85/52 97/51 94/55 O2 Sat by Pulse 99 99 99 Oximetry O2 Sat by Pulse Oximetry [ Bilateral Lower Lobe] 11/09/18 11/09/18 11/09/18 06:30 06:45 07:00 Temperature Pulse Rate 119 H 120 H 119 H Pulse Rate [ From Monitor] Respiratory 32 H 34 H 19 Rate Blood Pressure 89/53 92/53 104/56 O2 Sat by Pulse 99 99 99 Oximetry O2 Sat by Pulse Oximetry [ Bilateral Lower Lobe] 11/09/18 11/09/18 11/09/18 07:15 07:31 07:45 Temperature Pulse Rate 118 H 118 H 117 H Pulse Rate [ From Monitor] Respiratory 21 28 H 29 H Rate Blood Pressure 104/56 104/56 103/56 O2 Sat by Pulse 100 99 98 Oximetry O2 Sat by Pulse Oximetry [ Bilateral Lower Lobe] 11/09/18 11/09/18 11/09/18 08:00 08:15 08:30 Temperature 102.1 F H Pulse Rate 117 H 116 H 117 H Pulse Rate [ 108 H From Monitor] Respiratory 29 H 37 H 36 H Rate Blood Pressure 124/56 141/64 129/64 O2 Sat by Pulse 97 97 97 Oximetry O2 Sat by Pulse Oximetry [ Bilateral Lower Lobe] 11/09/18 11/09/18 11/09/18 08:45 09:00 09:15 Temperature Pulse Rate 118 H 118 H 117 H Pulse Rate [ From Monitor] Respiratory 36 H 37 H 35 H Rate Blood Pressure 146/65 135/59 128/55 O2 Sat by Pulse 99 98 98 Oximetry O2 Sat by Pulse Oximetry [ Bilateral Lower Lobe] 11/09/18 11/09/18 11/09/18 09:55 10:00 10:15 Temperature 100.1 F H Pulse Rate 115 H 114 H 113 H Pulse Rate [ From Monitor] Respiratory 35 H Rate Blood Pressure 124/58 122/59 134/60 O2 Sat by Pulse Oximetry O2 Sat by Pulse 98 Oximetry [ Bilateral Lower Lobe] 11/09/18 11/09/18 11/09/18 10:30 10:45 11:00 Temperature Pulse Rate 116 H 118 H 120 H Pulse Rate [ From Monitor] Respiratory Rate Blood Pressure 115/52 120/52 105/56 O2 Sat by Pulse Oximetry O2 Sat by Pulse Oximetry [ Bilateral Lower Lobe] 11/09/18 11/09/18 11/09/18 11:15 11:30 12:00 Temperature Pulse Rate 118 H 120 H Pulse Rate [ From Monitor] Respiratory Rate Blood Pressure 107/54 109/53 105/51 O2 Sat by Pulse 97 Oximetry O2 Sat by Pulse Oximetry [ Bilateral Lower Lobe] CBC and BMP: 11/16/18 05:45 11/16/18 05:45 ABG, PT/INR, D-dimer: ABG POC ABG pH 7.384 (7.35-7.45) 11/07/18 11:37 POC ABG pCO2 35.9 (35-45) 11/07/18 11:37 POC ABG pO2 94 (80-105) 11/07/18 11:37 POC ABG HCO3 21.5 (22-26 mml/L) 11/07/18 11:37 POC ABG Total CO2 23 (23-27mmol/L) 11/07/18 11:37 POC ABG O2 Sat 97 11/07/18 11:37 PT/INR, D-dimer PT 15.8 Sec. (12.2-14.9) H 11/08/18 07:09 INR 1.18 (0.87-1.13) H 11/08/18 07:09 Abnormal lab findings: Abnormal Labs 10/29/18 10/29/18 10/29/18 17:13 17:13 17:13 RBC 3.62 L Hgb Hct MCV 102 H MCH 34 H RDW 19.6 H Plt Count Lymph % (Auto) [place] % (Auto) 7.8 H Lymph # Seg Neutrophils % 71.2 H Seg Neuts % (Manual) Lymphocytes % (Manual) Monocytes % (Manual) Seg Neutrophils # Lymphocytes # (Manual) PT INR POC ABG pH POC ABG pCO2 POC ABG pO2 Sodium 164 H* Potassium 6.2 H* Chloride 127.5 H Carbon Dioxide BUN 178 H Creatinine 4.2 H Glucose 131 H POC Glucose Calcium 10.7 H C-Reactive Protein Total Protein 9.5 H Albumin 2.6 L TSH 5.310 H Urine pH Urine WBC (Auto) Vancomycin Trough 10/29/18 10/30/18 10/30/18 23:57 00:06 04:35 RBC Hgb Hct MCV MCH RDW Plt Count Lymph % (Auto) [place] % (Auto) Lymph # Seg Neutrophils % Seg Neuts % (Manual) Lymphocytes % (Manual) Monocytes % (Manual) Seg Neutrophils # Lymphocytes # (Manual) PT INR POC ABG pH 7.488 H POC ABG pCO2 32.1 L 34.9 L POC ABG pO2 144 H Sodium Potassium Chloride Carbon Dioxide BUN Creatinine Glucose POC Glucose 131 H Calcium C-Reactive Protein Total Protein Albumin TSH Urine pH Urine WBC (Auto) Vancomycin Trough 10/30/18 10/30/18 10/30/18 05:13 08:54 08:54 RBC 3.56 L Hgb 11.7 L Hct MCV 102 H MCH 33 H RDW 19.2 H Plt Count Lymph % (Auto) [place] % (Auto) Lymph # Seg Neutrophils % Seg Neuts % (Manual) Lymphocytes % (Manual) Monocytes % (Manual) Seg Neutrophils # Lymphocytes # (Manual) PT INR POC ABG pH POC ABG pCO2 POC ABG pO2 Sodium Potassium Chloride Carbon Dioxide BUN Creatinine Glucose POC Glucose 316 H Calcium C-Reactive Protein 5.20 H Total Protein Albumin 2.2 L TSH Urine pH Urine WBC (Auto) Vancomycin Trough 10/30/18 10/30/18 10/30/18 08:59 12:03 18:30 RBC Hgb Hct MCV MCH RDW Plt Count Lymph % (Auto) [place] % (Auto) Lymph # Seg Neutrophils % Seg Neuts % (Manual) Lymphocytes % (Manual) Monocytes % (Manual) Seg Neutrophils # Lymphocytes # (Manual) PT INR POC ABG pH POC ABG pCO2 POC ABG pO2 Sodium 146 H D Potassium Chloride Carbon Dioxide BUN 86 H Creatinine 2.7 H Glucose 262 H POC Glucose 232 H 57 L Calcium C-Reactive Protein Total Protein Albumin TSH Urine pH Urine WBC (Auto) Vancomycin Trough 10/30/18 10/30/18 10/30/18 18:39 19:07 19:42 RBC Hgb Hct MCV MCH RDW Plt Count Lymph % (Auto) [place] % (Auto) Lymph # Seg Neutrophils % Seg Neuts % (Manual) Lymphocytes % (Manual) Monocytes % (Manual) Seg Neutrophils # Lymphocytes # (Manual) PT INR POC ABG pH POC ABG pCO2 POC ABG pO2 Sodium Potassium Chloride Carbon Dioxide BUN Creatinine Glucose POC Glucose < 40 L 51 L Calcium C-Reactive Protein Total Protein Albumin TSH Urine pH 8.0 H Urine WBC (Auto) > 182.0 H Vancomycin Trough 10/30/18 10/30/18 10/30/18 19:51 23:13 23:20 RBC Hgb Hct MCV MCH RDW Plt Count Lymph % (Auto) [place] % (Auto) Lymph # Seg Neutrophils % Seg Neuts % (Manual) Lymphocytes % (Manual) Monocytes % (Manual) Seg Neutrophils # Lymphocytes # (Manual) PT INR POC ABG pH POC ABG pCO2 POC ABG pO2 Sodium Potassium Chloride 108.5 H Carbon Dioxide 21 L BUN 96 H Creatinine 3.0 H Glucose 865 H* 150 H POC Glucose 152 H Calcium C-Reactive Protein Total Protein Albumin TSH Urine pH Urine WBC (Auto) Vancomycin Trough 10/30/18 10/31/18 10/31/18 23:40 04:43 04:43 RBC Hgb Hct MCV 100 H MCH 33 H RDW 18.1 H Plt Count Lymph % (Auto) [place] % (Auto) Lymph # Seg Neutrophils % Seg Neuts % (Manual) Lymphocytes % (Manual) 4.0 L Monocytes % (Manual) Seg Neutrophils # Lymphocytes # (Manual) 0.3 L PT INR POC ABG pH POC ABG pCO2 POC ABG pO2 Sodium Potassium Chloride Carbon Dioxide 19 L BUN 98 H Creatinine 3.2 H Glucose 184 H POC Glucose 145 H Calcium C-Reactive Protein Total Protein Albumin TSH Urine pH Urine WBC (Auto) Vancomycin Trough 10/31/18 10/31/18 10/31/18 05:44 11:44 13:19 RBC Hgb Hct MCV MCH RDW Plt Count Lymph % (Auto) [place] % (Auto) Lymph # Seg Neutrophils % Seg Neuts % (Manual) Lymphocytes % (Manual) Monocytes % (Manual) Seg Neutrophils # Lymphocytes # (Manual) PT INR POC ABG pH POC ABG pCO2 POC ABG pO2 64 L Sodium Potassium Chloride Carbon Dioxide BUN Creatinine Glucose POC Glucose 142 H 196 H Calcium C-Reactive Protein Total Protein Albumin TSH Urine pH Urine WBC (Auto) Vancomycin Trough 04/10/1611/01/18 11/01/18 17:36 04:07 04:07 RBC 3.40 L Hgb 11.2 L Hct 33.6 L MCV 99 H MCH 33 H RDW 17.5 H Plt Count Lymph % (Auto) [place] % (Auto) Lymph # Seg Neutrophils % Seg Neuts % (Manual) 80.0 H Lymphocytes % (Manual) 4.0 L Monocytes % (Manual) Seg Neutrophils # Lymphocytes # (Manual) 0.3 L PT INR POC ABG pH POC ABG pCO2 POC ABG pO2 Sodium Potassium Chloride Carbon Dioxide 19 L BUN 108 H Creatinine 3.9 H Glucose 138 H POC Glucose 174 H Calcium 7.9 L C-Reactive Protein Total Protein Albumin TSH Urine pH Urine WBC (Auto) Vancomycin Trough 11/01/18 11/01/18 11/01/18 05:24 05:36 13:09 RBC Hgb Hct MCV MCH RDW Plt Count Lymph % (Auto) [place] % (Auto) Lymph # Seg Neutrophils % Seg Neuts % (Manual) Lymphocytes % (Manual) Monocytes % (Manual) Seg Neutrophils # Lymphocytes # (Manual) PT INR POC ABG pH POC ABG pCO2 POC ABG pO2 65 L Sodium Potassium Chloride Carbon Dioxide BUN Creatinine Glucose POC Glucose 153 H 249 H Calcium C-Reactive Protein Total Protein Albumin TSH Urine pH Urine WBC (Auto) Vancomycin Trough 11/01/18 11/02/18 11/02/18 18:11 05:04 07:17 RBC 3.08 L Hgb 10.1 L Hct 30.1 L MCV 98 H MCH 33 H RDW 16.7 H Plt Count Lymph % (Auto) [place] % (Auto) Lymph # Seg Neutrophils % Seg Neuts % (Manual) 92.0 H Lymphocytes % (Manual) 3.0 L Monocytes % (Manual) Seg Neutrophils # Lymphocytes # (Manual) 0.2 L PT INR POC ABG pH POC ABG pCO2 POC ABG pO2 Sodium Potassium Chloride Carbon Dioxide BUN Creatinine Glucose POC Glucose 175 H 118 H Calcium C-Reactive Protein Total Protein Albumin TSH Urine pH Urine WBC (Auto) Vancomycin Trough 11/02/18 11/02/18 11/02/18 07:54 09:32 12:28 RBC Hgb Hct MCV MCH RDW Plt Count Lymph % (Auto) [place] % (Auto) Lymph # Seg Neutrophils % Seg Neuts % (Manual) Lymphocytes % (Manual) Monocytes % (Manual) Seg Neutrophils # Lymphocytes # (Manual) PT INR POC ABG pH 7.514 H POC ABG pCO2 POC ABG pO2 70 L Sodium 135 L Potassium Chloride Carbon Dioxide BUN 48 H Creatinine 2.2 H Glucose 170 H POC Glucose 242 H Calcium 7.4 L C-Reactive Protein Total Protein Albumin TSH Urine pH Urine WBC (Auto) Vancomycin Trough 11/02/18 11/03/18 11/03/18 23:32 04:34 05:10 RBC 2.87 L Hgb 9.4 L Hct 28.5 L MCV 99 H MCH 33 H RDW 16.7 H Plt Count Lymph % (Auto) [place] % (Auto) Lymph # Seg Neutrophils % Seg Neuts % (Manual) 91.0 H Lymphocytes % (Manual) 4.0 L Monocytes % (Manual) Seg Neutrophils # Lymphocytes # (Manual) 0.3 L PT INR POC ABG pH POC ABG pCO2 33.2 L POC ABG pO2 76 L Sodium Potassium Chloride Carbon Dioxide BUN Creatinine Glucose POC Glucose 177 H Calcium C-Reactive Protein Total Protein Albumin TSH Urine pH Urine WBC (Auto) Vancomycin Trough 11/03/18 11/03/18 11/03/18 06:04 12:26 18:43 RBC Hgb Hct MCV MCH RDW Plt Count Lymph % (Auto) [place] % (Auto) Lymph # Seg Neutrophils % Seg Neuts % (Manual) Lymphocytes % (Manual) Monocytes % (Manual) Seg Neutrophils # Lymphocytes # (Manual) PT INR POC ABG pH POC ABG pCO2 POC ABG pO2 Sodium Potassium Chloride Carbon Dioxide BUN Creatinine Glucose POC Glucose 168 H 196 H 153 H Calcium C-Reactive Protein Total Protein Albumin TSH Urine pH Urine WBC (Auto) Vancomycin Trough 11/03/18 11/04/18 11/04/18 23:34 03:50 05:05 RBC 2.74 L Hgb 9.1 L Hct 27.3 L MCV 99 H MCH 33 H RDW 16.5 H Plt Count Lymph % (Auto) [place] % (Auto) Lymph # Seg Neutrophils % Seg Neuts % (Manual) 87.0 H Lymphocytes % (Manual) 7.0 L Monocytes % (Manual) Seg Neutrophils # Lymphocytes # (Manual) 0.5 L PT INR POC ABG pH POC ABG pCO2 31.7 L POC ABG pO2 74 L Sodium Potassium Chloride Carbon Dioxide BUN Creatinine Glucose POC Glucose 213 H Calcium C-Reactive Protein Total Protein Albumin TSH Urine pH Urine WBC (Auto) Vancomycin Trough 11/04/18 11/04/18 11/04/18 05:05 05:23 12:26 RBC Hgb Hct MCV MCH RDW Plt Count Lymph % (Auto) [place] % (Auto) Lymph # Seg Neutrophils % Seg Neuts % (Manual) Lymphocytes % (Manual) Monocytes % (Manual) Seg Neutrophils # Lymphocytes # (Manual) PT INR POC ABG pH POC ABG pCO2 POC ABG pO2 Sodium Potassium Chloride Carbon Dioxide BUN 84 H Creatinine 3.3 H Glucose 177 H POC Glucose 196 H 182 H Calcium 7.6 L C-Reactive Protein Total Protein Albumin TSH Urine pH Urine WBC (Auto) Vancomycin Trough 11/04/18 11/04/18 11/05/18 13:25 22:36 05:07 RBC Hgb Hct MCV MCH RDW Plt Count Lymph % (Auto) [place] % (Auto) Lymph # Seg Neutrophils % Seg Neuts % (Manual) Lymphocytes % (Manual) Monocytes % (Manual) Seg Neutrophils # Lymphocytes # (Manual) PT INR POC ABG pH POC ABG pCO2 30.1 L POC ABG pO2 63 L Sodium Potassium Chloride Carbon Dioxide BUN Creatinine Glucose POC Glucose 159 H Calcium C-Reactive Protein Total Protein Albumin TSH Urine pH Urine WBC (Auto) Vancomycin Trough 4.4 L 11/05/18 11/05/18 11/05/18 05:42 06:36 12:54 RBC Hgb Hct MCV MCH RDW Plt Count Lymph % (Auto) [place] % (Auto) Lymph # Seg Neutrophils % Seg Neuts % (Manual) Lymphocytes % (Manual) Monocytes % (Manual) Seg Neutrophils # Lymphocytes # (Manual) PT INR POC ABG pH POC ABG pCO2 POC ABG pO2 Sodium 134 L Potassium 3.4 L Chloride Carbon Dioxide 18 L BUN 93 H Creatinine 3.7 H Glucose 230 H POC Glucose 233 H 237 H Calcium 7.8 L C-Reactive Protein Total Protein Albumin TSH Urine pH Urine WBC (Auto) Vancomycin Trough 11/05/18 11/05/18 11/06/18 19:36 23:35 01:59 RBC Hgb Hct MCV MCH RDW Plt Count Lymph % (Auto) [place] % (Auto) Lymph # Seg Neutrophils % Seg Neuts % (Manual) Lymphocytes % (Manual) Monocytes % (Manual) Seg Neutrophils # Lymphocytes # (Manual) PT INR POC ABG pH POC ABG pCO2 POC ABG pO2 Sodium Potassium Chloride Carbon Dioxide BUN Creatinine Glucose POC Glucose 174 H 56 L 112 H Calcium C-Reactive Protein Total Protein Albumin TSH Urine pH Urine WBC (Auto) Vancomycin Trough 11/06/18 11/06/18 11/06/18 04:33 05:06 07:24 RBC 2.83 L Hgb 9.3 L Hct 27.9 L MCV 99 H MCH 33 H RDW 15.9 H Plt Count 133 L Lymph % (Auto) [place] % (Auto) Lymph # Seg Neutrophils % Seg Neuts % (Manual) 94.0 H Lymphocytes % (Manual) 4.0 L Monocytes % (Manual) Seg Neutrophils # Lymphocytes # (Manual) 0.3 L PT INR POC ABG pH POC ABG pCO2 32.4 L POC ABG pO2 73 L Sodium Potassium Chloride Carbon Dioxide BUN Creatinine Glucose POC Glucose 139 H Calcium C-Reactive Protein Total Protein Albumin TSH Urine pH Urine WBC (Auto) Vancomycin Trough 11/06/18 11/06/18 11/06/18 07:24 11:52 17:16 RBC Hgb Hct MCV MCH RDW Plt Count Lymph % (Auto) [place] % (Auto) Lymph # Seg Neutrophils % Seg Neuts % (Manual) Lymphocytes % (Manual) Monocytes % (Manual) Seg Neutrophils # Lymphocytes # (Manual) PT INR POC ABG pH POC ABG pCO2 POC ABG pO2 Sodium 136 L Potassium 3.2 L Chloride Carbon Dioxide BUN 59 H Creatinine 2.3 H Glucose 137 H POC Glucose 212 H 194 H Calcium 7.4 L C-Reactive Protein Total Protein Albumin TSH Urine pH Urine WBC (Auto) Vancomycin Trough 11/07/18 11/07/18 11/07/18 00:44 05:56 06:12 RBC 2.64 L Hgb 8.7 L Hct 26.3 L MCV 100 H MCH 33 H RDW 15.7 H Plt Count Lymph % (Auto) 4.6 L [place] % (Auto) Lymph # 0.4 L Seg Neutrophils % 89.4 H Seg Neuts % (Manual) Lymphocytes % (Manual) Monocytes % (Manual) Seg Neutrophils # 8.3 H Lymphocytes # (Manual) PT INR POC ABG pH POC ABG pCO2 POC ABG pO2 Sodium Potassium Chloride Carbon Dioxide BUN Creatinine Glucose POC Glucose 193 H 145 H Calcium C-Reactive Protein Total Protein Albumin TSH Urine pH Urine WBC (Auto) Vancomycin Trough 11/07/18 11/07/18 11/07/18 06:12 12:20 17:27 RBC Hgb Hct MCV MCH RDW Plt Count Lymph % (Auto) [place] % (Auto) Lymph # Seg Neutrophils % Seg Neuts % (Manual) Lymphocytes % (Manual) Monocytes % (Manual) Seg Neutrophils # Lymphocytes # (Manual) PT INR POC ABG pH POC ABG pCO2 POC ABG pO2 Sodium Potassium Chloride Carbon Dioxide BUN 74 H Creatinine 2.8 H Glucose 143 H POC Glucose 207 H 170 H Calcium 7.7 L C-Reactive Protein Total Protein Albumin TSH Urine pH Urine WBC (Auto) Vancomycin Trough 11/07/18 11/08/18 11/08/18 23:40 06:04 07:09 RBC Hgb Hct MCV MCH RDW Plt Count Lymph % (Auto) [place] % (Auto) Lymph # Seg Neutrophils % Seg Neuts % (Manual) Lymphocytes % (Manual) Monocytes % (Manual) Seg Neutrophils # Lymphocytes # (Manual) PT 15.8 H INR 1.18 H POC ABG pH POC ABG pCO2 POC ABG pO2 Sodium Potassium Chloride Carbon Dioxide BUN Creatinine Glucose POC Glucose 188 H 170 H Calcium C-Reactive Protein Total Protein Albumin TSH Urine pH Urine WBC (Auto) Vancomycin Trough 11/08/18 11/08/18 11/08/18 11:21 18:29 23:10 RBC Hgb Hct MCV MCH RDW Plt Count Lymph % (Auto) [place] % (Auto) Lymph # Seg Neutrophils % Seg Neuts % (Manual) Lymphocytes % (Manual) Monocytes % (Manual) Seg Neutrophils # Lymphocytes # (Manual) PT INR POC ABG pH POC ABG pCO2 POC ABG pO2 Sodium Potassium Chloride Carbon Dioxide BUN Creatinine Glucose POC Glucose 191 H 224 H 197 H Calcium C-Reactive Protein Total Protein Albumin TSH Urine pH Urine WBC (Auto) Vancomycin Trough 11/09/18 11/09/18 11/09/18 04:59 07:35 07:35 RBC 2.51 L Hgb 8.3 L Hct 25.3 L MCV 101 H MCH 33 H RDW Plt Count Lymph % (Auto) [place] % (Auto) Lymph # Seg Neutrophils % Seg Neuts % (Manual) 79.0 H Lymphocytes % (Manual) 8.0 L Monocytes % (Manual) 9.0 H Seg Neutrophils # Lymphocytes # (Manual) 0.6 L PT INR POC ABG pH POC ABG pCO2 POC ABG pO2 Sodium 133 L Potassium 3.5 L Chloride Carbon Dioxide BUN 54 H Creatinine 2.4 H Glucose 166 H POC Glucose 173 H Calcium 8.0 L C-Reactive Protein Total Protein Albumin TSH Urine pH Urine WBC (Auto) Vancomycin Trough 11/09/18 11:47 RBC Hgb Hct MCV MCH RDW Plt Count Lymph % (Auto) [place] % (Auto) Lymph # Seg Neutrophils % Seg Neuts % (Manual) Lymphocytes % (Manual) Monocytes % (Manual) Seg Neutrophils # Lymphocytes # (Manual) PT INR POC ABG pH POC ABG pCO2 POC ABG pO2 Sodium Potassium Chloride Carbon Dioxide BUN Creatinine Glucose POC Glucose 226 H Calcium C-Reactive Protein Total Protein Albumin TSH Urine pH Urine WBC (Auto) Vancomycin Trough Chest x-ray: image reviewed
[2018-11-09] MEDS: MAXIPIME/NS 1 GM/100 ML 1 GM/100 ML BAG IV SCH (17:57)
[2018-11-09] MEDS: VANCOMYCIN 500 MG in NACL 0.9% 100 ML IV SCH (23:44)
[2018-11-10] MEDS: HumaLOG SUB-Q SCH ×5 (02:29→23:56)
[2018-11-10 04:58] LABS: Hematocrit 24.1 % (35.5-45.6); Hemoglobin 7.8 gm/dl (11.8-15.2); Mean Corpuscular HGB Conc 32 % (32-34); Mean Corpuscular Volume 102 fl (84-94); Platelet Count 231 K/mm3 (140-440); Red Blood Count 2.36 M/mm3 (3.65-5.03)
[2018-11-10 05:23] LABS: Albumin 1.4 g/dL (3.9-5); Calcium 8.3 mg/dL (8.4-10.2)
[2018-11-10 07:15] LABS: Band Neutrophils # (Manual) 0.3 K/mm3; Basophils % (Manual) 0 % (0.0-1.8); Eosinophils % (Manual) 0 % (0.0-4.3); Total Cells Counted 100
[2018-11-10 07:16] LABS: Hypochromasia Few; Platelet Estimate Consistent w Auto; Target Cells Few
[2018-11-10] MEDS: KEPPRA PO SCH ×2 (10:19→22:01)
[2018-11-10] MEDS: PEPCID PO SCH (10:19)
--- NOTE | 2018-11-10 12:04 | Progress Note ---
Assessment and Plan 1. ESRD: Patient was last dialyzed 2 days ago. Patient remain hypotensive on pressors. Monitor for HEAD OF MOBILE needs. S/p Hemodialysis yesterday. 2. FEN: Hyperkalemia, improved. Hypernatremia, improved. UF with HD as tolerated. 3. Respiratory failure: On vent. 4. Septic Shock: On Levophed. 5. Pneumonia. 6. Anemia: Epogen. Subjective Date of service: 11/10/18 Principal diagnosis: sepsis, acute resp, failure. Interval history: Patient was seen and examined at the bedside. Objective - Vital Signs Vital signs: Vital Signs - 12hr 11/10/18 11/10/18 11/10/18 00:15 00:30 00:45 Temperature Pulse Rate 106 H 106 H 106 H Pulse Rate [ From Monitor] Respiratory 22 22 25 H Rate Blood Pressure 100/48 100/49 88/52 O2 Sat by Pulse 100 100 100 Oximetry 11/10/18 11/10/18 11/10/18 01:00 01:15 01:30 Temperature Pulse Rate 105 H 108 H 108 H Pulse Rate [ From Monitor] Respiratory 22 26 H 25 H Rate Blood Pressure 88/46 98/53 109/53 O2 Sat by Pulse 99 100 99 Oximetry 11/10/18 11/10/18 11/10/18 01:45 02:00 02:15 Temperature Pulse Rate 108 H 108 H 109 H Pulse Rate [ From Monitor] Respiratory 23 23 18 Rate Blood Pressure 117/52 106/49 100/55 O2 Sat by Pulse 99 100 100 Oximetry 11/10/18 11/10/18 11/10/18 02:30 02:45 03:00 Temperature Pulse Rate 109 H 108 H 110 H Pulse Rate [ From Monitor] Respiratory 21 23 17 Rate Blood Pressure 105/57 109/51 119/56 O2 Sat by Pulse 99 99 99 Oximetry 11/10/18 11/10/18 11/10/18 03:15 03:18 03:30 Temperature 101.3 F H Pulse Rate 110 H 112 H Pulse Rate [ From Monitor] Respiratory 25 H 26 H Rate Blood Pressure 105/49 119/51 O2 Sat by Pulse 99 99 Oximetry 11/10/18 11/10/18 11/10/18 03:45 04:00 04:15 Temperature Pulse Rate 114 H 112 H 113 H Pulse Rate [ 113 H From Monitor] Respiratory 30 H 25 H 29 H Rate Blood Pressure 130/55 107/51 114/50 O2 Sat by Pulse 99 99 99 Oximetry 11/10/18 11/10/18 11/10/18 04:30 04:45 05:00 Temperature Pulse Rate 113 H 113 H 114 H Pulse Rate [ From Monitor] Respiratory 25 H 26 H 24 Rate Blood Pressure 114/49 111/53 112/51 O2 Sat by Pulse 99 99 99 Oximetry 11/10/18 11/10/18 11/10/18 05:15 05:21 05:30 Temperature Pulse Rate 114 H 99 H 114 H Pulse Rate [ From Monitor] Respiratory 27 H 27 H Rate Blood Pressure 108/50 108/50 109/52 O2 Sat by Pulse 99 100 99 Oximetry 11/10/18 11/10/18 11/10/18 05:45 06:00 06:15 Temperature Pulse Rate 114 H 113 H 115 H Pulse Rate [ From Monitor] Respiratory 24 24 25 H Rate Blood Pressure 108/52 107/53 116/52 O2 Sat by Pulse 99 99 99 Oximetry 11/10/18 11/10/18 11/10/18 06:30 06:45 07:00 Temperature Pulse Rate 114 H 116 H 115 H Pulse Rate [ From Monitor] Respiratory 24 28 H 25 H Rate Blood Pressure 117/52 121/55 113/51 O2 Sat by Pulse 100 99 100 Oximetry 11/10/18 11/10/18 11/10/18 07:15 07:30 07:45 Temperature Pulse Rate 117 H 117 H 116 H Pulse Rate [ From Monitor] Respiratory 26 H 29 H 25 H Rate Blood Pressure 105/48 110/50 109/49 O2 Sat by Pulse 99 99 100 Oximetry 11/10/18 11/10/18 11/10/18 08:00 08:15 08:25 Temperature 100 F H Pulse Rate 117 H 116 H 117 H Pulse Rate [ From Monitor] Respiratory 27 H 25 H Rate Blood Pressure 119/52 117/53 117/53 O2 Sat by Pulse 99 99 100 Oximetry 11/10/18 11/10/18 11/10/18 08:29 08:30 08:32 Temperature Pulse Rate 117 H 118 H 116 H Pulse Rate [ From Monitor] Respiratory 36 H 36 H Rate Blood Pressure 124/56 124/56 124/56 O2 Sat by Pulse 100 100 100 Oximetry 11/10/18 11:37 Temperature Pulse Rate 117 H Pulse Rate [ From Monitor] Respiratory Rate Blood Pressure 102/52 O2 Sat by Pulse 97 Oximetry - General Appearance General appearance: well-developed, appears stated age, cachectic, intubated, other (on vent) EENT: ATNC Respiratory: Present: Clear to Ascultation Cardiology: regular, S1S2, no murmurs Gastrointestinal: normoactive bowel sounds, no tenderness, no distended, other (suprapubic catheter) Neurologic: obtunded Musculoskeletal: other (R AKA, L TMA, L groin dialysis catheter, tarce extremity edema noted) - Lab 11/11/18 06:07 11/11/18 06:07 Most recent lab results Calcium 8.3 mg/dL (8.4-10.2) L 11/10/18 04:34 Phosphorus 3.10 mg/dL (2.5-4.5) 11/05/18 06:36 Medications & Allergies - Medications Allergies/Adverse Reactions: Allergies No Known Allergies Allergy (Verified 01/18/18 20:10) Home Medications: Home Medications Medication Instructions Recorded Confirmed Last Taken Type Acetaminophen [Acetaminophen TAB] 650 mg PO Q4H PRN 03/12/18 10/31/18 Unknown History Calcium Acetate [Phoslo] 667 mg PO TID 03/12/18 10/31/18 05/13/18 17:00 History Carvedilol [Coreg] 6.25 mg PO BID 03/12/18 10/31/18 05/13/18 09:00 History Ergocalciferol 50,000 unit PO QWEEK 03/12/18 10/31/18 05/11/18 09:00 History Apixaban [Eliquis] 2.5 mg PO BID tablet 08/21/18 10/31/18 Unknown Rx Megestrol [Megace] 400 mg PO QDAY 10/31/18 10/31/18 Unknown History Mirtazapine [Remeron] 15 mg PO QHS 10/31/18 10/31/18 Unknown History Elaine-José Rx Tablet 1 tab PO QDAY 10/31/18 10/31/18 Unknown History Sodium Bicarbonate 650 mg PO BID 10/31/18 10/31/18 Unknown History traMADol [Ultram 50 MG tab] 25 mg PO Q12H PRN 10/31/18 10/31/18 Unknown History Active Medications: Generic Name Dose Route Start Last Admin Trade Name Freq PRN Reason Stop Dose Admin Acetaminophen 650 mg 11/02/18 09:25 11/09/18 18:46 Tylenol FEEDTUBE 650 mg Q6H PRN Administration Fever >101 Lipase/Protease/Amylase 1 each 11/01/18 10:[address] 10,500 Unit FEEDTUBE PRN PRN For Clogged Feeding Tube Epoetin [place] 20,000 unit 11/05/18 10:21 11/09/18 12:15 Procrit SUB-Q 20,000 unit ALEJO PRN Administration hemodialysis Famotidine 20 mg 11/01/18 10:00 11/10/18 10:19 Pepcid PO 20 mg DAILY KIRSTEN Administration Heparin Sodium (Porcine) 5,000 unit 10/29/18 22:00 11/09/18 23:44 Heparin SUB-Q 5,000 unit Q8HR KIRSTEN Administration Norepinephrine 4 mg in 250 mls @ 7.5 mls/hr 10/30/18 01:00 11/09/18 23:46 Levophed Drip 4 Mg/Ns 250 Ml IV 4 mcg/min TITR KIRSTEN 15 mls/hr Administration Protocol 2 MCG/MIN Sodium Chloride 100 mls @ 999 mls/hr 11/09/18 08:48 Nacl 0.9% IV ALEJO PRN Hypotension Cefepime HCl 1 gm in 100 mls @ 200 mls/hr 11/09/18 18:00 11/09/18 17:57 Maxipime/Ns 1 Gm/100 Ml IV 200 mls/hr QPM KIRSTEN Administration Protocol Insulin Human Lispro 0 unit 10/30/18 10:00 11/10/18 06:33 Humalog SUB-Q 3 unit Q6HR KIRSTEN Administration Protocol Levetiracetam 500 mg 11/07/18 10:00 11/10/18 10:19 Keppra PO 500 mg BID KIRSTEN Administration Simple Syrup 15 ml 11/01/18 10:04 11/06/18 00:09 Simple Syrup FEEDTUBE 15 ml PRN PRN Administration Hypoglycemia Simple Syrup 30 ml 11/01/18 10:04 Simple Syrup FEEDTUBE PRN PRN Hypoglycemia Sodium Bicarbonate 325 mg 11/01/18 10:04 Sodium Bicarbonate FEEDTUBE PRN PRN For Clogged Feeding Tube
--- NOTE | 2018-11-10 12:13 | Progress Note ---
Assessment and Plan - Severe sepsis with septic shock with positive MRSA in tracheal aspirate On pressors and ivf iv antibiotic per ID - s/p PEA arrest continue cardiac monitoring with vent support - Right sided Pneumonia continue with iv antibiotic per ID - Hypotension Multifactorial On pressors - Acute hypoxemic respiratory failure continue with mechanical ventilation - Acute metabolic encephalopathy with lateral gaze on mechamical ventilation and treatment of multiple underlying factors - ESRD on HD nephrology following - Hypokalemia Trend, and continue to supplement. - Hypernatremia - corrected - s/p right BKA - Prostate cancer s/p s/p catheter functioning wll - DVT on Heparin - Severe protein calorie malnutrition Dietary consult - Prognosis : Very poor Subjective Date of service: 11/10/18 Principal diagnosis: sepsis, acute resp, failure. Interval history: Remains intubated and on vent Objective - Exam Narrative Exam: Constitutional: Very ill appearing. Intubated an on mechanical ventilation > 96 hrs Head: Normocephalic atraumatic Eyes: lateral gaze, Pupils are equal round and reactive to light Nose: No enlarged turbinates, no septal deviation. Mouth: Moist mucous membranes. Neck: Supple no thyromegaly. No bruit. No JVD Heart: Regular rate and rhythm, S1-S2 normal. No rubs murmurs or gallop Lungs: Clear to auscultation bilaterally. no rales or rhonchi Abdomen: Soft, nontender. Bowel sound are present. Extremities: No edema, no cyanosis, no clubbing. Neuro: intubated and on mechanical ventilation. None responsive. Skin: No rashes or hyperpigmented spots Musculoskeletal system: No joint pain or swelling Hematological: No petechia or subcutanous hemorrhages. Immunological: No multiple septic spots on the skin Lymphatic: No generalized lymphadenopathy Psychiatry:intubated and on mechanical ventilation - Constitutional Vitals: Vital Signs - 12hr 11/10/18 11/10/18 11/10/18 00:15 00:30 00:45 Temperature Pulse Rate 106 H 106 H 106 H Pulse Rate [ From Monitor] Respiratory 22 22 25 H Rate Blood Pressure 100/48 100/49 88/52 O2 Sat by Pulse 100 100 100 Oximetry 11/10/18 11/10/18 11/10/18 01:00 01:15 01:30 Temperature Pulse Rate 105 H 108 H 108 H Pulse Rate [ From Monitor] Respiratory 22 26 H 25 H Rate Blood Pressure 88/46 98/53 109/53 O2 Sat by Pulse 99 100 99 Oximetry 11/10/18 11/10/18 11/10/18 01:45 02:00 02:15 Temperature Pulse Rate 108 H 108 H 109 H Pulse Rate [ From Monitor] Respiratory 23 23 18 Rate Blood Pressure 117/52 106/49 100/55 O2 Sat by Pulse 99 100 100 Oximetry 11/10/18 11/10/18 11/10/18 02:30 02:45 03:00 Temperature Pulse Rate 109 H 108 H 110 H Pulse Rate [ From Monitor] Respiratory 21 23 17 Rate Blood Pressure 105/57 109/51 119/56 O2 Sat by Pulse 99 99 99 Oximetry 11/10/18 11/10/18 11/10/18 03:15 03:18 03:30 Temperature 101.3 F H Pulse Rate 110 H 112 H Pulse Rate [ From Monitor] Respiratory 25 H 26 H Rate Blood Pressure 105/49 119/51 O2 Sat by Pulse 99 99 Oximetry 11/10/18 11/10/18 11/10/18 03:45 04:00 04:15 Temperature Pulse Rate 114 H 112 H 113 H Pulse Rate [ 113 H From Monitor] Respiratory 30 H 25 H 29 H Rate Blood Pressure 130/55 107/51 114/50 O2 Sat by Pulse 99 99 99 Oximetry 11/10/18 11/10/18 11/10/18 04:30 04:45 05:00 Temperature Pulse Rate 113 H 113 H 114 H Pulse Rate [ From Monitor] Respiratory 25 H 26 H 24 Rate Blood Pressure 114/49 111/53 112/51 O2 Sat by Pulse 99 99 99 Oximetry 11/10/18 11/10/18 11/10/18 05:15 05:21 05:30 Temperature Pulse Rate 114 H 99 H 114 H Pulse Rate [ From Monitor] Respiratory 27 H 27 H Rate Blood Pressure 108/50 108/50 109/52 O2 Sat by Pulse 99 100 99 Oximetry 11/10/18 11/10/18 11/10/18 05:45 06:00 06:15 Temperature Pulse Rate 114 H 113 H 115 H Pulse Rate [ From Monitor] Respiratory 24 24 25 H Rate Blood Pressure 108/52 107/53 116/52 O2 Sat by Pulse 99 99 99 Oximetry 11/10/18 11/10/18 11/10/18 06:30 06:45 07:00 Temperature Pulse Rate 114 H 116 H 115 H Pulse Rate [ From Monitor] Respiratory 24 28 H 25 H Rate Blood Pressure 117/52 121/55 113/51 O2 Sat by Pulse 100 99 100 Oximetry 11/10/18 11/10/18 11/10/18 07:15 07:30 07:45 Temperature Pulse Rate 117 H 117 H 116 H Pulse Rate [ From Monitor] Respiratory 26 H 29 H 25 H Rate Blood Pressure 105/48 110/50 109/49 O2 Sat by Pulse 99 99 100 Oximetry 11/10/18 11/10/18 11/10/18 08:00 08:15 08:25 Temperature 100 F H Pulse Rate 117 H 116 H 117 H Pulse Rate [ From Monitor] Respiratory 27 H 25 H Rate Blood Pressure 119/52 117/53 117/53 O2 Sat by Pulse 99 99 100 Oximetry 11/10/18 11/10/18 11/10/18 08:29 08:30 08:32 Temperature Pulse Rate 117 H 118 H 116 H Pulse Rate [ From Monitor] Respiratory 36 H 36 H Rate Blood Pressure 124/56 124/56 124/56 O2 Sat by Pulse 100 100 100 Oximetry 11/10/18 11:37 Temperature Pulse Rate 117 H Pulse Rate [ From Monitor] Respiratory Rate Blood Pressure 102/52 O2 Sat by Pulse 97 Oximetry - Labs CBC & Chem 7: 11/10/18 04:34 11/10/18 04:34 Labs: Abnormal lab results 11/09/18 11/09/18 11/09/18 Range/Units 11:47 15:17 17:15 RBC (3.65-5.03) M/mm3 Hgb (11.8-15.2) gm/dl Hct (35.5-45.6) % MCV (84-94) fl MCH (28-32) pg Seg Neuts % (Manual) (40.0-70.0) % Lymphocytes % (Manual) (13.4-35.0) % Lymphocytes # (Manual) (1.2-5.4) K/mm3 POC ABG pO2 75 L (80-105) Sodium (137-145) mmol/L Potassium (3.6-5.0) mmol/L BUN (9-20) mg/dL Creatinine (0.8-1.5) mg/dL Glucose (75-100) mg/dL POC Glucose 226 H 202 H (70-105) Calcium (8.4-10.2) mg/dL Total Protein (6.3-8.2) g/dL Albumin (3.9-5) g/dL 11/10/18 11/10/18 11/10/18 Range/Units 00:04 04:34 04:34 RBC 2.36 L (3.65-5.03) M/mm3 Hgb 7.8 L (11.8-15.2) gm/dl Hct 24.1 L (35.5-45.6) % MCV 102 H (84-94) fl MCH 33 H (28-32) pg Seg Neuts % (Manual) 82.0 H (40.0-70.0) % Lymphocytes % (Manual) 6.0 L (13.4-35.0) % Lymphocytes # (Manual) 0.3 L (1.2-5.4) K/mm3 POC ABG pO2 (80-105) Sodium 136 L (137-145) mmol/L Potassium 3.2 L (3.6-5.0) mmol/L BUN 39 H (9-20) mg/dL Creatinine 2.0 H (0.8-1.5) mg/dL Glucose 152 H (75-100) mg/dL POC Glucose 197 H (70-105) Calcium 8.3 L (8.4-10.2) mg/dL Total Protein 6.0 L (6.3-8.2) g/dL Albumin 1.4 L (3.9-5) g/dL 11/10/18 11/10/18 Range/Units 05:12 12:01 RBC (3.65-5.03) M/mm3 Hgb (11.8-15.2) gm/dl Hct (35.5-45.6) % MCV (84-94) fl MCH (28-32) pg Seg Neuts % (Manual) (40.0-70.0) % Lymphocytes % (Manual) (13.4-35.0) % Lymphocytes # (Manual) (1.2-5.4) K/mm3 POC ABG pO2 (80-105) Sodium (137-145) mmol/L Potassium (3.6-5.0) mmol/L BUN (9-20) mg/dL Creatinine (0.8-1.5) mg/dL Glucose (75-100) mg/dL POC Glucose 163 H 139 H (70-105) Calcium (8.4-10.2) mg/dL Total Protein (6.3-8.2) g/dL Albumin (3.9-5) g/dL
--- NOTE | 2018-11-10 13:26 | Progress Note ---
Assessment and Plan -s/p PEA arrest -Severe sepsis with septic shock -Fevers, Tracheal aspirate positive for MRSA -Acute hypoxic respiratory failure on MVS -Acute encephalopathy( toxic, metabolic) -Severe protein calorie malnutrition -Hyperkalemia( resolved) -ESRD on HD, clotted graft s/p femoral HD catheter -Hyperosmolar hyperglycemic state- resolved -Hypotension, multifactorial, -Hypernatremia, resolved -PVD s/p right BKA -Prostate cancer s/p suprapubic catheter - volume bolus for hypotension - continue to wean vasopressors for target MAP > 65 mmHg - Continue with MVS - follow EEG report - neurology evaluation is appropriate - continue Lung protective strategies - VAP bundle addressed. - Supplemental oxygen, wean for O2 sats>90% - Daily SBTs as tolerated - VTE prophylaxis( heparin) - Stress ulcer prophylaxis( Famotidine) - High dose sliding scale insulin with accuchecks - Tube feedings with aspiration precautions - Glycemic control, target blood glucose of 140-180mg/dL - Free water flushes - Continue wound care by wound care team - Supportive [employer] - ABG and CXR in am CONDITION: CRITICAL PROGNOSIS: GUARDED CODE STATUS: DNAR The high probability of a clinically significant, sudden or life-threatening deterioration of the [respiratory, cardiovascular, neurology, renal ] system(s) required my full and direct attention, intervention and personal management. The aggregate critical care time was [31] minutes without overlap. Time includes spent on; [x] Data Review and interpretation [x] Patient assessment and monitoring of vital signs [x] Documentation [x] Medication orders and management Subjective Date of service: 11/10/18 Principal diagnosis: sepsis, acute resp, failure. Interval history: Patient is seen today for: Acute hypoxemic respiratory failure on MVS; Severe sepsis with septic shock; acute encephaloapthy; Seen and examined at bedside; 24hour events reviewed; nursing and respiratory care staff consulted; No fevers overnight, remains on norepinephrine for hemodynamic support Remains unresponsive, on mechanical ventilatory support, no dys-synchrony Resting peacefully in bed; no emesis or overt aspiration; AMS is persistent; BP's labile and to receive saline bolus; no seizures Objective Vital Signs - 12hr 11/10/18 11/10/18 11/10/18 01:30 01:45 02:00 Temperature Pulse Rate 108 H 108 H 108 H Pulse Rate [ From Monitor] Respiratory 25 H 23 23 Rate Blood Pressure 109/53 117/52 106/49 O2 Sat by Pulse 99 99 100 Oximetry 11/10/18 11/10/18 11/10/18 02:15 02:30 02:45 Temperature Pulse Rate 109 H 109 H 108 H Pulse Rate [ From Monitor] Respiratory 18 21 23 Rate Blood Pressure 100/55 105/57 109/51 O2 Sat by Pulse 100 99 99 Oximetry 11/10/18 11/10/18 11/10/18 03:00 03:15 03:18 Temperature 101.3 F H Pulse Rate 110 H 110 H Pulse Rate [ From Monitor] Respiratory 17 25 H Rate Blood Pressure 119/56 105/49 O2 Sat by Pulse 99 99 Oximetry 11/10/18 11/10/18 11/10/18 03:30 03:45 04:00 Temperature Pulse Rate 112 H 114 H 112 H Pulse Rate [ 113 H From Monitor] Respiratory 26 H 30 H 25 H Rate Blood Pressure 119/51 130/55 107/51 O2 Sat by Pulse 99 99 99 Oximetry 11/10/18 11/10/18 11/10/18 04:15 04:30 04:45 Temperature Pulse Rate 113 H 113 H 113 H Pulse Rate [ From Monitor] Respiratory 29 H 25 H 26 H Rate Blood Pressure 114/50 114/49 111/53 O2 Sat by Pulse 99 99 99 Oximetry 11/10/18 11/10/18 11/10/18 05:00 05:15 05:21 Temperature Pulse Rate 114 H 114 H 99 H Pulse Rate [ From Monitor] Respiratory 24 27 H Rate Blood Pressure 112/51 108/50 108/50 O2 Sat by Pulse 99 99 100 Oximetry 11/10/18 11/10/18 11/10/18 05:30 05:45 06:00 Temperature Pulse Rate 114 H 114 H 113 H Pulse Rate [ From Monitor] Respiratory 27 H 24 24 Rate Blood Pressure 109/52 108/52 107/53 O2 Sat by Pulse 99 99 99 Oximetry 11/10/18 11/10/18 11/10/18 06:15 06:30 06:45 Temperature Pulse Rate 115 H 114 H 116 H Pulse Rate [ From Monitor] Respiratory 25 H 24 28 H Rate Blood Pressure 116/52 117/52 121/55 O2 Sat by Pulse 99 100 99 Oximetry 11/10/18 11/10/18 11/10/18 07:00 07:15 07:30 Temperature Pulse Rate 115 H 117 H 117 H Pulse Rate [ From Monitor] Respiratory 25 H 26 H 29 H Rate Blood Pressure 113/51 105/48 110/50 O2 Sat by Pulse 100 99 99 Oximetry 11/10/18 11/10/18 11/10/18 07:45 08:00 08:15 Temperature 100 F H Pulse Rate 116 H 117 H 116 H Pulse Rate [ From Monitor] Respiratory 25 H 27 H 25 H Rate Blood Pressure 109/49 119/52 117/53 O2 Sat by Pulse 100 99 99 Oximetry 11/10/18 11/10/18 11/10/18 08:25 08:29 08:30 Temperature Pulse Rate 117 H 117 H 118 H Pulse Rate [ From Monitor] Respiratory 36 H 36 H Rate Blood Pressure 117/53 124/56 124/56 O2 Sat by Pulse 100 100 100 Oximetry 11/10/18 11/10/18 11/10/18 08:32 08:45 09:00 Temperature Pulse Rate 116 H 115 H 116 H Pulse Rate [ From Monitor] Respiratory 26 H 27 H Rate Blood Pressure 124/56 103/47 95/46 O2 Sat by Pulse 100 98 99 Oximetry 11/10/18 11/10/18 11/10/18 09:15 09:30 09:45 Temperature Pulse Rate 118 H 117 H 115 H Pulse Rate [ From Monitor] Respiratory 30 H 26 H 25 H Rate Blood Pressure 89/47 86/50 74/47 O2 Sat by Pulse 99 99 99 Oximetry 11/10/18 11/10/18 11/10/18 10:00 10:15 10:30 Temperature Pulse Rate 115 H 116 H 120 H Pulse Rate [ From Monitor] Respiratory 24 26 H 28 H Rate Blood Pressure 106/51 110/49 99/57 O2 Sat by Pulse 99 99 96 Oximetry 11/10/18 11/10/18 11/10/18 10:45 11:00 11:15 Temperature Pulse Rate 117 H 116 H 116 H Pulse Rate [ From Monitor] Respiratory 26 H 26 H 25 H Rate Blood Pressure 98/52 93/51 99/50 O2 Sat by Pulse 98 97 97 Oximetry 11/10/18 11/10/18 11/10/18 11:30 11:37 11:45 Temperature Pulse Rate 116 H 117 H 119 H Pulse Rate [ From Monitor] Respiratory 28 H 29 H Rate Blood Pressure 102/52 102/52 108/52 O2 Sat by Pulse 97 97 97 Oximetry 11/10/18 11/10/18 12:00 12:10 Temperature 99.9 F H Pulse Rate 123 H Pulse Rate [ From Monitor] Respiratory 29 H Rate Blood Pressure 101/54 O2 Sat by Pulse 97 99 Oximetry CBC and BMP: 11/16/18 05:45 11/16/18 05:45 ABG, PT/INR, D-dimer: ABG POC ABG pH 7.389 (7.35-7.45) 11/09/18 15:17 POC ABG pCO2 41.8 (35-45) 11/09/18 15:17 POC ABG pO2 75 (80-105) L 11/09/18 15:17 POC ABG HCO3 25.2 (22-26 mml/L) 11/09/18 15:17 POC ABG Total CO2 26 (23-27mmol/L) 11/09/18 15:17 POC ABG O2 Sat 95 11/09/18 15:17 PT/INR, D-dimer PT 15.8 Sec. (12.2-14.9) H 11/08/18 07:09 INR 1.18 (0.87-1.13) H 11/08/18 07:09 Abnormal lab findings: Abnormal Labs 10/29/18 10/29/18 10/29/18 17:13 17:13 17:13 RBC 3.62 L Hgb Hct MCV 102 H MCH 34 H RDW 19.6 H Plt Count Lymph % (Auto) [place] % (Auto) 7.8 H Lymph # Seg Neutrophils % 71.2 H Seg Neuts % (Manual) Lymphocytes % (Manual) Monocytes % (Manual) Seg Neutrophils # Lymphocytes # (Manual) PT INR POC ABG pH POC ABG pCO2 POC ABG pO2 Sodium 164 H* Potassium 6.2 H* Chloride 127.5 H Carbon Dioxide BUN 178 H Creatinine 4.2 H Glucose 131 H POC Glucose Calcium 10.7 H C-Reactive Protein Total Protein 9.5 H Albumin 2.6 L TSH 5.310 H Urine pH Urine WBC (Auto) Vancomycin Trough 10/29/18 10/30/18 10/30/18 23:57 00:06 04:35 RBC Hgb Hct MCV MCH RDW Plt Count Lymph % (Auto) [place] % (Auto) Lymph # Seg Neutrophils % Seg Neuts % (Manual) Lymphocytes % (Manual) Monocytes % (Manual) Seg Neutrophils # Lymphocytes # (Manual) PT INR POC ABG pH 7.488 H POC ABG pCO2 32.1 L 34.9 L POC ABG pO2 144 H Sodium Potassium Chloride Carbon Dioxide BUN Creatinine Glucose POC Glucose 131 H Calcium C-Reactive Protein Total Protein Albumin TSH Urine pH Urine WBC (Auto) Vancomycin Trough 10/30/18 10/30/18 10/30/18 05:13 08:54 08:54 RBC 3.56 L Hgb 11.7 L Hct MCV 102 H MCH 33 H RDW 19.2 H Plt Count Lymph % (Auto) [place] % (Auto) Lymph # Seg Neutrophils % Seg Neuts % (Manual) Lymphocytes % (Manual) Monocytes % (Manual) Seg Neutrophils # Lymphocytes # (Manual) PT INR POC ABG pH POC ABG pCO2 POC ABG pO2 Sodium Potassium Chloride Carbon Dioxide BUN Creatinine Glucose POC Glucose 316 H Calcium C-Reactive Protein 5.20 H Total Protein Albumin 2.2 L TSH Urine pH Urine WBC (Auto) Vancomycin Trough 10/30/18 10/30/18 10/30/18 08:59 12:03 18:30 RBC Hgb Hct MCV MCH RDW Plt Count Lymph % (Auto) [place] % (Auto) Lymph # Seg Neutrophils % Seg Neuts % (Manual) Lymphocytes % (Manual) Monocytes % (Manual) Seg Neutrophils # Lymphocytes # (Manual) PT INR POC ABG pH POC ABG pCO2 POC ABG pO2 Sodium 146 H D Potassium Chloride Carbon Dioxide BUN 86 H Creatinine 2.7 H Glucose 262 H POC Glucose 232 H 57 L Calcium C-Reactive Protein Total Protein Albumin TSH Urine pH Urine WBC (Auto) Vancomycin Trough 10/30/18 10/30/18 10/30/18 18:39 19:07 19:42 RBC Hgb Hct MCV MCH RDW Plt Count Lymph % (Auto) [place] % (Auto) Lymph # Seg Neutrophils % Seg Neuts % (Manual) Lymphocytes % (Manual) Monocytes % (Manual) Seg Neutrophils # Lymphocytes # (Manual) PT INR POC ABG pH POC ABG pCO2 POC ABG pO2 Sodium Potassium Chloride Carbon Dioxide BUN Creatinine Glucose POC Glucose < 40 L 51 L Calcium C-Reactive Protein Total Protein Albumin TSH Urine pH 8.0 H Urine WBC (Auto) > 182.0 H Vancomycin Trough 10/30/18 10/30/18 10/30/18 19:51 23:13 23:20 RBC Hgb Hct MCV MCH RDW Plt Count Lymph % (Auto) [place] % (Auto) Lymph # Seg Neutrophils % Seg Neuts % (Manual) Lymphocytes % (Manual) Monocytes % (Manual) Seg Neutrophils # Lymphocytes # (Manual) PT INR POC ABG pH POC ABG pCO2 POC ABG pO2 Sodium Potassium Chloride 108.5 H Carbon Dioxide 21 L BUN 96 H Creatinine 3.0 H Glucose 865 H* 150 H POC Glucose 152 H Calcium C-Reactive Protein Total Protein Albumin TSH Urine pH Urine WBC (Auto) Vancomycin Trough 10/30/18 10/31/18 10/31/18 23:40 04:43 04:43 RBC Hgb Hct MCV 100 H MCH 33 H RDW 18.1 H Plt Count Lymph % (Auto) [place] % (Auto) Lymph # Seg Neutrophils % Seg Neuts % (Manual) Lymphocytes % (Manual) 4.0 L Monocytes % (Manual) Seg Neutrophils # Lymphocytes # (Manual) 0.3 L PT INR POC ABG pH POC ABG pCO2 POC ABG pO2 Sodium Potassium Chloride Carbon Dioxide 19 L BUN 98 H Creatinine 3.2 H Glucose 184 H POC Glucose 145 H Calcium C-Reactive Protein Total Protein Albumin TSH Urine pH Urine WBC (Auto) Vancomycin Trough 10/31/18 10/31/18 10/31/18 05:44 11:44 13:19 RBC Hgb Hct MCV MCH RDW Plt Count Lymph % (Auto) [place] % (Auto) Lymph # Seg Neutrophils % Seg Neuts % (Manual) Lymphocytes % (Manual) Monocytes % (Manual) Seg Neutrophils # Lymphocytes # (Manual) PT INR POC ABG pH POC ABG pCO2 POC ABG pO2 64 L Sodium Potassium Chloride Carbon Dioxide BUN Creatinine Glucose POC Glucose 142 H 196 H Calcium C-Reactive Protein Total Protein Albumin TSH Urine pH Urine WBC (Auto) Vancomycin Trough 10/31/18 11/01/18 11/01/18 17:36 04:07 04:07 RBC 3.40 L Hgb 11.2 L Hct 33.6 L MCV 99 H MCH 33 H RDW 17.5 H Plt Count Lymph % (Auto) [place] % (Auto) Lymph # Seg Neutrophils % Seg Neuts % (Manual) 80.0 H Lymphocytes % (Manual) 4.0 L Monocytes % (Manual) Seg Neutrophils # Lymphocytes # (Manual) 0.3 L PT INR POC ABG pH POC ABG pCO2 POC ABG pO2 Sodium Potassium Chloride Carbon Dioxide 19 L BUN 108 H Creatinine 3.9 H Glucose 138 H POC Glucose 174 H Calcium 7.9 L C-Reactive Protein Total Protein Albumin TSH Urine pH Urine WBC (Auto) Vancomycin Trough 11/01/18 11/01/18 11/01/18 05:24 05:36 13:09 RBC Hgb Hct MCV MCH RDW Plt Count Lymph % (Auto) [place] % (Auto) Lymph # Seg Neutrophils % Seg Neuts % (Manual) Lymphocytes % (Manual) Monocytes % (Manual) Seg Neutrophils # Lymphocytes # (Manual) PT INR POC ABG pH POC ABG pCO2 POC ABG pO2 65 L Sodium Potassium Chloride Carbon Dioxide BUN Creatinine Glucose POC Glucose 153 H 249 H Calcium C-Reactive Protein Total Protein Albumin TSH Urine pH Urine WBC (Auto) Vancomycin Trough 11/01/18 11/02/18 11/02/18 18:11 05:04 07:17 RBC 3.08 L Hgb 10.1 L Hct 30.1 L MCV 98 H MCH 33 H RDW 16.7 H Plt Count Lymph % (Auto) [place] % (Auto) Lymph # Seg Neutrophils % Seg Neuts % (Manual) 92.0 H Lymphocytes % (Manual) 3.0 L Monocytes % (Manual) Seg Neutrophils # Lymphocytes # (Manual) 0.2 L PT INR POC ABG pH POC ABG pCO2 POC ABG pO2 Sodium Potassium Chloride Carbon Dioxide BUN Creatinine Glucose POC Glucose 175 H 118 H Calcium C-Reactive Protein Total Protein Albumin TSH Urine pH Urine WBC (Auto) Vancomycin Trough 11/02/18 11/02/18 11/02/18 07:54 09:32 12:28 RBC Hgb Hct MCV MCH RDW Plt Count Lymph % (Auto) [place] % (Auto) Lymph # Seg Neutrophils % Seg Neuts % (Manual) Lymphocytes % (Manual) Monocytes % (Manual) Seg Neutrophils # Lymphocytes # (Manual) PT INR POC ABG pH 7.514 H POC ABG pCO2 POC ABG pO2 70 L Sodium 135 L Potassium Chloride Carbon Dioxide BUN 48 H Creatinine 2.2 H Glucose 170 H POC Glucose 242 H Calcium 7.4 L C-Reactive Protein Total Protein Albumin TSH Urine pH Urine WBC (Auto) Vancomycin Trough 11/02/18 11/03/18 11/03/18 23:32 04:34 05:10 RBC 2.87 L Hgb 9.4 L Hct 28.5 L MCV 99 H MCH 33 H RDW 16.7 H Plt Count Lymph % (Auto) [place] % (Auto) Lymph # Seg Neutrophils % Seg Neuts % (Manual) 91.0 H Lymphocytes % (Manual) 4.0 L Monocytes % (Manual) Seg Neutrophils # Lymphocytes # (Manual) 0.3 L PT INR POC ABG pH POC ABG pCO2 33.2 L POC ABG pO2 76 L Sodium Potassium Chloride Carbon Dioxide BUN Creatinine Glucose POC Glucose 177 H Calcium C-Reactive Protein Total Protein Albumin TSH Urine pH Urine WBC (Auto) Vancomycin Trough 11/03/18 11/03/18 11/03/18 06:04 12:26 18:43 RBC Hgb Hct MCV MCH RDW Plt Count Lymph % (Auto) [place] % (Auto) Lymph # Seg Neutrophils % Seg Neuts % (Manual) Lymphocytes % (Manual) Monocytes % (Manual) Seg Neutrophils # Lymphocytes # (Manual) PT INR POC ABG pH POC ABG pCO2 POC ABG pO2 Sodium Potassium Chloride Carbon Dioxide BUN Creatinine Glucose POC Glucose 168 H 196 H 153 H Calcium C-Reactive Protein Total Protein Albumin TSH Urine pH Urine WBC (Auto) Vancomycin Trough 11/03/18 11/04/18 11/04/18 23:34 03:50 05:05 RBC 2.74 L Hgb 9.1 L Hct 27.3 L MCV 99 H MCH 33 H RDW 16.5 H Plt Count Lymph % (Auto) [place] % (Auto) Lymph # Seg Neutrophils % Seg Neuts % (Manual) 87.0 H Lymphocytes % (Manual) 7.0 L Monocytes % (Manual) Seg Neutrophils # Lymphocytes # (Manual) 0.5 L PT INR POC ABG pH POC ABG pCO2 31.7 L POC ABG pO2 74 L Sodium Potassium Chloride Carbon Dioxide BUN Creatinine Glucose POC Glucose 213 H Calcium C-Reactive Protein Total Protein Albumin TSH Urine pH Urine WBC (Auto) Vancomycin Trough 11/04/18 11/04/18 11/04/18 05:05 05:23 12:26 RBC Hgb Hct MCV MCH RDW Plt Count Lymph % (Auto) [place] % (Auto) Lymph # Seg Neutrophils % Seg Neuts % (Manual) Lymphocytes % (Manual) Monocytes % (Manual) Seg Neutrophils # Lymphocytes # (Manual) PT INR POC ABG pH POC ABG pCO2 POC ABG pO2 Sodium Potassium Chloride Carbon Dioxide BUN 84 H Creatinine 3.3 H Glucose 177 H POC Glucose 196 H 182 H Calcium 7.6 L C-Reactive Protein Total Protein Albumin TSH Urine pH Urine WBC (Auto) Vancomycin Trough 11/04/18 11/04/18 11/05/18 13:25 22:36 05:07 RBC Hgb Hct MCV MCH RDW Plt Count Lymph % (Auto) [place] % (Auto) Lymph # Seg Neutrophils % Seg Neuts % (Manual) Lymphocytes % (Manual) Monocytes % (Manual) Seg Neutrophils # Lymphocytes # (Manual) PT INR POC ABG pH POC ABG pCO2 30.1 L POC ABG pO2 63 L Sodium Potassium Chloride Carbon Dioxide BUN Creatinine Glucose POC Glucose 159 H Calcium C-Reactive Protein Total Protein Albumin TSH Urine pH Urine WBC (Auto) Vancomycin Trough 4.4 L 11/05/18 11/05/18 11/05/18 05:42 06:36 12:54 RBC Hgb Hct MCV MCH RDW Plt Count Lymph % (Auto) [place] % (Auto) Lymph # Seg Neutrophils % Seg Neuts % (Manual) Lymphocytes % (Manual) Monocytes % (Manual) Seg Neutrophils # Lymphocytes # (Manual) PT INR POC ABG pH POC ABG pCO2 POC ABG pO2 Sodium 134 L Potassium 3.4 L Chloride Carbon Dioxide 18 L BUN 93 H Creatinine 3.7 H Glucose 230 H POC Glucose 233 H 237 H Calcium 7.8 L C-Reactive Protein Total Protein Albumin TSH Urine pH Urine WBC (Auto) Vancomycin Trough 11/05/18 11/05/18 11/06/18 19:36 23:35 01:59 RBC Hgb Hct MCV MCH RDW Plt Count Lymph % (Auto) [place] % (Auto) Lymph # Seg Neutrophils % Seg Neuts % (Manual) Lymphocytes % (Manual) Monocytes % (Manual) Seg Neutrophils # Lymphocytes # (Manual) PT INR POC ABG pH POC ABG pCO2 POC ABG pO2 Sodium Potassium Chloride Carbon Dioxide BUN Creatinine Glucose POC Glucose 174 H 56 L 112 H Calcium C-Reactive Protein Total Protein Albumin TSH Urine pH Urine WBC (Auto) Vancomycin Trough 11/06/18 11/06/18 11/06/18 04:33 05:06 07:24 RBC 2.83 L Hgb 9.3 L Hct 27.9 L MCV 99 H MCH 33 H RDW 15.9 H Plt Count 133 L Lymph % (Auto) [place] % (Auto) Lymph # Seg Neutrophils % Seg Neuts % (Manual) 94.0 H Lymphocytes % (Manual) 4.0 L Monocytes % (Manual) Seg Neutrophils # Lymphocytes # (Manual) 0.3 L PT INR POC ABG pH POC ABG pCO2 32.4 L POC ABG pO2 73 L Sodium Potassium Chloride Carbon Dioxide BUN Creatinine Glucose POC Glucose 139 H Calcium C-Reactive Protein Total Protein Albumin TSH Urine pH Urine WBC (Auto) Vancomycin Trough 11/06/18 11/06/18 11/06/18 07:24 11:52 17:16 RBC Hgb Hct MCV MCH RDW Plt Count Lymph % (Auto) [place] % (Auto) Lymph # Seg Neutrophils % Seg Neuts % (Manual) Lymphocytes % (Manual) Monocytes % (Manual) Seg Neutrophils # Lymphocytes # (Manual) PT INR POC ABG pH POC ABG pCO2 POC ABG pO2 Sodium 136 L Potassium 3.2 L Chloride Carbon Dioxide BUN 59 H Creatinine 2.3 H Glucose 137 H POC Glucose 212 H 194 H Calcium 7.4 L C-Reactive Protein Total Protein Albumin TSH Urine pH Urine WBC (Auto) Vancomycin Trough 11/07/18 11/07/18 11/07/18 00:44 05:56 06:12 RBC 2.64 L Hgb 8.7 L Hct 26.3 L MCV 100 H MCH 33 H RDW 15.7 H Plt Count Lymph % (Auto) 4.6 L [place] % (Auto) Lymph # 0.4 L Seg Neutrophils % 89.4 H Seg Neuts % (Manual) Lymphocytes % (Manual) Monocytes % (Manual) Seg Neutrophils # 8.3 H Lymphocytes # (Manual) PT INR POC ABG pH POC ABG pCO2 POC ABG pO2 Sodium Potassium Chloride Carbon Dioxide BUN Creatinine Glucose POC Glucose 193 H 145 H Calcium C-Reactive Protein Total Protein Albumin TSH Urine pH Urine WBC (Auto) Vancomycin Trough 11/07/18 11/07/18 11/07/18 06:12 12:20 17:27 RBC Hgb Hct MCV MCH RDW Plt Count Lymph % (Auto) [place] % (Auto) Lymph # Seg Neutrophils % Seg Neuts % (Manual) Lymphocytes % (Manual) Monocytes % (Manual) Seg Neutrophils # Lymphocytes # (Manual) PT INR POC ABG pH POC ABG pCO2 POC ABG pO2 Sodium Potassium Chloride Carbon Dioxide BUN 74 H Creatinine 2.8 H Glucose 143 H POC Glucose 207 H 170 H Calcium 7.7 L C-Reactive Protein Total Protein Albumin TSH Urine pH Urine WBC (Auto) Vancomycin Trough 11/07/18 11/08/18 11/08/18 23:40 06:04 07:09 RBC Hgb Hct MCV MCH RDW Plt Count Lymph % (Auto) [place] % (Auto) Lymph # Seg Neutrophils % Seg Neuts % (Manual) Lymphocytes % (Manual) Monocytes % (Manual) Seg Neutrophils # Lymphocytes # (Manual) PT 15.8 H INR 1.18 H POC ABG pH POC ABG pCO2 POC ABG pO2 Sodium Potassium Chloride Carbon Dioxide BUN Creatinine Glucose POC Glucose 188 H 170 H Calcium C-Reactive Protein Total Protein Albumin TSH Urine pH Urine WBC (Auto) Vancomycin Trough 11/08/18 11/08/18 11/08/18 11:21 18:29 23:10 RBC Hgb Hct MCV MCH RDW Plt Count Lymph % (Auto) [place] % (Auto) Lymph # Seg Neutrophils % Seg Neuts % (Manual) Lymphocytes % (Manual) Monocytes % (Manual) Seg Neutrophils # Lymphocytes # (Manual) PT INR POC ABG pH POC ABG pCO2 POC ABG pO2 Sodium Potassium Chloride Carbon Dioxide BUN Creatinine Glucose POC Glucose 191 H 224 H 197 H Calcium C-Reactive Protein Total Protein Albumin TSH Urine pH Urine WBC (Auto) Vancomycin Trough 11/09/18 11/09/18 11/09/18 04:59 07:35 07:35 RBC 2.51 L Hgb 8.3 L Hct 25.3 L MCV 101 H MCH 33 H RDW Plt Count Lymph % (Auto) [place] % (Auto) Lymph # Seg Neutrophils % Seg Neuts % (Manual) 79.0 H Lymphocytes % (Manual) 8.0 L Monocytes % (Manual) 9.0 H Seg Neutrophils # Lymphocytes # (Manual) 0.6 L PT INR POC ABG pH POC ABG pCO2 POC ABG pO2 Sodium 133 L Potassium 3.5 L Chloride Carbon Dioxide BUN 54 H Creatinine 2.4 H Glucose 166 H POC Glucose 173 H Calcium 8.0 L C-Reactive Protein Total Protein Albumin TSH Urine pH Urine WBC (Auto) Vancomycin Trough 11/09/18 11/09/18 11/09/18 11:47 15:17 17:15 RBC Hgb Hct MCV MCH RDW Plt Count Lymph % (Auto) [place] % (Auto) Lymph # Seg Neutrophils % Seg Neuts % (Manual) Lymphocytes % (Manual) Monocytes % (Manual) Seg Neutrophils # Lymphocytes # (Manual) PT INR POC ABG pH POC ABG pCO2 POC ABG pO2 75 L Sodium Potassium Chloride Carbon Dioxide BUN Creatinine Glucose POC Glucose 226 H 202 H Calcium C-Reactive Protein Total Protein Albumin TSH Urine pH Urine WBC (Auto) Vancomycin Trough 11/10/18 11/10/18 11/10/18 00:04 04:34 04:34 RBC 2.36 L Hgb 7.8 L Hct 24.1 L MCV 102 H MCH 33 H RDW Plt Count Lymph % (Auto) [place] % (Auto) Lymph # Seg Neutrophils % Seg Neuts % (Manual) 82.0 H Lymphocytes % (Manual) 6.0 L Monocytes % (Manual) Seg Neutrophils # Lymphocytes # (Manual) 0.3 L PT INR POC ABG pH POC ABG pCO2 POC ABG pO2 Sodium 136 L Potassium 3.2 L Chloride Carbon Dioxide BUN 39 H Creatinine 2.0 H Glucose 152 H POC Glucose 197 H Calcium 8.3 L C-Reactive Protein Total Protein 6.0 L Albumin 1.4 L TSH Urine pH Urine WBC (Auto) Vancomycin Trough 11/10/18 11/10/18 05:12 12:01 RBC Hgb Hct MCV MCH RDW Plt Count Lymph % (Auto) [place] % (Auto) Lymph # Seg Neutrophils % Seg Neuts % (Manual) Lymphocytes % (Manual) Monocytes % (Manual) Seg Neutrophils # Lymphocytes # (Manual) PT INR POC ABG pH POC ABG pCO2 POC ABG pO2 Sodium Potassium Chloride Carbon Dioxide BUN Creatinine Glucose POC Glucose 163 H 139 H Calcium C-Reactive Protein Total Protein Albumin TSH Urine pH Urine WBC (Auto) Vancomycin Trough
[2018-11-10] MEDS: HEPARIN SUB-Q SCH ×2 (14:13→22:01)
[2018-11-10] MEDS: LEVOPHED DRIP 4 MG/NS 250 ML 4 MG/250 ML BAG IV SCH ×2 (14:13→23:56)
[2018-11-10] MEDS: MAXIPIME/NS 1 GM/100 ML 1 GM/100 ML BAG IV SCH (18:02)
[2018-11-11] MEDS: HumaLOG SUB-Q SCH ×3 (06:47→18:08)
[2018-11-11] MEDS: HEPARIN SUB-Q SCH ×3 (06:50→21:18)
[2018-11-11 06:55] LABS: Hematocrit 22.6 % (35.5-45.6); Hemoglobin 7.6 gm/dl (11.8-15.2); Mean Corpuscular HGB Conc 34 % (32-34); Mean Corpuscular Volume 100 fl (84-94); Platelet Count 259 K/mm3 (140-440); Red Blood Count 2.27 M/mm3 (3.65-5.03); Red Cell Distribution Width 14.5 % (13.2-15.2)
[2018-11-11 07:22] LABS: Albumin 1.4 g/dL (3.9-5); Calcium 7.7 mg/dL (8.4-10.2)
[2018-11-11] MEDS: LEVOPHED DRIP 4 MG/NS 250 ML 4 MG/250 ML BAG IV SCH (08:00)
[2018-11-11 08:40] LABS: Basophils % (Auto) 0.3 % (0.0-1.8); Eosinophils % (Auto) 0.9 % (0.0-4.3); Lymphocytes # (Auto) 0.6 K/mm3 (1.2-5.4); Lymphocytes % (Auto) 10.7 % (13.4-35.0); Monocytes # (Auto) 0.4 K/mm3 (0.0-0.8); Monocytes % (Auto) 7.1 % (0.0-7.3)
[2018-11-11] MEDS ORDERED: POTASSIUM CHLORIDE FEEDTUBE NR (09:35)
[2018-11-11] MEDS: PEPCID PO SCH (09:53)
[2018-11-11] MEDS: KEPPRA PO SCH ×2 (09:53→21:17)
[2018-11-11 10:44] LABS: Basophils % (Manual) 0 % (0.0-1.8); Total Cells Counted 100
[2018-11-11 10:46] LABS: Hypochromasia Few; Large Platelets Few; Platelet Estimate Consistent w Auto; Target Cells Few
--- NOTE | 2018-11-11 12:13 | Progress Note ---
Assessment and Plan s/p PEA arrest Severe sepsis with septic shock Fevers, Tracheal aspirate positive for MRSA Acute hypoxic respiratory failure on MVS Acute encephalopathy( toxic, metabolic) Severe protein calorie malnutrition Hyperkalemia( resolved) ESRD on HD, clotted graft femoral HD catheter Hyperosmolar hyperglycemic state( improving) Hypotension, multifactorial, ?sepsis, dehydration Hypernatremia, resolved PVD s/p right BKA Prostate cancer s/p suprapubic catheter - volume bolus for hypotension - continue to wean vasopressors for target MAP > 65 mmHg - Continue with MVS - follow EEG report - neurology evaluation is appropriate - continue Lung protective strategies - VAP bundle addressed. - Supplemental oxygen, wean for O2 sats>90% - Daily SBTs as tolerated - VTE prophylaxis( heparin) - Stress ulcer prophylaxis( Famotidine) - High dose sliding scale insulin with accuchecks - Tube feedings with aspiration precautions - Glycemic control, target blood glucose of 140-180mg/dL - Free water flushes - Continue wound care by wound care team - Supportive HD - Wean vasopressor support for MAP>65 - Volume resuscitation - ABG and CXR in am - Serial BMP to monitor sodium levels - Sputum positive for MRSA, CONDITION: CRITICAL PROGNOSIS: GUARDED CODE STATUS: DNAR DNAR per daughters wishes, yesterday bith signed. Goals of care to be determined The high probability of a clinically significant, sudden or life-threatening deterioration of the [cardiac, neurology] system(s) required my full and direct attention, intervention and personal management. The aggregate critical care time was [36] minutes without overlap. Time includes spent on; [x] Data Review and interpretation [x] Patient assessment and monitoring of vital signs [x] Documentation [x] Medication orders and management Subjective Date of service: 11/11/18 Principal diagnosis: Acute hypoxemic resp failure; Severe sepsis with shock;acute encephaloapthy Interval history: Patient is seen today for: Acute hypoxemic respiratory failure on MVS; Severe sepsis with septic shock; acute encephaloapthy Seen and examined at bedside; 24hour events reviewed; nursing and respiratory care staff consulted; no adverse overnight events reported to me; resting peacefully in bed; remains on MVS; no emesis or overt aspiration; AMS is persistent; BP's labile and to receive saline bolus; no seizures Objective Vital Signs - 12hr 11/11/18 11/11/18 11/11/18 00:15 00:30 00:45 Pulse Rate 99 H 98 H 98 H Pulse Rate [ From Monitor] Respiratory 25 H 24 30 H Rate Blood Pressure 119/61 119/63 121/60 O2 Sat by Pulse 100 100 100 Oximetry 11/11/18 11/11/18 11/11/18 01:00 01:15 01:30 Pulse Rate 99 H 101 H 102 H Pulse Rate [ From Monitor] Respiratory 22 27 H 28 H Rate Blood Pressure 118/63 120/63 119/60 O2 Sat by Pulse 100 100 100 Oximetry 11/11/18 11/11/18 11/11/18 01:45 02:00 02:15 Pulse Rate 102 H 102 H 102 H Pulse Rate [ From Monitor] Respiratory 33 H 21 34 H Rate Blood Pressure 126/65 122/63 113/62 O2 Sat by Pulse 100 100 100 Oximetry 11/11/18 11/11/18 11/11/18 02:30 02:45 03:00 Pulse Rate 100 H 102 H 101 H Pulse Rate [ From Monitor] Respiratory 26 H 29 H 26 H Rate Blood Pressure 114/58 122/62 102/58 O2 Sat by Pulse 100 100 100 Oximetry 11/11/18 11/11/18 11/11/18 03:15 03:30 03:45 Pulse Rate 102 H 101 H 104 H Pulse Rate [ From Monitor] Respiratory 32 H 33 H 16 Rate Blood Pressure 133/64 115/57 137/70 O2 Sat by Pulse 100 100 100 Oximetry 11/11/18 11/11/18 11/11/18 04:00 04:15 04:30 Pulse Rate 100 H 100 H 99 H Pulse Rate [ 100 H From Monitor] Respiratory 24 31 H 28 H Rate Blood Pressure 113/56 110/56 101/52 O2 Sat by Pulse 100 100 100 Oximetry 11/11/18 11/11/18 11/11/18 04:45 05:00 05:15 Pulse Rate 100 H 99 H 98 H Pulse Rate [ From Monitor] Respiratory 30 H 30 H 24 Rate Blood Pressure 108/53 101/56 103/52 O2 Sat by Pulse 100 100 100 Oximetry 11/11/18 11/11/18 11/11/18 05:30 05:45 06:00 Pulse Rate 99 H 100 H 99 H Pulse Rate [ From Monitor] Respiratory 26 H 34 H 27 H Rate Blood Pressure 97/52 115/57 100/57 O2 Sat by Pulse 100 100 100 Oximetry 11/11/18 11/11/18 11/11/18 06:15 06:30 06:45 Pulse Rate 99 H 99 H 98 H Pulse Rate [ From Monitor] Respiratory 26 H 23 28 H Rate Blood Pressure 108/55 89/43 110/56 O2 Sat by Pulse 100 100 100 Oximetry 11/11/18 11/11/18 11/11/18 07:00 07:15 07:24 Pulse Rate 99 H 98 H 98 H Pulse Rate [ From Monitor] Respiratory 25 H 20 Rate Blood Pressure 110/47 132/63 132/63 O2 Sat by Pulse 99 99 98 Oximetry 11/11/18 11/11/18 11/11/18 07:26 07:30 07:45 Pulse Rate 98 H 98 H 101 H Pulse Rate [ From Monitor] Respiratory 33 H 31 H 32 H Rate Blood Pressure 132/63 136/61 122/54 O2 Sat by Pulse 99 99 98 Oximetry 11/11/18 11/11/18 11/11/18 08:00 08:15 08:30 Pulse Rate 101 H 102 H 100 H Pulse Rate [ From Monitor] Respiratory 33 H 32 H 33 H Rate Blood Pressure 122/55 113/53 115/53 O2 Sat by Pulse 98 97 97 Oximetry 11/11/18 11/11/18 11/11/18 08:45 09:00 09:15 Pulse Rate 101 H 102 H 101 H Pulse Rate [ From Monitor] Respiratory 33 H 34 H 34 H Rate Blood Pressure 116/53 118/53 121/56 O2 Sat by Pulse 97 97 98 Oximetry 11/11/18 11/11/18 11/11/18 09:30 09:45 10:00 Pulse Rate 101 H 100 H 102 H Pulse Rate [ From Monitor] Respiratory 34 H 33 H 30 H Rate Blood Pressure 125/58 113/54 106/60 O2 Sat by Pulse 98 98 100 Oximetry 11/11/18 11/11/18 11/11/18 10:15 10:30 10:45 Pulse Rate 100 H 100 H 99 H Pulse Rate [ From Monitor] Respiratory 30 H 33 H 33 H Rate Blood Pressure 106/48 110/54 102/51 O2 Sat by Pulse 99 98 98 Oximetry 11/11/18 11/11/18 11/11/18 11:00 11:15 11:47 Pulse Rate 98 H 99 H 101 H Pulse Rate [ From Monitor] Respiratory 24 17 Rate Blood Pressure 107/57 112/58 106/58 O2 Sat by Pulse 98 99 98 Oximetry Constitutional: appears uncomfortable, other (elderly looking AAM, normocephalic and with mildly increased resp effort at rest) Eyes: non-icteric ENT: oropharynx moist, other (ETT 23 cm CATHLEEN) Neck: supple, no lymphadenopathy, no JVD, other (no thyromegaly) Effort: mildly labored Ascultation: Bilateral: diminished breath sounds, rhonchi Percussion: Bilateral: not dull Cardiovascular: regular rate and rhythm, murmur noted (systolic) Gastrointestinal: normoactive bowel sounds, soft, non-tender, non-distended Integumentary: rash Extremities: no cyanosis, no edema, pulses normal, no ischemia or petechiae Neurologic: unable to assess Psychiatric: other (unable to assess) CBC and BMP: 11/15/18 07:40 11/14/18 04:32 ABG, PT/INR, D-dimer: ABG POC ABG pH 7.398 (7.35-7.45) 11/11/18 04:45 POC ABG pCO2 34.2 (35-45) L 11/11/18 04:45 POC ABG pO2 82 (80-105) 11/11/18 04:45 POC ABG HCO3 21.1 (22-26 mml/L) 11/11/18 04:45 POC ABG Total CO2 22 (23-27mmol/L) 11/11/18 04:45 POC ABG O2 Sat 96 11/11/18 04:45 PT/INR, D-dimer PT 15.8 Sec. (12.2-14.9) H 11/08/18 07:09 INR 1.18 (0.87-1.13) H 11/08/18 07:09 Abnormal lab findings: Abnormal Labs 10/29/18 10/29/18 10/29/18 17:13 17:13 17:13 RBC 3.62 L Hgb Hct MCV 102 H MCH 34 H RDW 19.6 H Plt Count Lymph % (Auto) [place] % (Auto) 7.8 H Lymph # Seg Neutrophils % 71.2 H Seg Neuts % (Manual) Lymphocytes % (Manual) Monocytes % (Manual) Seg Neutrophils # Lymphocytes # (Manual) PT INR POC ABG pH POC ABG pCO2 POC ABG pO2 Sodium 164 H* Potassium 6.2 H* Chloride 127.5 H Carbon Dioxide BUN 178 H Creatinine 4.2 H Glucose 131 H POC Glucose Calcium 10.7 H C-Reactive Protein Total Protein 9.5 H Albumin 2.6 L TSH 5.310 H Urine pH Urine WBC (Auto) Vancomycin Trough 10/29/18 10/30/18 10/30/18 23:57 00:06 04:35 RBC Hgb Hct MCV MCH RDW Plt Count Lymph % (Auto) [place] % (Auto) Lymph # Seg Neutrophils % Seg Neuts % (Manual) Lymphocytes % (Manual) Monocytes % (Manual) Seg Neutrophils # Lymphocytes # (Manual) PT INR POC ABG pH 7.488 H POC ABG pCO2 32.1 L 34.9 L POC ABG pO2 144 H Sodium Potassium Chloride Carbon Dioxide BUN Creatinine Glucose POC Glucose 131 H Calcium C-Reactive Protein Total Protein Albumin TSH Urine pH Urine WBC (Auto) Vancomycin Trough 10/30/18 10/30/18 10/30/18 05:13 08:54 08:54 RBC 3.56 L Hgb 11.7 L Hct MCV 102 H MCH 33 H RDW 19.2 H Plt Count Lymph % (Auto) [place] % (Auto) Lymph # Seg Neutrophils % Seg Neuts % (Manual) Lymphocytes % (Manual) Monocytes % (Manual) Seg Neutrophils # Lymphocytes # (Manual) PT INR POC ABG pH POC ABG pCO2 POC ABG pO2 Sodium Potassium Chloride Carbon Dioxide BUN Creatinine Glucose POC Glucose 316 H Calcium C-Reactive Protein 5.20 H Total Protein Albumin 2.2 L TSH Urine pH Urine WBC (Auto) Vancomycin Trough 10/30/18 10/30/18 10/30/18 08:59 12:03 18:30 RBC Hgb Hct MCV MCH RDW Plt Count Lymph % (Auto) [place] % (Auto) Lymph # Seg Neutrophils % Seg Neuts % (Manual) Lymphocytes % (Manual) Monocytes % (Manual) Seg Neutrophils # Lymphocytes # (Manual) PT INR POC ABG pH POC ABG pCO2 POC ABG pO2 Sodium 146 H D Potassium Chloride Carbon Dioxide BUN 86 H Creatinine 2.7 H Glucose 262 H POC Glucose 232 H 57 L Calcium C-Reactive Protein Total Protein Albumin TSH Urine pH Urine WBC (Auto) Vancomycin Trough 10/30/18 10/30/18 10/30/18 18:39 19:07 19:42 RBC Hgb Hct MCV MCH RDW Plt Count Lymph % (Auto) [place] % (Auto) Lymph # Seg Neutrophils % Seg Neuts % (Manual) Lymphocytes % (Manual) Monocytes % (Manual) Seg Neutrophils # Lymphocytes # (Manual) PT INR POC ABG pH POC ABG pCO2 POC ABG pO2 Sodium Potassium Chloride Carbon Dioxide BUN Creatinine Glucose POC Glucose < 40 L 51 L Calcium C-Reactive Protein Total Protein Albumin TSH Urine pH 8.0 H Urine WBC (Auto) > 182.0 H Vancomycin Trough 10/30/18 10/30/18 10/30/18 19:51 23:13 23:20 RBC Hgb Hct MCV MCH RDW Plt Count Lymph % (Auto) [place] % (Auto) Lymph # Seg Neutrophils % Seg Neuts % (Manual) Lymphocytes % (Manual) Monocytes % (Manual) Seg Neutrophils # Lymphocytes # (Manual) PT INR POC ABG pH POC ABG pCO2 POC ABG pO2 Sodium Potassium Chloride 108.5 H Carbon Dioxide 21 L BUN 96 H Creatinine 3.0 H Glucose 865 H* 150 H POC Glucose 152 H Calcium C-Reactive Protein Total Protein Albumin TSH Urine pH Urine WBC (Auto) Vancomycin Trough 10/30/18 10/31/18 10/31/18 23:40 04:43 04:43 RBC Hgb Hct MCV 100 H MCH 33 H RDW 18.1 H Plt Count Lymph % (Auto) [place] % (Auto) Lymph # Seg Neutrophils % Seg Neuts % (Manual) Lymphocytes % (Manual) 4.0 L Monocytes % (Manual) Seg Neutrophils # Lymphocytes # (Manual) 0.3 L PT INR POC ABG pH POC ABG pCO2 POC ABG pO2 Sodium Potassium Chloride Carbon Dioxide 19 L BUN 98 H Creatinine 3.2 H Glucose 184 H POC Glucose 145 H Calcium C-Reactive Protein Total Protein Albumin TSH Urine pH Urine WBC (Auto) Vancomycin Trough 10/31/18 10/31/18 10/31/18 05:44 11:44 13:19 RBC Hgb Hct MCV MCH RDW Plt Count Lymph % (Auto) [place] % (Auto) Lymph # Seg Neutrophils % Seg Neuts % (Manual) Lymphocytes % (Manual) Monocytes % (Manual) Seg Neutrophils # Lymphocytes # (Manual) PT INR POC ABG pH POC ABG pCO2 POC ABG pO2 64 L Sodium Potassium Chloride Carbon Dioxide BUN Creatinine Glucose POC Glucose 142 H 196 H Calcium C-Reactive Protein Total Protein Albumin TSH Urine pH Urine WBC (Auto) Vancomycin Trough 10/31/18 11/01/18 11/01/18 17:36 04:07 04:07 RBC 3.40 L Hgb 11.2 L Hct 33.6 L MCV 99 H MCH 33 H RDW 17.5 H Plt Count Lymph % (Auto) [place] % (Auto) Lymph # Seg Neutrophils % Seg Neuts % (Manual) 80.0 H Lymphocytes % (Manual) 4.0 L Monocytes % (Manual) Seg Neutrophils # Lymphocytes # (Manual) 0.3 L PT INR POC ABG pH POC ABG pCO2 POC ABG pO2 Sodium Potassium Chloride Carbon Dioxide 19 L BUN 108 H Creatinine 3.9 H Glucose 138 H POC Glucose 174 H Calcium 7.9 L C-Reactive Protein Total Protein Albumin TSH Urine pH Urine WBC (Auto) Vancomycin Trough 11/01/18 11/01/18 11/01/18 05:24 05:36 13:09 RBC Hgb Hct MCV MCH RDW Plt Count Lymph % (Auto) [place] % (Auto) Lymph # Seg Neutrophils % Seg Neuts % (Manual) Lymphocytes % (Manual) Monocytes % (Manual) Seg Neutrophils # Lymphocytes # (Manual) PT INR POC ABG pH POC ABG pCO2 POC ABG pO2 65 L Sodium Potassium Chloride Carbon Dioxide BUN Creatinine Glucose POC Glucose 153 H 249 H Calcium C-Reactive Protein Total Protein Albumin TSH Urine pH Urine WBC (Auto) Vancomycin Trough 11/01/18 11/02/18 11/02/18 18:11 05:04 07:17 RBC 3.08 L Hgb 10.1 L Hct 30.1 L MCV 98 H MCH 33 H RDW 16.7 H Plt Count Lymph % (Auto) [place] % (Auto) Lymph # Seg Neutrophils % Seg Neuts % (Manual) 92.0 H Lymphocytes % (Manual) 3.0 L Monocytes % (Manual) Seg Neutrophils # Lymphocytes # (Manual) 0.2 L PT INR POC ABG pH POC ABG pCO2 POC ABG pO2 Sodium Potassium Chloride Carbon Dioxide BUN Creatinine Glucose POC Glucose 175 H 118 H Calcium C-Reactive Protein Total Protein Albumin TSH Urine pH Urine WBC (Auto) Vancomycin Trough 11/02/18 11/02/18 11/02/18 07:54 09:32 12:28 RBC Hgb Hct MCV MCH RDW Plt Count Lymph % (Auto) [place] % (Auto) Lymph # Seg Neutrophils % Seg Neuts % (Manual) Lymphocytes % (Manual) Monocytes % (Manual) Seg Neutrophils # Lymphocytes # (Manual) PT INR POC ABG pH 7.514 H POC ABG pCO2 POC ABG pO2 70 L Sodium 135 L Potassium Chloride Carbon Dioxide BUN 48 H Creatinine 2.2 H Glucose 170 H POC Glucose 242 H Calcium 7.4 L C-Reactive Protein Total Protein Albumin TSH Urine pH Urine WBC (Auto) Vancomycin Trough 11/02/18 11/03/18 11/03/18 23:32 04:34 05:10 RBC 2.87 L Hgb 9.4 L Hct 28.5 L MCV 99 H MCH 33 H RDW 16.7 H Plt Count Lymph % (Auto) [place] % (Auto) Lymph # Seg Neutrophils % Seg Neuts % (Manual) 91.0 H Lymphocytes % (Manual) 4.0 L Monocytes % (Manual) Seg Neutrophils # Lymphocytes # (Manual) 0.3 L PT INR POC ABG pH POC ABG pCO2 33.2 L POC ABG pO2 76 L Sodium Potassium Chloride Carbon Dioxide BUN Creatinine Glucose POC Glucose 177 H Calcium C-Reactive Protein Total Protein Albumin TSH Urine pH Urine WBC (Auto) Vancomycin Trough 11/03/18 11/03/18 11/03/18 06:04 12:26 18:43 RBC Hgb Hct MCV MCH RDW Plt Count Lymph % (Auto) [place] % (Auto) Lymph # Seg Neutrophils % Seg Neuts % (Manual) Lymphocytes % (Manual) Monocytes % (Manual) Seg Neutrophils # Lymphocytes # (Manual) PT INR POC ABG pH POC ABG pCO2 POC ABG pO2 Sodium Potassium Chloride Carbon Dioxide BUN Creatinine Glucose POC Glucose 168 H 196 H 153 H Calcium C-Reactive Protein Total Protein Albumin TSH Urine pH Urine WBC (Auto) Vancomycin Trough 11/03/18 11/04/18 11/04/18 23:34 03:50 05:05 RBC 2.74 L Hgb 9.1 L Hct 27.3 L MCV 99 H MCH 33 H RDW 16.5 H Plt Count Lymph % (Auto) [place] % (Auto) Lymph # Seg Neutrophils % Seg Neuts % (Manual) 87.0 H Lymphocytes % (Manual) 7.0 L Monocytes % (Manual) Seg Neutrophils # Lymphocytes # (Manual) 0.5 L PT INR POC ABG pH POC ABG pCO2 31.7 L POC ABG pO2 74 L Sodium Potassium Chloride Carbon Dioxide BUN Creatinine Glucose POC Glucose 213 H Calcium C-Reactive Protein Total Protein Albumin TSH Urine pH Urine WBC (Auto) Vancomycin Trough 11/04/18 11/04/18 11/04/18 05:05 05:23 12:26 RBC Hgb Hct MCV MCH RDW Plt Count Lymph % (Auto) [place] % (Auto) Lymph # Seg Neutrophils % Seg Neuts % (Manual) Lymphocytes % (Manual) Monocytes % (Manual) Seg Neutrophils # Lymphocytes # (Manual) PT INR POC ABG pH POC ABG pCO2 POC ABG pO2 Sodium Potassium Chloride Carbon Dioxide BUN 84 H Creatinine 3.3 H Glucose 177 H POC Glucose 196 H 182 H Calcium 7.6 L C-Reactive Protein Total Protein Albumin TSH Urine pH Urine WBC (Auto) Vancomycin Trough 11/04/18 11/04/18 11/05/18 13:25 22:36 05:07 RBC Hgb Hct MCV MCH RDW Plt Count Lymph % (Auto) [place] % (Auto) Lymph # Seg Neutrophils % Seg Neuts % (Manual) Lymphocytes % (Manual) Monocytes % (Manual) Seg Neutrophils # Lymphocytes # (Manual) PT INR POC ABG pH POC ABG pCO2 30.1 L POC ABG pO2 63 L Sodium Potassium Chloride Carbon Dioxide BUN Creatinine Glucose POC Glucose 159 H Calcium C-Reactive Protein Total Protein Albumin TSH Urine pH Urine WBC (Auto) Vancomycin Trough 4.4 L 11/05/18 11/05/18 11/05/18 05:42 06:36 12:54 RBC Hgb Hct MCV MCH RDW Plt Count Lymph % (Auto) [place] % (Auto) Lymph # Seg Neutrophils % Seg Neuts % (Manual) Lymphocytes % (Manual) Monocytes % (Manual) Seg Neutrophils # Lymphocytes # (Manual) PT INR POC ABG pH POC ABG pCO2 POC ABG pO2 Sodium 134 L Potassium 3.4 L Chloride Carbon Dioxide 18 L BUN 93 H Creatinine 3.7 H Glucose 230 H POC Glucose 233 H 237 H Calcium 7.8 L C-Reactive Protein Total Protein Albumin TSH Urine pH Urine WBC (Auto) Vancomycin Trough 11/05/18 11/05/18 11/06/18 19:36 23:35 01:59 RBC Hgb Hct MCV MCH RDW Plt Count Lymph % (Auto) [place] % (Auto) Lymph # Seg Neutrophils % Seg Neuts % (Manual) Lymphocytes % (Manual) Monocytes % (Manual) Seg Neutrophils # Lymphocytes # (Manual) PT INR POC ABG pH POC ABG pCO2 POC ABG pO2 Sodium Potassium Chloride Carbon Dioxide BUN Creatinine Glucose POC Glucose 174 H 56 L 112 H Calcium C-Reactive Protein Total Protein Albumin TSH Urine pH Urine WBC (Auto) Vancomycin Trough 11/06/18 11/06/18 11/06/18 04:33 05:06 07:24 RBC 2.83 L Hgb 9.3 L Hct 27.9 L MCV 99 H MCH 33 H RDW 15.9 H Plt Count 133 L Lymph % (Auto) [place] % (Auto) Lymph # Seg Neutrophils % Seg Neuts % (Manual) 94.0 H Lymphocytes % (Manual) 4.0 L Monocytes % (Manual) Seg Neutrophils # Lymphocytes # (Manual) 0.3 L PT INR POC ABG pH POC ABG pCO2 32.4 L POC ABG pO2 73 L Sodium Potassium Chloride Carbon Dioxide BUN Creatinine Glucose POC Glucose 139 H Calcium C-Reactive Protein Total Protein Albumin TSH Urine pH Urine WBC (Auto) Vancomycin Trough 11/06/18 11/06/18 11/06/18 07:24 11:52 17:16 RBC Hgb Hct MCV MCH RDW Plt Count Lymph % (Auto) [place] % (Auto) Lymph # Seg Neutrophils % Seg Neuts % (Manual) Lymphocytes % (Manual) Monocytes % (Manual) Seg Neutrophils # Lymphocytes # (Manual) PT INR POC ABG pH POC ABG pCO2 POC ABG pO2 Sodium 136 L Potassium 3.2 L Chloride Carbon Dioxide BUN 59 H Creatinine 2.3 H Glucose 137 H POC Glucose 212 H 194 H Calcium 7.4 L C-Reactive Protein Total Protein Albumin TSH Urine pH Urine WBC (Auto) Vancomycin Trough 11/07/18 11/07/18 11/07/18 00:44 05:56 06:12 RBC 2.64 L Hgb 8.7 L Hct 26.3 L MCV 100 H MCH 33 H RDW 15.7 H Plt Count Lymph % (Auto) 4.6 L [place] % (Auto) Lymph # 0.4 L Seg Neutrophils % 89.4 H Seg Neuts % (Manual) Lymphocytes % (Manual) Monocytes % (Manual) Seg Neutrophils # 8.3 H Lymphocytes # (Manual) PT INR POC ABG pH POC ABG pCO2 POC ABG pO2 Sodium Potassium Chloride Carbon Dioxide BUN Creatinine Glucose POC Glucose 193 H 145 H Calcium C-Reactive Protein Total Protein Albumin TSH Urine pH Urine WBC (Auto) Vancomycin Trough 11/07/18 11/07/18 11/07/18 06:12 12:20 17:27 RBC Hgb Hct MCV MCH RDW Plt Count Lymph % (Auto) [place] % (Auto) Lymph # Seg Neutrophils % Seg Neuts % (Manual) Lymphocytes % (Manual) Monocytes % (Manual) Seg Neutrophils # Lymphocytes # (Manual) PT INR POC ABG pH POC ABG pCO2 POC ABG pO2 Sodium Potassium Chloride Carbon Dioxide BUN 74 H Creatinine 2.8 H Glucose 143 H POC Glucose 207 H 170 H Calcium 7.7 L C-Reactive Protein Total Protein Albumin TSH Urine pH Urine WBC (Auto) Vancomycin Trough 11/07/18 11/08/18 11/08/18 23:40 06:04 07:09 RBC Hgb Hct MCV MCH RDW Plt Count Lymph % (Auto) [place] % (Auto) Lymph # Seg Neutrophils % Seg Neuts % (Manual) Lymphocytes % (Manual) Monocytes % (Manual) Seg Neutrophils # Lymphocytes # (Manual) PT 15.8 H INR 1.18 H POC ABG pH POC ABG pCO2 POC ABG pO2 Sodium Potassium Chloride Carbon Dioxide BUN Creatinine Glucose POC Glucose 188 H 170 H Calcium C-Reactive Protein Total Protein Albumin TSH Urine pH Urine WBC (Auto) Vancomycin Trough 11/08/18 11/08/18 11/08/18 11:21 18:29 23:10 RBC Hgb Hct MCV MCH RDW Plt Count Lymph % (Auto) [place] % (Auto) Lymph # Seg Neutrophils % Seg Neuts % (Manual) Lymphocytes % (Manual) Monocytes % (Manual) Seg Neutrophils # Lymphocytes # (Manual) PT INR POC ABG pH POC ABG pCO2 POC ABG pO2 Sodium Potassium Chloride Carbon Dioxide BUN Creatinine Glucose POC Glucose 191 H 224 H 197 H Calcium C-Reactive Protein Total Protein Albumin TSH Urine pH Urine WBC (Auto) Vancomycin Trough 11/09/18 11/09/18 11/09/18 04:59 07:35 07:35 RBC 2.51 L Hgb 8.3 L Hct 25.3 L MCV 101 H MCH 33 H RDW Plt Count Lymph % (Auto) [place] % (Auto) Lymph # Seg Neutrophils % Seg Neuts % (Manual) 79.0 H Lymphocytes % (Manual) 8.0 L Monocytes % (Manual) 9.0 H Seg Neutrophils # Lymphocytes # (Manual) 0.6 L PT INR POC ABG pH POC ABG pCO2 POC ABG pO2 Sodium 133 L Potassium 3.5 L Chloride Carbon Dioxide BUN 54 H Creatinine 2.4 H Glucose 166 H POC Glucose 173 H Calcium 8.0 L C-Reactive Protein Total Protein Albumin TSH Urine pH Urine WBC (Auto) Vancomycin Trough 11/09/18 11/09/18 11/09/18 11:47 15:17 17:15 RBC Hgb Hct MCV MCH RDW Plt Count Lymph % (Auto) [place] % (Auto) Lymph # Seg Neutrophils % Seg Neuts % (Manual) Lymphocytes % (Manual) Monocytes % (Manual) Seg Neutrophils # Lymphocytes # (Manual) PT INR POC ABG pH POC ABG pCO2 POC ABG pO2 75 L Sodium Potassium Chloride Carbon Dioxide BUN Creatinine Glucose POC Glucose 226 H 202 H Calcium C-Reactive Protein Total Protein Albumin TSH Urine pH Urine WBC (Auto) Vancomycin Trough 11/10/18 11/10/18 11/10/18 00:04 04:34 04:34 RBC 2.36 L Hgb 7.8 L Hct 24.1 L MCV 102 H MCH 33 H RDW Plt Count Lymph % (Auto) [place] % (Auto) Lymph # Seg Neutrophils % Seg Neuts % (Manual) 82.0 H Lymphocytes % (Manual) 6.0 L Monocytes % (Manual) Seg Neutrophils # Lymphocytes # (Manual) 0.3 L PT INR POC ABG pH POC ABG pCO2 POC ABG pO2 Sodium 136 L Potassium 3.2 L Chloride Carbon Dioxide BUN 39 H Creatinine 2.0 H Glucose 152 H POC Glucose 197 H Calcium 8.3 L C-Reactive Protein Total Protein 6.0 L Albumin 1.4 L TSH Urine pH Urine WBC (Auto) Vancomycin Trough 11/10/18 11/10/18 11/10/18 05:12 12:01 17:48 RBC Hgb Hct MCV MCH RDW Plt Count Lymph % (Auto) [place] % (Auto) Lymph # Seg Neutrophils % Seg Neuts % (Manual) Lymphocytes % (Manual) Monocytes % (Manual) Seg Neutrophils # Lymphocytes # (Manual) PT INR POC ABG pH POC ABG pCO2 POC ABG pO2 Sodium Potassium Chloride Carbon Dioxide BUN Creatinine Glucose POC Glucose 163 H 139 H 215 H Calcium C-Reactive Protein Total Protein Albumin TSH Urine pH Urine WBC (Auto) Vancomycin Trough 11/10/18 11/11/18 11/11/18 23:51 04:45 06:05 RBC Hgb Hct MCV MCH RDW Plt Count Lymph % (Auto) [place] % (Auto) Lymph # Seg Neutrophils % Seg Neuts % (Manual) Lymphocytes % (Manual) Monocytes % (Manual) Seg Neutrophils # Lymphocytes # (Manual) PT INR POC ABG pH POC ABG pCO2 34.2 L POC ABG pO2 Sodium Potassium Chloride Carbon Dioxide BUN Creatinine Glucose POC Glucose 243 H 175 H Calcium C-Reactive Protein Total Protein Albumin TSH Urine pH Urine WBC (Auto) Vancomycin Trough 11/11/18 11/11/18 06:07 06:07 RBC 2.27 L Hgb 7.6 L Hct 22.6 L MCV 100 H MCH 33 H RDW Plt Count Lymph % (Auto) 10.7 L [place] % (Auto) Lymph # 0.6 L Seg Neutrophils % 81.0 H Seg Neuts % (Manual) 81.0 H Lymphocytes % (Manual) 11.0 L Monocytes % (Manual) Seg Neutrophils # Lymphocytes # (Manual) 0.6 L PT INR POC ABG pH POC ABG pCO2 POC ABG pO2 Sodium 134 L Potassium 3.2 L Chloride Carbon Dioxide BUN 58 H Creatinine 2.6 H Glucose 139 H POC Glucose Calcium 7.7 L C-Reactive Protein Total Protein 6.2 L Albumin 1.4 L TSH Urine pH Urine WBC (Auto) Vancomycin Trough Chest x-ray: pending Allied health notes reviewed: nursing
--- NOTE | 2018-11-11 13:28 | Progress Note ---
Assessment and Plan The patient is a 73 YO AAM with history significant for Prostate cancer, ESRD on hemodialysis, DM type 2, Urinary retention and PAD s/p R AKA who presented to the ED via EMS from his long-term with complaints of altered mental status a nd noncompliance with dialysis. He with agonal breathing but was resuscitated according [facility] guideline, intubated and currently on the vent. He was under [facility], at some point. Nephrology was consulted for managing ESRD. - Severe sepsis with septic shock with positive MRSA in tracheal aspirate On pressors and ivf iv antibiotic per ID - s/p PEA arrest continue cardiac monitoring with vent support - Right sided Pneumonia continue with iv antibiotic per ID - Hypotension Multifactorial On pressors - Acute hypoxemic respiratory failure continue with mechanical ventilation - Acute metabolic encephalopathy with lateral gaze on mechamical ventilation and treatment of multiple underlying factors - ESRD on HD nephrology following - Hypokalemia Will cautiously replete - Anemia from Chronic disease - PVD s/p right AKA and left TMA - Prostate cancer s/p suprapubic catheter functioning well. - DVT on Heparin - Severe protein calorie malnutrition Dietary consult - Prognosis : Very poor Subjective Date of service: 11/11/18 Principal diagnosis: sepsis, acute resp, failure. Interval history: Remains intubated and on mechanical ventilation. Still on pressors Objective - Exam Narrative Exam: Constitutional: Very ill appearing. Intubated an on mechanical ventilation > 96 hrs Head: Normocephalic atraumatic Eyes: lateral gaze, Pupils are equal round and reactive to light Nose: No enlarged turbinates, no septal deviation. Mouth: Moist mucous membranes. Neck: Supple no thyromegaly. No bruit. No JVD Heart: Regular rate and rhythm, S1-S2 normal. No rubs murmurs or gallop Lungs: DecreasedClear to auscultation bilaterally. no rales or rhonchi Abdomen: Soft, nontender. Bowel sound are present. Extremities: right AKA and left TMA. No edema on the left leg. Neuro: intubated and on mechanical ventilation. None responsive. Skin: No rashes or hyperpigmented spots Musculoskeletal system: No joint pain or swelling Hematological: No petechia or subcutanous hemorrhages. Immunological: No multiple septic spots on the skin Lymphatic: No generalized lymphadenopathy Psychiatry:intubated and on mechanical ventilation - Constitutional Vitals: Vital Signs - 12hr 11/11/18 11/11/18 11/11/18 01:30 01:45 02:00 Temperature Pulse Rate 102 H 102 H 102 H Pulse Rate [ From Monitor] Respiratory 28 H 33 H 21 Rate Blood Pressure 119/60 126/65 122/63 O2 Sat by Pulse 100 100 100 Oximetry 11/11/18 11/11/18 11/11/18 02:15 02:30 02:45 Temperature Pulse Rate 102 H 100 H 102 H Pulse Rate [ From Monitor] Respiratory 34 H 26 H 29 H Rate Blood Pressure 113/62 114/58 122/62 O2 Sat by Pulse 100 100 100 Oximetry 11/11/18 11/11/18 11/11/18 03:00 03:15 03:30 Temperature Pulse Rate 101 H 102 H 101 H Pulse Rate [ From Monitor] Respiratory 26 H 32 H 33 H Rate Blood Pressure 102/58 133/64 115/57 O2 Sat by Pulse 100 100 100 Oximetry 11/11/18 11/11/18 11/11/18 03:45 04:00 04:15 Temperature Pulse Rate 104 H 100 H 100 H Pulse Rate [ 100 H From Monitor] Respiratory 16 24 31 H Rate Blood Pressure 137/70 113/56 110/56 O2 Sat by Pulse 100 100 100 Oximetry 11/11/18 11/11/18 11/11/18 04:30 04:45 05:00 Temperature Pulse Rate 99 H 100 H 99 H Pulse Rate [ From Monitor] Respiratory 28 H 30 H 30 H Rate Blood Pressure 101/52 108/53 101/56 O2 Sat by Pulse 100 100 100 Oximetry 11/11/18 11/11/18 11/11/18 05:15 05:30 05:45 Temperature Pulse Rate 98 H 99 H 100 H Pulse Rate [ From Monitor] Respiratory 24 26 H 34 H Rate Blood Pressure 103/52 97/52 115/57 O2 Sat by Pulse 100 100 100 Oximetry 11/11/18 11/11/18 11/11/18 06:00 06:15 06:30 Temperature Pulse Rate 99 H 99 H 99 H Pulse Rate [ From Monitor] Respiratory 27 H 26 H 23 Rate Blood Pressure 100/57 108/55 89/43 O2 Sat by Pulse 100 100 100 Oximetry 11/11/18 11/11/18 11/11/18 06:45 07:00 07:15 Temperature Pulse Rate 98 H 99 H 98 H Pulse Rate [ From Monitor] Respiratory 28 H 25 H 20 Rate Blood Pressure 110/56 110/47 132/63 O2 Sat by Pulse 100 99 99 Oximetry 11/11/18 11/11/18 11/11/18 07:24 07:26 07:30 Temperature Pulse Rate 98 H 98 H 98 H Pulse Rate [ From Monitor] Respiratory 33 H 31 H Rate Blood Pressure 132/63 132/63 136/61 O2 Sat by Pulse 98 99 99 Oximetry 11/11/18 11/11/18 11/11/18 07:45 08:00 08:15 Temperature 98.8 F Pulse Rate 101 H 101 H 102 H Pulse Rate [ From Monitor] Respiratory 32 H 33 H 32 H Rate Blood Pressure 122/54 122/55 113/53 O2 Sat by Pulse 98 98 97 Oximetry 11/11/18 11/11/18 11/11/18 08:30 08:45 09:00 Temperature Pulse Rate 100 H 101 H 102 H Pulse Rate [ From Monitor] Respiratory 33 H 33 H 34 H Rate Blood Pressure 115/53 116/53 118/53 O2 Sat by Pulse 97 97 97 Oximetry 11/11/18 11/11/18 11/11/18 09:15 09:30 09:45 Temperature Pulse Rate 101 H 101 H 100 H Pulse Rate [ From Monitor] Respiratory 34 H 34 H 33 H Rate Blood Pressure 121/56 125/58 113/54 O2 Sat by Pulse 98 98 98 Oximetry 11/11/18 11/11/18 11/11/18 10:00 10:15 10:30 Temperature Pulse Rate 102 H 100 H 100 H Pulse Rate [ From Monitor] Respiratory 30 H 30 H 33 H Rate Blood Pressure 106/60 106/48 110/54 O2 Sat by Pulse 100 99 98 Oximetry 11/11/18 11/11/18 11/11/18 10:45 11:00 11:15 Temperature Pulse Rate 99 H 98 H 99 H Pulse Rate [ From Monitor] Respiratory 33 H 24 17 Rate Blood Pressure 102/51 107/57 112/58 O2 Sat by Pulse 98 98 99 Oximetry 11/11/18 11/11/18 11/11/18 11:30 11:45 11:47 Temperature Pulse Rate 100 H 101 H 101 H Pulse Rate [ From Monitor] Respiratory 25 H 30 H Rate Blood Pressure 102/56 106/58 106/58 O2 Sat by Pulse 98 98 98 Oximetry 11/11/18 11/11/18 11/11/18 12:00 12:15 12:30 Temperature 98.6 F Pulse Rate 100 H 99 H 99 H Pulse Rate [ From Monitor] Respiratory 28 H 25 H 30 H Rate Blood Pressure 103/54 96/55 102/56 O2 Sat by Pulse 99 99 99 Oximetry 11/11/18 11/11/18 12:45 13:00 Temperature Pulse Rate 98 H 98 H Pulse Rate [ From Monitor] Respiratory 29 H 30 H Rate Blood Pressure 98/55 99/56 O2 Sat by Pulse 99 99 Oximetry - Labs CBC & Chem 7: 11/11/18 06:07 11/11/18 06:07 Labs: Abnormal lab results 11/10/18 11/10/18 11/11/18 Range/Units 17:48 23:51 04:45 RBC (3.65-5.03) M/mm3 Hgb (11.8-15.2) gm/dl Hct (35.5-45.6) % MCV (84-94) fl MCH (28-32) pg Lymph % (Auto) (13.4-35.0) % Lymph # (1.2-5.4) K/mm3 Seg Neutrophils % (40.0-70.0) % Seg Neuts % (Manual) (40.0-70.0) % Lymphocytes % (Manual) (13.4-35.0) % Lymphocytes # (Manual) (1.2-5.4) K/mm3 POC ABG pCO2 34.2 L (35-45) Sodium (137-145) mmol/L Potassium (3.6-5.0) mmol/L BUN (9-20) mg/dL Creatinine (0.8-1.5) mg/dL Glucose (75-100) mg/dL POC Glucose 215 H 243 H (70-105) Calcium (8.4-10.2) mg/dL Total Protein (6.3-8.2) g/dL Albumin (3.9-5) g/dL 11/11/18 11/11/18 11/11/18 Range/Units 06:05 06:07 06:07 RBC 2.27 L (3.65-5.03) M/mm3 Hgb 7.6 L (11.8-15.2) gm/dl Hct 22.6 L (35.5-45.6) % MCV 100 H (84-94) fl MCH 33 H (28-32) pg Lymph % (Auto) 10.7 L (13.4-35.0) % Lymph # 0.6 L (1.2-5.4) K/mm3 Seg Neutrophils % 81.0 H (40.0-70.0) % Seg Neuts % (Manual) 81.0 H (40.0-70.0) % Lymphocytes % (Manual) 11.0 L (13.4-35.0) % Lymphocytes # (Manual) 0.6 L (1.2-5.4) K/mm3 POC ABG pCO2 (35-45) Sodium 134 L (137-145) mmol/L Potassium 3.2 L (3.6-5.0) mmol/L BUN 58 H (9-20) mg/dL Creatinine 2.6 H (0.8-1.5) mg/dL Glucose 139 H (75-100) mg/dL POC Glucose 175 H (70-105) Calcium 7.7 L (8.4-10.2) mg/dL Total Protein 6.2 L (6.3-8.2) g/dL Albumin 1.4 L (3.9-5) g/dL
--- NOTE | 2018-11-11 14:12 | Progress Note ---
Assessment and Plan Cultures: 10/29/2018 Blood culture: No growth 10/30/2018 sputum culture: MRSA 10/30/2018 urine culture: Mixed growth 11/02/2018 blood culture: no growth 11/09/2018 blood culture: no growth A/P: 73-year-old male with prostate cancer, ESRD on hemodialysis, diabetes mellitus, peripheral vascular disease status post right-sided AKA is admitted to the hospital [facility] a [facility] due to altered mental status. Apparently, the patient had been refusing dialysis for a week prior to admission. Now with: 1) Severe sepsis with shock s/p PEA arrest: remains on pressors, mechanical ventilation. 2) Right-sided pneumonia with acute hypoxic respiratory failure: On mechanical ventilation. Chest x-ray showing right-sided infiltrate. Sputum culture growing MRSA. 3) Possible UTI: Patient with indwelling suprapubic catheter. Also with ESRD on hemodialysis. This makes UA difficult to interpret for infection since quite likely to have urinary sediment. 4) ESRD on hemodialysis: Noncompliant. Renally dose abx. 5) Peripheral vascular disease: Status post right BKA, left TMA. 6) Right gluteal decubitus ulcer with eschar: continue wound care. 7) R sphenoid sinusitis noted on CT: already on abx. Recs: continue renally vancomycin, target pre-dialysis level 10-20 mcg/ml (today is Day 12) continue IV Cefepime renally adjusted Day 3 if fevers return, consider removal of femoral HD cath Overall extremely poor prognosis, strongly recommend comfort/palliative care Aaron Regan MD [facility] C: [phone] O: [phone] F: [phone] Subjective Date of service: 11/11/18 Principal diagnosis: sepsis, acute resp, failure. Interval history: Remains unresponsive. Remains on the vent. Remains on pressors. Fever curve improving. Objective - Exam Narrative Exam: Physical Exam: Constitutional: unresponsive, intubated Head, Ears, Nose: Normocephalic, atraumatic. External ears, nose normal Eyes: Conjunctivae/corneas clear. No icterus. No ptosis. Neck: Supple, no meningeal signs Oral: intubated Cardiovascular: S1, S2 normal. Respiratory: Good air entry, clear to auscultation bilaterally GI: Soft, bowel sounds hypo. Suprapubic cath + Musculoskeletal: Right AKA, left TMA stumps healed. Right gluteal region with eschar. Left femoral HD cath +. Edema + Skin: No rash or abscess Hem/Lymphatic: No palpable cervical or supraclavicular nodes. No lymphangitis Psych: no agitation Neurological: unresponsive, intubated, on vent - Constitutional Vitals: Vital Signs Temp Pulse Resp BP Pulse Ox 98.6 F 98 H 30 H 99/56 99 11/11/18 12:00 11/11/18 13:00 11/11/18 13:00 11/11/18 13:00 11/11/18 13:00 Temperature -Last 24 Hours Temperature 98.6 F Temperature 98.8 F - Labs CBC & Chem 7: 11/11/18 06:07 11/11/18 06:07 Labs: Abnormal lab results 11/10/18 11/10/18 11/11/18 Range/Units 17:48 23:51 04:45 RBC (3.65-5.03) M/mm3 Hgb (11.8-15.2) gm/dl Hct (35.5-45.6) % MCV (84-94) fl MCH (28-32) pg Lymph % (Auto) (13.4-35.0) % Lymph # (1.2-5.4) K/mm3 Seg Neutrophils % (40.0-70.0) % Seg Neuts % (Manual) (40.0-70.0) % Lymphocytes % (Manual) (13.4-35.0) % Lymphocytes # (Manual) (1.2-5.4) K/mm3 POC ABG pCO2 34.2 L (35-45) Sodium (137-145) mmol/L Potassium (3.6-5.0) mmol/L BUN (9-20) mg/dL Creatinine (0.8-1.5) mg/dL Glucose (75-100) mg/dL POC Glucose 215 H 243 H (70-105) Calcium (8.4-10.2) mg/dL Total Protein (6.3-8.2) g/dL Albumin (3.9-5) g/dL 11/11/18 11/11/18 11/11/18 Range/Units 06:05 06:07 06:07 RBC 2.27 L (3.65-5.03) M/mm3 Hgb 7.6 L (11.8-15.2) gm/dl Hct 22.6 L (35.5-45.6) % MCV 100 H (84-94) fl MCH 33 H (28-32) pg Lymph % (Auto) 10.7 L (13.4-35.0) % Lymph # 0.6 L (1.2-5.4) K/mm3 Seg Neutrophils % 81.0 H (40.0-70.0) % Seg Neuts % (Manual) 81.0 H (40.0-70.0) % Lymphocytes % (Manual) 11.0 L (13.4-35.0) % Lymphocytes # (Manual) 0.6 L (1.2-5.4) K/mm3 POC ABG pCO2 (35-45) Sodium 134 L (137-145) mmol/L Potassium 3.2 L (3.6-5.0) mmol/L BUN 58 H (9-20) mg/dL Creatinine 2.6 H (0.8-1.5) mg/dL Glucose 139 H (75-100) mg/dL POC Glucose 175 H (70-105) Calcium 7.7 L (8.4-10.2) mg/dL Total Protein 6.2 L (6.3-8.2) g/dL Albumin 1.4 L (3.9-5) g/dL
[2018-11-11] MEDS: MAXIPIME/NS 1 GM/100 ML 1 GM/100 ML BAG IV SCH (17:31)
--- NOTE | 2018-11-11 20:16 | Progress Note ---
Assessment and Plan 1. ESRD: Patient was last dialyzed 2 days ago. Patient remain hypotensive on pressors. 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 2. FEN: Hypokalemia, replete K. Hypernatremia, improved. UF with HD as tolerated. 3. Respiratory failure: On vent. 4. Septic Shock: On Levophed. 5. Pneumonia. 6. Anemia: Epogen. Subjective Date of service: 11/11/18 Principal diagnosis: sepsis, acute resp, failure. Interval history: Patient was seen and examined at the bedside. Objective - Vital Signs Vital signs: Vital Signs - 12hr 11/11/18 11/11/18 11/11/18 08:15 08:30 08:45 Temperature Pulse Rate 102 H 100 H 101 H Respiratory 32 H 33 H 33 H Rate Blood Pressure 113/53 115/53 116/53 O2 Sat by Pulse 97 97 97 Oximetry 11/11/18 11/11/18 11/11/18 09:00 09:15 09:30 Temperature Pulse Rate 102 H 101 H 101 H Respiratory 34 H 34 H 34 H Rate Blood Pressure 118/53 121/56 125/58 O2 Sat by Pulse 97 98 98 Oximetry 11/11/18 11/11/18 11/11/18 09:45 10:00 10:15 Temperature Pulse Rate 100 H 102 H 100 H Respiratory 33 H 30 H 30 H Rate Blood Pressure 113/54 106/60 106/48 O2 Sat by Pulse 98 100 99 Oximetry 11/11/18 11/11/18 11/11/18 10:30 10:45 11:00 Temperature Pulse Rate 100 H 99 H 98 H Respiratory 33 H 33 H 24 Rate Blood Pressure 110/54 102/51 107/57 O2 Sat by Pulse 98 98 98 Oximetry 11/11/18 11/11/18 11/11/18 11:15 11:30 11:45 Temperature Pulse Rate 99 H 100 H 101 H Respiratory 17 25 H 30 H Rate Blood Pressure 112/58 102/56 106/58 O2 Sat by Pulse 99 98 98 Oximetry 11/11/18 11/11/18 11/11/18 11:47 12:00 12:15 Temperature 98.6 F Pulse Rate 101 H 100 H 99 H Respiratory 28 H 25 H Rate Blood Pressure 106/58 103/54 96/55 O2 Sat by Pulse 98 99 99 Oximetry 11/11/18 11/11/18 11/11/18 12:30 12:45 13:00 Temperature Pulse Rate 99 H 98 H 98 H Respiratory 30 H 29 H 30 H Rate Blood Pressure 102/56 98/55 99/56 O2 Sat by Pulse 99 99 99 Oximetry 11/11/18 11/11/18 11/11/18 13:15 13:30 13:45 Temperature Pulse Rate 98 H 98 H 98 H Respiratory 28 H 25 H 29 H Rate Blood Pressure 98/55 92/52 99/53 O2 Sat by Pulse 99 99 99 Oximetry 11/11/18 11/11/18 11/11/18 14:00 14:15 14:30 Temperature 98.4 F Pulse Rate 98 H 97 H 97 H Respiratory 29 H 24 25 H Rate Blood Pressure 94/53 92/51 89/49 O2 Sat by Pulse 100 100 97 Oximetry 11/11/18 11/11/18 11/11/18 14:45 15:00 15:15 Temperature Pulse Rate 97 H 97 H 97 H Respiratory 27 H 25 H 21 Rate Blood Pressure 94/51 91/50 91/49 O2 Sat by Pulse 98 98 99 Oximetry 11/11/18 11/11/18 11/11/18 15:30 15:45 16:00 Temperature Pulse Rate 97 H 99 H 99 H Respiratory 28 H 26 H 28 H Rate Blood Pressure 94/51 95/50 96/50 O2 Sat by Pulse 99 99 98 Oximetry 11/11/18 11/11/18 11/11/18 16:05 16:15 16:30 Temperature Pulse Rate 100 H 99 H Respiratory 26 H 28 H Rate Blood Pressure 91/51 93/51 O2 Sat by Pulse 99 98 99 Oximetry 11/11/18 11/11/18 11/11/18 16:44 16:45 17:00 Temperature Pulse Rate 98 H 98 H 99 H Respiratory 23 27 H Rate Blood Pressure 91/50 91/50 94/51 O2 Sat by Pulse 99 98 99 Oximetry 11/11/18 11/11/18 11/11/18 17:15 17:30 17:46 Temperature Pulse Rate 98 H 99 H 97 H Respiratory 27 H 30 H 28 H Rate Blood Pressure 90/45 93/47 127/66 O2 Sat by Pulse 99 99 100 Oximetry 11/11/18 11/11/18 11/11/18 18:00 18:15 18:30 Temperature Pulse Rate 99 H 99 H 98 H Respiratory 15 30 H 32 H Rate Blood Pressure 136/62 120/62 128/60 O2 Sat by Pulse 100 100 100 Oximetry 11/11/18 11/11/18 11/11/18 18:45 19:00 19:52 Temperature 100 F H Pulse Rate 98 H 100 H Respiratory 29 H 31 H Rate Blood Pressure 125/58 111/63 O2 Sat by Pulse 99 100 Oximetry - General Appearance General appearance: well-developed, appears stated age, cachectic, intubated, other (on vent) EENT: ATNC Respiratory: Present: Clear to Ascultation Cardiology: regular, S1S2, no murmurs Gastrointestinal: normoactive bowel sounds, no tenderness, other (suprapubic catheter noted) Neurologic: obtunded Musculoskeletal: other (trace extremity edema, left TMA, R AKA, left groin hemodialysis catheter) - Lab 11/11/18 06:07 11/11/18 06:07 Most recent lab results Calcium 7.7 mg/dL (8.4-10.2) L 11/11/18 06:07 Phosphorus 3.10 mg/dL (2.5-4.5) 11/05/18 06:36 Medications & Allergies - Medications Allergies/Adverse Reactions: Allergies No Known Allergies Allergy (Verified 01/18/18 20:10) Home Medications: Home Medications Medication Instructions Recorded Confirmed Last Taken Type Acetaminophen [Acetaminophen TAB] 650 mg PO Q4H PRN 03/12/18 10/31/18 Unknown History Calcium Acetate [Phoslo] 667 mg PO TID 03/12/18 10/31/18 05/13/18 17:00 History Carvedilol [Coreg] 6.25 mg PO BID 03/12/18 10/31/18 05/13/18 09:00 History Ergocalciferol 50,000 unit PO QWEEK 03/12/18 10/31/18 05/11/18 09:00 History Apixaban [Eliquis] 2.5 mg PO BID tablet 08/21/18 10/31/18 Unknown Rx Megestrol [Megace] 400 mg PO QDAY 10/31/18 10/31/18 Unknown History Mirtazapine [Remeron] 15 mg PO QHS 10/31/18 10/31/18 Unknown History Elaine-José Rx Tablet 1 tab PO QDAY 10/31/18 10/31/18 Unknown History Sodium Bicarbonate 650 mg PO BID 10/31/18 10/31/18 Unknown History traMADol [Ultram 50 MG tab] 25 mg PO Q12H PRN 10/31/18 10/31/18 Unknown History Active Medications: Generic Name Dose Route Start Last Admin Trade Name Freq PRN Reason Stop Dose Admin Acetaminophen 650 mg 11/02/18 09:25 11/09/18 18:46 Tylenol FEEDTUBE 650 mg Q6H PRN Administration Fever >101 Lipase/Protease/Amylase 1 each 11/01/18 10:04 Pancreaze 10,500 Unit FEEDTUBE PRN PRN For Clogged Feeding Tube Epoetin [place] 20,000 unit 11/05/18 10:21 11/09/18 12:15 Procrit SUB-Q 20,000 unit ALEJO PRN Administration hemodialysis Famotidine 20 mg 11/01/18 10:00 11/11/18 09:53 Pepcid PO 20 mg DAILY KIRSTEN Administration Heparin Sodium (Porcine) 5,000 unit 10/29/18 22:00 11/11/18 14:25 Heparin SUB-Q 5,000 unit Q8HR KIRSTEN Administration Norepinephrine 4 mg in 250 mls @ 7.5 mls/hr 10/30/18 01:00 11/11/18 17:31 Levophed Drip 4 Mg/Ns 250 Ml IV 4 mcg/min TITR KIRSTEN 15 mls/hr Titration Protocol 2 MCG/MIN Sodium Chloride 100 mls @ 999 mls/hr 11/09/18 08:48 Nacl 0.9% IV ALEJO PRN Hypotension Cefepime HCl 1 gm in 100 mls @ 200 mls/hr 11/09/18 18:00 11/11/18 17:31 Maxipime/Ns 1 Gm/100 Ml IV 200 mls/hr QPM KIRSTEN Administration Protocol Insulin Human Lispro 0 unit 10/30/18 10:00 11/11/18 18:08 Humalog SUB-Q 4 unit Q6HR KIRSTEN Administration Protocol Levetiracetam 500 mg 11/07/18 10:00 11/11/18 09:53 Keppra PO 500 mg BID KIRSTEN Administration Simple Syrup 15 ml 11/01/18 10:04 11/06/18 00:09 Simple Syrup FEEDTUBE 15 ml PRN PRN Administration Hypoglycemia Simple Syrup 30 ml 11/01/18 10:04 Simple Syrup FEEDTUBE PRN PRN Hypoglycemia Sodium Bicarbonate 325 mg 11/01/18 10:04 Sodium Bicarbonate FEEDTUBE PRN PRN For Clogged Feeding Tube
[2018-11-12] MEDS: HEPARIN SUB-Q SCH ×4 (05:59→21:47)
[2018-11-12] MEDS: LEVOPHED DRIP 4 MG/NS 250 ML 4 MG/250 ML BAG IV SCH (05:59)
[2018-11-12] MEDS: HumaLOG SUB-Q SCH ×4 (06:01→18:08)
[2018-11-12 06:17] LABS: Basophils % (Auto) 0.3 % (0.0-1.8); Eosinophils % (Auto) 0.5 % (0.0-4.3); Hematocrit 22.8 % (35.5-45.6); Hemoglobin 7.4 gm/dl (11.8-15.2); Lymphocytes # (Auto) 0.5 K/mm3 (1.2-5.4); Lymphocytes % (Auto) 8.1 % (13.4-35.0); Mean Corpuscular HGB Conc 33 % (32-34); Mean Corpuscular Volume 100 fl (84-94); Monocytes # (Auto) 0.5 K/mm3 (0.0-0.8); Monocytes % (Auto) 7.9 % (0.0-7.3); Platelet Count 265 K/mm3 (140-440); Red Blood Count 2.28 M/mm3 (3.65-5.03); Red Cell Distribution Width 14.4 % (13.2-15.2)
[2018-11-12 06:30] LABS: Albumin 1.4 g/dL (3.9-5); Calcium 7.9 mg/dL (8.4-10.2)
[2018-11-12] MEDS ORDERED: NACL 0.9% 100 ML IV PRN (08:43)
--- NOTE | 2018-11-12 08:44 | Progress Note ---
Assessment and Plan 1. ESRD: Patient was last dialyzed 3 days ago. Patient remain hypotensive on pressors. 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 HD today. 2. FEN: Hypokalemia, replete K as needed. Hypernatremia, improved. UF with HD as tolerated. 3. Respiratory failure: On vent. 4. Septic Shock: On Levophed. 5. Pneumonia. 6. Anemia: Epogen. Subjective Date of service: 11/12/18 Principal diagnosis: sepsis, acute resp, failure. Interval history: Patient was seen and examined at the bedside. Objective - Vital Signs Vital signs: Vital Signs - 12hr 11/11/18 11/11/18 11/11/18 20:45 20:55 21:00 Temperature Pulse Rate 101 H 100 H 100 H Pulse Rate [ From Monitor] Respiratory 30 H 28 H 26 H Rate Blood Pressure 106/61 106/61 117/57 O2 Sat by Pulse 99 99 100 Oximetry 11/11/18 11/11/18 11/11/18 21:02 21:15 21:30 Temperature Pulse Rate 100 H 98 H 97 H Pulse Rate [ From Monitor] Respiratory 29 H 29 H 25 H Rate Blood Pressure 117/57 122/62 133/64 O2 Sat by Pulse 99 99 99 Oximetry 11/11/18 11/11/18 11/11/18 21:45 22:00 22:15 Temperature Pulse Rate 98 H 97 H 97 H Pulse Rate [ From Monitor] Respiratory 26 H 26 H 30 H Rate Blood Pressure 127/61 124/64 126/63 O2 Sat by Pulse 99 100 99 Oximetry 11/11/18 11/11/18 11/11/18 22:30 22:45 23:00 Temperature Pulse Rate 96 H 96 H 96 H Pulse Rate [ From Monitor] Respiratory 27 H 25 H 26 H Rate Blood Pressure 128/63 128/66 139/66 O2 Sat by Pulse 100 100 100 Oximetry 11/11/18 11/11/18 11/11/18 23:15 23:16 23:17 Temperature 98.1 F Pulse Rate 96 H 95 H Pulse Rate [ From Monitor] Respiratory 27 H Rate Blood Pressure 126/63 126/63 O2 Sat by Pulse 99 98 Oximetry 11/11/18 11/11/18 11/12/18 23:30 23:45 00:00 Temperature Pulse Rate 95 H 94 H 96 H Pulse Rate [ 97 H From Monitor] Respiratory 26 H 26 H 26 H Rate Blood Pressure 128/61 115/60 124/62 O2 Sat by Pulse 97 97 99 Oximetry 11/12/18 11/12/18 11/12/18 00:15 00:30 00:45 Temperature Pulse Rate 95 H 95 H 94 H Pulse Rate [ From Monitor] Respiratory 26 H 24 23 Rate Blood Pressure 103/50 104/53 110/54 O2 Sat by Pulse 99 100 100 Oximetry 11/12/18 11/12/18 11/12/18 01:00 01:15 01:30 Temperature Pulse Rate 96 H 97 H 96 H Pulse Rate [ From Monitor] Respiratory 29 H 27 H 25 H Rate Blood Pressure 100/50 103/52 109/54 O2 Sat by Pulse 100 100 100 Oximetry 11/12/18 11/12/18 11/12/18 01:45 02:00 02:15 Temperature Pulse Rate 96 H 95 H 95 H Pulse Rate [ From Monitor] Respiratory 27 H 25 H 24 Rate Blood Pressure 109/54 112/54 117/57 O2 Sat by Pulse 100 100 100 Oximetry 11/12/18 11/12/18 11/12/18 02:30 02:45 03:00 Temperature Pulse Rate 96 H 97 H 98 H Pulse Rate [ From Monitor] Respiratory 25 H 28 H 28 H Rate Blood Pressure 108/52 101/52 100/50 O2 Sat by Pulse 100 100 100 Oximetry 11/12/18 11/12/18 11/12/18 03:15 03:30 03:45 Temperature Pulse Rate 98 H 98 H 97 H Pulse Rate [ From Monitor] Respiratory 25 H 28 H 26 H Rate Blood Pressure 101/50 105/52 104/52 O2 Sat by Pulse 100 100 100 Oximetry 11/12/18 11/12/18 11/12/18 04:00 04:15 04:30 Temperature Pulse Rate 97 H 97 H 98 H Pulse Rate [ 94 H From Monitor] Respiratory 26 H 27 H 25 H Rate Blood Pressure 114/55 106/52 103/52 O2 Sat by Pulse 100 100 100 Oximetry 11/12/18 11/12/18 11/12/18 04:45 05:00 05:15 Temperature Pulse Rate 98 H 95 H 98 H Pulse Rate [ From Monitor] Respiratory 29 H 25 H 28 H Rate Blood Pressure 106/53 121/33 120/61 O2 Sat by Pulse 100 100 100 Oximetry 04/11/12/18 11/12/18 05:30 05:45 06:00 Temperature Pulse Rate 98 H 98 H 97 H Pulse Rate [ From Monitor] Respiratory 25 H 27 H 28 H Rate Blood Pressure 106/57 103/55 101/56 O2 Sat by Pulse 99 100 99 Oximetry 11/12/18 11/12/18 11/12/18 06:15 06:30 06:45 Temperature Pulse Rate 97 H 96 H 97 H Pulse Rate [ From Monitor] Respiratory 27 H 29 H 29 H Rate Blood Pressure 105/58 106/56 115/57 O2 Sat by Pulse 99 100 100 Oximetry 11/12/18 11/12/18 11/12/18 07:00 07:15 07:18 Temperature Pulse Rate 98 H 98 H 97 H Pulse Rate [ From Monitor] Respiratory 29 H 27 H 28 H Rate Blood Pressure 108/55 128/67 128/67 O2 Sat by Pulse 99 100 100 Oximetry 11/12/18 08:00 Temperature 97.2 F L Pulse Rate Pulse Rate [ From Monitor] Respiratory Rate Blood Pressure O2 Sat by Pulse Oximetry - General Appearance General appearance: well-developed, appears stated age, cachectic, intubated, other (on vent) EENT: ATNC Respiratory: Present: Clear to Ascultation Cardiology: regular, S1S2, no murmurs Gastrointestinal: normoactive bowel sounds, no tenderness, other (Suprapubic catheter noted) Neurologic: obtunded Musculoskeletal: other (trace extremity edema noted, Left groin dialysis catheter noted, R AKA, L TMA) - Lab 11/13/18 05:13 11/13/18 05:13 Most recent lab results Calcium 7.9 mg/dL (8.4-10.2) L 11/12/18 05:15 Phosphorus 3.10 mg/dL (2.5-4.5) 11/05/18 06:36 Medications & Allergies - Medications Allergies/Adverse Reactions: Allergies No Known Allergies Allergy (Verified 01/18/18 20:10) Home Medications: Home Medications Medication Instructions Recorded Confirmed Last Taken Type Acetaminophen [Acetaminophen TAB] 650 mg PO Q4H PRN 03/12/18 10/31/18 Unknown History Calcium Acetate [Phoslo] 667 mg PO TID 03/12/18 10/31/18 05/13/18 17:00 History Carvedilol [Coreg] 6.25 mg PO BID 08/13/18 04/03/19 10/14/18 09:00 History Ergocalciferol 50,000 unit PO QWEEK 03/12/18 10/31/18 05/11/18 09:00 History Apixaban [Eliquis] 2.5 mg PO BID tablet 08/21/18 10/31/18 Unknown Rx Megestrol [Megace] 400 mg PO QDAY 10/31/18 10/31/18 Unknown History Mirtazapine [Remeron] 15 mg PO QHS 10/31/18 10/31/18 Unknown History Elaine-José Rx Tablet 1 tab PO QDAY 10/31/18 10/31/18 Unknown History Sodium Bicarbonate 650 mg PO BID 10/31/18 10/31/18 Unknown History traMADol [Ultram 50 MG tab] 25 mg PO Q12H PRN 10/31/18 10/31/18 Unknown History Active Medications: Generic Name Dose Route Start Last Admin Trade Name Freq PRN Reason Stop Dose Admin Acetaminophen 650 mg 11/02/18 09:25 11/09/18 18:46 Tylenol FEEDTUBE 650 mg Q6H PRN Administration Fever >101 Lipase/Protease/Amylase 1 each 11/01/18 10:[address] 10,500 Unit FEEDTUBE PRN PRN For Clogged Feeding Tube Epoetin [place] 20,000 unit 11/05/18 10:21 11/09/18 12:15 Procrit SUB-Q 20,000 unit ALEJO PRN Administration hemodialysis Famotidine 20 mg 11/01/18 10:00 11/11/18 09:53 Pepcid PO 20 mg DAILY KIRSTEN Administration Heparin Sodium (Porcine) 5,000 unit 10/29/18 22:00 11/12/18 05:59 Heparin SUB-Q 5,000 unit Q8HR KIRSTEN Administration Norepinephrine 4 mg in 250 mls @ 7.5 mls/hr 10/30/18 01:00 11/12/18 05:59 Levophed Drip 4 Mg/Ns 250 Ml IV 4 mcg/min TITR KIRSTEN 15 mls/hr Administration Protocol 2 MCG/MIN Sodium Chloride 100 mls @ 999 mls/hr 11/09/18 08:48 Nacl 0.9% IV ALEJO PRN Hypotension Cefepime HCl 1 gm in 100 mls @ 200 mls/hr 11/09/18 18:00 11/11/18 17:31 Maxipime/Ns 1 Gm/100 Ml IV 200 mls/hr QPM KIRSTEN Administration Protocol Vancomycin HCl 500 mg/ Sodium 110 mls @ 66.667 mls/hr 11/12/18 22:00 Chloride IV MoWeFr KIRSTEN Insulin Human Lispro 0 unit 10/30/18 10:00 11/12/18 06:01 Humalog SUB-Q 1 unit Q6HR KIRSTEN Administration Protocol Levetiracetam 500 mg 11/07/18 10:00 11/11/18 21:17 Keppra PO 500 mg BID KIRSTEN Administration Simple Syrup 15 ml 11/01/18 10:04 11/06/18 00:09 Simple Syrup FEEDTUBE 15 ml PRN PRN Administration Hypoglycemia Simple Syrup 30 ml 11/01/18 10:04 Simple Syrup FEEDTUBE PRN PRN Hypoglycemia Sodium Bicarbonate 325 mg 11/01/18 10:04 Sodium Bicarbonate FEEDTUBE PRN PRN For Clogged Feeding Tube
[2018-11-12] MEDS: KEPPRA PO SCH ×2 (09:14→21:47)
[2018-11-12] MEDS: PEPCID PO SCH (09:14)
--- NOTE | 2018-11-12 10:11 | Progress Note ---
Assessment and Plan -s/p PEA arrest -Severe sepsis with septic shock -Fevers, Tracheal aspirate positive for MRSA -Acute hypoxic respiratory failure on MVS -Acute encephalopathy( toxic, metabolic) -Severe protein calorie malnutrition -Hyperkalemia( resolved) -ESRD on HD, clotted graft s/p femoral HD catheter -Hyperosmolar hyperglycemic state( improving) -Hypotension, multifactorial -Hypernatremia, resolved, now hyponatremic -PVD s/p right BKA -Prostate cancer s/p suprapubic catheter With family wanting on going aggressive care, will place Surgery consult for trach and PEG placement -Continue with MVS -Lung protective strategies -VAP bundle addressed. -Supplemental oxygen, wean for O2 sats>90% -Daily SBTs as tolerated -VTE prophylaxis( heparin) -Stress ulcer prophylaxis( Famotidine) -High dose sliding scale insulin with accuchecks -Tube feedings with aspiration precautions -Glycemic control, target blood glucose of 140-180mg/dL -Free water flushes, decrease for hyponatremia - Continue wound care by wound care team -Supportive PSYCH RN -Wean vasopressor support for MAP>65 -ABG and CXR in am -Serial BMP to monitor sodium levels CONDITION: CRITICAL PROGNOSIS: POOR CODE STATUS: DNAR I have spent 31 minutes in the direct care of this critically ill patient, excluding procedure time. Critical care time was spent on this patient and during his initial evaluation, multiple re-evaluations, ordering and interpretation of labs and imaging, medications, discussion with the ICU care team. There is a high probability of clinically significant, sudden, or life-threatening deterioration that has required multiple evaluations and direct attention, intervention, and management. Subjective Date of service: 11/12/18 Principal diagnosis: sepsis, acute resp, failure. Interval history: Patient is seen today for: Acute hypoxemic respiratory failure on MVS; Severe sepsis with septic shock; acute encephaloapthy; Seen and examined at bedside; 24hour events reviewed; nursing and respiratory care staff consulted; No fevers overnight, remains on norepinephrine for hemodynamic support, no vomiting Remains unresponsive, on mechanical ventilatory support, no dys-synchrony Needs evaluation for trach and PEG Discussed in ICU-IDT rounds Objective - Exam Narrative Exam: Physical Exam: Constitutional: unresponsive. on mechanical ventilatory support Head, Ears, Nose: Normocephalic, atraumatic. External ears, nose normal. Eyes: Conjunctivae/corneas clear. No icterus. No ptosis. Neck: trach + Cardiovascular: S1, S2 normal. Respiratory: Good air entry, clear to auscultation bilaterally GI: Soft, bowel sounds +. PEG + Suprapubic catheter + Musculoskeletal: Right AKA, left TMA stumps healed. Right gluteal region with eschar. Left femoral trialysis cath +. Edema + Skin: No rash or abscess Hem/Lymphatic: No palpable cervical or supraclavicular nodes. No lymphangitis Psych: no agitation Neurological: unresponsive, intubated, on vent. Vital Signs - 12hr 11/11/18 11/11/18 11/11/18 22:15 22:30 22:45 Temperature Pulse Rate 97 H 96 H 96 H Pulse Rate [ From Monitor] Respiratory 30 H 27 H 25 H Rate Blood Pressure 126/63 128/63 128/66 O2 Sat by Pulse 99 100 100 Oximetry 11/11/18 11/11/18 11/11/18 23:00 23:15 23:16 Temperature 98.1 F Pulse Rate 96 H 96 H Pulse Rate [ From Monitor] Respiratory 26 H 27 H Rate Blood Pressure 139/66 126/63 O2 Sat by Pulse 100 99 Oximetry 11/11/18 11/11/18 11/11/18 23:17 23:30 23:45 Temperature Pulse Rate 95 H 95 H 94 H Pulse Rate [ From Monitor] Respiratory 26 H 26 H Rate Blood Pressure 126/63 128/61 115/60 O2 Sat by Pulse 98 97 97 Oximetry 11/12/18 11/12/18 11/12/18 00:00 00:15 00:30 Temperature Pulse Rate 96 H 95 H 95 H Pulse Rate [ 97 H From Monitor] Respiratory 26 H 26 H 24 Rate Blood Pressure 124/62 103/50 104/53 O2 Sat by Pulse 99 99 100 Oximetry 11/12/18 11/12/18 11/12/18 00:45 01:00 01:15 Temperature Pulse Rate 94 H 96 H 97 H Pulse Rate [ From Monitor] Respiratory 23 29 H 27 H Rate Blood Pressure 110/54 100/50 103/52 O2 Sat by Pulse 100 100 100 Oximetry 11/12/18 11/12/18 11/12/18 01:30 01:45 02:00 Temperature Pulse Rate 96 H 96 H 95 H Pulse Rate [ From Monitor] Respiratory 25 H 27 H 25 H Rate Blood Pressure 109/54 109/54 112/54 O2 Sat by Pulse 100 100 100 Oximetry 11/12/18 11/12/18 11/12/18 02:15 02:30 02:45 Temperature Pulse Rate 95 H 96 H 97 H Pulse Rate [ From Monitor] Respiratory 24 25 H 28 H Rate Blood Pressure 117/57 108/52 101/52 O2 Sat by Pulse 100 100 100 Oximetry 11/12/18 11/12/18 11/12/18 03:00 03:15 03:30 Temperature Pulse Rate 98 H 98 H 98 H Pulse Rate [ From Monitor] Respiratory 28 H 25 H 28 H Rate Blood Pressure 100/50 101/50 105/52 O2 Sat by Pulse 100 100 100 Oximetry 11/12/18 11/12/18 11/12/18 03:45 04:00 04:15 Temperature Pulse Rate 97 H 97 H 97 H Pulse Rate [ 94 H From Monitor] Respiratory 26 H 26 H 27 H Rate Blood Pressure 104/52 114/55 106/52 O2 Sat by Pulse 100 100 100 Oximetry 11/12/18 11/12/18 11/12/18 04:30 04:45 05:00 Temperature Pulse Rate 98 H 98 H 95 H Pulse Rate [ From Monitor] Respiratory 25 H 29 H 25 H Rate Blood Pressure 103/52 106/53 121/33 O2 Sat by Pulse 100 100 100 Oximetry 11/12/18 11/12/18 11/12/18 05:15 05:30 05:45 Temperature Pulse Rate 98 H 98 H 98 H Pulse Rate [ From Monitor] Respiratory 28 H 25 H 27 H Rate Blood Pressure 120/61 106/57 103/55 O2 Sat by Pulse 100 99 100 Oximetry 11/12/18 11/12/18 11/12/18 06:00 06:15 06:30 Temperature Pulse Rate 97 H 97 H 96 H Pulse Rate [ From Monitor] Respiratory 28 H 27 H 29 H Rate Blood Pressure 101/56 105/58 106/56 O2 Sat by Pulse 99 99 100 Oximetry 11/12/18 11/12/18 11/12/18 06:45 07:00 07:15 Temperature Pulse Rate 97 H 98 H 98 H Pulse Rate [ From Monitor] Respiratory 29 H 29 H 27 H Rate Blood Pressure 115/57 108/55 128/67 O2 Sat by Pulse 100 99 100 Oximetry 11/12/18 11/12/18 07:18 08:00 Temperature 97.2 F L Pulse Rate 97 H Pulse Rate [ From Monitor] Respiratory 28 H Rate Blood Pressure 128/67 O2 Sat by Pulse 100 Oximetry CBC and BMP: 11/16/18 05:45 11/16/18 05:45 ABG, PT/INR, D-dimer: ABG POC ABG pH 7.403 (7.35-7.45) 11/12/18 04:35 POC ABG pCO2 31.1 (35-45) L 11/12/18 04:35 POC ABG pO2 82 (80-105) 11/12/18 04:35 POC ABG HCO3 19.4 (22-26 mml/L) 11/12/18 04:35 POC ABG Total CO2 20 (23-27mmol/L) 11/12/18 04:35 POC ABG O2 Sat 96 11/12/18 04:35 PT/INR, D-dimer PT 15.8 Sec. (12.2-14.9) H 11/08/18 07:09 INR 1.18 (0.87-1.13) H 11/08/18 07:09 Abnormal lab findings: Abnormal Labs 10/29/18 10/29/18 10/29/18 17:13 17:13 17:13 RBC 3.62 L Hgb Hct MCV 102 H MCH 34 H RDW 19.6 H Plt Count Lymph % (Auto) Charles % (Auto) 7.8 H Lymph # Seg Neutrophils % 71.2 H Seg Neuts % (Manual) Lymphocytes % (Manual) Monocytes % (Manual) Seg Neutrophils # Lymphocytes # (Manual) PT INR POC ABG pH POC ABG pCO2 POC ABG pO2 Sodium 164 H* Potassium 6.2 H* Chloride 127.5 H Carbon Dioxide BUN 178 H Creatinine 4.2 H Glucose 131 H POC Glucose Calcium 10.7 H AST C-Reactive Protein Total Protein 9.5 H Albumin 2.6 L TSH 5.310 H Urine pH Urine WBC (Auto) Vancomycin Trough 10/29/18 10/30/18 10/30/18 23:57 00:06 04:35 RBC Hgb Hct MCV MCH RDW Plt Count Lymph % (Auto) Charles % (Auto) Lymph # Seg Neutrophils % Seg Neuts % (Manual) Lymphocytes % (Manual) Monocytes % (Manual) Seg Neutrophils # Lymphocytes # (Manual) PT INR POC ABG pH 7.488 H POC ABG pCO2 32.1 L 34.9 L POC ABG pO2 144 H Sodium Potassium Chloride Carbon Dioxide BUN Creatinine Glucose POC Glucose 131 H Calcium AST C-Reactive Protein Total Protein Albumin TSH Urine pH Urine WBC (Auto) Vancomycin Trough 10/30/18 10/30/18 10/30/18 05:13 08:54 08:54 RBC 3.56 L Hgb 11.7 L Hct MCV 102 H MCH 33 H RDW 19.2 H Plt Count Lymph % (Auto) Charles % (Auto) Lymph # Seg Neutrophils % Seg Neuts % (Manual) Lymphocytes % (Manual) Monocytes % (Manual) Seg Neutrophils # Lymphocytes # (Manual) PT INR POC ABG pH POC ABG pCO2 POC ABG pO2 Sodium Potassium Chloride Carbon Dioxide BUN Creatinine Glucose POC Glucose 316 H Calcium AST C-Reactive Protein 5.20 H Total Protein Albumin 2.2 L TSH Urine pH Urine WBC (Auto) Vancomycin Trough 10/30/18 10/30/18 10/30/18 08:59 12:03 18:30 RBC Hgb Hct MCV MCH RDW Plt Count Lymph % (Auto) Charles % (Auto) Lymph # Seg Neutrophils % Seg Neuts % (Manual) Lymphocytes % (Manual) Monocytes % (Manual) Seg Neutrophils # Lymphocytes # (Manual) PT INR POC ABG pH POC ABG pCO2 POC ABG pO2 Sodium 146 H D Potassium Chloride Carbon Dioxide BUN 86 H Creatinine 2.7 H Glucose 262 H POC Glucose 232 H 57 L Calcium AST C-Reactive Protein Total Protein Albumin TSH Urine pH Urine WBC (Auto) Vancomycin Trough 10/30/18 10/30/18 10/30/18 18:39 19:07 19:42 RBC Hgb Hct MCV MCH RDW Plt Count Lymph % (Auto) Charles % (Auto) Lymph # Seg Neutrophils % Seg Neuts % (Manual) Lymphocytes % (Manual) Monocytes % (Manual) Seg Neutrophils # Lymphocytes # (Manual) PT INR POC ABG pH POC ABG pCO2 POC ABG pO2 Sodium Potassium Chloride Carbon Dioxide BUN Creatinine Glucose POC Glucose < 40 L 51 L Calcium AST C-Reactive Protein Total Protein Albumin TSH Urine pH 8.0 H Urine WBC (Auto) > 182.0 H Vancomycin Trough 10/30/18 10/30/18 10/30/18 19:51 23:13 23:20 RBC Hgb Hct MCV MCH RDW Plt Count Lymph % (Auto) Charles % (Auto) Lymph # Seg Neutrophils % Seg Neuts % (Manual) Lymphocytes % (Manual) Monocytes % (Manual) Seg Neutrophils # Lymphocytes # (Manual) PT INR POC ABG pH POC ABG pCO2 POC ABG pO2 Sodium Potassium Chloride 108.5 H Carbon Dioxide 21 L BUN 96 H Creatinine 3.0 H Glucose 865 H* 150 H POC Glucose 152 H Calcium AST C-Reactive Protein Total Protein Albumin TSH Urine pH Urine WBC (Auto) Vancomycin Trough 10/30/18 10/31/18 10/31/18 23:40 04:43 04:43 RBC Hgb Hct MCV 100 H MCH 33 H RDW 18.1 H Plt Count Lymph % (Auto) Charles % (Auto) Lymph # Seg Neutrophils % Seg Neuts % (Manual) Lymphocytes % (Manual) 4.0 L Monocytes % (Manual) Seg Neutrophils # Lymphocytes # (Manual) 0.3 L PT INR POC ABG pH POC ABG pCO2 POC ABG pO2 Sodium Potassium Chloride Carbon Dioxide 19 L BUN 98 H Creatinine 3.2 H Glucose 184 H POC Glucose 145 H Calcium AST C-Reactive Protein Total Protein Albumin TSH Urine pH Urine WBC (Auto) Vancomycin Trough 10/31/18 10/31/18 10/31/18 05:44 11:44 13:19 RBC Hgb Hct MCV MCH RDW Plt Count Lymph % (Auto) Charles % (Auto) Lymph # Seg Neutrophils % Seg Neuts % (Manual) Lymphocytes % (Manual) Monocytes % (Manual) Seg Neutrophils # Lymphocytes # (Manual) PT INR POC ABG pH POC ABG pCO2 POC ABG pO2 64 L Sodium Potassium Chloride Carbon Dioxide BUN Creatinine Glucose POC Glucose 142 H 196 H Calcium AST C-Reactive Protein Total Protein Albumin TSH Urine pH Urine WBC (Auto) Vancomycin Trough 10/31/18 11/01/18 11/01/18 17:36 04:07 04:07 RBC 3.40 L Hgb 11.2 L Hct 33.6 L MCV 99 H MCH 33 H RDW 17.5 H Plt Count Lymph % (Auto) Charles % (Auto) Lymph # Seg Neutrophils % Seg Neuts % (Manual) 80.0 H Lymphocytes % (Manual) 4.0 L Monocytes % (Manual) Seg Neutrophils # Lymphocytes # (Manual) 0.3 L PT INR POC ABG pH POC ABG pCO2 POC ABG pO2 Sodium Potassium Chloride Carbon Dioxide 19 L BUN 108 H Creatinine 3.9 H Glucose 138 H POC Glucose 174 H Calcium 7.9 L AST C-Reactive Protein Total Protein Albumin TSH Urine pH Urine WBC (Auto) Vancomycin Trough 11/01/18 11/01/18 11/01/18 05:24 05:36 13:09 RBC Hgb Hct MCV MCH RDW Plt Count Lymph % (Auto) Charles % (Auto) Lymph # Seg Neutrophils % Seg Neuts % (Manual) Lymphocytes % (Manual) Monocytes % (Manual) Seg Neutrophils # Lymphocytes # (Manual) PT INR POC ABG pH POC ABG pCO2 POC ABG pO2 65 L Sodium Potassium Chloride Carbon Dioxide BUN Creatinine Glucose POC Glucose 153 H 249 H Calcium AST C-Reactive Protein Total Protein Albumin TSH Urine pH Urine WBC (Auto) Vancomycin Trough 11/01/18 11/02/18 11/02/18 18:11 05:04 07:17 RBC 3.08 L Hgb 10.1 L Hct 30.1 L MCV 98 H MCH 33 H RDW 16.7 H Plt Count Lymph % (Auto) Charles % (Auto) Lymph # Seg Neutrophils % Seg Neuts % (Manual) 92.0 H Lymphocytes % (Manual) 3.0 L Monocytes % (Manual) Seg Neutrophils # Lymphocytes # (Manual) 0.2 L PT INR POC ABG pH POC ABG pCO2 POC ABG pO2 Sodium Potassium Chloride Carbon Dioxide BUN Creatinine Glucose POC Glucose 175 H 118 H Calcium AST C-Reactive Protein Total Protein Albumin TSH Urine pH Urine WBC (Auto) Vancomycin Trough 11/02/18 11/02/18 11/02/18 07:54 09:32 12:28 RBC Hgb Hct MCV MCH RDW Plt Count Lymph % (Auto) Charles % (Auto) Lymph # Seg Neutrophils % Seg Neuts % (Manual) Lymphocytes % (Manual) Monocytes % (Manual) Seg Neutrophils # Lymphocytes # (Manual) PT INR POC ABG pH 7.514 H POC ABG pCO2 POC ABG pO2 70 L Sodium 135 L Potassium Chloride Carbon Dioxide BUN 48 H Creatinine 2.2 H Glucose 170 H POC Glucose 242 H Calcium 7.4 L AST C-Reactive Protein Total Protein Albumin TSH Urine pH Urine WBC (Auto) Vancomycin Trough 11/02/18 11/03/18 11/03/18 23:32 04:34 05:10 RBC 2.87 L Hgb 9.4 L Hct 28.5 L MCV 99 H MCH 33 H RDW 16.7 H Plt Count Lymph % (Auto) Charles % (Auto) Lymph # Seg Neutrophils % Seg Neuts % (Manual) 91.0 H Lymphocytes % (Manual) 4.0 L Monocytes % (Manual) Seg Neutrophils # Lymphocytes # (Manual) 0.3 L PT INR POC ABG pH POC ABG pCO2 33.2 L POC ABG pO2 76 L Sodium Potassium Chloride Carbon Dioxide BUN Creatinine Glucose POC Glucose 177 H Calcium AST C-Reactive Protein Total Protein Albumin TSH Urine pH Urine WBC (Auto) Vancomycin Trough 11/03/18 11/03/18 11/03/18 06:04 12:26 18:43 RBC Hgb Hct MCV MCH RDW Plt Count Lymph % (Auto) Charles % (Auto) Lymph # Seg Neutrophils % Seg Neuts % (Manual) Lymphocytes % (Manual) Monocytes % (Manual) Seg Neutrophils # Lymphocytes # (Manual) PT INR POC ABG pH POC ABG pCO2 POC ABG pO2 Sodium Potassium Chloride Carbon Dioxide BUN Creatinine Glucose POC Glucose 168 H 196 H 153 H Calcium AST C-Reactive Protein Total Protein Albumin TSH Urine pH Urine WBC (Auto) Vancomycin Trough 11/03/18 11/04/18 11/04/18 23:34 03:50 05:05 RBC 2.74 L Hgb 9.1 L Hct 27.3 L MCV 99 H MCH 33 H RDW 16.5 H Plt Count Lymph % (Auto) Charles % (Auto) Lymph # Seg Neutrophils % Seg Neuts % (Manual) 87.0 H Lymphocytes % (Manual) 7.0 L Monocytes % (Manual) Seg Neutrophils # Lymphocytes # (Manual) 0.5 L PT INR POC ABG pH POC ABG pCO2 31.7 L POC ABG pO2 74 L Sodium Potassium Chloride Carbon Dioxide BUN Creatinine Glucose POC Glucose 213 H Calcium AST C-Reactive Protein Total Protein Albumin TSH Urine pH Urine WBC (Auto) Vancomycin Trough 11/04/18 11/04/18 11/04/18 05:05 05:23 12:26 RBC Hgb Hct MCV MCH RDW Plt Count Lymph % (Auto) Charles % (Auto) Lymph # Seg Neutrophils % Seg Neuts % (Manual) Lymphocytes % (Manual) Monocytes % (Manual) Seg Neutrophils # Lymphocytes # (Manual) PT INR POC ABG pH POC ABG pCO2 POC ABG pO2 Sodium Potassium Chloride Carbon Dioxide BUN 84 H Creatinine 3.3 H Glucose 177 H POC Glucose 196 H 182 H Calcium 7.6 L AST C-Reactive Protein Total Protein Albumin TSH Urine pH Urine WBC (Auto) Vancomycin Trough 11/04/18 11/04/18 11/05/18 13:25 22:36 05:07 RBC Hgb Hct MCV MCH RDW Plt Count Lymph % (Auto) Charles % (Auto) Lymph # Seg Neutrophils % Seg Neuts % (Manual) Lymphocytes % (Manual) Monocytes % (Manual) Seg Neutrophils # Lymphocytes # (Manual) PT INR POC ABG pH POC ABG pCO2 30.1 L POC ABG pO2 63 L Sodium Potassium Chloride Carbon Dioxide BUN Creatinine Glucose POC Glucose 159 H Calcium AST C-Reactive Protein Total Protein Albumin TSH Urine pH Urine WBC (Auto) Vancomycin Trough 4.4 L 11/05/18 11/05/18 11/05/18 05:42 06:36 12:54 RBC Hgb Hct MCV MCH RDW Plt Count Lymph % (Auto) Charles % (Auto) Lymph # Seg Neutrophils % Seg Neuts % (Manual) Lymphocytes % (Manual) Monocytes % (Manual) Seg Neutrophils # Lymphocytes # (Manual) PT INR POC ABG pH POC ABG pCO2 POC ABG pO2 Sodium 134 L Potassium 3.4 L Chloride Carbon Dioxide 18 L BUN 93 H Creatinine 3.7 H Glucose 230 H POC Glucose 233 H 237 H Calcium 7.8 L AST C-Reactive Protein Total Protein Albumin TSH Urine pH Urine WBC (Auto) Vancomycin Trough 11/05/18 11/05/18 11/06/18 19:36 23:35 01:59 RBC Hgb Hct MCV MCH RDW Plt Count Lymph % (Auto) Charles % (Auto) Lymph # Seg Neutrophils % Seg Neuts % (Manual) Lymphocytes % (Manual) Monocytes % (Manual) Seg Neutrophils # Lymphocytes # (Manual) PT INR POC ABG pH POC ABG pCO2 POC ABG pO2 Sodium Potassium Chloride Carbon Dioxide BUN Creatinine Glucose POC Glucose 174 H 56 L 112 H Calcium AST C-Reactive Protein Total Protein Albumin TSH Urine pH Urine WBC (Auto) Vancomycin Trough 11/06/18 11/06/18 11/06/18 04:33 05:06 07:24 RBC 2.83 L Hgb 9.3 L Hct 27.9 L MCV 99 H MCH 33 H RDW 15.9 H Plt Count 133 L Lymph % (Auto) Charles % (Auto) Lymph # Seg Neutrophils % Seg Neuts % (Manual) 94.0 H Lymphocytes % (Manual) 4.0 L Monocytes % (Manual) Seg Neutrophils # Lymphocytes # (Manual) 0.3 L PT INR POC ABG pH POC ABG pCO2 32.4 L POC ABG pO2 73 L Sodium Potassium Chloride Carbon Dioxide BUN Creatinine Glucose POC Glucose 139 H Calcium AST C-Reactive Protein Total Protein Albumin TSH Urine pH Urine WBC (Auto) Vancomycin Trough 11/06/18 11/06/18 11/06/18 07:24 11:52 17:16 RBC Hgb Hct MCV MCH RDW Plt Count Lymph % (Auto) Charles % (Auto) Lymph # Seg Neutrophils % Seg Neuts % (Manual) Lymphocytes % (Manual) Monocytes % (Manual) Seg Neutrophils # Lymphocytes # (Manual) PT INR POC ABG pH POC ABG pCO2 POC ABG pO2 Sodium 136 L Potassium 3.2 L Chloride Carbon Dioxide BUN 59 H Creatinine 2.3 H Glucose 137 H POC Glucose 212 H 194 H Calcium 7.4 L AST C-Reactive Protein Total Protein Albumin TSH Urine pH Urine WBC (Auto) Vancomycin Trough 11/07/18 11/07/18 11/07/18 00:44 05:56 06:12 RBC 2.64 L Hgb 8.7 L Hct 26.3 L MCV 100 H MCH 33 H RDW 15.7 H Plt Count Lymph % (Auto) 4.6 L Charles % (Auto) Lymph # 0.4 L Seg Neutrophils % 89.4 H Seg Neuts % (Manual) Lymphocytes % (Manual) Monocytes % (Manual) Seg Neutrophils # 8.3 H Lymphocytes # (Manual) PT INR POC ABG pH POC ABG pCO2 POC ABG pO2 Sodium Potassium Chloride Carbon Dioxide BUN Creatinine Glucose POC Glucose 193 H 145 H Calcium AST C-Reactive Protein Total Protein Albumin TSH Urine pH Urine WBC (Auto) Vancomycin Trough 11/07/18 11/07/18 11/07/18 06:12 12:20 17:27 RBC Hgb Hct MCV MCH RDW Plt Count Lymph % (Auto) Charles % (Auto) Lymph # Seg Neutrophils % Seg Neuts % (Manual) Lymphocytes % (Manual) Monocytes % (Manual) Seg Neutrophils # Lymphocytes # (Manual) PT INR POC ABG pH POC ABG pCO2 POC ABG pO2 Sodium Potassium Chloride Carbon Dioxide BUN 74 H Creatinine 2.8 H Glucose 143 H POC Glucose 207 H 170 H Calcium 7.7 L AST C-Reactive Protein Total Protein Albumin TSH Urine pH Urine WBC (Auto) Vancomycin Trough 11/07/18 11/08/18 11/08/18 23:40 06:04 07:09 RBC Hgb Hct MCV MCH RDW Plt Count Lymph % (Auto) Charles % (Auto) Lymph # Seg Neutrophils % Seg Neuts % (Manual) Lymphocytes % (Manual) Monocytes % (Manual) Seg Neutrophils # Lymphocytes # (Manual) PT 15.8 H INR 1.18 H POC ABG pH POC ABG pCO2 POC ABG pO2 Sodium Potassium Chloride Carbon Dioxide BUN Creatinine Glucose POC Glucose 188 H 170 H Calcium AST C-Reactive Protein Total Protein Albumin TSH Urine pH Urine WBC (Auto) Vancomycin Trough 11/08/18 11/08/18 11/08/18 11:21 18:29 23:10 RBC Hgb Hct MCV MCH RDW Plt Count Lymph % (Auto) Charles % (Auto) Lymph # Seg Neutrophils % Seg Neuts % (Manual) Lymphocytes % (Manual) Monocytes % (Manual) Seg Neutrophils # Lymphocytes # (Manual) PT INR POC ABG pH POC ABG pCO2 POC ABG pO2 Sodium Potassium Chloride Carbon Dioxide BUN Creatinine Glucose POC Glucose 191 H 224 H 197 H Calcium AST C-Reactive Protein Total Protein Albumin TSH Urine pH Urine WBC (Auto) Vancomycin Trough 11/09/18 11/09/18 11/09/18 04:59 07:35 07:35 RBC 2.51 L Hgb 8.3 L Hct 25.3 L MCV 101 H MCH 33 H RDW Plt Count Lymph % (Auto) Charles % (Auto) Lymph # Seg Neutrophils % Seg Neuts % (Manual) 79.0 H Lymphocytes % (Manual) 8.0 L Monocytes % (Manual) 9.0 H Seg Neutrophils # Lymphocytes # (Manual) 0.6 L PT INR POC ABG pH POC ABG pCO2 POC ABG pO2 Sodium 133 L Potassium 3.5 L Chloride Carbon Dioxide BUN 54 H Creatinine 2.4 H Glucose 166 H POC Glucose 173 H Calcium 8.0 L AST C-Reactive Protein Total Protein Albumin TSH Urine pH Urine WBC (Auto) Vancomycin Trough 11/09/18 11/09/18 11/09/18 11:47 15:17 17:15 RBC Hgb Hct MCV MCH RDW Plt Count Lymph % (Auto) Charles % (Auto) Lymph # Seg Neutrophils % Seg Neuts % (Manual) Lymphocytes % (Manual) Monocytes % (Manual) Seg Neutrophils # Lymphocytes # (Manual) PT INR POC ABG pH POC ABG pCO2 POC ABG pO2 75 L Sodium Potassium Chloride Carbon Dioxide BUN Creatinine Glucose POC Glucose 226 H 202 H Calcium AST C-Reactive Protein Total Protein Albumin TSH Urine pH Urine WBC (Auto) Vancomycin Trough 11/10/18 11/10/18 11/10/18 00:04 04:34 04:34 RBC 2.36 L Hgb 7.8 L Hct 24.1 L MCV 102 H MCH 33 H RDW Plt Count Lymph % (Auto) Charles % (Auto) Lymph # Seg Neutrophils % Seg Neuts % (Manual) 82.0 H Lymphocytes % (Manual) 6.0 L Monocytes % (Manual) Seg Neutrophils # Lymphocytes # (Manual) 0.3 L PT INR POC ABG pH POC ABG pCO2 POC ABG pO2 Sodium 136 L Potassium 3.2 L Chloride Carbon Dioxide BUN 39 H Creatinine 2.0 H Glucose 152 H POC Glucose 197 H Calcium 8.3 L AST C-Reactive Protein Total Protein 6.0 L Albumin 1.4 L TSH Urine pH Urine WBC (Auto) Vancomycin Trough 11/10/18 11/10/18 11/10/18 05:12 12:01 17:48 RBC Hgb Hct MCV MCH RDW Plt Count Lymph % (Auto) Charles % (Auto) Lymph # Seg Neutrophils % Seg Neuts % (Manual) Lymphocytes % (Manual) Monocytes % (Manual) Seg Neutrophils # Lymphocytes # (Manual) PT INR POC ABG pH POC ABG pCO2 POC ABG pO2 Sodium Potassium Chloride Carbon Dioxide BUN Creatinine Glucose POC Glucose 163 H 139 H 215 H Calcium AST C-Reactive Protein Total Protein Albumin TSH Urine pH Urine WBC (Auto) Vancomycin Trough 11/10/18 11/11/18 11/11/18 23:51 04:45 06:05 RBC Hgb Hct MCV MCH RDW Plt Count Lymph % (Auto) Charles % (Auto) Lymph # Seg Neutrophils % Seg Neuts % (Manual) Lymphocytes % (Manual) Monocytes % (Manual) Seg Neutrophils # Lymphocytes # (Manual) PT INR POC ABG pH POC ABG pCO2 34.2 L POC ABG pO2 Sodium Potassium Chloride Carbon Dioxide BUN Creatinine Glucose POC Glucose 243 H 175 H Calcium AST C-Reactive Protein Total Protein Albumin TSH Urine pH Urine WBC (Auto) Vancomycin Trough 11/11/18 11/11/18 11/11/18 06:07 06:07 18:06 RBC 2.27 L Hgb 7.6 L Hct 22.6 L MCV 100 H MCH 33 H RDW Plt Count Lymph % (Auto) 10.7 L Charles % (Auto) Lymph # 0.6 L Seg Neutrophils % 81.0 H Seg Neuts % (Manual) 81.0 H Lymphocytes % (Manual) 11.0 L Monocytes % (Manual) Seg Neutrophils # Lymphocytes # (Manual) 0.6 L PT INR POC ABG pH POC ABG pCO2 POC ABG pO2 Sodium 134 L Potassium 3.2 L Chloride Carbon Dioxide BUN 58 H Creatinine 2.6 H Glucose 139 H POC Glucose 209 H Calcium 7.7 L AST C-Reactive Protein Total Protein 6.2 L Albumin 1.4 L TSH Urine pH Urine WBC (Auto) Vancomycin Trough 11/11/18 11/12/18 11/12/18 23:59 04:35 05:15 RBC 2.28 L Hgb 7.4 L Hct 22.8 L MCV 100 H MCH 33 H RDW Plt Count Lymph % (Auto) 8.1 L Charles % (Auto) 7.9 H Lymph # 0.5 L Seg Neutrophils % 83.2 H Seg Neuts % (Manual) Lymphocytes % (Manual) Monocytes % (Manual) Seg Neutrophils # Lymphocytes # (Manual) PT INR POC ABG pH POC ABG pCO2 31.1 L POC ABG pO2 Sodium Potassium Chloride Carbon Dioxide BUN Creatinine Glucose POC Glucose 143 H Calcium AST C-Reactive Protein Total Protein Albumin TSH Urine pH Urine WBC (Auto) Vancomycin Trough 11/12/18 11/12/18 05:15 05:29 RBC Hgb Hct MCV MCH RDW Plt Count Lymph % (Auto) Charles % (Auto) Lymph # Seg Neutrophils % Seg Neuts % (Manual) Lymphocytes % (Manual) Monocytes % (Manual) Seg Neutrophils # Lymphocytes # (Manual) PT INR POC ABG pH POC ABG pCO2 POC ABG pO2 Sodium 133 L Potassium Chloride Carbon Dioxide 21 L BUN 70 H Creatinine 2.8 H Glucose 165 H POC Glucose 186 H Calcium 7.9 L AST 81 H C-Reactive Protein Total Protein 5.9 L Albumin 1.4 L TSH Urine pH Urine WBC (Auto) Vancomycin Trough Chest x-ray: image reviewed
--- NOTE | 2018-11-12 11:00 | Consultation ---
History of Present Illness Consult date: 11/12/18 Reason for consult: other (trach/PEG eval) Requesting physician: JESSICA MILLS Chief complaint: respiratory failure - History of present illness History of present illness: 73yo M with prostate cancer and ESRD is currently on the ventilator in the ICU and unable to wean from the vent. Pt coded when he was in dialysis. We are being asked to evaluate for trach/PEG. Chart. Reviewed. Spoke with staff. Pt unable to participate in interview as he is unresponsive. Pt has mutiple medical problems including DM and PVD. Past History Past Medical History: cancer, diabetes, DVT Past Surgical History: Other (LE amputation.) Social history: no significant social history Family history: no significant family history Medications and Allergies Allergies Allergy/AdvReac Type Severity Reaction Status Date / Time No Known Allergies Allergy Verified 01/18/18 20:10 Home Medications Medication Instructions Recorded Confirmed Last Taken Type Acetaminophen [Acetaminophen TAB] 650 mg PO Q4H PRN 03/12/18 10/31/18 Unknown History Calcium Acetate [Phoslo] 667 mg PO TID 03/12/18 10/31/18 05/13/18 17:00 History Carvedilol [Coreg] 6.25 mg PO BID 03/12/18 10/31/18 05/13/18 09:00 History Ergocalciferol 50,000 unit PO QWEEK 03/12/18 10/31/18 05/11/18 09:00 History Apixaban [Eliquis] 2.5 mg PO BID tablet 08/21/18 10/31/18 Unknown Rx Megestrol [Megace] 400 mg PO QDAY 10/31/18 10/31/18 Unknown History Mirtazapine [Remeron] 15 mg PO QHS 10/31/18 10/31/18 Unknown History Elaine-José Rx Tablet 1 tab PO QDAY 10/31/18 10/31/18 Unknown History Sodium Bicarbonate 650 mg PO BID 10/31/18 10/31/18 Unknown History traMADol [Ultram 50 MG tab] 25 mg PO Q12H PRN 10/31/18 10/31/18 Unknown History Active Meds: Active Medications Acetaminophen (Tylenol) 650 mg FEEDTUBE Q6H PRN PRN Reason: Fever >101 Last Admin: 11/09/18 18:46 Dose: 650 mg Documented by: Lipase/Protease/Amylase (Pancreaze Dr 10,500 Unit) 1 each FEEDTUBE PRN PRN PRN Reason: For Clogged Feeding Tube Epoetin Cliff (Procrit) 20,000 unit SUB-Q ALEJO PRN PRN Reason: hemodialysis Last Admin: 11/09/18 12:15 Dose: 20,000 unit Documented by: Famotidine (Pepcid) 20 mg PO DAILY [facility] Last Admin: 11/12/18 09:14 Dose: 20 mg Documented by: Heparin Sodium (Porcine) (Heparin) 5,000 unit SUB-Q Q8HR KIRSTEN Last Admin: 11/12/18 05:59 Dose: 5,000 unit Documented by: Norepinephrine (Levophed Drip 4 Mg/Ns 250 Ml) 4 mg in 250 mls @ 7.5 mls/hr IV TITR [facility]; Protocol Last Titration: 11/12/18 09:04 Dose: 2 mcg/min, 7.5 mls/hr Documented by: Sodium Chloride (Nacl 0.9%) 100 mls @ 999 mls/hr IV ALEJO PRN PRN Reason: Hypotension Cefepime HCl (Maxipime/Ns 1 Gm/100 Ml) 1 gm in 100 mls @ 200 mls/hr IV QPM KIRSTEN; Protocol Last Admin: 11/11/18 17:31 Dose: 200 mls/hr Documented by: Vancomycin HCl 500 mg/ Sodium (Chloride) 110 mls @ 66.667 mls/hr IV MoWeFr KIRSTEN Sodium Chloride (Nacl 0.9%) 100 mls @ 999 mls/hr IV ALEJO PRN PRN Reason: Hypotension Insulin Human Lispro (Humalog) 0 unit SUB-Q Q6HR KIRSTEN; Protocol Last Admin: 11/12/18 06:01 Dose: 1 unit Documented by: Levetiracetam (Keppra) 500 mg PO BID [facility] Last Admin: 11/12/18 09:14 Dose: 500 mg Documented by: Simple Syrup (Simple Syrup) 15 ml FEEDTUBE PRN PRN PRN Reason: Hypoglycemia Last Admin: 11/06/18 00:09 Dose: 15 ml Documented by: Simple Syrup (Simple Syrup) 30 ml FEEDTUBE PRN PRN PRN Reason: Hypoglycemia Sodium Bicarbonate (Sodium Bicarbonate) 325 mg FEEDTUBE PRN PRN PRN Reason: For Clogged Feeding Tube Review of Systems ROS unobtainable: due to mental status Exam Vital Signs Pulse Resp BP Pulse Ox 87 20 124/76 100 10/29/18 16:25 10/29/18 16:25 10/29/18 16:25 10/29/18 16:25 - General physical appearance Positive: no distress, no pain, other (unresponsive) - Neck Positive: no masses, no bruits, trachea midline, no venous distension, other (no prior incisions) - Respiratory Positive: normal expansion, normal respiratory effort - Cardiovascular Rhythm: regular - Abdomen Abdomen: Present: soft. Absent: distended, rigid, wound, surgical scars - Integumentary no rash, no growths, no abnormal pigmentation Results - Labs 11/12/18 05:15 11/12/18 05:15 Abnormal lab results 11/11/18 11/11/18 11/12/18 Range/Units 18:06 23:59 04:35 RBC (3.65-5.03) M/mm3 Hgb (11.8-15.2) gm/dl Hct (35.5-45.6) % MCV (84-94) fl MCH (28-32) pg Lymph % (Auto) (13.4-35.0) % [place] % (Auto) (0.0-7.3) % Lymph # (1.2-5.4) K/mm3 Seg Neutrophils % (40.0-70.0) % POC ABG pCO2 31.1 L (35-45) Sodium (137-145) mmol/L Carbon Dioxide (22-30) mmol/L BUN (9-20) mg/dL Creatinine (0.8-1.5) mg/dL Glucose (75-100) mg/dL POC Glucose 209 H 143 H (70-105) Calcium (8.4-10.2) mg/dL AST (5-40) units/L Total Protein (6.3-8.2) g/dL Albumin (3.9-5) g/dL 11/12/18 11/12/18 11/12/18 Range/Units 05:15 05:15 05:29 RBC 2.28 L (3.65-5.03) M/mm3 Hgb 7.4 L (11.8-15.2) gm/dl Hct 22.8 L (35.5-45.6) % MCV 100 H (84-94) fl MCH 33 H (28-32) pg Lymph % (Auto) 8.1 L (13.4-35.0) % [place] % (Auto) 7.9 H (0.0-7.3) % Lymph # 0.5 L (1.2-5.4) K/mm3 Seg Neutrophils % 83.2 H (40.0-70.0) % POC ABG pCO2 (35-45) Sodium 133 L (137-145) mmol/L Carbon Dioxide 21 L (22-30) mmol/L BUN 70 H (9-20) mg/dL Creatinine 2.8 H (0.8-1.5) mg/dL Glucose 165 H (75-100) mg/dL POC Glucose 186 H (70-105) Calcium 7.9 L (8.4-10.2) mg/dL AST 81 H (5-40) units/L Total Protein 5.9 L (6.3-8.2) g/dL Albumin 1.4 L (3.9-5) g/dL Diabetes panel 11/12/18 Range/Units 05:15 Sodium 133 L (137-145) mmol/L Potassium 3.8 (3.6-5.0) mmol/L Chloride 100.5 (98-107) mmol/L Carbon Dioxide 21 L (22-30) mmol/L BUN 70 H (9-20) mg/dL Creatinine 2.8 H (0.8-1.5) mg/dL Glucose 165 H (75-100) mg/dL Calcium 7.9 L (8.4-10.2) mg/dL AST 81 H (5-40) units/L ALT 24 (7-56) units/L Alkaline Phosphatase 105 (35-129) units/L Total Protein 5.9 L (6.3-8.2) g/dL Albumin 1.4 L (3.9-5) g/dL Calcium panel 11/12/18 Range/Units 05:15 Calcium 7.9 L (8.4-10.2) mg/dL Albumin 1.4 L (3.9-5) g/dL Pituitary panel 11/12/18 Range/Units 05:15 Sodium 133 L (137-145) mmol/L Potassium 3.8 (3.6-5.0) mmol/L Chloride 100.5 (98-107) mmol/L Carbon Dioxide 21 L (22-30) mmol/L BUN 70 H (9-20) mg/dL Creatinine 2.8 H (0.8-1.5) mg/dL Glucose 165 H (75-100) mg/dL Calcium 7.9 L (8.4-10.2) mg/dL Adrenal panel 11/12/18 Range/Units 05:15 Sodium 133 L (137-145) mmol/L Potassium 3.8 (3.6-5.0) mmol/L Chloride 100.5 (98-107) mmol/L Carbon Dioxide 21 L (22-30) mmol/L BUN 70 H (9-20) mg/dL Creatinine 2.8 H (0.8-1.5) mg/dL Glucose 165 H (75-100) mg/dL Calcium 7.9 L (8.4-10.2) mg/dL Total Bilirubin 0.30 (0.1-1.2) mg/dL AST 81 H (5-40) units/L ALT 24 (7-56) units/L Alkaline Phosphatase 105 (35-129) units/L Total Protein 5.9 L (6.3-8.2) g/dL Albumin 1.4 L (3.9-5) g/dL - Imaging Chest x-ray: report reviewed, image reviewed Assessment and Plan - Patient Problems (1) Respiratory failure Current Visit: Yes Status: Acute Qualifiers: Chronicity: acute Respiratory failure complication: unspecified whether with hypoxia or hypercapnia Qualified Code(s): J96.00 - Acute respiratory failure, unspecified whether with hypoxia or hypercapnia Plan to address problem: Pt stable. Pt would be an acceptable candidate for trach/PEG placement. Will reach out to family to obtain consent. time=30min
--- NOTE | 2018-11-12 11:15 | Progress Note ---
Assessment and Plan Cultures: 10/29/2018 Blood culture: No growth 10/30/2018 sputum culture: MRSA 10/30/2018 urine culture: Mixed growth 11/02/2018 blood culture: no growth 11/09/2018 blood culture: no growth A/P: 73-year-old male with prostate cancer, ESRD on hemodialysis, diabetes mellitus, peripheral vascular disease status post right-sided AKA is admitted to the hospital as a transfer from the shelter due to altered mental status. Apparently, the patient had been refusing dialysis for a week prior to admission. Now with: 1) Severe sepsis with shock s/p PEA arrest: remains on pressors, mechanical ventilation. 2) Right-sided pneumonia with acute hypoxic respiratory failure: On mechanical ventilation. Chest x-ray showing right-sided infiltrate. Sputum culture growing MRSA. 3) Possible UTI: Patient with indwelling suprapubic catheter. Also with ESRD on hemodialysis. This makes UA difficult to interpret for infection since quite likely to have urinary sediment. 4) ESRD on hemodialysis: Noncompliant. Renally dose abx. 5) Peripheral vascular disease: Status post right BKA, left TMA. 6) Right gluteal decubitus ulcer with eschar: continue wound care. 7) R sphenoid sinusitis noted on CT: already on abx. Recs: continue renally vancomycin, target pre-dialysis level 10-20 mcg/ml (today is Day 13 of 14) continue IV Cefepime renally adjusted Day 4 of 5 plan to stop antibiotics tomorrow Overall extremely poor prognosis, strongly recommend comfort/palliative care MD [facility] C: [phone] O: [phone] F: [phone] Subjective Date of service: 11/12/18 Principal diagnosis: sepsis, acute resp, failure. Interval history: Afebrile. Remains on the vent. Remains on pressors. Unresponsive. Objective - Exam Narrative Exam: Physical Exam: Constitutional: unresponsive, intubated Head, Ears, Nose: Normocephalic, atraumatic. External ears, nose normal Eyes: Conjunctivae/corneas clear. No icterus. No ptosis. Neck: Supple, no meningeal signs Oral: intubated Cardiovascular: S1, S2 normal. Respiratory: Good air entry, clear to auscultation bilaterally GI: Soft, bowel sounds hypo. Suprapubic cath + Musculoskeletal: Right AKA, left TMA stumps healed. Right gluteal region with eschar. Left femoral HD cath +. Edema + Skin: No rash or abscess Hem/Lymphatic: No palpable cervical or supraclavicular nodes. No lymphangitis Psych: no agitation Neurological: unresponsive, intubated, on vent. - Constitutional Vitals: Vital Signs Temp Pulse Resp BP Pulse Ox 97.2 F L 101 H 19 112/56 93 11/12/18 08:00 11/12/18 11:00 11/12/18 11:00 11/12/18 11:00 11/12/18 11:00 Temperature -Last 24 Hours Temperature 97.2 F Temperature 98.1 F Temperature 100 F Temperature 98.4 F Temperature 98.6 F - Labs CBC & Chem 7: 11/12/18 05:15 11/12/18 05:15 Labs: Abnormal lab results 11/11/18 11/11/18 11/12/18 Range/Units 18:06 23:59 04:35 RBC (3.65-5.03) M/mm3 Hgb (11.8-15.2) gm/dl Hct (35.5-45.6) % MCV (84-94) fl MCH (28-32) pg Lymph % (Auto) (13.4-35.0) % [place] % (Auto) (0.0-7.3) % Lymph # (1.2-5.4) K/mm3 Seg Neutrophils % (40.0-70.0) % POC ABG pCO2 31.1 L (35-45) Sodium (137-145) mmol/L Carbon Dioxide (22-30) mmol/L BUN (9-20) mg/dL Creatinine (0.8-1.5) mg/dL Glucose (75-100) mg/dL POC Glucose 209 H 143 H (70-105) Calcium (8.4-10.2) mg/dL AST (5-40) units/L Total Protein (6.3-8.2) g/dL Albumin (3.9-5) g/dL 11/12/18 11/12/18 11/12/18 Range/Units 05:15 05:15 05:29 RBC 2.28 L (3.65-5.03) M/mm3 Hgb 7.4 L (11.8-15.2) gm/dl Hct 22.8 L (35.5-45.6) % MCV 100 H (84-94) fl MCH 33 H (28-32) pg Lymph % (Auto) 8.1 L (13.4-35.0) % [place] % (Auto) 7.9 H (0.0-7.3) % Lymph # 0.5 L (1.2-5.4) K/mm3 Seg Neutrophils % 83.2 H (40.0-70.0) % POC ABG pCO2 (35-45) Sodium 133 L (137-145) mmol/L Carbon Dioxide 21 L (22-30) mmol/L BUN 70 H (9-20) mg/dL Creatinine 2.8 H (0.8-1.5) mg/dL Glucose 165 H (75-100) mg/dL POC Glucose 186 H (70-105) Calcium 7.9 L (8.4-10.2) mg/dL AST 81 H (5-40) units/L Total Protein 5.9 L (6.3-8.2) g/dL Albumin 1.4 L (3.9-5) g/dL
[2018-11-12] MEDS ORDERED: MORPHINE IV ONE (12:00)
--- NOTE | 2018-11-12 13:09 | XRay Report ---
AP CHEST: HISTORY: Tachypnea The endotracheal tube and feeding tube are unchanged in position. Partial atelectasis has developed at the right lung base. A small air space opacity has developed in the left lower lobe or lingula since 11/02/18. The upper lung zones are clear. No large pleural effusion or pneumothorax. Heart size is within normal limits. IMPRESSION: Partial atelectasis has developed at the right lung base. Subtle patchy infiltrate is suspected in the left lower lobe. Correlate for early pneumonia.
--- NOTE | 2018-11-12 13:49 | Event Note ---
Date: 11/12/18 I discussed all risks, benefits, and alternatives to tracheostomy, PEG tube placement with both daughter's at the bedside. The indication for placement was discussed. All questions answered. Consent obtained for the procedures.
[2018-11-12] MEDS ORDERED: NACL 0.9% 1000 ML 2,000 ML ONE (15:15)
[2018-11-12] MEDS: PROCRIT SUB-Q PRN (17:30)
--- NOTE | 2018-11-12 17:51 | Consultation ---
History of Present Illness Consult date: 11/12/18 Requesting physician: JESSICA MILLS Reason for Consult: coma Chief complaint: coma History of present illness: This 73-year-old -[place] male was admitted after cardiac arrest at hem odialysis 10/29/18. Consultation was ordered November 04 but never noted so I contacted Dr. Mills today and she said she still would like a consultation. Only clinical change mentioned to me by Dr. Garrison, analysis or research safety inspector, is that his eyes are open today. CT scan shows periventricular hypodensities and severe cerebellar and cerebral atrophy. Past History Past Medical History: cancer, diabetes, DVT, other (MRSA) Past Surgical History: Other (LE amputation. Cannot interview due to coma) Social history: no significant social history, other (unknown due to mental status) Family history: no significant family history, other (unknown due to mental status) Medications and Allergies Allergies Allergy/AdvReac Type Severity Reaction Status Date / Time No Known Allergies Allergy Verified 01/18/18 20:10 Home Medications Medication Instructions Recorded Confirmed Last Taken Type Acetaminophen [Acetaminophen TAB] 650 mg PO Q4H PRN 03/12/18 10/31/18 Unknown History Calcium Acetate [Phoslo] 667 mg PO TID 03/12/18 10/31/18 05/13/18 17:00 History Carvedilol [Coreg] 6.25 mg PO BID 03/12/18 10/31/18 05/13/18 09:00 History Ergocalciferol 50,000 unit PO QWEEK 03/12/18 10/31/18 05/11/18 09:00 History Apixaban [Eliquis] 2.5 mg PO BID tablet 08/21/18 10/31/18 Unknown Rx Megestrol [Megace] 400 mg PO QDAY 10/31/18 10/31/18 Unknown History Mirtazapine [Remeron] 15 mg PO QHS 10/31/18 10/31/18 Unknown History Elaine-José Rx Tablet 1 tab PO QDAY 10/31/18 10/31/18 Unknown History Sodium Bicarbonate 650 mg PO BID 10/31/18 10/31/18 Unknown History traMADol [Ultram 50 MG tab] 25 mg PO Q12H PRN 10/31/18 10/31/18 Unknown History Active Meds: Active Medications Acetaminophen (Tylenol) 650 mg FEEDTUBE Q6H PRN PRN Reason: Fever >101 Last Admin: 11/09/18 18:46 Dose: 650 mg Documented by: Lipase/Protease/Amylase (Pancreaze Dr 10,500 Unit) 1 each FEEDTUBE PRN PRN PRN Reason: For Clogged Feeding Tube Epoetin Cliff (Procrit) 20,000 unit SUB-Q ALEJO PRN PRN Reason: hemodialysis Last Admin: 11/12/18 17:30 Dose: 20,000 unit Documented by: Famotidine (Pepcid) 20 mg PO DAILY [facility] Last Admin: 11/12/18 09:14 Dose: 20 mg Documented by: Heparin Sodium (Porcine) (Heparin) 5,000 unit SUB-Q Q8HR KIRSTEN Last Admin: 11/12/18 14:36 Dose: 5,000 unit Documented by: Norepinephrine (Levophed Drip 4 Mg/Ns 250 Ml) 4 mg in 250 mls @ 7.5 mls/hr IV TITR [facility]; Protocol Last Titration: 11/12/18 11:55 Dose: 0 mcg/min, 0 mls/hr Documented by: Sodium Chloride (Nacl 0.9%) 100 mls @ 999 mls/hr IV ALEJO PRN PRN Reason: Hypotension Cefepime HCl (Maxipime/Ns 1 Gm/100 Ml) 1 gm in 100 mls @ 200 mls/hr IV QPM [facility]; Protocol Last Admin: 11/11/18 17:31 Dose: 200 mls/hr Documented by: Vancomycin HCl 500 mg/ Sodium (Chloride) 110 mls @ 66.667 mls/hr IV MoWeFr KIRSTEN Sodium Chloride (Nacl 0.9%) 100 mls @ 999 mls/hr IV ALEJO PRN PRN Reason: Hypotension Insulin Human Lispro (Humalog) 0 unit SUB-Q Q6HR [facility]; Protocol Last Admin: 11/12/18 11:57 Dose: 3 unit Documented by: Levetiracetam (Keppra) 500 mg PO BID [facility] Last Admin: 11/12/18 09:14 Dose: 500 mg Documented by: Simple Syrup (Simple Syrup) 15 ml FEEDTUBE PRN PRN PRN Reason: Hypoglycemia Last Admin: 11/06/18 00:09 Dose: 15 ml Documented by: Simple Syrup (Simple Syrup) 30 ml FEEDTUBE PRN PRN PRN Reason: Hypoglycemia Sodium Bicarbonate (Sodium Bicarbonate) 325 mg FEEDTUBE PRN PRN PRN Reason: For Clogged Feeding Tube Review of Systems ROS unobtainable: due to mental status Physical Examination - Vital Signs Vital Signs: Vital Signs Pulse Resp BP Pulse Ox 87 20 124/76 100 10/29/18 16:25 10/29/18 16:25 10/29/18 16:25 10/29/18 16:25 - Physical Exam Narrative exam: General appearance: well developed but perhaps (per BMI though weighs less due to amputations) early 70s -[place] male, intubated, eyes open but not tracking. HEENT: atraumatic, normocephalic, Erika not enlarged or indurated. No bruits. Oropharynx obscured by endotracheal tube. Neck: supple, no bruits. Heart: no murmur or extra sounds. Extremities: no edema. 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 No dorsalis pedis pulse or posterior tibial pulse palpable on the left. Neurologic Exam: Mental status: not responding with blink or head motion to questions, does not track me. Eyes are open. Does not obey commands. Cranial nerves: slight blink to right threat, cannot see fundi due to cloudy media, 2 mm slightly reactive pupils (using ophthalmoscope) with corneal clouding left, (+) Doll's eyes, no response to pinprick, corneals present X 2, grimaces left>right to supraorbital pressure and on left to TMJ pressure, cannot assess Suarez, gags are absent but triggers chewing motions, cannot assess shoulder shrug or tongue protrusion. Cerebellar: cannot assess. Sensory: no response to pinprick or nailbed pressure in upper or lower extremities. Motor Exam Upper Extremities: no response to nailbed pressure or pinprick or s upraorbital pressure or TMJ pressure or chest or neck skin pinch or palmar rub. Some spontaneous brief right hand/wrist rotation. Motor Exam Lower Extremities: no response to pinprick or supraorbital pressure or TMJ pressure or chest or neck skin pinch. Reflexes: palmomental is negative, snout is negative, jaw jerk is negative. Triceps, biceps and brachioradialis are 0 bilaterally. Kahlil's is negative bilaterally. Knee jerk and ankle jerk are 0 on the left without clonus. Toes are all absent. Results - Laboratory Findings CBC and BMP: 11/12/18 05:15 11/12/18 05:15 Abnormal Lab Findings: Abnormal Labs 10/29/18 10/29/18 10/29/18 17:13 17:13 17:13 RBC 3.62 L Hgb Hct MCV 102 H MCH 34 H RDW 19.6 H Plt Count Lymph % (Auto) [place] % (Auto) 7.8 H Lymph # Seg Neutrophils % 71.2 H Seg Neuts % (Manual) Lymphocytes % (Manual) Monocytes % (Manual) Seg Neutrophils # Lymphocytes # (Manual) PT INR POC ABG pH POC ABG pCO2 POC ABG pO2 Sodium 164 H* Potassium 6.2 H* Chloride 127.5 H Carbon Dioxide BUN 178 H Creatinine 4.2 H Glucose 131 H POC Glucose Calcium 10.7 H AST C-Reactive Protein Total Protein 9.5 H Albumin 2.6 L TSH 5.310 H Urine pH Urine WBC (Auto) Vancomycin Trough 10/29/18 10/30/18 10/30/18 23:57 00:06 04:35 RBC Hgb Hct MCV MCH RDW Plt Count Lymph % (Auto) [place] % (Auto) Lymph # Seg Neutrophils % Seg Neuts % (Manual) Lymphocytes % (Manual) Monocytes % (Manual) Seg Neutrophils # Lymphocytes # (Manual) PT INR POC ABG pH 7.488 H POC ABG pCO2 32.1 L 34.9 L POC ABG pO2 144 H Sodium Potassium Chloride Carbon Dioxide BUN Creatinine Glucose POC Glucose 131 H Calcium AST C-Reactive Protein Total Protein Albumin TSH Urine pH Urine WBC (Auto) Vancomycin Trough 10/30/18 10/30/18 10/30/18 05:13 08:54 08:54 RBC 3.56 L Hgb 11.7 L Hct MCV 102 H MCH 33 H RDW 19.2 H Plt Count Lymph % (Auto) [place] % (Auto) Lymph # Seg Neutrophils % Seg Neuts % (Manual) Lymphocytes % (Manual) Monocytes % (Manual) Seg Neutrophils # Lymphocytes # (Manual) PT INR POC ABG pH POC ABG pCO2 POC ABG pO2 Sodium Potassium Chloride Carbon Dioxide BUN Creatinine Glucose POC Glucose 316 H Calcium AST C-Reactive Protein 5.20 H Total Protein Albumin 2.2 L TSH Urine pH Urine WBC (Auto) Vancomycin Trough 10/30/18 10/30/18 10/30/18 08:59 12:03 18:30 RBC Hgb Hct MCV MCH RDW Plt Count Lymph % (Auto) [place] % (Auto) Lymph # Seg Neutrophils % Seg Neuts % (Manual) Lymphocytes % (Manual) Monocytes % (Manual) Seg Neutrophils # Lymphocytes # (Manual) PT INR POC ABG pH POC ABG pCO2 POC ABG pO2 Sodium 146 H D Potassium Chloride Carbon Dioxide BUN 86 H Creatinine 2.7 H Glucose 262 H POC Glucose 232 H 57 L Calcium AST C-Reactive Protein Total Protein Albumin TSH Urine pH Urine WBC (Auto) Vancomycin Trough 10/30/18 10/30/18 10/30/18 18:39 19:07 19:42 RBC Hgb Hct MCV MCH RDW Plt Count Lymph % (Auto) [place] % (Auto) Lymph # Seg Neutrophils % Seg Neuts % (Manual) Lymphocytes % (Manual) Monocytes % (Manual) Seg Neutrophils # Lymphocytes # (Manual) PT INR POC ABG pH POC ABG pCO2 POC ABG pO2 Sodium Potassium Chloride Carbon Dioxide BUN Creatinine Glucose POC Glucose < 40 L 51 L Calcium AST C-Reactive Protein Total Protein Albumin TSH Urine pH 8.0 H Urine WBC (Auto) > 182.0 H Vancomycin Trough 10/30/18 10/30/18 10/30/18 19:51 23:13 23:20 RBC Hgb Hct MCV MCH RDW Plt Count Lymph % (Auto) [place] % (Auto) Lymph # Seg Neutrophils % Seg Neuts % (Manual) Lymphocytes % (Manual) Monocytes % (Manual) Seg Neutrophils # Lymphocytes # (Manual) PT INR POC ABG pH POC ABG pCO2 POC ABG pO2 Sodium Potassium Chloride 108.5 H Carbon Dioxide 21 L BUN 96 H Creatinine 3.0 H Glucose 865 H* 150 H POC Glucose 152 H Calcium AST C-Reactive Protein Total Protein Albumin TSH Urine pH Urine WBC (Auto) Vancomycin Trough 10/30/18 10/31/18 10/31/18 23:40 04:43 04:43 RBC Hgb Hct MCV 100 H MCH 33 H RDW 18.1 H Plt Count Lymph % (Auto) [place] % (Auto) Lymph # Seg Neutrophils % Seg Neuts % (Manual) Lymphocytes % (Manual) 4.0 L Monocytes % (Manual) Seg Neutrophils # Lymphocytes # (Manual) 0.3 L PT INR POC ABG pH POC ABG pCO2 POC ABG pO2 Sodium Potassium Chloride Carbon Dioxide 19 L BUN 98 H Creatinine 3.2 H Glucose 184 H POC Glucose 145 H Calcium AST C-Reactive Protein Total Protein Albumin TSH Urine pH Urine WBC (Auto) Vancomycin Trough 10/31/18 10/31/18 10/31/18 05:44 11:44 13:19 RBC Hgb Hct MCV MCH RDW Plt Count Lymph % (Auto) [place] % (Auto) Lymph # Seg Neutrophils % Seg Neuts % (Manual) Lymphocytes % (Manual) Monocytes % (Manual) Seg Neutrophils # Lymphocytes # (Manual) PT INR POC ABG pH POC ABG pCO2 POC ABG pO2 64 L Sodium Potassium Chloride Carbon Dioxide BUN Creatinine Glucose POC Glucose 142 H 196 H Calcium AST C-Reactive Protein Total Protein Albumin TSH Urine pH Urine WBC (Auto) Vancomycin Trough 10/31/18 11/01/18 11/01/18 17:36 04:07 04:07 RBC 3.40 L Hgb 11.2 L Hct 33.6 L MCV 99 H MCH 33 H RDW 17.5 H Plt Count Lymph % (Auto) [place] % (Auto) Lymph # Seg Neutrophils % Seg Neuts % (Manual) 80.0 H Lymphocytes % (Manual) 4.0 L Monocytes % (Manual) Seg Neutrophils # Lymphocytes # (Manual) 0.3 L PT INR POC ABG pH POC ABG pCO2 POC ABG pO2 Sodium Potassium Chloride Carbon Dioxide 19 L BUN 108 H Creatinine 3.9 H Glucose 138 H POC Glucose 174 H Calcium 7.9 L AST C-Reactive Protein Total Protein Albumin TSH Urine pH Urine WBC (Auto) Vancomycin Trough 11/01/18 11/01/18 11/01/18 05:24 05:36 13:09 RBC Hgb Hct MCV MCH RDW Plt Count Lymph % (Auto) [place] % (Auto) Lymph # Seg Neutrophils % Seg Neuts % (Manual) Lymphocytes % (Manual) Monocytes % (Manual) Seg Neutrophils # Lymphocytes # (Manual) PT INR POC ABG pH POC ABG pCO2 POC ABG pO2 65 L Sodium Potassium Chloride Carbon Dioxide BUN Creatinine Glucose POC Glucose 153 H 249 H Calcium AST C-Reactive Protein Total Protein Albumin TSH Urine pH Urine WBC (Auto) Vancomycin Trough 11/01/18 11/02/18 11/02/18 18:11 05:04 07:17 RBC 3.08 L Hgb 10.1 L Hct 30.1 L MCV 98 H MCH 33 H RDW 16.7 H Plt Count Lymph % (Auto) [place] % (Auto) Lymph # Seg Neutrophils % Seg Neuts % (Manual) 92.0 H Lymphocytes % (Manual) 3.0 L Monocytes % (Manual) Seg Neutrophils # Lymphocytes # (Manual) 0.2 L PT INR POC ABG pH POC ABG pCO2 POC ABG pO2 Sodium Potassium Chloride Carbon Dioxide BUN Creatinine Glucose POC Glucose 175 H 118 H Calcium AST C-Reactive Protein Total Protein Albumin TSH Urine pH Urine WBC (Auto) Vancomycin Trough 11/02/18 11/02/18 11/02/18 07:54 09:32 12:28 RBC Hgb Hct MCV MCH RDW Plt Count Lymph % (Auto) [place] % (Auto) Lymph # Seg Neutrophils % Seg Neuts % (Manual) Lymphocytes % (Manual) Monocytes % (Manual) Seg Neutrophils # Lymphocytes # (Manual) PT INR POC ABG pH 7.514 H POC ABG pCO2 POC ABG pO2 70 L Sodium 135 L Potassium Chloride Carbon Dioxide BUN 48 H Creatinine 2.2 H Glucose 170 H POC Glucose 242 H Calcium 7.4 L AST C-Reactive Protein Total Protein Albumin TSH Urine pH Urine WBC (Auto) Vancomycin Trough 11/02/18 11/03/18 11/03/18 23:32 04:34 05:10 RBC 2.87 L Hgb 9.4 L Hct 28.5 L MCV 99 H MCH 33 H RDW 16.7 H Plt Count Lymph % (Auto) [place] % (Auto) Lymph # Seg Neutrophils % Seg Neuts % (Manual) 91.0 H Lymphocytes % (Manual) 4.0 L Monocytes % (Manual) Seg Neutrophils # Lymphocytes # (Manual) 0.3 L PT INR POC ABG pH POC ABG pCO2 33.2 L POC ABG pO2 76 L Sodium Potassium Chloride Carbon Dioxide BUN Creatinine Glucose POC Glucose 177 H Calcium AST C-Reactive Protein Total Protein Albumin TSH Urine pH Urine WBC (Auto) Vancomycin Trough 11/03/18 11/03/18 11/03/18 06:04 12:26 18:43 RBC Hgb Hct MCV MCH RDW Plt Count Lymph % (Auto) [place] % (Auto) Lymph # Seg Neutrophils % Seg Neuts % (Manual) Lymphocytes % (Manual) Monocytes % (Manual) Seg Neutrophils # Lymphocytes # (Manual) PT INR POC ABG pH POC ABG pCO2 POC ABG pO2 Sodium Potassium Chloride Carbon Dioxide BUN Creatinine Glucose POC Glucose 168 H 196 H 153 H Calcium AST C-Reactive Protein Total Protein Albumin TSH Urine pH Urine WBC (Auto) Vancomycin Trough 11/03/18 11/04/18 11/04/18 23:34 03:50 05:05 RBC 2.74 L Hgb 9.1 L Hct 27.3 L MCV 99 H MCH 33 H RDW 16.5 H Plt Count Lymph % (Auto) [place] % (Auto) Lymph # Seg Neutrophils % Seg Neuts % (Manual) 87.0 H Lymphocytes % (Manual) 7.0 L Monocytes % (Manual) Seg Neutrophils # Lymphocytes # (Manual) 0.5 L PT INR POC ABG pH POC ABG pCO2 31.7 L POC ABG pO2 74 L Sodium Potassium Chloride Carbon Dioxide BUN Creatinine Glucose POC Glucose 213 H Calcium AST C-Reactive Protein Total Protein Albumin TSH Urine pH Urine WBC (Auto) Vancomycin Trough 11/04/18 11/04/18 11/04/18 05:05 05:23 12:26 RBC Hgb Hct MCV MCH RDW Plt Count Lymph % (Auto) [place] % (Auto) Lymph # Seg Neutrophils % Seg Neuts % (Manual) Lymphocytes % (Manual) Monocytes % (Manual) Seg Neutrophils # Lymphocytes # (Manual) PT INR POC ABG pH POC ABG pCO2 POC ABG pO2 Sodium Potassium Chloride Carbon Dioxide BUN 84 H Creatinine 3.3 H Glucose 177 H POC Glucose 196 H 182 H Calcium 7.6 L AST C-Reactive Protein Total Protein Albumin TSH Urine pH Urine WBC (Auto) Vancomycin Trough 11/04/18 11/04/18 11/05/18 13:25 22:36 05:07 RBC Hgb Hct MCV MCH RDW Plt Count Lymph % (Auto) [place] % (Auto) Lymph # Seg Neutrophils % Seg Neuts % (Manual) Lymphocytes % (Manual) Monocytes % (Manual) Seg Neutrophils # Lymphocytes # (Manual) PT INR POC ABG pH POC ABG pCO2 30.1 L POC ABG pO2 63 L Sodium Potassium Chloride Carbon Dioxide BUN Creatinine Glucose POC Glucose 159 H Calcium AST C-Reactive Protein Total Protein Albumin TSH Urine pH Urine WBC (Auto) Vancomycin Trough 4.4 L 11/05/18 11/05/18 11/05/18 05:42 06:36 12:54 RBC Hgb Hct MCV MCH RDW Plt Count Lymph % (Auto) [place] % (Auto) Lymph # Seg Neutrophils % Seg Neuts % (Manual) Lymphocytes % (Manual) Monocytes % (Manual) Seg Neutrophils # Lymphocytes # (Manual) PT INR POC ABG pH POC ABG pCO2 POC ABG pO2 Sodium 134 L Potassium 3.4 L Chloride Carbon Dioxide 18 L BUN 93 H Creatinine 3.7 H Glucose 230 H POC Glucose 233 H 237 H Calcium 7.8 L AST C-Reactive Protein Total Protein Albumin TSH Urine pH Urine WBC (Auto) Vancomycin Trough 11/05/18 11/05/18 11/06/18 19:36 23:35 01:59 RBC Hgb Hct MCV MCH RDW Plt Count Lymph % (Auto) [place] % (Auto) Lymph # Seg Neutrophils % Seg Neuts % (Manual) Lymphocytes % (Manual) Monocytes % (Manual) Seg Neutrophils # Lymphocytes # (Manual) PT INR POC ABG pH POC ABG pCO2 POC ABG pO2 Sodium Potassium Chloride Carbon Dioxide BUN Creatinine Glucose POC Glucose 174 H 56 L 112 H Calcium AST C-Reactive Protein Total Protein Albumin TSH Urine pH Urine WBC (Auto) Vancomycin Trough 11/06/18 11/06/18 11/06/18 04:33 05:06 07:24 RBC 2.83 L Hgb 9.3 L Hct 27.9 L MCV 99 H MCH 33 H RDW 15.9 H Plt Count 133 L Lymph % (Auto) [place] % (Auto) Lymph # Seg Neutrophils % Seg Neuts % (Manual) 94.0 H Lymphocytes % (Manual) 4.0 L Monocytes % (Manual) Seg Neutrophils # Lymphocytes # (Manual) 0.3 L PT INR POC ABG pH POC ABG pCO2 32.4 L POC ABG pO2 73 L Sodium Potassium Chloride Carbon Dioxide BUN Creatinine Glucose POC Glucose 139 H Calcium AST C-Reactive Protein Total Protein Albumin TSH Urine pH Urine WBC (Auto) Vancomycin Trough 11/06/18 11/06/18 11/06/18 07:24 11:52 17:16 RBC Hgb Hct MCV MCH RDW Plt Count Lymph % (Auto) [place] % (Auto) Lymph # Seg Neutrophils % Seg Neuts % (Manual) Lymphocytes % (Manual) Monocytes % (Manual) Seg Neutrophils # Lymphocytes # (Manual) PT INR POC ABG pH POC ABG pCO2 POC ABG pO2 Sodium 136 L Potassium 3.2 L Chloride Carbon Dioxide BUN 59 H Creatinine 2.3 H Glucose 137 H POC Glucose 212 H 194 H Calcium 7.4 L AST C-Reactive Protein Total Protein Albumin TSH Urine pH Urine WBC (Auto) Vancomycin Trough 11/07/18 11/07/18 11/07/18 00:44 05:56 06:12 RBC 2.64 L Hgb 8.7 L Hct 26.3 L MCV 100 H MCH 33 H RDW 15.7 H Plt Count Lymph % (Auto) 4.6 L [place] % (Auto) Lymph # 0.4 L Seg Neutrophils % 89.4 H Seg Neuts % (Manual) Lymphocytes % (Manual) Monocytes % (Manual) Seg Neutrophils # 8.3 H Lymphocytes # (Manual) PT INR POC ABG pH POC ABG pCO2 POC ABG pO2 Sodium Potassium Chloride Carbon Dioxide BUN Creatinine Glucose POC Glucose 193 H 145 H Calcium AST C-Reactive Protein Total Protein Albumin TSH Urine pH Urine WBC (Auto) Vancomycin Trough 11/07/18 11/07/18 11/07/18 06:12 12:20 17:27 RBC Hgb Hct MCV MCH RDW Plt Count Lymph % (Auto) [place] % (Auto) Lymph # Seg Neutrophils % Seg Neuts % (Manual) Lymphocytes % (Manual) Monocytes % (Manual) Seg Neutrophils # Lymphocytes # (Manual) PT INR POC ABG pH POC ABG pCO2 POC ABG pO2 Sodium Potassium Chloride Carbon Dioxide BUN 74 H Creatinine 2.8 H Glucose 143 H POC Glucose 207 H 170 H Calcium 7.7 L AST C-Reactive Protein Total Protein Albumin TSH Urine pH Urine WBC (Auto) Vancomycin Trough 11/07/18 11/08/18 11/08/18 23:40 06:04 07:09 RBC Hgb Hct MCV MCH RDW Plt Count Lymph % (Auto) [place] % (Auto) Lymph # Seg Neutrophils % Seg Neuts % (Manual) Lymphocytes % (Manual) Monocytes % (Manual) Seg Neutrophils # Lymphocytes # (Manual) PT 15.8 H INR 1.18 H POC ABG pH POC ABG pCO2 POC ABG pO2 Sodium Potassium Chloride Carbon Dioxide BUN Creatinine Glucose POC Glucose 188 H 170 H Calcium AST C-Reactive Protein Total Protein Albumin TSH Urine pH Urine WBC (Auto) Vancomycin Trough 11/08/18 11/08/18 11/08/18 11:21 18:29 23:10 RBC Hgb Hct MCV MCH RDW Plt Count Lymph % (Auto) [place] % (Auto) Lymph # Seg Neutrophils % Seg Neuts % (Manual) Lymphocytes % (Manual) Monocytes % (Manual) Seg Neutrophils # Lymphocytes # (Manual) PT INR POC ABG pH POC ABG pCO2 POC ABG pO2 Sodium Potassium Chloride Carbon Dioxide BUN Creatinine Glucose POC Glucose 191 H 224 H 197 H Calcium AST C-Reactive Protein Total Protein Albumin TSH Urine pH Urine WBC (Auto) Vancomycin Trough 11/09/18 11/09/18 11/09/18 04:59 07:35 07:35 RBC 2.51 L Hgb 8.3 L Hct 25.3 L MCV 101 H MCH 33 H RDW Plt Count Lymph % (Auto) [place] % (Auto) Lymph # Seg Neutrophils % Seg Neuts % (Manual) 79.0 H Lymphocytes % (Manual) 8.0 L Monocytes % (Manual) 9.0 H Seg Neutrophils # Lymphocytes # (Manual) 0.6 L PT INR POC ABG pH POC ABG pCO2 POC ABG pO2 Sodium 133 L Potassium 3.5 L Chloride Carbon Dioxide BUN 54 H Creatinine 2.4 H Glucose 166 H POC Glucose 173 H Calcium 8.0 L AST C-Reactive Protein Total Protein Albumin TSH Urine pH Urine WBC (Auto) Vancomycin Trough 11/09/18 11/09/18 11/09/18 11:47 15:17 17:15 RBC Hgb Hct MCV MCH RDW Plt Count Lymph % (Auto) [place] % (Auto) Lymph # Seg Neutrophils % Seg Neuts % (Manual) Lymphocytes % (Manual) Monocytes % (Manual) Seg Neutrophils # Lymphocytes # (Manual) PT INR POC ABG pH POC ABG pCO2 POC ABG pO2 75 L Sodium Potassium Chloride Carbon Dioxide BUN Creatinine Glucose POC Glucose 226 H 202 H Calcium AST C-Reactive Protein Total Protein Albumin TSH Urine pH Urine WBC (Auto) Vancomycin Trough 11/10/18 11/10/18 11/10/18 00:04 04:34 04:34 RBC 2.36 L Hgb 7.8 L Hct 24.1 L MCV 102 H MCH 33 H RDW Plt Count Lymph % (Auto) [place] % (Auto) Lymph # Seg Neutrophils % Seg Neuts % (Manual) 82.0 H Lymphocytes % (Manual) 6.0 L Monocytes % (Manual) Seg Neutrophils # Lymphocytes # (Manual) 0.3 L PT INR POC ABG pH POC ABG pCO2 POC ABG pO2 Sodium 136 L Potassium 3.2 L Chloride Carbon Dioxide BUN 39 H Creatinine 2.0 H Glucose 152 H POC Glucose 197 H Calcium 8.3 L AST C-Reactive Protein Total Protein 6.0 L Albumin 1.4 L TSH Urine pH Urine WBC (Auto) Vancomycin Trough 11/10/18 11/10/18 11/10/18 05:12 12:01 17:48 RBC Hgb Hct MCV MCH RDW Plt Count Lymph % (Auto) [place] % (Auto) Lymph # Seg Neutrophils % Seg Neuts % (Manual) Lymphocytes % (Manual) Monocytes % (Manual) Seg Neutrophils # Lymphocytes # (Manual) PT INR POC ABG pH POC ABG pCO2 POC ABG pO2 Sodium Potassium Chloride Carbon Dioxide BUN Creatinine Glucose POC Glucose 163 H 139 H 215 H Calcium AST C-Reactive Protein Total Protein Albumin TSH Urine pH Urine WBC (Auto) Vancomycin Trough 11/10/18 11/11/18 11/11/18 23:51 04:45 06:05 RBC Hgb Hct MCV MCH RDW Plt Count Lymph % (Auto) [place] % (Auto) Lymph # Seg Neutrophils % Seg Neuts % (Manual) Lymphocytes % (Manual) Monocytes % (Manual) Seg Neutrophils # Lymphocytes # (Manual) PT INR POC ABG pH POC ABG pCO2 34.2 L POC ABG pO2 Sodium Potassium Chloride Carbon Dioxide BUN Creatinine Glucose POC Glucose 243 H 175 H Calcium AST C-Reactive Protein Total Protein Albumin TSH Urine pH Urine WBC (Auto) Vancomycin Trough 11/11/18 11/11/18 11/11/18 06:07 06:07 18:06 RBC 2.27 L Hgb 7.6 L Hct 22.6 L MCV 100 H MCH 33 H RDW Plt Count Lymph % (Auto) 10.7 L [place] % (Auto) Lymph # 0.6 L Seg Neutrophils % 81.0 H Seg Neuts % (Manual) 81.0 H Lymphocytes % (Manual) 11.0 L Monocytes % (Manual) Seg Neutrophils # Lymphocytes # (Manual) 0.6 L PT INR POC ABG pH POC ABG pCO2 POC ABG pO2 Sodium 134 L Potassium 3.2 L Chloride Carbon Dioxide BUN 58 H Creatinine 2.6 H Glucose 139 H POC Glucose 209 H Calcium 7.7 L AST C-Reactive Protein Total Protein 6.2 L Albumin 1.4 L TSH Urine pH Urine WBC (Auto) Vancomycin Trough 11/11/18 11/12/18 11/12/18 23:59 04:35 05:15 RBC 2.28 L Hgb 7.4 L Hct 22.8 L MCV 100 H MCH 33 H RDW Plt Count Lymph % (Auto) 8.1 L [place] % (Auto) 7.9 H Lymph # 0.5 L Seg Neutrophils % 83.2 H Seg Neuts % (Manual) Lymphocytes % (Manual) Monocytes % (Manual) Seg Neutrophils # Lymphocytes # (Manual) PT INR POC ABG pH POC ABG pCO2 31.1 L POC ABG pO2 Sodium Potassium Chloride Carbon Dioxide BUN Creatinine Glucose POC Glucose 143 H Calcium AST C-Reactive Protein Total Protein Albumin TSH Urine pH Urine WBC (Auto) Vancomycin Trough 11/12/18 11/12/18 11/12/18 05:15 05:29 11:18 RBC Hgb Hct MCV MCH RDW Plt Count Lymph % (Auto) [place] % (Auto) Lymph # Seg Neutrophils % Seg Neuts % (Manual) Lymphocytes % (Manual) Monocytes % (Manual) Seg Neutrophils # Lymphocytes # (Manual) PT INR POC ABG pH POC ABG pCO2 POC ABG pO2 Sodium 133 L Potassium Chloride Carbon Dioxide 21 L BUN 70 H Creatinine 2.8 H Glucose 165 H POC Glucose 186 H 153 H Calcium 7.9 L AST 81 H C-Reactive Protein Total Protein 5.9 L Albumin 1.4 L TSH Urine pH Urine WBC (Auto) Vancomycin Trough Assessment and Plan Impression: 1. Hypoxic ischemic encephalopathy Plan: 1. Will repeat EEG. Could not be done today since dialysis nurse would not allow movement of his head, so will be done tomorrow. 2. I reviewed his prior EEG showing some intermittent slowing on either side but no epileptiform activity though some tachycardia. 3. I ordered levetiracetam blood level. 45 min recall care time spent with this patient including review of multiple CT images. Repeat at least CT scan now that he is off pressors and perhaps do MRI later. Thank you for an interesting consultation on this unfortunate early 70s man.
[2018-11-12] MEDS: MAXIPIME/NS 1 GM/100 ML 1 GM/100 ML BAG IV SCH (18:07)
[2018-11-12] MEDS ORDERED: VANCOMYCIN 500 MG in NACL 0.9% 100 ML IV SCH (22:00)
--- NOTE | 2018-11-12 23:02 | Progress Note ---
Assessment and Plan - Patient Problems (1) Altered mental status Current Visit: Yes Status: Acute Qualifiers: Altered mental status type: unspecified Qualified Code(s): R41.82 - Altered mental status, unspecified Plan to address problem: most likely due to sinus infection follow ID. (2) Hyperkalemia Current Visit: Yes Status: Acute Plan to address problem: Treated, and continue to correct with HD. corrected. (3) Hypernatremia Current Visit: Yes Status: Acute Plan to address problem: correct with HD. As above when feasible with the Renal service. patient continues with HD. (4) Uremia Current Visit: Yes Status: Acute Plan to address problem: treat underlying cause. Follow Renal. (5) Acute encephalopathy Current Visit: Yes Status: Chronic Plan to address problem: supportive care. (6) ESRD needing dialysis Current Visit: Yes Status: Chronic Plan to address problem: Continue on HD. as above once feasible. (7) Sepsis Current Visit: Yes Status: Acute Plan to address problem: treat the etiology.Most likely due to sinus infection. Subjective Date of service: 11/12/18 Principal diagnosis: sepsis, acute resp, failure. Interval history: Patient seen/examined,in the ICU. I have spoken to the daughter, and his sister today, regarding plan of care, and prognosis. I have rec less aggressive path, including hospice. They will think about it ,and let me know. Mean while, will continue current management. His prognosis is quite poor at this time. Patient seen/examined, resting in bed, labs reviewed.Still on the vent.If unable to be weaned off the vent, on timely /expected time, will push for LTAC eval[facility]placement [facility] to start preparing for this possibility. Patient seen/examined, resting in bed, still not wean able yet.He had HD today. patient seen/examined, resting in bed. labs/records/notes reviewed, including ID consult notes. Cxr with PNA., 24hr Tm 102. Patient seen/examined, resting in bed, NR, BP low, and Levo increased back up ,to maintain any appreciable reading. Labs reviewed. I have discussed/updated the daughter Ramón today, discussed code status again, and prognosis,as well as long time plan/disposition.She has signed a Do NOT Resuscitate, and the other family member suppose to sign hers today, or tomorrow. I have recommended, and she is in agreement to the LTAC placement at [facility], where he can also get trached, if, and when feasible. I want the case aide to act on this on timely manner.MRSA positive in the sputum.ID on the case. Patient seen/examined, resting in bed, labs reviewed. Patient is now an AND status.Plan for LTAC referral by the case aide, I have spoken to the family about [facility], and she was in agreement. patient seen/examined, resting in bed, records reviewed, case d/w Dr Garcia.I had already spoken to the primary daughter about LTAC this past week, and she was in agreement. I do not think patient has to be trached/peg here before d/c, and transfer to the LTAC, both the patient, and family will have ample time to think tis over ,if /when it comes to that.I will however continue to speak to them. PLs read notes, so we can all be on the same plan for disposition. patient seen/examined, resting in bed. labs/records reviewed, family meeting held with the 3 Daughters by me. Spent time discussing prognosis, trach/peg. they have agreed to these procedures, even if there could be serious complication. I will consult ENT- Dr West,while waiting on EEG results.Once completed, will transfer to the LTAC as agreed to by the family.I have ensured them , that the prognosis is poor, no matter what is done hence forth. patient seen/examined, resting in bed, discussed EEG results with pulm, and with the Nurse. This an abn EEG, and the family had indicated the wish to proceed with treach/peg.Will consult Gen surgery. Patient seen/examined, resting in bed, not readily responsive. Gen surgery awaiting family meeting between himself, and the family, before proceeding with any surgery. I have had all the meeting needed with the family , and every thing is documented on the notes.Dr Phipps will cover my rounds from monday till monday. I am avalable on the phone [phone]. Patient seen/examined, labs/records reviewed, d/w family 24hrs ago, they still want to go ahead with traech/peg. . I havs spoken tp pulm today, and she remains in aggrement, as i am. patient needs this done, so he can transfer to LTAC. Objective - Constitutional Vitals: Vital Signs - 12hr 11/12/18 11/12/18 11/12/18 11:00 11:15 11:24 Temperature Pulse Rate 101 H 101 H 99 H Pulse Rate [ From Monitor] Respiratory 19 32 H Rate Blood Pressure 112/56 124/61 124/61 O2 Sat by Pulse 93 93 99 Oximetry O2 Sat by Pulse Oximetry [ Bilateral Lower Lobe] 11/12/18 11/12/18 11/12/18 11:30 11:45 11:53 Temperature Pulse Rate 104 H 108 H Pulse Rate [ From Monitor] Respiratory 33 H 29 H 30 H Rate Blood Pressure 132/70 115/58 O2 Sat by Pulse 96 95 Oximetry O2 Sat by Pulse Oximetry [ Bilateral Lower Lobe] 11/12/18 11/12/18 11/12/18 12:00 12:15 12:30 Temperature 98.8 F Pulse Rate 106 H 102 H 101 H Pulse Rate [ 98 H From Monitor] Respiratory 26 H 34 H 27 H Rate Blood Pressure 107/64 112/59 106/51 O2 Sat by Pulse 96 98 97 Oximetry O2 Sat by Pulse Oximetry [ Bilateral Lower Lobe] 11/12/18 11/12/18 11/12/18 12:45 13:00 13:15 Temperature Pulse Rate 98 H 102 H 102 H Pulse Rate [ From Monitor] Respiratory 28 H 28 H 29 H Rate Blood Pressure 96/46 114/53 109/55 O2 Sat by Pulse 95 97 97 Oximetry O2 Sat by Pulse Oximetry [ Bilateral Lower Lobe] 11/12/18 11/12/18 11/12/18 13:30 13:45 14:00 Temperature Pulse Rate 104 H 104 H 102 H Pulse Rate [ From Monitor] Respiratory 30 H 30 H 29 H Rate Blood Pressure 109/54 106/56 109/53 O2 Sat by Pulse 97 98 98 Oximetry O2 Sat by Pulse Oximetry [ Bilateral Lower Lobe] 11/12/18 11/12/18 11/12/18 14:15 14:30 14:45 Temperature 98.8 F Pulse Rate 98 H 100 H 102 H Pulse Rate [ From Monitor] Respiratory 30 H 30 H 30 H Rate Blood Pressure 108/50 120/51 124/54 O2 Sat by Pulse 99 99 99 Oximetry O2 Sat by Pulse 97 Oximetry [ Bilateral Lower Lobe] 11/12/18 11/12/18 11/12/18 15:00 15:15 15:30 Temperature Pulse Rate 102 H 104 H 105 H Pulse Rate [ From Monitor] Respiratory 30 H 27 H 28 H Rate Blood Pressure 110/54 105/52 94/54 O2 Sat by Pulse 99 98 97 Oximetry O2 Sat by Pulse Oximetry [ Bilateral Lower Lobe] 11/12/18 11/12/18 11/12/18 15:45 16:00 16:15 Temperature Pulse Rate 108 H 108 H 110 H Pulse Rate [ 113 H From Monitor] Respiratory 29 H 30 H 28 H Rate Blood Pressure 106/52 105/52 100/52 O2 Sat by Pulse 98 98 98 Oximetry O2 Sat by Pulse Oximetry [ Bilateral Lower Lobe] 11/12/18 11/12/18 11/12/18 16:30 16:45 17:00 Temperature Pulse Rate 112 H 109 H 112 H Pulse Rate [ From Monitor] Respiratory 28 H 29 H 28 H Rate Blood Pressure 103/48 97/49 97/46 O2 Sat by Pulse 98 96 97 Oximetry O2 Sat by Pulse Oximetry [ Bilateral Lower Lobe] 11/12/18 11/12/18 11/12/18 17:12 17:15 17:30 Temperature Pulse Rate 112 H 113 H 112 H Pulse Rate [ From Monitor] Respiratory 27 H 28 H Rate Blood Pressure 97/46 92/50 77/45 O2 Sat by Pulse 97 100 98 Oximetry O2 Sat by Pulse Oximetry [ Bilateral Lower Lobe] 11/12/18 11/12/18 11/12/18 17:45 17:49 18:00 Temperature 98.4 F Pulse Rate 109 H 109 H 108 H Pulse Rate [ From Monitor] Respiratory 28 H 29 H 28 H Rate Blood Pressure 94/50 94/50 94/50 O2 Sat by Pulse 99 100 Oximetry O2 Sat by Pulse 99 Oximetry [ Bilateral Lower Lobe] 11/12/18 11/12/18 11/12/18 18:15 18:30 18:45 Temperature Pulse Rate 109 H 106 H 105 H Pulse Rate [ From Monitor] Respiratory 29 H 28 H 27 H Rate Blood Pressure 112/56 103/45 104/55 O2 Sat by Pulse 100 100 99 Oximetry O2 Sat by Pulse Oximetry [ Bilateral Lower Lobe] 11/12/18 11/12/18 11/12/18 19:00 19:15 19:30 Temperature Pulse Rate 104 H 105 H 100 H Pulse Rate [ From Monitor] Respiratory 29 H 30 H 29 H Rate Blood Pressure 89/50 95/55 104/47 O2 Sat by Pulse 99 99 98 Oximetry O2 Sat by Pulse Oximetry [ Bilateral Lower Lobe] 11/12/18 11/12/18 11/12/18 19:45 20:00 20:02 Temperature 98.3 F Pulse Rate 104 H 106 H 104 H Pulse Rate [ From Monitor] Respiratory 31 H 29 H Rate Blood Pressure 107/49 104/54 104/54 O2 Sat by Pulse 99 100 99 Oximetry O2 Sat by Pulse Oximetry [ Bilateral Lower Lobe] 11/12/18 11/12/18 11/12/18 20:15 20:30 20:45 Temperature Pulse Rate 104 H 104 H 103 H Pulse Rate [ From Monitor] Respiratory 31 H 28 H 27 H Rate Blood Pressure 90/60 104/53 92/46 O2 Sat by Pulse 100 100 100 Oximetry O2 Sat by Pulse Oximetry [ Bilateral Lower Lobe] 11/12/18 11/12/18 21:00 21:15 Temperature Pulse Rate 103 H 102 H Pulse Rate [ From Monitor] Respiratory 31 H 29 H Rate Blood Pressure 105/54 99/50 O2 Sat by Pulse 99 100 Oximetry O2 Sat by Pulse Oximetry [ Bilateral Lower Lobe] General appearance: Present: mild distress, cachectic - EENT Eyes: PERRL, EOM intact ENT: hearing intact, clear oral mucosa Ears: bilateral: normal - Neck Neck: supple, normal ROM - Respiratory Respiratory effort: normal Respiratory: bilateral: diminished (on the vent) - Breasts Breasts: deferred - Cardiovascular Rhythm: regular Heart Sounds: Present: S1 & S2. Absent: gallop, rub Extremities: pulses intact, No edema, normal color, Full ROM - Gastrointestinal General gastrointestinal: Present: soft, non-tender, non-distended, normal bowel sounds Rectal Exam: deferred - Genitourinary Male genitourinary: deferred - Integumentary Integumentary: clear, warm, dry - Labs CBC & Chem 7: 11/12/18 05:15 11/12/18 05:15 Labs: Abnormal lab results 11/11/18 11/11/18 11/12/18 Range/Units 18:06 23:59 04:35 RBC (3.65-5.03) M/mm3 Hgb (11.8-15.2) gm/dl Hct (35.5-45.6) % MCV (84-94) fl MCH (28-32) pg Lymph % (Auto) (13.4-35.0) % [place] % (Auto) (0.0-7.3) % Lymph # (1.2-5.4) K/mm3 Seg Neutrophils % (40.0-70.0) % POC ABG pCO2 31.1 L (35-45) Sodium (137-145) mmol/L Carbon Dioxide (22-30) mmol/L BUN (9-20) mg/dL Creatinine (0.8-1.5) mg/dL Glucose (75-100) mg/dL POC Glucose 209 H 143 H (70-105) Calcium (8.4-10.2) mg/dL AST (5-40) units/L Total Protein (6.3-8.2) g/dL Albumin (3.9-5) g/dL 11/12/18 11/12/18 11/12/18 Range/Units 05:15 05:15 05:29 RBC 2.28 L (3.65-5.03) M/mm3 Hgb 7.4 L (11.8-15.2) gm/dl Hct 22.8 L (35.5-45.6) % MCV 100 H (84-94) fl MCH 33 H (28-32) pg Lymph % (Auto) 8.1 L (13.4-35.0) % [place] % (Auto) 7.9 H (0.0-7.3) % Lymph # 0.5 L (1.2-5.4) K/mm3 Seg Neutrophils % 83.2 H (40.0-70.0) % POC ABG pCO2 (35-45) Sodium 133 L (137-145) mmol/L Carbon Dioxide 21 L (22-30) mmol/L BUN 70 H (9-20) mg/dL Creatinine 2.8 H (0.8-1.5) mg/dL Glucose 165 H (75-100) mg/dL POC Glucose 186 H (70-105) Calcium 7.9 L (8.4-10.2) mg/dL AST 81 H (5-40) units/L Total Protein 5.9 L (6.3-8.2) g/dL Albumin 1.4 L (3.9-5) g/dL 11/12/18 11/12/18 Range/Units 11:18 17:55 RBC (3.65-5.03) M/mm3 Hgb (11.8-15.2) gm/dl Hct (35.5-45.6) % MCV (84-94) fl MCH (28-32) pg Lymph % (Auto) (13.4-35.0) % [place] % (Auto) (0.0-7.3) % Lymph # (1.2-5.4) K/mm3 Seg Neutrophils % (40.0-70.0) % POC ABG pCO2 (35-45) Sodium (137-145) mmol/L Carbon Dioxide (22-30) mmol/L BUN (9-20) mg/dL Creatinine (0.8-1.5) mg/dL Glucose (75-100) mg/dL POC Glucose 153 H 138 H (70-105) Calcium (8.4-10.2) mg/dL AST (5-40) units/L Total Protein (6.3-8.2) g/dL Albumin (3.9-5) g/dL Medications & Allergies - Medications Allergies/Adverse Reactions: Allergies No Known Allergies Allergy (Verified 01/18/18 20:10) Home Medications: Home Medications Medication Instructions Recorded Confirmed Last Taken Type Acetaminophen [Acetaminophen TAB] 650 mg PO Q4H PRN 03/12/18 10/31/18 Unknown History Calcium Acetate [Phoslo] 667 mg PO TID 03/12/18 10/31/18 05/13/18 17:00 History Carvedilol [Coreg] 6.25 mg PO BID 03/12/18 10/31/18 05/13/18 09:00 History Ergocalciferol 50,000 unit PO QWEEK 03/12/18 10/31/18 05/11/18 09:00 History Apixaban [Eliquis] 2.5 mg PO BID tablet 08/21/18 10/31/18 Unknown Rx Megestrol [Megace] 400 mg PO QDAY 10/31/18 10/31/18 Unknown History Mirtazapine [Remeron] 15 mg PO QHS 10/31/18 10/31/18 Unknown History Elaine-José Rx Tablet 1 tab PO QDAY 10/31/18 10/31/18 Unknown History Sodium Bicarbonate 650 mg PO BID 10/31/18 10/31/18 Unknown History traMADol [Ultram 50 MG tab] 25 mg PO Q12H PRN 10/31/18 10/31/18 Unknown History Active Medications: Generic Name Dose Route Start Last Admin Trade Name Freq PRN Reason Stop Dose Admin Acetaminophen 650 mg 11/02/18 09:25 11/09/18 18:46 Tylenol FEEDTUBE 650 mg Q6H PRN Administration Fever >101 Lipase/Protease/Amylase 1 each 11/01/18 10:[address] 10,500 Unit FEEDTUBE PRN PRN For Clogged Feeding Tube Epoetin [place] 20,000 unit 11/05/18 10:21 11/12/18 17:30 Procrit SUB-Q 20,000 unit ALEJO PRN Administration hemodialysis Famotidine 20 mg 11/01/18 10:00 11/12/18 09:14 Pepcid PO 20 mg DAILY KIRSTEN Administration Heparin Sodium (Porcine) 5,000 unit 10/29/18 22:00 11/12/18 21:47 Heparin SUB-Q 5,000 unit Q8HR KIRSTEN Administration Norepinephrine 4 mg in 250 mls @ 7.5 mls/hr 10/30/18 01:00 11/12/18 18:51 Levophed Drip 4 Mg/Ns 250 Ml IV 2 mcg/min TITR KIRSTEN 7.5 mls/hr Titration Protocol 2 MCG/MIN Sodium Chloride 100 mls @ 999 mls/hr 11/09/18 08:48 Nacl 0.9% IV ALEJO PRN Hypotension Cefepime HCl 1 gm in 100 mls @ 200 mls/hr 11/09/18 18:00 11/12/18 18:07 Maxipime/Ns 1 Gm/100 Ml IV 200 mls/hr QPM KIRSTEN Administration Protocol Vancomycin HCl 500 mg/ Sodium 110 mls @ 66.667 mls/hr 11/12/18 22:00 11/12/18 21:47 Chloride IV 66.667 mls/hr MoWeFr KIRSETN Administration Sodium Chloride 100 mls @ 999 mls/hr 11/12/18 08:43 Nacl 0.9% IV ALEJO PRN Hypotension Insulin Human Lispro 0 unit 10/30/18 10:00 11/12/18 18:08 Humalog SUB-Q Not Given Q6HR KIRSTEN Protocol Levetiracetam 500 mg 11/07/18 10:00 11/12/18 21:47 Keppra PO 500 mg BID KIRSTEN Administration Simple Syrup 15 ml 11/01/18 10:04 11/06/18 00:09 Simple Syrup FEEDTUBE 15 ml PRN PRN Administration Hypoglycemia Simple Syrup 30 ml 11/01/18 10:04 Simple Syrup FEEDTUBE PRN PRN Hypoglycemia Sodium Bicarbonate 325 mg 11/01/18 10:04 Sodium Bicarbonate FEEDTUBE PRN PRN For Clogged Feeding Tube
[2018-11-13] MEDS: HumaLOG SUB-Q SCH ×5 (00:10→23:57)
[2018-11-13] MEDS: HEPARIN SUB-Q SCH (05:09)
[2018-11-13 05:29] LABS: Hematocrit 21.6 % (35.5-45.6); Hemoglobin 7.1 gm/dl (11.8-15.2); Mean Corpuscular HGB Conc 33 % (32-34); Mean Corpuscular Volume 101 fl (84-94); Platelet Count 230 K/mm3 (140-440); Red Blood Count 2.15 M/mm3 (3.65-5.03); Red Cell Distribution Width 14.6 % (13.2-15.2)
[2018-11-13 05:51] LABS: Calcium 8.3 mg/dL (8.4-10.2)
--- NOTE | 2018-11-13 08:37 | Progress Note ---
Assessment and Plan 1. ESRD: Continue hemodialysis three times a week. Patient was last dialyzed yesterday. Patient remain hypotensive on pressors. Monitor for [employer] needs. Clotted R arm AVF. 2. FEN: Hypokalemia, replete K as needed. Hypernatremia, improved. UF with HD as tolerated. 3. Respiratory failure: On vent. 4. Septic Shock: On Levophed. 5. Pneumonia. 6. Anemia: Epogen. Subjective Date of service: 11/13/18 Principal diagnosis: sepsis, acute resp, failure. Interval history: Patient was seen and examined at the bedside. Objective - Vital Signs Vital signs: Vital Signs - 12hr 11/12/18 11/12/18 11/12/18 20:45 21:00 21:15 Temperature Pulse Rate 103 H 103 H 102 H Respiratory 27 H 31 H 29 H Rate Blood Pressure 92/46 105/54 99/50 O2 Sat by Pulse 100 99 100 Oximetry 11/12/18 11/12/18 11/12/18 21:30 21:45 22:00 Temperature Pulse Rate 102 H 101 H 101 H Respiratory 29 H 31 H 30 H Rate Blood Pressure 88/47 85/55 108/53 O2 Sat by Pulse 99 99 100 Oximetry 11/12/18 11/12/18 11/12/18 22:15 22:30 22:45 Temperature Pulse Rate 102 H 99 H 98 H Respiratory 29 H 31 H 29 H Rate Blood Pressure 100/52 94/49 96/47 O2 Sat by Pulse 100 98 99 Oximetry 11/12/18 11/12/18 11/12/18 23:00 23:09 23:15 Temperature 98 F Pulse Rate 99 H 98 H Respiratory 29 H 28 H Rate Blood Pressure 93/46 101/51 O2 Sat by Pulse 99 99 Oximetry 11/12/18 11/12/18 11/12/18 23:30 23:45 23:53 Temperature Pulse Rate 99 H 98 H 100 H Respiratory 28 H 29 H 32 H Rate Blood Pressure 78/39 88/46 88/46 O2 Sat by Pulse 99 99 100 Oximetry 11/13/18 11/13/18 11/13/18 00:00 00:15 00:30 Temperature Pulse Rate 98 H 100 H 98 H Respiratory 30 H 31 H 29 H Rate Blood Pressure 96/45 104/50 92/51 O2 Sat by Pulse 99 100 100 Oximetry 11/13/18 11/13/18 11/13/18 00:45 01:00 01:15 Temperature Pulse Rate 99 H 99 H 99 H Respiratory 31 H 30 H 29 H Rate Blood Pressure 96/51 92/47 89/46 O2 Sat by Pulse 99 99 99 Oximetry 11/13/18 11/13/18 11/13/18 01:30 01:45 02:00 Temperature Pulse Rate 100 H 100 H 100 H Respiratory 31 H 29 H 30 H Rate Blood Pressure 97/48 85/45 88/46 O2 Sat by Pulse 100 99 99 Oximetry 11/13/18 11/13/18 11/13/18 02:15 02:30 02:45 Temperature Pulse Rate 99 H 101 H 101 H Respiratory 32 H 31 H 31 H Rate Blood Pressure 86/46 87/43 96/48 O2 Sat by Pulse 99 99 99 Oximetry 11/13/18 11/13/18 11/13/18 03:00 03:15 03:24 Temperature 98.4 F Pulse Rate 100 H 100 H Respiratory 32 H 33 H Rate Blood Pressure 92/47 86/44 O2 Sat by Pulse 98 98 Oximetry 11/13/18 11/13/18 11/13/18 03:30 03:45 04:00 Temperature Pulse Rate 101 H 100 H 104 H Respiratory 31 H 32 H 29 H Rate Blood Pressure 95/48 96/44 85/49 O2 Sat by Pulse 99 98 98 Oximetry 11/13/18 11/13/18 11/13/18 04:13 04:15 04:30 Temperature Pulse Rate 100 H 99 H 99 H Respiratory 32 H 31 H Rate Blood Pressure 85/49 102/51 102/47 O2 Sat by Pulse 99 100 99 Oximetry 11/13/18 11/13/18 11/13/18 04:45 05:00 05:15 Temperature Pulse Rate 100 H 100 H 99 H Respiratory 31 H 31 H 32 H Rate Blood Pressure 89/44 95/49 95/49 O2 Sat by Pulse 98 98 99 Oximetry 11/13/18 11/13/18 11/13/18 05:30 05:45 06:00 Temperature Pulse Rate 99 H 99 H 98 H Respiratory 30 H 31 H 30 H Rate Blood Pressure 95/40 112/55 116/53 O2 Sat by Pulse 98 99 99 Oximetry 11/13/18 11/13/18 11/13/18 06:15 06:30 06:45 Temperature Pulse Rate 99 H 99 H 99 H Respiratory 30 H 30 H 31 H Rate Blood Pressure 91/45 108/53 112/53 O2 Sat by Pulse 98 99 100 Oximetry 11/13/18 11/13/18 11/13/18 07:00 07:15 07:30 Temperature Pulse Rate 100 H 101 H 101 H Respiratory 32 H 32 H 32 H Rate Blood Pressure 101/45 110/50 114/54 O2 Sat by Pulse 99 99 100 Oximetry 11/13/18 11/13/18 11/13/18 07:45 08:00 08:15 Temperature 99.9 F H Pulse Rate 104 H 106 H 103 H Respiratory 31 H 32 H 32 H Rate Blood Pressure 85/36 83/45 110/52 O2 Sat by Pulse 97 97 98 Oximetry 11/13/18 08:30 Temperature Pulse Rate 103 H Respiratory Rate Blood Pressure 102/46 O2 Sat by Pulse 97 Oximetry - General Appearance General appearance: well-developed, appears stated age, cachectic, intubated, other (on vent) EENT: ATNC Respiratory: Present: Clear to Ascultation Cardiology: regular, S1S2, no murmurs Gastrointestinal: normoactive bowel sounds, no tenderness, other (Suprapubic catheter) Neurologic: obtunded Musculoskeletal: other (extremity edema noted, R groin dialysis catheter) - Lab 11/13/18 05:13 11/13/18 05:13 Most recent lab results Calcium 8.3 mg/dL (8.4-10.2) L 11/13/18 05:13 Phosphorus 3.10 mg/dL (2.5-4.5) 11/05/18 06:36 Medications & Allergies - Medications Allergies/Adverse Reactions: Allergies No Known Allergies Allergy (Verified 01/18/18 20:10) Home Medications: Home Medications Medication Instructions Recorded Confirmed Last Taken Type Acetaminophen [Acetaminophen TAB] 650 mg PO Q4H PRN 03/12/18 10/31/18 Unknown History Calcium Acetate [Phoslo] 667 mg PO TID 03/12/18 10/31/18 05/13/18 17:00 History Carvedilol [Coreg] 6.25 mg PO BID 03/12/18 10/31/18 05/13/18 09:00 History Ergocalciferol 50,000 unit PO QWEEK 03/12/18 10/31/18 05/11/18 09:00 History Apixaban [Eliquis] 2.5 mg PO BID tablet 08/21/18 10/31/18 Unknown Rx Megestrol [Megace] 400 mg PO QDAY 10/31/18 10/31/18 Unknown History Mirtazapine [Remeron] 15 mg PO QHS 10/31/18 10/31/18 Unknown History Elaine-José Rx Tablet 1 tab PO QDAY 10/31/18 10/31/18 Unknown History Sodium Bicarbonate 650 mg PO BID 10/31/18 10/31/18 Unknown History traMADol [Ultram 50 MG tab] 25 mg PO Q12H PRN 10/31/18 10/31/18 Unknown History Active Medications: Generic Name Dose Route Start Last Admin Trade Name Freq PRN Reason Stop Dose Admin Acetaminophen 650 mg 11/02/18 09:25 11/09/18 18:46 Tylenol FEEDTUBE 650 mg Q6H PRN Administration Fever >101 Lipase/Protease/Amylase 1 each 11/01/18 10:[address] 10,500 Unit FEEDTUBE PRN PRN For Clogged Feeding Tube Calcium Acetate 667 mg 11/13/18 08:00 Phoslo PO TIDWM KIRSTEN Epoetin [place] 20,000 unit 11/05/18 10:21 11/12/18 17:30 Procrit SUB-Q 20,000 unit ALEJO PRN Administration hemodialysis Ergocalciferol 50,000 unit 11/16/18 10:00 Vitamin D2 PO Fr KIRSTEN Famotidine 20 mg 11/01/18 10:00 11/12/18 09:14 Pepcid PO 20 mg DAILY KIRSTEN Administration Heparin Sodium (Porcine) 5,000 unit 10/29/18 22:00 11/13/18 05:09 Heparin SUB-Q 5,000 unit Q8HR KIRSTEN Administration Norepinephrine 4 mg in 250 mls @ 7.5 mls/hr 10/30/18 01:00 11/13/18 06:15 Levophed Drip 4 Mg/Ns 250 Ml IV 6 mcg/min TITR KIRSTEN 22.5 mls/hr Titration Protocol 2 MCG/MIN Sodium Chloride 100 mls @ 999 mls/hr 11/09/18 08:48 Nacl 0.9% IV ALEJO PRN Hypotension Cefepime HCl 1 gm in 100 mls @ 200 mls/hr 11/09/18 18:00 11/12/18 18:07 Maxipime/Ns 1 Gm/100 Ml IV 200 mls/hr QPM KIRSTEN Administration Protocol Vancomycin HCl 500 mg/ Sodium 110 mls @ 66.667 mls/hr 11/12/18 22:00 11/12/18 21:47 Chloride IV 66.667 mls/hr MoWeFr KIRSTEN Administration Sodium Chloride 100 mls @ 999 mls/hr 11/12/18 08:43 Nacl 0.9% IV ALEJO PRN Hypotension Insulin Human Lispro 0 unit 10/30/18 10:00 11/13/18 06:17 Humalog SUB-Q 3 unit Q6HR KIRSTEN Administration Protocol Levetiracetam 500 mg 11/07/18 10:00 11/12/18 21:47 Keppra PO 500 mg BID KIRSTEN Administration Megestrol Acetate 400 mg 11/13/18 10:00 Megace PO QDAY KIRSTEN Multivit/Ca Carb/B Cmplx/FA/Prenat 1 cap 11/13/18 10:00 Renal Caps PO QDAY KIRSTEN Simple Syrup 15 ml 11/01/18 10:04 11/06/18 00:09 Simple Syrup FEEDTUBE 15 ml PRN PRN Administration Hypoglycemia Simple Syrup 30 ml 11/01/18 10:04 Simple Syrup FEEDTUBE PRN PRN Hypoglycemia Sodium Bicarbonate 325 mg 11/01/18 10:04 Sodium Bicarbonate FEEDTUBE PRN PRN For Clogged Feeding Tube Sodium Bicarbonate 650 mg 11/13/18 10:00 Sodium Bicarbonate PO BID [facility]
[2018-11-13] MEDS: PHOSLO PO SCH ×3 (09:11→17:10)
[2018-11-13] MEDS: Renal Caps PO SCH (09:47)
[2018-11-13] MEDS: PEPCID PO SCH (09:47)
[2018-11-13] MEDS: KEPPRA PO SCH ×2 (09:47→21:00)
[2018-11-13] MEDS: SODIUM BICARBONATE PO SCH ×2 (09:47→21:00)
[2018-11-13 09:57] LABS: Anisocytosis 1+; Band Neutrophils # (Manual) 0.5 K/mm3; Basophils % (Manual) 0 % (0.0-1.8); Eosinophils % (Manual) 0 % (0.0-4.3); Total Cells Counted 100
[2018-11-13 09:58] LABS: Platelet Estimate Consistent w Auto; Toxic Granulation Few
[2018-11-13] MEDS ORDERED: MEGACE PO SCH (10:00)
[2018-11-13] MEDS ORDERED: NON-FORMULARY (Rena-Vite Rx Tablet 1 TAB) PO SCH (10:00)
--- NOTE | 2018-11-13 10:11 | Progress Note ---
Assessment and Plan -s/p PEA arrest -Severe sepsis with septic shock -Fevers, Tracheal aspirate positive for MRSA -Acute hypoxic respiratory failure on MVS -Acute encephalopathy ( toxic, metabolic) -Severe protein calorie malnutrition -Hyperkalemia (resolved) -ESRD on HD, clotted graft femoral HD catheter -Hyperosmolar hyperglycemic state( improving) -Hypotension, multifactorial, ?sepsis, dehydration -Hypernatremia, resolved -PVD s/p right BKA -Prostate cancer s/p suprapubic catheter -Continue with MVS -Lung protective strategies -VAP bundle addressed. -Supplemental oxygen, wean for O2 sats>90% -Daily SBTs as tolerated -VTE prophylaxis( heparin) -Stress ulcer prophylaxis( Famotidine) -High dose sliding scale insulin with accuchecks -Tube feedings with aspiration precautions -Glycemic control, target blood glucose of 140-180mg/dL -Free water flushes -Continue wound care by wound care team -Supportive HD -Wean vasopressor support for MAP>65 -Neurology notes reviewed and appreciated. -NPO past midnight, start [id number] once NPO -ABG and CXR in am -Complete antibiotics- on Cefepime 12/05, Vancomycin -Trach and PEG scheduled for possible tomorrow -Start midodrine for blood pressure support Dispo---LTACH for weaning CONDITION: CRITICAL PROGNOSIS: GUARDED CODE STATUS: DNAR I have spent 35 minutes in the direct care of this critically ill patient, excluding procedure time. Critical care time was spent on this patient and during his initial evaluation, multiple re-evaluations, ordering and interpretation of labs and imaging, medications, discussion with the ICU care team. There is a high probability of clinically significant, sudden, or life- threatening deterioration that has required multiple evaluations and direct attention, intervention, and management. Subjective Date of service: 11/13/18 Principal diagnosis: sepsis, acute resp, failure. Interval history: Patient is seen today for: Acute hypoxemic respiratory failure on MVS; Severe sepsis with septic shock; acute encephaloapthy; persistent hypotension Seen and examined at bedside; 24hour events reviewed; nursing and respiratory care staff consulted; No fevers overnight, remains on norepinephrine for hemodynamic support( currently on 4mcg), labile blood pressure Remains unresponsive, on mechanical ventilatory support, no dys-synchrony Vent AC- 12/350/6/35% ABG none today. Objective - Exam Narrative Exam: Constitutional: unresponsive, intubated No dyssynchrony Head, Ears, Nose: Normocephalic, atraumatic. External ears, nose normal Eyes: Conjunctivae/corneas clear. No icterus. Lateral gaze, fixed Neck: Supple, no meningeal signs Oral: intubated Cardiovascular: RRR, S1, S2 normal. Respiratory: Good air entry, clear to auscultation bilaterally GI: Soft, bowel sounds hypoactive. Suprapubic cath + with cloudy urine, with some purulence around the catheter site Musculoskeletal: Right AKA, left TMA stumps healed. Right gluteal region with eschar. Left femoral HD cath + Skin: No rash or abscess Hem/Lymphatic: No palpable cervical or supraclavicular nodes. No lymphangitis Psych: no agitation Neurological: unresponsive, intubated, on vent Vital Signs - 12hr 11/12/18 11/12/18 11/12/18 22:15 22:30 22:45 Temperature Pulse Rate 102 H 99 H 98 H Respiratory 29 H 31 H 29 H Rate Blood Pressure 100/52 94/49 96/47 O2 Sat by Pulse 100 98 99 Oximetry 11/12/18 11/12/18 11/12/18 23:00 23:09 23:15 Temperature 98 F Pulse Rate 99 H 98 H Respiratory 29 H 28 H Rate Blood Pressure 93/46 101/51 O2 Sat by Pulse 99 99 Oximetry 11/12/18 11/12/18 11/12/18 23:30 23:45 23:53 Temperature Pulse Rate 99 H 98 H 100 H Respiratory 28 H 29 H 32 H Rate Blood Pressure 78/39 88/46 88/46 O2 Sat by Pulse 99 99 100 Oximetry 11/13/18 11/13/18 11/13/18 00:00 00:15 00:30 Temperature Pulse Rate 98 H 100 H 98 H Respiratory 30 H 31 H 29 H Rate Blood Pressure 96/45 104/50 92/51 O2 Sat by Pulse 99 100 100 Oximetry 11/13/18 11/13/18 11/13/18 00:45 01:00 01:15 Temperature Pulse Rate 99 H 99 H 99 H Respiratory 31 H 30 H 29 H Rate Blood Pressure 96/51 92/47 89/46 O2 Sat by Pulse 99 99 99 Oximetry 11/13/18 11/13/18 11/13/18 01:30 01:45 02:00 Temperature Pulse Rate 100 H 100 H 100 H Respiratory 31 H 29 H 30 H Rate Blood Pressure 97/48 85/45 88/46 O2 Sat by Pulse 100 99 99 Oximetry 11/13/18 11/13/18 11/13/18 02:15 02:30 02:45 Temperature Pulse Rate 99 H 101 H 101 H Respiratory 32 H 31 H 31 H Rate Blood Pressure 86/46 87/43 96/48 O2 Sat by Pulse 99 99 99 Oximetry 11/13/18 11/13/18 11/13/18 03:00 03:15 03:24 Temperature 98.4 F Pulse Rate 100 H 100 H Respiratory 32 H 33 H Rate Blood Pressure 92/47 86/44 O2 Sat by Pulse 98 98 Oximetry 11/13/18 11/13/18 11/13/18 03:30 03:45 04:00 Temperature Pulse Rate 101 H 100 H 104 H Respiratory 31 H 32 H 29 H Rate Blood Pressure 95/48 96/44 85/49 O2 Sat by Pulse 99 98 98 Oximetry 11/13/18 11/13/18 11/13/18 04:13 04:15 04:30 Temperature Pulse Rate 100 H 99 H 99 H Respiratory 32 H 31 H Rate Blood Pressure 85/49 102/51 102/47 O2 Sat by Pulse 99 100 99 Oximetry 11/13/18 11/13/18 11/13/18 04:45 05:00 05:15 Temperature Pulse Rate 100 H 100 H 99 H Respiratory 31 H 31 H 32 H Rate Blood Pressure 89/44 95/49 95/49 O2 Sat by Pulse 98 98 99 Oximetry 11/13/18 11/13/18 11/13/18 05:30 05:45 06:00 Temperature Pulse Rate 99 H 99 H 98 H Respiratory 30 H 31 H 30 H Rate Blood Pressure 95/40 112/55 116/53 O2 Sat by Pulse 98 99 99 Oximetry 11/13/18 11/13/18 11/13/18 06:15 06:30 06:45 Temperature Pulse Rate 99 H 99 H 99 H Respiratory 30 H 30 H 31 H Rate Blood Pressure 91/45 108/53 112/53 O2 Sat by Pulse 98 99 100 Oximetry 11/13/18 11/13/18 11/13/18 07:00 07:15 07:30 Temperature Pulse Rate 100 H 101 H 101 H Respiratory 32 H 32 H 32 H Rate Blood Pressure 101/45 110/50 114/54 O2 Sat by Pulse 99 99 100 Oximetry 11/13/18 11/13/18 11/13/18 07:45 08:00 08:15 Temperature 99.9 F H Pulse Rate 104 H 109 H 103 H Respiratory 31 H 32 H 32 H Rate Blood Pressure 85/36 83/45 110/52 O2 Sat by Pulse 97 97 98 Oximetry 11/13/18 11/13/18 11/13/18 08:30 08:45 09:00 Temperature Pulse Rate 103 H 103 H 106 H Respiratory 34 H 35 H 16 Rate Blood Pressure 102/46 117/50 120/65 O2 Sat by Pulse 98 98 91 Oximetry 11/13/18 11/13/18 11/13/18 09:16 09:30 09:45 Temperature Pulse Rate 106 H 109 H 110 H Respiratory 26 H 35 H 36 H Rate Blood Pressure 59/37 114/47 121/47 O2 Sat by Pulse 100 94 Oximetry CBC and BMP: 11/13/18 05:13 11/13/18 05:13 ABG, PT/INR, D-dimer: ABG POC ABG pH 7.403 (7.35-7.45) 11/12/18 04:35 POC ABG pCO2 31.1 (35-45) L 11/12/18 04:35 POC ABG pO2 82 (80-105) 11/12/18 04:35 POC ABG HCO3 19.4 (22-26 mml/L) 11/12/18 04:35 POC ABG Total CO2 20 (23-27mmol/L) 11/12/18 04:35 POC ABG O2 Sat 96 11/12/18 04:35 PT/INR, D-dimer PT 15.8 Sec. (12.2-14.9) H 11/08/18 07:09 INR 1.18 (0.87-1.13) H 11/08/18 07:09 Abnormal lab findings: Abnormal Labs 10/29/18 10/29/18 10/29/18 17:13 17:13 17:13 RBC 3.62 L Hgb Hct MCV 102 H MCH 34 H RDW 19.6 H Plt Count Lymph % (Auto) [place] % (Auto) 7.8 H Lymph # Seg Neutrophils % 71.2 H Seg Neuts % (Manual) Lymphocytes % (Manual) Monocytes % (Manual) Seg Neutrophils # Lymphocytes # (Manual) PT INR POC ABG pH POC ABG pCO2 POC ABG pO2 Sodium 164 H* Potassium 6.2 H* Chloride 127.5 H Carbon Dioxide BUN 178 H Creatinine 4.2 H Glucose 131 H POC Glucose Calcium 10.7 H AST C-Reactive Protein Total Protein 9.5 H Albumin 2.6 L TSH 5.310 H Urine pH Urine WBC (Auto) Vancomycin Trough 10/29/18 10/30/18 10/30/18 23:57 00:06 04:35 RBC Hgb Hct MCV MCH RDW Plt Count Lymph % (Auto) [place] % (Auto) Lymph # Seg Neutrophils % Seg Neuts % (Manual) Lymphocytes % (Manual) Monocytes % (Manual) Seg Neutrophils # Lymphocytes # (Manual) PT INR POC ABG pH 7.488 H POC ABG pCO2 32.1 L 34.9 L POC ABG pO2 144 H Sodium Potassium Chloride Carbon Dioxide BUN Creatinine Glucose POC Glucose 131 H Calcium AST C-Reactive Protein Total Protein Albumin TSH Urine pH Urine WBC (Auto) Vancomycin Trough 10/30/18 10/30/18 10/30/18 05:13 08:54 08:54 RBC 3.56 L Hgb 11.7 L Hct MCV 102 H MCH 33 H RDW 19.2 H Plt Count Lymph % (Auto) [place] % (Auto) Lymph # Seg Neutrophils % Seg Neuts % (Manual) Lymphocytes % (Manual) Monocytes % (Manual) Seg Neutrophils # Lymphocytes # (Manual) PT INR POC ABG pH POC ABG pCO2 POC ABG pO2 Sodium Potassium Chloride Carbon Dioxide BUN Creatinine Glucose POC Glucose 316 H Calcium AST C-Reactive Protein 5.20 H Total Protein Albumin 2.2 L TSH Urine pH Urine WBC (Auto) Vancomycin Trough 10/30/18 10/30/18 10/30/18 08:59 12:03 18:30 RBC Hgb Hct MCV MCH RDW Plt Count Lymph % (Auto) [place] % (Auto) Lymph # Seg Neutrophils % Seg Neuts % (Manual) Lymphocytes % (Manual) Monocytes % (Manual) Seg Neutrophils # Lymphocytes # (Manual) PT INR POC ABG pH POC ABG pCO2 POC ABG pO2 Sodium 146 H D Potassium Chloride Carbon Dioxide BUN 86 H Creatinine 2.7 H Glucose 262 H POC Glucose 232 H 57 L Calcium AST C-Reactive Protein Total Protein Albumin TSH Urine pH Urine WBC (Auto) Vancomycin Trough 10/30/18 10/30/18 10/30/18 18:39 19:07 19:42 RBC Hgb Hct MCV MCH RDW Plt Count Lymph % (Auto) [place] % (Auto) Lymph # Seg Neutrophils % Seg Neuts % (Manual) Lymphocytes % (Manual) Monocytes % (Manual) Seg Neutrophils # Lymphocytes # (Manual) PT INR POC ABG pH POC ABG pCO2 POC ABG pO2 Sodium Potassium Chloride Carbon Dioxide BUN Creatinine Glucose POC Glucose < 40 L 51 L Calcium AST C-Reactive Protein Total Protein Albumin TSH Urine pH 8.0 H Urine WBC (Auto) > 182.0 H Vancomycin Trough 10/30/18 10/30/18 10/30/18 19:51 23:13 23:20 RBC Hgb Hct MCV MCH RDW Plt Count Lymph % (Auto) [place] % (Auto) Lymph # Seg Neutrophils % Seg Neuts % (Manual) Lymphocytes % (Manual) Monocytes % (Manual) Seg Neutrophils # Lymphocytes # (Manual) PT INR POC ABG pH POC ABG pCO2 POC ABG pO2 Sodium Potassium Chloride 108.5 H Carbon Dioxide 21 L BUN 96 H Creatinine 3.0 H Glucose 865 H* 150 H POC Glucose 152 H Calcium AST C-Reactive Protein Total Protein Albumin TSH Urine pH Urine WBC (Auto) Vancomycin Trough 10/30/18 10/31/18 10/31/18 23:40 04:43 04:43 RBC Hgb Hct MCV 100 H MCH 33 H RDW 18.1 H Plt Count Lymph % (Auto) [place] % (Auto) Lymph # Seg Neutrophils % Seg Neuts % (Manual) Lymphocytes % (Manual) 4.0 L Monocytes % (Manual) Seg Neutrophils # Lymphocytes # (Manual) 0.3 L PT INR POC ABG pH POC ABG pCO2 POC ABG pO2 Sodium Potassium Chloride Carbon Dioxide 19 L BUN 98 H Creatinine 3.2 H Glucose 184 H POC Glucose 145 H Calcium AST C-Reactive Protein Total Protein Albumin TSH Urine pH Urine WBC (Auto) Vancomycin Trough 10/31/18 10/31/18 10/31/18 05:44 11:44 13:19 RBC Hgb Hct MCV MCH RDW Plt Count Lymph % (Auto) [place] % (Auto) Lymph # Seg Neutrophils % Seg Neuts % (Manual) Lymphocytes % (Manual) Monocytes % (Manual) Seg Neutrophils # Lymphocytes # (Manual) PT INR POC ABG pH POC ABG pCO2 POC ABG pO2 64 L Sodium Potassium Chloride Carbon Dioxide BUN Creatinine Glucose POC Glucose 142 H 196 H Calcium AST C-Reactive Protein Total Protein Albumin TSH Urine pH Urine WBC (Auto) Vancomycin Trough 10/31/18 11/01/18 11/01/18 17:36 04:07 04:07 RBC 3.40 L Hgb 11.2 L Hct 33.6 L MCV 99 H MCH 33 H RDW 17.5 H Plt Count Lymph % (Auto) [place] % (Auto) Lymph # Seg Neutrophils % Seg Neuts % (Manual) 80.0 H Lymphocytes % (Manual) 4.0 L Monocytes % (Manual) Seg Neutrophils # Lymphocytes # (Manual) 0.3 L PT INR POC ABG pH POC ABG pCO2 POC ABG pO2 Sodium Potassium Chloride Carbon Dioxide 19 L BUN 108 H Creatinine 3.9 H Glucose 138 H POC Glucose 174 H Calcium 7.9 L AST C-Reactive Protein Total Protein Albumin TSH Urine pH Urine WBC (Auto) Vancomycin Trough 11/01/18 11/01/18 11/01/18 05:24 05:36 13:09 RBC Hgb Hct MCV MCH RDW Plt Count Lymph % (Auto) [place] % (Auto) Lymph # Seg Neutrophils % Seg Neuts % (Manual) Lymphocytes % (Manual) Monocytes % (Manual) Seg Neutrophils # Lymphocytes # (Manual) PT INR POC ABG pH POC ABG pCO2 POC ABG pO2 65 L Sodium Potassium Chloride Carbon Dioxide BUN Creatinine Glucose POC Glucose 153 H 249 H Calcium AST C-Reactive Protein Total Protein Albumin TSH Urine pH Urine WBC (Auto) Vancomycin Trough 11/01/18 11/02/18 11/02/18 18:11 05:04 07:17 RBC 3.08 L Hgb 10.1 L Hct 30.1 L MCV 98 H MCH 33 H RDW 16.7 H Plt Count Lymph % (Auto) [place] % (Auto) Lymph # Seg Neutrophils % Seg Neuts % (Manual) 92.0 H Lymphocytes % (Manual) 3.0 L Monocytes % (Manual) Seg Neutrophils # Lymphocytes # (Manual) 0.2 L PT INR POC ABG pH POC ABG pCO2 POC ABG pO2 Sodium Potassium Chloride Carbon Dioxide BUN Creatinine Glucose POC Glucose 175 H 118 H Calcium AST C-Reactive Protein Total Protein Albumin TSH Urine pH Urine WBC (Auto) Vancomycin Trough 11/02/18 11/02/18 11/02/18 07:54 09:32 12:28 RBC Hgb Hct MCV MCH RDW Plt Count Lymph % (Auto) [place] % (Auto) Lymph # Seg Neutrophils % Seg Neuts % (Manual) Lymphocytes % (Manual) Monocytes % (Manual) Seg Neutrophils # Lymphocytes # (Manual) PT INR POC ABG pH 7.514 H POC ABG pCO2 POC ABG pO2 70 L Sodium 135 L Potassium Chloride Carbon Dioxide BUN 48 H Creatinine 2.2 H Glucose 170 H POC Glucose 242 H Calcium 7.4 L AST C-Reactive Protein Total Protein Albumin TSH Urine pH Urine WBC (Auto) Vancomycin Trough 11/02/18 11/03/18 11/03/18 23:32 04:34 05:10 RBC 2.87 L Hgb 9.4 L Hct 28.5 L MCV 99 H MCH 33 H RDW 16.7 H Plt Count Lymph % (Auto) [place] % (Auto) Lymph # Seg Neutrophils % Seg Neuts % (Manual) 91.0 H Lymphocytes % (Manual) 4.0 L Monocytes % (Manual) Seg Neutrophils # Lymphocytes # (Manual) 0.3 L PT INR POC ABG pH POC ABG pCO2 33.2 L POC ABG pO2 76 L Sodium Potassium Chloride Carbon Dioxide BUN Creatinine Glucose POC Glucose 177 H Calcium AST C-Reactive Protein Total Protein Albumin TSH Urine pH Urine WBC (Auto) Vancomycin Trough 11/03/18 11/03/18 11/03/18 06:04 12:26 18:43 RBC Hgb Hct MCV MCH RDW Plt Count Lymph % (Auto) [place] % (Auto) Lymph # Seg Neutrophils % Seg Neuts % (Manual) Lymphocytes % (Manual) Monocytes % (Manual) Seg Neutrophils # Lymphocytes # (Manual) PT INR POC ABG pH POC ABG pCO2 POC ABG pO2 Sodium Potassium Chloride Carbon Dioxide BUN Creatinine Glucose POC Glucose 168 H 196 H 153 H Calcium AST C-Reactive Protein Total Protein Albumin TSH Urine pH Urine WBC (Auto) Vancomycin Trough 11/03/18 11/04/18 11/04/18 23:34 03:50 05:05 RBC 2.74 L Hgb 9.1 L Hct 27.3 L MCV 99 H MCH 33 H RDW 16.5 H Plt Count Lymph % (Auto) [place] % (Auto) Lymph # Seg Neutrophils % Seg Neuts % (Manual) 87.0 H Lymphocytes % (Manual) 7.0 L Monocytes % (Manual) Seg Neutrophils # Lymphocytes # (Manual) 0.5 L PT INR POC ABG pH POC ABG pCO2 31.7 L POC ABG pO2 74 L Sodium Potassium Chloride Carbon Dioxide BUN Creatinine Glucose POC Glucose 213 H Calcium AST C-Reactive Protein Total Protein Albumin TSH Urine pH Urine WBC (Auto) Vancomycin Trough 11/04/18 11/04/18 11/04/18 05:05 05:23 12:26 RBC Hgb Hct MCV MCH RDW Plt Count Lymph % (Auto) [place] % (Auto) Lymph # Seg Neutrophils % Seg Neuts % (Manual) Lymphocytes % (Manual) Monocytes % (Manual) Seg Neutrophils # Lymphocytes # (Manual) PT INR POC ABG pH POC ABG pCO2 POC ABG pO2 Sodium Potassium Chloride Carbon Dioxide BUN 84 H Creatinine 3.3 H Glucose 177 H POC Glucose 196 H 182 H Calcium 7.6 L AST C-Reactive Protein Total Protein Albumin TSH Urine pH Urine WBC (Auto) Vancomycin Trough 11/04/18 11/04/18 11/05/18 13:25 22:36 05:07 RBC Hgb Hct MCV MCH RDW Plt Count Lymph % (Auto) [place] % (Auto) Lymph # Seg Neutrophils % Seg Neuts % (Manual) Lymphocytes % (Manual) Monocytes % (Manual) Seg Neutrophils # Lymphocytes # (Manual) PT INR POC ABG pH POC ABG pCO2 30.1 L POC ABG pO2 63 L Sodium Potassium Chloride Carbon Dioxide BUN Creatinine Glucose POC Glucose 159 H Calcium AST C-Reactive Protein Total Protein Albumin TSH Urine pH Urine WBC (Auto) Vancomycin Trough 4.4 L 11/05/18 11/05/18 11/05/18 05:42 06:36 12:54 RBC Hgb Hct MCV MCH RDW Plt Count Lymph % (Auto) [place] % (Auto) Lymph # Seg Neutrophils % Seg Neuts % (Manual) Lymphocytes % (Manual) Monocytes % (Manual) Seg Neutrophils # Lymphocytes # (Manual) PT INR POC ABG pH POC ABG pCO2 POC ABG pO2 Sodium 134 L Potassium 3.4 L Chloride Carbon Dioxide 18 L BUN 93 H Creatinine 3.7 H Glucose 230 H POC Glucose 233 H 237 H Calcium 7.8 L AST C-Reactive Protein Total Protein Albumin TSH Urine pH Urine WBC (Auto) Vancomycin Trough 11/05/18 11/05/18 11/06/18 19:36 23:35 01:59 RBC Hgb Hct MCV MCH RDW Plt Count Lymph % (Auto) [place] % (Auto) Lymph # Seg Neutrophils % Seg Neuts % (Manual) Lymphocytes % (Manual) Monocytes % (Manual) Seg Neutrophils # Lymphocytes # (Manual) PT INR POC ABG pH POC ABG pCO2 POC ABG pO2 Sodium Potassium Chloride Carbon Dioxide BUN Creatinine Glucose POC Glucose 174 H 56 L 112 H Calcium AST C-Reactive Protein Total Protein Albumin TSH Urine pH Urine WBC (Auto) Vancomycin Trough 11/06/18 11/06/18 11/06/18 04:33 05:06 07:24 RBC 2.83 L Hgb 9.3 L Hct 27.9 L MCV 99 H MCH 33 H RDW 15.9 H Plt Count 133 L Lymph % (Auto) [place] % (Auto) Lymph # Seg Neutrophils % Seg Neuts % (Manual) 94.0 H Lymphocytes % (Manual) 4.0 L Monocytes % (Manual) Seg Neutrophils # Lymphocytes # (Manual) 0.3 L PT INR POC ABG pH POC ABG pCO2 32.4 L POC ABG pO2 73 L Sodium Potassium Chloride Carbon Dioxide BUN Creatinine Glucose POC Glucose 139 H Calcium AST C-Reactive Protein Total Protein Albumin TSH Urine pH Urine WBC (Auto) Vancomycin Trough 11/06/18 11/06/18 11/06/18 07:24 11:52 17:16 RBC Hgb Hct MCV MCH RDW Plt Count Lymph % (Auto) [place] % (Auto) Lymph # Seg Neutrophils % Seg Neuts % (Manual) Lymphocytes % (Manual) Monocytes % (Manual) Seg Neutrophils # Lymphocytes # (Manual) PT INR POC ABG pH POC ABG pCO2 POC ABG pO2 Sodium 136 L Potassium 3.2 L Chloride Carbon Dioxide BUN 59 H Creatinine 2.3 H Glucose 137 H POC Glucose 212 H 194 H Calcium 7.4 L AST C-Reactive Protein Total Protein Albumin TSH Urine pH Urine WBC (Auto) Vancomycin Trough 11/07/18 11/07/18 11/07/18 00:44 05:56 06:12 RBC 2.64 L Hgb 8.7 L Hct 26.3 L MCV 100 H MCH 33 H RDW 15.7 H Plt Count Lymph % (Auto) 4.6 L [place] % (Auto) Lymph # 0.4 L Seg Neutrophils % 89.4 H Seg Neuts % (Manual) Lymphocytes % (Manual) Monocytes % (Manual) Seg Neutrophils # 8.3 H Lymphocytes # (Manual) PT INR POC ABG pH POC ABG pCO2 POC ABG pO2 Sodium Potassium Chloride Carbon Dioxide BUN Creatinine Glucose POC Glucose 193 H 145 H Calcium AST C-Reactive Protein Total Protein Albumin TSH Urine pH Urine WBC (Auto) Vancomycin Trough 11/07/18 11/07/18 11/07/18 06:12 12:20 17:27 RBC Hgb Hct MCV MCH RDW Plt Count Lymph % (Auto) [place] % (Auto) Lymph # Seg Neutrophils % Seg Neuts % (Manual) Lymphocytes % (Manual) Monocytes % (Manual) Seg Neutrophils # Lymphocytes # (Manual) PT INR POC ABG pH POC ABG pCO2 POC ABG pO2 Sodium Potassium Chloride Carbon Dioxide BUN 74 H Creatinine 2.8 H Glucose 143 H POC Glucose 207 H 170 H Calcium 7.7 L AST C-Reactive Protein Total Protein Albumin TSH Urine pH Urine WBC (Auto) Vancomycin Trough 11/07/18 11/08/18 11/08/18 23:40 06:04 07:09 RBC Hgb Hct MCV MCH RDW Plt Count Lymph % (Auto) [place] % (Auto) Lymph # Seg Neutrophils % Seg Neuts % (Manual) Lymphocytes % (Manual) Monocytes % (Manual) Seg Neutrophils # Lymphocytes # (Manual) PT 15.8 H INR 1.18 H POC ABG pH POC ABG pCO2 POC ABG pO2 Sodium Potassium Chloride Carbon Dioxide BUN Creatinine Glucose POC Glucose 188 H 170 H Calcium AST C-Reactive Protein Total Protein Albumin TSH Urine pH Urine WBC (Auto) Vancomycin Trough 11/08/18 11/08/18 11/08/18 11:21 18:29 23:10 RBC Hgb Hct MCV MCH RDW Plt Count Lymph % (Auto) [place] % (Auto) Lymph # Seg Neutrophils % Seg Neuts % (Manual) Lymphocytes % (Manual) Monocytes % (Manual) Seg Neutrophils # Lymphocytes # (Manual) PT INR POC ABG pH POC ABG pCO2 POC ABG pO2 Sodium Potassium Chloride Carbon Dioxide BUN Creatinine Glucose POC Glucose 191 H 224 H 197 H Calcium AST C-Reactive Protein Total Protein Albumin TSH Urine pH Urine WBC (Auto) Vancomycin Trough 11/09/18 11/09/18 11/09/18 04:59 07:35 07:35 RBC 2.51 L Hgb 8.3 L Hct 25.3 L MCV 101 H MCH 33 H RDW Plt Count Lymph % (Auto) [place] % (Auto) Lymph # Seg Neutrophils % Seg Neuts % (Manual) 79.0 H Lymphocytes % (Manual) 8.0 L Monocytes % (Manual) 9.0 H Seg Neutrophils # Lymphocytes # (Manual) 0.6 L PT INR POC ABG pH POC ABG pCO2 POC ABG pO2 Sodium 133 L Potassium 3.5 L Chloride Carbon Dioxide BUN 54 H Creatinine 2.4 H Glucose 166 H POC Glucose 173 H Calcium 8.0 L AST C-Reactive Protein Total Protein Albumin TSH Urine pH Urine WBC (Auto) Vancomycin Trough 11/09/18 11/09/18 11/09/18 11:47 15:17 17:15 RBC Hgb Hct MCV MCH RDW Plt Count Lymph % (Auto) [place] % (Auto) Lymph # Seg Neutrophils % Seg Neuts % (Manual) Lymphocytes % (Manual) Monocytes % (Manual) Seg Neutrophils # Lymphocytes # (Manual) PT INR POC ABG pH POC ABG pCO2 POC ABG pO2 75 L Sodium Potassium Chloride Carbon Dioxide BUN Creatinine Glucose POC Glucose 226 H 202 H Calcium AST C-Reactive Protein Total Protein Albumin TSH Urine pH Urine WBC (Auto) Vancomycin Trough 11/10/18 11/10/18 11/10/18 00:04 04:34 04:34 RBC 2.36 L Hgb 7.8 L Hct 24.1 L MCV 102 H MCH 33 H RDW Plt Count Lymph % (Auto) [place] % (Auto) Lymph # Seg Neutrophils % Seg Neuts % (Manual) 82.0 H Lymphocytes % (Manual) 6.0 L Monocytes % (Manual) Seg Neutrophils # Lymphocytes # (Manual) 0.3 L PT INR POC ABG pH POC ABG pCO2 POC ABG pO2 Sodium 136 L Potassium 3.2 L Chloride Carbon Dioxide BUN 39 H Creatinine 2.0 H Glucose 152 H POC Glucose 197 H Calcium 8.3 L AST C-Reactive Protein Total Protein 6.0 L Albumin 1.4 L TSH Urine pH Urine WBC (Auto) Vancomycin Trough 11/10/18 11/10/18 11/10/18 05:12 12:01 17:48 RBC Hgb Hct MCV MCH RDW Plt Count Lymph % (Auto) [place] % (Auto) Lymph # Seg Neutrophils % Seg Neuts % (Manual) Lymphocytes % (Manual) Monocytes % (Manual) Seg Neutrophils # Lymphocytes # (Manual) PT INR POC ABG pH POC ABG pCO2 POC ABG pO2 Sodium Potassium Chloride Carbon Dioxide BUN Creatinine Glucose POC Glucose 163 H 139 H 215 H Calcium AST C-Reactive Protein Total Protein Albumin TSH Urine pH Urine WBC (Auto) Vancomycin Trough 11/10/18 11/11/18 11/11/18 23:51 04:45 06:05 RBC Hgb Hct MCV MCH RDW Plt Count Lymph % (Auto) [place] % (Auto) Lymph # Seg Neutrophils % Seg Neuts % (Manual) Lymphocytes % (Manual) Monocytes % (Manual) Seg Neutrophils # Lymphocytes # (Manual) PT INR POC ABG pH POC ABG pCO2 34.2 L POC ABG pO2 Sodium Potassium Chloride Carbon Dioxide BUN Creatinine Glucose POC Glucose 243 H 175 H Calcium AST C-Reactive Protein Total Protein Albumin TSH Urine pH Urine WBC (Auto) Vancomycin Trough 11/11/18 11/11/18 11/11/18 06:07 06:07 18:06 RBC 2.27 L Hgb 7.6 L Hct 22.6 L MCV 100 H MCH 33 H RDW Plt Count Lymph % (Auto) 10.7 L [place] % (Auto) Lymph # 0.6 L Seg Neutrophils % 81.0 H Seg Neuts % (Manual) 81.0 H Lymphocytes % (Manual) 11.0 L Monocytes % (Manual) Seg Neutrophils # Lymphocytes # (Manual) 0.6 L PT INR POC ABG pH POC ABG pCO2 POC ABG pO2 Sodium 134 L Potassium 3.2 L Chloride Carbon Dioxide BUN 58 H Creatinine 2.6 H Glucose 139 H POC Glucose 209 H Calcium 7.7 L AST C-Reactive Protein Total Protein 6.2 L Albumin 1.4 L TSH Urine pH Urine WBC (Auto) Vancomycin Trough 11/11/18 11/12/18 11/12/18 23:59 04:35 05:15 RBC 2.28 L Hgb 7.4 L Hct 22.8 L MCV 100 H MCH 33 H RDW Plt Count Lymph % (Auto) 8.1 L [place] % (Auto) 7.9 H Lymph # 0.5 L Seg Neutrophils % 83.2 H Seg Neuts % (Manual) Lymphocytes % (Manual) Monocytes % (Manual) Seg Neutrophils # Lymphocytes # (Manual) PT INR POC ABG pH POC ABG pCO2 31.1 L POC ABG pO2 Sodium Potassium Chloride Carbon Dioxide BUN Creatinine Glucose POC Glucose 143 H Calcium AST C-Reactive Protein Total Protein Albumin TSH Urine pH Urine WBC (Auto) Vancomycin Trough 11/12/18 11/12/18 11/12/18 05:15 05:29 11:18 RBC Hgb Hct MCV MCH RDW Plt Count Lymph % (Auto) [place] % (Auto) Lymph # Seg Neutrophils % Seg Neuts % (Manual) Lymphocytes % (Manual) Monocytes % (Manual) Seg Neutrophils # Lymphocytes # (Manual) PT INR POC ABG pH POC ABG pCO2 POC ABG pO2 Sodium 133 L Potassium Chloride Carbon Dioxide 21 L BUN 70 H Creatinine 2.8 H Glucose 165 H POC Glucose 186 H 153 H Calcium 7.9 L AST 81 H C-Reactive Protein Total Protein 5.9 L Albumin 1.4 L TSH Urine pH Urine WBC (Auto) Vancomycin Trough 11/12/18 11/12/18 11/13/18 17:55 23:29 05:13 RBC 2.15 L Hgb 7.1 L Hct 21.6 L MCV 101 H MCH 33 H RDW Plt Count Lymph % (Auto) [place] % (Auto) Lymph # Seg Neutrophils % Seg Neuts % (Manual) 81.0 H Lymphocytes % (Manual) 3.0 L Monocytes % (Manual) 8.0 H Seg Neutrophils # Lymphocytes # (Manual) 0.2 L PT INR POC ABG pH POC ABG pCO2 POC ABG pO2 Sodium Potassium Chloride Carbon Dioxide BUN Creatinine Glucose POC Glucose 138 H 227 H Calcium AST C-Reactive Protein Total Protein Albumin TSH Urine pH Urine WBC (Auto) Vancomycin Trough 11/13/18 11/13/18 05:13 05:25 RBC Hgb Hct MCV MCH RDW Plt Count Lymph % (Auto) [place] % (Auto) Lymph # Seg Neutrophils % Seg Neuts % (Manual) Lymphocytes % (Manual) Monocytes % (Manual) Seg Neutrophils # Lymphocytes # (Manual) PT INR POC ABG pH POC ABG pCO2 POC ABG pO2 Sodium 133 L Potassium Chloride Carbon Dioxide BUN 48 H Creatinine 2.2 H Glucose 155 H POC Glucose 159 H Calcium 8.3 L AST C-Reactive Protein Total Protein Albumin TSH Urine pH Urine WBC (Auto) Vancomycin Trough
[2018-11-13] MEDS: LEVOPHED DRIP 4 MG/NS 250 ML 4 MG/250 ML BAG IV SCH (11:53)
[2018-11-13] MEDS: PROAMATINE PO SCH ×2 (11:54→20:29)
--- NOTE | 2018-11-13 12:59 | Cat Scan Report ---
CT HEAD WITHOUT CONTRAST: HISTORY: Coma. TECHNIQUE: Sequential CT images without contrast. FINDINGS: Compared to 10/29/18. Mild diffuse cortical volume loss and moderate nonspecific chronic white matter changes are stable since the previous exam. There is no evidence for hemorrhage, mass, extra-axial fluid collection, hydrocephalus or large area of acute ischemia. The wells white interface is well-defined. The calvarium is intact. Mild mucosal thickening in the ethmoid and maxillary sinuses is noted. IMPRESSION: Evidence of atrophy and microangiopathic ischemic disease. No acute intracranial process noted. No significant change since 10/29/18.
--- NOTE | 2018-11-13 13:21 | Event Note ---
Date: 11/13/18 Notified by [facility] that they will not be able to support PEG placement tomorrow afternoon due to lack of staff. I have notified Dr. Diaz. Suggested that IR be consulted so as not to further delay his care. We will move forward with tracheostomy. Discussed with daughter (Ms. Reilly).
--- NOTE | 2018-11-13 14:48 | Progress Note ---
Assessment and Plan Cultures: 10/29/2018 Blood culture: No growth 10/30/2018 sputum culture: MRSA 10/30/2018 urine culture: Mixed growth 11/02/2018 blood culture: no growth 11/09/2018 blood culture: no growth A/P: 73-year-old male with prostate cancer, ESRD on hemodialysis, diabetes mellitus, peripheral vascular disease status post right-sided AKA is admitted to the hospital as a transfer from the senior care due to altered mental status. Apparently, the patient had been refusing dialysis for a week prior to admission. Now with: 1) Severe sepsis with shock s/p PEA arrest: remains on pressors, mechanical ventilation. 2) Right-sided pneumonia with acute hypoxic respiratory failure: On mechanical ventilation. Chest x-ray showing right-sided infiltrate. Sputum culture growing MRSA. Completed 14 days of IV Vancomycin 11/13/2018. 3) Possible UTI: Patient with indwelling suprapubic catheter. Also with ESRD on hemodialysis. This makes UA difficult to interpret for infection since quite likely to have urinary sediment. 4) ESRD on hemodialysis: Noncompliant. Renally dose abx. 5) Peripheral vascular disease: Status post right BKA, left TMA. 6) Right gluteal decubitus ulcer with eschar: continue wound care. 7) R sphenoid sinusitis noted on CT: already on abx. Received 5 days of C efepime. Recs: completed 14 days of IV Vancomycin and 5 days of IV Cefepime today, will d/c if febrile again, consider removing HD cath Overall extremely poor prognosis, prolonged antibiotics only going to breed resistant organisms Comfort/palliative care Aaron Regan MD [facility] C: [phone] O: [phone] F: [phone] Subjective Date of service: 11/13/18 Principal diagnosis: sepsis, acute resp, failure. Interval history: No fever. Remains on pressors. Remains unresponsive. Objective - Exam Narrative Exam: Physical Exam: Constitutional: unresponsive, intubated Head, Ears, Nose: Normocephalic, atraumatic. External ears, nose normal Eyes: Conjunctivae/corneas clear. No icterus. No ptosis. Neck: Supple, no meningeal signs Oral: intubated Cardiovascular: S1, S2 normal. Respiratory: Good air entry, clear to auscultation bilaterally GI: Soft, bowel sounds hypoactive. Suprapubic catheter + Musculoskeletal: Right AKA, left TMA stumps healed. Right gluteal region with eschar. Left femoral HD cath +. Edema + Skin: No rash or abscess Hem/Lymphatic: No palpable cervical or supraclavicular nodes. No lymphangitis Psych: no agitation Neurological: unresponsive, intubated, on vent. - Constitutional Vitals: Vital Signs Temp Pulse Resp BP Pulse Ox 99.8 F H 104 H 35 H 126/56 98 11/13/18 12:00 11/13/18 14:30 11/13/18 14:30 11/13/18 14:30 11/13/18 14:30 Temperature -Last 24 Hours Temperature 99.8 F Temperature 99.9 F Temperature 98.4 F Temperature 98 F Temperature 98.3 F Temperature 98.4 F - Labs CBC & Chem 7: 11/13/18 05:13 11/13/18 05:13 Labs: Abnormal lab results 11/12/18 11/12/18 11/13/18 Range/Units 17:55 23:29 05:13 RBC 2.15 L (3.65-5.03) M/mm3 Hgb 7.1 L (11.8-15.2) gm/dl Hct 21.6 L (35.5-45.6) % MCV 101 H (84-94) fl MCH 33 H (28-32) pg Seg Neuts % (Manual) 81.0 H (40.0-70.0) % Lymphocytes % (Manual) 3.0 L (13.4-35.0) % Monocytes % (Manual) 8.0 H (0.0-7.3) % Lymphocytes # (Manual) 0.2 L (1.2-5.4) K/mm3 Sodium (137-145) mmol/L BUN (9-20) mg/dL Creatinine (0.8-1.5) mg/dL Glucose (75-100) mg/dL POC Glucose 138 H 227 H (70-105) Calcium (8.4-10.2) mg/dL 11/13/18 11/13/18 11/13/18 Range/Units 05:13 05:25 11:21 RBC (3.65-5.03) M/mm3 Hgb (11.8-15.2) gm/dl Hct (35.5-45.6) % MCV (84-94) fl MCH (28-32) pg Seg Neuts % (Manual) (40.0-70.0) % Lymphocytes % (Manual) (13.4-35.0) % Monocytes % (Manual) (0.0-7.3) % Lymphocytes # (Manual) (1.2-5.4) K/mm3 Sodium 133 L (137-145) mmol/L BUN 48 H (9-20) mg/dL Creatinine 2.2 H (0.8-1.5) mg/dL Glucose 155 H (75-100) mg/dL POC Glucose 159 H 149 H (70-105) Calcium 8.3 L (8.4-10.2) mg/dL - Imaging and cardiology Chest x-ray: report reviewed, image reviewed (RLL atelectasis v/s infiltate.) CT Scan - head: report reviewed, image reviewed (no acute process.)
--- NOTE | 2018-11-13 17:24 | Electroencephalogram Report ---
Electroencephalogram EEG Date of exam: 11/13/18 History: coma following arrest Description: This 19 channel (including 1 EKG channel) digital electroencephalogram was done using the international 10/20 montage in a 21 minute recording. EKG channel shows some tachycardia. No alpha activity was seen. The record shows a mixture of theta and delta frequencies but some superimposed left frontocentral and left frontotemporal slowing as for example at timestamp 14:45:36.4. No epileptiform activity was seen. Interpretation: Moderately abnormal comatose EEG due to background slowing suggesting a diffuse process and superimposed left frontotemporal slowing for which correlation with imaging is advised. This EEG does not exclude epilepsy of partial onset. Up to 4 EEGs over several months may be needed to capture interictal epileptiform activity.
--- NOTE | 2018-11-13 22:11 | Progress Note ---
Assessment and Plan - Patient Problems (1) Altered mental status Current Visit: Yes Status: Acute Qualifiers: Altered mental status type: unspecified Qualified Code(s): R41.82 - Altered mental status, unspecified Plan to address problem: most likely due to sinus infection follow ID. (2) Hyperkalemia Current Visit: Yes Status: Acute Plan to address problem: Treated, and continue to correct with HD. corrected. (3) Hypernatremia Current Visit: Yes Status: Acute Plan to address problem: correct with HD. As above when feasible with the Renal service. patient continues with HD. (4) Uremia Current Visit: Yes Status: Acute Plan to address problem: treat underlying cause. Follow Renal. (5) Acute encephalopathy Current Visit: Yes Status: Chronic Plan to address problem: supportive care. (6) ESRD needing dialysis Current Visit: Yes Status: Chronic Plan to address problem: Continue on HD. as above once feasible. (7) Sepsis Current Visit: Yes Status: Acute Plan to address problem: treat the etiology.Most likely due to sinus infection. Subjective Date of service: 11/13/18 Principal diagnosis: sepsis, acute resp, failure. Interval history: Patient seen/examined,in the ICU. I have spoken to the daughter, and his sister today, regarding plan of care, and prognosis. I have rec less aggressive path, including hospice. They will think about it ,and let me know. Mean while, will continue current management. His prognosis is quite poor at this time. Patient seen/examined, resting in bed, labs reviewed.Still on the vent.If unable to be weaned off the vent, on timely /expected time, will push for LTAC eval/placement at [facility] to start preparing for this possibility. Patient seen/examined, resting in bed, still not wean able yet.He had HD today. patient seen/examined, resting in bed. labs/records/notes reviewed, including ID consult notes. Cxr with PNA., 24hr Tm 102. Patient seen/examined, resting in bed, NR, BP low, and Levo increased back up ,to maintain any appreciable reading. Labs reviewed. I have discussed/updated the daughter Ramón today, discussed code status again, and prognosis,as well as long time plan/disposition.She has signed a Do NOT Resuscitate, and the other family member suppose to sign hers today, or tomorrow. I have recommended, and she is in agreement to the LTAC placement at [facility], where he can also get trached, if, and when feasible. I want the pillowcase folder to act on this on timely manner.MRSA positive in the sputum.ID on the case. Patient seen/examined, resting in bed, labs reviewed. Patient is now an AND status.Plan for LTAC referral by the pillowcase folder, I have spoken to the family about [facility], and she was in agreement. patient seen/examined, resting in bed, records reviewed, case d/w Dr Garcia.I had already spoken to the primary daughter about LTAC this past week, and she was in agreement. I do not think patient has to be trached/peg here before d/c, and transfer to the LTAC, both the patient, and family will have ample time to think tis over ,if /when it comes to that.I will however continue to speak to them. PLs read notes, so we can all be on the same plan for disposition. patient seen/examined, resting in bed. labs/records reviewed, family meeting held with the 3 Daughters by me. Spent time discussing prognosis, trach/peg. they have agreed to these procedures, even if there could be serious complication. I will consult ENT- Dr West,while waiting on EEG results.Once completed, will transfer to the LTAC as agreed to by the family.I have ensured them , that the prognosis is poor, no matter what is done hence forth. patient seen/examined, resting in bed, discussed EEG results with pulm, and with the Nurse. This an abn EEG, and the family had indicated the wish to proceed with treach/peg.Will consult Gen surgery. Patient seen/examined, resting in bed, not readily responsive. Gen surgery awaiting family meeting between himself, and the family, before proceeding with any surgery. I have had all the meeting needed with the family , and every thing is documented on the notes.Dr Phipps will cover my rounds from monday till monday. I am avalable on the phone [phone]. Patient seen/examined, labs/records reviewed, d/w family 24hrs ago, they still want to go ahead with traech/peg. . I havs spoken tp pulm today, and she remains in aggrement, as i am. patient needs this done, so he can transfer to LTAC. Patient seen/examined, resting in bed, labs reviewed, H/H dropped to 7.1. he is scheduled for Surgery tomorrow.Will replace PRBc if level 7, or below. Objective - Constitutional Vitals: Vital Signs - 12hr 11/13/18 11/13/18 11/13/18 10:15 10:30 10:45 Temperature Pulse Rate 106 H 105 H 105 H Pulse Rate [ From Monitor] Respiratory 16 35 H 35 H Rate Blood Pressure 115/52 109/48 117/51 O2 Sat by Pulse 96 96 97 Oximetry 11/13/18 11/13/18 11/13/18 11:00 11:15 11:30 Temperature Pulse Rate 104 H 104 H 105 H Pulse Rate [ From Monitor] Respiratory 35 H 35 H 36 H Rate Blood Pressure 107/47 108/50 116/52 O2 Sat by Pulse 97 98 95 Oximetry 11/13/18 11/13/18 11/13/18 11:45 12:00 12:33 Temperature 99.8 F H Pulse Rate 106 H 107 H 101 H Pulse Rate [ 106 H From Monitor] Respiratory 35 H 36 H 27 H Rate Blood Pressure 107/48 114/51 114/51 O2 Sat by Pulse 96 96 Oximetry 11/13/18 11/13/18 11/13/18 12:35 12:45 12:50 Temperature Pulse Rate 103 H 103 H 102 H Pulse Rate [ From Monitor] Respiratory 34 H Rate Blood Pressure 132/57 126/55 O2 Sat by Pulse 98 96 Oximetry 11/13/18 11/13/18 11/13/18 13:00 13:15 13:30 Temperature Pulse Rate 103 H 103 H 105 H Pulse Rate [ From Monitor] Respiratory 34 H 34 H 35 H Rate Blood Pressure 126/55 134/60 143/58 O2 Sat by Pulse 96 96 98 Oximetry 11/13/18 11/13/18 11/13/18 13:45 14:00 14:15 Temperature Pulse Rate 105 H 104 H 104 H Pulse Rate [ From Monitor] Respiratory 35 H 35 H 35 H Rate Blood Pressure 149/58 135/58 131/57 O2 Sat by Pulse 98 97 98 Oximetry 11/13/18 11/13/18 11/13/18 14:30 14:45 15:00 Temperature Pulse Rate 104 H 103 H 103 H Pulse Rate [ From Monitor] Respiratory 35 H 34 H 34 H Rate Blood Pressure 126/56 123/56 126/58 O2 Sat by Pulse 98 99 99 Oximetry 11/13/18 11/13/18 11/13/18 15:15 15:30 15:45 Temperature Pulse Rate 105 H 102 H 102 H Pulse Rate [ From Monitor] Respiratory 30 H 34 H 33 H Rate Blood Pressure 116/61 107/51 105/53 O2 Sat by Pulse 100 98 98 Oximetry 11/13/18 11/13/18 11/13/18 16:00 16:15 16:30 Temperature 98.2 F Pulse Rate 100 H 100 H 101 H Pulse Rate [ 100 H From Monitor] Respiratory 32 H 33 H 33 H Rate Blood Pressure 105/47 113/54 99/42 O2 Sat by Pulse 99 98 99 Oximetry 11/13/18 11/13/18 11/13/18 16:38 16:45 17:00 Temperature Pulse Rate 99 H 99 H 102 H Pulse Rate [ From Monitor] Respiratory 33 H 32 H 34 H Rate Blood Pressure 99/42 118/56 97/47 O2 Sat by Pulse 99 99 100 Oximetry 11/13/18 11/13/18 11/13/18 17:15 17:30 17:45 Temperature Pulse Rate 102 H 100 H 99 H Pulse Rate [ From Monitor] Respiratory 34 H 29 H 33 H Rate Blood Pressure 88/41 109/53 88/37 O2 Sat by Pulse 99 99 99 Oximetry 11/13/18 11/13/18 11/13/18 18:00 18:15 18:30 Temperature Pulse Rate 99 H 99 H 100 H Pulse Rate [ From Monitor] Respiratory 33 H 33 H 32 H Rate Blood Pressure 109/50 119/52 89/38 O2 Sat by Pulse 98 99 Oximetry 11/13/18 11/13/18 11/13/18 18:46 19:00 19:15 Temperature Pulse Rate 99 H 102 H 102 H Pulse Rate [ From Monitor] Respiratory 33 H 35 H 32 H Rate Blood Pressure 126/54 122/47 115/46 O2 Sat by Pulse 97 94 95 Oximetry 11/13/18 11/13/18 11/13/18 19:30 19:45 20:00 Temperature 99.1 F Pulse Rate 102 H 103 H 102 H Pulse Rate [ 104 H From Monitor] Respiratory 34 H 32 H 34 H Rate Blood Pressure 109/42 116/46 109/43 O2 Sat by Pulse 95 96 96 Oximetry 11/13/18 11/13/18 11/13/18 20:08 20:15 20:30 Temperature Pulse Rate 102 H 103 H 105 H Pulse Rate [ From Monitor] Respiratory 33 H 33 H 34 H Rate Blood Pressure 109/43 110/45 118/52 O2 Sat by Pulse 97 95 96 Oximetry General appearance: Present: cachectic - EENT Eyes: PERRL, EOM intact ENT: hearing intact, clear oral mucosa Ears: bilateral: normal - Neck Neck: supple, normal ROM - Respiratory Respiratory: bilateral: other (on the vent.) - Breasts Breasts: deferred - Cardiovascular Rhythm: regular Heart Sounds: Present: S1 & S2. Absent: gallop, rub Extremities: pulses intact, No edema, normal color, Full ROM - Gastrointestinal General gastrointestinal: Present: soft, non-tender, non-distended, normal bowel sounds Rectal Exam: deferred - Genitourinary Male genitourinary: deferred - Integumentary Integumentary: clear, warm, dry - Labs CBC & Chem 7: 11/13/18 05:13 11/13/18 05:13 Labs: Abnormal lab results 11/12/18 11/13/18 11/13/18 Range/Units 23:29 05:13 05:13 RBC 2.15 L (3.65-5.03) M/mm3 Hgb 7.1 L (11.8-15.2) gm/dl Hct 21.6 L (35.5-45.6) % MCV 101 H (84-94) fl MCH 33 H (28-32) pg Seg Neuts % (Manual) 81.0 H (40.0-70.0) % Lymphocytes % (Manual) 3.0 L (13.4-35.0) % Monocytes % (Manual) 8.0 H (0.0-7.3) % Lymphocytes # (Manual) 0.2 L (1.2-5.4) K/mm3 Sodium 133 L (137-145) mmol/L BUN 48 H (9-20) mg/dL Creatinine 2.2 H (0.8-1.5) mg/dL Glucose 155 H (75-100) mg/dL POC Glucose 227 H (70-105) Calcium 8.3 L (8.4-10.2) mg/dL 11/13/18 11/13/18 11/13/18 Range/Units 05:25 11:21 18:06 RBC (3.65-5.03) M/mm3 Hgb (11.8-15.2) gm/dl Hct (35.5-45.6) % MCV (84-94) fl MCH (28-32) pg Seg Neuts % (Manual) (40.0-70.0) % Lymphocytes % (Manual) (13.4-35.0) % Monocytes % (Manual) (0.0-7.3) % Lymphocytes # (Manual) (1.2-5.4) K/mm3 Sodium (137-145) mmol/L BUN (9-20) mg/dL Creatinine (0.8-1.5) mg/dL Glucose (75-100) mg/dL POC Glucose 159 H 149 H 192 H (70-105) Calcium (8.4-10.2) mg/dL Medications & Allergies - Medications Allergies/Adverse Reactions: Allergies No Known Allergies Allergy (Verified 01/18/18 20:10) Home Medications: Home Medications Medication Instructions Recorded Confirmed Last Taken Type Acetaminophen [Acetaminophen TAB] 650 mg PO Q4H PRN 03/12/18 10/31/18 Unknown History Calcium Acetate [Phoslo] 667 mg PO TID 03/12/18 10/31/18 05/13/18 17:00 History Carvedilol [Coreg] 6.25 mg PO BID 03/12/18 10/31/18 05/13/18 09:00 History Ergocalciferol 50,000 unit PO QWEEK 03/12/18 10/31/18 05/11/18 09:00 History Apixaban [Eliquis] 2.5 mg PO BID tablet 08/21/18 10/31/18 Unknown Rx Megestrol [Megace] 400 mg PO QDAY 10/31/18 10/31/18 Unknown History Mirtazapine [Remeron] 15 mg PO QHS 10/31/18 10/31/18 Unknown History Elaine-José Rx Tablet 1 tab PO QDAY 10/31/18 10/31/18 Unknown History Sodium Bicarbonate 650 mg PO BID 10/31/18 10/31/18 Unknown History traMADol [Ultram 50 MG tab] 25 mg PO Q12H PRN 10/31/18 10/31/18 Unknown History Active Medications: Generic Name Dose Route Start Last Admin Trade Name Freq PRN Reason Stop Dose Admin Acetaminophen 650 mg 11/02/18 09:25 11/09/18 18:46 Tylenol FEEDTUBE 650 mg Q6H PRN Administration Fever >101 Lipase/Protease/Amylase 1 each 11/01/18 10:[address] 10,500 Unit FEEDTUBE PRN PRN For Clogged Feeding Tube Calcium Acetate 667 mg 11/13/18 08:00 11/13/18 17:10 Phoslo PO 667 mg TIDWM KIRSTEN Administration Epoetin [place] 20,000 unit 11/05/18 10:21 11/12/18 17:30 Procrit SUB-Q 20,000 unit ALEJO PRN Administration hemodialysis Ergocalciferol 50,000 unit 11/16/18 10:00 Vitamin D2 PO Fr KIRSTEN Famotidine 20 mg 11/01/18 10:00 11/13/18 09:47 Pepcid PO 20 mg DAILY KIRSTEN Administration Heparin Sodium (Porcine) 5,000 unit 10/29/18 22:00 11/13/18 05:09 Heparin SUB-Q 5,000 unit Q8HR KIRSTEN Administration Norepinephrine 4 mg in 250 mls @ 7.5 mls/hr 10/30/18 01:00 11/13/18 18:37 Levophed Drip 4 Mg/Ns 250 Ml IV 4 mcg/min TITR KIRSTEN 15 mls/hr Titration Protocol 2 MCG/MIN Sodium Chloride 100 mls @ 999 mls/hr 11/09/18 08:48 Nacl 0.9% IV ALEJO PRN Hypotension Sodium Chloride 100 mls @ 999 mls/hr 11/12/18 08:43 Nacl 0.9% IV ALEJO PRN Hypotension Dextrose/Sodium Chloride 1,000 mls @ 62.5 mls/hr 11/14/18 00:01 D5/0.45ns IV DIRECT KIRSTEN Insulin Human Lispro 0 unit 10/30/18 10:00 11/13/18 18:27 Humalog SUB-Q 3 unit Q6HR KIRSTEN Administration Protocol Levetiracetam 500 mg 11/07/18 10:00 11/13/18 21:00 Keppra PO 500 mg BID KIRSTEN Administration Midodrine 10 mg 11/13/18 11:00 11/13/18 20:29 Proamatine PO 10 mg TID KIRSTEN Administration Multivit/Ca Carb/B Cmplx/FA/Prenat 1 cap 11/13/18 10:00 11/13/18 09:47 Renal Caps PO 1 cap QDAY KIRSTEN Administration Simple Syrup 15 ml 11/01/18 10:04 11/06/18 00:09 Simple Syrup FEEDTUBE 15 ml PRN PRN Administration Hypoglycemia Simple Syrup 30 ml 11/01/18 10:04 Simple Syrup FEEDTUBE PRN PRN Hypoglycemia Sodium Bicarbonate 325 mg 11/01/18 10:04 Sodium Bicarbonate FEEDTUBE PRN PRN For Clogged Feeding Tube Sodium Bicarbonate 650 mg 11/13/18 10:00 11/13/18 21:00 Sodium Bicarbonate PO 650 mg BID KIRSTEN Administration
[2018-11-14] MEDS ORDERED: D5/0.45NS 1,000 ML IV SCH (00:01)
[2018-11-14 05:22] LABS: Basophils % (Auto) 0.2 % (0.0-1.8); Eosinophils % (Auto) 0.4 % (0.0-4.3); Hematocrit 21.5 % (35.5-45.6); Lymphocytes # (Auto) 0.4 K/mm3 (1.2-5.4); Lymphocytes % (Auto) 5.3 % (13.4-35.0); Mean Corpuscular HGB Conc 33 % (32-34); Mean Corpuscular Volume 100 fl (84-94); Monocytes # (Auto) 0.6 K/mm3 (0.0-0.8); Monocytes % (Auto) 9.3 % (0.0-7.3); Platelet Count 262 K/mm3 (140-440); Red Blood Count 2.16 M/mm3 (3.65-5.03); Red Cell Distribution Width 14.3 % (13.2-15.2)
[2018-11-14 05:30] LABS: Partial Thromboplastin Time 34.4 Sec. (24.2-36.6)
[2018-11-14 05:34] LABS: INR 1.29 (0.87-1.13)
[2018-11-14 05:43] LABS: Calcium 8.3 mg/dL (8.4-10.2)
[2018-11-14] MEDS: HumaLOG SUB-Q SCH ×2 (07:13→16:45)
[2018-11-14] MEDS: PHOSLO PO SCH ×2 (08:23→11:45)
[2018-11-14] MEDS: PROAMATINE PO SCH ×2 (08:23→21:39)
[2018-11-14] MEDS ORDERED: NACL 0.9% 100 ML IV PRN (08:49)
--- NOTE | 2018-11-14 08:49 | Progress Note ---
Assessment and Plan 1. ESRD: Continue hemodialysis three times a week. Patient was last dialyzed 2 days ago. HD today. Off pressors today. Monitor for [employer] needs. Clotted R arm AVF. 2. FEN: Hypokalemia, replete K as needed. Hypernatremia, improved. UF with HD as tolerated. 3. Respiratory failure: On vent. 4. Septic Shock: On Levophed. 5. Pneumonia. 6. Anemia: Epogen. Subjective Date of service: 11/14/18 Principal diagnosis: sepsis, acute resp, failure. Interval history: Patient was seen and examined at the bedside. Objective - Vital Signs Vital signs: Vital Signs - 12hr 11/13/18 11/13/18 11/13/18 21:00 21:15 21:30 Temperature Pulse Rate 103 H 103 H 102 H Pulse Rate [ From Monitor] Respiratory 33 H 34 H 33 H Rate Blood Pressure 124/51 134/54 134/52 O2 Sat by Pulse 97 97 98 Oximetry 11/13/18 11/13/18 11/13/18 21:45 22:00 22:15 Temperature Pulse Rate 101 H 102 H 101 H Pulse Rate [ From Monitor] Respiratory 34 H 34 H 34 H Rate Blood Pressure 133/52 140/56 121/50 O2 Sat by Pulse 98 98 98 Oximetry 11/13/18 11/13/18 11/13/18 22:30 22:45 23:00 Temperature Pulse Rate 106 H 104 H 106 H Pulse Rate [ From Monitor] Respiratory 34 H 33 H 35 H Rate Blood Pressure 124/58 117/51 133/59 O2 Sat by Pulse 97 97 98 Oximetry 11/13/18 11/13/18 11/13/18 23:15 23:23 23:30 Temperature Pulse Rate 102 H 102 H 101 H Pulse Rate [ From Monitor] Respiratory 34 H 33 H 33 H Rate Blood Pressure 120/54 120/54 123/49 O2 Sat by Pulse 98 98 98 Oximetry 11/13/18 11/13/18 11/13/18 23:37 23:43 23:45 Temperature Pulse Rate 102 H 103 H 103 H Pulse Rate [ From Monitor] Respiratory 34 H 27 H Rate Blood Pressure 123/49 120/54 121/54 O2 Sat by Pulse 98 98 98 Oximetry 11/13/18 11/14/18 11/14/18 23:53 00:00 00:15 Temperature 99.7 F H Pulse Rate 101 H 101 H 100 H Pulse Rate [ 105 H From Monitor] Respiratory 29 H 34 H 34 H Rate Blood Pressure 121/54 123/52 125/53 O2 Sat by Pulse 98 98 97 Oximetry 11/14/18 11/14/18 11/14/18 00:30 00:45 01:00 Temperature Pulse Rate 103 H 107 H 109 H Pulse Rate [ From Monitor] Respiratory 33 H 31 H 34 H Rate Blood Pressure 131/52 131/55 137/54 O2 Sat by Pulse 97 94 94 Oximetry 11/14/18 11/14/18 11/14/18 01:15 01:30 01:45 Temperature Pulse Rate 109 H 109 H 118 H Pulse Rate [ From Monitor] Respiratory 33 H 34 H 37 H Rate Blood Pressure 129/56 140/54 132/70 O2 Sat by Pulse 93 95 96 Oximetry 11/14/18 11/14/18 11/14/18 02:00 02:15 02:30 Temperature Pulse Rate 111 H 111 H 110 H Pulse Rate [ From Monitor] Respiratory 33 H 34 H 33 H Rate Blood Pressure 120/51 124/50 123/51 O2 Sat by Pulse 95 95 96 Oximetry 11/14/18 11/14/18 11/14/18 02:45 03:00 03:15 Temperature Pulse Rate 110 H 109 H 108 H Pulse Rate [ From Monitor] Respiratory 36 H 34 H 35 H Rate Blood Pressure 107/55 121/50 120/51 O2 Sat by Pulse 95 96 95 Oximetry 11/14/18 11/14/18 11/14/18 03:30 03:45 04:00 Temperature 100.0 F H Pulse Rate 108 H 105 H 106 H Pulse Rate [ 106 H From Monitor] Respiratory 33 H 19 33 H Rate Blood Pressure 134/57 109/43 110/46 O2 Sat by Pulse 97 97 97 Oximetry 11/14/18 11/14/18 11/14/18 04:15 04:28 04:30 Temperature Pulse Rate 105 H 102 H 102 H Pulse Rate [ From Monitor] Respiratory 33 H 22 Rate Blood Pressure 102/48 102/48 93/40 O2 Sat by Pulse 97 97 98 Oximetry 11/14/18 11/14/18 11/14/18 04:45 05:00 05:15 Temperature Pulse Rate 103 H 100 H 104 H Pulse Rate [ From Monitor] Respiratory 25 H 24 25 H Rate Blood Pressure 110/42 102/42 139/53 O2 Sat by Pulse 97 98 98 Oximetry 11/14/18 11/14/18 11/14/18 05:30 05:45 06:00 Temperature 135 F H Pulse Rate 96 H 97 H 97 H Pulse Rate [ From Monitor] Respiratory 31 H 34 H 33 H Rate Blood Pressure 107/45 118/52 118/52 O2 Sat by Pulse 98 97 97 Oximetry 11/14/18 11/14/18 11/14/18 06:15 06:30 06:45 Temperature Pulse Rate 97 H 97 H 97 H Pulse Rate [ From Monitor] Respiratory 26 H 32 H 29 H Rate Blood Pressure 126/51 129/56 106/47 O2 Sat by Pulse 97 97 97 Oximetry 11/14/18 11/14/18 11/14/18 07:00 07:15 07:30 Temperature Pulse Rate 99 H 99 H 99 H Pulse Rate [ From Monitor] Respiratory 26 H 30 H 25 H Rate Blood Pressure 111/50 111/49 105/49 O2 Sat by Pulse 95 93 94 Oximetry 11/14/18 11/14/18 11/14/18 07:45 08:00 08:03 Temperature 96.8 F L Pulse Rate 97 H 95 H 97 H Pulse Rate [ From Monitor] Respiratory 27 H 27 H Rate Blood Pressure 109/52 101/50 101/50 O2 Sat by Pulse 94 93 93 Oximetry 11/14/18 11/14/18 11/14/18 08:14 08:15 08:30 Temperature Pulse Rate 95 H 96 H 95 H Pulse Rate [ From Monitor] Respiratory 27 H 27 H Rate Blood Pressure 92/45 101/48 O2 Sat by Pulse 95 95 95 Oximetry - General Appearance General appearance: well-developed, appears stated age, intubated, other (on vent) EENT: ATNC Respiratory: Present: Clear to Ascultation Cardiology: regular, S1S2, no murmurs Gastrointestinal: normoactive bowel sounds, no tenderness, other (suprapubic catheter noted) Neurologic: obtunded Musculoskeletal: other (extremity edema noted, L groin dialysis catheter) - Lab 11/15/18 07:40 11/14/18 04:32 Most recent lab results Calcium 8.3 mg/dL (8.4-10.2) L 11/14/18 04:32 Phosphorus 3.10 mg/dL (2.5-4.5) 11/05/18 06:36 Medications & Allergies - Medications Allergies/Adverse Reactions: Allergies No Known Allergies Allergy (Verified 01/18/18 20:10) Home Medications: Home Medications Medication Instructions Recorded Confirmed Last Taken Type Acetaminophen [Acetaminophen TAB] 650 mg PO Q4H PRN 03/12/18 10/31/18 Unknown H istory Calcium Acetate [Phoslo] 667 mg PO TID 03/12/18 10/31/18 05/13/18 17:00 History Carvedilol [Coreg] 6.25 mg PO BID 03/12/18 10/31/18 05/13/18 09:00 History Ergocalciferol 50,000 unit PO QWEEK 03/12/18 10/31/18 05/11/18 09:00 History Apixaban [Eliquis] 2.5 mg PO BID tablet 08/21/18 10/31/18 Unknown Rx Megestrol [Megace] 400 mg PO QDAY 10/31/18 10/31/18 Unknown History Mirtazapine [Remeron] 15 mg PO QHS 10/31/18 10/31/18 Unknown History Elaine-José Rx Tablet 1 tab PO QDAY 10/31/18 10/31/18 Unknown History Sodium Bicarbonate 650 mg PO BID 10/31/18 10/31/18 Unknown History traMADol [Ultram 50 MG tab] 25 mg PO Q12H PRN 10/31/18 10/31/18 Unknown History Active Medications: Generic Name Dose Route Start Last Admin Trade Name Freq PRN Reason Stop Dose Admin Acetaminophen 650 mg 11/02/18 09:25 11/09/18 18:46 Tylenol FEEDTUBE 650 mg Q6H PRN Administration Fever >101 Lipase/Protease/Amylase 1 each 11/01/18 10:04 Pancreyobani Palomo 10,500 Unit FEEDTUBE PRN PRN For Clogged Feeding Tube Calcium Acetate 667 mg 11/13/18 08:00 11/14/18 08:23 Phoslo PO 667 mg TIDWM KIRSTEN Administration Epoetin [place] 20,000 unit 11/05/18 10:21 11/12/18 17:30 Procrit SUB-Q 20,000 unit ALEJO PRN Administration hemodialysis Ergocalciferol 50,000 unit 11/16/18 10:00 Vitamin D2 PO Fr KIRSTEN Famotidine 20 mg 11/01/18 10:00 11/13/18 09:47 Pepcid PO 20 mg DAILY KIRSTEN Administration Heparin Sodium (Porcine) 5,000 unit 10/29/18 22:00 11/13/18 05:09 Heparin SUB-Q 5,000 unit Q8HR KIRSTEN Administration Norepinephrine 4 mg in 250 mls @ 7.5 mls/hr 10/30/18 01:00 11/14/18 06:15 Levophed Drip 4 Mg/Ns 250 Ml IV 0 mcg/min TITR KIRSTEN 0 mls/hr Titration Protocol 2 MCG/MIN Sodium Chloride 100 mls @ 999 mls/hr 11/09/18 08:48 Nacl 0.9% IV ALEJO PRN Hypotension Sodium Chloride 100 mls @ 999 mls/hr 11/12/18 08:43 Nacl 0.9% IV ALEJO PRN Hypotension Dextrose/Sodium Chloride 1,000 mls @ 62.5 mls/hr 11/14/18 00:01 11/13/18 23:57 D5/0.45ns IV 62.5 mls/hr DIRECT KIRSTEN Administration Insulin Human Lispro 0 unit 10/30/18 10:00 11/14/18 07:13 Humalog SUB-Q Not Given Q6HR KIRSTEN Protocol Levetiracetam 500 mg 11/07/18 10:00 11/13/18 21:00 Keppra PO 500 mg BID KIRSTEN Administration Midodrine 10 mg 11/13/18 11:00 11/14/18 08:23 Proamatine PO 10 mg TID KIRSTEN Administration Multivit/Ca Carb/B Cmplx/FA/Prenat 1 cap 11/13/18 10:00 11/13/18 09:47 Renal Caps PO 1 cap QDAY KIRSTEN Administration Simple Syrup 15 ml 11/01/18 10:04 11/06/18 00:09 Simple Syrup FEEDTUBE 15 ml PRN PRN Administration Hypoglycemia Simple Syrup 30 ml 11/01/18 10:04 Simple Syrup FEEDTUBE PRN PRN Hypoglycemia Sodium Bicarbonate 325 mg 11/01/18 10:04 Sodium Bicarbonate FEEDTUBE PRN PRN For Clogged Feeding Tube Sodium Bicarbonate 650 mg 11/13/18 10:00 11/13/18 21:00 Sodium Bicarbonate PO 650 mg BID KIRSTEN Administration
[2018-11-14] MEDS: SODIUM BICARBONATE PO SCH ×2 (09:43→21:39)
[2018-11-14] MEDS: Renal Caps PO SCH (09:43)
[2018-11-14] MEDS: PEPCID PO SCH (09:43)
[2018-11-14] MEDS: KEPPRA PO SCH ×2 (09:44→21:39)
--- NOTE | 2018-11-14 10:35 | Progress Note ---
Assessment and Plan -s/p PEA arrest -Severe sepsis with septic shock -Fevers, Tracheal aspirate positive for MRSA -Acute hypoxic respiratory failure on MVS -Acute encephalopathy ( toxic, metabolic) -Severe protein calorie malnutrition -Hyperkalemia (resolved) -ESRD on HD, clotted graft femoral HD catheter -Hyperosmolar hyperglycemic state( improving) -Hypotension, multifactorial, -Hypernatremia, resolved, now hyponatremia -PVD s/p right BKA -Prostate cancer s/p suprapubic catheter -Continue with MVS -Lung protective strategies -VAP bundle addressed. -Supplemental oxygen, wean for O2 sats>90% -Daily SBTs as tolerated -VTE prophylaxis( heparin) -Stress ulcer prophylaxis( Famotidine) -High dose sliding scale insulin with accuchecks -Tube feedings with aspiration precautions -Glycemic control, target blood glucose of 140-180mg/dL -Decreased free water flushes for hyponatremia -Continue wound care by wound care team -Supportive HD -Wean vasopressor support for MAP>65 -Neurology notes reviewed and appreciated. -NPO past midnight, start [id number] once NPO -ABG and CXR in am -Complete antibiotics- s/p Cefepime , Vancomycin -Trach and PEG scheduled for today -Start midodrine for blood pressure support Dispo---LTACH for weaning CONDITION: CRITICAL PROGNOSIS: GUARDED CODE STATUS: DNAR I have spent 35 minutes in the direct care of this critically ill patient, excluding procedure time. Critical care time was spent on this patient and during his initial evaluation, multiple re-evaluations, ordering and interpretation of labs and imaging, medications, discussion with the ICU care team. There is a high probability of clinically significant, sudden, or life- threatening deterioration that has required multiple evaluations and direct attention, intervention, and management. Subjective Date of service: 11/14/18 Principal diagnosis: sepsis, acute resp, failure. Interval history: Patient is seen today for: Acute hypoxemic respiratory failure on MVS; Severe sepsis with septic shock; acute encephaloapthy; persistent hypotension Seen and examined at bedside; 24hour events reviewed; nursing and respiratory care staff consulted; No fevers overnight, labile blood pressure, no vomiting Remains unresponsive, on mechanical ventilatory support, no dys-synchrony Scheduled for trach and PEG today Objective - Exam Narrative Exam: Physical Exam: Constitutional: unresponsive. on mechanical ventilatory support ETT at 23cm at the lip Head, Ears, Nose: Normocephalic, atraumatic. External ears, nose normal. Eyes: Conjunctivae/corneas clear. No icterus. No ptosis. Neck: trach + Cardiovascular: S1, S2 normal. Respiratory: Good air entry, clear to auscultation bilaterally GI: Soft, bowel sounds +. PEG + Suprapubic catheter + Musculoskeletal: Right AKA, left TMA stumps healed. Right gluteal region with eschar. Left femoral trialysis cath +. Edema + Skin: No rash or abscess Hem/Lymphatic: No palpable cervical or supraclavicular nodes. No lymphangitis Psych: no agitation Neurological: unresponsive, intubated, on vent. Vital Signs - 12hr 11/13/18 11/13/18 11/13/18 22:45 23:00 23:15 Temperature Pulse Rate 104 H 106 H 102 H Pulse Rate [ From Monitor] Respiratory 33 H 35 H 34 H Rate Blood Pressure 117/51 133/59 120/54 O2 Sat by Pulse 97 98 98 Oximetry 11/13/18 11/13/18 11/13/18 23:23 23:30 23:37 Temperature Pulse Rate 102 H 101 H 102 H Pulse Rate [ From Monitor] Respiratory 33 H 33 H 34 H Rate Blood Pressure 120/54 123/49 123/49 O2 Sat by Pulse 98 98 98 Oximetry 11/13/18 11/13/18 11/13/18 23:43 23:45 23:53 Temperature Pulse Rate 103 H 103 H 101 H Pulse Rate [ From Monitor] Respiratory 27 H 29 H Rate Blood Pressure 120/54 121/54 121/54 O2 Sat by Pulse 98 98 98 Oximetry 11/14/18 11/14/18 11/14/18 00:00 00:15 00:30 Temperature 99.7 F H Pulse Rate 101 H 100 H 103 H Pulse Rate [ 105 H From Monitor] Respiratory 34 H 34 H 33 H Rate Blood Pressure 123/52 125/53 131/52 O2 Sat by Pulse 98 97 97 Oximetry 11/14/18 11/14/18 11/14/18 00:45 01:00 01:15 Temperature Pulse Rate 107 H 109 H 109 H Pulse Rate [ From Monitor] Respiratory 31 H 34 H 33 H Rate Blood Pressure 131/55 137/54 129/56 O2 Sat by Pulse 94 94 93 Oximetry 11/14/18 11/14/1819 01:30 01:45 02:00 Temperature Pulse Rate 109 H 118 H 111 H Pulse Rate [ From Monitor] Respiratory 34 H 37 H 33 H Rate Blood Pressure 140/54 132/70 120/51 O2 Sat by Pulse 95 96 95 Oximetry 11/14/18 11/14/18 11/14/18 02:15 02:30 02:45 Temperature Pulse Rate 111 H 110 H 110 H Pulse Rate [ From Monitor] Respiratory 34 H 33 H 36 H Rate Blood Pressure 124/50 123/51 107/55 O2 Sat by Pulse 95 96 95 Oximetry 11/14/18 11/14/18 11/14/18 03:00 03:15 03:30 Temperature Pulse Rate 109 H 108 H 108 H Pulse Rate [ From Monitor] Respiratory 34 H 35 H 33 H Rate Blood Pressure 121/50 120/51 134/57 O2 Sat by Pulse 96 95 97 Oximetry 11/14/18 11/14/18 11/14/18 03:45 04:00 04:15 Temperature 100.0 F H Pulse Rate 105 H 106 H 105 H Pulse Rate [ 106 H From Monitor] Respiratory 19 33 H 33 H Rate Blood Pressure 109/43 110/46 102/48 O2 Sat by Pulse 97 97 97 Oximetry 11/14/18 11/14/18 11/14/18 04:28 04:30 04:45 Temperature Pulse Rate 102 H 102 H 103 H Pulse Rate [ From Monitor] Respiratory 22 25 H Rate Blood Pressure 102/48 93/40 110/42 O2 Sat by Pulse 97 98 97 Oximetry 11/14/18 11/14/18 11/14/18 05:00 05:15 05:30 Temperature Pulse Rate 100 H 104 H 96 H Pulse Rate [ From Monitor] Respiratory 24 25 H 31 H Rate Blood Pressure 102/42 139/53 107/45 O2 Sat by Pulse 98 98 98 Oximetry 11/14/18 11/14/18 11/14/18 05:45 06:00 06:15 Temperature 135 F H Pulse Rate 97 H 97 H 97 H Pulse Rate [ From Monitor] Respiratory 34 H 33 H 26 H Rate Blood Pressure 118/52 118/52 126/51 O2 Sat by Pulse 97 97 97 Oximetry 11/14/18 11/14/18 11/14/18 06:30 06:45 07:00 Temperature Pulse Rate 97 H 97 H 99 H Pulse Rate [ From Monitor] Respiratory 32 H 29 H 26 H Rate Blood Pressure 129/56 106/47 111/50 O2 Sat by Pulse 97 97 95 Oximetry 11/14/18 11/14/18 11/14/18 07:15 07:30 07:45 Temperature Pulse Rate 99 H 99 H 97 H Pulse Rate [ From Monitor] Respiratory 30 H 25 H 27 H Rate Blood Pressure 111/49 105/49 109/52 O2 Sat by Pulse 93 94 94 Oximetry 11/14/18 11/14/18 11/14/18 08:00 08:03 08:14 Temperature 96.8 F L Pulse Rate 95 H 97 H 95 H Pulse Rate [ From Monitor] Respiratory 27 H Rate Blood Pressure 101/50 101/50 O2 Sat by Pulse 93 93 95 Oximetry 11/14/18 11/14/18 08:15 08:30 Temperature Pulse Rate 96 H 95 H Pulse Rate [ From Monitor] Respiratory 27 H 27 H Rate Blood Pressure 92/45 101/48 O2 Sat by Pulse 95 95 Oximetry CBC and BMP: 11/16/18 05:45 11/16/18 05:45 ABG, PT/INR, D-dimer: ABG POC ABG pH 7.403 (7.35-7.45) 11/12/18 04:35 POC ABG pCO2 31.1 (35-45) L 11/12/18 04:35 POC ABG pO2 82 (80-105) 11/12/18 04:35 POC ABG HCO3 19.4 (22-26 mml/L) 11/12/18 04:35 POC ABG Total CO2 20 (23-27mmol/L) 11/12/18 04:35 POC ABG O2 Sat 96 11/12/18 04:35 PT/INR, D-dimer PT 16.9 Sec. (12.2-14.9) H 11/14/18 04:32 INR 1.29 (0.87-1.13) H 11/14/18 04:32 Abnormal lab findings: Abnormal Labs 10/29/18 10/29/18 10/29/18 17:13 17:13 17:13 RBC 3.62 L Hgb Hct MCV 102 H MCH 34 H RDW 19.6 H Plt Count Lymph % (Auto) [place] % (Auto) 7.8 H Lymph # Seg Neutrophils % 71.2 H Seg Neuts % (Manual) Lymphocytes % (Manual) Monocytes % (Manual) Seg Neutrophils # Lymphocytes # (Manual) PT INR POC ABG pH POC ABG pCO2 POC ABG pO2 Sodium 164 H* Potassium 6.2 H* Chloride 127.5 H Carbon Dioxide BUN 178 H Creatinine 4.2 H Glucose 131 H POC Glucose Calcium 10.7 H AST C-Reactive Protein Total Protein 9.5 H Albumin 2.6 L TSH 5.310 H Urine pH Urine WBC (Auto) Vancomycin Trough 10/29/18 10/30/18 10/30/18 23:57 00:06 04:35 RBC Hgb Hct MCV MCH RDW Plt Count Lymph % (Auto) [place] % (Auto) Lymph # Seg Neutrophils % Seg Neuts % (Manual) Lymphocytes % (Manual) Monocytes % (Manual) Seg Neutrophils # Lymphocytes # (Manual) PT INR POC ABG pH 7.488 H POC ABG pCO2 32.1 L 34.9 L POC ABG pO2 144 H Sodium Potassium Chloride Carbon Dioxide BUN Creatinine Glucose POC Glucose 131 H Calcium AST C-Reactive Protein Total Protein Albumin TSH Urine pH Urine WBC (Auto) Vancomycin Trough 10/30/18 10/30/18 10/30/18 05:13 08:54 08:54 RBC 3.56 L Hgb 11.7 L Hct MCV 102 H MCH 33 H RDW 19.2 H Plt Count Lymph % (Auto) [place] % (Auto) Lymph # Seg Neutrophils % Seg Neuts % (Manual) Lymphocytes % (Manual) Monocytes % (Manual) Seg Neutrophils # Lymphocytes # (Manual) PT INR POC ABG pH POC ABG pCO2 POC ABG pO2 Sodium Potassium Chloride Carbon Dioxide BUN Creatinine Glucose POC Glucose 316 H Calcium AST C-Reactive Protein 5.20 H Total Protein Albumin 2.2 L TSH Urine pH Urine WBC (Auto) Vancomycin Trough 10/30/18 10/30/18 10/30/18 08:59 12:03 18:30 RBC Hgb Hct MCV MCH RDW Plt Count Lymph % (Auto) [place] % (Auto) Lymph # Seg Neutrophils % Seg Neuts % (Manual) Lymphocytes % (Manual) Monocytes % (Manual) Seg Neutrophils # Lymphocytes # (Manual) PT INR POC ABG pH POC ABG pCO2 POC ABG pO2 Sodium 146 H D Potassium Chloride Carbon Dioxide BUN 86 H Creatinine 2.7 H Glucose 262 H POC Glucose 232 H 57 L Calcium AST C-Reactive Protein Total Protein Albumin TSH Urine pH Urine WBC (Auto) Vancomycin Trough 10/30/18 10/30/18 10/30/18 18:39 19:07 19:42 RBC Hgb Hct MCV MCH RDW Plt Count Lymph % (Auto) [place] % (Auto) Lymph # Seg Neutrophils % Seg Neuts % (Manual) Lymphocytes % (Manual) Monocytes % (Manual) Seg Neutrophils # Lymphocytes # (Manual) PT INR POC ABG pH POC ABG pCO2 POC ABG pO2 Sodium Potassium Chloride Carbon Dioxide BUN Creatinine Glucose POC Glucose < 40 L 51 L Calcium AST C-Reactive Protein Total Protein Albumin TSH Urine pH 8.0 H Urine WBC (Auto) > 182.0 H Vancomycin Trough 10/30/18 10/30/18 10/30/18 19:51 23:13 23:20 RBC Hgb Hct MCV MCH RDW Plt Count Lymph % (Auto) [place] % (Auto) Lymph # Seg Neutrophils % Seg Neuts % (Manual) Lymphocytes % (Manual) Monocytes % (Manual) Seg Neutrophils # Lymphocytes # (Manual) PT INR POC ABG pH POC ABG pCO2 POC ABG pO2 Sodium Potassium Chloride 108.5 H Carbon Dioxide 21 L BUN 96 H Creatinine 3.0 H Glucose 865 H* 150 H POC Glucose 152 H Calcium AST C-Reactive Protein Total Protein Albumin TSH Urine pH Urine WBC (Auto) Vancomycin Trough 10/30/18 10/31/18 10/31/18 23:40 04:43 04:43 RBC Hgb Hct MCV 100 H MCH 33 H RDW 18.1 H Plt Count Lymph % (Auto) [place] % (Auto) Lymph # Seg Neutrophils % Seg Neuts % (Manual) Lymphocytes % (Manual) 4.0 L Monocytes % (Manual) Seg Neutrophils # Lymphocytes # (Manual) 0.3 L PT INR POC ABG pH POC ABG pCO2 POC ABG pO2 Sodium Potassium Chloride Carbon Dioxide 19 L BUN 98 H Creatinine 3.2 H Glucose 184 H POC Glucose 145 H Calcium AST C-Reactive Protein Total Protein Albumin TSH Urine pH Urine WBC (Auto) Vancomycin Trough 10/31/18 10/31/18 10/31/18 05:44 11:44 13:19 RBC Hgb Hct MCV MCH RDW Plt Count Lymph % (Auto) [place] % (Auto) Lymph # Seg Neutrophils % Seg Neuts % (Manual) Lymphocytes % (Manual) Monocytes % (Manual) Seg Neutrophils # Lymphocytes # (Manual) PT INR POC ABG pH POC ABG pCO2 POC ABG pO2 64 L Sodium Potassium Chloride Carbon Dioxide BUN Creatinine Glucose POC Glucose 142 H 196 H Calcium AST C-Reactive Protein Total Protein Albumin TSH Urine pH Urine WBC (Auto) Vancomycin Trough 10/31/18 11/01/18 11/01/18 17:36 04:07 04:07 RBC 3.40 L Hgb 11.2 L Hct 33.6 L MCV 99 H MCH 33 H RDW 17.5 H Plt Count Lymph % (Auto) [place] % (Auto) Lymph # Seg Neutrophils % Seg Neuts % (Manual) 80.0 H Lymphocytes % (Manual) 4.0 L Monocytes % (Manual) Seg Neutrophils # Lymphocytes # (Manual) 0.3 L PT INR POC ABG pH POC ABG pCO2 POC ABG pO2 Sodium Potassium Chloride Carbon Dioxide 19 L BUN 108 H Creatinine 3.9 H Glucose 138 H POC Glucose 174 H Calcium 7.9 L AST C-Reactive Protein Total Protein Albumin TSH Urine pH Urine WBC (Auto) Vancomycin Trough 11/01/18 11/01/18 11/01/18 05:24 05:36 13:09 RBC Hgb Hct MCV MCH RDW Plt Count Lymph % (Auto) [place] % (Auto) Lymph # Seg Neutrophils % Seg Neuts % (Manual) Lymphocytes % (Manual) Monocytes % (Manual) Seg Neutrophils # Lymphocytes # (Manual) PT INR POC ABG pH POC ABG pCO2 POC ABG pO2 65 L Sodium Potassium Chloride Carbon Dioxide BUN Creatinine Glucose POC Glucose 153 H 249 H Calcium AST C-Reactive Protein Total Protein Albumin TSH Urine pH Urine WBC (Auto) Vancomycin Trough 11/01/18 11/02/18 11/02/18 18:11 05:04 07:17 RBC 3.08 L Hgb 10.1 L Hct 30.1 L MCV 98 H MCH 33 H RDW 16.7 H Plt Count Lymph % (Auto) [place] % (Auto) Lymph # Seg Neutrophils % Seg Neuts % (Manual) 92.0 H Lymphocytes % (Manual) 3.0 L Monocytes % (Manual) Seg Neutrophils # Lymphocytes # (Manual) 0.2 L PT INR POC ABG pH POC ABG pCO2 POC ABG pO2 Sodium Potassium Chloride Carbon Dioxide BUN Creatinine Glucose POC Glucose 175 H 118 H Calcium AST C-Reactive Protein Total Protein Albumin TSH Urine pH Urine WBC (Auto) Vancomycin Trough 11/02/18 11/02/18 11/02/18 07:54 09:32 12:28 RBC Hgb Hct MCV MCH RDW Plt Count Lymph % (Auto) [place] % (Auto) Lymph # Seg Neutrophils % Seg Neuts % (Manual) Lymphocytes % (Manual) Monocytes % (Manual) Seg Neutrophils # Lymphocytes # (Manual) PT INR POC ABG pH 7.514 H POC ABG pCO2 POC ABG pO2 70 L Sodium 135 L Potassium Chloride Carbon Dioxide BUN 48 H Creatinine 2.2 H Glucose 170 H POC Glucose 242 H Calcium 7.4 L AST C-Reactive Protein Total Protein Albumin TSH Urine pH Urine WBC (Auto) Vancomycin Trough 11/02/18 11/03/18 11/03/18 23:32 04:34 05:10 RBC 2.87 L Hgb 9.4 L Hct 28.5 L MCV 99 H MCH 33 H RDW 16.7 H Plt Count Lymph % (Auto) [place] % (Auto) Lymph # Seg Neutrophils % Seg Neuts % (Manual) 91.0 H Lymphocytes % (Manual) 4.0 L Monocytes % (Manual) Seg Neutrophils # Lymphocytes # (Manual) 0.3 L PT INR POC ABG pH POC ABG pCO2 33.2 L POC ABG pO2 76 L Sodium Potassium Chloride Carbon Dioxide BUN Creatinine Glucose POC Glucose 177 H Calcium AST C-Reactive Protein Total Protein Albumin TSH Urine pH Urine WBC (Auto) Vancomycin Trough 11/03/18 11/03/18 11/03/18 06:04 12:26 18:43 RBC Hgb Hct MCV MCH RDW Plt Count Lymph % (Auto) [place] % (Auto) Lymph # Seg Neutrophils % Seg Neuts % (Manual) Lymphocytes % (Manual) Monocytes % (Manual) Seg Neutrophils # Lymphocytes # (Manual) PT INR POC ABG pH POC ABG pCO2 POC ABG pO2 Sodium Potassium Chloride Carbon Dioxide BUN Creatinine Glucose POC Glucose 168 H 196 H 153 H Calcium AST C-Reactive Protein Total Protein Albumin TSH Urine pH Urine WBC (Auto) Vancomycin Trough 11/03/18 11/04/18 11/04/18 23:34 03:50 05:05 RBC 2.74 L Hgb 9.1 L Hct 27.3 L MCV 99 H MCH 33 H RDW 16.5 H Plt Count Lymph % (Auto) [place] % (Auto) Lymph # Seg Neutrophils % Seg Neuts % (Manual) 87.0 H Lymphocytes % (Manual) 7.0 L Monocytes % (Manual) Seg Neutrophils # Lymphocytes # (Manual) 0.5 L PT INR POC ABG pH POC ABG pCO2 31.7 L POC ABG pO2 74 L Sodium Potassium Chloride Carbon Dioxide BUN Creatinine Glucose POC Glucose 213 H Calcium AST C-Reactive Protein Total Protein Albumin TSH Urine pH Urine WBC (Auto) Vancomycin Trough 11/04/18 11/04/18 11/04/18 05:05 05:23 12:26 RBC Hgb Hct MCV MCH RDW Plt Count Lymph % (Auto) [place] % (Auto) Lymph # Seg Neutrophils % Seg Neuts % (Manual) Lymphocytes % (Manual) Monocytes % (Manual) Seg Neutrophils # Lymphocytes # (Manual) PT INR POC ABG pH POC ABG pCO2 POC ABG pO2 Sodium Potassium Chloride Carbon Dioxide BUN 84 H Creatinine 3.3 H Glucose 177 H POC Glucose 196 H 182 H Calcium 7.6 L AST C-Reactive Protein Total Protein Albumin TSH Urine pH Urine WBC (Auto) Vancomycin Trough 11/04/18 11/04/18 11/05/18 13:25 22:36 05:07 RBC Hgb Hct MCV MCH RDW Plt Count Lymph % (Auto) [place] % (Auto) Lymph # Seg Neutrophils % Seg Neuts % (Manual) Lymphocytes % (Manual) Monocytes % (Manual) Seg Neutrophils # Lymphocytes # (Manual) PT INR POC ABG pH POC ABG pCO2 30.1 L POC ABG pO2 63 L Sodium Potassium Chloride Carbon Dioxide BUN Creatinine Glucose POC Glucose 159 H Calcium AST C-Reactive Protein Total Protein Albumin TSH Urine pH Urine WBC (Auto) Vancomycin Trough 4.4 L 11/05/18 11/05/18 11/05/18 05:42 06:36 12:54 RBC Hgb Hct MCV MCH RDW Plt Count Lymph % (Auto) [place] % (Auto) Lymph # Seg Neutrophils % Seg Neuts % (Manual) Lymphocytes % (Manual) Monocytes % (Manual) Seg Neutrophils # Lymphocytes # (Manual) PT INR POC ABG pH POC ABG pCO2 POC ABG pO2 Sodium 134 L Potassium 3.4 L Chloride Carbon Dioxide 18 L BUN 93 H Creatinine 3.7 H Glucose 230 H POC Glucose 233 H 237 H Calcium 7.8 L AST C-Reactive Protein Total Protein Albumin TSH Urine pH Urine WBC (Auto) Vancomycin Trough 11/05/18 11/05/18 11/06/18 19:36 23:35 01:59 RBC Hgb Hct MCV MCH RDW Plt Count Lymph % (Auto) [place] % (Auto) Lymph # Seg Neutrophils % Seg Neuts % (Manual) Lymphocytes % (Manual) Monocytes % (Manual) Seg Neutrophils # Lymphocytes # (Manual) PT INR POC ABG pH POC ABG pCO2 POC ABG pO2 Sodium Potassium Chloride Carbon Dioxide BUN Creatinine Glucose POC Glucose 174 H 56 L 112 H Calcium AST C-Reactive Protein Total Protein Albumin TSH Urine pH Urine WBC (Auto) Vancomycin Trough 11/06/18 11/06/18 11/06/18 04:33 05:06 07:24 RBC 2.83 L Hgb 9.3 L Hct 27.9 L MCV 99 H MCH 33 H RDW 15.9 H Plt Count 133 L Lymph % (Auto) [place] % (Auto) Lymph # Seg Neutrophils % Seg Neuts % (Manual) 94.0 H Lymphocytes % (Manual) 4.0 L Monocytes % (Manual) Seg Neutrophils # Lymphocytes # (Manual) 0.3 L PT INR POC ABG pH POC ABG pCO2 32.4 L POC ABG pO2 73 L Sodium Potassium Chloride Carbon Dioxide BUN Creatinine Glucose POC Glucose 139 H Calcium AST C-Reactive Protein Total Protein Albumin TSH Urine pH Urine WBC (Auto) Vancomycin Trough 11/06/18 11/06/18 11/06/18 07:24 11:52 17:16 RBC Hgb Hct MCV MCH RDW Plt Count Lymph % (Auto) [place] % (Auto) Lymph # Seg Neutrophils % Seg Neuts % (Manual) Lymphocytes % (Manual) Monocytes % (Manual) Seg Neutrophils # Lymphocytes # (Manual) PT INR POC ABG pH POC ABG pCO2 POC ABG pO2 Sodium 136 L Potassium 3.2 L Chloride Carbon Dioxide BUN 59 H Creatinine 2.3 H Glucose 137 H POC Glucose 212 H 194 H Calcium 7.4 L AST C-Reactive Protein Total Protein Albumin TSH Urine pH Urine WBC (Auto) Vancomycin Trough 11/07/18 11/07/18 11/07/18 00:44 05:56 06:12 RBC 2.64 L Hgb 8.7 L Hct 26.3 L MCV 100 H MCH 33 H RDW 15.7 H Plt Count Lymph % (Auto) 4.6 L [place] % (Auto) Lymph # 0.4 L Seg Neutrophils % 89.4 H Seg Neuts % (Manual) Lymphocytes % (Manual) Monocytes % (Manual) Seg Neutrophils # 8.3 H Lymphocytes # (Manual) PT INR POC ABG pH POC ABG pCO2 POC ABG pO2 Sodium Potassium Chloride Carbon Dioxide BUN Creatinine Glucose POC Glucose 193 H 145 H Calcium AST C-Reactive Protein Total Protein Albumin TSH Urine pH Urine WBC (Auto) Vancomycin Trough 11/07/18 11/07/18 11/07/18 06:12 12:20 17:27 RBC Hgb Hct MCV MCH RDW Plt Count Lymph % (Auto) [place] % (Auto) Lymph # Seg Neutrophils % Seg Neuts % (Manual) Lymphocytes % (Manual) Monocytes % (Manual) Seg Neutrophils # Lymphocytes # (Manual) PT INR POC ABG pH POC ABG pCO2 POC ABG pO2 Sodium Potassium Chloride Carbon Dioxide BUN 74 H Creatinine 2.8 H Glucose 143 H POC Glucose 207 H 170 H Calcium 7.7 L AST C-Reactive Protein Total Protein Albumin TSH Urine pH Urine WBC (Auto) Vancomycin Trough 11/07/18 11/08/18 11/08/18 23:40 06:04 07:09 RBC Hgb Hct MCV MCH RDW Plt Count Lymph % (Auto) [place] % (Auto) Lymph # Seg Neutrophils % Seg Neuts % (Manual) Lymphocytes % (Manual) Monocytes % (Manual) Seg Neutrophils # Lymphocytes # (Manual) PT 15.8 H INR 1.18 H POC ABG pH POC ABG pCO2 POC ABG pO2 Sodium Potassium Chloride Carbon Dioxide BUN Creatinine Glucose POC Glucose 188 H 170 H Calcium AST C-Reactive Protein Total Protein Albumin TSH Urine pH Urine WBC (Auto) Vancomycin Trough 11/08/18 11/08/18 11/08/18 11:21 18:29 23:10 RBC Hgb Hct MCV MCH RDW Plt Count Lymph % (Auto) [place] % (Auto) Lymph # Seg Neutrophils % Seg Neuts % (Manual) Lymphocytes % (Manual) Monocytes % (Manual) Seg Neutrophils # Lymphocytes # (Manual) PT INR POC ABG pH POC ABG pCO2 POC ABG pO2 Sodium Potassium Chloride Carbon Dioxide BUN Creatinine Glucose POC Glucose 191 H 224 H 197 H Calcium AST C-Reactive Protein Total Protein Albumin TSH Urine pH Urine WBC (Auto) Vancomycin Trough 11/09/18 11/09/18 11/09/18 04:59 07:35 07:35 RBC 2.51 L Hgb 8.3 L Hct 25.3 L MCV 101 H MCH 33 H RDW Plt Count Lymph % (Auto) [place] % (Auto) Lymph # Seg Neutrophils % Seg Neuts % (Manual) 79.0 H Lymphocytes % (Manual) 8.0 L Monocytes % (Manual) 9.0 H Seg Neutrophils # Lymphocytes # (Manual) 0.6 L PT INR POC ABG pH POC ABG pCO2 POC ABG pO2 Sodium 133 L Potassium 3.5 L Chloride Carbon Dioxide BUN 54 H Creatinine 2.4 H Glucose 166 H POC Glucose 173 H Calcium 8.0 L AST C-Reactive Protein Total Protein Albumin TSH Urine pH Urine WBC (Auto) Vancomycin Trough 11/09/18 11/09/18 11/09/18 11:47 15:17 17:15 RBC Hgb Hct MCV MCH RDW Plt Count Lymph % (Auto) [place] % (Auto) Lymph # Seg Neutrophils % Seg Neuts % (Manual) Lymphocytes % (Manual) Monocytes % (Manual) Seg Neutrophils # Lymphocytes # (Manual) PT INR POC ABG pH POC ABG pCO2 POC ABG pO2 75 L Sodium Potassium Chloride Carbon Dioxide BUN Creatinine Glucose POC Glucose 226 H 202 H Calcium AST C-Reactive Protein Total Protein Albumin TSH Urine pH Urine WBC (Auto) Vancomycin Trough 11/10/18 11/10/18 11/10/18 00:04 04:34 04:34 RBC 2.36 L Hgb 7.8 L Hct 24.1 L MCV 102 H MCH 33 H RDW Plt Count Lymph % (Auto) [place] % (Auto) Lymph # Seg Neutrophils % Seg Neuts % (Manual) 82.0 H Lymphocytes % (Manual) 6.0 L Monocytes % (Manual) Seg Neutrophils # Lymphocytes # (Manual) 0.3 L PT INR POC ABG pH POC ABG pCO2 POC ABG pO2 Sodium 136 L Potassium 3.2 L Chloride Carbon Dioxide BUN 39 H Creatinine 2.0 H Glucose 152 H POC Glucose 197 H Calcium 8.3 L AST C-Reactive Protein Total Protein 6.0 L Albumin 1.4 L TSH Urine pH Urine WBC (Auto) Vancomycin Trough 11/10/18 11/10/18 11/10/18 05:12 12:01 17:48 RBC Hgb Hct MCV MCH RDW Plt Count Lymph % (Auto) [place] % (Auto) Lymph # Seg Neutrophils % Seg Neuts % (Manual) Lymphocytes % (Manual) Monocytes % (Manual) Seg Neutrophils # Lymphocytes # (Manual) PT INR POC ABG pH POC ABG pCO2 POC ABG pO2 Sodium Potassium Chloride Carbon Dioxide BUN Creatinine Glucose POC Glucose 163 H 139 H 215 H Calcium AST C-Reactive Protein Total Protein Albumin TSH Urine pH Urine WBC (Auto) Vancomycin Trough 11/10/18 11/11/18 11/11/18 23:51 04:45 06:05 RBC Hgb Hct MCV MCH RDW Plt Count Lymph % (Auto) [place] % (Auto) Lymph # Seg Neutrophils % Seg Neuts % (Manual) Lymphocytes % (Manual) Monocytes % (Manual) Seg Neutrophils # Lymphocytes # (Manual) PT INR POC ABG pH POC ABG pCO2 34.2 L POC ABG pO2 Sodium Potassium Chloride Carbon Dioxide BUN Creatinine Glucose POC Glucose 243 H 175 H Calcium AST C-Reactive Protein Total Protein Albumin TSH Urine pH Urine WBC (Auto) Vancomycin Trough 11/11/18 11/11/18 11/11/18 06:07 06:07 18:06 RBC 2.27 L Hgb 7.6 L Hct 22.6 L MCV 100 H MCH 33 H RDW Plt Count Lymph % (Auto) 10.7 L [place] % (Auto) Lymph # 0.6 L Seg Neutrophils % 81.0 H Seg Neuts % (Manual) 81.0 H Lymphocytes % (Manual) 11.0 L Monocytes % (Manual) Seg Neutrophils # Lymphocytes # (Manual) 0.6 L PT INR POC ABG pH POC ABG pCO2 POC ABG pO2 Sodium 134 L Potassium 3.2 L Chloride Carbon Dioxide BUN 58 H Creatinine 2.6 H Glucose 139 H POC Glucose 209 H Calcium 7.7 L AST C-Reactive Protein Total Protein 6.2 L Albumin 1.4 L TSH Urine pH Urine WBC (Auto) Vancomycin Trough 11/11/18 11/12/18 11/12/18 23:59 04:35 05:15 RBC 2.28 L Hgb 7.4 L Hct 22.8 L MCV 100 H MCH 33 H RDW Plt Count Lymph % (Auto) 8.1 L [place] % (Auto) 7.9 H Lymph # 0.5 L Seg Neutrophils % 83.2 H Seg Neuts % (Manual) Lymphocytes % (Manual) Monocytes % (Manual) Seg Neutrophils # Lymphocytes # (Manual) PT INR POC ABG pH POC ABG pCO2 31.1 L POC ABG pO2 Sodium Potassium Chloride Carbon Dioxide BUN Creatinine Glucose POC Glucose 143 H Calcium AST C-Reactive Protein Total Protein Albumin TSH Urine pH Urine WBC (Auto) Vancomycin Trough 11/12/18 11/12/18 11/12/18 05:15 05:29 11:18 RBC Hgb Hct MCV MCH RDW Plt Count Lymph % (Auto) [place] % (Auto) Lymph # Seg Neutrophils % Seg Neuts % (Manual) Lymphocytes % (Manual) Monocytes % (Manual) Seg Neutrophils # Lymphocytes # (Manual) PT INR POC ABG pH POC ABG pCO2 POC ABG pO2 Sodium 133 L Potassium Chloride Carbon Dioxide 21 L BUN 70 H Creatinine 2.8 H Glucose 165 H POC Glucose 186 H 153 H Calcium 7.9 L AST 81 H C-Reactive Protein Total Protein 5.9 L Albumin 1.4 L TSH Urine pH Urine WBC (Auto) Vancomycin Trough 11/12/18 11/12/18 11/13/18 17:55 23:29 05:13 RBC 2.15 L Hgb 7.1 L Hct 21.6 L MCV 101 H MCH 33 H RDW Plt Count Lymph % (Auto) [place] % (Auto) Lymph # Seg Neutrophils % Seg Neuts % (Manual) 81.0 H Lymphocytes % (Manual) 3.0 L Monocytes % (Manual) 8.0 H Seg Neutrophils # Lymphocytes # (Manual) 0.2 L PT INR POC ABG pH POC ABG pCO2 POC ABG pO2 Sodium Potassium Chloride Carbon Dioxide BUN Creatinine Glucose POC Glucose 138 H 227 H Calcium AST C-Reactive Protein Total Protein Albumin TSH Urine pH Urine WBC (Auto) Vancomycin Trough 11/13/18 11/13/18 11/13/18 05:13 05:25 11:21 RBC Hgb Hct MCV MCH RDW Plt Count Lymph % (Auto) [place] % (Auto) Lymph # Seg Neutrophils % Seg Neuts % (Manual) Lymphocytes % (Manual) Monocytes % (Manual) Seg Neutrophils # Lymphocytes # (Manual) PT INR POC ABG pH POC ABG pCO2 POC ABG pO2 Sodium 133 L Potassium Chloride Carbon Dioxide BUN 48 H Creatinine 2.2 H Glucose 155 H POC Glucose 159 H 149 H Calcium 8.3 L AST C-Reactive Protein Total Protein Albumin TSH Urine pH Urine WBC (Auto) Vancomycin Trough 11/13/18 11/13/18 11/14/18 18:06 23:29 04:32 RBC Hgb Hct MCV MCH RDW Plt Count Lymph % (Auto) [place] % (Auto) Lymph # Seg Neutrophils % Seg Neuts % (Manual) Lymphocytes % (Manual) Monocytes % (Manual) Seg Neutrophils # Lymphocytes # (Manual) PT 16.9 H INR 1.29 H POC ABG pH POC ABG pCO2 POC ABG pO2 Sodium Potassium Chloride Carbon Dioxide BUN Creatinine Glucose POC Glucose 192 H 176 H Calcium AST C-Reactive Protein Total Protein Albumin TSH Urine pH Urine WBC (Auto) Vancomycin Trough 11/14/18 11/14/18 11/14/18 04:32 04:32 05:59 RBC 2.16 L Hgb 7.0 L Hct 21.5 L MCV 100 H MCH 33 H RDW Plt Count Lymph % (Auto) 5.3 L [place] % (Auto) 9.3 H Lymph # 0.4 L Seg Neutrophils % 84.8 H Seg Neuts % (Manual) Lymphocytes % (Manual) Monocytes % (Manual) Seg Neutrophils # Lymphocytes # (Manual) PT INR POC ABG pH POC ABG pCO2 POC ABG pO2 Sodium 131 L Potassium Chloride 97.6 L Carbon Dioxide BUN 59 H Creatinine 2.6 H Glucose 129 H POC Glucose 135 H Calcium 8.3 L AST C-Reactive Protein Total Protein Albumin TSH Urine pH Urine WBC (Auto) Vancomycin Trough Chest x-ray: image reviewed
--- NOTE | 2018-11-14 11:46 | Event Note ---
Date: 11/14/18 Confirmed with staff that he is ok for procedure today. No events o/n. No exam change. Trach/PEG this afternoon.
--- NOTE | 2018-11-14 12:43 | Progress Note ---
Assessment and Plan Cultures: 10/29/2018 Blood culture: No growth 10/30/2018 sputum culture: MRSA 10/30/2018 urine culture: Mixed growth 11/02/2018 blood culture: no growth 11/09/2018 blood culture: no growth A/P: 73-year-old male with prostate cancer, ESRD on hemodialysis, diabetes mellitus, peripheral vascular disease status post right-sided AKA is [facility] to the [facility] due to altered mental status. Apparently, the patient had been refusing dialysis for a week prior to admission. Now with: 1) Severe sepsis with shock s/p PEA arrest: off pressors today 11/14/2018, mechanical ventilation. 2) Right-sided pneumonia with acute hypoxic respiratory failure: On mechanical ventilation. Chest x-ray showing right-sided infiltrate. Sputum culture growing MRSA. Completed 14 days of IV Vancomycin 11/13/2018. 3) Possible UTI: Patient with indwelling suprapubic catheter. Also with ESRD on hemodialysis. This makes UA difficult to interpret for infection since quite likely to have urinary sediment. 4) ESRD on hemodialysis: Noncompliant. Renally dose abx. 5) Peripheral vascular disease: Status post right BKA, left TMA. 6) Right gluteal decubitus ulcer with eschar: continue wound care. 7) R sphenoid sinusitis noted on CT: Completed 5 days of Cefepime. Recs: completed 14 days of IV Vancomycin and 5 days of IV Cefepime on 11/13/2018 if febrile again >101.5F, consider removing femoral Trialysis cath Overall extremely poor prognosis Comfort/palliative care Aaron Regan MD [facility] C: [phone] O: [phone] F: [phone] Subjective Date of service: 11/14/18 Principal diagnosis: sepsis, acute resp, failure. Interval history: Low grade temperatures. Discussed with RN, no fever, chart with a typo. Remains unresponsive, on the ventilator. Weaned off pressors. Objective - Exam Narrative Exam: Physical Exam: Constitutional: unresponsive, intubated Head, Ears, Nose: Normocephalic, atraumatic. External ears, nose normal Eyes: Conjunctivae/corneas clear. No icterus. No ptosis. Neck: Supple, no meningeal signs Oral: intubated Cardiovascular: S1, S2 normal. Respiratory: Good air entry, clear to auscultation bilaterally GI: Soft, bowel sounds hypoactive. Suprapubic catheter + Musculoskeletal: Right AKA, left TMA stumps healed. Right gluteal region with eschar. Left femoral trialysis cath +. Edema + Skin: No rash or abscess Hem/Lymphatic: No palpable cervical or supraclavicular nodes. No lymphangitis Psych: no agitation Neurological: unresponsive, intubated, on vent. - Constitutional Vitals: Vital Signs Temp Pulse Resp BP Pulse Ox 96.8 F L 98 H 27 H 105/51 98 11/14/18 08:00 11/14/18 12:07 11/14/18 08:30 11/14/18 12:07 11/14/18 12:07 Temperature -Last 24 Hours Temperature 96.8 F Temperature 135 F Temperature 100.0 F Temperature 99.7 F Temperature 99.1 F Temperature 98.2 F - Labs CBC & Chem 7: 11/14/18 04:32 11/14/18 04:32 Labs: Abnormal lab results 11/13/18 11/13/18 11/14/18 Range/Units 18:06 23:29 04:32 RBC (3.65-5.03) M/mm3 Hgb (11.8-15.2) gm/dl Hct (35.5-45.6) % MCV (84-94) fl MCH (28-32) pg Lymph % (Auto) (13.4-35.0) % [place] % (Auto) (0.0-7.3) % Lymph # (1.2-5.4) K/mm3 Seg Neutrophils % (40.0-70.0) % PT 16.9 H (12.2-14.9) Sec. INR 1.29 H (0.87-1.13) Sodium (137-145) mmol/L Chloride (98-107) mmol/L BUN (9-20) mg/dL Creatinine (0.8-1.5) mg/dL Glucose (75-100) mg/dL POC Glucose 192 H 176 H (70-105) Calcium (8.4-10.2) mg/dL 11/14/18 11/14/18 11/14/18 Range/Units 04:32 04:32 05:59 RBC 2.16 L (3.65-5.03) M/mm3 Hgb 7.0 L (11.8-15.2) gm/dl Hct 21.5 L (35.5-45.6) % MCV 100 H (84-94) fl MCH 33 H (28-32) pg Lymph % (Auto) 5.3 L (13.4-35.0) % [place] % (Auto) 9.3 H (0.0-7.3) % Lymph # 0.4 L (1.2-5.4) K/mm3 Seg Neutrophils % 84.8 H (40.0-70.0) % PT (12.2-14.9) Sec. INR (0.87-1.13) Sodium 131 L (137-145) mmol/L Chloride 97.6 L (98-107) mmol/L BUN 59 H (9-20) mg/dL Creatinine 2.6 H (0.8-1.5) mg/dL Glucose 129 H (75-100) mg/dL POC Glucose 135 H (70-105) Calcium 8.3 L (8.4-10.2) mg/dL 11/14/18 Range/Units 12:15 RBC (3.65-5.03) M/mm3 Hgb (11.8-15.2) gm/dl Hct (35.5-45.6) % MCV (84-94) fl MCH (28-32) pg Lymph % (Auto) (13.4-35.0) % [place] % (Auto) (0.0-7.3) % Lymph # (1.2-5.4) K/mm3 Seg Neutrophils % (40.0-70.0) % PT (12.2-14.9) Sec. INR (0.87-1.13) Sodium (137-145) mmol/L Chloride (98-107) mmol/L BUN (9-20) mg/dL Creatinine (0.8-1.5) mg/dL Glucose (75-100) mg/dL POC Glucose 204 H (70-105) Calcium (8.4-10.2) mg/dL
[2018-11-14] MEDS ORDERED: XYLOCAINE MPF 2% ONE (13:50)
[2018-11-14] MEDS ORDERED: ZEMURON IV ONE (13:50)
[2018-11-14] MEDS ORDERED: DIPRIVAN 10 MG/ML IV ONE ×2 (13:50)
[2018-11-14] MEDS ORDERED: SUBLIMAZE ONE (13:50)
--- NOTE | 2018-11-14 14:53 | Procedure Note ---
Date of procedure: 11/14/18 Pre-op diagnosis: respiratory failure Post-op diagnosis: same Procedure: Consent was on the chart. Time out was performed. Sterile prep and drape was done. Anesthesia was managed by anesthesia provider. Lidocaine was used to anesthetize an area about two finger breadths above the sternal notch. Transverse incision was made. Blunt dissection was carried down to trachea. Under bronchoscopic guidance, a finder needle was used to enter the trachea. Thereafter, the introducer needle was inserted. It was approximately at the second tracheal ring. Tract was dilated and tracheostomy tube was easily inserted. Balloon was inflated. Position was rechecked via bronchoscopy through the tracheostomy tube. We were at least 2-3 cm above the albert. We had good inspiratory and expiratory volumes. CXR pending. There were no apparent complications at the end of the case. Findings: thickened tissue above trachea Implants: 8 Shiley Trach Anesthesia: MAC Surgeon: DASIA MEYER Estimated blood loss: minimal Pathology: none Condition: stable Disposition: ICU
[2018-11-14] MEDS ORDERED: AMIDATE IV ONE (15:08)
[2018-11-14] MEDS ORDERED: NACL 0.9 (PRIMING MACHINE ONLY DIALYSIS) MC ONE (15:25)
--- NOTE | 2018-11-14 16:04 | Procedure Note ---
Date of procedure: 11/14/18 Pre-op diagnosis: VDRF Post-op diagnosis: same Procedure: PEG tube placement Findings: Time out performed at the start of the case. Bite block placed after anesthesia given. The endoscope was passed into the mouth and through the esophagus with mild resistance due to narrow esophagus under direct visualization. The stomach was entered and there was some gastritis. A spot was chosen for PEG tube placement. There was transillumination through the abdominal wall. Dr. Meyer prepped the abdomen and the skin was anesthetized at the intended incision site. A small incision was made using an 11 blade. The introducer needle and breakway catheter were introduced into the stomach under direct visualization. The needle was removed and wire passed through the catheter. The wire was grasped with the snare and pulled through the mouth along with the endoscope. The wire was attached to the PEG tube which was pulled through the abdominal incision. The outer bumper was at 2cm at the skin. The endoscope was once again passed into the stomach. The inner bumper was flush with the gastric wall. The antrum and pylorus were unremarkable. The first portion of the duodenum was unremarkable. The scope was retroflexed and the fundus had some bilious fluid which was suctioned out. The stomach was slowly desufflated and the scope brought out through the esophagus under direct visualization. The esophagus mucosa was unremarkable. The patient tolerated the procedure well. All sharps were disposed of appropriately. The PEG was assembled in the usual fashion. Anesthesia: coy CHRISTIAN Surgeon: WARREN GIBSON Claims Processor: DASIA MEYER (cosurgeon) Estimated blood loss: minimal Pathology: none Condition: stable Disposition: no change
--- NOTE | 2018-11-14 16:07 | Procedure Note ---
Date of procedure: 11/14/18 Pre-op diagnosis: VDRF Post-op diagnosis: same Procedure: Fiberoptic bronchoscopy Findings: Time out performed. Anesthesia administered. The bronchoscope was passed through the ETT using an adapter. There was inflammatory changes of the upper trachea with patchy white exudate. Dr. Gonzalez performed the tracheostomy under direct visualization. Bronchoscopy through the tracheostomy showed that it was 3 cm above the albert. There was no bleeding seen. Any visible fluid was suctioned. The ventilator was attached and inspiratory and expiratory volumes were satisfactory. The patient tolerated the procedure well. Please see separate note for details of tracheostomy placement. Anesthesia: GETA, local Surgeon: WARREN GIBSON Estimated blood loss: minimal Pathology: none Condition: stable Disposition: no change
--- NOTE | 2018-11-14 17:33 | XRay Report ---
PROCEDURE: XR CHEST 1V AP TECHNIQUE: AP view of the chest HISTORY: s/p trach COMPARISONS: Comparison is dated October 29, 2018 FINDINGS: Placement of tracheostomy tube overlying the mid thoracic trachea. There is some haziness at the righ t lung base likely reflecting a layering effusion. There is mild blunting of the left costophrenic an gle. Cardiac and mediastinal contours are unchanged. IMPRESSION: Bilateral pleural effusions Tracheostomy appears in satisfactory position. This document is electronically signed by Leonel Wolff MD., November 14 2018 05:31:32 PM ET
[2018-11-14] MEDS ORDERED: NACL 0.9% 250ML 250 ML IV ONE (18:24)
[2018-11-14] MEDS ORDERED: NACL 0.9% 500 ML 500 ML IV ONE (18:25)
[2018-11-14] MEDS ORDERED: PROCRIT ONE (18:59)
--- NOTE | 2018-11-14 19:09 | Progress Note ---
Assessment and Plan - Patient Problems (1) Altered mental status Current Visit: Yes Status: Acute Qualifiers: Altered mental status type: unspecified Qualified Code(s): R41.82 - Altered mental status, unspecified Plan to address problem: most likely due to sinus infection follow ID. (2) Hyperkalemia Current Visit: Yes Status: Acute Plan to address problem: Treated, and continue to correct with HD. corrected. (3) Hypernatremia Current Visit: Yes Status: Acute Plan to address problem: correct with HD. As above when feasible with the Renal service. patient continues with HD. (4) Uremia Current Visit: Yes Status: Acute Plan to address problem: treat underlying cause. Follow Renal. (5) Acute encephalopathy Current Visit: Yes Status: Chronic Plan to address problem: supportive care. (6) ESRD needing dialysis Current Visit: Yes Status: Chronic Plan to address problem: Continue on HD. as above once feasible. (7) Sepsis Current Visit: Yes Status: Acute Plan to address problem: treat the etiology.Most likely due to sinus infection. Subjective Date of service: 11/14/18 Principal diagnosis: sepsis, acute resp, failure. Interval history: Patient seen/examined,in the ICU. I have spoken to the daughter, and his sister today, regarding plan of care, and prognosis. I have rec less aggressive path, including hospice. They will think about it ,and let me know. Mean while, will continue current management. His prognosis is quite poor at this time. Patient seen/examined, resting in bed, labs reviewed.Still on the vent.If unable to be weaned off the vent, on timely /expected time, will push for LTAC eval[facility]placement at [facility] to start preparing for this possibility. Patient seen/examined, resting in bed, still not wean able yet.He had HD today. patient seen/examined, resting in bed. labs/records/notes reviewed, including ID consult notes. Cxr with PNA., 24hr Tm 102. Patient seen/examined, resting in bed, NR, BP low, and Levo increased back up ,to maintain any appreciable reading. Labs reviewed. I have discussed/updated the daughter Ramón today, discussed code status again, and prognosis,as well as long time plan/disposition.She has signed a Do NOT Resuscitate, and the other family member suppose to sign hers today, or tomorrow. I have recommended, and she is in agreement to the LTAC placement at [facility], where he can also get trached, if, and when feasible. I want the porter sample case to act on this on timely manner.MRSA positive in the sputum.ID on the case. Patient seen/examined, resting in bed, labs reviewed. Patient is now an AND status.Plan for LTAC referral by the porter sample case, I have spoken to the family about [facility] LT[facility], and she was in agreement. patient seen/examined, resting in bed, records reviewed, case d/w Dr Garcia.I had already spoken to the primary daughter about LTAC this past week, and she was in agreement. I do not think patient has to be trached/peg here before d/c, and transfer to the LTAC, both the patient, and family will have ample time to think tis over ,if /when it comes to that.I will however continue to speak to them. PLs read notes, so we can all be on the same plan for disposition. patient seen/examined, resting in bed. labs/records reviewed, family meeting held with the 3 Daughters by me. Spent time discussing prognosis, trach/peg. they have agreed to these procedures, even if there could be serious complication. I will consult ENT- Dr West,while waiting on EEG results.Once completed, will transfer to the LTAC as agreed to by the family.I have ensured them , that the prognosis is poor, no matter what is done hence forth. patient seen/examined, resting in bed, discussed EEG results with pulm, and with the Nurse. This an abn EEG, and the family had indicated the wish to proceed with treach/peg.Will consult Gen surgery. Patient seen/examined, resting in bed, not readily responsive. Gen surgery awaiting family meeting between himself, and the family, before proceeding with any surgery. I have had all the meeting needed with the family , and every thing is documented on the notes.Dr Phipps will cover my rounds from monday till monday. I am avalable on the phone [phone]. Patient seen/examined, labs/records reviewed, d/w family 24hrs ago, they still want to go ahead with traech/peg. . I havs spoken tp pulm today, and she remains in aggrement, as i am. patient needs this done, so he can transfer to LTAC. Patient seen/examined, resting in bed, labs reviewed, H/H dropped to 7.1. he is scheduled for Surgery tomorrow.Will replace PRBc if level 7, or below. Patient seen/examined, resting in bed, records reviewed, as well as notes. he is s/p peg/treach placement. Just finished HD with out any fluid take ot due to hypotension. He has just been taken off pressors. Will plan d/c to LTAC in the next day or so. Objective - Constitutional Vitals: Vital Signs - 12hr 11/14/18 11/14/18 11/14/18 07:15 07:30 07:45 Temperature Pulse Rate 99 H 99 H 97 H Pulse Rate [ From Monitor] Respiratory 30 H 25 H 27 H Rate Blood Pressure 111/49 105/49 109/52 O2 Sat by Pulse 93 94 94 Oximetry O2 Sat by Pulse Oximetry [ Anterior Bilateral] 11/14/18 11/14/18 11/14/18 08:00 08:03 08:14 Temperature 96.8 F L Pulse Rate 95 H 97 H 95 H Pulse Rate [ 94 H From Monitor] Respiratory 34 H Rate Blood Pressure 101/50 101/50 O2 Sat by Pulse 97 93 95 Oximetry O2 Sat by Pulse Oximetry [ Anterior Bilateral] 11/14/18 11/14/18 11/14/18 08:15 08:30 08:45 Temperature Pulse Rate 96 H 95 H 92 H Pulse Rate [ From Monitor] Respiratory 27 H 27 H 24 Rate Blood Pressure 92/45 101/48 103/49 O2 Sat by Pulse 95 95 96 Oximetry O2 Sat by Pulse Oximetry [ Anterior Bilateral] 11/14/18 11/14/18 11/14/18 09:00 09:15 09:30 Temperature Pulse Rate 91 H 89 89 Pulse Rate [ From Monitor] Respiratory 23 26 H 26 H Rate Blood Pressure 114/54 112/52 105/51 O2 Sat by Pulse 97 97 96 Oximetry O2 Sat by Pulse Oximetry [ Anterior Bilateral] 11/14/18 11/14/18 11/14/18 09:45 10:00 10:15 Temperature Pulse Rate 89 88 88 Pulse Rate [ From Monitor] Respiratory 26 H 27 H 29 H Rate Blood Pressure 103/47 103/47 101/48 O2 Sat by Pulse 96 96 97 Oximetry O2 Sat by Pulse Oximetry [ Anterior Bilateral] 04/17/19 04/17/19 04/17/19 10:30 10:45 11:00 Temperature Pulse Rate 86 89 87 Pulse Rate [ From Monitor] Respiratory 26 H 31 H 30 H Rate Blood Pressure 106/50 117/58 97/48 O2 Sat by Pulse 97 98 97 Oximetry O2 Sat by Pulse Oximetry [ Anterior Bilateral] 11/14/18 11/14/18 11/14/18 11:15 11:30 11:45 Temperature Pulse Rate 86 86 84 Pulse Rate [ From Monitor] Respiratory 29 H 28 H 27 H Rate Blood Pressure 103/50 101/49 98/48 O2 Sat by Pulse 98 98 98 Oximetry O2 Sat by Pulse Oximetry [ Anterior Bilateral] 11/14/18 11/14/18 11/14/18 12:00 12:07 12:15 Temperature 97.7 F Pulse Rate 85 98 H 85 Pulse Rate [ From Monitor] Respiratory 26 H 28 H Rate Blood Pressure 105/51 105/51 97/48 O2 Sat by Pulse 98 98 98 Oximetry O2 Sat by Pulse Oximetry [ Anterior Bilateral] 11/14/18 11/14/18 11/14/18 12:30 12:45 13:00 Temperature Pulse Rate 84 83 82 Pulse Rate [ From Monitor] Respiratory 28 H 28 H 26 H Rate Blood Pressure 99/48 99/48 98/47 O2 Sat by Pulse 99 99 100 Oximetry O2 Sat by Pulse Oximetry [ Anterior Bilateral] 11/14/18 11/14/18 11/14/18 13:15 13:30 13:45 Temperature Pulse Rate 83 84 85 Pulse Rate [ From Monitor] Respiratory 28 H 29 H 29 H Rate Blood Pressure 100/49 108/54 121/61 O2 Sat by Pulse 100 100 100 Oximetry O2 Sat by Pulse Oximetry [ Anterior Bilateral] 11/14/18 11/14/18 11/14/18 14:00 14:15 14:30 Temperature Pulse Rate 88 85 88 Pulse Rate [ From Monitor] Respiratory 25 H 12 12 Rate Blood Pressure 112/67 132/57 131/49 O2 Sat by Pulse 100 100 100 Oximetry O2 Sat by Pulse Oximetry [ Anterior Bilateral] 11/14/18 11/14/18 11/14/18 14:45 15:00 15:08 Temperature 97.8 F Pulse Rate 92 H 94 H 92 H Pulse Rate [ From Monitor] Respiratory 10 L 15 14 Rate Blood Pressure 136/51 121/50 113/47 O2 Sat by Pulse 100 100 100 Oximetry O2 Sat by Pulse Oximetry [ Anterior Bilateral] 11/14/18 11/14/18 11/14/18 15:15 15:30 15:40 Temperature 97.7 F Pulse Rate 96 H 93 H 92 H Pulse Rate [ From Monitor] Respiratory 24 17 25 H Rate Blood Pressure 99/45 87/45 99/45 O2 Sat by Pulse 100 100 Oximetry O2 Sat by Pulse 100 Oximetry [ Anterior Bilateral] 11/14/18 11/14/18 11/14/18 15:45 16:00 16:15 Temperature 97.8 F Pulse Rate 91 H 95 H 100 H Pulse Rate [ 102 H From Monitor] Respiratory 27 H 34 H 28 H Rate Blood Pressure 97/46 119/55 137/62 O2 Sat by Pulse 100 96 100 Oximetry O2 Sat by Pulse Oximetry [ Anterior Bilateral] 11/14/18 11/14/18 11/14/18 16:30 16:39 16:45 Temperature Pulse Rate 100 H 102 H Pulse Rate [ From Monitor] Respiratory 27 H 27 H Rate Blood Pressure 151/64 117/50 134/61 O2 Sat by Pulse 100 96 98 Oximetry O2 Sat by Pulse Oximetry [ Anterior Bilateral] 11/14/18 11/14/18 11/14/18 17:00 17:15 17:30 Temperature Pulse Rate 105 H 114 H 115 H Pulse Rate [ From Monitor] Respiratory 25 H 26 H 24 Rate Blood Pressure 131/54 120/47 109/47 O2 Sat by Pulse 97 98 98 Oximetry O2 Sat by Pulse Oximetry [ Anterior Bilateral] 11/14/18 11/14/18 11/14/18 17:45 18:00 18:15 Temperature Pulse Rate 112 H 112 H 110 H Pulse Rate [ From Monitor] Respiratory 24 25 H 25 H Rate Blood Pressure 84/51 85/48 79/43 O2 Sat by Pulse 99 100 99 Oximetry O2 Sat by Pulse Oximetry [ Anterior Bilateral] 11/14/18 18:30 Temperature Pulse Rate 111 H Pulse Rate [ From Monitor] Respiratory Rate Blood Pressure 107/51 O2 Sat by Pulse Oximetry O2 Sat by Pulse Oximetry [ Anterior Bilateral] General appearance: Present: no acute distress, cachectic - EENT Eyes: PERRL, EOM intact ENT: hearing intact, clear oral mucosa Ears: bilateral: normal - Neck Neck: supple, normal ROM - Respiratory Respiratory: bilateral: other (on the vent.) - Breasts Breasts: deferred - Cardiovascular Rhythm: regular Heart Sounds: Present: S1 & S2. Absent: gallop, rub Extremities: pulses intact, No edema, normal color, Full ROM - Gastrointestinal General gastrointestinal: Present: soft, non-tender, non-distended, normal bowel sounds Rectal Exam: deferred - Genitourinary Male genitourinary: deferred - Integumentary Integumentary: clear, warm, dry - Labs CBC & Chem 7: 11/14/18 04:32 11/14/18 04:32 Labs: Abnormal lab results 11/13/18 11/14/18 11/14/18 Range/Units 23:29 04:32 04:32 RBC 2.16 L (3.65-5.03) M/mm3 Hgb 7.0 L (11.8-15.2) gm/dl Hct 21.5 L (35.5-45.6) % MCV 100 H (84-94) fl MCH 33 H (28-32) pg Lymph % (Auto) 5.3 L (13.4-35.0) % [place] % (Auto) 9.3 H (0.0-7.3) % Lymph # 0.4 L (1.2-5.4) K/mm3 Seg Neutrophils % 84.8 H (40.0-70.0) % PT 16.9 H (12.2-14.9) Sec. INR 1.29 H (0.87-1.13) Sodium (137-145) mmol/L Chloride (98-107) mmol/L BUN (9-20) mg/dL Creatinine (0.8-1.5) mg/dL Glucose (75-100) mg/dL POC Glucose 176 H (70-105) Calcium (8.4-10.2) mg/dL 11/14/18 11/14/18 11/14/18 Range/Units 04:32 05:59 12:15 RBC (3.65-5.03) M/mm3 Hgb (11.8-15.2) gm/dl Hct (35.5-45.6) % MCV (84-94) fl MCH (28-32) pg Lymph % (Auto) (13.4-35.0) % [place] % (Auto) (0.0-7.3) % Lymph # (1.2-5.4) K/mm3 Seg Neutrophils % (40.0-70.0) % PT (12.2-14.9) Sec. INR (0.87-1.13) Sodium 131 L (137-145) mmol/L Chloride 97.6 L (98-107) mmol/L BUN 59 H (9-20) mg/dL Creatinine 2.6 H (0.8-1.5) mg/dL Glucose 129 H (75-100) mg/dL POC Glucose 135 H 204 H (70-105) Calcium 8.3 L (8.4-10.2) mg/dL Medications & Allergies - Medications Allergies/Adverse Reactions: Allergies No Known Allergies Allergy (Verified 01/18/18 20:10) Home Medications: Home Medications Medication Instructions Recorded Confirmed Last Taken Type Acetaminophen [Acetaminophen TAB] 650 mg PO Q4H PRN 03/12/18 10/31/18 Unknown History Calcium Acetate [Phoslo] 667 mg PO TID 03/12/18 10/31/18 05/13/18 17:00 History Carvedilol [Coreg] 6.25 mg PO BID 03/12/18 10/31/18 05/13/18 09:00 History Ergocalciferol 50,000 unit PO QWEEK 03/12/18 10/31/18 05/11/18 09:00 History Apixaban [Eliquis] 2.5 mg PO BID tablet 08/21/18 10/31/18 Unknown Rx Megestrol [Megace] 400 mg PO QDAY 10/31/18 10/31/18 Unknown History Mirtazapine [Remeron] 15 mg PO QHS 10/31/18 10/31/18 Unknown History Elaine-José Rx Tablet 1 tab PO QDAY 10/31/18 10/31/18 Unknown History Sodium Bicarbonate 650 mg PO BID 10/31/18 10/31/18 Unknown History traMADol [Ultram 50 MG tab] 25 mg PO Q12H PRN 10/31/18 10/31/18 Unknown History Active Medications: Generic Name Dose Route Start Last Admin Trade Name Freq PRN Reason Stop Dose Admin Acetaminophen 650 mg 11/02/18 09:25 11/09/18 18:46 Tylenol FEEDTUBE 650 mg Q6H PRN Administration Fever >101 Lipase/Protease/Amylase 1 each 11/01/18 10:[address] 10,500 Unit FEEDTUBE PRN PRN For Clogged Feeding Tube Calcium Acetate 667 mg 11/13/18 08:00 11/14/18 11:45 Phoslo PO 667 mg TIDWM KIRSTEN Administration Epoetin [place] 20,000 unit 11/05/18 10:21 11/12/18 17:30 Procrit SUB-Q 20,000 unit ALEJO PRN Administration hemodialysis Ergocalciferol 50,000 unit 11/16/18 10:00 Vitamin D2 PO Fr KIRSTEN Famotidine 20 mg 11/01/18 10:00 11/14/18 09:43 Pepcid PO 20 mg DAILY KIRSTEN Administration Heparin Sodium (Porcine) 5,000 unit 10/29/18 22:00 11/13/18 05:09 Heparin SUB-Q 5,000 unit Q8HR KIRSTEN Administration Norepinephrine 4 mg in 250 mls @ 7.5 mls/hr 10/30/18 01:00 11/14/18 06:15 Levophed Drip 4 Mg/Ns 250 Ml IV 0 mcg/min TITR KIRSTEN 0 mls/hr Titration Protocol 2 MCG/MIN Sodium Chloride 100 mls @ 999 mls/hr 11/09/18 08:48 Nacl 0.9% IV ALEJO PRN Hypotension Sodium Chloride 100 mls @ 999 mls/hr 11/12/18 08:43 Nacl 0.9% IV ALEJO PRN Hypotension Dextrose/Sodium Chloride 1,000 mls @ 62.5 mls/hr 11/14/18 00:01 11/13/18 23:57 D5/0.45ns IV 62.5 mls/hr DIRECT KIRSTEN Administration Sodium Chloride 100 mls @ 999 mls/hr 11/14/18 08:49 Nacl 0.9% IV ALEJO PRN Hypotension Insulin Human Lispro 0 unit 10/30/18 10:00 11/14/18 16:45 Humalog SUB-Q Not Given Q6HR KIRSTEN Protocol Levetiracetam 500 mg 11/07/18 10:00 11/14/18 09:44 Keppra PO 500 mg BID KIRSTEN Administration Midodrine 10 mg 11/13/18 11:00 11/14/18 08:23 Proamatine PO 10 mg TID KIRSTEN Administration Multivit/Ca Carb/B Cmplx/FA/Prenat 1 cap 11/13/18 10:00 11/14/18 09:43 Renal Caps PO 1 cap QDAY KIRSTEN Administration Simple Syrup 15 ml 11/01/18 10:04 11/06/18 00:09 Simple Syrup FEEDTUBE 15 ml PRN PRN Administration Hypoglycemia Simple Syrup 30 ml 11/01/18 10:04 Simple Syrup FEEDTUBE PRN PRN Hypoglycemia Sodium Bicarbonate 325 mg 11/01/18 10:04 Sodium Bicarbonate FEEDTUBE PRN PRN For Clogged Feeding Tube Sodium Bicarbonate 650 mg 11/13/18 10:00 11/14/18 09:43 Sodium Bicarbonate PO 650 mg BID KIRSTEN Administration
[2018-11-14] MEDS ORDERED: NACL 0.9% 500 ML 500 ML IV NR (19:11)
[2018-11-14] MEDS: LEVOPHED DRIP 4 MG/NS 250 ML 4 MG/250 ML BAG IV SCH (21:44)
[2018-11-14] MEDS ORDERED: HEPARIN SUB-Q ONE (23:30)
[2018-11-15] MEDS: HumaLOG SUB-Q SCH ×5 (00:17→18:47)
[2018-11-15] MEDS: HEPARIN SUB-Q SCH ×3 (05:48→22:16)
[2018-11-15 08:07] LABS: Hematocrit 25.2 % (35.5-45.6); Hemoglobin 8.3 gm/dl (11.8-15.2); Mean Corpuscular HGB Conc 33 % (32-34); Mean Corpuscular Volume 97 fl (84-94); Platelet Count 222 K/mm3 (140-440); Red Blood Count 2.59 M/mm3 (3.65-5.03); Red Cell Distribution Width 15.2 % (13.2-15.2)
--- NOTE | 2018-11-15 09:05 | Progress Note ---
Assessment and Plan - Patient Problems (1) Respiratory failure Current Visit: Yes Status: Acute Qualifiers: Chronicity: acute Respiratory failure complication: unspecified whether with hypoxia or hypercapnia Qualified Code(s): J96.00 - Acute respiratory failure, unspecified whether with hypoxia or hypercapnia Plan to address problem: Pt stable. s/p Trach/PEG placement - 11/14 - POD#1. No concerns at this time. Routine care. Sill sign off. Please call with questions. time=10min Subjective Date of service: 11/15/18 Patient Reports: Positive: other (no events) Objective Vital Signs - 12hr 11/14/18 11/14/18 11/14/18 21:15 21:30 21:40 Temperature Pulse Rate 99 H 97 H 97 H Pulse Rate [ From Monitor] Pulse Rate [ Left Brachial] Pulse Rate [ Left Radial] Pulse Rate [ Right Radial] Respiratory 28 H 27 H 25 H Rate Blood Pressure 90/49 104/51 104/51 O2 Sat by Pulse 98 100 98 Oximetry O2 Sat by Pulse Oximetry [ Assessment] 11/14/18 11/14/18 11/14/18 21:45 22:00 22:15 Temperature Pulse Rate 100 H 99 H 99 H Pulse Rate [ From Monitor] Pulse Rate [ Left Brachial] Pulse Rate [ Left Radial] Pulse Rate [ Right Radial] Respiratory 28 H 27 H 29 H Rate Blood Pressure 91/51 85/48 105/57 O2 Sat by Pulse 99 99 Oximetry O2 Sat by Pulse Oximetry [ Assessment] 11/14/18 11/14/18 11/14/18 22:30 22:45 23:00 Temperature Pulse Rate 96 H 95 H 96 H Pulse Rate [ From Monitor] Pulse Rate [ Left Brachial] Pulse Rate [ Left Radial] Pulse Rate [ Right Radial] Respiratory 28 H 28 H 23 Rate Blood Pressure 112/61 118/56 129/58 O2 Sat by Pulse 100 100 100 Oximetry O2 Sat by Pulse Oximetry [ Assessment] 11/14/18 11/14/18 11/14/18 23:11 23:15 23:26 Temperature 97.6 F 97.5 F L Pulse Rate 96 H 95 H 94 H Pulse Rate [ From Monitor] Pulse Rate [ Left Brachial] Pulse Rate [ Left Radial] Pulse Rate [ Right Radial] Respiratory 26 H 25 H 25 H Rate Blood Pressure 129/58 100/45 106/49 O2 Sat by Pulse 99 100 100 Oximetry O2 Sat by Pulse Oximetry [ Assessment] 11/14/18 11/14/18 11/14/18 23:30 23:45 23:56 Temperature 97.6 F Pulse Rate 95 H 94 H 94 H Pulse Rate [ From Monitor] Pulse Rate [ Left Brachial] Pulse Rate [ Left Radial] Pulse Rate [ Right Radial] Respiratory 27 H 26 H 24 Rate Blood Pressure 106/49 99/50 103/49 O2 Sat by Pulse 100 100 100 Oximetry O2 Sat by Pulse Oximetry [ Assessment] 11/15/18 11/15/18 11/15/18 00:00 00:15 00:26 Temperature 97.6 F 97.4 F L Pulse Rate 93 H 93 H 93 H Pulse Rate [ 93 H From Monitor] Pulse Rate [ Left Brachial] Pulse Rate [ Left Radial] Pulse Rate [ Right Radial] Respiratory 26 H 27 H 25 H Rate Blood Pressure 99/50 103/49 104/49 O2 Sat by Pulse 100 100 100 Oximetry O2 Sat by Pulse Oximetry [ Assessment] 11/15/18 11/15/18 11/15/18 00:30 00:45 00:56 Temperature 97.4 F L Pulse Rate 92 H 92 H 94 H Pulse Rate [ From Monitor] Pulse Rate [ Left Brachial] Pulse Rate [ Left Radial] Pulse Rate [ Right Radial] Respiratory 26 H 25 H 28 H Rate Blood Pressure 104/49 105/48 108/52 O2 Sat by Pulse 100 100 100 Oximetry O2 Sat by Pulse Oximetry [ Assessment] 11/15/18 11/15/18 11/15/18 01:00 01:11 01:21 Temperature 97.5 F L Pulse Rate 94 H 99 H 91 H Pulse Rate [ From Monitor] Pulse Rate [ Left Brachial] Pulse Rate [ Left Radial] Pulse Rate [ Right Radial] Respiratory 21 17 21 Rate Blood Pressure 108/52 105/48 105/50 O2 Sat by Pulse 100 100 100 Oximetry O2 Sat by Pulse Oximetry [ Assessment] 11/15/18 11/15/18 11/15/18 01:23 01:30 01:36 Temperature 97.5 F L 97.6 F Pulse Rate 92 H 95 H 93 H Pulse Rate [ From Monitor] Pulse Rate [ Left Brachial] Pulse Rate [ Left Radial] Pulse Rate [ Right Radial] Respiratory 25 H 24 26 H Rate Blood Pressure 124/53 124/53 116/48 O2 Sat by Pulse 100 100 100 Oximetry O2 Sat by Pulse Oximetry [ Assessment] 11/15/18 11/15/18 11/15/18 01:41 01:51 02:00 Temperature 97.5 F L Pulse Rate 94 H 92 H 93 H Pulse Rate [ From Monitor] Pulse Rate [ Left Brachial] Pulse Rate [ Left Radial] Pulse Rate [ Right Radial] Respiratory 23 26 H 27 H Rate Blood Pressure 105/50 116/48 111/48 O2 Sat by Pulse 100 100 100 Oximetry O2 Sat by Pulse Oximetry [ Assessment] 11/15/18 11/15/18 11/15/18 02:11 02:21 02:30 Temperature Pulse Rate 92 H 93 H 91 H Pulse Rate [ From Monitor] Pulse Rate [ Left Brachial] Pulse Rate [ Left Radial] Pulse Rate [ Right Radial] Respiratory 19 27 H 27 H Rate Blood Pressure 116/48 106/49 105/53 O2 Sat by Pulse 100 100 100 Oximetry O2 Sat by Pulse Oximetry [ Assessment] 11/15/18 11/15/18 11/15/18 02:41 02:49 02:51 Temperature 97.8 F 97.8 F Pulse Rate 91 H 91 H Pulse Rate [ From Monitor] Pulse Rate [ Left Brachial] Pulse Rate [ Left Radial] Pulse Rate [ Right Radial] Respiratory 26 H 12 Rate Blood Pressure 105/53 103/63 O2 Sat by Pulse 100 100 Oximetry O2 Sat by Pulse Oximetry [ Assessment] 11/15/18 11/15/18 11/15/18 02:59 03:00 03:15 Temperature 97.8 F Pulse Rate 90 91 H 89 Pulse Rate [ From Monitor] Pulse Rate [ Left Brachial] Pulse Rate [ Left Radial] Pulse Rate [ Right Radial] Respiratory 16 12 23 Rate Blood Pressure 103/63 111/51 106/52 O2 Sat by Pulse 100 100 100 Oximetry O2 Sat by Pulse Oximetry [ Assessment] 11/15/18 11/15/18 11/15/18 03:21 03:31 03:38 Temperature 97.9 F 97.8 F Pulse Rate 90 91 H 90 Pulse Rate [ From Monitor] Pulse Rate [ Left Brachial] Pulse Rate [ Left Radial] Pulse Rate [ Right Radial] Respiratory 23 14 26 H Rate Blood Pressure 123/63 123/63 123/63 O2 Sat by Pulse 100 100 100 Oximetry O2 Sat by Pulse Oximetry [ Assessment] 11/15/18 11/15/18 11/15/18 03:45 04:00 04:15 Temperature 97.8 F Pulse Rate 89 89 89 Pulse Rate [ 89 From Monitor] Pulse Rate [ Left Brachial] Pulse Rate [ Left Radial] Pulse Rate [ Right Radial] Respiratory 23 23 20 Rate Blood Pressure 113/55 110/56 124/55 O2 Sat by Pulse 100 100 100 Oximetry O2 Sat by Pulse Oximetry [ Assessment] 11/15/18 11/15/18 11/15/18 04:31 04:44 04:45 Temperature Pulse Rate 92 H 88 89 Pulse Rate [ From Monitor] Pulse Rate [ Left Brachial] Pulse Rate [ Left Radial] Pulse Rate [ Right Radial] Respiratory 13 23 Rate Blood Pressure 124/55 107/53 107/53 O2 Sat by Pulse 100 100 Oximetry O2 Sat by Pulse Oximetry [ Assessment] 11/15/18 11/15/18 11/15/18 04:50 05:00 05:15 Temperature Pulse Rate 87 87 Pulse Rate [ From Monitor] Pulse Rate [ Left Brachial] Pulse Rate [ Left Radial] Pulse Rate [ Right Radial] Respiratory 18 22 Rate Blood Pressure 107/55 108/56 O2 Sat by Pulse 100 100 Oximetry O2 Sat by Pulse 100 Oximetry [ Assessment] 11/15/18 11/15/18 11/15/18 05:30 05:45 06:00 Temperature Pulse Rate 89 88 87 Pulse Rate [ From Monitor] Pulse Rate [ Left Brachial] Pulse Rate [ Left Radial] Pulse Rate [ Right Radial] Respiratory 12 17 17 Rate Blood Pressure 107/54 103/52 103/52 O2 Sat by Pulse 100 100 100 Oximetry O2 Sat by Pulse Oximetry [ Assessment] 11/15/18 11/15/18 11/15/18 07:57 08:00 08:51 Temperature 97.4 F L Pulse Rate 92 H Pulse Rate [ 90 From Monitor] Pulse Rate [ 90 Left Brachial] Pulse Rate [ 90 Left Radial] Pulse Rate [ 90 Right Radial] Respiratory 22 Rate Blood Pressure 115/56 O2 Sat by Pulse 98 100 Oximetry O2 Sat by Pulse Oximetry [ Assessment] 11/15/18 09:01 Temperature Pulse Rate 91 H Pulse Rate [ From Monitor] Pulse Rate [ Left Brachial] Pulse Rate [ Left Radial] Pulse Rate [ Right Radial] Respiratory Rate Blood Pressure 113/55 O2 Sat by Pulse 99 Oximetry O2 Sat by Pulse Oximetry [ Assessment] - General physical appearance no distress, no pain, other (unresponsive (no change)) - Neck other (trach is in place. No hematoma or drainage. ) - Respiratory other (equal air movement) - Abdomen soft, not distended, other (PEG in place. no drainage. TF currently running at 35cc/hr) - Labs 11/15/18 07:40 11/14/18 04:32
[2018-11-15] MEDS: PROAMATINE PO SCH ×3 (09:20→20:00)
[2018-11-15] MEDS: PHOSLO PO SCH ×3 (09:21→17:55)
[2018-11-15] MEDS: KEPPRA PO SCH ×2 (09:21→22:15)
[2018-11-15] MEDS: PEPCID PO SCH (09:22)
[2018-11-15] MEDS: SODIUM BICARBONATE PO SCH ×2 (09:23→22:15)
[2018-11-15] MEDS: Renal Caps PO SCH (09:26)
--- NOTE | 2018-11-15 09:35 | Progress Note ---
Assessment and Plan 1. ESRD: Continue hemodialysis three times a week. Patient was last dialyzed 2 days ago. HD today. 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 Clotted R arm AVF. 2. FEN: Hypokalemia, replete K as needed. Hypernatremia, improved. UF with HD as tolerated. 3. Respiratory failure: On vent. 4. Septic Shock: On Levophed. 5. Pneumonia. 6. Anemia: Epogen. Subjective Date of service: 11/15/18 Principal diagnosis: sepsis, acute resp, failure. Interval history: Patient was seen and examined at the bedside. Objective - Vital Signs Vital signs: Vital Signs - 12hr 11/14/18 11/14/18 11/14/18 21:40 21:45 22:00 Temperature Pulse Rate 97 H 100 H 99 H Pulse Rate [ From Monitor] Pulse Rate [ Left Brachial] Pulse Rate [ Left Radial] Pulse Rate [ Right Radial] Respiratory 25 H 28 H 27 H Rate Blood Pressure 104/51 91/51 85/48 O2 Sat by Pulse 98 99 99 Oximetry O2 Sat by Pulse Oximetry [ Assessment] 11/14/18 11/14/18 11/14/18 22:15 22:30 22:45 Temperature Pulse Rate 99 H 96 H 95 H Pulse Rate [ From Monitor] Pulse Rate [ Left Brachial] Pulse Rate [ Left Radial] Pulse Rate [ Right Radial] Respiratory 29 H 28 H 28 H Rate Blood Pressure 105/57 112/61 118/56 O2 Sat by Pulse 100 100 Oximetry O2 Sat by Pulse Oximetry [ Assessment] 11/14/18 11/14/18 11/14/18 23:00 23:11 23:15 Temperature 97.6 F Pulse Rate 96 H 96 H 95 H Pulse Rate [ From Monitor] Pulse Rate [ Left Brachial] Pulse Rate [ Left Radial] Pulse Rate [ Right Radial] Respiratory 23 26 H 25 H Rate Blood Pressure 129/58 129/58 100/45 O2 Sat by Pulse 100 99 100 Oximetry O2 Sat by Pulse Oximetry [ Assessment] 11/14/18 11/14/18 11/14/18 23:26 23:30 23:45 Temperature 97.5 F L Pulse Rate 94 H 95 H 94 H Pulse Rate [ From Monitor] Pulse Rate [ Left Brachial] Pulse Rate [ Left Radial] Pulse Rate [ Right Radial] Respiratory 25 H 27 H 26 H Rate Blood Pressure 106/49 106/49 99/50 O2 Sat by Pulse 100 100 100 Oximetry O2 Sat by Pulse Oximetry [ Assessment] 11/14/18 11/15/18 11/15/18 23:56 00:00 00:15 Temperature 97.6 F 97.6 F Pulse Rate 94 H 93 H 93 H Pulse Rate [ 93 H From Monitor] Pulse Rate [ Left Brachial] Pulse Rate [ Left Radial] Pulse Rate [ Right Radial] Respiratory 24 26 H 27 H Rate Blood Pressure 103/49 99/50 103/49 O2 Sat by Pulse 100 100 100 Oximetry O2 Sat by Pulse Oximetry [ Assessment] 11/15/18 11/15/18 11/15/18 00:26 00:30 00:45 Temperature 97.4 F L Pulse Rate 93 H 92 H 92 H Pulse Rate [ From Monitor] Pulse Rate [ Left Brachial] Pulse Rate [ Left Radial] Pulse Rate [ Right Radial] Respiratory 25 H 26 H 25 H Rate Blood Pressure 104/49 104/49 105/48 O2 Sat by Pulse 100 100 100 Oximetry O2 Sat by Pulse Oximetry [ Assessment] 11/15/18 11/15/18 11/15/18 00:56 01:00 01:11 Temperature 97.4 F L Pulse Rate 94 H 94 H 99 H Pulse Rate [ From Monitor] Pulse Rate [ Left Brachial] Pulse Rate [ Left Radial] Pulse Rate [ Right Radial] Respiratory 28 H 21 17 Rate Blood Pressure 108/52 108/52 105/48 O2 Sat by Pulse 100 100 100 Oximetry O2 Sat by Pulse Oximetry [ Assessment] 11/15/18 11/15/18 11/15/18 01:21 01:23 01:30 Temperature 97.5 F L 97.5 F L Pulse Rate 91 H 92 H 95 H Pulse Rate [ From Monitor] Pulse Rate [ Left Brachial] Pulse Rate [ Left Radial] Pulse Rate [ Right Radial] Respiratory 21 25 H 24 Rate Blood Pressure 105/50 124/53 124/53 O2 Sat by Pulse 100 100 100 Oximetry O2 Sat by Pulse Oximetry [ Assessment] 11/15/18 11/15/18 11/15/18 01:36 01:41 01:51 Temperature 97.6 F 97.5 F L Pulse Rate 93 H 94 H 92 H Pulse Rate [ From Monitor] Pulse Rate [ Left Brachial] Pulse Rate [ Left Radial] Pulse Rate [ Right Radial] Respiratory 26 H 23 26 H Rate Blood Pressure 116/48 105/50 116/48 O2 Sat by Pulse 100 100 100 Oximetry O2 Sat by Pulse Oximetry [ Assessment] 11/15/18 11/15/18 11/15/18 02:00 02:11 02:21 Temperature Pulse Rate 93 H 92 H 93 H Pulse Rate [ From Monitor] Pulse Rate [ Left Brachial] Pulse Rate [ Left Radial] Pulse Rate [ Right Radial] Respiratory 27 H 19 27 H Rate Blood Pressure 111/48 116/48 106/49 O2 Sat by Pulse 100 100 100 Oximetry O2 Sat by Pulse Oximetry [ Assessment] 11/15/18 11/15/18 11/15/18 02:30 02:41 02:49 Temperature 97.8 F Pulse Rate 91 H 91 H Pulse Rate [ From Monitor] Pulse Rate [ Left Brachial] Pulse Rate [ Left Radial] Pulse Rate [ Right Radial] Respiratory 27 H 26 H Rate Blood Pressure 105/53 105/53 O2 Sat by Pulse 100 100 Oximetry O2 Sat by Pulse Oximetry [ Assessment] 11/15/18 11/15/18 11/15/18 02:51 02:59 03:00 Temperature 97.8 F 97.8 F Pulse Rate 91 H 90 91 H Pulse Rate [ From Monitor] Pulse Rate [ Left Brachial] Pulse Rate [ Left Radial] Pulse Rate [ Right Radial] Respiratory 12 16 12 Rate Blood Pressure 103/63 103/63 111/51 O2 Sat by Pulse 100 100 100 Oximetry O2 Sat by Pulse Oximetry [ Assessment] 11/15/18 11/15/18 11/15/18 03:15 03:21 03:31 Temperature 97.9 F Pulse Rate 89 90 91 H Pulse Rate [ From Monitor] Pulse Rate [ Left Brachial] Pulse Rate [ Left Radial] Pulse Rate [ Right Radial] Respiratory 23 23 14 Rate Blood Pressure 106/52 123/63 123/63 O2 Sat by Pulse 100 100 100 Oximetry O2 Sat by Pulse Oximetry [ Assessment] 11/15/18 11/15/18 11/15/18 03:38 03:45 04:00 Temperature 97.8 F 97.8 F Pulse Rate 90 89 89 Pulse Rate [ 89 From Monitor] Pulse Rate [ Left Brachial] Pulse Rate [ Left Radial] Pulse Rate [ Right Radial] Respiratory 26 H 23 23 Rate Blood Pressure 123/63 113/55 110/56 O2 Sat by Pulse 100 100 100 Oximetry O2 Sat by Pulse Oximetry [ Assessment] 11/15/18 11/15/1819 04:15 04:31 04:44 Temperature Pulse Rate 89 92 H 88 Pulse Rate [ From Monitor] Pulse Rate [ Left Brachial] Pulse Rate [ Left Radial] Pulse Rate [ Right Radial] Respiratory 20 13 Rate Blood Pressure 124/55 124/55 107/53 O2 Sat by Pulse 100 100 Oximetry O2 Sat by Pulse Oximetry [ Assessment] 11/15/18 11/15/18 11/15/18 04:45 04:50 05:00 Temperature Pulse Rate 89 87 Pulse Rate [ From Monitor] Pulse Rate [ Left Brachial] Pulse Rate [ Left Radial] Pulse Rate [ Right Radial] Respiratory 23 18 Rate Blood Pressure 107/53 107/55 O2 Sat by Pulse 100 100 Oximetry O2 Sat by Pulse 100 Oximetry [ Assessment] 11/15/18 11/15/18 11/15/18 05:15 05:30 05:45 Temperature Pulse Rate 87 89 88 Pulse Rate [ From Monitor] Pulse Rate [ Left Brachial] Pulse Rate [ Left Radial] Pulse Rate [ Right Radial] Respiratory 22 12 17 Rate Blood Pressure 108/56 107/54 103/52 O2 Sat by Pulse 100 100 100 Oximetry O2 Sat by Pulse Oximetry [ Assessment] 11/15/18 11/15/18 11/15/18 06:00 07:57 08:00 Temperature 97.4 F L Pulse Rate 87 90 Pulse Rate [ 90 From Monitor] Pulse Rate [ 90 Left Brachial] Pulse Rate [ 90 Left Radial] Pulse Rate [ 90 Right Radial] Respiratory 17 22 Rate Blood Pressure 103/52 O2 Sat by Pulse 100 98 Oximetry O2 Sat by Pulse Oximetry [ Assessment] 11/15/18 11/15/18 08:51 09:01 Temperature Pulse Rate 92 H 91 H Pulse Rate [ From Monitor] Pulse Rate [ Left Brachial] Pulse Rate [ Left Radial] Pulse Rate [ Right Radial] Respiratory Rate Blood Pressure 115/56 113/55 O2 Sat by Pulse 100 99 Oximetry O2 Sat by Pulse Oximetry [ Assessment] - General Appearance General appearance: well-developed, appears stated age, other (Trached, on vent) EENT: ATNC Neck: other (Trached) Respiratory: Present: Clear to Ascultation Cardiology: regular, S1S2, no murmurs Gastrointestinal: normoactive bowel sounds, no tenderness, other (PEG tube and suprapubic catheter noted) Neurologic: obtunded Musculoskeletal: other (extremity edema noted, L groin dialysis catheter) - Lab 11/15/18 07:40 11/14/18 04:32 Most recent lab results Calcium 8.3 mg/dL (8.4-10.2) L 11/14/18 04:32 Phosphorus 3.10 mg/dL (2.5-4.5) 11/05/18 06:36 Medications & Allergies - Medications Allergies/Adverse Reactions: Allergies No Known Allergies Allergy (Verified 01/18/18 20:10) Home Medications: Home Medications Medication Instructions Recorded Confirmed Last Taken Type Acetaminophen [Acetaminophen TAB] 650 mg PO Q4H PRN 03/12/18 10/31/18 Unknown History Calcium Acetate [Phoslo] 667 mg PO TID 03/12/18 10/31/18 05/13/18 17:00 History Carvedilol [Coreg] 6.25 mg PO BID 03/12/18 10/31/18 05/13/18 09:00 History Ergocalciferol 50,000 unit PO QWEEK 03/12/18 10/31/18 05/11/18 09:00 History Apixaban [Eliquis] 2.5 mg PO BID tablet 08/21/18 10/31/18 Unknown Rx Megestrol [Megace] 400 mg PO QDAY 10/31/18 10/31/18 Unknown History Mirtazapine [Remeron] 15 mg PO QHS 10/31/18 10/31/18 Unknown History Elaine-José Rx Tablet 1 tab PO QDAY 10/31/18 10/31/18 Unknown History Sodium Bicarbonate 650 mg PO BID 10/31/18 10/31/18 Unknown History traMADol [Ultram 50 MG tab] 25 mg PO Q12H PRN 10/31/18 10/31/18 Unknown History Active Medications: Generic Name Dose Route Start Last Admin Trade Name Freq PRN Reason Stop Dose Admin Acetaminophen 650 mg 11/02/18 09:25 11/09/18 18:46 Tylenol FEEDTUBE 650 mg Q6H PRN Administration Fever >101 Lipase/Protease/Amylase 1 each 11/01/18 10:04 Pancreyobani Palomo 10,500 Unit FEEDTUBE PRN PRN For Clogged Feeding Tube Calcium Acetate 667 mg 11/13/18 08:00 11/15/18 09:21 Phoslo PO 667 mg TIDWM KIRSTEN Administration Epoetin [place] 20,000 unit 11/05/18 10:21 11/12/18 17:30 Procrit SUB-Q 20,000 unit ALEJO PRN Administration hemodialysis Ergocalciferol 50,000 unit 11/16/18 10:00 Vitamin D2 PO Fr KIRSTEN Famotidine 20 mg 11/01/18 10:00 11/15/18 09:22 Pepcid PO 20 mg DAILY KIRSTEN Administration Heparin Sodium (Porcine) 5,000 unit 10/29/18 22:00 11/15/18 05:48 Heparin SUB-Q 5,000 unit Q8HR KIRSTEN Administration Norepinephrine 4 mg in 250 mls @ 7.5 mls/hr 10/30/18 01:00 11/15/18 01:45 Levophed Drip 4 Mg/Ns 250 Ml IV 0 mcg/min TITR KIRSTEN 0 mls/hr Titration Protocol 2 MCG/MIN Sodium Chloride 100 mls @ 999 mls/hr 11/09/18 08:48 Nacl 0.9% IV ALEJO PRN Hypotension Sodium Chloride 100 mls @ 999 mls/hr 11/12/18 08:43 Nacl 0.9% IV ALEJO PRN Hypotension Sodium Chloride 100 mls @ 999 mls/hr 11/14/18 08:49 Nacl 0.9% IV ALEJO PRN Hypotension Sodium Chloride 500 mls @ 0 mls/hr 11/14/18 19:11 11/14/18 23:00 Nacl 0.9% 500 Ml IV 11/15/18 19:10 40 mls/hr ONCE NR Administration As Directed Insulin Human Lispro 0 unit 10/30/18 10:00 11/15/18 05:48 Humalog SUB-Q 3 unit Q6HR KIRSTEN Administration Protocol Levetiracetam 500 mg 11/07/18 10:00 11/15/18 09:21 Keppra PO 500 mg BID KIRSTEN Administration Midodrine 10 mg 11/13/18 11:00 11/15/18 09:20 Proamatine PO 10 mg TID KIRSTEN Administration Multivit/Ca Carb/B Cmplx/FA/Prenat 1 cap 11/13/18 10:00 11/15/18 09:26 Renal Caps PO 1 cap QDAY KIRSTEN Administration Simple Syrup 15 ml 11/01/18 10:04 11/06/18 00:09 Simple Syrup FEEDTUBE 15 ml PRN PRN Administration Hypoglycemia Simple Syrup 30 ml 11/01/18 10:04 Simple Syrup FEEDTUBE PRN PRN Hypoglycemia Sodium Bicarbonate 325 mg 11/01/18 10:04 Sodium Bicarbonate FEEDTUBE PRN PRN For Clogged Feeding Tube Sodium Bicarbonate 650 mg 11/13/18 10:00 11/15/18 09:23 Sodium Bicarbonate PO 650 mg BID KIRSTEN Administration
--- NOTE | 2018-11-15 10:19 | Progress Note ---
Assessment and Plan Cultures: 10/29/2018 Blood culture: No growth 10/30/2018 sputum culture: MRSA 10/30/2018 urine culture: Mixed growth 11/02/2018 blood culture: no growth 11/09/2018 blood culture: no growth A/P: 73-year-old male with prostate cancer, ESRD on hemodialysis, diabetes mellitus, peripheral vascular disease status post right-sided AKA is admitted to the hospital as a transfer from the custodial due to altered mental status. Apparently, the patient had been refusing dialysis for a week prior to admission. Now with: 1) Severe sepsis with shock s/p PEA arrest: off pressors since 11/14/2018, mechanical ventilation. 2) Right-sided pneumonia with acute hypoxic respiratory failure: On mechanical ventilation. Chest x-ray showing right-sided infiltrate. Sputum culture growing MRSA. Completed 14 days of IV Vancomycin 11/13/2018. 3) Possible UTI: Patient with indwelling suprapubic catheter. Also with ESRD on hemodialysis. This makes UA difficult to interpret for infection since quite likely to have urinary sediment. 4) ESRD on hemodialysis: Noncompliant with HD prior to admission. Renally dose abx. 5) Peripheral vascular disease: Status post right BKA, left TMA. 6) Right gluteal decubitus ulcer with eschar: continue wound care. 7) R sphenoid sinusitis noted on CT: Completed 5 days of Cefepime. Recs: completed 14 days of IV Vancomycin and 5 days of IV Cefepime on 11/13/2018 has R femoral trialysis cath, at risk of infection, consider moving to another site if feasible Overall extremely poor prognosis, recommend comfort/palliative care ID will sign off at this time. Please call back with questions or new concerns. Aaron Regan MD [facility] C: [phone] O: [phone] F: [phone] Subjective Date of service: 11/15/18 Principal diagnosis: sepsis, acute resp, failure. Interval history: Remains off pressors. No fever. Unresponsive. On the vent. Objective - Exam Narrative Exam: Physical Exam: Constitutional: unresponsive. on vent. Head, Ears, Nose: Normocephalic, atraumatic. External ears, nose normal. Eyes: Conjunctivae/corneas clear. No icterus. No ptosis. Neck: trach + Cardiovascular: S1, S2 normal. Respiratory: Good air entry, clear to auscultation bilaterally GI: Soft, bowel sounds +. PEG + Suprapubic catheter + Musculoskeletal: Right AKA, left TMA stumps healed. Right gluteal region with eschar. Left femoral trialysis cath +. Edema + Skin: No rash or abscess Hem/Lymphatic: No palpable cervical or supraclavicular nodes. No lymphangitis Psych: no agitation Neurological: unresponsive, intubated, on vent. - Constitutional Vitals: Vital Signs Temp Pulse Resp BP Pulse Ox 97.4 F L 91 H 22 113/55 99 11/15/18 08:00 11/15/18 09:01 11/15/18 07:57 11/15/18 09:01 11/15/18 09:01 Temperature -Last 24 Hours Temperature 97.4 F Temperature 97.8 F Temperature 97.8 F Temperature 97.9 F Temperature 97.8 F Temperature 97.8 F Temperature 97.8 F Temperature 97.5 F Temperature 97.6 F Temperature 97.5 F Temperature 97.5 F Temperature 97.4 F Temperature 97.4 F Temperature 97.6 F Temperature 97.6 F Temperature 97.5 F Temperature 97.6 F Temperature 98.9 F Temperature 97.8 F Temperature 97.8 F Temperature 97.7 F Temperature 97.8 F Temperature 97.7 F - Labs CBC & Chem 7: 11/15/18 07:40 11/14/18 04:32 Labs: Abnormal lab results 11/14/18 11/14/18 11/14/18 Range/Units 12:15 20:00 23:26 RBC (3.65-5.03) M/mm3 Hgb (11.8-15.2) gm/dl Hct (35.5-45.6) % MCV (84-94) fl POC Glucose 204 H 147 H (70-105) Crossmatch See Detail 11/15/18 11/15/18 Range/Units 05:18 07:40 RBC 2.59 L (3.65-5.03) M/mm3 Hgb 8.3 L (11.8-15.2) gm/dl Hct 25.2 L (35.5-45.6) % MCV 97 H (84-94) fl POC Glucose 154 H (70-105) Crossmatch - Imaging and cardiology Chest x-ray: report reviewed, image reviewed (b/l pleural effusions.)
--- NOTE | 2018-11-15 11:52 | Progress Note ---
Assessment and Plan s/p PEA arrest Severe sepsis with septic shock Fevers, Tracheal aspirate positive for MRSA Acute hypoxic respiratory failure on MVS Acute encephalopathy( toxic, metabolic) Severe protein calorie malnutrition Hyperkalemia( resolved) ESRD on HD, clotted graft femoral HD catheter Hyperosmolar hyperglycemic state( improving) Hypotension, multifactorial, ?sepsis, dehydration Hypernatremia, resolved PVD s/p right BKA Prostate cancer s/p suprapubic catheter - continue to wean vasopressors for target MAP > 65 mmHg - Continue daily SBT's as tolerated (on PSV 07/05 now) - reduced free water flushes re: hyponatremia no- continue and complete AB's per ID rec's - follow EEG report - continue Lung protective strategies - VAP bundle addressed. - continue to wean supplemental oxygen, wean for O2 sats > 90% - Daily SATs as tolerated - continue VTE prophylaxis( heparin) - continue Stress ulcer prophylaxis( Famotidine) - continue high dose sliding scale insulin with accuchecks - Tube feedings with aspiration precautions - Glycemic control, target blood glucose of 140-180mg/dL - Continue wound care by wound care team - Supportive HD/UF for toxin and volume control - prn gentle volume resuscitation re: renal falure - ABG and CXR prn at this point - Serial BMP to monitor sodium levels - Sputum positive for MRSA, CONDITION: CRITICAL PROGNOSIS: GUARDED CODE STATUS: DNAR DNAR per daughters wishes, yesterday bith signed. Goals of care to be determined The high probability of a clinically significant, sudden or life-threatening deterioration of the [cardiac, neurology] system(s) required my full and direct attention, intervention and personal management. The aggregate critical care time was [34] minutes without overlap. Time includes spent on; [x] Data Review and interpretation [x] Patient assessment and monitoring of vital signs [x] Documentation [x] Medication orders and management Subjective Date of service: 11/15/18 Principal diagnosis: Acute hypoxemic resp failure; Severe sepsis with shock;acute encephaloapthy Interval history: Patient is seen today for: Acute hypoxemic respiratory failure on MVS; Severe sepsis with septic shock; acute encephaloapthy Seen and examined at bedside; 24hour events reviewed; nursing and respiratory care staff consulted; no adverse overnight events reported to me; resting peacefully in bed; tentatively to transfer to LTAC tomorrow; AMS is persistent; BP's labile and levophed just resumed at 2 mics/min; no emesis or overt aspiration; s/p tracheostomy Objective Vital Signs - 12hr 11/14/18 11/15/18 11/15/18 23:56 00:00 00:15 Temperature 97.6 F 97.6 F Pulse Rate 94 H 93 H 93 H Pulse Rate [ 93 H From Monitor] Pulse Rate [ Left Brachial] Pulse Rate [ Left Radial] Pulse Rate [ Right Radial] Respiratory 24 26 H 27 H Rate Blood Pressure 103/49 99/50 103/49 O2 Sat by Pulse 100 100 100 Oximetry O2 Sat by Pulse Oximetry [ Assessment] 11/15/18 11/15/18 11/15/18 00:26 00:30 00:45 Temperature 97.4 F L Pulse Rate 93 H 92 H 92 H Pulse Rate [ From Monitor] Pulse Rate [ Left Brachial] Pulse Rate [ Left Radial] Pulse Rate [ Right Radial] Respiratory 25 H 26 H 25 H Rate Blood Pressure 104/49 104/49 105/48 O2 Sat by Pulse 100 100 100 Oximetry O2 Sat by Pulse Oximetry [ Assessment] 11/15/18 11/15/18 11/15/18 00:56 01:00 01:11 Temperature 97.4 F L Pulse Rate 94 H 94 H 99 H Pulse Rate [ From Monitor] Pulse Rate [ Left Brachial] Pulse Rate [ Left Radial] Pulse Rate [ Right Radial] Respiratory 28 H 21 17 Rate Blood Pressure 108/52 108/52 105/48 O2 Sat by Pulse 100 100 100 Oximetry O2 Sat by Pulse Oximetry [ Assessment] 11/15/18 11/15/18 11/15/18 01:21 01:23 01:30 Temperature 97.5 F L 97.5 F L Pulse Rate 91 H 92 H 95 H Pulse Rate [ From Monitor] Pulse Rate [ Left Brachial] Pulse Rate [ Left Radial] Pulse Rate [ Right Radial] Respiratory 21 25 H 24 Rate Blood Pressure 105/50 124/53 124/53 O2 Sat by Pulse 100 100 100 Oximetry O2 Sat by Pulse Oximetry [ Assessment] 11/15/18 11/15/18 11/15/18 01:36 01:41 01:51 Temperature 97.6 F 97.5 F L Pulse Rate 93 H 94 H 92 H Pulse Rate [ From Monitor] Pulse Rate [ Left Brachial] Pulse Rate [ Left Radial] Pulse Rate [ Right Radial] Respiratory 26 H 23 26 H Rate Blood Pressure 116/48 105/50 116/48 O2 Sat by Pulse 100 100 100 Oximetry O2 Sat by Pulse Oximetry [ Assessment] 11/15/18 11/15/18 11/15/18 02:00 02:11 02:21 Temperature Pulse Rate 93 H 92 H 93 H Pulse Rate [ From Monitor] Pulse Rate [ Left Brachial] Pulse Rate [ Left Radial] Pulse Rate [ Right Radial] Respiratory 27 H 19 27 H Rate Blood Pressure 111/48 116/48 106/49 O2 Sat by Pulse 100 100 100 Oximetry O2 Sat by Pulse Oximetry [ Assessment] 11/15/18 11/15/18 11/15/18 02:30 02:41 02:49 Temperature 97.8 F Pulse Rate 91 H 91 H Pulse Rate [ From Monitor] Pulse Rate [ Left Brachial] Pulse Rate [ Left Radial] Pulse Rate [ Right Radial] Respiratory 27 H 26 H Rate Blood Pressure 105/53 105/53 O2 Sat by Pulse 100 100 Oximetry O2 Sat by Pulse Oximetry [ Assessment] 11/15/18 11/15/18 11/15/18 02:51 02:59 03:00 Temperature 97.8 F 97.8 F Pulse Rate 91 H 90 91 H Pulse Rate [ From Monitor] Pulse Rate [ Left Brachial] Pulse Rate [ Left Radial] Pulse Rate [ Right Radial] Respiratory 12 16 12 Rate Blood Pressure 103/63 103/63 111/51 O2 Sat by Pulse 100 100 100 Oximetry O2 Sat by Pulse Oximetry [ Assessment] 11/15/18 11/15/18 11/15/18 03:15 03:21 03:31 Temperature 97.9 F Pulse Rate 89 90 91 H Pulse Rate [ From Monitor] Pulse Rate [ Left Brachial] Pulse Rate [ Left Radial] Pulse Rate [ Right Radial] Respiratory 23 23 14 Rate Blood Pressure 106/52 123/63 123/63 O2 Sat by Pulse 100 100 100 Oximetry O2 Sat by Pulse Oximetry [ Assessment] 11/15/18 11/15/18 11/15/18 03:38 03:45 04:00 Temperature 97.8 F 97.8 F Pulse Rate 90 89 89 Pulse Rate [ 89 From Monitor] Pulse Rate [ Left Brachial] Pulse Rate [ Left Radial] Pulse Rate [ Right Radial] Respiratory 26 H 23 23 Rate Blood Pressure 123/63 113/55 110/56 O2 Sat by Pulse 100 100 100 Oximetry O2 Sat by Pulse Oximetry [ Assessment] 11/15/18 11/15/18 11/15/18 04:15 04:31 04:44 Temperature Pulse Rate 89 92 H 88 Pulse Rate [ From Monitor] Pulse Rate [ Left Brachial] Pulse Rate [ Left Radial] Pulse Rate [ Right Radial] Respiratory 20 13 Rate Blood Pressure 124/55 124/55 107/53 O2 Sat by Pulse 100 100 Oximetry O2 Sat by Pulse Oximetry [ Assessment] 11/15/18 11/15/18 11/15/18 04:45 04:50 05:00 Temperature Pulse Rate 89 87 Pulse Rate [ From Monitor] Pulse Rate [ Left Brachial] Pulse Rate [ Left Radial] Pulse Rate [ Right Radial] Respiratory 23 18 Rate Blood Pressure 107/53 107/55 O2 Sat by Pulse 100 100 Oximetry O2 Sat by Pulse 100 Oximetry [ Assessment] 11/15/18 11/15/18 11/15/18 05:15 05:30 05:45 Temperature Pulse Rate 87 89 88 Pulse Rate [ From Monitor] Pulse Rate [ Left Brachial] Pulse Rate [ Left Radial] Pulse Rate [ Right Radial] Respiratory 22 12 17 Rate Blood Pressure 108/56 107/54 103/52 O2 Sat by Pulse 100 100 100 Oximetry O2 Sat by Pulse Oximetry [ Assessment] 11/15/18 11/15/18 11/15/18 06:00 07:57 08:00 Temperature 97.4 F L Pulse Rate 87 90 Pulse Rate [ 90 From Monitor] Pulse Rate [ 90 Left Brachial] Pulse Rate [ 90 Left Radial] Pulse Rate [ 90 Right Radial] Respiratory 17 22 Rate Blood Pressure 103/52 O2 Sat by Pulse 100 98 Oximetry O2 Sat by Pulse Oximetry [ Assessment] 11/15/18 11/15/18 08:51 09:01 Temperature Pulse Rate 92 H 91 H Pulse Rate [ From Monitor] Pulse Rate [ Left Brachial] Pulse Rate [ Left Radial] Pulse Rate [ Right Radial] Respiratory Rate Blood Pressure 115/56 113/55 O2 Sat by Pulse 100 99 Oximetry O2 Sat by Pulse Oximetry [ Assessment] Constitutional: appears uncomfortable, other (elderly looking AAM, normocephalic and with mildly increased resp effort at rest) Eyes: non-icteric ENT: oropharynx moist, other (ETT 23 cm CATHLEEN) Neck: supple, no lymphadenopathy, no JVD, other (no thyromegaly) Effort: mildly labored Ascultation: Bilateral: diminished breath sounds, rhonchi Percussion: Bilateral: not dull Cardiovascular: regular rate and rhythm, murmur noted (systolic) Gastrointestinal: normoactive bowel sounds, soft, non-tender, non-distended Integumentary: rash Extremities: no cyanosis, no edema, pulses normal, no ischemia or petechiae Neurologic: unable to assess Psychiatric: other (unable to assess) CBC and BMP: 11/16/18 05:45 11/16/18 05:45 ABG, PT/INR, D-dimer: ABG POC ABG pH 7.403 (7.35-7.45) 11/12/18 04:35 POC ABG pCO2 31.1 (35-45) L 11/12/18 04:35 POC ABG pO2 82 (80-105) 11/12/18 04:35 POC ABG HCO3 19.4 (22-26 mml/L) 11/12/18 04:35 POC ABG Total CO2 20 (23-27mmol/L) 11/12/18 04:35 POC ABG O2 Sat 96 11/12/18 04:35 PT/INR, D-dimer PT 16.9 Sec. (12.2-14.9) H 11/14/18 04:32 INR 1.29 (0.87-1.13) H 11/14/18 04:32 Abnormal lab findings: Abnormal Labs 10/29/18 10/29/18 10/29/18 17:13 17:13 17:13 RBC 3.62 L Hgb Hct MCV 102 H MCH 34 H RDW 19.6 H Plt Count Lymph % (Auto) [place] % (Auto) 7.8 H Lymph # Seg Neutrophils % 71.2 H Seg Neuts % (Manual) Lymphocytes % (Manual) Monocytes % (Manual) Seg Neutrophils # Lymphocytes # (Manual) PT INR POC ABG pH POC ABG pCO2 POC ABG pO2 Sodium 164 H* Potassium 6.2 H* Chloride 127.5 H Carbon Dioxide BUN 178 H Creatinine 4.2 H Glucose 131 H POC Glucose Calcium 10.7 H AST C-Reactive Protein Total Protein 9.5 H Albumin 2.6 L TSH 5.310 H Urine pH Urine WBC (Auto) Vancomycin Trough Crossmatch 10/29/18 10/30/18 10/30/18 23:57 00:06 04:35 RBC Hgb Hct MCV MCH RDW Plt Count Lymph % (Auto) [place] % (Auto) Lymph # Seg Neutrophils % Seg Neuts % (Manual) Lymphocytes % (Manual) Monocytes % (Manual) Seg Neutrophils # Lymphocytes # (Manual) PT INR POC ABG pH 7.488 H POC ABG pCO2 32.1 L 34.9 L POC ABG pO2 144 H Sodium Potassium Chloride Carbon Dioxide BUN Creatinine Glucose POC Glucose 131 H Calcium AST C-Reactive Protein Total Protein Albumin TSH Urine pH Urine WBC (Auto) Vancomycin Trough Crossmatch 10/30/18 10/30/18 10/30/18 05:13 08:54 08:54 RBC 3.56 L Hgb 11.7 L Hct MCV 102 H MCH 33 H RDW 19.2 H Plt Count Lymph % (Auto) [place] % (Auto) Lymph # Seg Neutrophils % Seg Neuts % (Manual) Lymphocytes % (Manual) Monocytes % (Manual) Seg Neutrophils # Lymphocytes # (Manual) PT INR POC ABG pH POC ABG pCO2 POC ABG pO2 Sodium Potassium Chloride Carbon Dioxide BUN Creatinine Glucose POC Glucose 316 H Calcium AST C-Reactive Protein 5.20 H Total Protein Albumin 2.2 L TSH Urine pH Urine WBC (Auto) Vancomycin Trough Crossmatch 10/30/18 10/30/18 10/30/18 08:59 12:03 18:30 RBC Hgb Hct MCV MCH RDW Plt Count Lymph % (Auto) [place] % (Auto) Lymph # Seg Neutrophils % Seg Neuts % (Manual) Lymphocytes % (Manual) Monocytes % (Manual) Seg Neutrophils # Lymphocytes # (Manual) PT INR POC ABG pH POC ABG pCO2 POC ABG pO2 Sodium 146 H D Potassium Chloride Carbon Dioxide BUN 86 H Creatinine 2.7 H Glucose 262 H POC Glucose 232 H 57 L Calcium AST C-Reactive Protein Total Protein Albumin TSH Urine pH Urine WBC (Auto) Vancomycin Trough Crossmatch 10/30/18 10/30/18 10/30/18 18:39 19:07 19:42 RBC Hgb Hct MCV MCH RDW Plt Count Lymph % (Auto) [place] % (Auto) Lymph # Seg Neutrophils % Seg Neuts % (Manual) Lymphocytes % (Manual) Monocytes % (Manual) Seg Neutrophils # Lymphocytes # (Manual) PT INR POC ABG pH POC ABG pCO2 POC ABG pO2 Sodium Potassium Chloride Carbon Dioxide BUN Creatinine Glucose POC Glucose < 40 L 51 L Calcium AST C-Reactive Protein Total Protein Albumin TSH Urine pH 8.0 H Urine WBC (Auto) > 182.0 H Vancomycin Trough Crossmatch 10/30/18 10/30/18 10/30/18 19:51 23:13 23:20 RBC Hgb Hct MCV MCH RDW Plt Count Lymph % (Auto) [place] % (Auto) Lymph # Seg Neutrophils % Seg Neuts % (Manual) Lymphocytes % (Manual) Monocytes % (Manual) Seg Neutrophils # Lymphocytes # (Manual) PT INR POC ABG pH POC ABG pCO2 POC ABG pO2 Sodium Potassium Chloride 108.5 H Carbon Dioxide 21 L BUN 96 H Creatinine 3.0 H Glucose 865 H* 150 H POC Glucose 152 H Calcium AST C-Reactive Protein Total Protein Albumin TSH Urine pH Urine WBC (Auto) Vancomycin Trough Crossmatch 10/30/18 10/31/18 10/31/18 23:40 04:43 04:43 RBC Hgb Hct MCV 100 H MCH 33 H RDW 18.1 H Plt Count Lymph % (Auto) [place] % (Auto) Lymph # Seg Neutrophils % Seg Neuts % (Manual) Lymphocytes % (Manual) 4.0 L Monocytes % (Manual) Seg Neutrophils # Lymphocytes # (Manual) 0.3 L PT INR POC ABG pH POC ABG pCO2 POC ABG pO2 Sodium Potassium Chloride Carbon Dioxide 19 L BUN 98 H Creatinine 3.2 H Glucose 184 H POC Glucose 145 H Calcium AST C-Reactive Protein Total Protein Albumin TSH Urine pH Urine WBC (Auto) Vancomycin Trough Crossmatch 10/31/18 10/31/18 10/31/18 05:44 11:44 13:19 RBC Hgb Hct MCV MCH RDW Plt Count Lymph % (Auto) [place] % (Auto) Lymph # Seg Neutrophils % Seg Neuts % (Manual) Lymphocytes % (Manual) Monocytes % (Manual) Seg Neutrophils # Lymphocytes # (Manual) PT INR POC ABG pH POC ABG pCO2 POC ABG pO2 64 L Sodium Potassium Chloride Carbon Dioxide BUN Creatinine Glucose POC Glucose 142 H 196 H Calcium AST C-Reactive Protein Total Protein Albumin TSH Urine pH Urine WBC (Auto) Vancomycin Trough Crossmatch 10/31/18 11/01/18 11/01/18 17:36 04:07 04:07 RBC 3.40 L Hgb 11.2 L Hct 33.6 L MCV 99 H MCH 33 H RDW 17.5 H Plt Count Lymph % (Auto) [place] % (Auto) Lymph # Seg Neutrophils % Seg Neuts % (Manual) 80.0 H Lymphocytes % (Manual) 4.0 L Monocytes % (Manual) Seg Neutrophils # Lymphocytes # (Manual) 0.3 L PT INR POC ABG pH POC ABG pCO2 POC ABG pO2 Sodium Potassium Chloride Carbon Dioxide 19 L BUN 108 H Creatinine 3.9 H Glucose 138 H POC Glucose 174 H Calcium 7.9 L AST C-Reactive Protein Total Protein Albumin TSH Urine pH Urine WBC (Auto) Vancomycin Trough Crossmatch 11/01/18 11/01/18 11/01/18 05:24 05:36 13:09 RBC Hgb Hct MCV MCH RDW Plt Count Lymph % (Auto) [place] % (Auto) Lymph # Seg Neutrophils % Seg Neuts % (Manual) Lymphocytes % (Manual) Monocytes % (Manual) Seg Neutrophils # Lymphocytes # (Manual) PT INR POC ABG pH POC ABG pCO2 POC ABG pO2 65 L Sodium Potassium Chloride Carbon Dioxide BUN Creatinine Glucose POC Glucose 153 H 249 H Calcium AST C-Reactive Protein Total Protein Albumin TSH Urine pH Urine WBC (Auto) Vancomycin Trough Crossmatch 11/01/18 11/02/18 11/02/18 18:11 05:04 07:17 RBC 3.08 L Hgb 10.1 L Hct 30.1 L MCV 98 H MCH 33 H RDW 16.7 H Plt Count Lymph % (Auto) [place] % (Auto) Lymph # Seg Neutrophils % Seg Neuts % (Manual) 92.0 H Lymphocytes % (Manual) 3.0 L Monocytes % (Manual) Seg Neutrophils # Lymphocytes # (Manual) 0.2 L PT INR POC ABG pH POC ABG pCO2 POC ABG pO2 Sodium Potassium Chloride Carbon Dioxide BUN Creatinine Glucose POC Glucose 175 H 118 H Calcium AST C-Reactive Protein Total Protein Albumin TSH Urine pH Urine WBC (Auto) Vancomycin Trough Crossmatch 11/02/18 11/02/18 11/02/18 07:54 09:32 12:28 RBC Hgb Hct MCV MCH RDW Plt Count Lymph % (Auto) [place] % (Auto) Lymph # Seg Neutrophils % Seg Neuts % (Manual) Lymphocytes % (Manual) Monocytes % (Manual) Seg Neutrophils # Lymphocytes # (Manual) PT INR POC ABG pH 7.514 H POC ABG pCO2 POC ABG pO2 70 L Sodium 135 L Potassium Chloride Carbon Dioxide BUN 48 H Creatinine 2.2 H Glucose 170 H POC Glucose 242 H Calcium 7.4 L AST C-Reactive Protein Total Protein Albumin TSH Urine pH Urine WBC (Auto) Vancomycin Trough Crossmatch 11/02/18 11/03/18 11/03/18 23:32 04:34 05:10 RBC 2.87 L Hgb 9.4 L Hct 28.5 L MCV 99 H MCH 33 H RDW 16.7 H Plt Count Lymph % (Auto) [place] % (Auto) Lymph # Seg Neutrophils % Seg Neuts % (Manual) 91.0 H Lymphocytes % (Manual) 4.0 L Monocytes % (Manual) Seg Neutrophils # Lymphocytes # (Manual) 0.3 L PT INR POC ABG pH POC ABG pCO2 33.2 L POC ABG pO2 76 L Sodium Potassium Chloride Carbon Dioxide BUN Creatinine Glucose POC Glucose 177 H Calcium AST C-Reactive Protein Total Protein Albumin TSH Urine pH Urine WBC (Auto) Vancomycin Trough Crossmatch 11/03/18 11/03/18 11/03/18 06:04 12:26 18:43 RBC Hgb Hct MCV MCH RDW Plt Count Lymph % (Auto) [place] % (Auto) Lymph # Seg Neutrophils % Seg Neuts % (Manual) Lymphocytes % (Manual) Monocytes % (Manual) Seg Neutrophils # Lymphocytes # (Manual) PT INR POC ABG pH POC ABG pCO2 POC ABG pO2 Sodium Potassium Chloride Carbon Dioxide BUN Creatinine Glucose POC Glucose 168 H 196 H 153 H Calcium AST C-Reactive Protein Total Protein Albumin TSH Urine pH Urine WBC (Auto) Vancomycin Trough Crossmatch 11/03/18 11/04/18 11/04/18 23:34 03:50 05:05 RBC 2.74 L Hgb 9.1 L Hct 27.3 L MCV 99 H MCH 33 H RDW 16.5 H Plt Count Lymph % (Auto) [place] % (Auto) Lymph # Seg Neutrophils % Seg Neuts % (Manual) 87.0 H Lymphocytes % (Manual) 7.0 L Monocytes % (Manual) Seg Neutrophils # Lymphocytes # (Manual) 0.5 L PT INR POC ABG pH POC ABG pCO2 31.7 L POC ABG pO2 74 L Sodium Potassium Chloride Carbon Dioxide BUN Creatinine Glucose POC Glucose 213 H Calcium AST C-Reactive Protein Total Protein Albumin TSH Urine pH Urine WBC (Auto) Vancomycin Trough Crossmatch 11/04/18 11/04/1811/04/19 05:05 05:23 12:26 RBC Hgb Hct MCV MCH RDW Plt Count Lymph % (Auto) [place] % (Auto) Lymph # Seg Neutrophils % Seg Neuts % (Manual) Lymphocytes % (Manual) Monocytes % (Manual) Seg Neutrophils # Lymphocytes # (Manual) PT INR POC ABG pH POC ABG pCO2 POC ABG pO2 Sodium Potassium Chloride Carbon Dioxide BUN 84 H Creatinine 3.3 H Glucose 177 H POC Glucose 196 H 182 H Calcium 7.6 L AST C-Reactive Protein Total Protein Albumin TSH Urine pH Urine WBC (Auto) Vancomycin Trough Crossmatch 11/04/18 11/04/18 11/05/18 13:25 22:36 05:07 RBC Hgb Hct MCV MCH RDW Plt Count Lymph % (Auto) [place] % (Auto) Lymph # Seg Neutrophils % Seg Neuts % (Manual) Lymphocytes % (Manual) Monocytes % (Manual) Seg Neutrophils # Lymphocytes # (Manual) PT INR POC ABG pH POC ABG pCO2 30.1 L POC ABG pO2 63 L Sodium Potassium Chloride Carbon Dioxide BUN Creatinine Glucose POC Glucose 159 H Calcium AST C-Reactive Protein Total Protein Albumin TSH Urine pH Urine WBC (Auto) Vancomycin Trough 4.4 L Crossmatch 11/05/18 11/05/18 11/05/18 05:42 06:36 12:54 RBC Hgb Hct MCV MCH RDW Plt Count Lymph % (Auto) [place] % (Auto) Lymph # Seg Neutrophils % Seg Neuts % (Manual) Lymphocytes % (Manual) Monocytes % (Manual) Seg Neutrophils # Lymphocytes # (Manual) PT INR POC ABG pH POC ABG pCO2 POC ABG pO2 Sodium 134 L Potassium 3.4 L Chloride Carbon Dioxide 18 L BUN 93 H Creatinine 3.7 H Glucose 230 H POC Glucose 233 H 237 H Calcium 7.8 L AST C-Reactive Protein Total Protein Albumin TSH Urine pH Urine WBC (Auto) Vancomycin Trough Crossmatch 11/05/18 11/05/18 11/06/18 19:36 23:35 01:59 RBC Hgb Hct MCV MCH RDW Plt Count Lymph % (Auto) [place] % (Auto) Lymph # Seg Neutrophils % Seg Neuts % (Manual) Lymphocytes % (Manual) Monocytes % (Manual) Seg Neutrophils # Lymphocytes # (Manual) PT INR POC ABG pH POC ABG pCO2 POC ABG pO2 Sodium Potassium Chloride Carbon Dioxide BUN Creatinine Glucose POC Glucose 174 H 56 L 112 H Calcium AST C-Reactive Protein Total Protein Albumin TSH Urine pH Urine WBC (Auto) Vancomycin Trough Crossmatch 11/06/18 11/06/18 11/06/18 04:33 05:06 07:24 RBC 2.83 L Hgb 9.3 L Hct 27.9 L MCV 99 H MCH 33 H RDW 15.9 H Plt Count 133 L Lymph % (Auto) [place] % (Auto) Lymph # Seg Neutrophils % Seg Neuts % (Manual) 94.0 H Lymphocytes % (Manual) 4.0 L Monocytes % (Manual) Seg Neutrophils # Lymphocytes # (Manual) 0.3 L PT INR POC ABG pH POC ABG pCO2 32.4 L POC ABG pO2 73 L Sodium Potassium Chloride Carbon Dioxide BUN Creatinine Glucose POC Glucose 139 H Calcium AST C-Reactive Protein Total Protein Albumin TSH Urine pH Urine WBC (Auto) Vancomycin Trough Crossmatch 11/06/18 11/06/18 11/06/18 07:24 11:52 17:16 RBC Hgb Hct MCV MCH RDW Plt Count Lymph % (Auto) [place] % (Auto) Lymph # Seg Neutrophils % Seg Neuts % (Manual) Lymphocytes % (Manual) Monocytes % (Manual) Seg Neutrophils # Lymphocytes # (Manual) PT INR POC ABG pH POC ABG pCO2 POC ABG pO2 Sodium 136 L Potassium 3.2 L Chloride Carbon Dioxide BUN 59 H Creatinine 2.3 H Glucose 137 H POC Glucose 212 H 194 H Calcium 7.4 L AST C-Reactive Protein Total Protein Albumin TSH Urine pH Urine WBC (Auto) Vancomycin Trough Crossmatch 11/07/18 11/07/18 11/07/18 00:44 05:56 06:12 RBC 2.64 L Hgb 8.7 L Hct 26.3 L MCV 100 H MCH 33 H RDW 15.7 H Plt Count Lymph % (Auto) 4.6 L [place] % (Auto) Lymph # 0.4 L Seg Neutrophils % 89.4 H Seg Neuts % (Manual) Lymphocytes % (Manual) Monocytes % (Manual) Seg Neutrophils # 8.3 H Lymphocytes # (Manual) PT INR POC ABG pH POC ABG pCO2 POC ABG pO2 Sodium Potassium Chloride Carbon Dioxide BUN Creatinine Glucose POC Glucose 193 H 145 H Calcium AST C-Reactive Protein Total Protein Albumin TSH Urine pH Urine WBC (Auto) Vancomycin Trough Crossmatch 0411/07/18 11/07/18 06:12 12:20 17:27 RBC Hgb Hct MCV MCH RDW Plt Count Lymph % (Auto) [place] % (Auto) Lymph # Seg Neutrophils % Seg Neuts % (Manual) Lymphocytes % (Manual) Monocytes % (Manual) Seg Neutrophils # Lymphocytes # (Manual) PT INR POC ABG pH POC ABG pCO2 POC ABG pO2 Sodium Potassium Chloride Carbon Dioxide BUN 74 H Creatinine 2.8 H Glucose 143 H POC Glucose 207 H 170 H Calcium 7.7 L AST C-Reactive Protein Total Protein Albumin TSH Urine pH Urine WBC (Auto) Vancomycin Trough Crossmatch 11/07/18 11/08/18 11/08/18 23:40 06:04 07:09 RBC Hgb Hct MCV MCH RDW Plt Count Lymph % (Auto) [place] % (Auto) Lymph # Seg Neutrophils % Seg Neuts % (Manual) Lymphocytes % (Manual) Monocytes % (Manual) Seg Neutrophils # Lymphocytes # (Manual) PT 15.8 H INR 1.18 H POC ABG pH POC ABG pCO2 POC ABG pO2 Sodium Potassium Chloride Carbon Dioxide BUN Creatinine Glucose POC Glucose 188 H 170 H Calcium AST C-Reactive Protein Total Protein Albumin TSH Urine pH Urine WBC (Auto) Vancomycin Trough Crossmatch 11/08/18 11/08/18 11/08/18 11:21 18:29 23:10 RBC Hgb Hct MCV MCH RDW Plt Count Lymph % (Auto) [place] % (Auto) Lymph # Seg Neutrophils % Seg Neuts % (Manual) Lymphocytes % (Manual) Monocytes % (Manual) Seg Neutrophils # Lymphocytes # (Manual) PT INR POC ABG pH POC ABG pCO2 POC ABG pO2 Sodium Potassium Chloride Carbon Dioxide BUN Creatinine Glucose POC Glucose 191 H 224 H 197 H Calcium AST C-Reactive Protein Total Protein Albumin TSH Urine pH Urine WBC (Auto) Vancomycin Trough Crossmatch 11/09/18 11/09/18 11/09/18 04:59 07:35 07:35 RBC 2.51 L Hgb 8.3 L Hct 25.3 L MCV 101 H MCH 33 H RDW Plt Count Lymph % (Auto) [place] % (Auto) Lymph # Seg Neutrophils % Seg Neuts % (Manual) 79.0 H Lymphocytes % (Manual) 8.0 L Monocytes % (Manual) 9.0 H Seg Neutrophils # Lymphocytes # (Manual) 0.6 L PT INR POC ABG pH POC ABG pCO2 POC ABG pO2 Sodium 133 L Potassium 3.5 L Chloride Carbon Dioxide BUN 54 H Creatinine 2.4 H Glucose 166 H POC Glucose 173 H Calcium 8.0 L AST C-Reactive Protein Total Protein Albumin TSH Urine pH Urine WBC (Auto) Vancomycin Trough Crossmatch 11/09/18 11/09/18 11/09/18 11:47 15:17 17:15 RBC Hgb Hct MCV MCH RDW Plt Count Lymph % (Auto) [place] % (Auto) Lymph # Seg Neutrophils % Seg Neuts % (Manual) Lymphocytes % (Manual) Monocytes % (Manual) Seg Neutrophils # Lymphocytes # (Manual) PT INR POC ABG pH POC ABG pCO2 POC ABG pO2 75 L Sodium Potassium Chloride Carbon Dioxide BUN Creatinine Glucose POC Glucose 226 H 202 H Calcium AST C-Reactive Protein Total Protein Albumin TSH Urine pH Urine WBC (Auto) Vancomycin Trough Crossmatch 11/10/18 11/10/18 11/10/18 00:04 04:34 04:34 RBC 2.36 L Hgb 7.8 L Hct 24.1 L MCV 102 H MCH 33 H RDW Plt Count Lymph % (Auto) [place] % (Auto) Lymph # Seg Neutrophils % Seg Neuts % (Manual) 82.0 H Lymphocytes % (Manual) 6.0 L Monocytes % (Manual) Seg Neutrophils # Lymphocytes # (Manual) 0.3 L PT INR POC ABG pH POC ABG pCO2 POC ABG pO2 Sodium 136 L Potassium 3.2 L Chloride Carbon Dioxide BUN 39 H Creatinine 2.0 H Glucose 152 H POC Glucose 197 H Calcium 8.3 L AST C-Reactive Protein Total Protein 6.0 L Albumin 1.4 L TSH Urine pH Urine WBC (Auto) Vancomycin Trough Crossmatch 11/10/18 11/10/18 11/10/18 05:12 12:01 17:48 RBC Hgb Hct MCV MCH RDW Plt Count Lymph % (Auto) [place] % (Auto) Lymph # Seg Neutrophils % Seg Neuts % (Manual) Lymphocytes % (Manual) Monocytes % (Manual) Seg Neutrophils # Lymphocytes # (Manual) PT INR POC ABG pH POC ABG pCO2 POC ABG pO2 Sodium Potassium Chloride Carbon Dioxide BUN Creatinine Glucose POC Glucose 163 H 139 H 215 H Calcium AST C-Reactive Protein Total Protein Albumin TSH Urine pH Urine WBC (Auto) Vancomycin Trough Crossmatch 11/10/18 11/11/18 11/11/18 23:51 04:45 06:05 RBC Hgb Hct MCV MCH RDW Plt Count Lymph % (Auto) [place] % (Auto) Lymph # Seg Neutrophils % Seg Neuts % (Manual) Lymphocytes % (Manual) Monocytes % (Manual) Seg Neutrophils # Lymphocytes # (Manual) PT INR POC ABG pH POC ABG pCO2 34.2 L POC ABG pO2 Sodium Potassium Chloride Carbon Dioxide BUN Creatinine Glucose POC Glucose 243 H 175 H Calcium AST C-Reactive Protein Total Protein Albumin TSH Urine pH Urine WBC (Auto) Vancomycin Trough Crossmatch 11/11/18 11/11/18 11/11/18 06:07 06:07 18:06 RBC 2.27 L Hgb 7.6 L Hct 22.6 L MCV 100 H MCH 33 H RDW Plt Count Lymph % (Auto) 10.7 L [place] % (Auto) Lymph # 0.6 L Seg Neutrophils % 81.0 H Seg Neuts % (Manual) 81.0 H Lymphocytes % (Manual) 11.0 L Monocytes % (Manual) Seg Neutrophils # Lymphocytes # (Manual) 0.6 L PT INR POC ABG pH POC ABG pCO2 POC ABG pO2 Sodium 134 L Potassium 3.2 L Chloride Carbon Dioxide BUN 58 H Creatinine 2.6 H Glucose 139 H POC Glucose 209 H Calcium 7.7 L AST C-Reactive Protein Total Protein 6.2 L Albumin 1.4 L TSH Urine pH Urine WBC (Auto) Vancomycin Trough Crossmatch 11/11/18 11/12/18 11/12/18 23:59 04:35 05:15 RBC 2.28 L Hgb 7.4 L Hct 22.8 L MCV 100 H MCH 33 H RDW Plt Count Lymph % (Auto) 8.1 L [place] % (Auto) 7.9 H Lymph # 0.5 L Seg Neutrophils % 83.2 H Seg Neuts % (Manual) Lymphocytes % (Manual) Monocytes % (Manual) Seg Neutrophils # Lymphocytes # (Manual) PT INR POC ABG pH POC ABG pCO2 31.1 L POC ABG pO2 Sodium Potassium Chloride Carbon Dioxide BUN Creatinine Glucose POC Glucose 143 H Calcium AST C-Reactive Protein Total Protein Albumin TSH Urine pH Urine WBC (Auto) Vancomycin Trough Crossmatch 11/12/18 11/12/18 11/12/18 05:15 05:29 11:18 RBC Hgb Hct MCV MCH RDW Plt Count Lymph % (Auto) [place] % (Auto) Lymph # Seg Neutrophils % Seg Neuts % (Manual) Lymphocytes % (Manual) Monocytes % (Manual) Seg Neutrophils # Lymphocytes # (Manual) PT INR POC ABG pH POC ABG pCO2 POC ABG pO2 Sodium 133 L Potassium Chloride Carbon Dioxide 21 L BUN 70 H Creatinine 2.8 H Glucose 165 H POC Glucose 186 H 153 H Calcium 7.9 L AST 81 H C-Reactive Protein Total Protein 5.9 L Albumin 1.4 L TSH Urine pH Urine WBC (Auto) Vancomycin Trough Crossmatch 11/12/18 11/12/18 11/13/18 17:55 23:29 05:13 RBC 2.15 L Hgb 7.1 L Hct 21.6 L MCV 101 H MCH 33 H RDW Plt Count Lymph % (Auto) [place] % (Auto) Lymph # Seg Neutrophils % Seg Neuts % (Manual) 81.0 H Lymphocytes % (Manual) 3.0 L Monocytes % (Manual) 8.0 H Seg Neutrophils # Lymphocytes # (Manual) 0.2 L PT INR POC ABG pH POC ABG pCO2 POC ABG pO2 Sodium Potassium Chloride Carbon Dioxide BUN Creatinine Glucose POC Glucose 138 H 227 H Calcium AST C-Reactive Protein Total Protein Albumin TSH Urine pH Urine WBC (Auto) Vancomycin Trough Crossmatch 11/13/18 11/13/18 11/13/18 05:13 05:25 11:21 RBC Hgb Hct MCV MCH RDW Plt Count Lymph % (Auto) [place] % (Auto) Lymph # Seg Neutrophils % Seg Neuts % (Manual) Lymphocytes % (Manual) Monocytes % (Manual) Seg Neutrophils # Lymphocytes # (Manual) PT INR POC ABG pH POC ABG pCO2 POC ABG pO2 Sodium 133 L Potassium Chloride Carbon Dioxide BUN 48 H Creatinine 2.2 H Glucose 155 H POC Glucose 159 H 149 H Calcium 8.3 L AST C-Reactive Protein Total Protein Albumin TSH Urine pH Urine WBC (Auto) Vancomycin Trough Crossmatch 11/13/18 11/13/18 11/14/18 18:06 23:29 04:32 RBC Hgb Hct MCV MCH RDW Plt Count Lymph % (Auto) [place] % (Auto) Lymph # Seg Neutrophils % Seg Neuts % (Manual) Lymphocytes % (Manual) Monocytes % (Manual) Seg Neutrophils # Lymphocytes # (Manual) PT 16.9 H INR 1.29 H POC ABG pH POC ABG pCO2 POC ABG pO2 Sodium Potassium Chloride Carbon Dioxide BUN Creatinine Glucose POC Glucose 192 H 176 H Calcium AST C-Reactive Protein Total Protein Albumin TSH Urine pH Urine WBC (Auto) Vancomycin Trough Crossmatch 11/14/18 11/14/18 11/14/18 04:32 04:32 05:59 RBC 2.16 L Hgb 7.0 L Hct 21.5 L MCV 100 H MCH 33 H RDW Plt Count Lymph % (Auto) 5.3 L [place] % (Auto) 9.3 H Lymph # 0.4 L Seg Neutrophils % 84.8 H Seg Neuts % (Manual) Lymphocytes % (Manual) Monocytes % (Manual) Seg Neutrophils # Lymphocytes # (Manual) PT INR POC ABG pH POC ABG pCO2 POC ABG pO2 Sodium 131 L Potassium Chloride 97.6 L Carbon Dioxide BUN 59 H Creatinine 2.6 H Glucose 129 H POC Glucose 135 H Calcium 8.3 L AST C-Reactive Protein Total Protein Albumin TSH Urine pH Urine WBC (Auto) Vancomycin Trough Crossmatch 11/14/18 11/14/18 11/14/18 12:15 20:00 23:26 RBC Hgb Hct MCV MCH RDW Plt Count Lymph % (Auto) [place] % (Auto) Lymph # Seg Neutrophils % Seg Neuts % (Manual) Lymphocytes % (Manual) Monocytes % (Manual) Seg Neutrophils # Lymphocytes # (Manual) PT INR POC ABG pH POC ABG pCO2 POC ABG pO2 Sodium Potassium Chloride Carbon Dioxide BUN Creatinine Glucose POC Glucose 204 H 147 H Calcium AST C-Reactive Protein Total Protein Albumin TSH Urine pH Urine WBC (Auto) Vancomycin Trough Crossmatch See Detail 11/15/18 11/15/18 05:18 07:40 RBC 2.59 L Hgb 8.3 L Hct 25.2 L MCV 97 H MCH RDW Plt Count Lymph % (Auto) [place] % (Auto) Lymph # Seg Neutrophils % Seg Neuts % (Manual) Lymphocytes % (Manual) Monocytes % (Manual) Seg Neutrophils # Lymphocytes # (Manual) PT INR POC ABG pH POC ABG pCO2 POC ABG pO2 Sodium Potassium Chloride Carbon Dioxide BUN Creatinine Glucose POC Glucose 154 H Calcium AST C-Reactive Protein Total Protein Albumin TSH Urine pH Urine WBC (Auto) Vancomycin Trough Crossmatch Chest x-ray: image reviewed (small bilateral pleural effusions; trach tube in good position) Allied health notes reviewed: nursing
[2018-11-15] MEDS ORDERED: PROVENTIL IH PRN (12:23)
--- NOTE | 2018-11-15 18:43 | Progress Note ---
Assessment and Plan - Patient Problems (1) Altered mental status Current Visit: Yes Status: Acute Qualifiers: Altered mental status type: unspecified Qualified Code(s): R41.82 - Altered mental status, unspecified Plan to address problem: most likely due to sinus infection follow ID. (2) Hyperkalemia Current Visit: Yes Status: Acute Plan to address problem: Treated, and continue to correct with HD. corrected. (3) Hypernatremia Current Visit: Yes Status: Acute Plan to address problem: correct with HD. As above when feasible with the Renal service. patient continues with HD. (4) Uremia Current Visit: Yes Status: Acute Plan to address problem: treat underlying cause. Follow Renal. (5) Acute encephalopathy Current Visit: Yes Status: Chronic Plan to address problem: supportive care. (6) ESRD needing dialysis Current Visit: Yes Status: Chronic Plan to address problem: Continue on HD. as above once feasible. (7) Sepsis Current Visit: Yes Status: Acute Plan to address problem: treat the etiology.Most likely due to sinus infection. Subjective Date of service: 11/15/18 Principal diagnosis: Acute hypoxemic resp failure; Severe sepsis with shock ;acute encephaloapthy Interval history: Patient seen/examined,in the ICU. I have spoken to the daughter, and his sister today, regarding plan of care, and prognosis. I have rec less aggressive path, including hospice. They will think about it ,and let me know. Mean while, will continue current management. His prognosis is quite poor at this time. Patient seen/examined, resting in bed, labs reviewed.Still on the vent.If unable to be weaned off the vent, on timely /expected time, will push for LTAC eval[facility]placement [facility] incident response manager to start preparing for this possibility. Patient seen/examined, resting in bed, still not wean able yet.He had HD today. patient seen/examined, resting in bed. labs/records/notes reviewed, including ID consult notes. Cxr with PNA., 24hr Tm 102. Patient seen/examined, resting in bed, NR, BP low, and Levo increased back up ,to maintain any appreciable reading. Labs reviewed. I have discussed/updated the daughter Ramón today, discussed code status again, and prognosis,as well as long time plan/disposition.She has signed a Do NOT Resuscitate, and the other family member suppose to sign hers today, or tomorrow. I have recommended, and she is in agreement to the LTAC placement at [facility], where he can also get trached, if, and when feasible. I want the case hardener to act on this on timely manner.MRSA positive in the sputum.ID on the case. Patient seen/examined, resting in bed, labs reviewed. Patient is now an AND status.Plan for LTAC referral by the case hardener, I have spoken to the family about [facility], and she was in agreement. patient seen/examined, resting in bed, records reviewed, case d/w Dr Garcia.I had already spoken to the primary daughter about LTAC this past week, and she was in agreement. I do not think patient has to be trached/peg here before d/c, and transfer to the LTAC, both the patient, and family will have ample time to think tis over ,if /when it comes to that.I will however continue to speak to them. PLs read notes, so we can all be on the same plan for disposition. patient seen/examined, resting in bed. labs/records reviewed, family meeting held with the 3 Daughters by me. Spent time discussing prognosis, trach/peg. they have agreed to these procedures, even if there could be serious complication. I will consult ENT- Dr West,while waiting on EEG results.Once completed, will transfer to the LTAC as agreed to by the family.I have ensured them , that the prognosis is poor, no matter what is done hence forth. patient seen/examined, resting in bed, discussed EEG results with pulm, and with the Nurse. This an abn EEG, and the family had indicated the wish to proceed with treach/peg.Will consult Gen surgery. Patient seen/examined, resting in bed, not readily responsive. Gen surgery awaiting family meeting between himself, and the family, before proceeding with any surgery. I have had all the meeting needed with the family , and every thing is documented on the notes.Dr Phipps will cover my rounds from monday till monday. I am avalable on the phone [phone]. Patient seen/examined, labs/records reviewed, d/w family 24hrs ago, they still want to go ahead with traech/peg. . I havs spoken tp pulm today, and she remains in aggrement, as i am. patient needs this done, so he can transfer to LTAC. Patient seen/examined, resting in bed, labs reviewed, H/H dropped to 7.1. he is scheduled for Surgery tomorrow.Will replace PRBc if level 7, or below. Patient seen/examined, resting in bed, records reviewed, as well as notes. he is s/p peg/treach placement. Just finished HD with out any fluid take ot due to hypotension. He has just been taken off pressors. Will plan d/c to LTAC in the next day or so. Patient seen/examined, resting in bed, record/notes reviewed. will reach out to the family, for further discussion.If stable for transfer to LTAC with D/C ,will do so. Objective - Constitutional Vitals: Vital Signs - 12hr 11/15/18 11/15/18 11/15/18 07:57 08:00 08:51 Temperature 97.4 F L Pulse Rate 90 92 H Pulse Rate [ Bilateral] Pulse Rate [ 90 From Monitor] Pulse Rate [ 90 Left Brachial] Pulse Rate [ 90 Left Radial] Pulse Rate [ 90 Right Radial] Respiratory 22 Rate Blood Pressure 115/56 O2 Sat by Pulse 98 100 Oximetry O2 Sat by Pulse Oximetry [ Assessment] 11/15/18 11/15/18 11/15/18 09:01 11:47 12:00 Temperature 97.2 F L Pulse Rate 91 H 90 Pulse Rate [ Bilateral] Pulse Rate [ From Monitor] Pulse Rate [ Left Brachial] Pulse Rate [ Left Radial] Pulse Rate [ Right Radial] Respiratory Rate Blood Pressure 113/55 103/53 O2 Sat by Pulse 99 99 Oximetry O2 Sat by Pulse 99 Oximetry [ Assessment] 11/15/18 11/15/18 11/15/18 13:05 13:22 15:00 Temperature 97.6 F Pulse Rate 92 H Pulse Rate [ 96 H Bilateral] Pulse Rate [ 96 H From Monitor] Pulse Rate [ 96 H Left Brachial] Pulse Rate [ 96 H Left Radial] Pulse Rate [ 96 H Right Radial] Respiratory 22 Rate Blood Pressure 106/58 116/60 O2 Sat by Pulse 98 99 Oximetry O2 Sat by Pulse Oximetry [ Assessment] 11/15/18 17:31 Temperature Pulse Rate 100 H Pulse Rate [ Bilateral] Pulse Rate [ From Monitor] Pulse Rate [ Left Brachial] Pulse Rate [ Left Radial] Pulse Rate [ Right Radial] Respiratory Rate Blood Pressure 130/64 O2 Sat by Pulse 98 Oximetry O2 Sat by Pulse Oximetry [ Assessment] General appearance: Present: severe distress, cachectic - EENT Eyes: PERRL, EOM intact ENT: hearing intact, clear oral mucosa Ears: bilateral: normal - Respiratory Respiratory: bilateral: other (on the vent.) - Breasts Breasts: deferred - Cardiovascular Rhythm: regular Heart Sounds: Present: S1 & S2. Absent: gallop, rub - Gastrointestinal General gastrointestinal: Present: soft, non-tender, non-distended, normal bowel sounds Rectal Exam: deferred - Genitourinary Male genitourinary: deferred - Integumentary Integumentary: clear, warm, dry - Labs CBC & Chem 7: 11/15/18 07:40 11/14/18 04:32 Labs: Abnormal lab results 11/14/18 11/14/18 11/15/18 Range/Units 20:00 23:26 05:18 RBC (3.65-5.03) M/mm3 Hgb (11.8-15.2) gm/dl Hct (35.5-45.6) % MCV (84-94) fl POC ABG pCO2 (35-45) POC ABG pO2 (80-105) POC Glucose 147 H 154 H (70-105) Crossmatch See Detail 11/15/18 11/15/18 11/15/18 Range/Units 07:40 11:58 13:23 RBC 2.59 L (3.65-5.03) M/mm3 Hgb 8.3 L (11.8-15.2) gm/dl Hct 25.2 L (35.5-45.6) % MCV 97 H (84-94) fl POC ABG pCO2 34.9 L (35-45) POC ABG pO2 74 L (80-105) POC Glucose 153 H (70-105) Crossmatch 11/15/18 Range/Units 18:24 RBC (3.65-5.03) M/mm3 Hgb (11.8-15.2) gm/dl Hct (35.5-45.6) % MCV (84-94) fl POC ABG pCO2 (35-45) POC ABG pO2 (80-105) POC Glucose 210 H (70-105) Crossmatch Medications & Allergies - Medications Allergies/Adverse Reactions: Allergies No Known Allergies Allergy (Verified 01/18/18 20:10) Home Medications: Home Medications Medication Instructions Recorded Confirmed Last Taken Type Acetaminophen [Acetaminophen TAB] 650 mg PO Q4H PRN 03/12/18 10/31/18 Unknown History Calcium Acetate [Phoslo] 667 mg PO TID 03/12/18 10/31/18 05/13/18 17:00 History Carvedilol [Coreg] 6.25 mg PO BID 03/12/18 10/31/18 05/13/18 09:00 History Ergocalciferol 50,000 unit PO QWEEK 03/12/18 10/31/18 05/11/18 09:00 History Apixaban [Eliquis] 2.5 mg PO BID tablet 08/21/18 10/31/18 Unknown Rx Megestrol [Megace] 400 mg PO QDAY 10/31/18 10/31/18 Unknown History Mirtazapine [Remeron] 15 mg PO QHS 10/31/18 10/31/18 Unknown History Elaine-José Rx Tablet 1 tab PO QDAY 10/31/18 10/31/18 Unknown History Sodium Bicarbonate 650 mg PO BID 10/31/18 10/31/18 Unknown History traMADol [Ultram 50 MG tab] 25 mg PO Q12H PRN 10/31/18 10/31/18 Unknown History Active Medications: Generic Name Dose Route Start Last Admin Trade Name Freq PRN Reason Stop Dose Admin Acetaminophen 650 mg 11/02/18 09:25 11/09/18 18:46 Tylenol FEEDTUBE 650 mg Q6H PRN Administration Fever >101 Albuterol 2.5 mg 11/15/18 12:23 Proventil IH Q4HRT PRN Shortness Of Breath Lipase/Protease/Amylase 1 each 11/01/18 10:04 Pancreyobani [place] 10,500 Unit FEEDTUBE PRN PRN For Clogged Feeding Tube Calcium Acetate 667 mg 11/13/18 08:00 11/15/18 12:59 Phoslo PO 667 mg TIDWM KIRSTEN Administration Epoetin [place] 20,000 unit 11/05/18 10:21 11/12/18 17:30 Procrit SUB-Q 20,000 unit ALEJO PRN Administration hemodialysis Ergocalciferol 50,000 unit 11/16/18 10:00 Vitamin D2 PO Fr KIRSTEN Famotidine 20 mg 11/01/18 10:00 11/15/18 09:22 Pepcid PO 20 mg DAILY KIRSTEN Administration Heparin Sodium (Porcine) 5,000 unit 10/29/18 22:00 11/15/18 14:29 Heparin SUB-Q 5,000 unit Q8HR KIRSTEN Administration Norepinephrine 4 mg in 250 mls @ 7.5 mls/hr 10/30/18 01:00 11/15/18 14:29 Levophed Drip 4 Mg/Ns 250 Ml IV 4 mcg/min TITR KIRSTEN 15 mls/hr Titration Protocol 2 MCG/MIN Sodium Chloride 100 mls @ 999 mls/hr 11/09/18 08:48 Nacl 0.9% IV ALEJO PRN Hypotension Sodium Chloride 100 mls @ 999 mls/hr 11/12/18 08:43 Nacl 0.9% IV ALEJO PRN Hypotension Sodium Chloride 100 mls @ 999 mls/hr 11/14/18 08:49 Nacl 0.9% IV ALEJO PRN Hypotension Sodium Chloride 500 mls @ 0 mls/hr 11/14/18 19:11 11/14/18 23:00 Nacl 0.9% 500 Ml IV 11/15/18 19:10 40 mls/hr ONCE NR Administration As Directed Insulin Human Lispro 0 unit 10/30/18 10:00 11/15/18 12:59 Humalog SUB-Q Not Given Q6HR [facility] Protocol Levetiracetam 500 mg 11/07/18 10:00 11/15/18 09:21 Keppra PO 500 mg BID KIRSTEN Administration Midodrine 10 mg 11/13/18 11:00 11/15/18 14:28 Proamatine PO 10 mg TID KIRSTEN Administration Multivit/Ca Carb/B Cmplx/FA/Prenat 1 cap 11/13/18 10:00 11/15/18 09:26 Renal Caps PO 1 cap QDAY KIRSTEN Administration Simple Syrup 15 ml 11/01/18 10:04 11/06/18 00:09 Simple Syrup FEEDTUBE 15 ml PRN PRN Administration Hypoglycemia Simple Syrup 30 ml 11/01/18 10:04 Simple Syrup FEEDTUBE PRN PRN Hypoglycemia Sodium Bicarbonate 325 mg 11/01/18 10:04 Sodium Bicarbonate FEEDTUBE PRN PRN For Clogged Feeding Tube Sodium Bicarbonate 650 mg 11/13/18 10:00 11/15/18 09:23 Sodium Bicarbonate PO 650 mg BID KIRSTEN Administration
[2018-11-16 05:56] LABS: Basophils # (Auto) 0.1 K/mm3 (0.0-0.1); Basophils % (Auto) 0.9 % (0.0-1.8); Eosinophils # (Auto) 0.1 K/mm3 (0.0-0.4); Eosinophils % (Auto) 0.4 % (0.0-4.3); Hematocrit 26.2 % (35.5-45.6); Hemoglobin 8.5 gm/dl (11.8-15.2); Lymphocytes # (Auto) 0.6 K/mm3 (1.2-5.4); Lymphocytes % (Auto) 4.3 % (13.4-35.0); Mean Corpuscular HGB Conc 32 % (32-34); Mean Corpuscular Volume 97 fl (84-94); Monocytes # (Auto) 0.8 K/mm3 (0.0-0.8); Monocytes % (Auto) 6.1 % (0.0-7.3); Platelet Count 276 K/mm3 (140-440); Red Cell Distribution Width 15.7 % (13.2-15.2)
[2018-11-16 06:21] LABS: Albumin 1.2 g/dL (3.9-5); Calcium 8.5 mg/dL (8.4-10.2)
[2018-11-16] MEDS: PHOSLO PO SCH ×3 (08:00→14:51)
[2018-11-16] MEDS ORDERED: NACL 0.9% 100 ML IV PRN (08:36)
[2018-11-16] MEDS: PROAMATINE PO SCH (08:51)
--- NOTE | 2018-11-16 09:22 | Progress Note ---
Assessment and Plan -s/p PEA arrest -Severe sepsis with septic shock -Fevers, Tracheal aspirate positive for MRSA -Acute hypoxic respiratory failure on MVS s/p trachesotomy -Acute encephalopathy ( toxic, metabolic) -Severe protein calorie malnutrition -Hyperkalemia (resolved) -ESRD on HD, clotted graft femoral HD catheter -Hyperosmolar hyperglycemic state( improving) -Hypotension, multifactorial, ?sepsis, dehydration -Hypernatremia, resolved -PVD s/p right BKA -Prostate cancer s/p suprapubic catheter -Continue with MVS -Trach care, airway clearance, secretion management -Lung protective strategies -VAP bundle addressed. -Supplemental oxygen, wean for O2 sats>90% -Daily SBTs as tolerated, tolerating some PSV -VTE prophylaxis( heparin) -Stress ulcer prophylaxis( Famotidine) -High dose sliding scale insulin with accuchecks -Tube feedings with aspiration precautions, HOB >40 -Glycemic control, target blood glucose of 140-180mg/dL -Free water flushes, while monitoring hyponatremia -Continue wound care by wound care team -Supportive HD -LTACH for weaning -prn saline boluses, vasopressor support to keep MAP>65 -Continue midodrine CONDITION: CRITICAL PROGNOSIS: POOR CODE STATUS: DNAR I have spent 31 minutes in the direct care of this critically ill patient, excluding procedure time. Critical care time was spent on this patient and during his initial evaluation, multiple re-evaluations, ordering and interpretation of labs and imaging, medications, discussion with the ICU care team. There is a high probability of clinically significant, sudden, or life- threatening deterioration that has required multiple evaluations and direct attention, intervention, and management. Subjective Date of service: 11/16/18 Principal diagnosis: sepsis, acute resp, failure. Interval history: Patient is seen today for: Acute hypoxemic respiratory failure on MVS; Severe sepsis with septic shock; acute encephaloapthy Seen and examined at bedside; 24hour events reviewed; nursing and respiratory care staff consulted; no adverse overnight events reported to me; resting peacefully in bed; tentatively to transfer to LT[facility] today AMS is persistent; BP's labile with ongoing requirement for levophed , on midodrine : no emesis or overt aspiration; s/p tracheostomy Objective Vital Signs - 12hr 11/15/18 11/15/18 11/15/18 21:30 21:45 22:00 Temperature Pulse Rate 112 H 101 H 100 H Pulse Rate [ From Monitor] Pulse Rate [ Left Brachial] Pulse Rate [ Left Radial] Pulse Rate [ Right Radial] Respiratory 26 H 30 H 25 H Rate Blood Pressure 144/63 141/64 143/64 O2 Sat by Pulse 100 100 100 Oximetry 11/15/18 11/15/18 11/15/18 22:15 22:30 22:45 Temperature Pulse Rate 98 H 99 H 100 H Pulse Rate [ From Monitor] Pulse Rate [ Left Brachial] Pulse Rate [ Left Radial] Pulse Rate [ Right Radial] Respiratory 27 H 24 21 Rate Blood Pressure 143/63 158/66 161/67 O2 Sat by Pulse 100 100 100 Oximetry 11/15/18 11/15/18 11/15/18 23:00 23:15 23:30 Temperature Pulse Rate 100 H 98 H 99 H Pulse Rate [ 98 H From Monitor] Pulse Rate [ 97 H Left Brachial] Pulse Rate [ 96 H Left Radial] Pulse Rate [ 98 H Right Radial] Respiratory 24 26 H 18 Rate Blood Pressure 142/65 144/63 153/65 O2 Sat by Pulse 100 100 100 Oximetry 11/15/18 11/15/18 11/16/18 23:44 23:45 00:00 Temperature 100.2 F H Pulse Rate 98 H 98 H 99 H Pulse Rate [ From Monitor] Pulse Rate [ Left Brachial] Pulse Rate [ Left Radial] Pulse Rate [ Right Radial] Respiratory 17 24 Rate Blood Pressure 153/65 145/63 150/62 O2 Sat by Pulse 100 100 100 Oximetry 11/16/18 11/16/18 11/16/18 00:15 00:30 00:45 Temperature Pulse Rate 98 H 97 H 99 H Pulse Rate [ From Monitor] Pulse Rate [ Left Brachial] Pulse Rate [ Left Radial] Pulse Rate [ Right Radial] Respiratory 25 H 22 22 Rate Blood Pressure 148/62 146/63 162/64 O2 Sat by Pulse 100 100 99 Oximetry 11/16/18 11/16/18 11/16/18 01:00 01:16 01:30 Temperature Pulse Rate 98 H 99 H 100 H Pulse Rate [ From Monitor] Pulse Rate [ Left Brachial] Pulse Rate [ Left Radial] Pulse Rate [ Right Radial] Respiratory 19 24 36 H Rate Blood Pressure 136/58 140/61 131/55 O2 Sat by Pulse 99 99 99 Oximetry 11/16/18 11/16/18 11/16/18 01:45 02:00 02:15 Temperature Pulse Rate 100 H 100 H 99 H Pulse Rate [ From Monitor] Pulse Rate [ Left Brachial] Pulse Rate [ Left Radial] Pulse Rate [ Right Radial] Respiratory 35 H 35 H 35 H Rate Blood Pressure 122/55 128/52 124/51 O2 Sat by Pulse 99 99 99 Oximetry 11/16/18 11/16/18 11/16/18 02:30 02:45 03:00 Temperature Pulse Rate 100 H 100 H 101 H Pulse Rate [ 98 H From Monitor] Pulse Rate [ 105 H Left Brachial] Pulse Rate [ 96 H Left Radial] Pulse Rate [ 98 H Right Radial] Respiratory 36 H 36 H 38 H Rate Blood Pressure 127/52 130/56 132/53 O2 Sat by Pulse 99 99 99 Oximetry 11/16/18 11/16/18 11/16/18 03:15 03:30 03:31 Temperature Pulse Rate 102 H 103 H 102 H Pulse Rate [ From Monitor] Pulse Rate [ Left Brachial] Pulse Rate [ Left Radial] Pulse Rate [ Right Radial] Respiratory 37 H 36 H Rate Blood Pressure 131/52 129/53 129/53 O2 Sat by Pulse 99 99 99 Oximetry 11/16/18 11/16/18 11/16/18 03:45 04:00 04:15 Temperature 99.1 F Pulse Rate 101 H 103 H 102 H Pulse Rate [ From Monitor] Pulse Rate [ Left Brachial] Pulse Rate [ Left Radial] Pulse Rate [ Right Radial] Respiratory 38 H 38 H 38 H Rate Blood Pressure 131/53 125/51 122/51 O2 Sat by Pulse 99 99 99 Oximetry 11/16/18 11/16/18 11/16/18 04:30 04:45 05:00 Temperature Pulse Rate 102 H 102 H 102 H Pulse Rate [ From Monitor] Pulse Rate [ Left Brachial] Pulse Rate [ Left Radial] Pulse Rate [ Right Radial] Respiratory 37 H 37 H 38 H Rate Blood Pressure 126/50 130/49 122/50 O2 Sat by Pulse 99 99 99 Oximetry 11/16/18 11/16/18 11/16/18 05:15 05:30 05:46 Temperature Pulse Rate 103 H 103 H 104 H Pulse Rate [ From Monitor] Pulse Rate [ Left Brachial] Pulse Rate [ Left Radial] Pulse Rate [ Right Radial] Respiratory 39 H 38 H 40 H Rate Blood Pressure 127/50 125/51 151/57 O2 Sat by Pulse 99 99 100 Oximetry 11/16/18 11/16/18 11/16/18 06:00 06:15 06:30 Temperature Pulse Rate 106 H 106 H 117 H Pulse Rate [ From Monitor] Pulse Rate [ Left Brachial] Pulse Rate [ Left Radial] Pulse Rate [ Right Radial] Respiratory 38 H 39 H Rate Blood Pressure 106/42 106/56 127/58 O2 Sat by Pulse 99 99 88 Oximetry 11/16/18 11/16/18 11/16/18 06:45 07:00 07:15 Temperature Pulse Rate 111 H 105 H 104 H Pulse Rate [ From Monitor] Pulse Rate [ Left Brachial] Pulse Rate [ Left Radial] Pulse Rate [ Right Radial] Respiratory 38 H Rate Blood Pressure 113/48 101/42 107/49 O2 Sat by Pulse 95 97 97 Oximetry Constitutional: appears uncomfortable, other (elderly looking AAM, normocephalic and with mildly increased resp effort at rest) Eyes: non-icteric ENT: oropharynx moist, other (s/p trachesotomy) Neck: supple, no lymphadenopathy, no JVD, other (no thyromegaly) Effort: mildly labored Ascultation: Bilateral: diminished breath sounds, rhonchi Percussion: Bilateral: not dull Cardiovascular: regular rate and rhythm, murmur noted (systolic) Gastrointestinal: normoactive bowel sounds, soft, non-tender, non-distended Integumentary: rash Extremities: no cyanosis, no edema, pulses normal, no ischemia or petechiae Neurologic: unable to assess Psychiatric: other (unable to assess) CBC and BMP: 11/16/18 05:45 11/16/18 05:45 ABG, PT/INR, D-dimer: ABG POC ABG pH 7.402 (7.35-7.45) 11/16/18 08:48 POC ABG pCO2 38.0 (35-45) 11/16/18 08:48 POC ABG pO2 79 (80-105) L 11/16/18 08:48 POC ABG HCO3 23.7 (22-26 mml/L) 11/16/18 08:48 POC ABG Total CO2 25 (23-27mmol/L) 11/16/18 08:48 POC ABG O2 Sat 96 11/16/18 08:48 PT/INR, D-dimer PT 16.9 Sec. (12.2-14.9) H 11/14/18 04:32 INR 1.29 (0.87-1.13) H 11/14/18 04:32 Abnormal lab findings: Abnormal Labs 10/29/18 10/29/18 10/29/18 17:13 17:13 17:13 WBC RBC 3.62 L Hgb Hct MCV 102 H MCH 34 H RDW 19.6 H Plt Count Lymph % (Auto) [place] % (Auto) 7.8 H Lymph # Seg Neutrophils % 71.2 H Seg Neuts % (Manual) Lymphocytes % (Manual) Monocytes % (Manual) Seg Neutrophils # Lymphocytes # (Manual) PT INR POC ABG pH POC ABG pCO2 POC ABG pO2 Sodium 164 H* Potassium 6.2 H* Chloride 127.5 H Carbon Dioxide BUN 178 H Creatinine 4.2 H Glucose 131 H POC Glucose Calcium 10.7 H AST C-Reactive Protein Total Protein 9.5 H Albumin 2.6 L TSH 5.310 H Urine pH Urine WBC (Auto) Vancomycin Trough Crossmatch 10/29/18 10/30/18 10/30/18 23:57 00:06 04:35 WBC RBC Hgb Hct MCV MCH RDW Plt Count Lymph % (Auto) [place] % (Auto) Lymph # Seg Neutrophils % Seg Neuts % (Manual) Lymphocytes % (Manual) Monocytes % (Manual) Seg Neutrophils # Lymphocytes # (Manual) PT INR POC ABG pH 7.488 H POC ABG pCO2 32.1 L 34.9 L POC ABG pO2 144 H Sodium Potassium Chloride Carbon Dioxide BUN Creatinine Glucose POC Glucose 131 H Calcium AST C-Reactive Protein Total Protein Albumin TSH Urine pH Urine WBC (Auto) Vancomycin Trough Crossmatch 10/30/18 10/30/18 10/30/18 05:13 08:54 08:54 WBC RBC 3.56 L Hgb 11.7 L Hct MCV 102 H MCH 33 H RDW 19.2 H Plt Count Lymph % (Auto) [place] % (Auto) Lymph # Seg Neutrophils % Seg Neuts % (Manual) Lymphocytes % (Manual) Monocytes % (Manual) Seg Neutrophils # Lymphocytes # (Manual) PT INR POC ABG pH POC ABG pCO2 POC ABG pO2 Sodium Potassium Chloride Carbon Dioxide BUN Creatinine Glucose POC Glucose 316 H Calcium AST C-Reactive Protein 5.20 H Total Protein Albumin 2.2 L TSH Urine pH Urine WBC (Auto) Vancomycin Trough Crossmatch 10/30/18 10/30/18 10/30/18 08:59 12:03 18:30 WBC RBC Hgb Hct MCV MCH RDW Plt Count Lymph % (Auto) [place] % (Auto) Lymph # Seg Neutrophils % Seg Neuts % (Manual) Lymphocytes % (Manual) Monocytes % (Manual) Seg Neutrophils # Lymphocytes # (Manual) PT INR POC ABG pH POC ABG pCO2 POC ABG pO2 Sodium 146 H D Potassium Chloride Carbon Dioxide BUN 86 H Creatinine 2.7 H Glucose 262 H POC Glucose 232 H 57 L Calcium AST C-Reactive Protein Total Protein Albumin TSH Urine pH Urine WBC (Auto) Vancomycin Trough Crossmatch 10/30/18 10/30/18 10/30/18 18:39 19:07 19:42 WBC RBC Hgb Hct MCV MCH RDW Plt Count Lymph % (Auto) [place] % (Auto) Lymph # Seg Neutrophils % Seg Neuts % (Manual) Lymphocytes % (Manual) Monocytes % (Manual) Seg Neutrophils # Lymphocytes # (Manual) PT INR POC ABG pH POC ABG pCO2 POC ABG pO2 Sodium Potassium Chloride Carbon Dioxide BUN Creatinine Glucose POC Glucose < 40 L 51 L Calcium AST C-Reactive Protein Total Protein Albumin TSH Urine pH 8.0 H Urine WBC (Auto) > 182.0 H Vancomycin Trough Crossmatch 10/30/18 10/30/18 10/30/18 19:51 23:13 23:20 WBC RBC Hgb Hct MCV MCH RDW Plt Count Lymph % (Auto) [place] % (Auto) Lymph # Seg Neutrophils % Seg Neuts % (Manual) Lymphocytes % (Manual) Monocytes % (Manual) Seg Neutrophils # Lymphocytes # (Manual) PT INR POC ABG pH POC ABG pCO2 POC ABG pO2 Sodium Potassium Chloride 108.5 H Carbon Dioxide 21 L BUN 96 H Creatinine 3.0 H Glucose 865 H* 150 H POC Glucose 152 H Calcium AST C-Reactive Protein Total Protein Albumin TSH Urine pH Urine WBC (Auto) Vancomycin Trough Crossmatch 10/30/18 10/31/18 10/31/18 23:40 04:43 04:43 WBC RBC Hgb Hct MCV 100 H MCH 33 H RDW 18.1 H Plt Count Lymph % (Auto) [place] % (Auto) Lymph # Seg Neutrophils % Seg Neuts % (Manual) Lymphocytes % (Manual) 4.0 L Monocytes % (Manual) Seg Neutrophils # Lymphocytes # (Manual) 0.3 L PT INR POC ABG pH POC ABG pCO2 POC ABG pO2 Sodium Potassium Chloride Carbon Dioxide 19 L BUN 98 H Creatinine 3.2 H Glucose 184 H POC Glucose 145 H Calcium AST C-Reactive Protein Total Protein Albumin TSH Urine pH Urine WBC (Auto) Vancomycin Trough Crossmatch 10/31/18 10/31/18 10/31/18 05:44 11:44 13:19 WBC RBC Hgb Hct MCV MCH RDW Plt Count Lymph % (Auto) [place] % (Auto) Lymph # Seg Neutrophils % Seg Neuts % (Manual) Lymphocytes % (Manual) Monocytes % (Manual) Seg Neutrophils # Lymphocytes # (Manual) PT INR POC ABG pH POC ABG pCO2 POC ABG pO2 64 L Sodium Potassium Chloride Carbon Dioxide BUN Creatinine Glucose POC Glucose 142 H 196 H Calcium AST C-Reactive Protein Total Protein Albumin TSH Urine pH Urine WBC (Auto) Vancomycin Trough Crossmatch 10/31/18 11/01/18 11/01/18 17:36 04:07 04:07 WBC RBC 3.40 L Hgb 11.2 L Hct 33.6 L MCV 99 H MCH 33 H RDW 17.5 H Plt Count Lymph % (Auto) [place] % (Auto) Lymph # Seg Neutrophils % Seg Neuts % (Manual) 80.0 H Lymphocytes % (Manual) 4.0 L Monocytes % (Manual) Seg Neutrophils # Lymphocytes # (Manual) 0.3 L PT INR POC ABG pH POC ABG pCO2 POC ABG pO2 Sodium Potassium Chloride Carbon Dioxide 19 L BUN 108 H Creatinine 3.9 H Glucose 138 H POC Glucose 174 H Calcium 7.9 L AST C-Reactive Protein Total Protein Albumin TSH Urine pH Urine WBC (Auto) Vancomycin Trough Crossmatch 11/01/18 11/01/18 11/01/18 05:24 05:36 13:09 WBC RBC Hgb Hct MCV MCH RDW Plt Count Lymph % (Auto) [place] % (Auto) Lymph # Seg Neutrophils % Seg Neuts % (Manual) Lymphocytes % (Manual) Monocytes % (Manual) Seg Neutrophils # Lymphocytes # (Manual) PT INR POC ABG pH POC ABG pCO2 POC ABG pO2 65 L Sodium Potassium Chloride Carbon Dioxide BUN Creatinine Glucose POC Glucose 153 H 249 H Calcium AST C-Reactive Protein Total Protein Albumin TSH Urine pH Urine WBC (Auto) Vancomycin Trough Crossmatch 11/01/18 11/02/18 11/02/18 18:11 05:04 07:17 WBC RBC 3.08 L Hgb 10.1 L Hct 30.1 L MCV 98 H MCH 33 H RDW 16.7 H Plt Count Lymph % (Auto) [place] % (Auto) Lymph # Seg Neutrophils % Seg Neuts % (Manual) 92.0 H Lymphocytes % (Manual) 3.0 L Monocytes % (Manual) Seg Neutrophils # Lymphocytes # (Manual) 0.2 L PT INR POC ABG pH POC ABG pCO2 POC ABG pO2 Sodium Potassium Chloride Carbon Dioxide BUN Creatinine Glucose POC Glucose 175 H 118 H Calcium AST C-Reactive Protein Total Protein Albumin TSH Urine pH Urine WBC (Auto) Vancomycin Trough Crossmatch 11/02/18 11/02/18 11/02/18 07:54 09:32 12:28 WBC RBC Hgb Hct MCV MCH RDW Plt Count Lymph % (Auto) [place] % (Auto) Lymph # Seg Neutrophils % Seg Neuts % (Manual) Lymphocytes % (Manual) Monocytes % (Manual) Seg Neutrophils # Lymphocytes # (Manual) PT INR POC ABG pH 7.514 H POC ABG pCO2 POC ABG pO2 70 L Sodium 135 L Potassium Chloride Carbon Dioxide BUN 48 H Creatinine 2.2 H Glucose 170 H POC Glucose 242 H Calcium 7.4 L AST C-Reactive Protein Total Protein Albumin TSH Urine pH Urine WBC (Auto) Vancomycin Trough Crossmatch 11/02/18 11/03/18 11/03/18 23:32 04:34 05:10 WBC RBC 2.87 L Hgb 9.4 L Hct 28.5 L MCV 99 H MCH 33 H RDW 16.7 H Plt Count Lymph % (Auto) [place] % (Auto) Lymph # Seg Neutrophils % Seg Neuts % (Manual) 91.0 H Lymphocytes % (Manual) 4.0 L Monocytes % (Manual) Seg Neutrophils # Lymphocytes # (Manual) 0.3 L PT INR POC ABG pH POC ABG pCO2 33.2 L POC ABG pO2 76 L Sodium Potassium Chloride Carbon Dioxide BUN Creatinine Glucose POC Glucose 177 H Calcium AST C-Reactive Protein Total Protein Albumin TSH Urine pH Urine WBC (Auto) Vancomycin Trough Crossmatch 11/03/18 11/03/18 11/03/18 06:04 12:26 18:43 WBC RBC Hgb Hct MCV MCH RDW Plt Count Lymph % (Auto) [place] % (Auto) Lymph # Seg Neutrophils % Seg Neuts % (Manual) Lymphocytes % (Manual) Monocytes % (Manual) Seg Neutrophils # Lymphocytes # (Manual) PT INR POC ABG pH POC ABG pCO2 POC ABG pO2 Sodium Potassium Chloride Carbon Dioxide BUN Creatinine Glucose POC Glucose 168 H 196 H 153 H Calcium AST C-Reactive Protein Total Protein Albumin TSH Urine pH Urine WBC (Auto) Vancomycin Trough Crossmatch 11/03/18 11/04/18 11/04/18 23:34 03:50 05:05 WBC RBC 2.74 L Hgb 9.1 L Hct 27.3 L MCV 99 H MCH 33 H RDW 16.5 H Plt Count Lymph % (Auto) [place] % (Auto) Lymph # Seg Neutrophils % Seg Neuts % (Manual) 87.0 H Lymphocytes % (Manual) 7.0 L Monocytes % (Manual) Seg Neutrophils # Lymphocytes # (Manual) 0.5 L PT INR POC ABG pH POC ABG pCO2 31.7 L POC ABG pO2 74 L Sodium Potassium Chloride Carbon Dioxide BUN Creatinine Glucose POC Glucose 213 H Calcium AST C-Reactive Protein Total Protein Albumin TSH Urine pH Urine WBC (Auto) Vancomycin Trough Crossmatch 11/04/18 11/04/18 11/04/18 05:05 05:23 12:26 WBC RBC Hgb Hct MCV MCH RDW Plt Count Lymph % (Auto) [place] % (Auto) Lymph # Seg Neutrophils % Seg Neuts % (Manual) Lymphocytes % (Manual) Monocytes % (Manual) Seg Neutrophils # Lymphocytes # (Manual) PT INR POC ABG pH POC ABG pCO2 POC ABG pO2 Sodium Potassium Chloride Carbon Dioxide BUN 84 H Creatinine 3.3 H Glucose 177 H POC Glucose 196 H 182 H Calcium 7.6 L AST C-Reactive Protein Total Protein Albumin TSH Urine pH Urine WBC (Auto) Vancomycin Trough Crossmatch 11/04/18 11/04/18 11/05/18 13:25 22:36 05:07 WBC RBC Hgb Hct MCV MCH RDW Plt Count Lymph % (Auto) [place] % (Auto) Lymph # Seg Neutrophils % Seg Neuts % (Manual) Lymphocytes % (Manual) Monocytes % (Manual) Seg Neutrophils # Lymphocytes # (Manual) PT INR POC ABG pH POC ABG pCO2 30.1 L POC ABG pO2 63 L Sodium Potassium Chloride Carbon Dioxide BUN Creatinine Glucose POC Glucose 159 H Calcium AST C-Reactive Protein Total Protein Albumin TSH Urine pH Urine WBC (Auto) Vancomycin Trough 4.4 L Crossmatch 11/05/18 11/05/18 11/05/18 05:42 06:36 12:54 WBC RBC Hgb Hct MCV MCH RDW Plt Count Lymph % (Auto) [place] % (Auto) Lymph # Seg Neutrophils % Seg Neuts % (Manual) Lymphocytes % (Manual) Monocytes % (Manual) Seg Neutrophils # Lymphocytes # (Manual) PT INR POC ABG pH POC ABG pCO2 POC ABG pO2 Sodium 134 L Potassium 3.4 L Chloride Carbon Dioxide 18 L BUN 93 H Creatinine 3.7 H Glucose 230 H POC Glucose 233 H 237 H Calcium 7.8 L AST C-Reactive Protein Total Protein Albumin TSH Urine pH Urine WBC (Auto) Vancomycin Trough Crossmatch 11/05/18 11/05/18 11/06/18 19:36 23:35 01:59 WBC RBC Hgb Hct MCV MCH RDW Plt Count Lymph % (Auto) [place] % (Auto) Lymph # Seg Neutrophils % Seg Neuts % (Manual) Lymphocytes % (Manual) Monocytes % (Manual) Seg Neutrophils # Lymphocytes # (Manual) PT INR POC ABG pH POC ABG pCO2 POC ABG pO2 Sodium Potassium Chloride Carbon Dioxide BUN Creatinine Glucose POC Glucose 174 H 56 L 112 H Calcium AST C-Reactive Protein Total Protein Albumin TSH Urine pH Urine WBC (Auto) Vancomycin Trough Crossmatch 11/06/18 11/06/18 11/06/18 04:33 05:06 07:24 WBC RBC 2.83 L Hgb 9.3 L Hct 27.9 L MCV 99 H MCH 33 H RDW 15.9 H Plt Count 133 L Lymph % (Auto) [place] % (Auto) Lymph # Seg Neutrophils % Seg Neuts % (Manual) 94.0 H Lymphocytes % (Manual) 4.0 L Monocytes % (Manual) Seg Neutrophils # Lymphocytes # (Manual) 0.3 L PT INR POC ABG pH POC ABG pCO2 32.4 L POC ABG pO2 73 L Sodium Potassium Chloride Carbon Dioxide BUN Creatinine Glucose POC Glucose 139 H Calcium AST C-Reactive Protein Total Protein Albumin TSH Urine pH Urine WBC (Auto) Vancomycin Trough Crossmatch 11/06/18 11/06/18 11/06/18 07:24 11:52 17:16 WBC RBC Hgb Hct MCV MCH RDW Plt Count Lymph % (Auto) [place] % (Auto) Lymph # Seg Neutrophils % Seg Neuts % (Manual) Lymphocytes % (Manual) Monocytes % (Manual) Seg Neutrophils # Lymphocytes # (Manual) PT INR POC ABG pH POC ABG pCO2 POC ABG pO2 Sodium 136 L Potassium 3.2 L Chloride Carbon Dioxide BUN 59 H Creatinine 2.3 H Glucose 137 H POC Glucose 212 H 194 H Calcium 7.4 L AST C-Reactive Protein Total Protein Albumin TSH Urine pH Urine WBC (Auto) Vancomycin Trough Crossmatch 11/07/18 11/07/18 11/07/18 00:44 05:56 06:12 WBC RBC 2.64 L Hgb 8.7 L Hct 26.3 L MCV 100 H MCH 33 H RDW 15.7 H Plt Count Lymph % (Auto) 4.6 L [place] % (Auto) Lymph # 0.4 L Seg Neutrophils % 89.4 H Seg Neuts % (Manual) Lymphocytes % (Manual) Monocytes % (Manual) Seg Neutrophils # 8.3 H Lymphocytes # (Manual) PT INR POC ABG pH POC ABG pCO2 POC ABG pO2 Sodium Potassium Chloride Carbon Dioxide BUN Creatinine Glucose POC Glucose 193 H 145 H Calcium AST C-Reactive Protein Total Protein Albumin TSH Urine pH Urine WBC (Auto) Vancomycin Trough Crossmatch 11/07/18 11/07/18 11/07/18 06:12 12:20 17:27 WBC RBC Hgb Hct MCV MCH RDW Plt Count Lymph % (Auto) [place] % (Auto) Lymph # Seg Neutrophils % Seg Neuts % (Manual) Lymphocytes % (Manual) Monocytes % (Manual) Seg Neutrophils # Lymphocytes # (Manual) PT INR POC ABG pH POC ABG pCO2 POC ABG pO2 Sodium Potassium Chloride Carbon Dioxide BUN 74 H Creatinine 2.8 H Glucose 143 H POC Glucose 207 H 170 H Calcium 7.7 L AST C-Reactive Protein Total Protein Albumin TSH Urine pH Urine WBC (Auto) Vancomycin Trough Crossmatch 11/07/18 11/08/18 11/08/18 23:40 06:04 07:09 WBC RBC Hgb Hct MCV MCH RDW Plt Count Lymph % (Auto) [place] % (Auto) Lymph # Seg Neutrophils % Seg Neuts % (Manual) Lymphocytes % (Manual) Monocytes % (Manual) Seg Neutrophils # Lymphocytes # (Manual) PT 15.8 H INR 1.18 H POC ABG pH POC ABG pCO2 POC ABG pO2 Sodium Potassium Chloride Carbon Dioxide BUN Creatinine Glucose POC Glucose 188 H 170 H Calcium AST C-Reactive Protein Total Protein Albumin TSH Urine pH Urine WBC (Auto) Vancomycin Trough Crossmatch 11/08/18 11/08/18 11/08/18 11:21 18:29 23:10 WBC RBC Hgb Hct MCV MCH RDW Plt Count Lymph % (Auto) [place] % (Auto) Lymph # Seg Neutrophils % Seg Neuts % (Manual) Lymphocytes % (Manual) Monocytes % (Manual) Seg Neutrophils # Lymphocytes # (Manual) PT INR POC ABG pH POC ABG pCO2 POC ABG pO2 Sodium Potassium Chloride Carbon Dioxide BUN Creatinine Glucose POC Glucose 191 H 224 H 197 H Calcium AST C-Reactive Protein Total Protein Albumin TSH Urine pH Urine WBC (Auto) Vancomycin Trough Crossmatch 11/09/18 11/09/18 11/09/18 04:59 07:35 07:35 WBC RBC 2.51 L Hgb 8.3 L Hct 25.3 L MCV 101 H MCH 33 H RDW Plt Count Lymph % (Auto) [place] % (Auto) Lymph # Seg Neutrophils % Seg Neuts % (Manual) 79.0 H Lymphocytes % (Manual) 8.0 L Monocytes % (Manual) 9.0 H Seg Neutrophils # Lymphocytes # (Manual) 0.6 L PT INR POC ABG pH POC ABG pCO2 POC ABG pO2 Sodium 133 L Potassium 3.5 L Chloride Carbon Dioxide BUN 54 H Creatinine 2.4 H Glucose 166 H POC Glucose 173 H Calcium 8.0 L AST C-Reactive Protein Total Protein Albumin TSH Urine pH Urine WBC (Auto) Vancomycin Trough Crossmatch 11/09/18 11/09/18 11/09/18 11:47 15:17 17:15 WBC RBC Hgb Hct MCV MCH RDW Plt Count Lymph % (Auto) [place] % (Auto) Lymph # Seg Neutrophils % Seg Neuts % (Manual) Lymphocytes % (Manual) Monocytes % (Manual) Seg Neutrophils # Lymphocytes # (Manual) PT INR POC ABG pH POC ABG pCO2 POC ABG pO2 75 L Sodium Potassium Chloride Carbon Dioxide BUN Creatinine Glucose POC Glucose 226 H 202 H Calcium AST C-Reactive Protein Total Protein Albumin TSH Urine pH Urine WBC (Auto) Vancomycin Trough Crossmatch 11/10/18 11/10/18 11/10/18 00:04 04:34 04:34 WBC RBC 2.36 L Hgb 7.8 L Hct 24.1 L MCV 102 H MCH 33 H RDW Plt Count Lymph % (Auto) [place] % (Auto) Lymph # Seg Neutrophils % Seg Neuts % (Manual) 82.0 H Lymphocytes % (Manual) 6.0 L Monocytes % (Manual) Seg Neutrophils # Lymphocytes # (Manual) 0.3 L PT INR POC ABG pH POC ABG pCO2 POC ABG pO2 Sodium 136 L Potassium 3.2 L Chloride Carbon Dioxide BUN 39 H Creatinine 2.0 H Glucose 152 H POC Glucose 197 H Calcium 8.3 L AST C-Reactive Protein Total Protein 6.0 L Albumin 1.4 L TSH Urine pH Urine WBC (Auto) Vancomycin Trough Crossmatch 11/10/18 11/10/18 11/10/18 05:12 12:01 17:48 WBC RBC Hgb Hct MCV MCH RDW Plt Count Lymph % (Auto) [place] % (Auto) Lymph # Seg Neutrophils % Seg Neuts % (Manual) Lymphocytes % (Manual) Monocytes % (Manual) Seg Neutrophils # Lymphocytes # (Manual) PT INR POC ABG pH POC ABG pCO2 POC ABG pO2 Sodium Potassium Chloride Carbon Dioxide BUN Creatinine Glucose POC Glucose 163 H 139 H 215 H Calcium AST C-Reactive Protein Total Protein Albumin TSH Urine pH Urine WBC (Auto) Vancomycin Trough Crossmatch 11/10/18 11/11/18 11/11/18 23:51 04:45 06:05 WBC RBC Hgb Hct MCV MCH RDW Plt Count Lymph % (Auto) [place] % (Auto) Lymph # Seg Neutrophils % Seg Neuts % (Manual) Lymphocytes % (Manual) Monocytes % (Manual) Seg Neutrophils # Lymphocytes # (Manual) PT INR POC ABG pH POC ABG pCO2 34.2 L POC ABG pO2 Sodium Potassium Chloride Carbon Dioxide BUN Creatinine Glucose POC Glucose 243 H 175 H Calcium AST C-Reactive Protein Total Protein Albumin TSH Urine pH Urine WBC (Auto) Vancomycin Trough Crossmatch 11/11/18 11/11/18 11/11/18 06:07 06:07 18:06 WBC RBC 2.27 L Hgb 7.6 L Hct 22.6 L MCV 100 H MCH 33 H RDW Plt Count Lymph % (Auto) 10.7 L [place] % (Auto) Lymph # 0.6 L Seg Neutrophils % 81.0 H Seg Neuts % (Manual) 81.0 H Lymphocytes % (Manual) 11.0 L Monocytes % (Manual) Seg Neutrophils # Lymphocytes # (Manual) 0.6 L PT INR POC ABG pH POC ABG pCO2 POC ABG pO2 Sodium 134 L Potassium 3.2 L Chloride Carbon Dioxide BUN 58 H Creatinine 2.6 H Glucose 139 H POC Glucose 209 H Calcium 7.7 L AST C-Reactive Protein Total Protein 6.2 L Albumin 1.4 L TSH Urine pH Urine WBC (Auto) Vancomycin Trough Crossmatch 11/11/18 11/12/18 11/12/18 23:59 04:35 05:15 WBC RBC 2.28 L Hgb 7.4 L Hct 22.8 L MCV 100 H MCH 33 H RDW Plt Count Lymph % (Auto) 8.1 L [place] % (Auto) 7.9 H Lymph # 0.5 L Seg Neutrophils % 83.2 H Seg Neuts % (Manual) Lymphocytes % (Manual) Monocytes % (Manual) Seg Neutrophils # Lymphocytes # (Manual) PT INR POC ABG pH POC ABG pCO2 31.1 L POC ABG pO2 Sodium Potassium Chloride Carbon Dioxide BUN Creatinine Glucose POC Glucose 143 H Calcium AST C-Reactive Protein Total Protein Albumin TSH Urine pH Urine WBC (Auto) Vancomycin Trough Crossmatch 11/12/18 11/12/18 11/12/18 05:15 05:29 11:18 WBC RBC Hgb Hct MCV MCH RDW Plt Count Lymph % (Auto) [place] % (Auto) Lymph # Seg Neutrophils % Seg Neuts % (Manual) Lymphocytes % (Manual) Monocytes % (Manual) Seg Neutrophils # Lymphocytes # (Manual) PT INR POC ABG pH POC ABG pCO2 POC ABG pO2 Sodium 133 L Potassium Chloride Carbon Dioxide 21 L BUN 70 H Creatinine 2.8 H Glucose 165 H POC Glucose 186 H 153 H Calcium 7.9 L AST 81 H C-Reactive Protein Total Protein 5.9 L Albumin 1.4 L TSH Urine pH Urine WBC (Auto) Vancomycin Trough Crossmatch 11/12/18 11/12/18 11/13/18 17:55 23:29 05:13 WBC RBC 2.15 L Hgb 7.1 L Hct 21.6 L MCV 101 H MCH 33 H RDW Plt Count Lymph % (Auto) [place] % (Auto) Lymph # Seg Neutrophils % Seg Neuts % (Manual) 81.0 H Lymphocytes % (Manual) 3.0 L Monocytes % (Manual) 8.0 H Seg Neutrophils # Lymphocytes # (Manual) 0.2 L PT INR POC ABG pH POC ABG pCO2 POC ABG pO2 Sodium Potassium Chloride Carbon Dioxide BUN Creatinine Glucose POC Glucose 138 H 227 H Calcium AST C-Reactive Protein Total Protein Albumin TSH Urine pH Urine WBC (Auto) Vancomycin Trough Crossmatch 11/13/18 11/13/18 11/13/18 05:13 05:25 11:21 WBC RBC Hgb Hct MCV MCH RDW Plt Count Lymph % (Auto) [place] % (Auto) Lymph # Seg Neutrophils % Seg Neuts % (Manual) Lymphocytes % (Manual) Monocytes % (Manual) Seg Neutrophils # Lymphocytes # (Manual) PT INR POC ABG pH POC ABG pCO2 POC ABG pO2 Sodium 133 L Potassium Chloride Carbon Dioxide BUN 48 H Creatinine 2.2 H Glucose 155 H POC Glucose 159 H 149 H Calcium 8.3 L AST C-Reactive Protein Total Protein Albumin TSH Urine pH Urine WBC (Auto) Vancomycin Trough Crossmatch 11/13/18 11/13/18 11/14/18 18:06 23:29 04:32 WBC RBC Hgb Hct MCV MCH RDW Plt Count Lymph % (Auto) [place] % (Auto) Lymph # Seg Neutrophils % Seg Neuts % (Manual) Lymphocytes % (Manual) Monocytes % (Manual) Seg Neutrophils # Lymphocytes # (Manual) PT 16.9 H INR 1.29 H POC ABG pH POC ABG pCO2 POC ABG pO2 Sodium Potassium Chloride Carbon Dioxide BUN Creatinine Glucose POC Glucose 192 H 176 H Calcium AST C-Reactive Protein Total Protein Albumin TSH Urine pH Urine WBC (Auto) Vancomycin Trough Crossmatch 11/14/18 11/14/18 11/14/18 04:32 04:32 05:59 WBC RBC 2.16 L Hgb 7.0 L Hct 21.5 L MCV 100 H MCH 33 H RDW Plt Count Lymph % (Auto) 5.3 L [place] % (Auto) 9.3 H Lymph # 0.4 L Seg Neutrophils % 84.8 H Seg Neuts % (Manual) Lymphocytes % (Manual) Monocytes % (Manual) Seg Neutrophils # Lymphocytes # (Manual) PT INR POC ABG pH POC ABG pCO2 POC ABG pO2 Sodium 131 L Potassium Chloride 97.6 L Carbon Dioxide BUN 59 H Creatinine 2.6 H Glucose 129 H POC Glucose 135 H Calcium 8.3 L AST C-Reactive Protein Total Protein Albumin TSH Urine pH Urine WBC (Auto) Vancomycin Trough Crossmatch 11/14/18 11/14/18 11/14/18 12:15 20:00 23:26 WBC RBC Hgb Hct MCV MCH RDW Plt Count Lymph % (Auto) [place] % (Auto) Lymph # Seg Neutrophils % Seg Neuts % (Manual) Lymphocytes % (Manual) Monocytes % (Manual) Seg Neutrophils # Lymphocytes # (Manual) PT INR POC ABG pH POC ABG pCO2 POC ABG pO2 Sodium Potassium Chloride Carbon Dioxide BUN Creatinine Glucose POC Glucose 204 H 147 H Calcium AST C-Reactive Protein Total Protein Albumin TSH Urine pH Urine WBC (Auto) Vancomycin Trough Crossmatch See Detail 11/15/18 11/15/18 11/15/18 05:18 07:40 11:58 WBC RBC 2.59 L Hgb 8.3 L Hct 25.2 L MCV 97 H MCH RDW Plt Count Lymph % (Auto) [place] % (Auto) Lymph # Seg Neutrophils % Seg Neuts % (Manual) Lymphocytes % (Manual) Monocytes % (Manual) Seg Neutrophils # Lymphocytes # (Manual) PT INR POC ABG pH POC ABG pCO2 POC ABG pO2 Sodium Potassium Chloride Carbon Dioxide BUN Creatinine Glucose POC Glucose 154 H 153 H Calcium AST C-Reactive Protein Total Protein Albumin TSH Urine pH Urine WBC (Auto) Vancomycin Trough Crossmatch 11/15/18 11/15/18 11/16/18 13:23 18:24 01:12 WBC RBC Hgb Hct MCV MCH RDW Plt Count Lymph % (Auto) [place] % (Auto) Lymph # Seg Neutrophils % Seg Neuts % (Manual) Lymphocytes % (Manual) Monocytes % (Manual) Seg Neutrophils # Lymphocytes # (Manual) PT INR POC ABG pH POC ABG pCO2 34.9 L POC ABG pO2 74 L Sodium Potassium Chloride Carbon Dioxide BUN Creatinine Glucose POC Glucose 210 H 127 H Calcium AST C-Reactive Protein Total Protein Albumin TSH Urine pH Urine WBC (Auto) Vancomycin Trough Crossmatch 11/16/18 11/16/18 11/16/18 05:45 05:45 06:02 WBC 13.6 H RBC 2.70 L Hgb 8.5 L Hct 26.2 L MCV 97 H MCH RDW 15.7 H Plt Count Lymph % (Auto) 4.3 L [place] % (Auto) Lymph # 0.6 L Seg Neutrophils % 88.3 H Seg Neuts % (Manual) Lymphocytes % (Manual) Monocytes % (Manual) Seg Neutrophils # 12.1 H Lymphocytes # (Manual) PT INR POC ABG pH POC ABG pCO2 POC ABG pO2 Sodium 133 L Potassium Chloride Carbon Dioxide BUN 47 H Creatinine 2.2 H Glucose 160 H POC Glucose 145 H Calcium AST C-Reactive Protein Total Protein 5.7 L Albumin 1.2 L TSH Urine pH Urine WBC (Auto) Vancomycin Trough Crossmatch 11/16/18 08:48 WBC RBC Hgb Hct MCV MCH RDW Plt Count Lymph % (Auto) [place] % (Auto) Lymph # Seg Neutrophils % Seg Neuts % (Manual) Lymphocytes % (Manual) Monocytes % (Manual) Seg Neutrophils # Lymphocytes # (Manual) PT INR POC ABG pH POC ABG pCO2 POC ABG pO2 79 L Sodium Potassium Chloride Carbon Dioxide BUN Creatinine Glucose POC Glucose Calcium AST C-Reactive Protein Total Protein Albumin TSH Urine pH Urine WBC (Auto) Vancomycin Trough Crossmatch Chest x-ray: image reviewed Allied health notes reviewed: RT
[2018-11-16] MEDS ORDERED: VITAMIN D2 PO SCH (10:00)
--- NOTE | 2018-11-16 10:29 | Progress Note ---
Assessment and Plan 1. ESRD: Continue hemodialysis three times a week. Patient was last dialyzed 2 days ago. HD today. Monitor for [employer] MGR needs. Clotted R arm AVF. 2. FEN: Hypokalemia, replete K as needed. Hypernatremia, improved. UF with HD as tolerated. 3. Respiratory failure: On vent. 4. Septic Shock: Levophed off and on. 5. Pneumonia. 6. Anemia: Epogen. Being transferred to LTAC today. Subjective Date of service: 11/16/18 Principal diagnosis: Acute hypoxemic resp failure; Severe sepsis with shock;acute encephaloapthy Interval history: Patient was seen and examined at the bedside. Objective - Vital Signs Vital signs: Vital Signs - 12hr 11/15/18 11/15/18 11/15/18 22:30 22:45 23:00 Temperature Pulse Rate 99 H 100 H 100 H Pulse Rate [ 98 H From Monitor] Pulse Rate [ 97 H Left Brachial] Pulse Rate [ 96 H Left Radial] Pulse Rate [ 98 H Right Radial] Respiratory 24 21 24 Rate Blood Pressure 158/66 161/67 142/65 O2 Sat by Pulse 100 100 100 Oximetry O2 Sat by Pulse Oximetry [ Anterior Bilateral] 11/15/18 11/15/18 11/15/18 23:15 23:30 23:44 Temperature Pulse Rate 98 H 99 H 98 H Pulse Rate [ From Monitor] Pulse Rate [ Left Brachial] Pulse Rate [ Left Radial] Pulse Rate [ Right Radial] Respiratory 26 H 18 Rate Blood Pressure 144/63 153/65 153/65 O2 Sat by Pulse 100 100 100 Oximetry O2 Sat by Pulse Oximetry [ Anterior Bilateral] 11/15/18 11/16/18 11/16/18 23:45 00:00 00:15 Temperature 100.2 F H Pulse Rate 98 H 99 H 98 H Pulse Rate [ From Monitor] Pulse Rate [ Left Brachial] Pulse Rate [ Left Radial] Pulse Rate [ Right Radial] Respiratory 17 24 25 H Rate Blood Pressure 145/63 150/62 148/62 O2 Sat by Pulse 100 100 100 Oximetry O2 Sat by Pulse Oximetry [ Anterior Bilateral] 11/16/18 11/16/18 11/16/18 00:30 00:45 01:00 Temperature Pulse Rate 97 H 99 H 98 H Pulse Rate [ From Monitor] Pulse Rate [ Left Brachial] Pulse Rate [ Left Radial] Pulse Rate [ Right Radial] Respiratory 22 22 19 Rate Blood Pressure 146/63 162/64 136/58 O2 Sat by Pulse 100 99 99 Oximetry O2 Sat by Pulse Oximetry [ Anterior Bilateral] 11/16/18 11/16/18 11/16/18 01:16 01:30 01:45 Temperature Pulse Rate 99 H 100 H 100 H Pulse Rate [ From Monitor] Pulse Rate [ Left Brachial] Pulse Rate [ Left Radial] Pulse Rate [ Right Radial] Respiratory 24 36 H 35 H Rate Blood Pressure 140/61 131/55 122/55 O2 Sat by Pulse 99 99 99 Oximetry O2 Sat by Pulse Oximetry [ Anterior Bilateral] 11/16/18 11/16/18 11/16/18 02:00 02:15 02:30 Temperature Pulse Rate 100 H 99 H 100 H Pulse Rate [ From Monitor] Pulse Rate [ Left Brachial] Pulse Rate [ Left Radial] Pulse Rate [ Right Radial] Respiratory 35 H 35 H 36 H Rate Blood Pressure 128/52 124/51 127/52 O2 Sat by Pulse 99 99 99 Oximetry O2 Sat by Pulse Oximetry [ Anterior Bilateral] 11/16/18 11/16/18 11/16/18 02:45 03:00 03:15 Temperature Pulse Rate 100 H 101 H 102 H Pulse Rate [ 98 H From Monitor] Pulse Rate [ 105 H Left Brachial] Pulse Rate [ 96 H Left Radial] Pulse Rate [ 98 H Right Radial] Respiratory 36 H 38 H 37 H Rate Blood Pressure 130/56 132/53 131/52 O2 Sat by Pulse 99 99 99 Oximetry O2 Sat by Pulse Oximetry [ Anterior Bilateral] 11/16/18 11/16/18 11/16/18 03:30 03:31 03:45 Temperature Pulse Rate 103 H 102 H 101 H Pulse Rate [ From Monitor] Pulse Rate [ Left Brachial] Pulse Rate [ Left Radial] Pulse Rate [ Right Radial] Respiratory 36 H 38 H Rate Blood Pressure 129/53 129/53 131/53 O2 Sat by Pulse 99 99 99 Oximetry O2 Sat by Pulse Oximetry [ Anterior Bilateral] 11/16/18 11/16/18 11/16/18 04:00 04:15 04:30 Temperature 99.1 F Pulse Rate 103 H 102 H 102 H Pulse Rate [ From Monitor] Pulse Rate [ Left Brachial] Pulse Rate [ Left Radial] Pulse Rate [ Right Radial] Respiratory 38 H 38 H 37 H Rate Blood Pressure 125/51 122/51 126/50 O2 Sat by Pulse 99 99 99 Oximetry O2 Sat by Pulse Oximetry [ Anterior Bilateral] 11/16/18 11/16/18 11/16/18 04:45 05:00 05:15 Temperature Pulse Rate 102 H 102 H 103 H Pulse Rate [ From Monitor] Pulse Rate [ Left Brachial] Pulse Rate [ Left Radial] Pulse Rate [ Right Radial] Respiratory 37 H 38 H 39 H Rate Blood Pressure 130/49 122/50 127/50 O2 Sat by Pulse 99 99 99 Oximetry O2 Sat by Pulse Oximetry [ Anterior Bilateral] 11/16/18 11/16/18 11/16/18 05:30 05:46 06:00 Temperature Pulse Rate 103 H 104 H 106 H Pulse Rate [ From Monitor] Pulse Rate [ Left Brachial] Pulse Rate [ Left Radial] Pulse Rate [ Right Radial] Respiratory 38 H 40 H 38 H Rate Blood Pressure 125/51 151/57 106/42 O2 Sat by Pulse 99 100 99 Oximetry O2 Sat by Pulse Oximetry [ Anterior Bilateral] 11/16/18 11/16/18 11/16/18 06:15 06:30 06:45 Temperature Pulse Rate 106 H 117 H 111 H Pulse Rate [ From Monitor] Pulse Rate [ Left Brachial] Pulse Rate [ Left Radial] Pulse Rate [ Right Radial] Respiratory 39 H Rate Blood Pressure 106/56 127/58 113/48 O2 Sat by Pulse 99 88 95 Oximetry O2 Sat by Pulse Oximetry [ Anterior Bilateral] 11/16/18 11/16/18 11/16/18 07:00 07:15 09:45 Temperature 98.8 F Pulse Rate 105 H 104 H 109 H Pulse Rate [ From Monitor] Pulse Rate [ Left Brachial] Pulse Rate [ Left Radial] Pulse Rate [ Right Radial] Respiratory 38 H 18 Rate Blood Pressure 101/42 107/49 129/49 O2 Sat by Pulse 97 97 Oximetry O2 Sat by Pulse 97 Oximetry [ Anterior Bilateral] 11/16/18 11/16/18 10:00 10:15 Temperature Pulse Rate 109 H 110 H Pulse Rate [ From Monitor] Pulse Rate [ Left Brachial] Pulse Rate [ Left Radial] Pulse Rate [ Right Radial] Respiratory Rate Blood Pressure 129/48 110/47 O2 Sat by Pulse Oximetry O2 Sat by Pulse Oximetry [ Anterior Bilateral] - General Appearance General appearance: well-developed, appears stated age, other (Trached, on vent) EENT: ATNC Neck: other (Trached) Respiratory: Present: Clear to Ascultation Cardiology: regular, tachycardia, S1S2, no murmurs Gastrointestinal: normoactive bowel sounds, other (PEG tube and suprapubic catheter noted) Integumentary: no rash Neurologic: obtunded Musculoskeletal: other (extremity edema noted, L groin dialysis catheter) - Lab 11/16/18 05:45 11/16/18 05:45 Most recent lab results Calcium 8.5 mg/dL (8.4-10.2) 11/16/18 05:45 Phosphorus 3.10 mg/dL (2.5-4.5) 11/05/18 06:36 Medications & Allergies - Medications Allergies/Adverse Reactions: Allergies No Known Allergies Allergy (Verified 01/18/18 20:10) Home Medications: Home Medications Medication Instructions Recorded Confirmed Last Taken Type Acetaminophen [Acetaminophen TAB] 650 mg PO Q4H PRN 03/12/18 10/31/18 Unknown History Calcium Acetate [Phoslo] 667 mg PO TID 03/12/18 10/31/18 05/13/18 17:00 History Carvedilol [Coreg] 6.25 mg PO BID 03/12/18 10/31/18 05/13/18 09:00 History Ergocalciferol 50,000 unit PO QWEEK 03/12/18 10/31/18 05/11/18 09:00 History Apixaban [Eliquis] 2.5 mg PO BID tablet 08/21/18 10/31/18 Unknown Rx Megestrol [Megace] 400 mg PO QDAY 10/31/18 10/31/18 Unknown History Mirtazapine [Remeron] 15 mg PO QHS 10/31/18 10/31/18 Unknown History Elaine-José Rx Tablet 1 tab PO QDAY 10/31/18 10/31/18 Unknown History Sodium Bicarbonate 650 mg PO BID 10/31/18 10/31/18 Unknown History traMADol [Ultram 50 MG tab] 25 mg PO Q12H PRN 10/31/18 10/31/18 Unknown History Active Medications: Generic Name Dose Route Start Last Admin Trade Name Freq PRN Reason Stop Dose Admin Acetaminophen 650 mg 11/02/18 09:25 11/09/18 18:46 Tylenol FEEDTUBE 650 mg Q6H PRN Administration Fever >101 Albuterol 2.5 mg 11/15/18 12:23 Proventil IH Q4HRT PRN Shortness Of Breath Lipase/Protease/Amylase 1 each 11/01/18 10:[address] 10,500 Unit FEEDTUBE PRN PRN For Clogged Feeding Tube Calcium Acetate 667 mg 11/13/18 08:00 11/15/18 17:55 Phoslo PO 667 mg TIDWM KIRSTEN Administration Epoetin [place] 20,000 unit 11/05/18 10:21 11/12/18 17:30 Procrit SUB-Q 20,000 unit ALEJO PRN Administration hemodialysis Ergocalciferol 50,000 unit 11/16/18 10:00 Vitamin D2 PO Fr KIRSTEN Famotidine 20 mg 11/01/18 10:00 11/15/18 09:22 Pepcid PO 20 mg DAILY KIRSTEN Administration Heparin Sodium (Porcine) 5,000 unit 10/29/18 22:00 11/15/18 22:16 Heparin SUB-Q 5,000 unit Q8HR KIRSTEN Administration Norepinephrine 4 mg in 250 mls @ 7.5 mls/hr 10/30/18 01:00 11/16/18 05:48 Levophed Drip 4 Mg/Ns 250 Ml IV 0 mcg/min TITR KIRSTEN 0 mls/hr Titration Protocol 2 MCG/MIN Sodium Chloride 100 mls @ 999 mls/hr 11/09/18 08:48 Nacl 0.9% IV ALEJO PRN Hypotension Sodium Chloride 100 mls @ 999 mls/hr 11/14/18 08:49 Nacl 0.9% IV ALEJO PRN Hypotension Sodium Chloride 100 mls @ 999 mls/hr 11/16/18 08:36 Nacl 0.9% IV ALEJO PRN Hypotension Insulin Human Lispro 0 unit 10/30/18 10:00 11/15/18 18:47 Humalog SUB-Q 4 unit Q6HR KIRSTEN Administration Protocol Levetiracetam 500 mg 11/07/18 10:00 11/15/18 22:15 Keppra PO 500 mg BID KIRSTEN Administration Midodrine 10 mg 11/13/18 11:00 11/15/18 20:00 Proamatine PO 10 mg TID KIRSTEN Administration Multivit/Ca Carb/B Cmplx/FA/Prenat 1 cap 11/13/18 10:00 11/15/18 09:26 Renal Caps PO 1 cap QDAY KIRSTEN Administration Simple Syrup 15 ml 11/01/18 10:04 11/06/18 00:09 Simple Syrup FEEDTUBE 15 ml PRN PRN Administration Hypoglycemia Simple Syrup 30 ml 11/01/18 10:04 Simple Syrup FEEDTUBE PRN PRN Hypoglycemia Sodium Bicarbonate 325 mg 11/01/18 10:04 Sodium Bicarbonate FEEDTUBE PRN PRN For Clogged Feeding Tube Sodium Bicarbonate 650 mg 11/13/18 10:00 11/15/18 22:15 Sodium Bicarbonate PO 650 mg BID KIRSTEN Administration
[2018-11-16] MEDS: PROCRIT SUB-Q PRN (10:42)
[2018-11-16] MEDS: PEPCID PO SCH (10:52)
[2018-11-16] MEDS ORDERED: SODIUM BICARBONATE FEEDTUBE PRN (11:35)
[2018-11-16] MEDS ORDERED: PANCREAZE DR 10,500 UNIT FEEDTUBE PRN (11:35)
[2018-11-16] MEDS ORDERED: SIMPLE SYRUP FEEDTUBE PRN ×2 (11:35)
[2018-11-16 13:04] VITALS: BP 120/65
[2018-11-16] MEDS: HumaLOG SUB-Q SCH (14:40)
[2018-11-16] MEDS: KEPPRA PO SCH (15:03)
--- NOTE | 2018-11-16 15:43 | Discharge Summary ---
Providers - Providers Date of Admission: 10/29/18 18:49 Date of discharge: 11/16/18 Attending physician: KATTY SLATER 10/29/18 18:55 Consult to Physician [CONS] Routine Comment: Consulting Provider: BEVERLY KNIGHT Physician Instructions: Reason For Exam: Dialysis, uremia, hyperkalemia 10/29/18 23:24 Consult to Dietitian/Nutrition [CONS] Routine Physician Instructions: Reason For Exam: Reason for Consult: Write/Manage Tube Feeding 10/29/18 23:27 Consult to Wound/ET Nurse [CONS] Routine Reason For Exam: wound eval 10/30/18 07:49 Consult to Physician [CONS] Routine Comment: Consulting Provider: JESSICA MILLS Physician Instructions: Reason For Exam: critical care management 10/31/18 09:19 Consult to Physician [CONS] Routine Comment: Consulting Provider: LINDA MEYERS Physician Instructions: Reason For Exam: central veneous line 11/02/18 08:38 Consult to Physician [CONS] Routine Comment: Consulting Provider: MADINA NARVAEZ Physician Instructions: Reason For Exam: fever 11/03/18 17:38 Consult to Case Management [CONS] Routine Services Needed at Discharge: Other Comment:: LTAC placement 11/04/18 14:49 Consult to Physician [CONS] Routine Comment: Consulting Provider: LINDA PINO Physician Instructions: Reason For Exam: encephalopathy, fixed lateral gaze 11/07/18 23:49 Consult to Physician [CONS] Routine Comment: Consulting Provider: WARREN GIBSON Physician Instructions: Reason For Exam: treach/peg placement. Primary care physician: KATTY SLATER Hospitalization Reason for admission: Sepsis, acute resp failure/ anemia. Condition: Serious Pertinent studies: Peg/Treach. Hospital course: Patient from the [place], presented to the ER. due to decline in his condition, he had been refusing HD, and diet, He was found to be septic, treated, admitted to the ICU, on the vent, and presors.Constant dialogue was held with the family, including need for code status, prognosis, and disposition. Patient had EEG done, and read by the neurology as slow wave activity.Family had declined withdrawal, of hospice at this time, but made him a DNR.He has hx of prostate cancer, and is anemic .His prognosis remains quite poor at this time, and family have elected LTAC, and patient is [facility].He is currently on HD. Disposition: [id number] - Discharge Diagnoses (1) Altered mental status Status: Acute Qualifiers: Altered mental status type: unspecified Qualified Code(s): R41.82 - Altered mental status, unspecified (2) Hyperkalemia Status: Chronic (3) Hypernatremia Status: Chronic (4) Uremia Status: Chronic (5) Acute encephalopathy Status: Chronic (6) ESRD needing dialysis Status: Chronic (7) Sepsis Status: Acute Core Measure Documentation - Palliative Care Palliative Care/ Comfort Measures: Not Applicable - Core Measures Any of the following diagnoses?: history only Exam - Constitutional Vitals: Temp Pulse Resp BP Pulse Ox 98.8 F 123 H 18 120/65 97 11/16/18 13:07 11/16/18 13:07 11/16/18 13:07 11/16/18 13:07 11/16/18 13:07 General appearance: Present: severe distress, cachectic - EENT Eyes: Present: PERRL ENT: hearing intact, clear oral mucosa - Respiratory Respiratory: bilateral: other (on the vent.) - Cardiovascular Heart Sounds: Present: S1 & S2. Absent: rub, click - Extremities Extremities: No edema Extremity abnormal: pulses diminished, other (bila amputation.) - Abdominal General gastrointestinal: Present: soft, non-tender, non-distended, normal bowel sounds Male genitourinary: Present: deferred - Rectal Rectal Exam: deferred - Integumentary Integumentary: Present: clear, warm, dry Plan Activity: up only with assistance, other (bed ridden) Diet: per dietitian instruction Wound: per wound nurse instructions (Patient will continue the same meds.) Follow up with: KATTY SLATER DO [Primary Care Provider] - 3-5 Days
[2018-11-19] MEDS ORDERED: ERGOCALCIFEROL 50000 UNIT PO SCH (10:00)
== END 2018-11-16 17:00 | DRG 4 ==
LOC: ED 14:47 → 4A 18:49 → CC1 23:18
PROVIDERS: ADMIT Internal Medicine Hematology & Oncology; ATTEND Internal Medicine Hematology & Oncology
PROC: 5A1955Z Respiratory Ventilation, Greater than 96 Consecutive Hours (ICD-10-PCS; principal; 2018-10-29)
PROC: 0BH17EZ Insertion of Endotracheal Airway into Trachea, Via Natural or Artificial Opening (ICD-10-PCS; 2018-10-29)
PROC: 5A12012 Performance of Cardiac Output, Single, Manual (ICD-10-PCS; 2018-10-29)
PROC: 3E0V3GC Introduction of Other Therapeutic Substance into Bones, Percutaneous Approach (ICD-10-PCS; 2018-10-29)
PROC: 5A1D70Z Performance of Urinary Filtration, Intermittent, Less than 6 Hours Per Day (ICD-10-PCS; 2018-10-29)
PROC: 4A033R1 Measurement of Arterial Saturation, Peripheral, Percutaneous Approach (ICD-10-PCS; 2018-10-30)
PROC: 06HY33Z Insertion of Infusion Device into Lower Vein, Percutaneous Approach (ICD-10-PCS; 2018-10-31)
PROC: 5A1D70Z Performance of Urinary Filtration, Intermittent, Less than 6 Hours Per Day (ICD-10-PCS; 2018-11-01)
PROC: 06PYX3Z Removal of Infusion Device from Lower Vein, External Approach (ICD-10-PCS; 2018-11-01)
PROC: 06HN33Z Insertion of Infusion Device into Left Femoral Vein, Percutaneous Approach (ICD-10-PCS; 2018-11-01)
PROC: 5A1D70Z Performance of Urinary Filtration, Intermittent, Less than 6 Hours Per Day (ICD-10-PCS; 2018-11-05)
PROC: 5A1D70Z Performance of Urinary Filtration, Intermittent, Less than 6 Hours Per Day (ICD-10-PCS; 2018-11-07)
PROC: 5A1D70Z Performance of Urinary Filtration, Intermittent, Less than 6 Hours Per Day (ICD-10-PCS; 2018-11-09)
PROC: 5A1D70Z Performance of Urinary Filtration, Intermittent, Less than 6 Hours Per Day (ICD-10-PCS; 2018-11-12)
PROC: 0B113F4 Bypass Trachea to Cutaneous with Tracheostomy Device, Percutaneous Approach (ICD-10-PCS; 2018-11-14)
PROC: 30233N1 Transfusion of Nonautologous Red Blood Cells into Peripheral Vein, Percutaneous Approach (ICD-10-PCS; 2018-11-14)
PROC: 5A1D70Z Performance of Urinary Filtration, Intermittent, Less than 6 Hours Per Day (ICD-10-PCS; 2018-11-14)
PROC: 0BJ08ZZ Inspection of Tracheobronchial Tree, Via Natural or Artificial Opening Endoscopic (ICD-10-PCS; 2018-11-14)
PROC: 0DH63UZ Insertion of Feeding Device into Stomach, Percutaneous Approach (ICD-10-PCS; 2018-11-14)
PROC: 5A1D70Z Performance of Urinary Filtration, Intermittent, Less than 6 Hours Per Day (ICD-10-PCS; 2018-11-16)
DX: A41.9 Sepsis, unspecified organism (principal); E11.00 Type 2 diabetes mellitus with hyperosmolarity without nonketotic hyperglycemic-hyperosmolar coma (NKHHC); N18.6 End stage renal disease; J96.01 Acute respiratory failure with hypoxia; E43 Unspecified severe protein-calorie malnutrition; G92 Toxic encephalopathy; R65.21 Severe sepsis with septic shock; J18.9 Pneumonia, unspecified organism; I46.9 Cardiac arrest, cause unspecified; G93.1 Anoxic brain damage, not elsewhere classified; E87.0 Hyperosmolality and hypernatremia; Z68.1 Body mass index [BMI] 19.9 or less, adult; T82.868A Thrombosis due to vascular prosthetic devices, implants and grafts, initial encounter; C61 Malignant neoplasm of prostate; E87.5 Hyperkalemia; L89.319 Pressure ulcer of right buttock, unspecified stage; J32.3 Chronic sphenoidal sinusitis; Z66 Do not resuscitate; E11.22 Type 2 diabetes mellitus with diabetic chronic kidney disease; Z86.718 Personal history of other venous thrombosis and embolism; Z79.4 Long term (current) use of insulin; Z79.01 Long term (current) use of anticoagulants; Z89.611 Acquired absence of right leg above knee; Z99.2 Dependence on renal dialysis; Z95.828 Presence of other vascular implants and grafts; Y83.2 Surgical operation with anastomosis, bypass or graft as the cause of abnormal reaction of the patient, or of later complication, without mention of misadventure at the time of the procedure; Y92.238 Other place in hospital as the place of occurrence of the external cause
CPT/HCPCS: 36415; 36600; 70450; 71045; 74018; 80048; 80053; 80177; 80202; 80320; 81001; 82040; 82140; 82803; 82947; 82962; 83036; 84100; 84443; 85007; 85025; 85027; 85610; 85730; 86140; 86850; 86900; 86901; 86920; 87040; 87070; 87076; 87086; 87186; 87205; 93005; 93010; 94002; 94003; 95819; G0378; G0480; J0171; J0461; J0610; J0692; J0696; J0885; J1644; J1815; J2060; J2270; J2704; J3010; J3370; J7030; J7040; P9016